=== PATIENT | male | born 1945 | race Caucasian/White ===

== ENCOUNTER 2024-06-13 13:26 | Emergency (ER) | payer MEDICARE, SELFPAY ==
--- NOTE | ~2024-06-13 | XR_ITS ---
EXAMINATION: XR CHEST CLINICAL INFORMATION: Vomiting hypoxia evaluate for pneumonia. COMPARISON: Prior chest March 2012. TECHNIQUE: Frontal view of the chest was obtained. FINDINGS: Sternotomy wires in place intact. Lungs clear. Cardiomediastinal silhouette is normal. Spondylosis of the dorsal spine. XR/XR chest 1V IMPRESSION: No acute disease. No x-ray evidence of pneumonia Electronically signed by: Wm Taylor MD 06/13/2024 04:20 PM EDT
[2024-06-13 13:42] VITALS: BP 161/101; PULSE 70; O2SAT 97; BMI 32.2
[2024-06-13 13:55] VITALS: BP 150/81; PULSE 77; RESP 20; TEMP 36.8; O2SAT 88
--- NOTE | 2024-06-13 14:02 | ED.SEIZURE ---
HPI - Seizure General Chief Complaint: Seizure Stated Complaint: ?SZ,VOMITED,ETOH USE PER EMS Time Seen by Provider: 06/13/24 14:02 Source: patient and RN notes reviewed Mode of arrival: ambulatory Limitations: no limitations History of Present Illness ED Provider: Dr. Darrel Burden HPI Narrative: 78-year-old male history of coronary disease status post CABG 4 years prior, alcohol use disorder who was brought into the emergency department for evaluation of seizure and vomiting. Information comes mainly from the patient's sister and SUPPLY CHAIN ASSISTANT. The patient is a daily alcohol drinker. the patient cannot estimate how much alcohol he drinks daily. He patient's SUPPLY CHAIN ASSISTANT states the patient was in bed and when she went to check on him he appeared to be lethargic he then started shaking and was foaming from the mouth. He had 1 episode of emesis. She called 911. When the ambulance arrived the patient was awake but confused. Patient was transported to the emergency department by the time he arrived in the emergency department he was awake he was able to tell me his name, he did not know why he was here in the emergency department. The patient has no complaints. Patient's sister states the patient has never had a seizure. She is unaware if he has ever had alcohol withdrawal or delirium tremens Related Data Allergies Allergy/AdvReac Type Severity Reaction Status Date / Time No Known Allergies Allergy Verified 06/13/24 13:44 Review of Systems Review of Systems: Yes all other systems are reviewed and are negative [facility] Past Medical History [facility] Narrative: Social history: The patient lives alone. His sister and SUPPLY CHAIN ASSISTANT here in the emergency department with him. He denies tobacco use. He does drink alcohol but cannot estimate how much he drinks a day. He believes that he had 1 beer today. He denies drug use Social History Social History Alcohol intake: current Alcohol intake frequency: 3 or more drinks per day Smoked in Last 30 Days: No Use of substances other than those prescribed or required for medical reasons: No Advance Directives: Yes Advance Directives on File: Yes Advance Directives Date on File: 06/13/24 Do you have a plan to hurt others: No Plan Physical Exam Vital Signs: Vital Signs: Last Vital Signs Temp 98.4 F 06/13/24 18:39 Pulse 101 H 06/13/24 18:39 Resp 20 06/13/24 18:39 BP 144/69 H 06/13/24 18:39 Pulse Ox 95 06/13/24 18:39 O2 Del Method Room Air 06/13/24 18:39 O2 Flow Rate 2 06/13/24 15:06 BMI result Body Mass Index 32.2 vital signs revealed an elevated heart rate of 101, elevated blood pressure 144/96 O2 saturation on room air was 92% and on 2 L per minute nasal cannula O2 saturation was 95%. Exam: General: Awake, alert in no distress , disheveled Head: Normocephalic, atraumatic EENT: PERRL, Lids normal, sclera normal, conjunctiva normal, nose normal , ears normal, throat without erythema or exudates Neck: Supple, no adenopathy Lung: breath sounds symmetric, no wheezing, rales or rhonchi Chest: symmetric movement, nontender Heart: regular rate and rhythm, normal S1, S2 no murmurs or rubs Abdomen: soft, non-tender, nondistended, normal bowel sounds Back: no vertebral tenderness, no CVAT Extremities: no deformities, moves all extremities symmetrically Neuro: Awake, alert, oriented, normal speech, cranial nerves intact, moves all extremities symmetrically Psych: cooperative Medications Administered Discontinued Medications Generic Name Dose Route Start Last Admin Trade Name Freq PRN Reason Stop Dose Admin Sodium Chloride 1,000 mls @ 999 mls/hr 06/13/24 14:03 06/13/24 15:12 Ns IV 06/13/24 15:03 999 mls/hr .Q1H1M STA Administration Ondansetron HCl 4 mg 06/13/24 14:03 06/13/24 15:17 Ondansetron Hcl 4 Mg/2 Ml Vial IVPUSH 06/13/24 14:04 4 mg ONCE ONE Administration Medical Decision Making Medical Decision Making MDM Narrative: 78-year-old male history of coronary disease status post CABG 4 years prior, alcohol use disorder who was brought into the emergency department for evaluation of seizure and vomiting. seizure was witnessed by the patient's SUPPLY CHAIN ASSISTANT, the patient had tremors, frothing at the mouth and altered level of consciousness. Patient was postictal and was back to his baseline by the time he arrived in the emergency department. Patient cannot estimate how much he drinks a day but states that he had 1 beer today. Vital signs revealed an elevated blood pressure and elevated heart rate. Physical examination was unremarkable Differential diagnosis: Includes but is not limited to new onset seizure, alcohol withdrawal seizure, alcohol withdrawal, aspiration pneumonia, cardiac arrhythmia, myocardial infarction, myocardial ischemia Course: My interpretation patient's laboratory evaluation is as follows: CBC was normal. PT/INR and PTT were normal. VBG was normal with a pH of 7.37, pCO2 44, bicarb of 26. Glucose was elevated 187. Lactic acid was elevated 2.9-this is secondary to seizure and not an infectious process. BNP was elevated 385. LFTs and lipase were normal. Urinalysis was negative. Urine tox screen was negative. Alcohol level was below detectable limits. COVID-19, influenza and RSV were negative. Patient's chest x-ray was unremarkable with no evidence for pneumonia. patient's EKG revealed atrial fibrillation with normal ventricular rate -sister states that this is chronic any does take digoxin Eliquis and other medications for his heart condition. patient's presentation is consistent with an alcohol withdrawal seizure. The patient was able to get up and walk at the end of his evaluation. Patient does have a why base slightly ataxic gait and I believe this is due to his alcohol use disorder. I did offer the patient evaluation by our recovery unit operator however he refused. Patient states he just wants to go home. Patient does live alone in the sister's concerned about this but the patient does not want to be seen by case management. Patient was discharged in the care of his sister. I told the patient that he should take multivitamins that her high in time and folate get help with his alcohol use disorder. 06/14/2024 at 08:45 hours I did make a follow-up call this morning to the patient's sister, Nae, to check on the patient. She states that they got him home safely got him cleaned up and she believes that he is fine. She states she is going to check on him this morning and checked on his bandages. I told her if she had any concerns you should bring him back to emergency department for re-evaluation. Admission/Observation Consideration of admission/observation: Escalation of care including admission/observation considered ( Yes) Lab Data MDM Lab Attestation statement: I reviewed the patient's lab results. see discussion above 06/13/24 14:45 06/13/24 14:45 Labs: Lab Results 09/09/24 09/09/24 09/09/24 Range/Units 14:45 14:56 17:04 WBC 10.8 (4.8-10.8) X10*3/uL RBC 4.47 L (4.60-5.80) X10*6/uL Hgb 15.1 (14.0-18.0) g/dl Hct 43.4 (42.0-52.0) % MCV 97.1 (80.0-98.0) fL MCH 33.8 H (27.0-33.0) pg MCHC 34.8 (31.0-36.0) g/dl RDW 12.5 (11.0-16.0) % Plt Count 324 (160-400) X10*3/uL MPV 9.6 (9.4-12.4) fL Immature Gran % (Auto) 0.6 H (0.0-0.4) % Neut % (Auto) 80.6 H (45-73) % Lymph % (Auto) 11.9 L (20-40) % Curry % (Auto) 5.6 (2-11) % Eos % (Auto) 0.8 (0-4) % Baso % (Auto) 0.5 (0-2) % Lymph # (Auto) 1.3 (1.2-4.9) X10*3/uL Curry # (Auto) 0.6 (0.1-1.2) X10*3/uL Eos # (Auto) 0.1 (0.0-0.4) X10*3/uL Baso # (Auto) 0.1 (0.0-0.2) X10*3/uL Abs Immat Gran (auto) 0.07 H (0.00-0.03) X10*3/uL Absolute Neuts (auto) 8.7 H (2.0-8.3) x10*3/uL Absolute Nucleated RBC 0.000 (0.0-0.012) X10*3/uL Nucleated RBC % (auto) 0.0 (0.0-0.2) /100WBC PT 12.8 (11.1-13.3) SEC INR 1.1 (0.9-1.1) APTT 32.8 (26.0-36.8) SEC VBG pH 7.37 (7.32-7.43) VBG pCO2 44 mmHg VBG pO2 53 mmHg VBG HCO3 26 (22-26) mmol/L VBG O2 Saturation 83.0 % VBG Base Excess 0.6 mmol/L Sodium 139 (135-145) mmol/L Potassium 3.4 (3.3-5.1) mmol/L Chloride 104 (96-108) mmol/L Carbon Dioxide 24 (22-29) mmol/L Anion Gap 14 (12-20) BUN 12 (9-16) mg/dL Creatinine 0.92 (0.5-1.4) mg/dL Estim Creat Clear Calc 62.4 Estimated GFR > 60 Random Glucose 187 H (60-115) mg/dL Lactic Acid 2.9 H* (0.5-2.0) mmol/L Lactic Acid F/U @ 2Hr (0.5-2.0) mmol/L Calcium 9.3 (8.4-10.2) mg/dL Magnesium 1.7 (1.6-2.6) mg/dL Total Bilirubin 0.5 (0.0-1.0) mg/dL AST 35 (5-37) U/L ALT 31 (0-40) U/L Alkaline Phosphatase 84 (39-117) U/L Troponin I High Sens 6.6 (<3.5-35.0) ng/L B-Natriuretic Peptide 385 H (<100) pg/mL Total Protein 6.9 (6.5-8.0) g/dL Albumin 3.8 (3.5-5.0) g/dL Lipase 34 (8-78) U/L Urine Color Yellow Urine Appearance Clear Urine pH 5.5 (5.0-9.0) Ur Specific [place] 1.010 (1.005-1.025) Urine Protein Negative (Neg-Trace) mg/dL Urine Glucose (UA) Negative (Negative) mg/dL Urine Ketones Negative (Negative) mg/dL Urine Blood Negative (Negative) Urine Nitrite Negative (Negative) Ur Leukocyte Esterase Negative (Negative) Urine Opiates Screen Not Detected (Not Detect) Ur Buprenorphine Scrn Not Detected (Not Detect) ng/mL Ur Oxycodone Screen Not Detected (Not Detect) ng/mL Urine Methadone Screen Not Detected (Not Detect) ng/mL Urine Fentanyl Screen Not Detected (Not Detect) Ur Barbiturates Screen Not Detected (Not Detect) Ur Phencyclidine Scrn Not Detected (Not Detect) Ur Amphetamines Screen Not Detected (Not Detect) U Benzodiazepines Scrn Not Detected (Not Detect) Urine Cocaine Screen Not Detected (Not Detect) U Marijuana (THC) Screen Not Detected (Not Detect) Ethyl Alcohol < 10 mg/dL Influenza Type A (PCR) NEGATIVE (Negative) Influenza Type B (PCR) NEGATIVE (Negative) RSV RNA Qual (PCR) NEGATIVE (Negative) SARS-CoV-2 RNA (RT-PCR) NEGATIVE (Negative) 06/13/24 Range/Units 17:14 WBC (4.8-10.8) X10*3/uL RBC (4.60-5.80) X10*6/uL Hgb (14.0-18.0) g/dl Hct (42.0-52.0) % MCV (80.0-98.0) fL MCH (27.0-33.0) pg MCHC (31.0-36.0) g/dl RDW (11.0-16.0) % Plt Count (160-400) X10*3/uL MPV (9.4-12.4) fL Immature Gran % (Auto) (0.0-0.4) % Neut % (Auto) (45-73) % Lymph % (Auto) (20-40) % Curry % (Auto) (2-11) % Eos % (Auto) (0-4) % Baso % (Auto) (0-2) % Lymph # (Auto) (1.2-4.9) X10*3/uL Curry # (Auto) (0.1-1.2) X10*3/uL Eos # (Auto) (0.0-0.4) X10*3/uL Baso # (Auto) (0.0-0.2) X10*3/uL Abs Immat Gran (auto) (0.00-0.03) X10*3/uL Absolute Neuts (auto) (2.0-8.3) x10*3/uL Absolute Nucleated RBC (0.0-0.012) X10*3/uL Nucleated RBC % (auto) (0.0-0.2) /100WBC PT (11.1-13.3) SEC INR (0.9-1.1) APTT (26.0-36.8) SEC VBG pH (7.32-7.43) VBG pCO2 mmHg VBG pO2 mmHg VBG HCO3 (22-26) mmol/L VBG O2 Saturation % VBG Base Excess mmol/L Sodium (135-145) mmol/L Potassium (3.3-5.1) mmol/L Chloride (96-108) mmol/L Carbon Dioxide (22-29) mmol/L Anion Gap (12-20) BUN (9-16) mg/dL Creatinine (0.5-1.4) mg/dL Estim Creat Clear Calc Estimated GFR Random Glucose (60-115) mg/dL Lactic Acid (0.5-2.0) mmol/L Lactic Acid F/U @ 2Hr 2.3 H* (0.5-2.0) mmol/L Calcium (8.4-10.2) mg/dL Magnesium (1.6-2.6) mg/dL Total Bilirubin (0.0-1.0) mg/dL AST (5-37) U/L ALT (0-40) U/L Alkaline Phosphatase (39-117) U/L Troponin I High Sens (<3.5-35.0) ng/L B-Natriuretic Peptide (<100) pg/mL Total Protein (6.5-8.0) g/dL Albumin (3.5-5.0) g/dL Lipase (8-78) U/L Urine Color Urine Appearance Urine pH (5.0-9.0) Ur Specific [place] (1.005-1.025) Urine Protein (Neg-Trace) mg/dL Urine Glucose (UA) (Negative) mg/dL Urine Ketones (Negative) mg/dL Urine Blood (Negative) Urine Nitrite (Negative) Ur Leukocyte Esterase (Negative) Urine Opiates Screen (Not Detect) Ur Buprenorphine Scrn (Not Detect) ng/mL Ur Oxycodone Screen (Not Detect) ng/mL Urine Methadone Screen (Not Detect) ng/mL Urine Fentanyl Screen (Not Detect) Ur Barbiturates Screen (Not Detect) Ur Phencyclidine Scrn (Not Detect) Ur Amphetamines Screen (Not Detect) U Benzodiazepines Scrn (Not Detect) Urine Cocaine Screen (Not Detect) U Marijuana (THC) Screen (Not Detect) Ethyl Alcohol mg/dL Influenza Type A (PCR) (Negative) Influenza Type B (PCR) (Negative) RSV RNA Qual (PCR) (Negative) SARS-CoV-2 RNA (RT-PCR) (Negative) Independent Interpretation I performed an independent interpretation of an: EKG and Plain X-Ray Interpretation: my independent interpretation of the patient's one-view chest x-ray as follows: No acute pneumonia or other significant abnormalities noted My independent interpretation the patient's 12 EKG is as follows: Atrial fibrillation with a rate of 84, normal QRS and QTC intervals, Q-waves in V1 and V2, no significant ST segment elevation or depression, no specific T-wave abnormalities, no PACs no PVCs.. There is no old EKG for comparison Radiology Impression Discussion of test interpretation with radiology: I have reviewed the radiologist's reading. Radiologist Impression: XR chest 1V IMPRESSION: No acute disease. No x-ray evidence of pneumonia Dictated By: Wm Taylor MD Independent Historian Clinical information obtained from an independent historian. History obtained from or confirmed by: Other ( Sister and SUPPLY CHAIN ASSISTANT) Chronic Conditions Patient?s care impacted by: Other ( alcohol use disorder) Discharge Plan Discharge Clinical Impression: Alcohol withdrawal seizure, Alcohol use disorder Patient Disposition: Home, Self-Care Instructions: Alcohol Use Disorder (ED) Additional Instructions: At this time I believe that you had an alcohol withdrawal seizure. You should take a multi vitamin that is high in thiamine and folate every day to try to prevent damage to your nervous system from drinking alcohol. You can follow-up with our comprehensive care clinic if you want to try to get into an alcohol treatment program. Follow-up with your doctor in 2 days. Please return to the emergency department if your symptoms get worse or if you develop any symptoms that are concerning to you. Interventions: ED Discharge Assessment Last Done: 06/13/24 18:39 Discharge Date/Time: 06/13/24 18:40 Print Language: Malagasy
--- NOTE | 2024-06-13 14:03 | ECG_ITS ---
Test Reason : seizure Blood Pressure : / mmHG Vent. Rate : 084 BPM Atrial Rate : 000 BPM P-R Int : 000 ms QRS Dur : 072 ms QT Int : 396 ms P-R-T Axes : 000 036 078 degrees QTc Int : 467 ms Atrial fibrillation Septal infarct , age undetermined Nonspecific T wave abnormality Abnormal ECG When compared with ECG of 01-APR-2012 19:26, Atrial fibrillation has replaced Sinus rhythm Septal infarct is now Present Nonspecific T wave abnormality, worse in Inferior leads Nonspecific T wave abnormality now evident in Lateral leads Referred By: Darrel Burden Electronically Signed By:JORGE JONES
--- NOTE | 2024-06-13 14:10 | PC.NURSE ---
On 2LNC and his saturation is 90-91 percent, attending is aware
[2024-06-13 14:57] LABS: MANUAL DIFF FLAG NO
[2024-06-13 14:59] LABS: Basophils Absolute Auto 0.1 X10*3/uL (0.0-0.2); Basophils Percent Auto 0.5 % (0-2); Eosinophils Absolute Auto 0.1 X10*3/uL (0.0-0.4); Eosinophils Percent Auto 0.8 % (0-4); Hematocrit 43.4 % (42.0-52.0); Hemoglobin 15.1 g/dl (14.0-18.0); Imm Gran Abs Auto 0.07 X10*3/uL (0.00-0.03); Imm Gran Pct Auto 0.6 % (0.0-0.4); Lymphocytes Absolute Auto 1.3 X10*3/uL (1.2-4.9); Lymphocytes Percent Auto 11.9 % (20-40); Mean Corpuscular HGB Conc 34.8 g/dl (31.0-36.0); Mean Corpuscular Hemoglobin 33.8 pg (27.0-33.0); Mean Corpuscular Volume 97.1 fL (80.0-98.0); Mean Platelet Volume 9.6 fL (9.4-12.4); Monocytes Absolute Auto 0.6 X10*3/uL (0.1-1.2); Monocytes Percent Auto 5.6 % (2-11); Neutrophils Absolute Auto 8.7 x10*3/uL (2.0-8.3); Neutrophils Percent Auto 80.6 % (45-73); Platelet Count 324 X10*3/uL (160-400); Red Blood Count 4.47 X10*6/uL (4.60-5.80); Red Cell Distribution Width 12.5 % (11.0-16.0); White Blood Count 10.8 X10*3/uL (4.8-10.8)
[2024-06-13 15:03] LABS: INTERNATIONAL NORM RATIO 1.1 (0.9-1.1); Prothrombin Time 12.8 SEC (11.1-13.3)
[2024-06-13 15:06] VITALS: BP 137/83; PULSE 91; RESP 20; TEMP 36.8; O2SAT 93
[2024-06-13 15:06] LABS: Partial Thromboplastin Time 32.8 SEC (26.0-36.8)
[2024-06-13] MEDS: 0.9 % Sodium Chloride 1,000 ML 999 ML IV (15:12)
[2024-06-13] MEDS: ondansetron HCL 4 MG/2 ML VIAL IVPUSH (15:17)
[2024-06-13 15:19] LABS: B Type Natriuretic Peptide 385 pg/mL (<100); Troponin-I High Sensitivity 6.6 ng/L (<3.5-35.0)
[2024-06-13 15:21] LABS: Alanine Aminotransferase 31 U/L (0-40); Albumin Level 3.8 g/dL (3.5-5.0); Alkaline Phosphatase 84 U/L (39-117); Anion Gap 14 (12-20); Aspartate Amino Transferase 35 U/L (5-37); Bilirubin Total 0.5 mg/dL (0.0-1.0); Blood Urea Nitrogen 12 mg/dL (9-16); Calcium 9.3 mg/dL (8.4-10.2); Carbon Dioxide 24 mmol/L (22-29); Chloride 104 mmol/L (96-108); Creatinine Clr Calc Pharmacy 62.4; Estimated Glomerular Filt Rate > 60; Ethanol < 10 mg/dL; Glucose Random 187 mg/dL (60-115); Lipase 34 U/L (8-78); Magnesium 1.7 mg/dL (1.6-2.6); Potassium 3.4 mmol/L (3.3-5.1); Sodium 139 mmol/L (135-145); Total Protein 6.9 g/dL (6.5-8.0)
[2024-06-13 15:33] LABS: Lactic Acid 2.9 mmol/L (0.5-2.0)
[2024-06-13 15:37] LABS: Influenza A PCR NEGATIVE (Negative); Influenza B PCR NEGATIVE (Negative); Resp Syncy Virus RNA Qual PCR NEGATIVE (Negative); SARS COV2 PCR INHOUSE NEGATIVE (Negative)
[2024-06-13 15:46] LABS: VBG Base Excess 0.6 mmol/L; VBG HCO3 26 mmol/L (22-26); VBG pCO2 44 mmHg; VBG pH 7.37 (7.32-7.43); VBG pO2 53 mmHg
[2024-06-13 15:48] LABS: Venous Blood Gas Refer to POC result
[2024-06-13 16:56] LABS: Reflex Lactate? Lactic Acid Added
[2024-06-13 17:14] LABS: Appearance Urine Clear; Color Urine Yellow; Glucose Urine UA Negative (Negative); Leukocyte Esterase Urine Negative (Negative); Nitrite Urine Negative (Negative); PH 5.5 (5.0-9.0); Urine Blood Negative (Negative); Urine Ketones Negative (Negative); Urine Protein Negative (Neg-Trace)
--- NOTE | 2024-06-13 17:17 | PC.NURSE ---
bilateral coccyx are a stage 1, no breakdown noted. Triad cream applied.
[2024-06-13 17:23] LABS: Amphetamine Screen Urine Not Detected (Not Detect); Barbiturates, Urine Not Detected (Not Detect); Benzodiazepines Screen Urine Not Detected (Not Detect); Buprenorphine Scr Not Detected (Not Detect); Cannabinoid Screen Urine Not Detected (Not Detect); Cocaine Screen Urine Not Detected (Not Detect); Fentanyl, urine Not Detected (Not Detect); Methadone Screen, Urine Not Detected (Not Detect); Opiate Screen Urine Not Detected (Not Detect); Oxycodone Screen Urine Not Detected (Not Detect); Phencyclidine Screen Urine Not Detected (Not Detect)
--- NOTE | 2024-06-13 17:49 | MHC.EDTECH ---
Patient inc therfore patient changed and repositioned
[2024-06-13 17:59] LABS: ~Lactic Acid-LAB USE ONLY 2.3 mmol/L (0.5-2.0)
[2024-06-13 18:39] VITALS: BP 144/69; PULSE 101; RESP 20; TEMP 36.9; O2SAT 95
[2024-06-13 19:18] LABS: Reflex Lactate? 2 Y
== END 2024-06-13 18:40 | disposition home or self-care (01) ==
PROVIDERS: Emergency Provider Emergency Medicine Emergency Medical Services; PCP Physician Assistant Medical
DX: F10.239 Alcohol dependence with withdrawal, unspecified (principal); Y90.0 Blood alcohol level of less than 20 mg/100 ml; R56.9 Unspecified convulsions; R06.02 Shortness of breath; I48.91 Unspecified atrial fibrillation; R94.31 Abnormal electrocardiogram [ECG] [EKG]; I25.10 Atherosclerotic heart disease of native coronary artery without angina pectoris; Z03.818 Encounter for observation for suspected exposure to other biological agents ruled out; Z51.81 Encounter for therapeutic drug level monitoring; Z79.899 Other long term (current) drug therapy
CPT/HCPCS: 0241U; 71045; 80053; 80307; 81003; 82803; 83605; 83690; 83735; 83880; 84484; 85025; 85610; 85730; 87040; 93005; 96374; 99284; J2405

== ENCOUNTER 2025-01-30 13:38 | Inpatient (IN) | payer MEDICARE, SELFPAY ==
[2025-01-30] VITALS (12 sets, daily range): BP systolic 129–148; BP diastolic 62–97; PULSE 89–110; RESP 20–25; TEMP 36.7–37.3; O2SAT 93–98; BMI 33.5
--- NOTE | 2025-01-30 | ECG_ITS ---
Test Reason : ams Blood Pressure : */* mmHG Vent. Rate : 110 BPM Atrial Rate : * BPM P-R Int : * ms QRS Dur : 68 ms QT Int : 388 ms P-R-T Axes : * 5 170 degrees QTcB Int : 525 ms Atrial fibrillation with rapid ventricular response ST & T wave abnormality, consider lateral ischemia Abnormal ECG When compared with ECG of 13-Jun-2024 14:18, T wave inversion now evident in Lateral leads Referred By: Generic ED Physician Electronically Signed By: Reinier Alejandro
--- NOTE | 2025-01-30 | ECG_ITS ---
Test Reason : AMS Blood Pressure : */* mmHG Vent. Rate : 102 BPM Atrial Rate : * BPM P-R Int : * ms QRS Dur : 66 ms QT Int : 332 ms P-R-T Axes : * 18 179 degrees QTcB Int : 432 ms Atrial fibrillation with rapid ventricular response Septal infarct , age undetermined ST & T wave abnormality, consider inferior ischemia ST & T wave abnormality, consider anterolateral ischemia Abnormal ECG When compared with ECG of 30-Jan-2025 14:32, No significant change was found Referred By: Marisol Mota Electronically Signed By: Reinier Alejandro
--- NOTE | ~2025-01-30 | US_ITS ---
EXAMINATION: US SCROTUM CLINICAL INFORMATION: Swelling/edema scrotum.. COMPARISON: Correlated to CT abdomen and pelvis dated January 30, 2025. TECHNIQUE: A sonogram of the scrotum was performed assessing schwarz-scale appearance and color Doppler flow. Spectral Doppler analysis of the arterial and venous flow were performed in the testes bilaterally. FINDINGS: RIGHT: Right testicle measures 4.7 x 1.5 x 2.8 cm, volume 11 mL. No solid or cystic lesion. Normal echotexture. Spectral Doppler analysis of the arterial and venous flow is normal in the right testis. Right epididymal head size is normal. There. Less than 6 mm simple cyst. Right epididymal Doppler flow is normal. There is a large volume of free fluid with the internal echoes likely related to artifact. There is no prominence of the pampiniform plexus. LEFT: Left testicle measures 4.2 x 2.1 x 3.3 cm, volume 15 mL. Normal echotexture. No solid or cystic lesion. Spectral Doppler analysis of the arterial and venous flow is normal in the left testis. Left epididymal head size is normal. There are few simple cysts, the largest measures 14 mm.. Left epididymal Doppler flow is normal. There is a moderate volume of free fluid in the scrotal sac without septations or internal echoes. There is no prominence of the pampiniform plexus. US/US scrotum IMPRESSION: Bilateral hydroceles, large volume on the right scrotal sac and moderate volume on the left side. No testicular torsion or testicular mass. No varicocele. Electronically signed by: Arias Hagen MD 02/01/2025 08:34 AM EDT
--- NOTE | ~2025-01-30 | XR_ITS ---
EXAMINATION: XR FOOT, LEFT CLINICAL INFORMATION: Fall and pain COMPARISON: Correlated to left ankle dated July 18, 2017. TECHNIQUE: AP, lateral, and oblique views of the left foot. FINDINGS: Subchondral cyst formation sclerosis of the articular surface, joint space narrowing with without widening of the osseous structures in the first metatarsophalangeal joint. Osteopenia versus osteoporosis. No acute cortical disruption. Metallic hardware in the lateral and medial malleolus no fully included. Vascular calcifications. Degenerative changes in the phalanges of the toes. Degenerative changes in the tarsal bones. No subcutaneous emphysema. XR/XR foot LT min 3V IMPRESSION: Severe degenerative changes seen involving the first metatarsophalangeal joint. No acute fracture or dislocation. Atherosclerosis disease, peripheral. Electronically signed by: Arias Hagen MD 01/30/2025 03:33 PM EDT
--- NOTE | ~2025-01-30 | XR_ITS ---
EXAMINATION: XR ANKLE, LEFT CLINICAL INFORMATION: Fall and pain COMPARISON: July 28, 2017. TECHNIQUE: AP, lateral, and mortise views of the left ankle. FINDINGS: Metallic plate distal fibula, lateral malleolus and screws through the medial malleolus. No acute cortical disruption or gross malalignment. Degenerative changes in the tarsal bones. Vascular calcifications. Soft tissue edema pattern, lateral malleolus. No subcutaneous emphysema. XR/XR ankle LT min 3V IMPRESSION: Degenerative changes without acute fracture or dislocation. Status post open reduction internal fixation of prior ankle fracture. Atherosclerosis disease, peripheral. Electronically signed by: Arias Hagen MD 01/30/2025 03:34 PM EDT
--- NOTE | ~2025-01-30 | CT_ITS ---
EXAMINATION: CT HEAD WITHOUT CONTRAST CLINICAL INFORMATION: Found on floor, seizure versus fall. COMPARISON: 04/01/2012. TECHNIQUE: Contiguous axial imaging was performed from the skull base to vertex without intravenous administration of contrast. This CT examination was performed using dose optimization techniques as appropriate, variously including the following: *Automated exposure control *Adjustment of mA and/or kV according to patient size (this includes techniques or standardized protocols for targeted exams where dose is matched to indication/reason for exam; i.e. extremities or head) *Use of iterative reconstruction technique FINDINGS: There is no evidence of intracranial hemorrhage or extra-axial fluid collection. There is no mass effect, or edema. No CT evidence of acute territorial infarct. Ventricles, sulci, and cisterns are somewhat diffusely prominent, in keeping with age advanced cerebral and cerebellar volume loss. No hydrocephalus. No midline shift. Negative hyperdense MCA sign. Negative insular ribbon sign. Patchy periventricular and deep white matter hypoattenuation is consistent with moderate to severe small vessel ischemic changes. 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 Heavy atheromatous calcification of the bilateral carotid siphons and V4 segments vertebral arteries bilaterally. 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 Globes and orbital contents image normally. Extracranial soft tissues demonstrate a subgaleal low-density fluid collection in the posterior parieto-occipital scalp. This measures 29 Hounsfield units. This is likely an evolving hematoma. The paranasal sinuses, mastoid air cells, and tympanic cavities are normally aerated. No suspicious bony abnormalities. There are no acute fractures evident. Cerumen impaction in both EACs. CT/CT head/brain wo IV con IMPRESSION: 1. No acute intracranial abnormality. 2. Moderate to severe small vessel ischemic changes, and numerous old lacunar type infarctions in the right cerebellum and bilateral gangliocapsular regions. 3. There is a parieto-occipital subgaleal scalp fluid collection, likely evolving hematoma. 4. Cerumen impaction in both EACs. Electronically signed by: Fausto Rogers MD 01/30/2025 03:51 PM EDT
--- NOTE | ~2025-01-30 | CT_ITS ---
EXAMINATION: CT CERVICAL SPINE WITHOUT CONTRAST CLINICAL INFORMATION: Found on floor, seizure versus fall. COMPARISON: None available. TECHNIQUE: Spiral CT imaging of the cervical spine performed in axial plane without contrast. Multiplanar reformatted images were constructed from the axial data set. This CT examination was performed using dose optimization techniques as appropriate, variously including the following: *Automated exposure control *Adjustment of mA and/or kV according to patient size (this includes techniques or standardized protocols for targeted exams where dose is matched to indication/reason for exam; i.e. extremities or head) *Use of iterative reconstruction technique FINDINGS: CORONAL ALIGNMENT: -Normal. SAGITTAL ALIGNMENT: -Normal. No subluxations. C1-C2 AND CRANIOCERVICAL JUNCTION: -Intact and normally aligned. Mild degenerative changes of the atlantoaxial joint. VERTEBRAL BODIES AND FACETS: -No fracture, compression deformity, traumatic subluxation, or suspicious bone lesion. -Normal facet alignment bilaterally. No facet subluxation. Multilevel hypertrophic degenerative facet changes right greater than left, most significant at C4-5 bilaterally. DISCS: -Multilevel severe disc degeneration, with prominent ventral projecting disc osteophytes most prominent spanning C5-C7. CENTRAL CANAL: -No evidence of high-grade central canal narrowing or large disc herniation allowing for modality limitations. PREVERTEBRAL AND PARAVERTEBRAL SOFT TISSUES: -No prevertebral or paravertebral soft tissue swelling or abnormal fluid collection. -Moderate bilateral carotid bulb calcification. -No thyroid abnormality allowing for motion artifact at this level. 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 Moderate atheromatous calcification of the aortic arch, partially imaged. -Imaged lung apices are clear bilaterally allowing for respiratory motion. CT/CT cervical spine wo IV con IMPRESSION: 1. No CT evidence of acute cervical spine fracture or injury. 2. Extensive degenerative spondylosis of the cervical spine. 3. Ancillary findings as discussed. Electronically signed by: Fausto Rogers MD 01/30/2025 04:04 PM EDT
--- NOTE | ~2025-01-30 | XR_ITS ---
EXAMINATION: XR CHEST CLINICAL INFORMATION: Fall COMPARISON: June 13, 2024. TECHNIQUE: Frontal view of the chest was obtained. FINDINGS: No consolidation, pleural effusion or pneumothorax. Poor inspiration. Sternal wires. Cardiomediastinal silhouette size is normal. Calcified plaque thoracic aorta. Vascular clips in the mediastinum likely CABG procedure. S-shaped curvature of the thoracolumbar spine. Degenerative changes in the left shoulder. Prominent gas-filled small bowel loops in the upper abdomen. XR/XR chest 1V IMPRESSION: No acute airspace disease. Acute intra-abdominal process cannot be excluded. Electronically signed by: Arias Hagen MD 01/30/2025 04:19 PM EDT
--- NOTE | ~2025-01-30 | XR_ITS ---
EXAMINATION: XR ANKLE, RIGHT CLINICAL INFORMATION: Ecchymosis COMPARISON: None available. TECHNIQUE: AP, lateral, and mortise views of the right ankle. FINDINGS: No acute cortical disruption or malalignment. Soft tissue edema pattern, lateral malleolus. Degenerative changes. Vascular calcifications. Soft tissue edema pattern, lateral malleolus. XR/XR ankle RT 2V IMPRESSION: No acute fracture or dislocation. Atherosclerosis disease, peripheral. Degenerative changes. Electronically signed by: Arias Hagen MD 01/30/2025 03:30 PM EDT
--- NOTE | ~2025-01-30 | CT_ITS ---
CLINICAL HISTORY: Abnormal chest x-ray, suspicion for SBO CT abdomen and pelvis without contrast Comparison: None Findings: No consolidation at the lung bases. No cardiomegaly. Severe calcified coronary artery disease. Mild calcification of the aortic valve. Unremarkable gallbladder. Distended bladder, measuring 18.6 cm in craniocaudal dimension. Subsequent mild bilateral hydroureteronephrosis. No urinary tract stone. The prostate measures 4.5 cm in transverse dimension with mild intravesicular extension. Hepatic steatosis. The other solid organs are unremarkable. No bowel wall thickening or dilation. A normal appendix is identified. No aneurysm. Severe calcified atherosclerotic disease. No lymphadenopathy. No ascites. Large bilateral hydroceles, [id number]-left. There is scrotal edema. No soft tissue gas. No acute osseous abnormality. Impression: Marked distention of the bladder with subsequent mild bilateral hydroureteronephrosis. No urinary tract stone. Consider chronic outlet obstruction secondary to BPH. Large bilateral hydroceles, [id number]-left. Scrotal edema. No bowel obstruction. This document has been electronically signed by: Donna Pedroza MD on 01/30/2025 17:53:50
--- NOTE | ~2025-01-30 | US_ITS ---
EXAMINATION: US SCROTUM CLINICAL INFORMATION: Swelling/edema scrotum.. COMPARISON: Correlated to CT abdomen and pelvis dated January 30, 2025. TECHNIQUE: A sonogram of the scrotum was performed assessing schwarz-scale appearance and color Doppler flow. Spectral Doppler analysis of the arterial and venous flow were performed in the testes bilaterally. FINDINGS: RIGHT: Right testicle measures 4.7 x 1.5 x 2.8 cm, volume 11 mL. No solid or cystic lesion. Normal echotexture. Spectral Doppler analysis of the arterial and venous flow is normal in the right testis. Right epididymal head size is normal. There. Less than 6 mm simple cyst. Right epididymal Doppler flow is normal. There is a large volume of free fluid with the internal echoes likely related to artifact. There is no prominence of the pampiniform plexus. LEFT: Left testicle measures 4.2 x 2.1 x 3.3 cm, volume 15 mL. Normal echotexture. No solid or cystic lesion. Spectral Doppler analysis of the arterial and venous flow is normal in the left testis. Left epididymal head size is normal. There are few simple cysts, the largest measures 14 mm.. Left epididymal Doppler flow is normal. There is a moderate volume of free fluid in the scrotal sac without septations or internal echoes. There is no prominence of the pampiniform plexus. US/US scrotum doppler IMPRESSION: Bilateral hydroceles, large volume on the right scrotal sac and moderate volume on the left side. No testicular torsion or testicular mass. No varicocele. Electronically signed by: Arias Hagen MD 02/01/2025 08:34 AM EDT
[2025-01-30 14:17] LABS: MANUAL DIFF FLAG NO
[2025-01-30 14:18] LABS: Basophils Percent Auto 0.1 % (0-2); Eosinophils Percent Auto 0.1 % (0-4); Hematocrit 43.7 % (42.0-52.0); Hemoglobin 15.6 g/dl (14.0-18.0); Imm Gran Pct Auto 0.9 % (0.0-0.4); Lymphocytes Absolute Auto 0.7 X10*3/uL (1.2-4.9); Lymphocytes Percent Auto 3.1 % (20-40); Mean Corpuscular HGB Conc 35.7 g/dl (31.0-36.0); Mean Corpuscular Hemoglobin 33.4 pg (27.0-33.0); Mean Corpuscular Volume 93.6 fL (80.0-98.0); Mean Platelet Volume 9.6 fL (9.4-12.4); Monocytes Absolute Auto 1.4 X10*3/uL (0.1-1.2); Monocytes Percent Auto 6.3 % (2-11); Neutrophils Absolute Auto 19.6 x10*3/uL (2.0-8.3); Neutrophils Percent Auto 89.5 % (45-73); Platelet Count 297 X10*3/uL (160-400); Red Blood Count 4.67 X10*6/uL (4.60-5.80); Red Cell Distribution Width 13.1 % (11.0-16.0); White Blood Count 21.9 X10*3/uL (4.8-10.8)
[2025-01-30 14:33] LABS: Glucose, Whole Blood 178 mg/dL (60-115)
--- NOTE | 2025-01-30 14:42 | ED_ITS ---
HPI - Altered Mental Status General Chief Complaint: Altered Mental Status Stated Complaint: AMS,WEAK,ON FLOOR TWO DAYS PER EMS Time Seen by Provider: 01/30/25 14:41 Source: patient, family (Sister who is HCP) and EMS Mode of arrival: EMS Limitations: altered mental status (Patient is a limited historian.) History of Present Illness ED Provider: DR. 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 Patient came in by EMS after was found by [facility] on the floor last was seen by [facility] was Thursday and he was fine, EMS predict 2 days being on the floor, patient found to be soaked in urine and stool. Patient has no complaint. Sister confirmed that patient drinks alcohol but unknown how often and how much he drinks. Sister stated that patient can not shop for himself not sure who buy the alcohol for him. Related Data Home Medications ?Medication ?Instructions ?Recorded ?Confirmed amlodipine 5 mg tablet 5 mg PO DAILY 01/30/25 apixaban 5 mg tablet (Eliquis) 5 mg PO BID 01/30/25 atorvastatin 40 mg tablet 40 mg PO DAILY 01/30/25 carvedilol 12.5 mg tablet 12.5 mg PO BID 01/30/25 citalopram 10 mg tablet 10 mg PO DAILY 01/30/25 digoxin 125 mcg (0.125 mg) tablet 125 mcg PO DAILY 01/30/25 furosemide 40 mg tablet 40 mg PO DAILY 01/30/25 lisinopril 40 mg tablet 40 mg PO DAILY 01/30/25 Allergies Allergy/AdvReac Type Severity Reaction Status Date / Time No Known Allergies Allergy Verified 01/30/25 13:49 Review of Systems 2 Review of Systems: Yes Unobtainable due to mental status PMFSH Social History Social History Alcohol intake: current Alcohol intake frequency: 3 or more drinks per day Advance Directives: Yes Advance Directives on File: Yes Advance Directives Date on File: 06/13/24 Physical Exam ED Vital Signs: Vital Signs - 24 hr 01/30/25 13:48 01/30/25 15:46 01/30/25 17:16 Temperature 98.2 F 99.0 F 98.2 F Pulse Rate 105 H 89 101 H Respiratory Rate 20 24 H 24 H Blood Pressure 144/97 H 129/81 134/77 Pulse Oximetry 96 96 96 Oxygen Delivery Method Room Air Room Air Room Air 01/30/25 18:18 Temperature 98.2 F Pulse Rate 99 Respiratory Rate 24 H Blood Pressure 139/82 Pulse Oximetry 96 Oxygen Delivery Method Room Air BMI result Body Mass Index 33.5 Vital signs have been reviewed and appear to be correct. Blood pressure elevated. Heart rate normal. Respiratory rate normal. Temperature normal. Oxygen saturation normal. Appearance: Alert. Oriented X2 place and event. No acute distress. Head: Normal external exam. Normocephalic. Atraumatic. No Benavides signs noted. No raccoon eyes noted Eyes: PERRLA. EOMI. Conjunctiva and sclera normal. Eyelids normal. ENT: TM's Normal. Pharynx normal. Uvula midline. Moist mucous membranes. No trismus noted. No drooling noted. No muffled voice noted. Neck: Normal inspection. Neck supple. FROM. No adenopathy. Thyroid Normal. No meningeal signs. No neck mass noted. CVS: Normal heart rate and rhythm. Heart sound normal. No murmurs noted. Pulses normal throughout. Respiratory: No respiratory distress. Painless inspiration. Breath sounds normal. No wheezes/rales/rhonchi noted. Chest nontender. No accessory muscle usage noted or decreased air movement noted. Abdomen: Soft and nontender. Bowel sounds normal in all 4 quadrants. No distention noted. No organomegaly noted. No visible injury noted. Back: No CVA tenderness. Full range of motion noted. Skin: Beefy red moist, satelitte lesion on the thigh and on the buttock. Extremities: Ecchymosis and swelling over the lateral right malleolus, neurovascularly intact. Neuro:. Cranial nerve exam: II-XII are grossly intact No motor deficit. No sensory deficit. Reflexes normal. Course Reevaluation(s) Reevaluation #1: Change mental status, rhabdomyolysis, patient initially received 1 empirical dose of ceftriaxone. Lactic acidosis and increased CPK is likely secondary to withdrawal seizure. No sepsis or septic shock. Distended urinary bladder, Sol catheter was placed 1400 cc a of dark urine was drained. Atrial fibrillation at 102 possibly new onset. Admit. IV fluids for rhabdomyolysis. Time: 18:22 Medications Administered Discontinued Medications Generic Name Dose Route Start Last Admin Trade Name Tracy PRN Reason Stop Dose Admin Ceftriaxone Sodium 1 gm 01/30/25 15:00 01/30/25 15:09 Ceftriaxone Sodium 1 Gm Vial IVPUSH 01/30/25 15:01 1 gm ONCE ONE Administration Lactated Ringer's 1,000 mls @ 999 mls/hr 01/30/25 15:00 01/30/25 15:09 Lr IV 01/30/25 16:00 999 mls/hr .Q1H1M RUSH Administration Lidocaine HCl 10 ml 01/30/25 17:48 01/30/25 18:00 Lidocaine Hcl 2 % Urojet 10 Ml Jel.Pf.Lyndon TOPICAL 01/30/25 17:49 10 ml ONCE ONE Administration Nystatin 1 appl 01/30/25 15:35 01/30/25 18:00 Nystatin Cream 15 Gm Tube TOPICAL 01/30/25 15:36 1 appl ONCE ONE Administration Protocol Medical Decision Making Differential Diagnosis Differential Diagnoses: The differential diagnosis associated with the presentation includes (Dehydration, alcohol withdrawal seizure, electrolyte derangement, severe anemia, intracranial bleed, cervical spine injury, SBO, urinary retention) Admission/Observation Consideration of admission/observation: Escalation of care including admission/observation considered Consult Healthcare Provider Management of the patient was discussed with: Hospitalist (Dr. Castellanos) Lab Data MDM Lab Attestation statement: I reviewed the patient's lab results. 01/30/25 14:14 01/30/25 14:14 Labs: Lab Results 01/30/25 01/30/25 01/30/25 Range/Units 14:14 14:29 14:54 WBC 21.9 H (4.8-10.8) X10*3/uL RBC 4.67 (4.60-5.80) X10*6/uL Hgb 15.6 (14.0-18.0) g/dl Hct 43.7 (42.0-52.0) % MCV 93.6 (80.0-98.0) fL MCH 33.4 H (27.0-33.0) pg MCHC 35.7 (31.0-36.0) g/dl RDW 13.1 (11.0-16.0) % Plt Count 297 (160-400) X10*3/uL MPV 9.6 (9.4-12.4) fL Immature Gran % (Auto) 0.9 H (0.0-0.4) % Neut % (Auto) 89.5 H (45-73) % Lymph % (Auto) 3.1 L (20-40) % [place] % (Auto) 6.3 (2-11) % Eos % (Auto) 0.1 (0-4) % Baso % (Auto) 0.1 (0-2) % Lymph # (Auto) 0.7 L (1.2-4.9) X10*3/uL [place] # (Auto) 1.4 H (0.1-1.2) X10*3/uL Eos # (Auto) 0.0 (0.0-0.4) X10*3/uL Baso # (Auto) 0.0 (0.0-0.2) X10*3/uL Abs Immat Gran (auto) 0.20 H (0.00-0.03) X10*3/uL Absolute Neuts (auto) 19.6 H (2.0-8.3) x10*3/uL Absolute Nucleated RBC 0.000 (0.0-0.012) X10*3/uL Nucleated RBC % (auto) 0.0 (0.0-0.2) /100WBC PT 11.7 (10.9-12.4) SEC INR 1.0 (0.9-1.1) Sodium 131 L (135-145) mmol/L Potassium 4.8 D (3.3-5.1) mmol/L Chloride 95 L (96-108) mmol/L Carbon Dioxide 19 L (22-29) mmol/L Anion Gap 22 H (12-20) BUN 33 H (9-16) mg/dL Creatinine 1.15 (0.5-1.4) mg/dL Estim Creat Clear Calc 46.5 Estimated GFR > 60 POC Glucose 178 H (60-115) mg/dL Random Glucose 165 H (60-115) mg/dL Lactic Acid 5.2 H* (0.5-2.0) mmol/L Lactic Acid F/U @ 2Hr (0.5-2.0) mmol/L Calcium 9.6 (8.4-10.2) mg/dL Total Bilirubin 2.0 H (0.0-1.0) mg/dL Direct Bilirubin 0.8 H (0.0-0.5) mg/dL AST 204 H (5-37) U/L ALT 79 H (0-40) U/L Alkaline Phosphatase 121 H (39-117) U/L Total Creatine Kinase 3245 H (38-174) U/L Troponin I High Sens 17.4 D (<3.5-35.0) ng/L B-Natriuretic Peptide 101 H (<100) pg/mL Total Protein 7.9 (6.5-8.0) g/dL Albumin 4.3 (3.5-5.0) g/dL Lipase 28 (8-78) U/L Urine Color Urine Appearance Urine pH (5.0-9.0) Ur Specific [place] (1.005-1.025) Urine Protein (Neg-Trace) mg/dL Urine Glucose (UA) (Negative) mg/dL Urine Ketones (Negative) mg/dL Urine Blood (Negative) Urine Nitrite (Negative) Ur Leukocyte Esterase (Negative) Urine RBC (0-2) /HPF Urine WBC (0-5) /HPF Ur Squamous Epith Cells (0-2) /HPF Urine Bacteria (None Seen) Hyaline Casts (0-2) /LPF Ethyl Alcohol < 10 mg/dL 01/30/25 01/30/25 01/30/25 Range/Units 15:52 17:23 18:19 WBC (4.8-10.8) X10*3/uL RBC (4.60-5.80) X10*6/uL Hgb (14.0-18.0) g/dl Hct (42.0-52.0) % MCV (80.0-98.0) fL MCH (27.0-33.0) pg MCHC (31.0-36.0) g/dl RDW (11.0-16.0) % Plt Count (160-400) X10*3/uL MPV (9.4-12.4) fL Immature Gran % (Auto) (0.0-0.4) % Neut % (Auto) (45-73) % Lymph % (Auto) (20-40) % [place] % (Auto) (2-11) % Eos % (Auto) (0-4) % Baso % (Auto) (0-2) % Lymph # (Auto) (1.2-4.9) X10*3/uL [place] # (Auto) (0.1-1.2) X10*3/uL Eos # (Auto) (0.0-0.4) X10*3/uL Baso # (Auto) (0.0-0.2) X10*3/uL Abs Immat Gran (auto) (0.00-0.03) X10*3/uL Absolute Neuts (auto) (2.0-8.3) x10*3/uL Absolute Nucleated RBC (0.0-0.012) X10*3/uL Nucleated RBC % (auto) (0.0-0.2) /100WBC PT (10.9-12.4) SEC INR (0.9-1.1) Sodium (135-145) mmol/L Potassium (3.3-5.1) mmol/L Chloride (96-108) mmol/L Carbon Dioxide (22-29) mmol/L Anion Gap (12-20) BUN (9-16) mg/dL Creatinine (0.5-1.4) mg/dL Estim Creat Clear Calc Estimated GFR POC Glucose 161 H (60-115) mg/dL Random Glucose (60-115) mg/dL Lactic Acid (0.5-2.0) mmol/L Lactic Acid F/U @ 2Hr 2.9 H* (0.5-2.0) mmol/L Calcium (8.4-10.2) mg/dL Total Bilirubin (0.0-1.0) mg/dL Direct Bilirubin (0.0-0.5) mg/dL AST (5-37) U/L ALT (0-40) U/L Alkaline Phosphatase (39-117) U/L Total Creatine Kinase (38-174) U/L Troponin I High Sens (<3.5-35.0) ng/L B-Natriuretic Peptide (<100) pg/mL Total Protein (6.5-8.0) g/dL Albumin (3.5-5.0) g/dL Lipase (8-78) U/L Urine Color Dark Yellow Urine Appearance Clear Urine pH 5.5 (5.0-9.0) Ur Specific [place] 1.015 (1.005-1.025) Urine Protein 100 (2+) H (Neg-Trace) mg/dL Urine Glucose (UA) Negative (Negative) mg/dL Urine Ketones Trace (Negative) mg/dL Urine Blood Large (3+) H (Negative) Urine Nitrite Negative (Negative) Ur Leukocyte Esterase Negative (Negative) Urine RBC 11-20 H (0-2) /HPF Urine WBC 0-5 (0-5) /HPF Ur Squamous Epith Cells 0-2 (0-2) /HPF Urine Bacteria None Seen (None Seen) Hyaline Casts 3-5 (0-2) /LPF Ethyl Alcohol mg/dL Independent Interpretation I performed an independent interpretation of an: CT Scan (Head/cervical spine CT:1. No CT evidence of acute cervical spine fracture or injury. 2. Extensive degenerative spondylosis of the cervical spine. 3. Ancillary findings as discussed.) Radiology Impression Discussion of test interpretation with radiology: I have reviewed the radiologist's reading. Discharge Plan Discharge Clinical Impression: Altered mental status, Rhabdomyolysis, Acute urinary retention Patient Disposition: Admitted As Inpatient
[2025-01-30 14:47] LABS: Anion Gap 22 (12-20); Blood Urea Nitrogen 33 mg/dL (9-16); Calcium 9.6 mg/dL (8.4-10.2); Carbon Dioxide 19 mmol/L (22-29); Chloride 95 mmol/L (96-108); Creatinine Clr Calc Pharmacy 46.5; Estimated Glomerular Filt Rate > 60; Ethanol < 10 mg/dL; Glucose Random 165 mg/dL (60-115); Potassium 4.8 mmol/L (3.3-5.1); Sodium 131 mmol/L (135-145)
[2025-01-30] MEDS: Lactated Ringers 1,000 ML 999 ML IV (15:09)
[2025-01-30] MEDS: cefTRIAXone sodium 1 GM VIAL IVPUSH (15:09)
[2025-01-30 15:17] LABS: Prothrombin Time 11.7 SEC (10.9-12.4)
[2025-01-30 15:18] LABS: Alanine Aminotransferase 79 U/L (0-40); Albumin Level 4.3 g/dL (3.5-5.0); Aspartate Amino Transferase 204 U/L (5-37); Bilirubin Direct 0.8 mg/dL (0.0-0.5); Lipase 28 U/L (8-78); Total Protein 7.9 g/dL (6.5-8.0)
[2025-01-30 15:22] LABS: Troponin-I High Sensitivity 17.4 ng/L (<3.5-35.0)
[2025-01-30 15:23] LABS: B Type Natriuretic Peptide 101 pg/mL (<100)
[2025-01-30 15:25] LABS: Lactic Acid 5.2 mmol/L (0.5-2.0)
[2025-01-30 15:40] LABS: Alkaline Phosphatase 121 U/L (39-117)
[2025-01-30 15:57] LABS: Glucose, Whole Blood 161 mg/dL (60-115)
[2025-01-30 16:57] LABS: Reflex Lactate? Lactic Acid Added
[2025-01-30 17:45] LABS: ~Lactic Acid-LAB USE ONLY 2.9 mmol/L (0.5-2.0)
[2025-01-30] MEDS: Lidocaine HCl 2 % Urojet 10 ML JEL.PF.APP TOPICAL (18:00)
[2025-01-30] MEDS: Nystatin Cream 15 GM TUBE 1 APPL TOPICAL (18:00)
--- OUTSIDE RECORDS SUMMARY | 2025-01-30 18:14 | XMS_ITS | Clinical Summary ---
Author Organization [address] Address [address] [place] [phone] Phone Care Team Providers Care Retail Project Merchandiser Name Role Phone Av Weathers Primary Care Provider [phone] Allergies No known active allergies Medications thiamine (VITAMIN B-1) 50 mg tablet Take 2 Tablet by mouth daily 4 Active aspirin (Vazalore) 81 mg capsule Take 81 mg by mouth daily. Active citalopram (CeleXA) 10 mg tablet TAKE 1 TABLET BY MOUTH EVERY DAY Active diclofenac (VOLTAREN) 1 % topical gel Apply 4 g topically 2 times daily. Active digoxin (LANOXIN) 125 mcg (0.125 mg) tablet Take 1 Tablet by mouth daily. Active furosemide (LASIX) 40 mg tablet TAKE 1 TABLET BY MOUTH EVERY DAY FOR 90 DAYS Active lisinopril (PRINIVIL,ZESTR IL) 40 mg tablet Take 1 Tablet by mouth daily. Active melatonin 3 mg capsule Take 1 Capsule by mouth every evening. Active amLODIPine (NORVASC) 5 mg tablet TAKE 1 TABLET BY MOUTH EVERY DAY 90 tablet 3 4 Active Additional Information Patient not taking.Reported on 01/16/2025 atorvastatin (LIPITOR) 40 mg tablet TAKE 1 TABLET BY MOUTH EVERY DAY 90 tablet 1 4 Active carvediloL (COREG) 25 mg tablet TAKE 1 TABLET BY MOUTH TWICE A DAY WITH MEALS 60 tablet 5 Active amLODIPine (NORVASC) 10 mg tablet TAKE 1 TABLET BY MOUTH EVERY DAY 90 tablet 1 5 Active APIXABAN ORAL Take 5 mg by mouth. 2 Active Active Problems Problem Noted Date Diagnosed Date Atrial fibrillation (CMS/[facility] V24, [facility] V28) 0 01/15/2022 Asymptomatic varicose veins of bilateral lower e xtremities 01/15/2022 STEMI (ST elevation myocardi al infarction) ([facility] [place], [facility] V28) 12/27/2021 Impaired fasting blood sugar 12/12/2020 Onychomycosis 07/14/2018 Anxiety and depression 01/06/2018 Right hydrocele 01/25/2016 Bunion 02/09/2014 Elevated PSA 02/09/2014 HTN (hypertension) 05/14/2012 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 Encounters Date Type Department Care Team Description 01/16/2025 8:30 AM EDT Office Visit Adult Medicine [address] [phone] Av Weathers PA Primary hypertension (Primary Dx); Elevated PSA; Anxiety and depression; Atrial fibrillation, unspecified type ([facility] V24, [facility] V28); ST elevation myocardial infarction (STEMI), unspecified artery ([facility] V24, [facility] V28); Abnormal level of blood mineral from Last 3 Months Immunizations Name Administration Dates Next Due Influenza Quadravalent, MDCK , 0.5ml, with preservative (Flucelvax) 6mo and older 06/23/2022,07/15/2019 Influenza trivalent, 0.5mL ( Fluad) 65yo and older 06/21/2024,07/16/2023,06/15/2020,07/14 Influenza trivalent, with pr eservative (Fluzone; Afluria) 6mo and older 08/01/2016,08/02/2015,06/15/2013 Influenza, Unspecified 07/15/2019 Pfizer (ages 12 & older) Biv alent, COVID-19 06/23/2022 Pneumococcal conjugate 13 va lent (Prevnar 13, PCV13) 2mo and older 08/02/2015 Pneumococcal polysaccharide 23 valent (Pneumovax 23) 2yo and older 12/09/2012 Td Tetanus diptheria (Tdvax) 7yo and older 10/20/2022 Tdap Tetanus diptheria acell ular pertussis (Boostrix; Adacel) 7yo and older 04/14/2012 Surgical History Surgery Date Site/Laterality Comments ANKLE SURGERY 03/05/2017 Left PROCEDURE: HISTORICAL ANKLE SURGERY CORONARY ARTERY BYPASS GRAFT 12/11/2021 PROCEDURE: HISTORICAL CABG; COMMENT: x4 dr. parham Medical History Medical History Date Comments HTN (hypertension) DX:HTN (hyper tension) Mild mental handicap 05/14/2012 DX:Mild men gerlado handicap Bunion 02/09/2014 DX:Bunion Elevated PSA 02/09/2014 DX:Elevated PSA Family History Medical History Relation Name Comments Glaucoma Father Stroke Father Blindness Neg Hx Cataracts Neg Hx Macular degeneration Neg Hx Strabismus Neg Hx Relation Name Status Comments Brother 1 (Age 30's) overdose Brother 2 Brother 3 Alive Brother 4 Alive Brother 5 Alive Father Alive cad Mother (Age 85) post op cabg, htn Sister 1 Alive Sister 2 Alive hjtn Sister 3 Alive htn Sister 4 Alive htn Sister 5 Alive htn Social History Tobacco Use Types Packs/Day Years Used Date Smoking Tobacco: Never Smokeless Tobacco: Never Tobacco Cessation:Counseling Given: Not Answered Alcohol Use Standard Drinks/Week Comments Yes 11.7 (1 standard drink = 0.6 oz pure alcohol) Housing Instability Answer Date Recorde d Are you worried that in the next 2 months you may not have stable housing? No 01/16/2025 Food Access & Nutrition Answer Date Rec orded Do you have access to a vari ety of food including fruits and vegetables? Yes 01/16/2025 Health Literacy Answer Date Recorded How often do you need to hav e someone help you when you read instructions, pamphlets, or other written material from your doctor or pharmacy? Never 01/16/2025 Caregiver: How often do you need to have someone help you when you read instructions, pamphlets, or other written material from your doctor or pharmacy? Not on file 01/16/2025 Financial Risk Answer Date Recorded How hard is it for you to pa y for the very basics like food, housing, medical care, and air conditioning / heating? Not very hard 01/16/2025 Transportation Answer Date Recorded Has the lack of transportati on kept you from meetings, work, or from getting things needed for daily living? No Has the lack of transportati on kept you from medical appointments or from getting medications? No 01/16/2025 Social Isolation Answer Date Recorded How often do you feel lonely or isolated from th ose around you? Never 01/16/2025 Food Risk Answer Date Recorded Within the past 12 months we worried whether our food would run out before we got money to buy more. Never true 01/16/2025 Within the past 12 months th e food we bought just didn't last and we didn't have money to get more. Never true 01/16/2025 Dependent Care Answer Date Recorded Do you need help finding or paying for care for your loved ones. For example, child and family therapist or elderly care for an older adult? No 01/16/2025 Education Answer Date Recorded Do you think completing more education or training, like finishing a GED, going to college, or learning a trade, would be helpful for you? No 01/16/2025 Employment and Income Answer Date Recor ded During the last four weeks, have you been actively looking for work? No 01/16/2025 Living Situation Answer Date Recorded What is your living situation? 0 01/16/2025 Sex and Gender Information Value Date Recorded Sex Assigned at Not on file Legal Sex Male 10:55 AM EST Gender Identity Not on file Sexual Orientation Not on file Obstetrics History Last Filed Vital Signs Vital Sign Reading Time Taken Comments Blood Pressure 115/60 01/16/2025 8:46 AM EDT Pulse 73 01/16/2025 8:46 AM EDT Temperature 35.8 ??C (96.5 ??F) 01/16/2025 8:46 AM ED T Respiratory Rate 15 01/16/2025 8:46 AM EDT Oxygen Saturation - - Inhaled Oxygen Concentration - - Weight 74.8 kg (165 lb) 01/16/2025 8:46 AM EDT Height 165.1 cm (5' 5 ) 01/16/2025 8:46 AM EDT Body Mass Index 27.46 01/16/2025 8:46 AM EDT Plan of Treatment Upcoming Encounters Date Type Department Care Team (Late st Contact Info) Description 07/19/2025 8:30 AM EDT Office Visit Adult Medicine [facility] [address] [place] [phone] Av Weathers PA [address] [place] [address] Health Maintenance Due Date Last Done Comments Zoster Vaccines (1 of 2) 1997 Colorectal Cancer Screening: Stool Based Tests (FOBT/FIT) 09/13/2022 Medicare Annual Wellness Visit 09/13/2022 COVID-19 Vaccine ( season) 2025 07/27/2024, 07/16/2023, 06/23/2022, Additional history exists Hypertension/CHF/CAD Annual BMP Blood Test 11/02/2025 11/02/2024, 07/13/2024, 07/13/2024 Depression Screening 01/16/2026 01/16/2025 Falls Risk Assessment 01/16/2026 01/16/2025 Social Influencers of Health Screening 01/16/2026 01/16/2025 Cholesterol Screening (Lipid Panel) 07/13/2029 07/13/2024, 07/13/2024 DTaP,Tdap,and Td Vaccines (3 - Td or Tdap) 10/20/2032 10/20/2022, 04/14/2012 Pneumococcal Vaccine: 50+ Years Completed 08/02/2015, 12/09/2012 Hepatitis C Screening Completed 11/06/2022 RSV Immunization Adult Patients Completed 08/13/2023 Influenza Vaccine Completed 06/21/2024, , 06/23/2022, Additional history exists HIB Vaccines Aged Out No longer eligi ble based on patient's age to complete this topic HPV Vaccines Aged Out No longer eligi ble based on patient's age to complete this topic Hepatitis A Vaccines Aged Out No long er eligible based on patient's age to complete this topic Hepatitis B Vaccines Aged Out No long er eligible based on patient's age to complete this topic IPV Vaccines Aged Out No longer eligi ble based on patient's age to complete this topic MMR Vaccines Aged Out No longer eligi ble based on patient's age to complete this topic Meningococcal ACWY Vaccine Aged Out N o longer eligible based on patient's age to complete this topic Meningococcal B Vaccine Aged Out No l onger eligible based on patient's age to complete this topic RSV Immunization Patients Under 20 months Aged Out No longer eligible based on patient's age to complete this topic Varicella Vaccines Aged Out No longer eligible based on patient's age to complete this topic Procedures Procedure Name Priority Date/Time Associated Diagnosis Comments CBC WITH AUTO DIFFERENTIAL Routine 11/02/2024 11:41 AM EST At low risk for coronary artery disease CBC AND DIFFERENTIAL Routine 11/02/2024 11:41 AM EST At low risk for coronary artery disease DIGOXIN LEVEL Routine 11/02/2024 11:41 AM EST At low risk for coronary artery disease COMPREHENSIVE METABOLIC PANEL Routine 11/02/2024 11:41 AM EST At low risk for coronary artery disease LIPID PANEL Routine 07/13/2024 HM HEPATITIS C SCREENING Routine 11/06/2022 from Last 3 Months or Most Recently Relevant to Health Maintenance Results * (ABNORMAL) CBC auto differential (11/02/2024 11:41 AM EST) WBC 8.1 4.8 - 10.8 K/mcL LAB HEMETOLOGY METHOD 11/02/2024 2:01 PM [facility] RBC 5.20 4.50 - 5.50 M/mcL LAB HEMETOLOGY METHOD 11/02/2024 2:01 PM [facility] Hemoglobin 17.3 13.5 - 17.5 g/dL LAB HEMETOLOGY METHOD 11/02/2024 2:01 PM [facility] Hematocrit 51.1 42.0 - 54.0 % LAB HEMETOLOGY METHOD 11/02/2024 2:01 PM [facility] MCV 98.3(H) 79.0 - 98.0 FL LAB HEMETOLOGY METHOD 11/02/2024 2:01 PM [facility] MCH 33.3(H) 27.0 - 32.0 pcg LAB HEMETOLOGY METHOD 11/02/2024 2:01 PM [facility] MCHC 33.9 32.0 - 37.0 g/dL LAB HEMETOLOGY METHOD 11/02/2024 2:01 PM [facility] RDW 12.9 11.0 - 15.0 % LAB HEMETOLOGY METHOD 11/02/2024 2:01 PM [facility] Platelets 306 130 - 400 K/mcL LAB HEMETOLOGY METHOD 11/02/2024 2:01 PM [facility] MPV 10.4 7.0 - 11.0 FL LAB HEMETOLOGY METHOD 11/02/2024 2:01 PM [facility] NRBC 0.0 <1.0 % LAB HEMETOLOGY METHOD 11/02/2024 2:01 PM [facility] NRBC Absolute 0.00 <0.10 K/mcL LAB HEMETOLOGY METHOD 11/02/2024 2:01 PM [facility] Neutrophils Relative 66.9 % LAB HEMETOLOGY METHOD 11/02/2024 2:01 PM [facility] Lymphocytes Relative 23.2 % LAB HEMETOLOGY METHOD 11/02/2024 2:01 PM [facility] Monocytes Relative 7.2 % LAB HEMETOLOGY METHOD 11/02/2024 2:01 PM [facility] Eosinophils Relative 1.6 % LAB HEMETOLOGY METHOD 11/02/2024 2:01 PM [facility] Basophils Relative 0.7 % LAB HEMETOLOGY METHOD 11/02/2024 2:01 PM [facility] Immature Granulocytes Relative 0.4 % LAB HEMETOLOGY METHOD 11/02/2024 2:01 PM [facility] Neutrophils Absolute 5.43 1.50 - 7.00 K/mcL LAB HEMETOLOGY METHOD 11/02/2024 2:01 PM [facility] Lymphocytes Absolute 1.88 1.00 - 5.00 K/mcL LAB HEMETOLOGY METHOD 11/02/2024 2:01 PM EST [facility] Monocytes Absolute 0.58 0.20 - 1.00 K/mcL LAB HEMETOLOGY METHOD 11/02/2024 2:01 PM [facility] Eosinophils Absolute 0.13 0.00 - 0.50 K/mcL LAB HEMETOLOGY METHOD 11/02/2024 2:01 PM EST [facility] Basophils Absolute 0.06 0.00 - 0.20 K/[facility] LAB HEMETOLOGY METHOD 11/02/2024 2:01 PM [facility] Immature Granulocytes Absolute 0.03 0.00 - 0.03 K/[facility] LAB HEMETOLOGY METHOD 11/02/2024 2:01 PM [facility] Blood Venous blood specimen / Unknown Venipuncture / Unknown 11/02/2024 11:41 AM EST 11/02/2024 11:41 AM EST us Alfredo Lindsay MD LAB BLOOD ORDERABLES Final Resul t [facility] [address] [place] [address], [place] [phone] * (ABNORMAL) Digoxin level (11/02/2024 11:41 AM EST) Digoxin Lvl 0.2(L) 0.5 - 2.0 ng/mL LAB CHEMISTRY METHOD 11/02/2024 2:59 PM EST [facility] Blood Venous blood specimen / Unknown Venipuncture / Unknown 11/02/2024 11:41 AM EST 11/02/2024 11:41 AM EST us Alfredo Lindsay MD LAB BLOOD ORDERABLES Final Resul t [facility] [address] [place] [address], [place] [phone] * (ABNORMAL) Comprehensive metabolic panel (11/02/2024 11:41 AM EST) Sodium 134 133 - 145 mmol/L LAB CHEMISTRY METHOD 11/02/2024 2:59 PM [facility] Potassium 4.7 3.5 - 5.5 mmol/L LAB CHEMISTRY METHOD 11/02/2024 2:59 PM [facility] Chloride 100 96 - 110 mmol/L LAB CHEMISTRY METHOD 11/02/2024 2:59 PM [facility] CO2 27 21 - 32 mmol/L LAB CHEMISTRY METHOD 11/02/2024 2:59 PM [facility] Anion Gap 7 3 - 11 LAB CHEMISTRY METHOD 11/02/2024 2:59 PM [facility] Glucose 161(H) 70 - 100 mg/dL LAB CHEMISTRY METHOD 11/02/2024 2:59 PM [facility] BUN 9 5 - 25 mg/dL LAB CHEMISTRY METHOD 11/02/2024 2:59 PM [facility] Creatinine 0.94 0.70 - 1.30 mg/dL LAB CHEMISTRY METHOD 11/02/2024 2:59 PM [facility] eGFR 83 >=60 mL/min/1. 73m2 LAB CHEMISTRY METHOD 11/02/2024 2:59 PM [facility] Comment:Calculation based on the??Chronic Kidney Disease Epidemiology Collaboration (CKD-EPI) equation refit??without adjustment for race. BUN/Creatinine Ratio 9.6 LAB CHEMISTRY METHOD 11/02/2024 2:59 PM [facility] Calcium 10.1 8.5 - 10.5 mg/dL LAB CHEMISTRY METHOD 11/02/2024 2:59 PM [facility] AST (SGOT) 38 10 - 42 unit/L LAB CHEMISTRY METHOD 11/02/2024 2:59 PM [facility] ALT (SGPT) 39 10 - 60 unit/L LAB CHEMISTRY METHOD 11/02/2024 2:59 PM EST [facility] Alkaline Phosphatase 98 42 - 121 unit/L LAB CHEMISTRY METHOD 11/02/2024 2:59 PM EST [facility] Total Protein 7.9 6.0 - 8.0 g/dL LAB CHEMISTRY METHOD 11/02/2024 2:59 PM EST [facility] Albumin 4.3 3.2 - 5.0 g/dL LAB CHEMISTRY METHOD 11/02/2024 2:59 PM [facility] Total Bilirubin 1.6(H) 0.0 - 1.4 mg/dL LAB CHEMISTRY METHOD 11/02/2024 2:59 PM [facility] Blood Venous blood specimen / Unknown Venipuncture / Unknown 11/02/2024 11:41 AM EST 11/02/2024 11:41 AM EST Alfredo Lindsay MD LAB BLOOD ORDERABLES Final Resul t [facility] [address] [place] [address], * (ABNORMAL) Lipid panel (07/13/2024) [facility] LDL/HDL Ratio 2 0 - 4 Triglycerides 98 0 - 150 mg/dL Cholesterol 202(A) 0 - 200 mg/dL HDL 87 >=40 mg/dL LDL Cholesterol 96 0 - 100 mg/dL Blood Venous blood specimen / Unknown Chas Baig MD LAB BLOOD ORDERABLES Bobbi l Result * Hepatitis C Screening (11/06/2022) [facility] Hepatitis C Screening abstracted Chas Baig MD HEALTH MAINTENANCE Final Result from Last 3 Months or Most Recently Relevant to Health Maintenance Insurance [place]ICAID - [place] [facility] [place] [employer] Care Teams Retail Project Merchandiser Relationship Specialty Start Date End Date Av Weathers PA [address] [place] [address] PCP - General Internal Medicine 12/12/20
--- NOTE | 2025-01-30 18:25 | PC.NURSE ---
16 Croatian lopez catheter inserted by this RN. Urojet given prior to procedure. Patient tolerated it well. Nystatin cream also applied to groin & intergluteal crease. Excoriated red skin breakdown noted. Provider (Dr. Petty) aware & evaluated these areas of concern. Patient was tearful during cream application, reporting pain. Pain calmed within 10 minutes of application. Small amount of urine incontinence noted just prior to lopez insertion. Linens & [facility] gown changed. Hygiene care provided.
[2025-01-30 18:26] LABS: Appearance Urine Clear; Color Urine Dark Yellow; Glucose Urine UA Negative (Negative); Leukocyte Esterase Urine Negative (Negative); Nitrite Urine Negative (Negative); PH 5.5 (5.0-9.0); Specific Gravity - Urine 1.015 (1.005-1.025); UMIC TRIGGER UACC YES; Urine Blood Large (3+) (Negative); Urine Ketones Trace mg/dL (Negative); Urine Protein 100 (2+) mg/dL (Neg-Trace)
[2025-01-30 19:09] LABS: Bacteria Urine None Seen (None Seen); Squamous Epithelial Cell Urine 0-2 /HPF (0-2); WBC Urine 0-5 /HPF (0-5)
[2025-01-30 19:27] LABS: Reflex Lactate? 2 Y
--- NOTE | 2025-01-30 19:31 | P.HPHOSP_ITS ---
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 Patient is poor historian current currently, noting withdrawal from alcohol but states that he did fall and then fell asleep on the floor and was unable to get back up. Pt does not wear lifeline device and did not have cell phone close by. There was incontinence at the scene with a strong odor of urine. Patient has no memory of events prior to falling. Patient states he normally drinks anywhere from 3-4 beers per day for over 30 years. Per report, sister had removed the alcohol approximately 2-3 days prior. Patient states he was feeling suicidal approximately 2 weeks ago and today he is not feeling suicidal. Patient denies seizures associated with alcohol withdrawal. Patient did have a seizure at age 12 but no further seizure activity. Pt is not sure why the seizure occurred. Pt does not currently drive. CT head notes parieto-occipital subgaleal scalp fluid collection, likely evolving hematoma. Not appreciated on exam, will hold eliquis. Reviewed with attending Dr Berry, superficial and will reduce. No need for neuro consult. Neuro exam reassuring overall. Patient currently in AFib rate 100 with obvious hx based on med rec. Patient likely did not take his usual meds over the last 48 hours. Pt currently denies chest pain, SOB at rest or abdomonal/ groin pain. Incidentally, CT of the abdomen and pelvis notes mild bilateral hydro ureteronephrosis and bilateral hydroceles with no soft tissue gas and an enlarged prostate 4.5 cm with mild intravesicular extension. Patient does have remarkable scrotal edema bilaterally and patient states he believes that edema has been there for some time. Lopez was placed in ED due to urinary retention issues. Urine culture pending. Blood cultures pending. LA 5, then 2.9. Pt afebrile. Patient started on ceftriaxone in the emergency department. CXR negative for opacity, consolidation, pulmionary edema or pleural [id number]. Total creatinine kinase 3245. Patient has received at least 2 L of LR and will continue on hourly infusion. No evidence of visual myoglobin seen in Lopez catheter bag. No obvious bruising or hematoma on torso or legs. Patient will start the phenobarb protocol for CIWA. Thiamine and folic acid added. Urology consulted for above findings. <[facility] - Last Filed: 01/30/25 20:27> Review of Systems 2 Review of Systems: Patient currently denies chest pain, shortness of breath at rest, headache, abdominal pain, nausea, vomiting, diarrhea and lower leg pain. Patient denies any back pain. Patient believes his scrotal edema has been there for some time. <Marisol AMAN MotaENCOM[facility] - Last Filed: 01/30/25 20:27> Yes all other systems are reviewed and are negative <[facility] - Last Filed: 01/30/25 20:27> PENDING SALE TO [facility] Medical History: Medical History (Updated 01/30/25 @ 20:03 by MARK Castillo) Hepatic steatosis Cerumen impaction Cervical spondylosis CVA (cerebral vascular accident) ETOH abuse Afib <[place] Svetlana [facility] - Last Filed: 01/30/25 20:27> Cognitive capacity: Alert and orientated to self and location but not time <[place] Svetlana [facility] - Last Filed: 01/30/25 20:27> Functional capacity: independent ambulation (normally ) <[place] Svetlana [facility] - Last Filed: 01/30/25 20:27> Pertinent family history: Patient unable to provide <[place] Svetlana [facility] - Last Filed: 01/30/25 20:27> Surgical History: Surgical History (Updated 01/30/25 @ 19:55 by Marisol Mota [facility]) History of ankle surgery Hx of CABG <[facility] - Last Filed: 01/30/25 20:27> Social History: Social History Alcohol intake: current Alcohol intake frequency: 3 or more drinks per day Advance Directives: Yes Advance Directives on File: Yes Advance Directives Date on File: 06/13/24 <Marisol Mota [facility] - Last Filed: 01/30/25 20:27> Ebola Risk: Travel/Contact With Anyone From Affected Area/s: No <[place] Svetlana [facility] - Last Filed: 01/30/25 20:27> Has Patient Experienced Ebola Symptoms: No <Marisol Mota [facility] - Last Filed: 01/30/25 20:27> Meds Allergies/Adverse reactions: Allergies Allergy/AdvReac Type Severity Reaction Status Date / Time No Known Allergies Allergy Verified 01/30/25 13:49 <Marisol Mota [facility] - Last Filed: 01/30/25 20:27> Active Medications: Current Medications Acetaminophen (Acetaminophen 325 Mg Tablet) 650 mg PO Q6H PRN PRN Reason: Pain, Mild 1-3,fever,headache Albuterol/Ipratropium (Albuterol/Iprat 2.5/0.5mg 3 Ml Ampul.Neb) 3 ml INHALE Q4H PRN PRN Reason: Shortness of Breath/Wheezing Calcium Carbonate (Calcium Carbonate 750 Mg Tab.Chew) 750 mg PO Q4H PRN PRN Reason: Heartburn Ceftriaxone Sodium (Ceftriaxone Sodium 1 Gm Vial) 1 gm IVPUSH Q24H RUSH Folic Acid (Folic Acid 1 Mg Tablet) 1 mg PO DAILY RUSH Lactated Ringer's (Lr) 1,000 mls @ 125 mls/hr IVCONT .Q8H RUSH Lactated Ringer's (Lr) 1,000 mls @ 1,000 mls/hr IVCONT .Q1H RUSH Magnesium Hydroxide (Milk Of Magnesia 30 Ml Oral.Susp) 30 ml PO DAILY PRN PRN Reason: Constipation Melatonin (Melatonin 3 Mg Tablet) 6 mg PO BEDTIME PRN PRN Reason: Insomnia Ondansetron HCl (Ondansetron Hcl 4 Mg/2 Ml Vial) 4 mg IVPUSH Q8H PRN PRN Reason: Nausea and Vomiting Pharmacy Consult (Consult Rx Etoh Phenob Po Only) 1 each MISCELLANE ONCE PRN; Protocol PRN Reason: Consult order Senna (Sennosides 8.6 Mg Tablet) 17.2 mg PO BEDTIME RUSH Sodium Chloride (0.9 % Sodium Chloride Flush 3 Ml Syringe) 3 ml IVFLUSH QSHIFT RUSH Thiamine HCl (Thiamine Hcl 100 Mg Tablet) 100 mg PO DAILY RUSH <Marisol Mota [facility] - Last Filed: 01/30/25 20:27> Home medications: Home Medications ?Medication ?Instructions ?Recorded ?Confirmed ?Last Taken ?Type amlodipine 5 mg tablet 5 mg PO DAILY 01/30/25 Unknown History apixaban 5 mg tablet (Eliquis) 5 mg PO BID 01/30/25 Unknown History atorvastatin 40 mg tablet 40 mg PO DAILY 01/30/25 Unknown History carvedilol 12.5 mg tablet 12.5 mg PO BID 01/30/25 Unknown History citalopram 10 mg tablet 10 mg PO DAILY 01/30/25 Unknown History digoxin 125 mcg (0.125 mg) tablet 125 mcg PO DAILY 01/30/25 Unknown History furosemide 40 mg tablet 40 mg PO DAILY 01/30/25 Unknown History lisinopril 40 mg tablet 40 mg PO DAILY 01/30/25 Unknown History <[place] Svetlana [facility] - Last Filed: 01/30/25 20:27> Physical Exam 2 Vital Signs and Narrative: Vital Signs: Last Vital Signs Temp 98.2 F 01/30/25 18:18 Pulse 99 01/30/25 18:18 Resp 24 H 01/30/25 18:18 BP 139/82 01/30/25 18:18 Pulse Ox 96 01/30/25 18:18 O2 Del Method Room Air 01/30/25 18:18 BMI result Body Mass Index 33.5 <[place] Svetlana [facility] - Last Filed: 01/30/25 20:27> Alert and orientated X2, not time, fair historian due to ETOH withdrawal Neuro: CN II-X11 intact, no deficits, visual acuity intact EYES: PERRLA, EOM intact HEENT: hearing intact, no issues with swallowing, uvula midline, lips dry, nares patent no epistaxis, some teeth missing, head atraumatic Cardiac: S1 S2 irregular rate 100, II/XI systolic murmur, no JVD, no edema in Lower ext Pulmonary: lungs diminished B Abdominal: BS active in all 4 quadrants, no guarding, tenderness, rebounding, noted distension but soft, no hepatomegaly MSK: strength 5/5 upper and lower extremities : no CVA tenderness lopez in place, urine dark yellow Extremities: no edema in lower extremities, PT and DP pulses palpable +2 Psych: mood sad, judgement and insight poor pt denies SI at this time, has felt suidical about 2-3 weeks ago Skin: no obvious bruising or hematoma, no open wounds found, unable to check backside <[facility] - Last Filed: 01/30/25 20:27> Results Labs CBC and Chem 7: 01/30/25 14:14 01/30/25 14:14 <[facility] - Last Filed: 01/30/25 20:27> Labs: Laboratory Results - last 24 hr 01/30/25 01/30/25 01/30/25 14:14 14:29 14:54 MCV 93.6 MCH 33.4 H MCHC 35.7 RDW 13.1 Plt Count 297 MPV 9.6 Immature Gran % (Auto) 0.9 H Neut % (Auto) 89.5 H Lymph % (Auto) 3.1 L [place] % (Auto) 6.3 Eos % (Auto) 0.1 Baso % (Auto) 0.1 Lymph # (Auto) 0.7 L [place] # (Auto) 1.4 H Eos # (Auto) 0.0 Baso # (Auto) 0.0 Abs Immat Gran (auto) 0.20 H Absolute Neuts (auto) 19.6 H Absolute Nucleated RBC 0.000 Nucleated RBC % (auto) 0.0 PT 11.7 INR 1.0 Anion Gap 22 H Estim Creat Clear Calc 46.5 Estimated GFR > 60 POC Glucose 178 H Random Glucose 165 H Lactic Acid 5.2 H* Lactic Acid F/U @ 2Hr Calcium 9.6 Total Bilirubin 2.0 H Direct Bilirubin 0.8 H AST 204 H ALT 79 H Alkaline Phosphatase 121 H Total Creatine Kinase 3245 H B-Natriuretic Peptide 101 H Total Protein 7.9 Albumin 4.3 Lipase 28 Urine Color Urine Appearance Urine pH Ur Specific [place] Urine Protein Urine Glucose (UA) Urine Ketones Urine Blood Urine Nitrite Ur Leukocyte Esterase Urine RBC Urine WBC Ur Squamous Epith Cells Urine Bacteria Hyaline Casts Ethyl Alcohol < 10 01/30/25 01/30/25 01/30/25 15:52 17:23 18:19 MCV MCH MCHC RDW Plt Count MPV Immature Gran % (Auto) Neut % (Auto) Lymph % (Auto) [place] % (Auto) Eos % (Auto) Baso % (Auto) Lymph # (Auto) [place] # (Auto) Eos # (Auto) Baso # (Auto) Abs Immat Gran (auto) Absolute Neuts (auto) Absolute Nucleated RBC Nucleated RBC % (auto) PT INR Anion Gap Estim Creat Clear Calc Estimated GFR POC Glucose 161 H Random Glucose Lactic Acid Lactic Acid F/U @ 2Hr 2.9 H* Calcium Total Bilirubin Direct Bilirubin AST ALT Alkaline Phosphatase Total Creatine Kinase B-Natriuretic Peptide Total Protein Albumin Lipase Urine Color Dark Yellow Urine Appearance Clear Urine pH 5.5 Ur Specific [place] 1.015 Urine Protein 100 (2+) H Urine Glucose (UA) Negative Urine Ketones Trace Urine Blood Large (3+) H Urine Nitrite Negative Ur Leukocyte Esterase Negative Urine RBC 11-20 H Urine WBC 0-5 Ur Squamous Epith Cells 0-2 Urine Bacteria None Seen Hyaline Casts 3-5 Ethyl Alcohol <[facility] - Last Filed: 01/30/25 20:27> ECG Attestation: I personally reviewed and interpreted this ECG as follows: (AFIB rate 100 ) <[facility] - Last Filed: 01/30/25 20:27> Prior ECG tracings: available for review <[facility] - Last Filed: 01/30/25 20:27> Imaging Radiologist's Impressions: Impressions Ankle X-Ray 01/30/25 14:53 IMPRESSION: Degenerative changes without acute fracture or dislocation. Status post open reduction internal fixation of prior ankle fracture. Atherosclerosis disease, peripheral. Electronically signed by: Arias Hagen MD 01/30/2025 03:34 PM EDT Ankle X-Ray 01/30/25 14:53 IMPRESSION: No acute fracture or dislocation. Atherosclerosis disease, peripheral. Degenerative changes. Electronically signed by: Arias Hagen MD 01/30/2025 03:30 PM EDT RP Cervical Spine CT 01/30/25 14:53 IMPRESSION: 1. No CT evidence of acute cervical spine fracture or injury. 2. Extensive degenerative spondylosis of the cervical spine. 3. Ancillary findings as discussed. Electronically signed by: Fausto Rogers MD 01/30/2025 04:04 PM EDT RP Foot X-Ray 01/30/25 14:53 IMPRESSION: Severe degenerative changes seen involving the first metatarsophalangeal joint. No acute fracture or dislocation. Atherosclerosis disease, peripheral. Electronically signed by: Arias Hagen MD 01/30/2025 03:33 PM EDT RP Head CT 01/30/25 15:37 IMPRESSION: 1. No acute intracranial abnormality. 2. Moderate to severe small vessel ischemic changes, and numerous old lacunar type infarctions in the right cerebellum and bilateral gangliocapsular regions. 3. There is a parieto-occipital subgaleal scalp fluid collection, likely evolving hematoma. 4. Cerumen impaction in both EACs. Electronically signed by: Fausto Rogers MD 01/30/2025 03:51 PM EDT RP Chest X-Ray 01/30/25 15:55 IMPRESSION: No acute airspace disease. Acute intra-abdominal process cannot be excluded. Electronically signed by: Arias Hagen MD 01/30/2025 04:19 PM EDT RP <[place] Svetlana [facility] - Last Filed: 01/30/25 20:27> Assessment and Plan (1) Rhabdomyolysis: Qualifiers: Encounter type: initial encounter Rhabdomyolysis type: t raumatic Qualified Code(s): T79.6XXA - Traumatic ischemia of muscle, initial encounter <[place] Svetlana [facility] - Last Filed: 01/30/25 20:27> Status: Acute <[facility] - Last Filed: 01/30/25 20:27> Patient is a 79-year-old male with past medical history of CAD, CVA, CABG x4, atrial fibrillation on Eliquis, childhood seizure, hypertension, depression, hyperlipidemia and alcohol abuse presents to the emergency room status post fall, down for approximately 2 day with evidence of rhabdomyolysis, UTI/leukoxytosis/ lactic acidosis, ETOH withdrawal, bilateral hydroceles with scrotal edema, parietal-occipital hematoma superficial and is being admitted. Rhabdomyolysis status post fall/ parietal-Occipital hematoma -Patient received 2 L of LR, trend CK -Continue IV fluids at 125 per hour -Fall prevention UTI suspected/ Urinary retention/ Bilateral hydroceles with scrotal edema/ enlarged prostate with intravesicular extension -UA with reflex negative for nitrites, leukocytes esterase, WBCs and bacteria. -Lactic acid started on at 5, , then 2.9 and is currently 1.9. Leukocytosis of 21.9. Heart rate 100. Patient afebrile. Blood cultures pending. Low threshold to qualify this has sepsis. -Ceftriaxone started in the ED, we will continue empirically. No evidence of pulmonary infection. -Hydration provided -Lopez placed -Urology consulted -PSA ordered ETOH withdrawal/ Transaminitis/ history of hepatic steatosis -ETOH <10 open beer container found at the scene -Patient is started on phenobarbital protocol, CIWA, thiamine and folic acid. No adult history of seizure. Patient reports having a seizure at age 12 but does not recall why seizure occurred. -NPO until further awake, bedside nursing swallow evaluation prior to ordering diet. Aspiration precautions -Avoid hepatotoxic medications -CMP in the a.m., we will check hepatitis profile Atrial fibrillation/ systolic murmur/ hypertension/ hyperlipidemia -Chronic atrial fib noted, rate 100. Patient likely did not have any medication for the last 2 days -We will check dig level -Telemetry -Await completion of med rec and continue Coreg, digoxin if level is stable. Holding Eliquis due to hematoma found on CT of the head, considered superficial, monitoring overnight -BNP was normal -Echo ordered, no recent echo found in patient's chart -Cardiology consult if indicated -Holding statin due to elevated total CK levels -Resume when stable -Blood pressure currently stable, may consider resuming amlodipine in the a.m. if med rec is completed -holding lisinopril, Lasix as we are monitoring renal function secondary to rhabdo Depression -Continue citalopram once med rec completed -Patient is not currently suicidal, was feeling suicidal 2-3 weeks ago -Psychiatric consult if needed DVT prophylaxis: eliquis held due to hematoma on scalp PPI: ordered <AMAN Castillo- - Last Filed: 01/30/25 20:27> Patient is a 79-year-old male with past medical history of CAD, CVA, CABG x4, atrial fibrillation on Eliquis, childhood seizure, hypertension, depression, hyperlipidemia and alcohol abuse presents to the emergency room status post fall, down for approximately 2 day with evidence of rhabdomyolysis, UTI/leukoxytosis/ lactic acidosis, ETOH withdrawal, bilateral hydroceles with scrotal edema, parietal-occipital hematoma superficial and is being admitted. Rhabdomyolysis status post fall/ parietal-Occipital hematoma -Patient received 2 L of LR, trend CK -Continue IV fluids at 125 per hour -Fall prevention UTI suspected/ Urinary retention/ Bilateral hydroceles with scrotal edema/ enlarged prostate with intravesicular extension -UA with reflex negative for nitrites, leukocytes esterase, WBCs and bacteria. -Lactic acid started on at 5, , then 2.9 and is currently 1.9. Leukocytosis of 21.9. Heart rate 100. Patient afebrile. Blood cultures pending. Low threshold to qualify this has sepsis. -Ceftriaxone started in the ED, we will continue empirically. No evidence of pulmonary infection. -Hydration provided -Lopez placed -Urology consulted -PSA ordered ETOH withdrawal/ Transaminitis/ history of hepatic steatosis -ETOH <10 open beer container found at the scene -Patient is started on phenobarbital protocol, CIWA, thiamine and folic acid. No adult history of seizure. Patient reports having a seizure at age 12 but does not recall why seizure occurred. -NPO until further awake, bedside nursing swallow evaluation prior to ordering diet. Aspiration precautions -Avoid hepatotoxic medications -CMP in the a.m., we will check hepatitis profile Atrial fibrillation/ systolic murmur/ hypertension/ hyperlipidemia -Chronic atrial fib noted, rate 100. Patient likely did not have any medication for the last 2 days -We will check dig level -Telemetry -Await completion of med rec and continue Coreg, digoxin if level is stable. Holding Eliquis due to hematoma found on CT of the head, considered superficial, monitoring overnight -BNP was normal -Echo ordered, no recent echo found in patient's chart -Cardiology consult if indicated -Holding statin due to elevated total CK levels -Resume when stable -Blood pressure currently stable, may consider resuming amlodipine in the a.m. if med rec is completed -holding lisinopril, Lasix as we are monitoring renal function secondary to rhabdo Depression -Continue citalopram once med rec completed -Patient is not currently suicidal, was feeling suicidal 2-3 weeks ago -Psychiatric consult if needed DVT prophylaxis: eliquis held due to hematoma on scalp PPI: ordered Admit as inpatient for alcohol withdrawal, IV abx <Stanley Berry MD - Last Filed: 01/30/25 20:50> Quality Stroke Does the patient have a stroke diagnosis?: No <[place] Svetlana, [facility] - Last Filed: 01/30/25 20:27> VTE Prior VTE?: No <Marisol Svetlana, [facility] - Last Filed: 01/30/25 20:27> VTE Risk Level:: Medical - moderate - high <[place] Svetlana, [facility] - Last Filed: 01/30/25 20:27> VTE Device Contraindication: N/A - Device Ordered <[place] Svetlana, [facility] [facility] - Last Filed: 01/30/25 20:27> VTE Drug Contraindication: N/A - Med Ordered <[place] Svetlana, [employer] - Last Filed: 01/30/25 20:27>
[2025-01-30 20:14] LABS: ~Lactic Acid-LAB USE ONLY 1.9 mmol/L (0.5-2.0)
[2025-01-30] MEDS: Lactated Ringers 1,000 ML 125 ML IVCONT (20:44)
[2025-01-30] MEDS: PHENobarbitaL sodium 130 MG/ML IM ONCE 200 MG IM (20:44)
[2025-01-30 20:46] LABS: Magnesium 2.3 mg/dL (1.6-2.6); Phosphorus 3.7 mg/dL (2.7-4.5)
[2025-01-30 21:04] LABS: Erythrocyte Sedimentation Rate 14 MM/HR (0-15)
[2025-01-30 21:08] LABS: Free T4 (Free Thyroxine) 1.46 ng/dL (0.71-1.85); Thyroid Stimulating Hormone 1.26 uIU/mL (0.32-4.0)
[2025-01-30 21:23] LABS: C Reactive Protein 6.63 mg/dL (< or = 0.50)
--- NOTE | 2025-01-30 21:29 | PHA.MEDREC ---
Pharmacy Consult ? Medication Reconciliation Pharmacy has completed the medication reconciliation. Spoke with patients sister, Nae, over the phone and she was able to confirm the patients medications. She confirmed the patient was taking the Amlodipine 10mg tab once daily still and did not know anything about the patient decreasing to Amlodipine 5mg tabs once daily.
--- NOTE | 2025-01-30 21:34 | PHA.MEDREC ---
Addendum entered by Shirley Shahid RPh 01/30/25 22:03: reviewed by [facility]. Original Note: Pharmacy Consult ? Medication Reconciliation Pharmacy has completed the medication reconciliation. Spoke with patients sister, Nae, over the phone and she was able to confirm the patients medications. She confirmed the patient was taking the Amlodipine 10mg tab once daily still and did not know anything about the patient decreasing to Amlodipine 5mg tabs once daily. Per patient sister, patient has not taken his medications since Thursday according to the med box patient has at home that the sister fills.
[2025-01-30 21:37] LABS: Digoxin 0.2 ng/mL (0.8-2.0); Lactic Acid 1.5 mmol/L (0.5-2.0)
[2025-01-31] VITALS (7 sets, daily range): BP systolic 124–158; BP diastolic 60–81; PULSE 56–94; RESP 16–20; TEMP 36.6–37.4; O2SAT 91–97; BMI 33.5
[2025-01-31] MEDS: PHENobarbitaL sodium 130 MG/ML VIAL IM Q3Hx2 150 MG IM ×2 (00:13→04:27)
--- NOTE | 2025-01-31 01:28 | HO.SKINPHOTO ---
Location: Category: Stage: Length: Width: Depth: cm Location: Category: Stage: Length: Width: Depth: cm Location: Category: Stage: Length: Width: Depth: cm Location: Category: Stage: Length: Width: Depth: cm Location: Category: Stage: Length: Width: Depth: cm Location: Category: Stage: Length: Width: Depth: cm
[2025-01-31] MEDS: 0.9 % Sodium Chloride Flush 3 ML SYRINGE IVFLUSH ×2 (04:26→14:18)
[2025-01-31] MEDS: Lactated Ringers 1,000 ML 125 ML IVCONT ×3 (04:27→23:19)
[2025-01-31] MEDS: Pantoprazole Sodium 40 MG/10 ML VIAL IVPUSH (06:42)
--- NOTE | 2025-01-31 07:00 | CA_ITS ---
Transthoracic Echocardiogram Patient (Last, First, Middle): González Lovett, Gender: Male Date of : 1945 Age: 79 Procedure Date: 01/31/2025 Procedure Type: Transthoracic Echocardiogram Location: [facility] [place] Height: 152.4 cm Weight: 77.57 kg BSA: 1.75 m2 Heart Rate: bpm BP: 133 / 69 mmHg [employer] Helper: CLAUDIA Symptoms: murmur Study Quality: Adequate w contrast ECG Rhythm: Atrial Fibrillation Conclusions: - Normal left ventricular cavity size. There is normal left ventricular wall thickness. The left ventricular systolic function is low normal. The visually estimated ejection fraction is between 50-55%. - Mildly increased right ventricular cavity size. There is mildly decreased right ventricular systolic function. - The left atrium is moderately dilated. The right atrium is moderately dilated. - There is mild dilatation of the ascending aorta measuring 4.00 cm. Findings Procedure Information Contrast agent, definity, is being given per protocol without apparent complications. Left Ventricle Normal left ventricular cavity size. There is normal left ventricular wall thickness. The left ventricular systolic function is low normal. The visually estimated ejection fraction is between 50-55%. There is no evidence of regional wall motion abnormalities. Diastolic function is indeterminate on the basis of available data. Right Ventricle Mildly increased right ventricular cavity size. There is mildly decreased right ventricular systolic function. Atria The left atrium is moderately dilated. The right atrium is moderately dilated. Aortic Valve There is a normal trileaflet aortic valve. There is mild calcification of the aortic valve. There is no aortic valve stenosis. There is no aortic valve regurgitation. Mitral Valve The mitral valve appears normal. There is trace mitral valve regurgitation. There is no mitral valve stenosis. Pulmonic Valve The pulmonic valve is normal. There is trace pulmonic valve regurgitation. Tricuspid Valve Normal tricuspid valve structure. There is no tricuspid valve regurgitation. Great Vessels There is mild dilatation of the ascending aorta measuring 4.00 cm. Venous The inferior vena cava is dilated and collapses greater than 50% with inspiration. Pericardium/Pleural There is no evidence of pericardial effusion. Prior Study Comparison No prior study available for comparison. Measurements 2D Linear Measurements IVSd: 1.00 0.6-0.9/0.6-1.0 cm LVIDd: 4.33 3.9-5.3/4.2-5.9 cm LVIDd Index: 2.47 2.4-3.2/2.2-3.1 cm/m2 LVIDs: 3.13 2.0-3.6 cm LVPWd: 1.12 0.7-1.1 cm LA Diam: 4.30 2.7-3.8/3.0-4.0 cm LAIDs Index: 2.46 1.5-2.3 cm/m2 LV Mass: 194.25 67-162/88-224 g LV Mass Index: 111.00 43-95/49-115 g/m2 LVOT Diam: 2.20 3.0+(-)1.3 cm 2D Systolic Function EF 4C: 42.30 >55% EF 2C: 49.30 >55% EF BiP: 45.80 >55% Mitral Valve MV Pk E: 1.08 MV Decel Time: 189.00 E'Lateral: 7.54 E'Medial: 6.20 E/E' Med: 17.40 E/E' Lat: 14.30 PHT: 55.00 MVA PHT: 4.00 Decel Hartley: 5.79 Aortic Valve AoV Pk Francisco: 1.66 AoV Mn Francisco: 1.17 AoV VTI: 0.32 AoV Pk Grad: 11.00 Aov Mn Grad: 6.00 JOSE Cont.VTI: 2.02 LVOT LVOT Pk [place]: 0.88 LVOT Mn [place]: 0.61 LVOT VTI: 0.17 LVOT Pk Grad: 3.00 LVOT Mn Grad: 2.00 LVOT Diam: 2.20 LVOT Area: 3.80 Diastolic Function MV Pk E: 1.08 E'Medial: 6.20 E/E' Med: 17.40 E' Laterial: 7.54 E/E' Lat: 14.30 Right Ventricle TAPSE (mm): 14.00 TVS' Francisco: 7.50 Tricuspid Valve TR Pk Francisco: 2.00 TR Pk Grad: 16.00 RA Press: 8.00 RVSP: 24.00 Great Vessels Aorta Sinus of Valsalva: 3.60 2.0-3.5 cm Ao Asc: 4.00 2.1-3.4 cm Pulmonary Valve PV Pk Francisco: 1.04 Peak PV Grad: 4.00 Updated in Other Vendor System with Status of Final Reinier Alejandro MD electronically signed on 02/03/2025 2:47:16 PM with status of Final
[2025-01-31 07:21] LABS: MANUAL DIFF FLAG NO
[2025-01-31 07:26] LABS: Basophils Percent Auto 0.1 % (0-2); Eosinophils Percent Auto 0.1 % (0-4); Hematocrit 36.9 % (42.0-52.0); Hemoglobin 13.1 g/dl (14.0-18.0); Imm Gran Abs Auto 0.08 X10*3/uL (0.00-0.03); Imm Gran Pct Auto 0.5 % (0.0-0.4); Lymphocytes Absolute Auto 1.4 X10*3/uL (1.2-4.9); Mean Corpuscular HGB Conc 35.5 g/dl (31.0-36.0); Mean Corpuscular Hemoglobin 33.2 pg (27.0-33.0); Mean Corpuscular Volume 93.7 fL (80.0-98.0); Mean Platelet Volume 9.7 fL (9.4-12.4); Monocytes Absolute Auto 1.1 X10*3/uL (0.1-1.2); Monocytes Percent Auto 7.1 % (2-11); Neutrophils Absolute Auto 12.4 x10*3/uL (2.0-8.3); Neutrophils Percent Auto 83.2 % (45-73); Platelet Count 219 X10*3/uL (160-400); Red Blood Count 3.94 X10*6/uL (4.60-5.80); Red Cell Distribution Width 13.2 % (11.0-16.0)
[2025-01-31 07:35] LABS: Glucose, Whole Blood 112 mg/dL (60-115)
--- NOTE | 2025-01-31 07:45 | PM.UROCN ---
History of Present Illness Consult details Consult date: 01/31/25 Narrative: 79-year-old male history of CAD s/p CABG 4 years prior, alcohol use disorder with history of withdrawal seizure. CTAP: B/L hydronephrosis, hydroureter, secondary to outlet obstr, enlarged prostate. BUN/creat 33/1.15, lactic acid 5.2 --1.5 Review of Systems Review of Systems: Yes Unobtainable due to mental condition PMFSH Past Medical History Medical History Hepatic steatosis Cerumen impaction Cervical spondylosis CVA (cerebral vascular accident) ETOH abuse Afib Surgical History Surgical History History of ankle surgery Hx of CABG Social History Social History Household Members: None Housing: Apartment Do you presently have visiting nurse or other home services: Yes (niece/chemical production engineer 2-3hrs a day) Alcohol intake: current Alcohol intake frequency: 0-2 drinks per day Alcohol type: beer Patient Tobacco Use Status: Never used Tobacco Advance Directives Date on File: 06/13/24 Travel History Ebola Risk: Travel/Contact With Anyone From Affected Area/s: No Has Patient Experienced Ebola Symptoms: No Meds Allergies Allergy/AdvReac Type Severity Reaction Status Date / Time No Known Allergies Allergy Verified 01/30/25 13:49 Active Medications: Current Medications Acetaminophen (Acetaminophen 325 Mg Tablet) 650 mg PO Q6H PRN PRN Reason: Pain, Mild 1-3,fever,headache Albuterol/Ipratropium (Albuterol/Iprat 2.5/0.5mg 3 Ml Ampul.Neb) 3 ml INHALE Q4H PRN PRN Reason: Shortness of Breath/Wheezing Calcium Carbonate (Calcium Carbonate 750 Mg Tab.Chew) 750 mg PO Q4H PRN PRN Reason: Heartburn Ceftriaxone Sodium (Ceftriaxone Sodium 1 Gm Vial) 1 gm IVPUSH Q24H [facility] Folic Acid (Folic Acid 1 Mg Tablet) 1 mg PO DAILY [facility] Lactated Ringer's (Lr) 1,000 mls @ 125 mls/hr IVCONT .Q8H [facility] Last Admin: 01/31/25 04:27 Dose: 125 mls/hr Magnesium Hydroxide (Milk Of Magnesia 30 Ml Oral.Susp) 30 ml PO DAILY PRN PRN Reason: Constipation Melatonin (Melatonin 3 Mg Tablet) 6 mg PO BEDTIME PRN PRN Reason: Insomnia Ondansetron HCl (Ondansetron Hcl 4 Mg/2 Ml Vial) 4 mg IVPUSH Q8H PRN PRN Reason: Nausea and Vomiting Pantoprazole Sodium (Pantoprazole Sodium 40 Mg/10 Ml Vial) 40 mg IVPUSH DAILY@0630 [facility] Last Admin: 01/31/25 06:42 Dose: 40 mg Pharmacy Consult (Consult Rx Etoh Phenob Po Only) 1 each MISCELLANE ONCE PRN; Protocol PRN Reason: Consult order Phenobarbital (Phenobarbital 15 Mg Tablet) 45 mg PO BID [facility] Stop: 02/01/25 21:01 Phenobarbital (Phenobarbital 15 Mg Tablet) 15 mg PO BID [facility] Stop: 02/03/25 21:01 Phenobarbital (Phenobarbital 15 Mg Tablet) 15 mg PO DAILY [facility] Stop: 02/05/25 09:01 Senna (Sennosides 8.6 Mg Tablet) 17.2 mg PO BEDTIME [facility] Last Admin: 01/30/25 20:46 Dose: Not Given Sodium Chloride (0.9 % Sodium Chloride Flush 3 Ml Syringe) 3 ml IVFLUSH QSHIFT [facility] Last Admin: 01/31/25 04:26 Dose: 3 ml Thiamine HCl (Thiamine Hcl 100 Mg Tablet) 100 mg PO DAILY [facility] Home Medications ?Medication ?Instructions ?Recorded ?Confirmed ?Last Taken ?Type amlodipine 10 mg tablet 10 mg PO DAILY 01/30/25 01/30/25 01/27/25 History apixaban 5 mg tablet (Eliquis) 5 mg PO BID 01/30/25 01/30/25 01/27/25 History aspirin 81 mg tablet,delayed 81 mg PO DAILY 01/30/25 01/30/25 01/27/25 History release atorvastatin 40 mg tablet 40 mg PO DAILY 01/30/25 01/30/25 01/27/25 History carvedilol 12.5 mg tablet 12.5 mg PO BID 01/30/25 01/30/25 01/27/25 History citalopram 10 mg tablet 10 mg PO DAILY 01/30/25 01/30/25 01/27/25 History digoxin 125 mcg (0.125 mg) tablet 125 mcg PO DAILY 01/30/25 01/30/25 01/27/25 History furosemide 40 mg tablet 40 mg PO DAILY 01/30/25 01/30/25 01/27/25 History lisinopril 40 mg tablet 40 mg PO DAILY 01/30/25 01/30/25 01/27/25 History melatonin 5 mg tablet 5 mg PO BEDTIME 01/30/25 01/30/25 01/27/25 History thiamine HCl (vitamin B1) 250 mg 250 mg PO BID 01/30/25 01/30/25 01/27/25 History tablet (Vitamin B-1) Physical Exam Vital Signs: Vital Signs: Last Vital Signs Temp 99.4 F 01/31/25 03:56 Pulse 80 01/31/25 03:56 Resp 20 01/31/25 03:56 BP 133/69 01/31/25 03:56 Pulse Ox 97 01/31/25 03:56 O2 Del Method Room Air 01/31/25 03:56 BMI result Body Mass Index 33.5 Const: General: no acute distress and well developed HEENT: Head: Yes normocephalic and Yes atraumatic Eyes: Conjunctivae: conjunctivae normal Neck: Neck: Yes normal visual inspection Chest: Chest palpation & inspection: normal inspection of the chest Resp: Effort & Inspection: normal respiratory effort Cardio: Rate: regular rate GI: Inspection: Yes normal to inspection Palpation (GI): Soft to palpation : Other: Lopez is in place, urine concentrated Scrotum: Hydrocele present and scrotal swelling Psych: Appearance: grossly normal Affect: normal affect Results Labs 01/31/25 06:39 01/31/25 06:39 Labs: Abnormal lab results 01/30/25 01/30/25 01/30/25 Range/Units 14:14 14:29 14:54 WBC 21.9 H (4.8-10.8) X10*3/uL RBC (4.60-5.80) X10*6/uL Hgb (14.0-18.0) g/dl Hct (42.0-52.0) % MCH 33.4 H (27.0-33.0) pg Immature Gran % (Auto) 0.9 H (0.0-0.4) % Neut % (Auto) 89.5 H (45-73) % Lymph % (Auto) 3.1 L (20-40) % Lymph # (Auto) 0.7 L (1.2-4.9) X10*3/uL [place] # (Auto) 1.4 H (0.1-1.2) X10*3/uL Abs Immat Gran (auto) 0.20 H (0.00-0.03) X10*3/uL Absolute Neuts (auto) 19.6 H (2.0-8.3) x10*3/uL Sodium 131 L (135-145) mmol/L Chloride 95 L (96-108) mmol/L Carbon Dioxide 19 L (22-29) mmol/L Anion Gap 22 H (12-20) BUN 33 H (9-16) mg/dL POC Glucose 178 H (60-115) mg/dL Random Glucose 165 H (60-115) mg/dL Lactic Acid 5.2 H* (0.5-2.0) mmol/L Lactic Acid F/U @ 2Hr (0.5-2.0) mmol/L Total Bilirubin 2.0 H (0.0-1.0) mg/dL Direct Bilirubin 0.8 H (0.0-0.5) mg/dL AST 204 H (5-37) U/L ALT 79 H (0-40) U/L Alkaline Phosphatase 121 H (39-117) U/L Total Creatine Kinase 3245 H (38-174) U/L C-Reactive Protein 6.63 H (< or = 0.50) mg/dL B-Natriuretic Peptide 101 H (<100) pg/mL Urine Protein (Neg-Trace) mg/dL Urine Blood (Negative) Urine RBC (0-2) /HPF Digoxin (0.8-2.0) ng/mL 01/30/25 01/30/25 01/30/25 Range/Units 15:52 17:23 18:19 WBC (4.8-10.8) X10*3/uL RBC (4.60-5.80) X10*6/uL Hgb (14.0-18.0) g/dl Hct (42.0-52.0) % MCH (27.0-33.0) pg Immature Gran % (Auto) (0.0-0.4) % Neut % (Auto) (45-73) % Lymph % (Auto) (20-40) % Lymph # (Auto) (1.2-4.9) X10*3/uL [place] # (Auto) (0.1-1.2) X10*3/uL Abs Immat Gran (auto) (0.00-0.03) X10*3/uL Absolute Neuts (auto) (2.0-8.3) x10*3/uL Sodium (135-145) mmol/L Chloride (96-108) mmol/L Carbon Dioxide (22-29) mmol/L Anion Gap (12-20) BUN (9-16) mg/dL POC Glucose 161 H (60-115) mg/dL Random Glucose (60-115) mg/dL Lactic Acid (0.5-2.0) mmol/L Lactic Acid F/U @ 2Hr 2.9 H* (0.5-2.0) mmol/L Total Bilirubin (0.0-1.0) mg/dL Direct Bilirubin (0.0-0.5) mg/dL AST (5-37) U/L ALT (0-40) U/L Alkaline Phosphatase (39-117) U/L Total Creatine Kinase (38-174) U/L C-Reactive Protein (< or = 0.50) mg/dL B-Natriuretic Peptide (<100) pg/mL Urine Protein 100 (2+) H (Neg-Trace) mg/dL Urine Blood Large (3+) H (Negative) Urine RBC 11-20 H (0-2) /HPF Digoxin (0.8-2.0) ng/mL 01/30/25 01/31/25 Range/Units 21:08 06:39 WBC 15.0 H (4.8-10.8) X10*3/uL RBC 3.94 L (4.60-5.80) X10*6/uL Hgb 13.1 L (14.0-18.0) g/dl Hct 36.9 L (42.0-52.0) % MCH 33.2 H (27.0-33.0) pg Immature Gran % (Auto) 0.5 H (0.0-0.4) % Neut % (Auto) 83.2 H (45-73) % Lymph % (Auto) 9.0 L (20-40) % Lymph # (Auto) (1.2-4.9) X10*3/uL [place] # (Auto) (0.1-1.2) X10*3/uL Abs Immat Gran (auto) 0.08 H (0.00-0.03) X10*3/uL Absolute Neuts (auto) 12.4 H (2.0-8.3) x10*3/uL Sodium (135-145) mmol/L Chloride (96-108) mmol/L Carbon Dioxide (22-29) mmol/L Anion Gap (12-20) BUN (9-16) mg/dL POC Glucose (60-115) mg/dL Random Glucose (60-115) mg/dL Lactic Acid (0.5-2.0) mmol/L Lactic Acid F/U @ 2Hr (0.5-2.0) mmol/L Total Bilirubin (0.0-1.0) mg/dL Direct Bilirubin (0.0-0.5) mg/dL AST (5-37) U/L ALT (0-40) U/L Alkaline Phosphatase (39-117) U/L Total Creatine Kinase (38-174) U/L C-Reactive Protein (< or = 0.50) mg/dL B-Natriuretic Peptide (<100) pg/mL Urine Protein (Neg-Trace) mg/dL Urine Blood (Negative) Urine RBC (0-2) /HPF Digoxin 0.2 L (0.8-2.0) ng/mL Short CBC 01/30/25 01/31/25 Range/Units 14:14 06:39 WBC 21.9 H 15.0 H (4.8-10.8) X10*3/uL Hgb 15.6 13.1 L (14.0-18.0) g/dl Hct 43.7 36.9 L (42.0-52.0) % Plt Count 297 219 D (160-400) X10*3/uL BMP 01/30/25 14:14 Sodium 131 L Potassium 4.8 D Chloride 95 L Carbon Dioxide 19 L BUN 33 H Creatinine 1.15 Calcium 9.6 Cardiac Enzymes 01/30/25 Range/Units 14:14 Total Creatine Kinase 3245 H (38-174) U/L Liver Function 01/30/25 Range/Units 14:54 Total Bilirubin 2.0 H (0.0-1.0) mg/dL Direct Bilirubin 0.8 H (0.0-0.5) mg/dL AST 204 H (5-37) U/L ALT 79 H (0-40) U/L Alkaline Phosphatase 121 H (39-117) U/L Albumin 4.3 (3.5-5.0) g/dL Urine 01/30/25 Range/Units 18:19 Urine Color Dark Yellow Urine Appearance Clear Urine pH 5.5 (5.0-9.0) Ur Specific [place] 1.015 (1.005-1.025) Urine Protein 100 (2+) H (Neg-Trace) mg/dL Urine Glucose (UA) Negative (Negative) mg/dL All other labs normal. Imaging Additional studies: Date of Service: 01/30/25 CLINICAL HISTORY: Abnormal chest x-ray, suspicion for SBO CT abdomen and pelvis without contrast Comparison: None Findings: No consolidation at the lung bases. No cardiomegaly. Severe calcified coronary artery disease. Mild calcification of the aortic valve. Unremarkable gallbladder. Distended bladder, measuring 18.6 cm in craniocaudal dimension. Subsequent mild bilateral hydroureteronephrosis. No urinary tract stone. The prostate measures 4.5 cm in transverse dimension with mild intravesicular extension. Hepatic steatosis. The other solid organs are unremarkable. No bowel wall thickening or dilation. A normal appendix is identified. No aneurysm. Severe calcified atherosclerotic disease. No lymphadenopathy. No ascites. Large bilateral hydroceles, [id number]-left. There is scrotal edema. No soft tissue gas. No acute osseous abnormality. Impression: Marked distention of the bladder with subsequent mild bilateral hydroureteronephrosis. No urinary tract stone. Consider chronic outlet obstruction secondary to BPH. Large bilateral hydroceles, [id number]-left. Scrotal edema. No bowel obstruction. Assessment and Plan (1) Acute urinary retention: Status: Acute (2) Scrotal swelling: Status: Acute (3) Bilateral hydronephrosis: Status: Acute (4) Obstructive uropathy: Status: Acute (5) Enlarged prostate: Status: Acute Plan On IV Abx, blood and urine c/s pending, urinalysis 3+ blood, negative leukocytes, lopez to gravity Recommend flomax 0.4 mg daily and proscar 5 mg daily Scrotal support for scrotal edema, recommend scrotal US, evaluate for orchitis Procedures Date of Service Date of Service: 01/31/25
[2025-01-31 07:50] LABS: Alanine Aminotransferase 49 U/L (0-40); Albumin Level 3.1 g/dL (3.5-5.0); Alkaline Phosphatase 67 U/L (39-117); Aspartate Amino Transferase 123 U/L (5-37); Bilirubin Total 1.3 mg/dL (0.0-1.0); Blood Urea Nitrogen 23 mg/dL (9-16); Creatinine Clr Calc Pharmacy 78.6; Estimated Glomerular Filt Rate > 60; Glucose Random 112 mg/dL (60-115); Total Protein 5.6 g/dL (6.5-8.0)
[2025-01-31 07:54] LABS: Anion Gap 14 (12-20); Calcium 8.5 mg/dL (8.4-10.2); Carbon Dioxide 25 mmol/L (22-29); Chloride 101 mmol/L (96-108); Potassium 3.7 mmol/L (3.3-5.1); Sodium 136 mmol/L (135-145)
[2025-01-31 08:01] LABS: Prostate Specific Antigen Scr 11.17 ng/mL (<0.05-4.0)
[2025-01-31 08:04] LABS: HBc Num1 0.25 S/CO (0.00-0.79); HBsAGNum1 0.44 S/CO (0.00-0.99); Hepatitis A Antibody IgM 0.21 Index (0-0.79); Hepatitis B Core Antibody Nonreactive (Nonreactive); Hepatitis B Surface Antigen Negative (Negative); ~HepC Num1 0.06 S/CO (0.00-0.79); ~Hepatitis A Antibody IgM Nonreactive (Nonreactive); ~Hepatitis B Surface Antibody NONREACTIVE (Nonreactive); ~Hepatitis C Antibody Nonreactive (Nonreactive)
[2025-01-31] MEDS: PHENobarbitaL 15 MG TABLET 45 MG PO ×2 (08:44→20:11)
[2025-01-31] MEDS: Folic Acid 1 MG TABLET PO (08:44)
[2025-01-31] MEDS: Thiamine HCL 100 MG TABLET PO (08:44)
[2025-01-31] MEDS: carvediloL 12.5 MG TABLET PO ×2 (10:52→20:12)
[2025-01-31] MEDS: Digoxin 0.125 MG TABLET PO (10:52)
[2025-01-31] MEDS: cefTRIAXone sodium 1 GM VIAL IVPUSH (14:01)
[2025-01-31] MEDS: Finasteride 5 MG TABLET PO (14:02)
--- NOTE | 2025-01-31 14:11 | MHC.CM.PN ---
IMM 01/31. Pt self-care, lives at home alone, pts niece comes for 3 days a week to help assist him. HCP on file and verified. PT recommending STR, pt is in agreement, [facility] and [facility], referrals placed. PCP: Av AVILA
--- NOTE | 2025-01-31 15:49 | HO.ADDICTCON ---
History of Present Illness Date of Service: 01/31/2025 Chief Complaint: ETOH withdrawal, rhabdomyolosis Reason for Consult: AUD Sources of Information: patient interviewed and chart reviewed HPI Narrative: Patient is a 79 year old male who presented to ED via ambulance after being found on the floor of his home --incontinent of urine, unclear how long he was there. Admitted with rhabdo, UTI and started on pheno taper for concern of alcohol withdrawal. Medical history includes AFIB, CAD and MDD. Patient seen in room 468. He is awake, alert, oriented to person and place only. Appearing comfortable, watching TV. Unclear how reliable of a reported patient is with the following information. He reports drinking a 12 pack of beer every 2 days. Has been drinking this amount for years . Denies any history of treatment or history of not drinking. When asked about withdrawal sx, he denies any, but states that he is scared and nervous to be in the hospital as he has never been in the hospital. Chart review shows that 06/2024 patient was seen in ED for what was believed to be an alcohol withdrawal seizure. When asked about goals related to alcohol, he replied I want to cut way back . CIWA scores have been low--1 today. Hypertensive at baseline. Very mild tremor noted. Denies n/v or loose stools. AUDIT-C Brief Intervention This proposal manager writer met with patient to discuss current alcohol use and concerns related to increased risk of alcohol related problems. Discussed how alcohol use has impacted health, including negative impact on mental health and overall physical wellbeing. Discussed risk reduction strategies including drinking below the recommended limit. Medical Evaluation Reviewed: Yes Review of Systems Constitutional: Reports as per HPI Diagnostics Vital Signs (24Hr): Vital Signs - 24 hr 01/30/25 16:02 01/30/25 16:17 01/30/25 16:32 Temperature Pulse Rate 100 100 101 H Respiratory Rate 25 H 24 H 23 H Blood Pressure 140/83 H 129/77 142/73 H Pulse Oximetry 93 96 93 Oxygen Delivery Method Room Air Room Air Room Air 01/30/25 17:16 01/30/25 18:18 01/30/25 20:07 Temperature 98.2 F 98.2 F Pulse Rate 101 H 99 103 H Respiratory Rate 24 H 24 H 23 H Blood Pressure 134/77 139/82 144/72 H Pulse Oximetry 96 96 96 Oxygen Delivery Method Room Air Room Air Room Air 01/30/25 20:08 01/30/25 23:03 01/31/25 03:56 Temperature 98.1 F 99.2 F 99.4 F Pulse Rate 101 H 98 80 Respiratory Rate 22 H 20 20 Blood Pressure 144/72 H 142/62 H 133/69 Pulse Oximetry 97 97 97 Oxygen Delivery Method Room Air Room Air Room Air 01/31/25 07:59 01/31/25 11:28 01/31/25 11:36 Temperature 97.9 F 98.5 F Pulse Rate 71 94 94 Respiratory Rate 18 18 Blood Pressure 124/60 149/81 H 149/81 H Pulse Oximetry 95 91 L 91 L Oxygen Delivery Method Room Air Room Air BMI result Body Mass Index 33.5 Labs 01/31/25 06:39 01/31/25 06:39 Labs: Laboratory Results - last 48 hr 01/30/25 01/30/25 01/30/25 14:14 14:29 14:54 WBC 21.9 H RBC 4.67 Hgb 15.6 Hct 43.7 MCV 93.6 MCH 33.4 H MCHC 35.7 RDW 13.1 Plt Count 297 MPV 9.6 Immature Gran % (Auto) 0.9 H Neut % (Auto) 89.5 H Lymph % (Auto) 3.1 L [place] % (Auto) 6.3 Eos % (Auto) 0.1 Baso % (Auto) 0.1 Lymph # (Auto) 0.7 L [place] # (Auto) 1.4 H Eos # (Auto) 0.0 Baso # (Auto) 0.0 Abs Immat Gran (auto) 0.20 H Absolute Neuts (auto) 19.6 H Absolute Nucleated RBC 0.000 Nucleated RBC % (auto) 0.0 ESR 14 PT 11.7 INR 1.0 Sodium 131 L Potassium 4.8 D Chloride 95 L Carbon Dioxide 19 L Anion Gap 22 H BUN 33 H Creatinine 1.15 Estim Creat Clear Calc 46.5 Estimated GFR > 60 POC Glucose 178 H Random Glucose 165 H Lactic Acid 5.2 H* Lactic Acid F/U @ 2Hr Lactic Acid F/U @ 4Hr Calcium 9.6 Phosphorus 3.7 Magnesium 2.3 Total Bilirubin 2.0 H Direct Bilirubin 0.8 H AST 204 H ALT 79 H Alkaline Phosphatase 121 H Total Creatine Kinase 3245 H Troponin I High Sens 17.4 D C-Reactive Protein 6.63 H B-Natriuretic Peptide 101 H Total Protein 7.9 Albumin 4.3 Lipase 28 PSA Screen TSH 1.26 Free T4 1.46 Urine Color Urine Appearance Urine pH Ur Specific [place] Urine Protein Urine Glucose (UA) Urine Ketones Urine Blood Urine Nitrite Ur Leukocyte Esterase Urine RBC Urine WBC Ur Squamous Epith Cells Urine Bacteria Hyaline Casts Digoxin Ethyl Alcohol < 10 Hepatitis A IgM Ab Hep Bs Antigen Hep Bs Antibody Hep B Core Total Ab Hepatitis C Ab (EIA) 01/30/25 01/30/25 01/30/25 15:52 17:23 18:19 WBC RBC Hgb Hct MCV MCH MCHC RDW Plt Count MPV Immature Gran % (Auto) Neut % (Auto) Lymph % (Auto) [place] % (Auto) Eos % (Auto) Baso % (Auto) Lymph # (Auto) [place] # (Auto) Eos # (Auto) Baso # (Auto) Abs Immat Gran (auto) Absolute Neuts (auto) Absolute Nucleated RBC Nucleated RBC % (auto) ESR PT INR Sodium Potassium Chloride Carbon Dioxide Anion Gap BUN Creatinine Estim Creat Clear Calc Estimated GFR POC Glucose 161 H Random Glucose Lactic Acid Lactic Acid F/U @ 2Hr 2.9 H* Lactic Acid F/U @ 4Hr Calcium Phosphorus Magnesium Total Bilirubin Direct Bilirubin AST ALT Alkaline Phosphatase Total Creatine Kinase Troponin I High Sens C-Reactive Protein B-Natriuretic Peptide Total Protein Albumin Lipase PSA Screen TSH Free T4 Urine Color Dark Yellow Urine Appearance Clear Urine pH 5.5 Ur Specific [place] 1.015 Urine Protein 100 (2+) H Urine Glucose (UA) Negative Urine Ketones Trace Urine Blood Large (3+) H Urine Nitrite Negative Ur Leukocyte Esterase Negative Urine RBC 11-20 H Urine WBC 0-5 Ur Squamous Epith Cells 0-2 Urine Bacteria None Seen Hyaline Casts 3-5 Digoxin Ethyl Alcohol Hepatitis A IgM Ab Hep Bs Antigen Hep Bs Antibody Hep B Core Total Ab Hepatitis C Ab (EIA) 01/30/25 01/30/25 01/31/25 19:55 21:08 06:39 WBC 15.0 H RBC 3.94 L Hgb 13.1 L Hct 36.9 L MCV 93.7 MCH 33.2 H MCHC 35.5 RDW 13.2 Plt Count 219 D MPV 9.7 Immature Gran % (Auto) 0.5 H Neut % (Auto) 83.2 H Lymph % (Auto) 9.0 L [place] % (Auto) 7.1 Eos % (Auto) 0.1 Baso % (Auto) 0.1 Lymph # (Auto) 1.4 [place] # (Auto) 1.1 Eos # (Auto) 0.0 Baso # (Auto) 0.0 Abs Immat Gran (auto) 0.08 H Absolute Neuts (auto) 12.4 H Absolute Nucleated RBC 0.000 Nucleated RBC % (auto) 0.0 ESR PT INR Sodium 136 Potassium 3.7 D Chloride 101 Carbon Dioxide 25 Anion Gap 14 BUN 23 H Creatinine 0.68 Estim Creat Clear Calc 78.6 Estimated GFR > 60 POC Glucose Random Glucose 112 Lactic Acid 1.5 Lactic Acid F/U @ 2Hr Lactic Acid F/U @ 4Hr 1.9 Calcium 8.5 D Phosphorus Magnesium Total Bilirubin 1.3 H Direct Bilirubin AST 123 H ALT 49 H Alkaline Phosphatase 67 Total Creatine Kinase 1420 H Troponin I High Sens C-Reactive Protein B-Natriuretic Peptide Total Protein 5.6 L Albumin 3.1 L Lipase PSA Screen 11.17 H TSH Free T4 Urine Color Urine Appearance Urine pH Ur Specific [place] Urine Protein Urine Glucose (UA) Urine Ketones Urine Blood Urine Nitrite Ur Leukocyte Esterase Urine RBC Urine WBC Ur Squamous Epith Cells Urine Bacteria Hyaline Casts Digoxin 0.2 L Ethyl Alcohol Hepatitis A IgM Ab Nonreactive Hep Bs Antigen Negative Hep Bs Antibody NONREACTIVE Hep B Core Total Ab Nonreactive Hepatitis C Ab (EIA) Nonreactive 01/31/25 07:26 WBC RBC Hgb Hct MCV MCH MCHC RDW Plt Count MPV Immature Gran % (Auto) Neut % (Auto) Lymph % (Auto) [place] % (Auto) Eos % (Auto) Baso % (Auto) Lymph # (Auto) [place] # (Auto) Eos # (Auto) Baso # (Auto) Abs Immat Gran (auto) Absolute Neuts (auto) Absolute Nucleated RBC Nucleated RBC % (auto) ESR PT INR Sodium Potassium Chloride Carbon Dioxide Anion Gap BUN Creatinine Estim Creat Clear Calc Estimated GFR POC Glucose 112 Random Glucose Lactic Acid Lactic Acid F/U @ 2Hr Lactic Acid F/U @ 4Hr Calcium Phosphorus Magnesium Total Bilirubin Direct Bilirubin AST ALT Alkaline Phosphatase Total Creatine Kinase Troponin I High Sens C-Reactive Protein B-Natriuretic Peptide Total Protein Albumin Lipase PSA Screen TSH Free T4 Urine Color Urine Appearance Urine pH Ur Specific [place] Urine Protein Urine Glucose (UA) Urine Ketones Urine Blood Urine Nitrite Ur Leukocyte Esterase Urine RBC Urine WBC Ur Squamous Epith Cells Urine Bacteria Hyaline Casts Digoxin Ethyl Alcohol Hepatitis A IgM Ab Hep Bs Antigen Hep Bs Antibody Hep B Core Total Ab Hepatitis C Ab (EIA) Imaging Radiology Impressions: ITS Impressions Ankle X-Ray 01/30/25 14:53 IMPRESSION: Degenerative changes without acute fracture or dislocation. Status post open reduction internal fixation of prior ankle fracture. Atherosclerosis disease, peripheral. Electronically signed by: Arias Hagen MD 01/30/2025 03:34 PM EDT RP Ankle X-Ray 01/30/25 14:53 IMPRESSION: No acute fracture or dislocation. Atherosclerosis disease, peripheral. Degenerative changes. Electronically signed by: Arias Hagen MD 01/30/2025 03:30 PM EDT RP Cervical Spine CT 01/30/25 14:53 IMPRESSION: 1. No CT evidence of acute cervical spine fracture or injury. 2. Extensive degenerative spondylosis of the cervical spine. 3. Ancillary findings as discussed. Electronically signed by: Fausto Rogers MD 01/30/2025 04:04 PM EDT RP Foot X-Ray 01/30/25 14:53 IMPRESSION: Severe degenerative changes seen involving the first metatarsophalangeal joint. No acute fracture or dislocation. Atherosclerosis disease, peripheral. Electronically signed by: Arias Hagen MD 01/30/2025 03:33 PM EDT RP Head CT 01/30/25 15:37 IMPRESSION: 1. No acute intracranial abnormality. 2. Moderate to severe small vessel ischemic changes, and numerous old lacunar type infarctions in the right cerebellum and bilateral gangliocapsular regions. 3. There is a parieto-occipital subgaleal scalp fluid collection, likely evolving hematoma. 4. Cerumen impaction in both EACs. Electronically signed by: Fausto Rogers MD 01/30/2025 03:51 PM EDT RP Chest X-Ray 01/30/25 15:55 IMPRESSION: No acute airspace disease. Acute intra-abdominal process cannot be excluded. Electronically signed by: Arias Hagen MD 01/30/2025 04:19 PM EDT RP Mental Status Exam Mental Status Exam Patient Orientation: Person and Place Level of Consciousness: Awake and Alert Patient Behavior: Appropriate and Cooperative Affect Description: Calm Speech Pattern: Clear Medications Medications Current Medications Acetaminophen (Acetaminophen 325 Mg Tablet) 650 mg PO Q6H PRN PRN Reason: Pain, Mild 1-3,fever,headache Albuterol/Ipratropium (Albuterol/Iprat 2.5/0.5mg 3 Ml Ampul.Neb) 3 ml INHALE Q4H PRN PRN Reason: Shortness of Breath/Wheezing Calcium Carbonate (Calcium Carbonate 750 Mg Tab.Chew) 750 mg PO Q4H PRN PRN Reason: Heartburn Carvedilol (Carvedilol 12.5 Mg Tablet) 12.5 mg PO BID [facility]; Protocol Last Admin: 01/31/25 10:52 Dose: 12.5 mg Ceftriaxone Sodium (Ceftriaxone Sodium 1 Gm Vial) 1 gm IVPUSH Q24H [facility] Last Admin: 01/31/25 14:01 Dose: 1 gm Digoxin (Digoxin 0.125 Mg Tablet) 0.125 mg PO DAILY [facility]; Protocol Last Admin: 01/31/25 10:52 Dose: 0.125 mg Escitalopram Oxalate (Escitalopram Oxalate 5 Mg Tablet) 5 mg PO DAILY [facility] Finasteride (Finasteride 5 Mg Tablet) 5 mg PO DAILY [facility] Last Admin: 01/31/25 14:02 Dose: 5 mg Folic Acid (Folic Acid 1 Mg Tablet) 1 mg PO DAILY [facility] Last Admin: 01/31/25 08:44 Dose: 1 mg Lactated Ringer's (Lr) 1,000 mls @ 125 mls/hr IVCONT .Q8H [facility] Last Admin: 01/31/25 10:53 Dose: 125 mls/hr Magnesium Hydroxide (Milk Of Magnesia 30 Ml Oral.Susp) 30 ml PO DAILY PRN PRN Reason: Constipation Melatonin (Melatonin 3 Mg Tablet) 6 mg PO BEDTIME [facility] Ondansetron HCl (Ondansetron Hcl 4 Mg/2 Ml Vial) 4 mg IVPUSH Q8H PRN PRN Reason: Nausea and Vomiting Pantoprazole Sodium (Pantoprazole Sodium 40 Mg/10 Ml Vial) 40 mg IVPUSH DAILY@0630 [facility] Last Admin: 01/31/25 06:42 Dose: 40 mg Pharmacy Consult (Consult Rx Etoh Phenob Po Only) 1 each MISCELLANE ONCE PRN; Protocol PRN Reason: Consult order Phenobarbital (Phenobarbital 15 Mg Tablet) 45 mg PO BID [facility] Stop: 02/01/25 21:01 Last Admin: 01/31/25 08:44 Dose: 45 mg Phenobarbital (Phenobarbital 15 Mg Tablet) 15 mg PO BID [facility] Stop: 02/03/25 21:01 Phenobarbital (Phenobarbital 15 Mg Tablet) 15 mg PO DAILY [facility] Stop: 02/05/25 09:01 Senna (Sennosides 8.6 Mg Tablet) 17.2 mg PO BEDTIME [facility] Last Admin: 01/30/25 20:46 Dose: Not Given Sodium Chloride (0.9 % Sodium Chloride Flush 3 Ml Syringe) 3 ml IVFLUSH QSHIFT [facility] Last Admin: 01/31/25 14:18 Dose: 3 ml Tamsulosin HCl (Tamsulosin Hcl 0.4 Mg Capsule) 0.4 mg PO BEDTIME [facility] Thiamine HCl (Thiamine Hcl 100 Mg Tablet) 250 mg PO BID [facility] Allergies Allergies Allergy/AdvReac Type Severity Reaction Status Date / Time No Known Allergies Allergy Verified 01/30/25 13:49 Assessment & Plan Assessment & Plan (1) Alcohol use disorder, moderate, dependence: Status: Acute Code(s): F10.20 - Alcohol dependence, uncomplicated Assessment and Plan: pheno taper in place and withdrawal managed well no follow up indicated at this time--pt d/c to [facility] Total time managing care of this patient today __35__ minutes. PMFSH Past Medical History Medical History Hepatic steatosis Cerumen impaction Cervical spondylosis CVA (cerebral vascular accident) ETOH abuse Afib Surgical History Surgical History History of ankle surgery Hx of CABG Social History Social History Household Members: None Housing: Apartment Do you presently have visiting nurse or other home services: Yes (niece/monument mason 2-3hrs a day) Alcohol intake: current Alcohol intake frequency: 0-2 drinks per day Alcohol type: beer Patient Tobacco Use Status: Never used Tobacco Advance Directives Date on File: 06/13/24 service: No
--- NOTE | 2025-01-31 15:51 | P.PNIM_ITS ---
Subjective Subjective Date of Service: 01/31/25 Interval History: rhabdomylysis uti Review of Systems no new c/o no bruises on head denies abd pain tramulous Review of Systems: Yes all other systems are reviewed and are negative Physical Exam 2 Vital Signs: Vital Signs: Last Vital Signs Temp 98.5 F 01/31/25 11:28 Pulse 94 01/31/25 11:36 Resp 18 01/31/25 11:28 BP 149/81 H 01/31/25 11:36 Pulse Ox 91 L 01/31/25 11:36 O2 Del Method Room Air 01/31/25 11:28 BMI result Body Mass Index 33.5 Appearance: Alert.? Oriented X3.? cvs: rrr, [id number]. res: air entry fair ,taisha or wheezing abd: no rebound or guarding ,nt, bs present. has lopez ext pulses present , no cyanosis. neuro: axo3 , nonfocal. Objective Data Active Medications Acetaminophen (Acetaminophen 325 Mg Tablet) 650 mg PO Q6H PRN PRN Reason: Pain, Mild 1-3,fever,headache Albuterol/Ipratropium (Albuterol/Iprat 2.5/0.5mg 3 Ml Ampul.Neb) 3 ml INHALE Q4H PRN PRN Reason: Shortness of Breath/Wheezing Calcium Carbonate (Calcium Carbonate 750 Mg Tab.Chew) 750 mg PO Q4H PRN PRN Reason: Heartburn Carvedilol (Carvedilol 12.5 Mg Tablet) 12.5 mg PO BID [facility]; Protocol Last Admin: 01/31/25 10:52 Dose: 12.5 mg Documented By: MOR Ceftriaxone Sodium (Ceftriaxone Sodium 1 Gm Vial) 1 gm IVPUSH Q24H [facility] Last Admin: 01/31/25 14:01 Dose: 1 gm Documented By: VENICE Digoxin (Digoxin 0.125 Mg Tablet) 0.125 mg PO DAILY [facility]; Protocol Last Admin: 01/31/25 10:52 Dose: 0.125 mg Documented By: MOR Escitalopram Oxalate (Escitalopram Oxalate 5 Mg Tablet) 5 mg PO DAILY [facility] Finasteride (Finasteride 5 Mg Tablet) 5 mg PO DAILY [facility] Last Admin: 01/31/25 14:02 Dose: 5 mg Documented By: VENICE Folic Acid (Folic Acid 1 Mg Tablet) 1 mg PO DAILY [facility] Last Admin: 01/31/25 08:44 Dose: 1 mg Documented By: JOANN Lactated Ringer's (Lr) 1,000 mls @ 125 mls/hr IVCONT .Q8H [facility] Last Admin: 01/31/25 10:53 Dose: 125 mls/hr Documented By: MOR Magnesium Hydroxide (Milk Of Magnesia 30 Ml Oral.Susp) 30 ml PO DAILY PRN PRN Reason: Constipation Melatonin (Melatonin 3 Mg Tablet) 6 mg PO BEDTIME [facility] Ondansetron HCl (Ondansetron Hcl 4 Mg/2 Ml Vial) 4 mg IVPUSH Q8H PRN PRN Reason: Nausea and Vomiting Pantoprazole Sodium (Pantoprazole Sodium 40 Mg/10 Ml Vial) 40 mg IVPUSH DAILY@0630 [facility] Last Admin: 01/31/25 06:42 Dose: 40 mg Documented By: ISAMAR Pharmacy Consult (Consult Rx Etoh Phenob Po Only) 1 each MISCELLANE ONCE PRN; Protocol PRN Reason: Consult order Phenobarbital (Phenobarbital 15 Mg Tablet) 45 mg PO BID [facility] Stop: 02/01/25 21:01 Last Admin: 01/31/25 08:44 Dose: 45 mg Documented By: JOANN Phenobarbital (Phenobarbital 15 Mg Tablet) 15 mg PO BID [facility] Stop: 02/03/25 21:01 Phenobarbital (Phenobarbital 15 Mg Tablet) 15 mg PO DAILY [facility] Stop: 02/05/25 09:01 Senna (Sennosides 8.6 Mg Tablet) 17.2 mg PO BEDTIME [facility] Last Admin: 01/30/25 20:46 Dose: Not Given Documented By: LOREN Non-Admin Reason: Administered by Alternate Route Sodium Chloride (0.9 % Sodium Chloride Flush 3 Ml Syringe) 3 ml IVFLUSH QSHIFT [facility] Last Admin: 01/31/25 14:18 Dose: 3 ml Documented By: VENICE Tamsulosin HCl (Tamsulosin Hcl 0.4 Mg Capsule) 0.4 mg PO BEDTIME [facility] Thiamine HCl (Thiamine Hcl 100 Mg Tablet) 250 mg PO BID [facility] Labs 01/31/25 06:39 01/31/25 06:39 Labs: Laboratory Results - last 24 hr 01/30/25 01/30/25 01/30/25 14:54 15:52 17:23 MCV MCH MCHC RDW Plt Count MPV Immature Gran % (Auto) Neut % (Auto) Lymph % (Auto) [place] % (Auto) Eos % (Auto) Baso % (Auto) Lymph # (Auto) [place] # (Auto) Eos # (Auto) Baso # (Auto) Abs Immat Gran (auto) Absolute Neuts (auto) Absolute Nucleated RBC Nucleated RBC % (auto) ESR 14 Anion Gap Estim Creat Clear Calc Estimated GFR POC Glucose 161 H Random Glucose Lactic Acid Lactic Acid F/U @ 2Hr 2.9 H* Lactic Acid F/U @ 4Hr Calcium Phosphorus 3.7 Magnesium 2.3 Total Bilirubin AST ALT Alkaline Phosphatase Total Creatine Kinase C-Reactive Protein 6.63 H Total Protein Albumin PSA Screen TSH 1.26 Free T4 1.46 Urine Color Urine Appearance Urine pH Ur Specific [place] Urine Protein Urine Glucose (UA) Urine Ketones Urine Blood Urine Nitrite Ur Leukocyte Esterase Urine RBC Urine WBC Ur Squamous Epith Cells Urine Bacteria Hyaline Casts Digoxin Hepatitis A IgM Ab Hep Bs Antigen Hep Bs Antibody Hep B Core Total Ab Hepatitis C Ab (EIA) 01/30/25 01/30/25 01/30/25 18:19 19:55 21:08 MCV MCH MCHC RDW Plt Count MPV Immature Gran % (Auto) Neut % (Auto) Lymph % (Auto) [place] % (Auto) Eos % (Auto) Baso % (Auto) Lymph # (Auto) [place] # (Auto) Eos # (Auto) Baso # (Auto) Abs Immat Gran (auto) Absolute Neuts (auto) Absolute Nucleated RBC Nucleated RBC % (auto) ESR Anion Gap Estim Creat Clear Calc Estimated GFR POC Glucose Random Glucose Lactic Acid 1.5 Lactic Acid F/U @ 2Hr Lactic Acid F/U @ 4Hr 1.9 Calcium Phosphorus Magnesium Total Bilirubin AST ALT Alkaline Phosphatase Total Creatine Kinase C-Reactive Protein Total Protein Albumin PSA Screen TSH Free T4 Urine Color Dark Yellow Urine Appearance Clear Urine pH 5.5 Ur Specific [place] 1.015 Urine Protein 100 (2+) H Urine Glucose (UA) Negative Urine Ketones Trace Urine Blood Large (3+) H Urine Nitrite Negative Ur Leukocyte Esterase Negative Urine RBC 11-20 H Urine WBC 0-5 Ur Squamous Epith Cells 0-2 Urine Bacteria None Seen Hyaline Casts 3-5 Digoxin 0.2 L Hepatitis A IgM Ab Hep Bs Antigen Hep Bs Antibody Hep B Core Total Ab Hepatitis C Ab (EIA) 01/31/25 01/31/25 06:39 07:26 MCV 93.7 MCH 33.2 H MCHC 35.5 RDW 13.2 Plt Count 219 D MPV 9.7 Immature Gran % (Auto) 0.5 H Neut % (Auto) 83.2 H Lymph % (Auto) 9.0 L [place] % (Auto) 7.1 Eos % (Auto) 0.1 Baso % (Auto) 0.1 Lymph # (Auto) 1.4 [place] # (Auto) 1.1 Eos # (Auto) 0.0 Baso # (Auto) 0.0 Abs Immat Gran (auto) 0.08 H Absolute Neuts (auto) 12.4 H Absolute Nucleated RBC 0.000 Nucleated RBC % (auto) 0.0 ESR Anion Gap 14 Estim Creat Clear Calc 78.6 Estimated GFR > 60 POC Glucose 112 Random Glucose 112 Lactic Acid Lactic Acid F/U @ 2Hr Lactic Acid F/U @ 4Hr Calcium 8.5 D Phosphorus Magnesium Total Bilirubin 1.3 H AST 123 H ALT 49 H Alkaline Phosphatase 67 Total Creatine Kinase 1420 H C-Reactive Protein Total Protein 5.6 L Albumin 3.1 L PSA Screen 11.17 H TSH Free T4 Urine Color Urine Appearance Urine pH Ur Specific [place] Urine Protein Urine Glucose (UA) Urine Ketones Urine Blood Urine Nitrite Ur Leukocyte Esterase Urine RBC Urine WBC Ur Squamous Epith Cells Urine Bacteria Hyaline Casts Digoxin Hepatitis A IgM Ab Nonreactive Hep Bs Antigen Negative Hep Bs Antibody NONREACTIVE Hep B Core Total Ab Nonreactive Hepatitis C Ab (EIA) Nonreactive Microbiology Microbiology Results: Microbiology 01/30/25 Unknown Urine Culture - Preliminary Urine Catheterized - Lopez Catheter No growth to date. Assessment and Plan (1) UTI (urinary tract infection): Status: Acute Assessment and Plan: 79-year-old male with past medical history of CAD, CVA, CABG x4, atrial fibrillation on Eliquis, childhood seizure, hypertension, depression, hyperlipidemia and alcohol abuse presents to the emergency room status post fall, down for approximately 2 day with evidence of rhabdomyolysis, UTI/leukoxytosis/ lactic acidosis, ETOH withdrawal, bilateral hydroceles with scrotal edema, parietal-occipital hematoma superficial and is being admitted. Rhabdomyolysis status post fall/ parietal-Occipital hematoma imrpoving with hydration hold statin UTI suspected/ Urinary retention/ Bilateral hydroceles with scrotal edema/ enlarged prostate with intravesicular extension -UA with reflex negative for nitrites, leukocytes esterase, WBCs and bacteria. -Lactic acid started on at 5, , then 2.9 and is currently 1.9. Leukocytosis of 21.9. Heart rate 100. Patient afebrile. Blood cultures pending. Low threshold to qualify this has sepsis. psa elevated plan:continue iv ceftriaxone,Urology consulted added flomax,finesteride. ETOH withdrawal/ Transaminitis/ history of hepatic steatosis mild tremers ciwa 1 on phenobarbital Atrial fibrillation/ systolic murmur/ hypertension/ hyperlipidemia holding lisinopril, Lasix as we are monitoring renal function secondary to rhabdo continue digoxin/coreg Depression Continue citalopram DVT prophylaxis: eliquis held due to hematoma on scalp . PPI: ordered Admit as inpatient for alcohol withdrawal, IV abx for uti, urology eval-Urinary retention/ Bilateral hydroceles with scrotal edema/ enlarged prostate . Quality Stroke Does the patient have a stroke diagnosis?: No VTE Prior VTE?: No VTE Risk Level:: Medical - moderate - high VTE Device Contraindication: N/A - Device Ordered VTE Drug Contraindication: N/A - Med Ordered
[2025-01-31] MEDS: Tamsulosin HCL 0.4 MG CAPSULE PO (20:11)
[2025-01-31] MEDS: Melatonin 3 MG TABLET 6 MG PO (20:11)
[2025-01-31] MEDS: Thiamine HCL 100 MG TABLET 250 MG PO (20:11)
[2025-01-31] MEDS: Sennosides 8.6 MG TABLET 17.2 MG PO (20:11)
[2025-02-01] VITALS (8 sets, daily range): BP systolic 124–164; BP diastolic 67–88; PULSE 60–71; RESP 16–18; TEMP 36.3–37.6; O2SAT 95–98; BMI 33.5
[2025-02-01] MEDS: Pantoprazole Sodium 40 MG/10 ML VIAL IVPUSH (05:39)
--- NOTE | 2025-02-01 07:51 | P.CDIM_ITS ---
PROVIDER RESPONSE TEXT: To clarify, the appropriate diagnosis supported by the clinical indicators: Acute QUERY TEXT: PHYSICIAN'S DOCUMENTATION REQUEST Date of Query: 02/01/2025 07:27 AM EDT Patient Name: González Lovett Admit Date: 01/30/2025 Dear Devi Rojas MD, A review of the medical record indicates additional documentation may be needed. Please review below and update the documentation accordingly. Clinical Indicators: H&P 01/31/25 - Presents to Ed s/p fall down approximately 2 days with evidence of rhabdo, UTI/leukocyt osis/lactic acidosis. Lactic acid started at 5 then 2.9 and currently 1.9. Clarify which of the following accurately represents the acuity of the Lactic acidosis: Possible options might include: Acute Chronic Other (explain) Clinically unable to determine (explain) Thank you, Daja Diop, CCS, CDIS Use of terms such as suspected, likely, concern for, or probable (associated with a specific diagnosi s that is being evaluated, monitored, or treated as if it exists) are acceptable and can be coded in the inpatient se tting, when documented at the time of discharge. Please use your independent medical judgment in providing your response. THIS QUERY IS PART OF THE PERMANENT MEDICAL RECORD
[2025-02-01] MEDS: Thiamine HCL 100 MG TABLET 250 MG PO ×2 (08:16→20:38)
[2025-02-01] MEDS: PHENobarbitaL 15 MG TABLET 45 MG PO ×2 (08:18→20:38)
[2025-02-01] MEDS: Escitalopram Oxalate 5 MG TABLET PO (08:19)
[2025-02-01] MEDS: Digoxin 0.125 MG TABLET PO (08:19)
[2025-02-01] MEDS: Folic Acid 1 MG TABLET PO (08:20)
[2025-02-01] MEDS: Finasteride 5 MG TABLET PO (08:20)
[2025-02-01] MEDS: carvediloL 12.5 MG TABLET PO (08:20)
[2025-02-01] MEDS: 0.9 % Sodium Chloride Flush 3 ML SYRINGE IVFLUSH ×3 (08:20→20:41)
[2025-02-01] MEDS: Lactated Ringers 1,000 ML 125 ML IVCONT (08:24)
--- NOTE | 2025-02-01 09:01 | HO.WOUND ---
Wound Consult: Initial 79yr old?male admitted to [facility] [place] on 01/30/25 - See progress notes and H&P for detailed history.? Wound consult placed for Coccyx.? Patient agreeable to assessment and photo documentation.? Coccyx and Intergluteal Etiology: ?Deep Tissue Injury with MASD ?Present on Admission Measurements: 2cm x 1cm Wound Bed: dark maroon purple nonblanchable tissue Drainage / Odor: None Edges: ? Mirrored Flor wound: MASD - IAD (Moisture Associated Skin Damage - Incontinecne Associated Dermatitis) ? No Induration, Fluctuance or Warmth noted Goals of Treatment: ? Off Load Pressure - Barrier cream to protect from moisture and friction Recommendations: 1. Turn and Reposition every 2 hours and as needed for patient comfort.? Use pillows or wedges to support off loading positions. 2. Off Load all bony prominences with use of pillows and heel boots if needed.? Apply Preventative foams where needed. ? 3. Monitor for incontinence and moisture control, use barrier creams when needed for prevention and treatment. 4. Provide adequate and supplemental nutrition.? 5. Order low air loss mattress. 6. When applicable maintain blood glucose levels per Providers order. Coccyx and Buttock - Off Load Pressure with Q2 hr turns and use of pillows - Cleanse with PH balance spray or wipes, pat dry. ?Apply thin layer of barrier cream to affected area.? Apply twice daily and Reapply thin layer PRN after each episode of incontinence. Re-consult wound care Nurse for wound deterioration or wound changes.
[2025-02-01 12:20] LABS: Anion Gap 9 (12-20); Blood Urea Nitrogen 20 mg/dL (9-16); Calcium 8.7 mg/dL (8.4-10.2); Carbon Dioxide 29 mmol/L (22-29); Chloride 103 mmol/L (96-108); Creatinine Clr Calc Pharmacy 72.3; Estimated Glomerular Filt Rate > 60; Glucose Random 120 mg/dL (60-115); Potassium 3.6 mmol/L (3.3-5.1); Sodium 137 mmol/L (135-145)
--- NOTE | 2025-02-01 15:26 | MHC.CLN ---
CONSULT PT WITH INCREASED NUTRITION RISK R/T PRESSURE INJURY PO INTAKE 50 & 100% X2 MEALS CARDIAC DIET IN PLACE RECOMMEND ADDING ENSURE MAX BID TO PROMOTE WOUND HEALING SUPP TO PROVIDE 300KCALS, 60G PROTEIN MONITOR PO INTAKE AND ENCOURAGE SUPPLEMENTS SEE FULL CLINICAL NUTRITION ASSESSMENT
--- NOTE | 2025-02-01 15:51 | P.PNIM_ITS ---
Subjective Subjective Date of Service: 02/01/25 Interval History: rhabdomylysis uti Review of Systems seems improving hr between 35-50 otherwise asymptomatic Review of Systems: Yes all other systems are reviewed and are negative Physical Exam 2 Vital Signs: Vital Signs: Last Vital Signs Temp 97.9 F 02/01/25 11:09 Pulse 60 02/01/25 13:49 Resp 18 02/01/25 11:09 BP 158/76 H 02/01/25 13:49 Pulse Ox 98 02/01/25 13:49 O2 Del Method Room Air 02/01/25 11:09 BMI result Body Mass Index 33.5 Appearance: Alert.? Oriented X3.? cvs: rrr, [id number]. res: air entry fair ,taisha or wheezing abd: no rebound or guarding ,nt, bs present. has lopez ext pulses present , no cyanosis. neuro: axo3 , nonfocal. Objective Data Active Medications Acetaminophen (Acetaminophen 325 Mg Tablet) 650 mg PO Q6H PRN PRN Reason: Pain, Mild 1-3,fever,headache Albuterol/Ipratropium (Albuterol/Iprat 2.5/0.5mg 3 Ml Ampul.Neb) 3 ml INHALE Q4H PRN PRN Reason: Shortness of Breath/Wheezing Calcium Carbonate (Calcium Carbonate 750 Mg Tab.Chew) 750 mg PO Q4H PRN PRN Reason: Heartburn Carvedilol (Carvedilol 12.5 Mg Tablet) 12.5 mg PO BID [facility]; Protocol Last Admin: 02/01/25 08:20 Dose: 12.5 mg Documented By: MOR Ceftriaxone Sodium (Ceftriaxone Sodium 1 Gm Vial) 1 gm IVPUSH Q24H [facility] Last Admin: 01/31/25 14:01 Dose: 1 gm Documented By: VENICE Digoxin (Digoxin 0.125 Mg Tablet) 0.125 mg PO DAILY [facility]; Protocol Last Admin: 02/01/25 08:19 Dose: 0.125 mg Documented By: MOR Escitalopram Oxalate (Escitalopram Oxalate 5 Mg Tablet) 5 mg PO DAILY [facility] Last Admin: 02/01/25 08:19 Dose: 5 mg Documented By: MOR Finasteride (Finasteride 5 Mg Tablet) 5 mg PO DAILY [facility] Last Admin: 02/01/25 08:20 Dose: 5 mg Documented By: MOR Folic Acid (Folic Acid 1 Mg Tablet) 1 mg PO DAILY [facility] Last Admin: 02/01/25 08:20 Dose: 1 mg Documented By: MOR Lactated Ringer's (Lr) 1,000 mls @ 125 mls/hr IVCONT .Q8H [facility] Last Admin: 02/01/25 08:24 Dose: 125 mls/hr Documented By: MOR Magnesium Hydroxide (Milk Of Magnesia 30 Ml Oral.Susp) 30 ml PO DAILY PRN PRN Reason: Constipation Melatonin (Melatonin 3 Mg Tablet) 6 mg PO BEDTIME [facility] Last Admin: 01/31/25 20:11 Dose: 6 mg Documented By: ANITA Ondansetron HCl (Ondansetron Hcl 4 Mg/2 Ml Vial) 4 mg IVPUSH Q8H PRN PRN Reason: Nausea and Vomiting Pantoprazole Sodium (Pantoprazole Sodium 40 Mg/10 Ml Vial) 40 mg IVPUSH DAILY@0630 [facility] Last Admin: 02/01/25 05:39 Dose: 40 mg Documented By: ANITA Pharmacy Consult (Consult Rx Etoh Phenob Po Only) 1 each MISCELLANE ONCE PRN; Protocol PRN Reason: Consult order Phenobarbital (Phenobarbital 15 Mg Tablet) 45 mg PO BID [facility] Stop: 02/01/25 21:01 Last Admin: 02/01/25 08:18 Dose: 45 mg Documented By: MOR Phenobarbital (Phenobarbital 15 Mg Tablet) 15 mg PO BID [facility] Stop: 02/03/25 21:01 Phenobarbital (Phenobarbital 15 Mg Tablet) 15 mg PO DAILY [facility] Stop: 02/05/25 09:01 Senna (Sennosides 8.6 Mg Tablet) 17.2 mg PO BEDTIME [facility] Last Admin: 01/31/25 20:11 Dose: 17.2 mg Documented By: ANITA Sodium Chloride (0.9 % Sodium Chloride Flush 3 Ml Syringe) 3 ml IVFLUSH QSHIFT [facility] Last Admin: 02/01/25 08:20 Dose: 3 ml Documented By: MOR Tamsulosin HCl (Tamsulosin Hcl 0.4 Mg Capsule) 0.4 mg PO BEDTIME [facility] Last Admin: 01/31/25 20:11 Dose: 0.4 mg Documented By: ANITA Thiamine HCl (Thiamine Hcl 100 Mg Tablet) 250 mg PO BID [facility] Last Admin: 02/01/25 08:16 Dose: 250 mg Documented By: MOR Labs 01/31/25 06:39 02/01/25 11:27 Labs: Laboratory Results - last 24 hr 02/01/25 11:27 Anion Gap 9 L Estim Creat Clear Calc 72.3 Estimated GFR > 60 Random Glucose 120 H Calcium 8.7 Total Creatine Kinase 529 H Microbiology Microbiology Results: Microbiology 01/30/25 Unknown Urine Culture - Final Urine Catheterized - Lopez Catheter No growth. 01/30/25 14:54 Blood Culture - Preliminary Blood - Venous No growth after 24 hours. 01/30/25 14:54 Blood Culture - Preliminary Blood - Venous No growth after 24 hours. Assessment and Plan (1) Alcohol use disorder, moderate, dependence: Status: Acute (2) UTI (urinary tract infection): Status: Acute Plan 79-year-old male with past medical history of CAD, CVA, CABG x4, atrial fibrillation on Eliquis, childhood seizure, hypertension, depression, hyperlipidemia and alcohol abuse presents to the emergency room status post fall, down for approximately 2 day with evidence of rhabdomyolysis, UTI/leukoxytosis/ lactic acidosis, ETOH withdrawal, bilateral hydroceles with scrotal edema, parietal-occipital hematoma superficial and is being admitted. Rhabdomyolysis status post fall/ parietal-Occipital hematoma imrpoving with hydration hold statin UTI suspected/ Urinary retention/ Bilateral hydroceles with scrotal edema/ enlarged prostate with intravesicular extension -UA with reflex negative for nitrites, leukocytes esterase, WBCs and bacteria. -Lactic acid started on at 5, , then 2.9 and is currently 1.9. Leukocytosis of 21.9. Heart rate 100. Patient afebrile. Blood cultures pending. Low threshold to qualify this has sepsis. psa elevated plan:continue iv ceftriaxone,Urology consulted added flomax,finesteride. ETOH withdrawal/ Transaminitis/ history of hepatic steatosis mild tremers ciwa 1 on phenobarbital Atrial fibrillation/ systolic murmur/ hypertension/ hyperlipidemia holding lisinopril, Lasix as we are monitoring renal function secondary to rhabdo hold digoxin/coreg tsh normal asymptomatic added cardiology eval Depression Continue citalopram DVT prophylaxis: eliquis held due to hematoma on scalp . PPI: ordered Admit as inpatient for alcohol withdrawal, IV abx for uti, urology eval-Urinary retention/ Bilateral hydroceles with scrotal edema/ enlarged prostate . Quality Stroke Does the patient have a stroke diagnosis?: No VTE Prior VTE?: No VTE Risk Level:: Medical - moderate - high VTE Device Contraindication: N/A - Device Ordered VTE Drug Contraindication: N/A - Med Ordered
--- NOTE | 2025-02-01 16:04 | MHC.CM.PN ---
EMR reviewed and per MD rounds, pt is not medically cleared for discharge due to management of ETOH withdrawal and UTI.
[2025-02-01] MEDS: cefTRIAXone sodium 1 GM VIAL IVPUSH (17:16)
[2025-02-01] MEDS: Sennosides 8.6 MG TABLET 17.2 MG PO (20:37)
[2025-02-01] MEDS: Melatonin 3 MG TABLET 6 MG PO (20:38)
[2025-02-01] MEDS: Tamsulosin HCL 0.4 MG CAPSULE PO (20:38)
[2025-02-02] VITALS (7 sets, daily range): BP systolic 131–166; BP diastolic 66–86; PULSE 53–80; RESP 16–20; TEMP 36.2–37.2; O2SAT 96–97
[2025-02-02] MEDS: Pantoprazole Sodium 40 MG/10 ML VIAL IVPUSH (05:51)
[2025-02-02] MEDS: Finasteride 5 MG TABLET PO (09:25)
[2025-02-02] MEDS: Thiamine HCL 100 MG TABLET 250 MG PO ×2 (09:25→20:04)
[2025-02-02] MEDS: 0.9 % Sodium Chloride Flush 3 ML SYRINGE IVFLUSH ×3 (09:25→20:08)
[2025-02-02] MEDS: Escitalopram Oxalate 5 MG TABLET PO (09:25)
[2025-02-02] MEDS: Folic Acid 1 MG TABLET PO (09:25)
[2025-02-02] MEDS: PHENobarbitaL 15 MG TABLET PO ×2 (09:25→20:05)
--- NOTE | 2025-02-02 14:07 | P.CONCA_ITS ---
History of Present Illness History of Present Illness Date of Service: 02/02/25 Requesting physician: Devi Rojas Chief complaint: ETOH withdrawal, rhabdomyolosis Narrative: [age] year gentleman with alcoholism presenting with fall. He has fallen before. He has scalp hematoma. He has been on Eliquis for anticoagulation for atrial fibrillation. He also was on digoxin and carvedilol. We have been asked to see him because he was noticed to be bradycardic on admission. Patient does not recall any falls. He is saying that he drinks 2 beers per day. His medications have been held in his heart rate has recovered completely. He is denying any active symptoms currently. Telemetry and EKGs reviewed. [facility] Past Medical History Medical History Hepatic steatosis Cerumen impaction Cervical spondylosis CVA (cerebral vascular accident) ETOH abuse Afib Surgical History Surgical History History of ankle surgery Hx of CABG Social History Social History Household Members: None Housing: Apartment Do you presently have visiting nurse or other home services: Yes (niece/patient care assistant 2- 3hrs a day) Alcohol intake: current Alcohol intake frequency: 0-2 drinks per day Alcohol type: beer Patient Tobacco Use Status: Never used Tobacco Advance Directives Date on File: 06/13/24 service: No Travel History Ebola Risk: Travel/Contact With Anyone From Affected Area/s: No Has Patient Experienced Ebola Symptoms: No Meds Allergies Allergy/AdvReac Type Severity Reaction Status Date / Time No Known Allergies Allergy Verified 01/30/25 13:49 Active Medications: Current Medications Acetaminophen (Acetaminophen 325 Mg Tablet) 650 mg PO Q6H PRN PRN Reason: Pain, Mild 1-3,fever,headache Albuterol/Ipratropium (Albuterol/Iprat 2.5/0.5mg 3 Ml Ampul.Neb) 3 ml INHALE Q4H PRN PRN Reason: Shortness of Breath/Wheezing Calcium Carbonate (Calcium Carbonate 750 Mg Tab.Chew) 750 mg PO Q4H PRN PRN Reason: Heartburn Carvedilol (Carvedilol 6.25 Mg Tablet) 6.25 mg PO BID [facility]; Protocol Ceftriaxone Sodium (Ceftriaxone Sodium 1 Gm Vial) 1 gm IVPUSH Q24H [facility] Last Admin: 02/01/25 17:16 Dose: 1 gm Escitalopram Oxalate (Escitalopram Oxalate 5 Mg Tablet) 5 mg PO DAILY [facility] Last Admin: 02/02/25 09:25 Dose: 5 mg Finasteride (Finasteride 5 Mg Tablet) 5 mg PO DAILY [facility] Last Admin: 02/02/25 09:25 Dose: 5 mg Folic Acid (Folic Acid 1 Mg Tablet) 1 mg PO DAILY [facility] Last Admin: 02/02/25 09:25 Dose: 1 mg Magnesium Hydroxide (Milk Of Magnesia 30 Ml Oral.Susp) 30 ml PO DAILY PRN PRN Reason: Constipation Melatonin (Melatonin 3 Mg Tablet) 6 mg PO BEDTIME [facility] Last Admin: 02/01/25 20:38 Dose: 6 mg Ondansetron HCl (Ondansetron Hcl 4 Mg/2 Ml Vial) 4 mg IVPUSH Q8H PRN PRN Reason: Nausea and Vomiting Pantoprazole Sodium (Pantoprazole Sodium 40 Mg/10 Ml Vial) 40 mg IVPUSH DAILY@0630 [facility] Last Admin: 02/02/25 05:51 Dose: 40 mg Pharmacy Consult (Consult Rx Etoh Phenob Po Only) 1 each MISCELLANE ONCE PRN; Protocol PRN Reason: Consult order Phenobarbital (Phenobarbital 15 Mg Tablet) 15 mg PO BID [facility] Stop: 02/03/25 21:01 Last Admin: 02/02/25 09:25 Dose: 15 mg Phenobarbital (Phenobarbital 15 Mg Tablet) 15 mg PO DAILY [facility] Stop: 02/05/25 09:01 Senna (Sennosides 8.6 Mg Tablet) 17.2 mg PO BEDTIME [facility] Last Admin: 02/01/25 20:37 Dose: 17.2 mg Sodium Chloride (0.9 % Sodium Chloride Flush 3 Ml Syringe) [address] [facility] Last Admin: 02/02/25 09:25 Dose: 3 ml Tamsulosin HCl (Tamsulosin Hcl 0.4 Mg Capsule) 0.4 mg PO BEDTIME [facility] Last Admin: 02/01/25 20:38 Dose: 0.4 mg Thiamine HCl (Thiamine Hcl 100 Mg Tablet) 250 mg PO BID [facility] Last Admin: 02/02/25 09:25 Dose: 250 mg Home Medications ?Medication ?Instructions ?Recorded ?Confirmed ?Last Taken ?Type amlodipine 10 mg tablet 10 mg PO DAILY 01/30/25 01/30/25 01/27/25 History apixaban 5 mg tablet (Eliquis) 5 mg PO BID 01/30/25 01/30/25 01/27/25 History aspirin 81 mg tablet,delayed 81 mg PO DAILY 01/30/25 01/30/25 01/27/25 History release atorvastatin 40 mg tablet 40 mg PO DAILY 01/30/25 01/30/25 01/27/25 History carvedilol 12.5 mg tablet 12.5 mg PO BID 01/30/25 01/30/25 01/27/25 History citalopram 10 mg tablet 10 mg PO DAILY 01/30/25 01/30/25 01/27/25 History digoxin 125 mcg (0.125 mg) tablet 125 mcg PO DAILY 01/30/25 01/30/25 01/27/25 History furosemide 40 mg tablet 40 mg PO DAILY 01/30/25 01/30/25 01/27/25 History lisinopril 40 mg tablet 40 mg PO DAILY 01/30/25 01/30/25 01/27/25 History melatonin 5 mg tablet 5 mg PO BEDTIME 01/30/25 01/30/25 01/27/25 History thiamine HCl (vitamin B1) 250 mg 250 mg PO BID 01/30/25 01/30/25 01/27/25 History tablet (Vitamin B-1) Physical Exam 2 Vital Signs: Vital Signs: Last Vital Signs Temp 97.1 F 02/02/25 07:58 Pulse 80 02/02/25 11:37 Resp 20 02/02/25 11:37 BP 157/76 H 02/02/25 11:37 Pulse Ox 96 02/02/25 11:37 O2 Del Method Room Air 02/02/25 11:37 BMI result Body Mass Index 33.5 GENERAL APPEARANCE: in no acute distress, pleasant. NECK: no carotid bruit, no jugular venous distention. SKIN: no suspicious lesions, warm and dry. HEART: no murmurs, irregular rate and rhythm. LUNGS: clear to auscultation bilaterally. ABDOMEN: soft, nontender. EXTREMITIES: no edema. PERIPHERAL PULSES: equal. NEUROLOGIC: No gross deficits, AAO X 3 Objective Labs and Meds 01/31/25 06:39 02/01/25 11:27 Assessment and Plan (1) Alcohol use disorder, moderate, dependence: Status: Acute (2) Bradycardia: Status: Acute Plan 79-year-old gentleman with alcoholism and atrial fibrillation who was being treated for rate control strategy presenting with fall. He has fallen before and there is concern that this is related to intoxication with alcohol. On this admission he was noticed to be bradycardic also. His medications were held and he has recovered completely. Difficult to say whether bradycardia played a role but overall he is admissions previously has been related to intoxication. I think digoxin should be discontinued. Carvedilol can be resumed at the same dose 12.5 mg twice a day. In terms of Eliquis use, he continues to drink and has fallen few times already. He has a scalp hematoma. I think anticoagulation use safely is not possible in this patient currently and we should stop the Eliquis on discharge. Thank you for allowing me to participate in the care of your patient. Please feel free to contact me if you have any questions. Procedures Date of Service Date of Service: 02/02/25
[2025-02-02] MEDS: carvediloL 6.25 MG TABLET PO ×2 (14:30→20:05)
[2025-02-02] MEDS: cefTRIAXone sodium 1 GM VIAL IVPUSH (14:31)
--- NOTE | 2025-02-02 18:43 | P.PNIM_ITS ---
Subjective Subjective Date of Service: 02/02/25 Interval History: alcohol withdrawals bradycardia Review of Systems Mild tremor present No nausea or vomiting Review of Systems: Yes all other systems are reviewed and are negative Physical Exam 2 Vital Signs: Vital Signs: Last Vital Signs Temp 98.9 F 02/02/25 16:00 Pulse 75 02/02/25 16:00 Resp 16 02/02/25 16:00 BP 166/86 H 02/02/25 16:00 Pulse Ox 97 02/02/25 16:00 O2 Del Method Room Air 02/02/25 16:00 BMI result Body Mass Index 33.5 Appearance: Alert.? Oriented X3.? cvs: rrr, [id number]. res: air entry fair ,taisha or wheezing abd: no rebound or guarding ,nt, bs present. has lopez ext pulses present , no cyanosis. neuro: axo3 , nonfocal. Objective Data Active Medications Acetaminophen (Acetaminophen 325 Mg Tablet) 650 mg PO Q6H PRN PRN Reason: Pain, Mild 1-3,fever,headache Albuterol/Ipratropium (Albuterol/Iprat 2.5/0.5mg 3 Ml Ampul.Neb) 3 ml INHALE Q4H PRN PRN Reason: Shortness of Breath/Wheezing Calcium Carbonate (Calcium Carbonate 750 Mg Tab.Chew) 750 mg PO Q4H PRN PRN Reason: Heartburn Carvedilol (Carvedilol 6.25 Mg Tablet) 6.25 mg PO BID [facility]; Protocol Last Admin: 02/02/25 14:30 Dose: 6.25 mg Documented By: AMINATA Ceftriaxone Sodium (Ceftriaxone Sodium 1 Gm Vial) 1 gm IVPUSH Q24H [facility] Last Admin: 02/02/25 14:31 Dose: 1 gm Documented By: AMINATA Escitalopram Oxalate (Escitalopram Oxalate 5 Mg Tablet) 5 mg PO DAILY [facility] Last Admin: 02/02/25 09:25 Dose: 5 mg Documented By: AMINATA Finasteride (Finasteride 5 Mg Tablet) 5 mg PO DAILY [facility] Last Admin: 02/02/25 09:25 Dose: 5 mg Documented By: AMINATA Folic Acid (Folic Acid 1 Mg Tablet) 1 mg PO DAILY [facility] Last Admin: 02/02/25 09:25 Dose: 1 mg Documented By: AMINATA Magnesium Hydroxide (Milk Of Magnesia 30 Ml Oral.Susp) 30 ml PO DAILY PRN PRN Reason: Constipation Melatonin (Melatonin 3 Mg Tablet) 6 mg PO BEDTIME [facility] Last Admin: 02/01/25 20:38 Dose: 6 mg Documented By: MARILEE Ondansetron HCl (Ondansetron Hcl 4 Mg/2 Ml Vial) 4 mg IVPUSH Q8H PRN PRN Reason: Nausea and Vomiting Pantoprazole Sodium (Pantoprazole Sodium 40 Mg/10 Ml Vial) 40 mg IVPUSH DAILY@0630 [facility] Last Admin: 02/02/25 05:51 Dose: 40 mg Documented By: NEELIMA Pharmacy Consult (Consult Rx Etoh Phenob Po Only) 1 each MISCELLANE ONCE PRN; Protocol PRN Reason: Consult order Phenobarbital (Phenobarbital 15 Mg Tablet) 15 mg PO BID [facility] Stop: 02/03/25 21:01 Last Admin: 02/02/25 09:25 Dose: 15 mg Documented By: AMINATA Phenobarbital (Phenobarbital 15 Mg Tablet) 15 mg PO DAILY [facility] Stop: 02/05/25 09:01 Senna (Sennosides 8.6 Mg Tablet) 17.2 mg PO BEDTIME [facility] Last Admin: 02/01/25 20:37 Dose: 17.2 mg Documented By: MARILEE Sodium Chloride (0.9 % Sodium Chloride Flush 3 Ml Syringe) 3 ml IVFLUSH QSHIFT [facility] Last Admin: 02/02/25 14:31 Dose: 3 ml Documented By: AMINATA Tamsulosin HCl (Tamsulosin Hcl 0.4 Mg Capsule) 0.4 mg PO BEDTIME [facility] Last Admin: 02/01/25 20:38 Dose: 0.4 mg Documented By: MARILEE Thiamine HCl (Thiamine Hcl 100 Mg Tablet) 250 mg PO BID [facility] Last Admin: 02/02/25 09:25 Dose: 250 mg Documented By: AMINATA Labs 01/31/25 06:39 02/01/25 11:27 Microbiology Microbiology Results: Microbiology 01/30/25 14:54 Blood Culture - Preliminary Blood - Venous No growth after 48 hours. 01/30/25 14:54 Blood Culture - Preliminary Blood - Venous No growth after 48 hours. Assessment and Plan (1) Alcohol use disorder, moderate, dependence: Status: Acute (2) UTI (urinary tract infection): Status: Acute Plan 79-year-old male with past medical history of CAD, CVA, CABG x4, atrial fibrillation on Eliquis, childhood seizure, hypertension, depression, hyperlipidemia and alcohol abuse presents to the emergency room status post fall, down for approximately 2 day with evidence of rhabdomyolysis, UTI/leukoxytosis/ lactic acidosis, ETOH withdrawal, bilateral hydroceles with scrotal edema, parietal-occipital hematoma superficial and is being admitted. Rhabdomyolysis status post fall/ parietal-Occipital hematoma imrpoving with hydration hold statin UTI suspected/ Urinary retention/ Bilateral hydroceles with scrotal edema/ enlarged prostate with intravesicular extension -UA with reflex negative for nitrites, leukocytes esterase, WBCs and bacteria. -Lactic acid started on at 5, , then 2.9 and is currently 1.9. Leukocytosis of 21.9. Heart rate 100. Patient afebrile. Blood cultures pending. Low threshold to qualify this has sepsis. psa elevated plan:continue iv ceftriaxone,Urology consulted added flomax,finesteride. ETOH withdrawal/ Transaminitis/ history of hepatic steatosis mild tremers ciwa 1 on phenobarbital Atrial fibrillation/ systolic murmur/ hypertension/ hyperlipidemia holding lisinopril, Lasix as we are monitoring renal function secondary to rhabdo hold digoxin started coreg at lower dose tsh normal asymptomatic added cardiology eval Depression Continue citalopram DVT prophylaxis: eliquis held due to hematoma on scalp . PPI: ordered Admit as inpatient for alcohol withdrawal, IV abx for uti, urology eval-Urinary retention/ Bilateral hydroceles with scrotal edema/ enlarged prostate . Quality Stroke Does the patient have a stroke diagnosis?: No VTE Prior VTE?: No VTE Risk Level:: Medical - moderate - high VTE Device Contraindication: N/A - Device Ordered VTE Drug Contraindication: N/A - Med Ordered
[2025-02-02] MEDS: Sennosides 8.6 MG TABLET 17.2 MG PO (20:04)
[2025-02-02] MEDS: Tamsulosin HCL 0.4 MG CAPSULE PO (20:04)
[2025-02-02] MEDS: Melatonin 3 MG TABLET 6 MG PO (20:05)
[2025-02-03 03:34] VITALS: BP 134/72; PULSE 56; RESP 16; TEMP 36.2; O2SAT 98
[2025-02-03] MEDS: Pantoprazole Sodium 40 MG/10 ML VIAL IVPUSH (05:54)
[2025-02-03 07:46] VITALS: BP 162/91; PULSE 65; RESP 20; TEMP 36.4; O2SAT 98
[2025-02-03] MEDS: carvediloL 6.25 MG TABLET PO (09:31)
[2025-02-03] MEDS: Escitalopram Oxalate 5 MG TABLET PO (09:31)
[2025-02-03] MEDS: Folic Acid 1 MG TABLET PO (09:31)
[2025-02-03] MEDS: Finasteride 5 MG TABLET PO (09:31)
[2025-02-03] MEDS: Thiamine HCL 100 MG TABLET 250 MG PO (09:33)
[2025-02-03] MEDS: PHENobarbitaL 15 MG TABLET PO (09:33)
[2025-02-03] MEDS: 0.9 % Sodium Chloride Flush 3 ML SYRINGE IVFLUSH (09:34)
[2025-02-03 10:30] VITALS: BP 162/91; PULSE 65; O2SAT 98
[2025-02-03 11:23] VITALS: BP 141/67; PULSE 64; RESP 20; TEMP 36.1; O2SAT 97
--- NOTE | 2025-02-03 11:38 | MHC.CM.PN ---
Addendum entered by Olive Garner RN 02/03/25 11:55: CLARIFICATION PT WILL HAVE [facility] AT 4PM D/T [facility] PLAN. Addendum entered by Olive Garner RN 02/03/25 11:39: CM CONTACTED PT'S SISTER/HCP TERRY TO UPDATE HER ON DC PLAN Original Note: IMM 02/03/25 DELIVERED TO BEDSIDE, PT MEDICALLY CLEARED TO [facility]
--- NOTE | 2025-02-03 13:24 | MHC.CLN ---
F/U PT WITH INCREASED NUTRITION RISK R/T PRESSURE INJURY PO INTAKE 50 -100% CARDIAC DIET IN PLACE PT RECEIVING ENSURE MAX BID TO PROMOTE WOUND HEALING SUPP PROVIDES 300KCALS, 60G PROTEIN MONITOR PO INTAKE AND ENCOURAGE SUPPLEMENTS
[2025-02-03 15:15] VITALS: BP 155/74; PULSE 80; RESP 18; TEMP 37.1; O2SAT 94
--- NOTE | 2025-02-03 15:42 | PM.DS ---
DS: Providers Provider Date of Service: 02/03/25 Date of admission: 01/30/25 18:56 Date of discharge: 02/03/25 Primary care physician: AUSTIN Koch Consults: 01/30/25 19:22 Consult to Urology Routine Consulting Provider: [facility] Reason for consultation: B hydrocele scrotal edema, enlarged prostate 01/30/25 20:46 Addiction Medicine Provider Routine Consulting Provider: Addiction Covering Reason for consultation: alcohol use disorder Has provider been notified: Yes 02/01/25 00:37 Consult to Wound Care Routine Reason for consultation: Coccyx 02/01/25 12:08 Consult to Cardiology Routine Consulting Provider: [facility] Reason for consultation: bradycardia and fall Has provider been notified: No Attending physician on discharge: Devi Rojas Discharging clinician: Devi Rojas DS: Diagnosis Discharge Diagnosis (1) Alcohol use disorder, moderate, dependence: Status: Acute (2) UTI (urinary tract infection): Status: Acute DS: Summary Hospital Course Hospital Course: HPI:79-year-old male with past medical history of CAD, CABG x4, atrial fibrillation on Eliquis, hypertension, depression, hyperlipidemia and alcohol abuse was brought into the emergency room via 911 after being 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 Patient is poor historian current currently, noting withdrawal from alcohol but states that he did fall and then fell asleep on the floor and was unable to get back up. Pt does not wear lifeline device and did not have cell phone close by. There was incontinence at the scene with a strong odor of urine. Patient has no memory of events prior to falling. Patient states he normally drinks anywhere from 3-4 beers per day for over 30 years. Per report, sister had removed the alcohol approximately 2-3 days prior. Patient states he was feeling suicidal approximately 2 weeks ago and today he is not feeling suicidal. Patient denies seizures associated with alcohol withdrawal. Patient did have a seizure at age 12 but no further seizure activity. Pt is not sure why the seizure occurred. Pt does not currently drive. CT head notes parieto-occipital subgaleal scalp fluid collection, likely evolving hematoma. Not appreciated on exam, will hold eliquis. Reviewed with attending Dr Berry, superficial and will reduce. No need for neuro consult. Neuro exam reassuring overall. Patient currently in AFib rate 100 with obvious hx based on med rec. Patient likely did not take his usual meds over the last 48 hours. Pt currently denies chest pain, SOB at rest or abdomonal/ groin pain. Incidentally, CT of the abdomen and pelvis notes mild bilateral hydro ureteronephrosis and bilateral hydroceles with no soft tissue gas and an enlarged prostate 4.5 cm with mild intravesicular extension. Patient does have remarkable scrotal edema bilaterally and patient states he believes that edema has been there for some time. Lopez was placed in ED due to urinary retention issues. Urine culture pending. Blood cultures pending. LA 5, then 2.9. Pt afebrile. Patient started on ceftriaxone in the emergency department. CXR negative for opacity, consolidation, pulmionary edema or pleural [id number]. Total creatinine kinase 3245. Patient has received at least 2 L of LR and will continue on hourly infusion. No evidence of visual myoglobin seen in Lopez catheter bag. No obvious bruising or hematoma on torso or legs. Hospital course: 79y/o F with past medical history of CAD, CVA, CABG x4, atrial fibrillation on Eliquis, childhood seizure, hypertension, depression, hyperlipidemia and alcohol abuse presents to the emergency room status post fall, down for approximately 2 day with evidence of rhabdomyolysis, UTI/leukoxytosis/ lactic acidosis, ETOH withdrawal, bilateral hydroceles with scrotal edema, parietal-occipital hematoma superficial and is being admitted: Patient was admitted for rhabdomyolysis status post fall: Patient was given hydration and rhabdomyolysis seems to be improved significantly. Encouraged for hydration. Alcohol withdrawal: Treated with phenobarb protocol, seems to improved. UTI suspected/ Urinary retention/ Bilateral hydroceles with scrotal edema/ enlarged prostate with intravesicular extension: Had leukocytosis, blood culture negative at 48 hour, urine culture also negative.blood culture also negative . leucocytosis seems reactive. Acute lactic acidosis and JAQUI possibly due to urinary retention-seems to be improved with hydration, Lopez . UA shows no bacteriuria or pyuria, initially patient was started on antibiotics, Flomax and Proscar added, scrotal ultrasound was done(has Bilateral hydroceles, large volume on the right scrotal sac and moderate volume on the left side)-reviewed with Urology: Recommended scrotal elevation, continue Proscar and Flomax. Patient has Lopez consider voiding trial in next 24-48 hours, if fails then patient need Lopez and outpatient urology evaluation. Supported swelling seems to be improved significantly. Bradycardia : seen by cardiology-digoxin stopped ,continue coreg. tsh levels normal. afib: hr seems better , discussed with the family because patient falling every other week and still no plan to stop alcohol, also has parietal-Occipital hematoma: His healthcare proxy Ms. 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 Patient will benefit from less than 30 day stay plan: Stopped digoxin Hold Eliquis until his sister plan with Cardiology for further use. Continue Flomax and Proscar, voiding trial in next 24-48 hours if still have urinary retention then may need Lopez Patient needs to follow-up with Dr. Smyth office urology. Less likely UTI-since urine culture is negative, and UA was also not significant pyuria/bacteriuria. Patient was strongly advised to abstain from alcohol, but he still does not have much plan as per the patient. Above management discussed with the patient and his sister in detail length-they both understand and in agreement with the above plan, total time spent 40 minute. All questions answered. Staff was present during conversation. Time Attestation Total time managing care of this patient today: 40 mintues. Discharge Coordination Time (in mins): 40min Quality: Safe Use of Opioids Does Pt have an Active Cancer Diagnosis on the Problem List?: No Quality: Stroke Does the patient have a stroke diagnosis?: No Physical Exam Vital Signs: Vital Signs: Last Vital Signs Temp 98.7 F 02/03/25 15:15 Pulse 80 02/03/25 15:15 Resp 18 02/03/25 15:15 BP 155/74 H 02/03/25 15:15 Pulse Ox 94 02/03/25 15:15 O2 Del Method Room Air 02/03/25 15:15 BMI result Body Mass Index 33.5 Appearance: Alert.? Oriented X3.? cvs: rrr, [id number]. res: air entry fair ,taisha or wheezing abd: no rebound or guarding ,nt, bs present. Gu-has lopez,scrotal edema somewhat improving ext pulses present , no cyanosis. neuro: axo3 , nonfocal. DS: Data Data Completed and Pending Labs on day of discharge: Preliminary micro results at discharge 01/30/25 14:54 Blood Culture - Preliminary Blood - Venous No growth after 48 hours. 01/30/25 14:54 Blood Culture - Preliminary Blood - Venous No growth after 48 hours. Imaging Chest x-ray: Radiologist's impression: ITS Impressions Ankle X-Ray 01/30/25 14:53 IMPRESSION: Degenerative changes without acute fracture or dislocation. Status post open reduction internal fixation of prior ankle fracture. Atherosclerosis disease, peripheral. Electronically signed by: Arias Hagen MD 01/30/2025 03:34 PM EDT RP Ankle X-Ray 01/30/25 14:53 IMPRESSION: No acute fracture or dislocation. Atherosclerosis disease, peripheral. Degenerative changes. Electronically signed by: Arias Hagen MD 01/30/2025 03:30 PM EDT RP Cervical Spine CT 01/30/25 14:53 IMPRESSION: 1. No CT evidence of acute cervical spine fracture or injury. 2. Extensive degenerative spondylosis of the cervical spine. 3. Ancillary findings as discussed. Electronically signed by: Fausto Rogers MD 01/30/2025 04:04 PM EDT RP Foot X-Ray 01/30/25 14:53 IMPRESSION: Severe degenerative changes seen involving the first metatarsophalangeal joint. No acute fracture or dislocation. Atherosclerosis disease, peripheral. Electronically signed by: Arias Hagen MD 01/30/2025 03:33 PM EDT RP Head CT 01/30/25 15:37 IMPRESSION: 1. No acute intracranial abnormality. 2. Moderate to severe small vessel ischemic changes, and numerous old lacunar type infarctions in the right cerebellum and bilateral gangliocapsular regions. 3. There is a parieto-occipital subgaleal scalp fluid collection, likely evolving hematoma. 4. Cerumen impaction in both EACs. Electronically signed by: Fausto Rogers MD 01/30/2025 03:51 PM EDT RP Chest X-Ray 01/30/25 15:55 IMPRESSION: No acute airspace disease. Acute intra-abdominal process cannot be excluded. Electronically signed by: Arias Hagen MD 01/30/2025 04:19 PM EDT RP Scrotum Ultrasound 01/31/25 17:04 IMPRESSION: Bilateral hydroceles, large volume on the right scrotal sac and moderate volume on the left side. No testicular torsion or testicular mass. No varicocele. Electronically signed by: Arias Hagen MD 02/01/2025 08:34 AM EDT RP Scrotum Ultrasound 01/31/25 17:04 IMPRESSION: Bilateral hydroceles, large volume on the right scrotal sac and moderate volume on the left side. No testicular torsion or testicular mass. No varicocele. Electronically signed by: Arias Hagen MD 02/01/2025 08:34 AM EDT RP Discharge Plan Discharge Anticipated Discharge Date/Time: 02/03/25 15:07 Patient Disposition: [facility] Discharge Diagnosis: Alcohol withdrawal, bradycardia, UTI, rhabdomyolysis and fall. Referrals: [facility] [Outside] - 1 Day (SHORT TERM REHAB) Lien Patterson MD [Physician] - 2 Weeks Av Weathers PA [Primary Care Provider] - 1 Week Discharge Medications: New finasteride 5 mg Tablet 5 mg PO DAILY Qty: 1 0RF folic acid 1 mg Tablet 1 mg PO DAILY Qty: 1 0RF tamsulosin 0.4 mg Capsule 0.4 mg PO BEDTIME Qty: 1 0RF Continued furosemide 40 mg tablet 40 mg PO DAILY atorvastatin 40 mg tablet 40 mg PO DAILY carvedilol 12.5 mg tablet 12.5 mg PO BID citalopram 10 mg tablet 10 mg PO DAILY digoxin 125 mcg (0.125 mg) tablet 125 mcg PO DAILY lisinopril 40 mg tablet 40 mg PO DAILY thiamine HCl (vitamin B1) [Vitamin B-1] 250 mg Tablet 250 mg PO BID aspirin 81 mg Tablet,Delayed Release (Dr/Ec) 81 mg PO DAILY amlodipine 10 mg tablet 10 mg PO DAILY melatonin 5 mg Tablet 5 mg PO BEDTIME Held Eliquis 5 mg tablet 5 mg PO BID Hold Instructions: Resume on 03/06/25. Discharge Orders: Discharge Order (Routine); Ordered 02/03/25 Ordered By: Devi Rojas Diet: Advance to usual diet Activity on Discharge: As tolerated Stand Alone Forms: Patient Portal Discharge page Print Language: [place] Citizen Care Plan Goals: 79y/o F with past medical history of CAD, CVA, CABG x4, atrial fibrillation on Eliquis, childhood seizure, hypertension, depression, hyperlipidemia and alcohol abuse presents to the emergency room status post fall, down for approximately 2 day with evidence of rhabdomyolysis, UTI/leukoxytosis/ lactic acidosis, ETOH withdrawal, bilateral hydroceles with scrotal edema, parietal-occipital hematoma superficial and is being admitted: Patient was admitted for rhabdomyolysis status post fall: Patient was given hydration and rhabdomyolysis seems to be improved significantly. Encouraged for hydration. Alcohol withdrawal: Treated with phenobarb protocol, seems to improved. UTI suspected/ Urinary retention/ Bilateral hydroceles with scrotal edema/ enlarged prostate with intravesicular extension: Had leukocytosis, blood culture negative at 48 hour, urine culture also negative. Acute lactic acidosis and JAQUI possibly due to urinary retention-seems to be improved with hydration, Lopez . UA shows no bacteriuria or pyuria, initially patient was started on antibiotics, Flomax and Proscar added, scrotal ultrasound was done-reviewed with Urology: Recommended scrotal elevation, continue Proscar and Flomax. Patient has Lopez consider voiding trial in next 24-48 hours, if fails then patient need Lopez and outpatient urology evaluation. Supported swelling seems to be improved significantly. Bradycardia : seen by cardiology-digoxin stopped ,continue coreg. tsh levels normal. afib: hr seems better , discussed with the family because patient falling every other week and still no plan to stop alcohol, also has parietal-Occipital hematoma: His healthcare proxy Ms. 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 Health Concerns: As above. Plan of Treatment: As above. Assessment: As above.
[2025-02-03] MEDS: cefTRIAXone sodium 1 GM VIAL IVPUSH (15:55)
--- NOTE | 2025-02-03 17:11 | P.CDIM_ITS ---
PROVIDER RESPONSE TEXT: To clarify, the appropriate diagnosis supported by the clinical indicators: Deep tissue injury coccyx and intergluteal: dti QUERY TEXT: PHYSICIAN'S DOCUMENTATION REQUEST Date of Query: 02/03/2025 09:41 AM EDT Patient Name: González Lovett Admit Date: 01/30/2025 Dear Devi Rojas MD, A review of the medical record indicates additional documentation may be needed. Please review below and update the documentation accordingly. Clinical Indicators: Wound care notes 02/01/25 -Deep tissue injury coccyx and intergluteal - Present on admission. Dark maroon purple non-blanchable tissue. Off load pressure - Barrier cream to protect from moisture and friction. Based on the above, could you please provide further information regarding the ulcer/wound/injury: Deep tissue injury coccyx and intergluteal possible, probable, suspected, cannot rule out etc. Other specified Please specify the location and laterality of the ulcer/wound Other (explain) Clinically unable to determine (explain) Thank you, Daja Diop, CCS, CDIS Use of terms such as suspected, likely, concern for, or probable (associated with a specific diagnosi s that is being evaluated, monitored, or treated as if it exists) are acceptable and can be coded in the inpatient se tting, when documented at the time of discharge. Please use your independent medical judgment in providing your response. THIS QUERY IS PART OF THE PERMANENT MEDICAL RECORD
--- NOTE | 2025-02-03 17:17 | P.CDIM_ITS ---
PROVIDER RESPONSE TEXT: To clarify, the appropriate diagnosis supported by the clinical indicators: Persistent atrial fibrillation QUERY TEXT: PHYSICIAN'S DOCUMENTATION REQUEST Date of Query: 02/03/2025 12:18 PM EDT Patient Name: González Lovett Admit Date: 01/30/2025 Dear Devi Rojas MD, A review of the medical record indicates additional documentation may be needed. Please review below and update the documentation accordingly. Clinical Indicators: Progress notes and H&P: Atrial fibrillation/systolic murmur/hypertension/hyperlipidemia. Patiently currently in Afib rate 100 with obvious hs based on med rec. Hold Digoxin Started Coreg at lower dose. Asymptomatic Cardiology evaluation - On admission he was noticed to be bradycardic. Stop Eliquis, he continues to drink and has fallen a few times already. If possible, please provide further specificity regarding atrial fibrillation, such as: Paroxysmal atrial fibrillation Persistent atrial fibrillation Long lasting persistent atrial fibrillation Permanent atrial fibrillation Other (explain) Clinically unable to determine (explain) Thank you, Daja Diop, CCS, CDIS Use of terms such as suspected, likely, concern for, or probable (associated with a specific diagnosi s that is being evaluated, monitored, or treated as if it exists) are acceptable and can be coded in the inpatient se tting, when documented at the time of discharge. Please use your independent medical judgment in providing your response. THIS QUERY IS PART OF THE PERMANENT MEDICAL RECORD
== END 2025-02-03 19:24 | disposition skilled nursing facility (03) | DRG 690 ==
LOC: HO.ED 16:57 → HO.EDOVER 19:05 → HO.IMC 19:19
PROVIDERS: Admitting Provider Nurse Practitioner Family; Emergency Provider Emergency Medicine; PCP Physician Assistant Medical; Visit Provider Internal Medicine
DX: N13.6 Pyonephrosis (principal); M62.82 Rhabdomyolysis; F10.239 Alcohol dependence with withdrawal, unspecified; E87.21 Acute metabolic acidosis; I48.19 Other persistent atrial fibrillation; F32.A Depression, unspecified; N40.1 Benign prostatic hyperplasia with lower urinary tract symptoms; R33.8 Other retention of urine; N43.3 Hydrocele, unspecified; I10 Essential (primary) hypertension; S00.03XA Contusion of scalp, initial encounter; W19.XXXA Unspecified fall, initial encounter; E78.5 Hyperlipidemia, unspecified; L24.A9 Irritant contact dermatitis due friction or contact with other specified body fluids; L89.156 Pressure-induced deep tissue damage of sacral region; K76.0 Fatty (change of) liver, not elsewhere classified; E86.0 Dehydration; I25.10 Atherosclerotic heart disease of native coronary artery without angina pectoris; Z95.1 Presence of aortocoronary bypass graft; Z79.01 Long term (current) use of anticoagulants; Z79.82 Long term (current) use of aspirin; Z79.899 Other long term (current) drug therapy
CPT/HCPCS: 36415; 70450; 71045; 72125; 73600; 73610; 73630; 74176; 76870; 80048; 80053; 80076; 80162; 80307; 81001; 82550; 82947; 83605; 83690; 83735; 83880; 84100; 84153; 84439; 84443; 84484; 85025; 85610; 85652; 86140; 86704; 86706; 86709; 86803; 87040; 87086; 87340; 93005; 93306; 93975; 97110; 97116; 97162; 97530; 99285; J0696; J2470; J2560; J7120; Q9957

== ENCOUNTER → 2025-01-30 14:32 | Outpatient (BNV) | payer MEDICARE, SELFPAY | PROVIDERS: Admitting Provider Nurse Practitioner Family; Emergency Provider Emergency Medicine; PCP Physician Assistant Medical; Visit Provider Internal Medicine Cardiovascular Disease | DX: I48.91 Unspecified atrial fibrillation (principal) | CPT/HCPCS: 93010 ==

== ENCOUNTER → 2025-01-30 14:53 | Outpatient (BNV) | payer MEDICARE, SELFPAY | PROVIDERS: Emergency Provider Emergency Medicine; PCP Physician Assistant Medical; Visit Provider Radiology Diagnostic Radiology | DX: N43.3 Hydrocele, unspecified (principal); M47.812 Spondylosis without myelopathy or radiculopathy, cervical region; I67.82 Cerebral ischemia; R07.9 Chest pain, unspecified; W19.XXXA Unspecified fall, initial encounter; M19.072 Primary osteoarthritis, left ankle and foot; I70.90 Unspecified atherosclerosis; M19.071 Primary osteoarthritis, right ankle and foot | CPT/HCPCS: 70450; 71045; 72125; 73600; 73610; 73630; 74176 ==

== ENCOUNTER 2025-01-30 18:56 | Outpatient (BNV) | payer MEDICARE, SELFPAY | END 2025-01-31 07:00 | PROVIDERS: Admitting Provider Nurse Practitioner Family; Emergency Provider Emergency Medicine; PCP Physician Assistant Medical; Visit Provider Internal Medicine Cardiovascular Disease | DX: I35.0 Nonrheumatic aortic (valve) stenosis (principal); I34.0 Nonrheumatic mitral (valve) insufficiency | CPT/HCPCS: 93306 ==

== ENCOUNTER 2025-01-30 18:56 | Outpatient (BNV) | payer MEDICARE, SELFPAY | END 2025-01-31 17:04 | PROVIDERS: Admitting Provider Nurse Practitioner Family; Emergency Provider Emergency Medicine; PCP Physician Assistant Medical; Visit Provider Radiology Diagnostic Radiology | DX: N43.3 Hydrocele, unspecified (principal) | CPT/HCPCS: 76870; 93975 ==

== ENCOUNTER → 2025-01-30 18:56 | Outpatient (BNV) | payer MEDICARE, SELFPAY | PROVIDERS: Admitting Provider Nurse Practitioner Family; Emergency Provider Emergency Medicine; PCP Physician Assistant Medical; Visit Provider Internal Medicine Cardiovascular Disease | DX: F10.20 Alcohol dependence, uncomplicated (principal); R00.1 Bradycardia, unspecified | CPT/HCPCS: 99223 ==

== ENCOUNTER → 2025-01-30 18:56 | Outpatient (BNV) | payer MEDICARE, SELFPAY | PROVIDERS: Admitting Provider Nurse Practitioner Family; Emergency Provider Emergency Medicine; PCP Physician Assistant Medical; Visit Provider Nurse Practitioner Psychiatric/Mental Health | DX: F10.20 Alcohol dependence, uncomplicated (principal) | CPT/HCPCS: 99221 ==

== ENCOUNTER → 2025-01-30 18:56 | Outpatient (BNV) | payer MEDICARE, SELFPAY | PROVIDERS: Admitting Provider Nurse Practitioner Family; Emergency Provider Emergency Medicine; PCP Physician Assistant Medical; Visit Provider Urology | DX: R33.8 Other retention of urine (principal); N50.89 Other specified disorders of the male genital organs; N13.30 Unspecified hydronephrosis; N13.9 Obstructive and reflux uropathy, unspecified; N40.0 Benign prostatic hyperplasia without lower urinary tract symptoms | CPT/HCPCS: 99222 ==

== ENCOUNTER → 2025-01-30 18:56 | Outpatient (BNV) | payer MEDICARE, SELFPAY | PROVIDERS: Admitting Provider Nurse Practitioner Family; Emergency Provider Emergency Medicine; PCP Physician Assistant Medical; Visit Provider Nurse Practitioner Family | DX: N39.0 Urinary tract infection, site not specified (principal) | CPT/HCPCS: 99231 ==

== ENCOUNTER 2025-03-06 08:18 | Outpatient (AMB) | payer MEDICARE, SELFPAY ==
--- OUTSIDE RECORDS SUMMARY | 2025-03-06 08:25 | XMS_ITS | Encounter Summary ---
Author Organization [facility] Address [address] [place] [address] Care Team Providers Care Straight Knife Cutter Machine Name Role Phone Av Weathers Primary Care Provider [phone] Encounter Details Date Type Department Care Team (Late st Contact Info) Description 03/02/2025 Lab Requisition [facility] - Main Lab [address] [facility] [place] [address] Smitha Mcbride MD [address] [id number] Rhabdomyolysis Social History Tobacco Use Types Packs/Day Years Used Date Smoking Tobacco: Never Smokeless Tobacco: Never Alcohol Use Standard Drinks/Week Comments Yes 11.7 [...] care for your loved ones. For example, maternal child nurse or elderly care for an older adult? [...] on file Sexual Orientation Not on file documented as of this encounter Plan of Treatment Upcoming Encounters Date Type Department Care Team (Late st Contact Info) Description 03/14/2025 9:30 AM EDT Office Visit Adult Medicine [address] [phone] Av Weathers PA [address] [place] [address] 07/19/2025 8:30 AM EDT Office Visit Adult Medicine [address] [phone] Av Weathers PA [address] [place] [address] documented as of this encounter Procedures Procedure Name Priority Date/Time Associated Diagnosis Comments COMPLETE BLOOD COUNT Routine 03/03/2025 5:19 AM EDT Rhabdomyolysis BASIC METABOLIC PANEL Routine 03/03/2025 5:19 AM EDT Rhabdomyolysis documented in this encounter Results * (ABNORMAL) Complete blood count (03/03/2025 5:19 AM EDT) [facility] Signature WBC 11.0(H) 4.8 - 10.8 K/mcL LAB HEMETOLOGY METHOD 03/03/2025 9:42 AM [facility] RBC 3.90(L) 4.50 - 5.50 M/mcL LAB HEMETOLOGY METHOD 03/03/2025 9:42 AM [facility] Hemoglobin 12.6(L) 13.5 - 17.5 g/dL LAB HEMETOLOGY METHOD 03/03/2025 9:42 AM [facility] Hematocrit 38.5(L) 42.0 - 54.0 % LAB HEMETOLOGY METHOD 03/03/2025 9:42 AM [facility] MCV 99.5(H) 79.0 - 98.0 FL LAB HEMETOLOGY METHOD 03/03/2025 9:42 AM [facility] MCH 32.6(H) 27.0 - 32.0 pcg LAB HEMETOLOGY METHOD 03/03/2025 9:42 AM [facility] MCHC 32.7 32.0 - 37.0 g/dL LAB HEMETOLOGY METHOD 03/03/2025 9:42 AM [facility] RDW 11.9 11.0 - 15.0 % LAB HEMETOLOGY METHOD [facility]03[facility] Plate[facility] 312 130 - 400 K/mcL LAB HEMETOLOGY METHOD 03/03/2025 9:42 AM EDT [facility] MPV 10.2 7.0 - 11.0 FL LAB HEMETOLOGY METHOD 03/03/2025 9:[facility] NRBC 0.0 <1.0 % LAB HEMETOLOGY METHOD 03/03/2025 9:42 AM EDT [facility] NRBC Absolute 0.00 <0.10 K/mcL LAB HEMETOLOGY METHOD 03/03/2025 9:42 AM [facility] Blood Venous blood specimen / Unknown Venipuncture / Unknown 03/03/2025 5:19 AM EDT 03/03/2025 9:31 AM EDT Smitha Mcbride MD LAB BLOOD ORDERABLES Fin al Result [facility] [address] [place] [address], * (ABNORMAL) Basic metabolic panel (03/03/2025 5:19 AM EDT) Sodium 137 133 - 145 mmol/L LAB CHEMISTRY METHOD 03/03/2025 10:41 AM [facility] Potassium 4.2 3.5 - 5.5 mmol/L LAB CHEMISTRY METHOD 03/03/2025 10:41 AM [facility] Chloride 104 96 - 110 mmol/L LAB CHEMISTRY METHOD 03/03/2025 10:41 AM [facility] CO2 26 21 - 32 mmol/L LAB CHEMISTRY METHOD 03/03/2025 10:41 AM [facility] Anion Gap 7 3 - 11 LAB CHEMISTRY METHOD 03/03/2025 10:41 AM [facility] Glucose 123(H) 70 - 100 mg/dL LAB CHEMISTRY METHOD 03/03/2025 10:41 AM EDT [facility] BUN 24 5 - 25 mg/dL LAB CHEMISTRY METHOD 03/03/2025 10:41 AM EDT [facility] Creatinine 0.73 0.70 - 1.30 mg/dL LAB CHEMISTRY METHOD 03/03/2025 10:41 AM EDT [facility] eGFR 94 >=60 mL/min/1. 73m2 LAB CHEMISTRY METHOD 03/03/2025 10:41 AM EDT [facility] Comment:Calculation based on the Chronic Kidney Disease Epidemiology Collaboration (CKD-EPI) equation refit without adjustment for race. BUN/Creatinine Ratio 32.9 LAB CHEMISTRY METHOD 03/03/2025 10:41 AM T [facility] Calcium 9.5 8.5 - 10.5 mg/dL LAB CHEMISTRY METHOD 03/03/2025 10:41 AM T [facility] Blood Venous blood specimen / Unknown Venipuncture / Unknown 03/03/2025 5:19 AM EDT 03/03/2025 9:31 AM EDT us Smitha Mcbride MD LAB BLOOD ORDERABLES Fin al Result [facility] [address] [place] [address], documented in this encounter Visit Diagnoses Diagnosis Rhabdomyolysis documented in this encounter Additional Health Concerns Assessment Noted Time PHQ-9 Depression Total Score: 0 01/17/20 25 8:47 AM EDT A fall risk assessment has been complete d for the patient 01/16/2025 8:47 AM EDT documented as of this encounter Care Teams Straight Knife Cutter Machine Relationship Specialty Start Date End Date Av Weathers PA [address] [place] [address] PCP - General Internal Medicine 12/12/20 documented as of this encounter
--- NOTE | 2025-03-06 08:42 | MHC.OFFVIS ---
Intake Visit Reasons: Voiding Trial Intake Note: Patient presents today for voiding trial Urology Medication:Finasteride, Tamsulosin Blood Thinner:Aspirin Antibiotic Allergies:None Allergies No Known Allergies Allergy (Verified 03/06/25 08:57) Medication List - Last Reconciled 03/06/25 by Lien Patterson MD amlodipine 10 mg PO DAILY aspirin 81 mg PO DAILY atorvastatin 40 mg PO DAILY carvedilol 12.5 mg PO BID digoxin 125 mcg PO DAILY finasteride 5 mg PO DAILY folic acid 1 mg PO DAILY furosemide 40 mg PO DAILY lisinopril 40 mg PO DAILY melatonin 5 mg PO BEDTIME tamsulosin 0.4 mg PO BEDTIME thiamine HCl (vitamin B1) (Vitamin B-1) 250 mg PO BID HPI Comments Details: 03/06/25--Jameel is a 79-year-old male who was initially evaluated as an inpatient urology consult for scrotal edema, urinary retention and UTI. He currently has a Lopez and is here for voiding trial. The patient failed voiding trial and a 16 Guinean catheter was placed. History of Present Illness The patient is a 79-year-old male presenting with urinary retention and scrotal swelling. He was initially assessed in the hospital for urinary retention and was diagnosed with a urinary tract infection. Tamsulosin and Finasteride treatment for benign prostatic hyperplasia was started in the hospital. The patient experienced urinary retention, resulting in catheterization. The patient remains in a rehabilitation facility due to limited ambulation. I discussed with the patient the current management of urinary retention, which requires further intervention, including the continued use of a Lopez catheter. We explored the necessity for a follow-up visit to perform cystoscopy and assess the condition of the urethra and prostate in more detail and I will repeat a scrotal ultrasound. 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) Alcohol intake: current Alcohol intake frequency: 0-2 drinks per day Alcohol type: beer Patient Tobacco Use Status: Never used Tobacco Advance Directives Date on File: 06/13/24 service: No Review of Systems Const All systems reviewed & are unremarkable except as noted in HPI and below Reports no additional complaints Eyes Reports no additional complaints ENT Reports no additional complaints Card Reports no additional complaints Resp Reports no additional complaints GI Reports no additional complaints Reports as per HPI Musc Reports no additional complaints Skin/Breast Reports system reviewed and no additional complaints, except as documented Neuro Reports no additional complaints Psych Reports no additional complaints Endo Reports no additional complaints Toby/Lymph Reports no additional complaints Aller/Immun Reports no additional complaints Physical Exam Const General: no acute distress and well developed Orientation/consciousness: patient oriented x3 HEENT Head: Yes normocephalic and Yes atraumatic Eyes Conjunctivae: conjunctivae normal Neck Neck: Yes normal visual inspection Chest Chest palpation & inspection: normal inspection of the chest Resp Effort & Inspection: normal respiratory effort GI Inspection: Yes normal to inspection Scrotum: scrotal swelling Skin General skin exam: no rashes or lesions noted Neuro General: patient oriented x3 Psych Appearance: grossly normal Affect: normal affect Office Procedures Bladder/Catheter Procedure Details: Patient presents to office for voiding trial s/p urinary retention in ER. 120mls sterile water instilled through catheter, patient tolerated well. Removed 16fr lopez catheter, patient tolerated removal well. Patient not able to void. Reviewed with Dr. Alarocn. New 16fR Coude catheter with 10ml and night bag replaced. 09400-[id number] of Bladder 30268-Zqvqbf Temporary Bladder Catheter Procedure code (CPT) selection complete Assessment & Plan Assessment & Plan (1) Scrotal swelling: Code(s): N50.89 - Other specified disorders of the male genital organs Category: Medical (2) Urinary retention: Code(s): R33.9 - Retention of urine, unspecified Category: Medical (3) Enlarged prostate: Code(s): N40.0 - Benign prostatic hyperplasia without lower urinary tract symptoms Category: Medical (4) History of UTI: Code(s): Z87.440 - Personal history of urinary (tract) infections Category: Medical Plan Continue tamsulosin and Proscar daily, schedule office cystoscopy, 16 Guinean Lopez replaced due to failed voiding trial Ultrasound scrotum. Orders: Orders AMB Bladder/Catheter Procedure Today N40.0 - Benign prostatic hyperplasia without lower urinary tract symptoms US scrotum Today N50.89 - Other specified disorders of the male genital organs Medications: Refilled tamsulosin 0.4 mg PO BEDTIME 90 caps 2RF finasteride 5 mg PO DAILY 90 tabs 2RF Patient Instructions: The patient had an opportunity to ask questions regarding treatment plan. The patient expressed understanding and agreement with the above treatment plan. The patient is aware they should contact our office by phone for worsening of their current condition or the appearance of new symptoms. Compliance is encouraged with any medications and followup testing that is ordered. It is a privilege to be allowed the opportunity to participate in the urologic care of your patient. If you have any questions or concerns regarding treatment for the above conditions please do not hesitate to contact me. The office telephone contact is [phone]. This note is constructed in part using voice recognition software. While every effort has been made to ensure accuracy blast furnace keeper helper errors may have been included. Yours sincerely, Lien Patterson MD Scribe Plan - Not visible on output: Patient was informed and verbally consented to the use of an ambient scribe for clinic note documentation during this visit. Coding Level of Care Code Est Pt Level 4 (62361) Complex EM visit Add On G2211 Diagnoses Scrotal swelling N50.89 Urinary retention R33.9 Enlarged prostate N40.0 History of UTI Z87.440 CPT Codes Bladder/Catheter Procedure - CPT: 57925-Ceqqpahdio of Bladder ([id number]) Bladder/Catheter Procedure - CPT: 93504-Pjtwcm Temporary Bladder Catheter ([id number])
== END 2025-03-06 09:32 | disposition home or self-care (01) ==
LOC: HO.HUSH 08:18
PROVIDERS: PCP Physician Assistant Medical; Visit Provider Urology
DX: N50.89 Other specified disorders of the male genital organs (principal); R33.9 Retention of urine, unspecified; N40.0 Benign prostatic hyperplasia without lower urinary tract symptoms; Z87.440 Personal history of urinary (tract) infections
CPT/HCPCS: 51700; 99214; G2211

== ENCOUNTER → 2025-03-06 08:18 | Outpatient (BNVA) | payer MEDICARE, SELFPAY | PROVIDERS: PCP Physician Assistant Medical; Visit Provider Urology | DX: N40.1 Benign prostatic hyperplasia with lower urinary tract symptoms (principal); R33.8 Other retention of urine; N50.89 Other specified disorders of the male genital organs; Z87.440 Personal history of urinary (tract) infections; Z46.6 Encounter for fitting and adjustment of urinary device; Z96.0 Presence of urogenital implants | CPT/HCPCS: 51700; 99212 ==

== ENCOUNTER 2025-03-17 13:58 | Emergency (ER) | payer MEDICARE, SELFPAY ==
[2025-03-17 14:15] VITALS: BP 112/64; BP 118/65; PULSE 60; PULSE 68; RESP 16; TEMP 36.8; O2SAT 100; O2SAT 97; BMI 26.0
--- NOTE | 2025-03-17 14:55 | ED.MALEGU ---
HPI - Male Genitourinary General Chief complaint: Urogenital-Male Stated complaint: PENIS BLEEDING S/P CATH REMOVAL PER EMS Time Seen by Provider: 03/17/25 14:55 Source: patient and EMS Mode of arrival: EMS Limitations: no limitations History of Present Illness ED Provider: HPI Narrative: 79-year-old male presenting with bleeding from his penis, he has had a Sol catheter for the past 2 3 months for enlarged prostate follows urology Dr. Alarcon, he is not on blood thinners. Related Data Home Medications ?Medication ?Instructions ?Recorded ?Confirmed amlodipine 10 mg tablet 10 mg PO DAILY 01/30/25 03/06/25 aspirin 81 mg tablet,delayed 81 mg PO DAILY 01/30/25 03/06/25 release atorvastatin 40 mg tablet 40 mg PO DAILY 01/30/25 03/06/25 carvedilol 12.5 mg tablet 12.5 mg PO BID 01/30/25 03/06/25 digoxin 125 mcg (0.125 mg) tablet 125 mcg PO DAILY 01/30/25 03/06/25 furosemide 40 mg tablet 40 mg PO DAILY 01/30/25 03/06/25 lisinopril 40 mg tablet 40 mg PO DAILY 01/30/25 03/06/25 melatonin 5 mg tablet 5 mg PO BEDTIME 01/30/25 03/06/25 thiamine HCl (vitamin B1) 250 mg 250 mg PO BID 01/30/25 03/06/25 tablet (Vitamin B-1) Previous Rx's ?Medication ?Instructions ?Recorded folic acid 1 mg tablet 1 mg PO DAILY #1 tab 02/03/25 finasteride 5 mg tablet 5 mg PO DAILY #90 tabs 03/06/25 tamsulosin 0.4 mg capsule 0.4 mg PO BEDTIME #90 caps 03/06/25 cephalexin 500 mg capsule 500 mg PO BID 7 days #14 caps 03/17/25 Allergies Allergy/AdvReac Type Severity Reaction Status Date / Time No Known Allergies Allergy Verified 03/17/25 14:53 Review of Systems Constitutional: Constitutional: Reports as per [facility] Past Medical History Medical History Hepatic steatosis Cerumen impaction Cervical spondylosis CVA (cerebral vascular accident) ETOH abuse Afib Surgical History History of ankle surgery Hx of CABG Social History Social History Household Members: None Housing: Apartment Do you presently have visiting nurse or other home services: Yes (niece/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 therapy 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-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) Alcohol intake: current Alcohol intake frequency: 0-2 drinks per day Alcohol type: beer Patient Tobacco Use Status: Never used Tobacco Advance Directives: Yes Advance Directives on File: Yes Advance Directives Date on File: 06/13/24 service: No Physical Exam Vital Signs: Vital Signs: Last Vital Signs Temp 98.3 F 03/17/25 14:15 Pulse 68 03/17/25 14:15 Resp 16 03/17/25 14:15 BP 118/65 03/17/25 14:15 Pulse Ox 97 03/17/25 14:15 O2 Del Method Room Air 03/17/25 14:15 BMI result Body Mass Index 26.0 Const: Other: Alert and oriented follows commands On physical examination of his area, he has what appears to be traction injury to his urethra, bleeding from the dorsum of his penis, enlarged testicles, no paraphimosis Abdominal exam is benign Medical Decision Making Medical Decision Making MDM Narrative: Patient is presenting with a appears to be a traction injury to his urethra, Dr. Alarcon from Urology is on-call this is his urologist, I will discuss this with her, there was no significant bleeding though would necessitate cautery etc. my question to Urology whether Sol catheter needs to be reinserted this would likely be reinsertion by urology specialist or he needs a suprapubic catheter. [address] Alarcon, she will come to ED to evaluate patient 450pm: Dr. Alarcon replaced Sol catheter, we will discharge home with oral antibiotics Admission/Observation Consideration of admission/observation: Escalation of care including admission/observation considered Possibly for procedure or monitoring Discharge Plan Discharge Clinical Impression: Urinary retention Injury of male urethra Qualifiers: Encounter type: initial encounter Qualified Code(s): S37.30XA - Unspecified injury of urethra, initial encounter Patient Disposition: Home, Self-Care Additional Instructions: Sol catheter reinserted by urologist, we will have Urology follow up, Dr. Hinojosa was involved in his ED care today, we will start on antibiotics, can continue to have some bleeding and oozing, can use Xeroform so penis does not stick to under were, or any type of bacitracin other Vaseline cream to keep the area from sticking as though be some bloody oozing for some time I believe it is going to resolve in the next 4-5 days, make sure he follows up with Urology. Prescriptions: New cephalexin 500 mg capsule 500 mg PO BID 7 Days Qty: 14 0RF No Action furosemide 40 mg tablet 40 mg PO DAILY atorvastatin 40 mg tablet 40 mg PO DAILY carvedilol 12.5 mg tablet 12.5 mg PO BID digoxin 125 mcg (0.125 mg) tablet 125 mcg PO DAILY lisinopril 40 mg tablet 40 mg PO DAILY thiamine HCl (vitamin B1) [Vitamin B-1] 250 mg Tablet 250 mg PO BID aspirin 81 mg Tablet,Delayed Release (Dr/Ec) 81 mg PO DAILY amlodipine 10 mg tablet 10 mg PO DAILY melatonin 5 mg Tablet 5 mg PO BEDTIME folic acid 1 mg Tablet 1 mg PO DAILY Qty: 1 0RF tamsulosin 0.4 mg capsule 0.4 mg PO BEDTIME Qty: 90 2RF finasteride 5 mg tablet 5 mg PO DAILY Qty: 90 2RF Print Language: Kazakh
--- OUTSIDE RECORDS SUMMARY | 2025-03-17 15:18 | XMS_ITS | Encounter Summary ---
Author Organization [facility] Address [address] [place] [address] Care Team Providers Care Twill Cutter Name Role Phone Av Weathers Primary Care Provider [phone] Encounter Details Date Type Department Care Team (Late st Contact Info) Description 03/04/2025 Lab Requisition [facility] - Main Lab [address] [facility] [place] [address] Smitha Mcbride MD [address] [id number] Rhabdomyolysis Social History Tobacco Use Types Packs/Day [...] care for your loved ones. For example, attendant child activity or elderly care for an older adult? [...] 8:30 AM EDT Office Visit Adult Medicine [facility] [address] [place] [address] Av Weathers PA [address] [place] [address] documented as of this encounter Procedures Procedure Name Priority Date/Time Associated Diagnosis Comments COMPLETE BLOOD COUNT Routine 03/04/2025 10:36 AM EDT Rhabdomyolysis BASIC METABOLIC PANEL Routine 03/04/2025 10:36 AM EDT Rhabdomyolysis documented in this encounter Results * (ABNORMAL) Complete blood count (03/04/2025 10:36 AM EDT) WBC 9.2 4.8 - 10.8 K/mcL LAB [facility] RBC 4.00(L) 4.50 - 5.50 M/mcL LAB HEMETOLOGY METHOD 03/04/2025 1:08 PM [facility] Hemoglobin 12.6(L) 13.5 - 17.5 g/dL LAB HEMETOLOGY METHOD 03/04/2025 1:08 PM [facility] Hematocrit 39.6(L) 42.0 - 54.0 % LAB HEMETOLOGY METHOD 03/04/2025 1:08 PM [facility] MCV 99.0(H) 79.0 - 98.0 FL LAB HEMETOLOGY METHOD 03/04/2025 1:08 PM [facility] MCH 31.5 27.0 - 32.0 pcg LAB HEMETOLOGY METHOD 03/04/2025 1:08 PM [facility] MCHC 31.8(L) 32.0 - 37.0 g/dL LAB HEMETOLOGY METHOD 03/04/2025 1:08 PM [facility] RDW 11.9 11.0 - 15.0 % LAB HEMETOLOGY METHOD 03/04/2025 1:08 PM [facility] Platelets 340 130 - 400 K/mcL LAB HEMETOLOGY METHOD 03/04/2025 1:08 PM [facility] MPV 10.2 7.0 - 11.0 FL LAB HEMETOLOGY METHOD 03/04/2025 1:08 PM [facility] NRBC 0.0 <1.0 % LAB HEMETOLOGY METHOD 03/04/2025 1:08 PM [facility] NRBC Absolute 0.00 <0.10 K/mcL LAB HEMETOLOGY METHOD 03/04/2025 1:08 PM [facility] Blood Venous blood specimen / Unknown Venipuncture / Unknown 03/04/2025 10:36 AM EDT 03/04/2025 11:34 AM EDT us Smitha Mcbride MD LAB BLOOD ORDERABLES Fin al Result [facility] [address] [place] [address], * (ABNORMAL) Basic metabolic panel (03/04/2025 10:36 AM EDT) Sodium 136 133 - 145 mmol/L LAB CHEMISTRY METHOD 03/04/2025 1:27 PM [facility] Potassium 4.3 3.5 - 5.5 mmol/L LAB CHEMISTRY METHOD 03/04/2025 1:27 PM [facility] Chloride 104 96 - 110 mmol/L LAB CHEMISTRY METHOD 03/04/2025 1:27 PM [facility] CO2 24 21 - 32 mmol/L LAB CHEMISTRY METHOD 03/04/2025 1:27 PM [facility] Anion Gap 8 3 - 11 LAB CHEMISTRY METHOD 03/04/2025 1:27 PM [facility] Glucose 114(H) 70 - 100 mg/dL LAB CHEMISTRY METHOD 03/04/2025 1:27 PM [facility] BUN 17 5 - 25 mg/dL LAB CHEMISTRY METHOD 03/04/2025 1:27 PM [facility] Creatinine 0.74 0.70 - 1.30 mg/dL LAB CHEMISTRY METHOD 03/04/2025 1:27 PM EDT [facility] eGFR 93 >=60 mL/min/1. 73m2 LAB CHEMISTRY METHOD 03/04/2025 1:27 PM EDT [facility] Comment:Calculation based on the Chronic Kidney Disease Epidemiology Collaboration (CKD-EPI) equation refit without adjustment for race. BUN/Creatinine Ratio 23.0 LAB CHEMISTRY METHOD 03/04/2025 1:27 PM EDT [facility] Calcium 9.4 8.5 - 10.5 mg/dL LAB CHEMISTRY METHOD 03/04/2025 1:27 PM EDT [facility] Blood Venous blood specimen / Unknown Venipuncture / Unknown 03/04/2025 10:36 AM EDT 03/04/2025 11:34 AM EDT us Smitha Mcbride MD LAB BLOOD ORDERABLES Fin al Result [facility] [address] [place] [address], documented in this encounter Visit Diagnoses Diagnosis Rhabdomyolysis documented in this encounter Additional Health Concerns Assessment Noted Time PHQ-9 Depression Total Score: 0 01/17/20 25 8:47 AM EDT A fall risk assessment has been complete d for the patient 01/16/2025 8:47 AM EDT documented as of this encounter Care Teams Twill Cutter Relationship Specialty Start Date End Date Av Weathers PA [address] [place] [id number] PCP - General Internal Medicine 12/12/20 documented as of this encounter
[2025-03-17 17:01] VITALS: BP 132/72; PULSE 95; RESP 20; TEMP 36.6; O2SAT 97
[2025-03-17 17:12] LABS: Appearance Urine Clear; Color Urine Yellow; Glucose Urine UA Negative (Negative); Leukocyte Esterase Urine Trace (Negative); Nitrite Urine Negative (Negative); UMIC TRIGGER UACC YES; Urine Blood Large (3+) (Negative); Urine Ketones Negative (Negative); Urine Protein 30 (1+) mg/dL (Neg-Trace)
--- NOTE | 2025-03-17 17:13 | PM.UROCN ---
History of Present Illness Consult details Consult date: 03/17/25 Narrative: 79-year-old male reported to present from facility with bleeding from his penis. chronic lopez. 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 Review of Systems Review of Systems: Yes Other (patient is poor historian) [facility] Past Medical History Medical History Hepatic steatosis Cerumen impaction Cervical spondylosis CVA (cerebral vascular accident) ETOH abuse Afib Surgical History Surgical History History of ankle surgery Hx of CABG Social History Social History Household Members: None Housing: Apartment Do you presently have visiting nurse or other home services: Yes (niece/cardroom hand 2-3hrs a day) Alcohol intake: current Alcohol intake frequency: 0-2 drinks per day Alcohol type: beer Patient Tobacco Use Status: Never used Tobacco Advance Directives: Yes Advance Directives on File: Yes Advance Directives Date on File: 06/13/24 service: No Meds Allergies Allergy/AdvReac Type Severity Reaction Status Date / Time No Known Allergies Allergy Verified 03/17/25 14:53 Home Medications ?Medication ?Instructions ?Recorded ?Confirmed ?Last Taken ?Type amlodipine 10 mg tablet 10 mg PO DAILY 01/30/25 03/06/25 01/27/25 History aspirin 81 mg tablet,delayed 81 mg PO DAILY 01/30/25 03/06/25 01/27/25 History release atorvastatin 40 mg tablet 40 mg PO DAILY 01/30/25 03/06/25 01/27/25 History carvedilol 12.5 mg tablet 12.5 mg PO BID 01/30/25 03/06/25 01/27/25 History digoxin 125 mcg (0.125 mg) tablet 125 mcg PO DAILY 01/30/25 03/06/25 01/27/25 History furosemide 40 mg tablet 40 mg PO DAILY 01/30/25 03/06/25 01/27/25 History lisinopril 40 mg tablet 40 mg PO DAILY 01/30/25 03/06/25 01/27/25 History melatonin 5 mg tablet 5 mg PO BEDTIME 01/30/25 03/06/25 01/27/25 History thiamine HCl (vitamin B1) 250 mg 250 mg PO BID 01/30/25 03/06/25 01/27/25 History tablet (Vitamin B-1) Physical Exam Vital Signs: Vital Signs: Last Vital Signs Temp 97.9 F 03/17/25 17:01 Pulse 95 03/17/25 17:01 Resp 20 03/17/25 17:01 BP 132/72 03/17/25 17:01 Pulse Ox 97 03/17/25 17:01 O2 Del Method Room Air 03/17/25 17:01 BMI result Body Mass Index 26.0 : Other: Minimal blooe at meatus, iatrogenic coronal hypospadias, from chronic lopez Results Labs Labs: All other labs normal. Assessment and Plan (1) History of UTI: Status: Acute (2) Urinary retention: Status: Acute (3) Hypospadias, penile: Status: Acute Plan 16 fr lopez placed, keep taped so it does not pull and cause traction send urine for c/s and cover with abx pending c/s results Keep scheduled fu with reading urology Procedures Date of Service Date of Service: 03/17/25 Catheter Insertion (Urinary) Date of insertion: 03/17/25 Replacement of catheter present on admission: Yes Reason for placing: Acute urinary retention Bladder scan/ultrasound used before catheterization: Yes Estimated amount of urine (mLs): 607 Antiseptic solution prep: Povidone-Iodine Topical anesthesia used: Yes (2% lidocaine jelly 10 mL) Catheter type/location: 2-way Urethral Size (Slovak): 16 Catheter balloon size (mL): 10 Catheter balloon amount: 10 Results: successfully catheterized-immediate flow Procedure performed: without complications
[2025-03-17 17:14] LABS: Bacteria Urine None Seen (None Seen); Hyaline Casts Urine 0-2 /LPF (0-2); RBC Urine >20 /HPF (0-2); Squamous Epithelial Cell Urine 0-2 /HPF (0-2); WBC Urine 0-5 /HPF (0-5)
[2025-03-17 17:48] VITALS: BP 132/72; PULSE 95; RESP 20; TEMP 36.6; O2SAT 97
--- NOTE | 2025-03-17 18:08 | PC.NURSE ---
verbaL NURSE [phone]. Ems transport in request.
[2025-03-17 22:19] VITALS: BP 147/68; PULSE 78; RESP 20; TEMP 37.1; O2SAT 95
== END 2025-03-17 22:20 | disposition home or self-care (01) ==
PROVIDERS: Emergency Provider Emergency Medicine
DX: R33.9 Retention of urine, unspecified (principal); S37.30XA Unspecified injury of urethra, initial encounter; X58.XXXA Exposure to other specified factors, initial encounter; Y93.9 Activity, unspecified; Y92.9 Unspecified place or not applicable; Y99.9 Unspecified external cause status; Q54.1 Hypospadias, penile; Z87.440 Personal history of urinary (tract) infections
CPT/HCPCS: 81001; 99283; 99284

== ENCOUNTER → 2025-03-17 15:12 | Outpatient (BNV) | payer MEDICARE, SELFPAY | PROVIDERS: Emergency Provider Emergency Medicine; Visit Provider Urology | DX: R33.9 Retention of urine, unspecified (principal); Q54.1 Hypospadias, penile; Z87.440 Personal history of urinary (tract) infections | CPT/HCPCS: 51702; 99282 ==

== ENCOUNTER 2025-03-21 09:03 | Emergency (ER) | payer MEDICARE, SELFPAY ==
[2025-03-21] VITALS (7 sets, daily range): BP systolic 124–152; BP diastolic 58–89; PULSE 74–93; RESP 16–18; TEMP 36.5–36.8; O2SAT 95–97; BMI 32.4
--- NOTE | ~2025-03-21 | CT_ITS ---
EXAMINATION: CT SOFT TISSUE NECK WITH CONTRAST CLINICAL INFORMATION: Tongue swelling, possible mass in throat. COMPARISON: None available. TECHNIQUE: Following the intravenous administration of 60 mL of Omnipaque 350 intravenous contrast, helical imaging was performed in the axial plane with generation of coronal and sagittal reformatted images. This CT examination was performed using dose optimization techniques as appropriate, variously including the following: *Automated exposure control *Adjustment of mA and/or kV according to patient size (this includes techniques or standardized protocols for targeted exams where dose is matched to indication/reason for exam; i.e. extremities or head) *Use of iterative reconstruction technique FINDINGS: Lymph Nodes: -Normal. No abnormal lymphadenopathy. Carotid Sheath Structures: -Mild to moderate bilateral carotid bulb calcifications. -Carotid sheath structures otherwise normal. Salivary Glands: -Normal. Tongue Base/Floor of Mouth: -The left side of the tongue appears somewhat swollen/prominent. No definite discrete enhancing mass lesion is appreciated. Mucosal Space: -Mild hypertrophy of the palatine tonsils with right-sided tonsillolith. -No discrete enhancing mucosal space mass is identified. -The epiglottis and aryepiglottic folds are normal in appearance. Visceral Space: -Thyroid gland: Normal. -The larynx appears normal. -The subglottic trachea appears normal. -The superior esophagus appears mildly patulous. No radiopaque foreign body. Retropharangeal Space: - Normal. Parapharyngeal Fat Planes: -Normal. Solar Resource Assessor Spaces: -Normal. Anterior Cervical Space: -Normal. Imaged Intracranial Contents: -No mass effect, edema, or abnormal enhancement. Cortical and dural venous sinuses are patent. The skull base is normal. Globes and Orbits: -Normal. Paranasal Sinuses/Mastoids/Tympanic Spaces: -Normally aerated bilaterally. Lung Apices and Superior Mediastinal Structures: -Imaged lung apices are motion degraded however grossly clear. Mild emphysema is present. -There is a left-sided aortic arch with an a right subclavian artery. -There has been prior median sternotomy and probable CABG. Bony Structures: -No suspicious bone lesions. No fractures. -There are degenerative changes throughout the cervical spine. -Normal TM joints. CT/CT soft tissue neck w IV con IMPRESSION: 1. The left side of the tongue appears somewhat swollen/prominent although there is no discrete enhancing tongue mass, or discrete enhancing mucosal space mass identified. This should not preclude direct visualization of the oropharynx and hypopharyngeal structures. 2. No abnormal fluid collection or abscess is evident. 3. No radiopaque foreign body is evident. 4. Additional ancillary findings as discussed in the body of the report. Electronically signed by: Fausto Rogers MD 03/21/2025 12:08 PM EDT
--- NOTE | 2025-03-21 09:05 | ED.GENADULT ---
HPI - General Adult General Chief complaint: Allergic Reaction Stated complaint: TONGUE SWELLING,FROM SNF PER EMS Time Seen by Provider: 03/21/25 09:04 Source: patient, family (patient's sister) and EMS Mode of arrival: EMS Limitations: no limitations History of Present Illness ED Provider: Mónica Rojas PA-C HPI narrative: Patient is a 79 year old assigned male at with a history of alcohol use, urinary retention requiring lopez catheter with recent UTI on 03/17/2025 and started on keflex, and HTN on lisinopril, presenting to the emergency department today with tongue swelling. Patient states that his tongue has been swollen since beginning the keflex 4 days ago. SNF staff states that they have been giving benadryl there and continued giving the keflex. Patient denies any dizziness, lightheadedness, abdominal pain, nausea, vomiting, fever, chills, blurry vision, double vision, loss of vision, chest pain, difficulty breathing, shortness of breath, back pain, night sweats, blood in his urine or stool, syncope or a near syncopal episode, recent trauma or falls, bowel incontinence, bladder incontinence, or any other complaints at this time. Onset (ago): day(s) (4) Relieving factors: none Exacerbating factors: none Associated symptoms: denies other symptoms Treatments prior to arrival: other (Benadryl from SNF staff) Related Data Home Medications ?Medication ?Instructions ?Recorded ?Confirmed amlodipine 10 mg tablet 10 mg PO DAILY 01/30/25 03/06/25 aspirin 81 mg tablet,delayed 81 mg PO DAILY 01/30/25 03/06/25 release atorvastatin 40 mg tablet 40 mg PO DAILY 01/30/25 03/06/25 carvedilol 12.5 mg tablet 12.5 mg PO BID 01/30/25 03/06/25 digoxin 125 mcg (0.125 mg) tablet 125 mcg PO DAILY 01/30/25 03/06/25 furosemide 40 mg tablet 40 mg PO DAILY 01/30/25 03/06/25 melatonin 5 mg tablet 5 mg PO BEDTIME 01/30/25 03/06/25 thiamine HCl (vitamin B1) 250 mg 250 mg PO BID 01/30/25 03/06/25 tablet (Vitamin B-1) Previous Rx's ?Medication ?Instructions ?Recorded folic acid 1 mg tablet 1 mg PO DAILY #1 tab 02/03/25 finasteride 5 mg tablet 5 mg PO DAILY #90 tabs 03/06/25 tamsulosin 0.4 mg capsule 0.4 mg PO BEDTIME #90 caps 03/06/25 diphenhydramine HCl 25 mg capsule 25 mg PO DAILY #5 caps 03/21/25 (Banophen) famotidine 20 mg tablet 20 mg PO DAILY #5 tabs 03/21/25 losartan 25 mg tablet 25 mg PO DAILY #14 tabs 03/21/25 prednisone 20 mg tablet 20 mg PO DAILY 5 days #5 tabs 03/21/25 Allergies Allergy/AdvReac Type Severity Reaction Status Date / Time No Known Allergies Allergy Verified 03/21/25 09:15 Review of Systems Constitutional: Constitutional: Reports no additional constitutional complaints, Denies chills, Denies fever(s) and Denies night sweats Eyes: Eyes: Reports no additional eye complaints, Denies blurry vision, Denies change in vision, Denies diplopia, Denies eye discharge, Denies loss of vision and Denies eye pain ENT: Denies dizziness Comments: tongue swelling Cardiovascular: Cardiovascular: Reports no additional cardiovascular complaints, Denies chest pain, Denies lightheadedness, Denies Loss of Consciousness and Denies dyspnea Respiratory: Respiratory: Reports no additional respiratory complaints and Denies dyspnea Gastrointestinal: Gastrointestinal: Reports no additional gastrointestinal complaints, Denies abdominal pain, Denies melena, Denies hematochezia, Denies change in bowel habits and Denies change in stool character Genitourinary: Genitourinary: Reports no additional male genitourinary complaints, Denies hematuria, Denies oliguria, Denies difficulty urinating, Denies dysuria, Denies urinary frequency, Denies urinary hesitancy, Denies urinary incontinence and Denies urinary urgency Musculoskeletal: Musculoskeletal: Reports no additional musculoskeletal complaints, Denies numbness and Denies tingling Neurologic: Denies dizziness, Denies loss of vision, Denies numbness and Denies tingling Psychiatric: Psychiatric: Reports no additional psychiatric complaints Endocrine: Endocrine: Reports no additional endocrine complaints Hematologic/Lymphatic: Hematologic/Lymphatic: Reports no additional hematologic/lymphatic complaints Allergic/Immunologic: Allergic/Immunologic: Reports no additional allergic/immunologic complaints PMFSH Past Medical History Attestation statement: The following information was validated with the patient. (all information validated with the patient's sister) Source: old records reviewed, obtained from family (patient's sister provided additional history and confirmed the history provided by the patient.), nursing notes reviewed and other (SNF notes / staff) Medical History Hepatic steatosis Cerumen impaction Cervical spondylosis CVA (cerebral vascular accident) ETOH abuse Afib Surgical History History of ankle surgery Hx of CABG Social History Social History Household Members: None Housing: Apartment Do you presently have visiting nurse or other home services: Yes (niece/archives director 2-3hrs a day) Alcohol intake: current Alcohol intake frequency: 0-2 drinks per day Alcohol type: beer Patient Tobacco Use Status: Never used Tobacco Smoked in Last 30 Days: No Use of substances other than those prescribed or required for medical reasons: No Advance Directives: Yes Advance Directives on File: Yes Advance Directives Date on File: 06/13/24 service: No Physical Exam ED Vital Signs: Vital Signs - 24 hr 03/21/25 09:09 03/21/25 09:30 03/21/25 10:00 Temperature 98.2 F 97.7 F Pulse Rate 83 82 84 Respiratory Rate 16 18 Blood Pressure 147/79 H 147/79 H 140/66 H Pulse Oximetry 95 97 Oxygen Delivery Method Room Air Room Air 03/21/25 10:06 03/21/25 11:52 03/21/25 11:58 Temperature 98.2 F 98.3 F Pulse Rate 74 84 78 Respiratory Rate 16 16 Blood Pressure 140/66 H 134/58 L 129/61 Pulse Oximetry 96 96 Oxygen Delivery Method Room Air Room Air BMI result Body Mass Index 32.4 Const General: cooperative, no acute distress, alert and awake Nutritional Appearance: well nourished Orientation/consciousness: patient oriented x3 HENMT Head: Yes normal to inspection and Yes atraumatic Ears: hearing grossly normal bilaterally and external ears normal General nose exam: Normal external nose present, no nasal discharge noted and no epistaxis Face and sinus: Yes normal facial exam, No abrasion and No laceration Mouth: no drooling, no muffled voice and tongue abnormal (tongue swelling) Eyes General: appearance normal, both eyes and all related structures Periorbital: periorbital findings normal Eyelids: Yes eyelids normal Conjunctivae: conjunctivae normal Pupils: Equal, round and reactive pupils present EOM: EOMs intact bilaterally Neck Neck: Yes normal visual inspection, Yes full ROM and Yes no lymphadenopathy Resp Effort & Inspection: normal respiratory effort and able to speak in complete sentences Neuro General: patient oriented x3, moves all extremities and CN's II-XI intact bilaterally Cranial nerves: Yes Equal, round and reactive pupils present Cognition (Neuro): normal cognition Extrem General: Yes normal to inspection, Yes full ROM and Yes capillary refill normal Psych Appearance: grossly normal Mental Status: mental status grossly normal Affect: normal affect Attitude: cooperative Thought process: Normal thought process present Thought content: Normal thought content present Insight: Good insight present (Psych) Medications Administered Discontinued Medications Generic Name Dose Route Start Last Admin Trade Name Freq PRN Reason Stop Dose Admin Epinephrine 0.3 mg 03/21/25 09:12 03/21/25 09:30 Epinephrine 1 Mg/Ml Vial SUBCUT 03/21/25 09:13 0.3 mg STAT STA Administration Famotidine 20 mg 03/21/25 09:12 03/21/25 09:29 Famotidine/Pf 20 Mg/2 Ml Vial IVPUSH 03/21/25 09:13 20 mg ONCE ONE Administration Methylprednisolone Sodium Succinate 60 mg 03/21/25 09:12 03/21/25 09:29 Methylprednisolone Sod Succ 125 Mg Vial IVPUSH 03/21/25 09:13 60 mg ONCE ONE Administration Medical Decision Making Medical Decision Making [facility] Narrative: Patient is a 79 year old assigned male at with a history of alcohol use, urinary retention requiring lopez catheter with recent UTI on 03/17/2025 and started on keflex, and HTN on lisinopril, presenting to the emergency department today with tongue swelling. Patient's physical exam showed some tongue swelling with a maintained airway and normal sounding voice. Patient's blood work showed a WBC count of 12.3 but otherwise unremarkable. Patient's urine from 03/17/2025 was unimpressive and did not reflex to culture. Patient's CT soft tissue neck showed left sided tongue swelling but no discrete mass or abscess. Patient received subcutaneous epi x1 dose, famotidine IV, and solu-medrol IV which caused improvement of his tongue. Patient's clinical presentation could be an allergic reaction to keflex vs. lisinopril angioedema. I consulted with my attending physician, Dr. Tobin who stated it would be reasonable to attempt admission for continued observation. I spoke with the hospitalist, Dr. Gamble, who reviewed the case and stated there was no clear reason for admission / observation. He recommended discharge back to [facility] with prednisone, benadryl, and famoitidne in addition to having the patient stop the keflex + lisinopril and be switched to losartan. I agreed with this plan and considered it reasonable given the patient has had symptoms for 4 days and continues maintaining his airway. I explained my physical exam findings as well as all test results to the patient and the patient's sister. I answered all questions asked by the patient and the patient's sister. I stressed the importance of the patient taking his medication as directed (either prescribed or as the over the counter packaging recommends). I stressed the importance of the patient following up with his primary care provider. I stressed the importance of the patient returning to the emergency department immediately if his symptoms were to worsen or if he were to develop any dizziness, shortness of breath, difficulty breathing, chest pain, blurry vision, loss of vision, nausea, vomiting, abdominal pain, fever, chills, back pain, or any other complaints. Patient and the patient's sister verbalized agreement and understanding with this treatment plan and discharge back to [facility] rehab. Differential Diagnosis Differential Diagnoses: The differential diagnosis associated with the presentation includes Angioedema Lisinopril adverse reaction Allergic reaction to keflex Admission/Observation Consideration of admission/observation: Escalation of care including admission/observation considered Attempted to admit the patient as noted in the MDM Rationale portion of this note. Consult Healthcare Provider Management of the patient was discussed with: Hospitalist (spoke with the hospitalist team as noted in the MDM Rationale portion of this note. ) Lab Data [facility] Lab Attestation statement: I reviewed the patient's lab results. My interpretation of these results are in the MDM Rationale portion of this note. 03/21/25 09:26 03/21/25 09:26 Labs: Lab Results 03/21/25 Range/Units 09:26 WBC 12.3 H (4.8-10.8) X10*3/uL RBC 4.20 L (4.60-5.80) X10*6/uL Hgb 13.5 L (14.0-18.0) g/dl Hct 38.9 L (42.0-52.0) % MCV 92.6 (80.0-98.0) fL MCH 32.1 (27.0-33.0) pg MCHC 34.7 (31.0-36.0) g/dl RDW 11.7 (11.0-16.0) % Plt Count 350 D (160-400) X10*3/uL MPV 9.2 L (9.4-12.4) fL Immature Gran % (Auto) 0.5 H (0.0-0.4) % Neut % (Auto) 79.4 H (45-73) % Lymph % (Auto) 12.9 L (20-40) % [place] % (Auto) 4.5 (2-11) % Eos % (Auto) 2.4 (0-4) % Baso % (Auto) 0.3 (0-2) % Lymph # (Auto) 1.6 (1.2-4.9) X10*3/uL [place] # (Auto) 0.6 (0.1-1.2) X10*3/uL Eos # (Auto) 0.3 (0.0-0.4) X10*3/uL Baso # (Auto) 0.0 (0.0-0.2) X10*3/uL Abs Immat Gran (auto) 0.06 H (0.00-0.03) X10*3/uL Absolute Neuts (auto) 9.7 H (2.0-8.3) x10*3/uL Absolute Nucleated RBC 0.000 (0.0-0.012) X10*3/uL Nucleated RBC % (auto) 0.0 (0.0-0.2) /100WBC Sodium 140 (135-145) mmol/L Potassium 4.0 (3.3-5.1) mmol/L Chloride 102 (96-108) mmol/L Carbon Dioxide 27 (22-29) mmol/L Anion Gap 15 (12-20) BUN 14 (9-16) mg/dL Creatinine 0.64 (0.5-1.4) mg/dL Estim Creat Clear Calc 102.1 Estimated GFR > 60 Random Glucose 163 H (60-115) mg/dL Calcium 9.8 D (8.4-10.2) mg/dL Magnesium 1.7 (1.6-2.6) mg/dL Total Bilirubin 0.6 (0.0-1.0) mg/dL AST 21 (5-37) U/L ALT 15 (0-40) U/L Alkaline Phosphatase 84 (39-117) U/L Total Protein 7.6 (6.5-8.0) g/dL Albumin 4.2 (3.5-5.0) g/dL Independent Interpretation I performed an independent interpretation of an: CT Scan (soft tissue neck) Interpretation: My interpretation is in agreement with the radiologist's impression of this imaging study. Report Number: [id number]: Total DLP = 1078.00 mGy-cm EXAMINATION: CT SOFT TISSUE NECK WITH CONTRAST CLINICAL INFORMATION: Tongue swelling, possible mass in throat. COMPARISON: None available. TECHNIQUE: Following the intravenous administration of 60 mL of Omnipaque 350 intravenous contrast, helical imaging was performed in the axial plane with generation of coronal and sagittal reformatted images. This CT examination was performed using dose optimization techniques as appropriate, variously including the following: *Automated exposure control *Adjustment of mA and/or kV according to patient size (this includes techniques or standardized protocols for targeted exams where dose is matched to indication/reason for exam; i.e. extremities or head) *Use of iterative reconstruction technique FINDINGS: Lymph Nodes: -Normal. No abnormal lymphadenopathy. Carotid Sheath Structures: -Mild to moderate bilateral carotid bulb calcifications. -Carotid sheath structures otherwise normal. Salivary Glands: -Normal. Tongue Base/Floor of Mouth: -The left side of the tongue appears somewhat swollen/prominent. No definite discrete enhancing mass lesion is appreciated. Mucosal Space: -Mild hypertrophy of the palatine tonsils with right-sided tonsillolith. -No discrete enhancing mucosal space mass is identified. -The epiglottis and aryepiglottic folds are normal in appearance. Visceral Space: -Thyroid gland: Normal. -The larynx appears normal. -The subglottic trachea appears normal. -The superior esophagus appears mildly patulous. No radiopaque foreign body. Retropharangeal Space: - Normal. Parapharyngeal Fat Planes: -Normal. Ppa Teacher Spaces: -Normal. Anterior Cervical Space: -Normal. Imaged Intracranial Contents: -No mass effect, edema, or abnormal enhancement. Cortical and dural venous sinuses are patent. The skull base is normal. Globes and Orbits: -Normal. Paranasal Sinuses/Mastoids/Tympanic Spaces: -Normally aerated bilaterally. Lung Apices and Superior Mediastinal Structures: -Imaged lung apices are motion degraded however grossly clear. Mild emphysema is present. -There is a left-sided aortic arch with an a right subclavian artery. -There has been prior median sternotomy and probable CABG. Bony Structures: -No suspicious bone lesions. No fractures. -There are degenerative changes throughout the cervical spine. -Normal TM joints. CT/CT soft tissue neck w IV con IMPRESSION: 1. The left side of the tongue appears somewhat swollen/prominent although there is no discrete enhancing tongue mass, or discrete enhancing mucosal space mass identified. This should not preclude direct visualization of the oropharynx and hypopharyngeal structures. 2. No abnormal fluid collection or abscess is evident. 3. No radiopaque foreign body is evident. 4. Additional ancillary findings as discussed in the body of the report. Electronically signed by: Fuasto Rogers MD 03/21/2025 12:08 PM EDT RP Dictated By: Fausto Rogers MD Signed By: Electronically signed by Fausto Rogers MD 03/21/25 1208 Radiology Impression Discussion of test interpretation with radiology: I have reviewed the radiologist's reading. Independent Historian Clinical information obtained from an independent historian. History obtained from or confirmed by: EMS (EMS provided additional history and confirmed the history provided by the patient.) and Other (Patient's sister provided additional history and confirmed the history provided by the patient. ) External Record Review External record reviewed: Inpatient record Critical Care Time Critical Care Time Critical Care Time: Yes Total Critical Care Time: 48 Attestation: I spent 48 minutes of Critical Care Time with this patient. This does not include time spent on separately reported billable procedures. Discharge Plan Discharge Clinical Impression: Angioedema, Allergic reaction Patient Disposition: [facility] Transfer Details: [facility] Re[facility] Instructions: Antibiotic Medication Allergy (DC), Angioedema (ED) Additional Instructions: STOP taking the keflex and lisinopril. It is unclear if this swelling is secondary to an allergic reaction vs. your lisinopril use. Follow up with your primary care provider. Return to the emergency department immediately if your symptoms worsen or if you develop any numbness, tingling, dizziness, shortness of breath, difficulty breathing, chest pain, blurry vision, loss of vision, nausea, vomiting, abdominal pain, fever, chills, back pain, or any other complaints. Prescriptions: New losartan 25 mg tablet 25 mg PO DAILY Qty: 14 0RF prednisone 20 mg tablet 20 mg PO DAILY 5 Days Qty: 5 0RF famotidine 20 mg tablet 20 mg PO DAILY Qty: 5 0RF diphenhydramine HCl [Banophen] 25 mg capsule 25 mg PO DAILY Qty: 5 0RF Discontinued lisinopril 40 mg tablet 40 mg PO DAILY cephalexin 500 mg capsule 500 mg PO BID 7 Days Qty: 14 0RF No Action furosemide 40 mg tablet 40 mg PO DAILY atorvastatin 40 mg tablet 40 mg PO DAILY carvedilol 12.5 mg tablet 12.5 mg PO BID digoxin 125 mcg (0.125 mg) tablet 125 mcg PO DAILY thiamine HCl (vitamin B1) [Vitamin B-1] 250 mg Tablet 250 mg PO BID aspirin 81 mg Tablet,Delayed Release (Dr/Ec) 81 mg PO DAILY amlodipine 10 mg tablet 10 mg PO DAILY melatonin 5 mg Tablet 5 mg PO BEDTIME folic acid 1 mg Tablet 1 mg PO DAILY Qty: 1 0RF tamsulosin 0.4 mg capsule 0.4 mg PO BEDTIME Qty: 90 2RF finasteride 5 mg tablet 5 mg PO DAILY Qty: 90 2RF Referrals: Donna Mcbride MD [Primary Care Provider] - Print Language: Frisian
--- NOTE | 2025-03-21 09:24 | PC.NURSE ---
Pt to ED 3 via EMS from [facility], recent d/c with abx for UTI. Pt reports tounge swelling since taking abx x 4 days. Pt awake an alert, tounge with moderate swelling. Respirations even and unlabored, pt denies any difficulty breathing.
[2025-03-21 09:29] LABS: MANUAL DIFF FLAG NO
[2025-03-21] MEDS: Famotidine/PF 20 MG/2 ML VIAL IVPUSH (09:29)
[2025-03-21] MEDS: EPINEPHrine 1 MG/ML VIAL 0.3 MG SUBCUT (09:30)
[2025-03-21 09:32] LABS: Basophils Percent Auto 0.3 % (0-2); Eosinophils Absolute Auto 0.3 X10*3/uL (0.0-0.4); Eosinophils Percent Auto 2.4 % (0-4); Hematocrit 38.9 % (42.0-52.0); Hemoglobin 13.5 g/dl (14.0-18.0); Imm Gran Abs Auto 0.06 X10*3/uL (0.00-0.03); Imm Gran Pct Auto 0.5 % (0.0-0.4); Lymphocytes Absolute Auto 1.6 X10*3/uL (1.2-4.9); Lymphocytes Percent Auto 12.9 % (20-40); Mean Corpuscular HGB Conc 34.7 g/dl (31.0-36.0); Mean Corpuscular Hemoglobin 32.1 pg (27.0-33.0); Mean Corpuscular Volume 92.6 fL (80.0-98.0); Mean Platelet Volume 9.2 fL (9.4-12.4); Monocytes Absolute Auto 0.6 X10*3/uL (0.1-1.2); Monocytes Percent Auto 4.5 % (2-11); Neutrophils Absolute Auto 9.7 x10*3/uL (2.0-8.3); Neutrophils Percent Auto 79.4 % (45-73); Platelet Count 350 X10*3/uL (160-400); Red Cell Distribution Width 11.7 % (11.0-16.0); White Blood Count 12.3 X10*3/uL (4.8-10.8)
[2025-03-21 09:48] LABS: Alanine Aminotransferase 15 U/L (0-40); Albumin Level 4.2 g/dL (3.5-5.0); Alkaline Phosphatase 84 U/L (39-117); Anion Gap 15 (12-20); Aspartate Amino Transferase 21 U/L (5-37); Bilirubin Total 0.6 mg/dL (0.0-1.0); Blood Urea Nitrogen 14 mg/dL (9-16); Calcium 9.8 mg/dL (8.4-10.2); Carbon Dioxide 27 mmol/L (22-29); Chloride 102 mmol/L (96-108); Creatinine Clr Calc Pharmacy 102.1; Estimated Glomerular Filt Rate > 60; Glucose Random 163 mg/dL (60-115); Magnesium 1.7 mg/dL (1.6-2.6); Sodium 140 mmol/L (135-145); Total Protein 7.6 g/dL (6.5-8.0)
--- OUTSIDE RECORDS SUMMARY | 2025-03-21 10:18 | XMS_ITS | Encounter Summary ---
Author Organization [facility] Address [address] [place] [address] Care Team Providers Care Manager Speech Name Role Phone Av Weathers Primary Care Provider [phone] Encounter Details Date Type Department Care Team (Late st Contact Info) Description 03/04/2025 Lab Requisition [facility] - Main Lab [address] [place] [address] Smitha Mcbride MD [address] [id number] Rhabdomyolysis Social History Tobacco Use Types Packs/Day [...] for your loved ones. For example, child guidance counselor or elderly care for an older adult? [...] 8:30 AM EDT Office Visit Adult Medicine [facility] [address] [place] [address] Av Weathers PA [address] [place] [address] documented as of this encounter Procedures Procedure Name Priority Date/Time Associated Diagnosis Comments COMPLETE BLOOD COUNT Routine 03/04/2025 10:36 AM EDT Rhabdomyolysis BASIC METABOLIC PANEL Routine 03/04/2025 10:36 AM EDT Rhabdomyolysis documented in this encounter Results * (ABNORMAL) Complete blood count (03/04/2025 10:36 AM EDT) WBC 9.2 4.8 - 10.8 K/mcL LAB HEMETOLOG[facility] RBC 4.00(L) 4.50 - 5.50 M/mcL LAB HEMETOLOGY METHOD 03/04/2025 1:[address] [facility] Hemoglobin 12.6(L) 13.5 - 17.5 g/dL LAB HEMETOLOGY METHOD 03/04/2025 1:[address] [facility] Hematocrit 39.6(L) 42.0 - 54.0 % LAB HEMETOLOGY METHOD 03/04/2025 1:[address] [facility] MCV 99.0(H) 79.0 - 98.0 FL LAB HEMETOLOGY METHOD 03/04/2025 1:[address] [facility] MCH 31.5 27.0 - 32.0 pcg LAB HEMETOLOGY METHOD 03/04/2025 1:[address] [facility] MCHC 31.8(L) 32.0 - 37.0 g/dL LAB HEMETOLOGY METHOD 03/04/2025 1:[address] [facility] RDW 11.9 11.0 - 15.0 % LAB HEMETOLOGY METHOD 03/04/2025 1:[address] [facility] Platelets 340 130 - 400 K/mcL LAB HEMETOLOGY METHOD 03/04/2025 1:[address] [facility] MPV 10.2 7.0 - 11.0 FL LAB HEMETOLOGY METHOD 03/04/2025 1:[address] [facility] NRBC 0.0 <1.0 % LAB HEMETOLOGY METHOD 03/04/2025 1:[address] [facility] NRBC Absolute 0.00 <0.10 K/mcL LAB HEMETOLOGY METHOD 03/04/2025 1:[address] [facility] Blood Venous blood specimen / Unknown Venipuncture / Unknown 03/04/2025 10:36 AM EDT 03/04/2025 11:34 AM EDT us Smitha Mcbride MD LAB BLOOD ORDERABLES Fin al Result [facility] [address] [place] [address], * (ABNORMAL) Basic metabolic panel (03/04/2025 10:36 AM EDT) Sodium 136 133 - 145 mmol/L LAB CHEMISTRY METHOD 03/04/2025 1:[address] [facility] Potassium 4.3 3.5 - 5.5 mmol/L LAB CHEMISTRY METHOD 03/04/2025 1:[address] [facility] Chloride 104 96 - 110 mmol/L LAB CHEMISTRY METHOD 03/04/2025 1:[address] [facility] CO2 24 21 - 32 mmol/L LAB CHEMISTRY METHOD 03/04/2025 1:[address] [facility] Anion Gap 8 3 - 11 LAB CHEMISTRY METHOD 03/04/2025 1:[address] [facility] Glucose 114(H) 70 - 100 mg/dL LAB CHEMISTRY METHOD 03/04/2025 1:[address] [facility] BUN 17 5 - 25 mg/dL LAB CHEMISTRY METHOD 03/04/2025 1:[address] [facility] Creatinine 0.74 0.70 - 1.30 mg/dL LAB CHEMISTRY METHOD 03/04/2025 1:27 PM EDT [facility] eGFR 93 >=60 mL/min/1. 73m2 LAB CHEMISTRY METHOD 03/04/2025 1:27 PM EDT [facility] Comment:Calculation based on the Chronic Kidney Disease Epidemiology Collaboration (CKD-EPI) equation refit without adjustment for race. BUN/Creatinine Ratio 23.0 LAB CHEMISTRY METHOD 03/04/2025 1:27 PM EDT [facility] Calcium 9.4 8.5 - 10.5 mg/dL LAB CHEMISTRY METHOD 03/04/2025 1:27 PM EDT [facility] Blood Venous blood specimen / Unknown Venipuncture / Unknown 03/04/2025 10:36 AM EDT 03/04/2025 11:34 AM EDT us Smitha Mcbride MD LAB BLOOD ORDERABLES Fin al Result [facility] [address] [place] [address], documented in this encounter Visit Diagnoses Diagnosis Rhabdomyolysis documented in this encounter Additional Health Concerns Assessment Noted Time PHQ-9 Depression Total Score: 0 01/17/20 25 8:47 AM EDT A fall risk assessment has been complete d for the patient 01/16/2025 8:47 AM EDT documented as of this encounter Care Teams Manager Speech Relationship Specialty Start Date End Date Av Weathers PA [address] [place] [id number] PCP - General Internal Medicine 12/12/20 documented as of this encounter
--- NOTE | 2025-03-21 12:28 | MHC.EDTECH ---
lopez emptied 1600 ml. RN aware
== END 2025-03-21 15:24 | disposition skilled nursing facility (03) ==
PROVIDERS: Physician Assistant Medical; Emergency Provider Emergency Medicine Emergency Medical Services; PCP Internal Medicine
DX: T78.3XXA Angioneurotic edema, initial encounter (principal); T36.1X5A Adverse effect of cephalosporins and other beta-lactam antibiotics, initial encounter; Y92.129 Unspecified place in nursing home as the place of occurrence of the external cause; Z87.440 Personal history of urinary (tract) infections; Z79.82 Long term (current) use of aspirin; Z79.899 Other long term (current) drug therapy
CPT/HCPCS: 36415; 70491; 80053; 83735; 85025; 96372; 96374; 96375; 99284; J0171; J1308; J2919

== ENCOUNTER → 2025-03-21 09:12 | Outpatient (BNV) | payer MEDICARE, SELFPAY | PROVIDERS: Emergency Provider Emergency Medicine Emergency Medical Services; PCP Internal Medicine; Visit Provider Radiology Diagnostic Radiology | DX: K14.8 Other diseases of tongue (principal) | CPT/HCPCS: 70491 ==

== ENCOUNTER 2025-04-13 09:52 | Outpatient (REF) | payer MEDICARE, SELFPAY ==
--- NOTE | ~2025-04-13 | US_ITS ---
CLINICAL HISTORY: N50.89 - Other specified disorders of the male genital organs US Scrotum with Doppler Comparison: US - US SCROTUM - 01/31/25 16:[address]/SR - CT ABDOMEN PELVIS WO IV CON - 01/30/25 17:08 EDT Findings: Right testicle normal echotexture, 4.9 x 1.7 x 2.9 cm. Left testicle normal echotexture, 4.2 x 1.9 x 3.1 cm. Normal color flow and arterial/venous spectral tracing of the left testicle. The aviation safety equipment technician has only included in arterial tracing of the right testicle. Left epididymal cysts. Large complex right hydrocele similar in appearance to the patient's prior CT IMPRESSION: Large complex right scrotal fluid collection similar to the prior CT and ultrasound. Additional large simple appearing left hydrocele, also unchanged from the patient's prior ultrasound. This document has been electronically signed by: Meseret Muñiz MD on 04/14/2025 09:22:17
--- OUTSIDE RECORDS SUMMARY | 2025-04-13 10:24 | XMS_ITS | Encounter Summary ---
Author Organization [facility] Address [address] [place] [address] Care Team Providers Care Rent And Miscellaneous Remittance Clerk Name Role Phone Av Weathers Primary Care Provider [phone] Encounter Details Date Type Department Care Team (Late st Contact Info) Description 03/04/2025 Lab Requisition [facility] - Main Lab [address] [facility] [place] [address] Smitha Mcbride MD [address] [phone] Rhabdomyolysis Social History Tobacco Use Types Packs/Day [...] for your loved ones. For example, child development consultant or elderly care for an older adult? [...] 8:30 AM EDT Office Visit Adult Medicine [facility] [address] [place] [address] Av Weathers PA [address] [place] [address] documented as of this encounter Procedures Procedure Name Priority Date/Time Associated Diagnosis Comments COMPLETE BLOOD COUNT Routine 03/04/2025 10:36 AM EDT Rhabdomyolysis BASIC METABOLIC PANEL Routine 03/04/2025 10:36 AM EDT Rhabdomyolysis documented in this encounter Results * (ABNORMAL) Complete blood count (03/04/2025 10:36 AM EDT) WBC 9.2 4.8 - 10.8 K/mcL LAB [facility] RBC 4.00(L) 4.50 - 5.50 M/mcL LAB HEMETOLOGY METHOD 03/04/2025 1:08 PM [facility] Hemoglobin 12.6(L) 13.5 - 17.5 g/dL LAB HEMETOLOGY METHOD 03/04/2025 1:08 PM [facility] Hematocrit 39.6(L) 42.0 - 54.0 % LAB HEMETOLOGY METHOD 03/04/2025 1:08 PM [facility] MCV 99.0(H) 79.0 - 98.0 FL LAB HEMETOLOGY METHOD 03/04/2025 1:08 PM [facility] MCH 31.5 27.0 - 32.0 pcg LAB HEMETOLOGY METHOD 03/04/2025 1:08 PM [facility] MCHC 31.8(L) 32.0 - 37.0 g/dL LAB HEMETOLOGY METHOD 03/04/2025 1:08 PM [facility] RDW 11.9 11.0 - 15.0 % LAB HEMETOLOGY METHOD 03/04/2025 1:08 PM [facility] Platelets 340 130 - 400 K/mcL LAB HEMETOLOGY METHOD 03/04/2025 1:08 PM [facility] MPV 10.2 7.0 - 11.0 FL LAB HEMETOLOGY METHOD 03/04/2025 1:08 PM [facility] NRBC 0.0 <1.0 % LAB HEMETOLOGY METHOD 03/04/2025 1:08 PM [facility] NRBC Absolute 0.00 <0.10 K/mcL LAB HEMETOLOGY METHOD 03/04/2025 1:08 PM [facility] Blood Venous blood specimen / Unknown Venipuncture / Unknown 03/04/2025 10:36 AM EDT 03/04/2025 11:34 AM EDT us Smitha Mcbride MD LAB BLOOD ORDERABLES Fin al Result [facility] [address] [place] [address], * (ABNORMAL) Basic metabolic panel (03/04/2025 10:36 AM EDT) Sodium 136 133 - 145 mmol/L LAB CHEMISTRY METHOD 03/04/2025 1:27 PM [facility] Potassium 4.3 3.5 - 5.5 mmol/L LAB CHEMISTRY METHOD 03/04/2025 1:27 PM [facility] Chloride 104 96 - 110 mmol/L LAB CHEMISTRY METHOD 03/04/2025 1:27 PM [facility] CO2 24 21 - 32 mmol/L LAB CHEMISTRY METHOD 03/04/2025 1:27 PM [facility] Anion Gap 8 3 - 11 LAB CHEMISTRY METHOD 03/04/2025 1:27 PM [facility] Glucose 114(H) 70 - 100 mg/dL LAB CHEMISTRY METHOD 03/04/2025 1:27 PM [facility] BUN 17 5 - 25 mg/dL LAB CHEMISTRY METHOD 03/04/2025 1:27 PM [facility] Creatinine 0.74 0.70 - 1.30 mg/dL LAB CHEMISTRY METHOD 03/04/2025 1:27 PM EDT [facility] eGFR 93 >=60 mL/min/1. 73m2 LAB CHEMISTRY METHOD 03/04/2025 1:27 PM EDT [facility] Comment:Calculation based on the Chronic Kidney Disease Epidemiology Collaboration (CKD-EPI) equation refit without adjustment for race. BUN/Creatinine Ratio 23.0 LAB CHEMISTRY METHOD 03/04/2025 1:27 PM EDT [facility] Calcium 9.4 8.5 - 10.5 mg/dL LAB CHEMISTRY METHOD 03/04/2025 1:27 PM EDT [facility] Blood Venous blood specimen / Unknown Venipuncture / Unknown 03/04/2025 10:36 AM EDT 03/04/2025 11:34 AM EDT us Smitha Mcbride MD LAB BLOOD ORDERABLES Fin al Result [facility] [address] [place] [address], documented in this encounter Visit Diagnoses Diagnosis Rhabdomyolysis documented in this encounter Additional Health Concerns Assessment Noted Time PHQ-9 Depression Total Score: 0 01/17/20 25 8:47 AM EDT A fall risk assessment has been complete d for the patient 01/16/2025 8:47 AM EDT documented as of this encounter Care Teams Rent And Miscellaneous Remittance Clerk Relationship Specialty Start Date End Date Av Weathers PA [address] [place] [id number] PCP - General Internal Medicine 12/12/20 documented as of this encounter
== END 2025-04-13 09:53 | disposition home or self-care (01) ==
LOC: HO.HMGCX 09:52
PROVIDERS: PCP Physician Assistant Medical; Visit Provider Urology
DX: N50.89 Other specified disorders of the male genital organs (principal)
CPT/HCPCS: 76870

== ENCOUNTER → 2025-04-13 10:01 | Outpatient (BNV) | payer MEDICARE, SELFPAY | PROVIDERS: PCP Physician Assistant Medical; Visit Provider Radiology Diagnostic Radiology | DX: N50.3 Cyst of epididymis (principal) | CPT/HCPCS: 76870 ==

== ENCOUNTER 2025-04-20 09:36 | Outpatient (AMB) | payer MEDICARE, SELFPAY ==
--- NOTE | 2025-04-19 21:58 | MHC.OFFVIS ---
Intake Visit Reasons: cysto/US Intake Note: Patient presents today for cystoscopy/US Urology Medication:Finasteride, Tamsulosin Blood Thinner:Aspirin Antibiotic Allergies:None Allergies cephalexin (From Keflex) Allergy (Severe, Verified 04/20/25 10:20) Angioedema Medication List - Last Reconciled 04/20/25 by Lien Patterson MD aspirin 81 mg PO DAILY atorvastatin 40 mg PO DAILY carvedilol 12.5 mg PO BID digoxin 125 mcg PO DAILY diphenhydramine HCl (Banophen) 25 mg PO DAILY famotidine 20 mg PO DAILY finasteride 5 mg PO DAILY folic acid 1 mg PO DAILY furosemide 40 mg PO DAILY levofloxacin 500 mg PO Q24H 10 days losartan 25 mg PO DAILY prednisone 20 mg PO DAILY 5 days tamsulosin 0.4 mg PO BEDTIME HPI Comments Details: 04/20/25--FU cystoscopy not done due to nitrite positive urine. 04/13/25--Scrotal US--Large complex right scrotal fluid collection similar to the prior CT and ultrasound. Additional large simple appearing left hydrocele, also unchanged from the patient's prior ultrasound. History of Present Illness - The patient is a 79-year-old male presenting with urinary retention and scrotal swelling due to bilateral hydroceles. Iatrogenic hypospadias due to chronic lopez catheter - the patient's sister states he was treated with an antibiotic that cause an allergic reaction, and review of the chart Keflex was prescribed I have added it to his allergy list. - A urinary tract infection is suspected, urine is nitrite positive and further testing is planned to confirm the diagnosis. - The patient has a history of urinary retention, possibly related to an enlarged prostate, necessitating catheterization. - An ultrasound revealed bilateral hydroceles right greater than left,, an epididymal cyst, and a complex right hydrocele Plan--- Lopez catheter changed today 16 [place]. Antibiotics sent to the pharmacy. Urine culture, follow-up in 2-3 weeks for a voiding trial with nursing, follow-up in 5 to 8 weeks for right hydrocele aspiration with nurse practitioner, prescription for finasteride and tamsulosin sent with his paperwork to the care facility. 03/06/25--Jameel is a 79-year-old male who was initially evaluated as an inpatient urology consult for scrotal edema, urinary retention and UTI. He currently has a Lopez and is here for voiding trial. The patient failed voiding trial and a 16 [place] catheter was placed. History of Present Illness The patient is a 79-year-old male presenting with urinary retention and scrotal swelling. He was initially assessed in the hospital for urinary retention and was diagnosed with a urinary tract infection. Tamsulosin and Finasteride treatment for benign prostatic hyperplasia was started in the hospital. The patient experienced urinary retention, resulting in catheterization. The patient remains in a rehabilitation facility due to limited ambulation. I discussed with the patient the current management of urinary retention, which requires further intervention, including the continued use of a Lopez catheter. We explored the necessity for a follow-up visit to perform cystoscopy and assess the condition of the urethra and prostate in more detail and I will repeat a scrotal ultrasound. ON LICENSE OF [facility] Medical History Hepatic steatosis Cerumen impaction Cervical spondylosis CVA (cerebral vascular accident) ETOH abuse Afib Surgical History History of ankle surgery Hx of CABG Social History Household Members: None Housing: Apartment Do you presently have visiting nurse or other home services: Yes (niece/motel maid 2-3hrs a day) Alcohol intake: current Alcohol intake frequency: 0-2 drinks per day Alcohol type: beer Patient Tobacco Use Status: Never used Tobacco Advance Directives Date on File: 06/13/24 service: No Review of Systems Const All systems reviewed & are unremarkable except as noted in HPI and below Reports no additional complaints Eyes Reports no additional complaints ENT Reports no additional complaints Card Reports no additional complaints Resp Reports no additional complaints GI Reports no additional complaints Reports as per HPI Musc Reports no additional complaints Skin/Breast Reports system reviewed and no additional complaints, except as documented Neuro Reports no additional complaints Psych Reports no additional complaints Endo Reports no additional complaints Toby/Lymph Reports no additional complaints Aller/Immun Reports no additional complaints Office Procedures Bladder/Catheter Procedure Details: 16 Fr lopez catheter removed and new 16 Fr lopez catheter with 10ml and night bag replaced. Patient tolerated exchange with no issues. 1x dose of ciprofloxacin given po in office per Dr. Alarcon. Patient to f/u in 2 weeks for voiding trial with nursing. [id number] Cystotomy Tube, complicated Procedure code (CPT) selection complete Results Reviewed Results Reviewed: Date of Service: 04/13/25 Procedure(s): US scrotum Accession Number(s): [id number] cc: Lien Patterson MD; Av Weathers~ CLINICAL HISTORY: N50.89 - Other specified disorders of the male genital organs US Scrotum with Doppler Comparison: US - US SCROTUM - 01/31/25 16:[address]/SR - CT ABDOMEN PELVIS WO IV CON - 01/30/25 17:08 EDT Findings: Right testicle normal echotexture, 4.9 x 1.7 x 2.9 cm. Left testicle normal echotexture, 4.2 x 1.9 x 3.1 cm. Normal color flow and arterial/venous spectral tracing of the left testicle. The personal development educator has only included in arterial tracing of the right testicle. Left epididymal cysts. Large complex right hydrocele similar in appearance to the patient's prior CT IMPRESSION: Large complex right scrotal fluid collection similar to the prior CT and ultrasound. Additional large simple appearing left hydrocele, also unchanged from the patient's prior ultrasound. Assessment & Plan Assessment & Plan (1) Scrotal swelling: Code(s): N50.89 - Other specified disorders of the male genital organs Category: Medical (2) Urinary retention: Code(s): R33.9 - Retention of urine, unspecified Category: Medical (3) Enlarged prostate: Code(s): N40.0 - Benign prostatic hyperplasia without lower urinary tract symptoms Category: Medical (4) Bilateral hydrocele: Code(s): N43.3 - Hydrocele, unspecified Category: Medical (5) Recurrent UTI: Code(s): N39.0 - Urinary tract infection, site not specified Category: Medical (6) Hypospadias, penile: Code(s): Q54.1 - Hypospadias, penile Category: Medical Plan Plan--- Lopez catheter changed today 16 [place]. Antibiotics sent to the pharmacy. Urine culture, follow-up in 2-3 weeks for a voiding trial with nursing, follow-up in 5 to 8 weeks for right hydrocele aspiration with nurse practitioner, prescription for finasteride and tamsulosin sent with his paperwork to the care facility. Orders: Orders AMB Bladder/Catheter Procedure Today N39.0 - Urinary tract infection, site not specified, R33.9 - Retention of urine, unspecified Medications: New levofloxacin 500 mg PO Q24H 10 tabs 0RF 10 days Refilled finasteride 5 mg PO DAILY 90 tabs 2RF tamsulosin 0.4 mg PO BEDTIME 90 caps 2RF Scribe Plan - Not visible on output: Patient was informed and verbally consented to the use of an ambient scribe for clinic note documentation during this visit. Coding Level of Care Code Est Pt Level 4 (05976) Diagnoses Scrotal swelling N50.89 Urinary retention R33.9 Enlarged prostate N40.0 Bilateral hydrocele N43.3 Recurrent UTI N39.0 Hypospadias, penile Q54.1 CPT Codes Bladder/Catheter Procedure - CPT: 68349-[id number] Cystotomy Tube, complicated ([id number])
--- OUTSIDE RECORDS SUMMARY | 2025-04-20 09:53 | XMS_ITS | Encounter Summary ---
Author Organization [facility] Address [address] [place] [address] Care Team Providers Care Workday Manager Name Role Phone Av Weathers Primary Care Provider +1 [phone] Encounter Details Date Type Department Care Team (Late st Contact Info) Description 03/04/2025 Lab Requisition [facility] - Main Lab [address] [facility] [place] [address] Smitha Mcbride MD [address] [id number] Rhabdomyolysis Social History Tobacco Use Types Packs/Day [...] care for your loved ones. For example, special needs child caregiver or elderly care for an older adult? [...] 8:30 AM EDT Office Visit Adult Medicine [facility] [address] [place] [address] Av Weathers PA [address] [place] [address] documented as of this encounter Procedures Procedure Name Priority Date/Time Associated Diagnosis Comments COMPLETE BLOOD COUNT Routine 03/04/2025 10:36 AM EDT Rhabdomyolysis BASIC METABOLIC PANEL Routine 03/04/2025 10:36 AM EDT Rhabdomyolysis documented in this encounter Results * (ABNORMAL) Complete blood count (03/04/2025 10:36 AM EDT) WBC 9.2 4.8 - 10.8 K/mcL LAB HEMETOLOGY METHOD [facility] RBC 4.00(L) 4.50 - 5.50 M/mcL LAB HEMETOLOGY METHOD 03/04/2025 1:08 PM [facility] Hemoglobin 12.6(L) 13.5 - 17.5 g/dL LAB HEMETOLOGY METHOD 03/04/2025 1:08 PM [facility] Hematocrit 39.6(L) 42.0 - 54.0 % LAB HEMETOLOGY METHOD 03/04/2025 1:08 PM [facility] MCV 99.0(H) 79.0 - 98.0 FL LAB HEMETOLOGY METHOD 03/04/2025 1:08 PM [facility] MCH 31.5 27.0 - 32.0 pcg LAB HEMETOLOGY METHOD 03/04/2025 1:08 PM [facility] MCHC 31.8(L) 32.0 - 37.0 g/dL LAB HEMETOLOGY METHOD 03/04/2025 1:08 PM [facility] RDW 11.9 11.0 - 15.0 % LAB HEMETOLOGY METHOD 03/04/2025 1:08 PM [facility] Platelets 340 130 - 400 K/mcL LAB HEMETOLOGY METHOD 03/04/2025 1:08 PM [facility] MPV 10.2 7.0 - 11.0 FL LAB HEMETOLOGY METHOD 03/04/2025 1:08 PM [facility] NRBC 0.0 <1.0 % LAB HEMETOLOGY METHOD 03/04/2025 1:08 PM [facility] NRBC Absolute 0.00 <0.10 K/mcL LAB HEMETOLOGY METHOD 03/04/2025 1:08 PM [facility] Blood Venous blood specimen / Unknown Venipuncture / Unknown 03/04/2025 10:36 AM EDT 03/04/2025 11:34 AM EDT us Smitha Mcbride MD LAB BLOOD ORDERABLES Fin al Result [facility] [address] [place] [address], * (ABNORMAL) Basic metabolic panel (03/04/2025 10:36 AM EDT) Sodium 136 133 - 145 mmol/L LAB CHEMISTRY METHOD 03/04/2025 1:27 PM [facility] Potassium 4.3 3.5 - 5.5 mmol/L LAB CHEMISTRY METHOD 03/04/2025 1:27 PM [facility] Chloride 104 96 - 110 mmol/L LAB CHEMISTRY METHOD 03/04/2025 1:27 PM [facility] CO2 24 21 - 32 mmol/L LAB CHEMISTRY METHOD 03/04/2025 1:27 PM [facility] Anion Gap 8 3 - 11 LAB CHEMISTRY METHOD 03/04/2025 1:27 PM [facility] Glucose 114(H) 70 - 100 mg/dL LAB CHEMISTRY METHOD 03/04/2025 1:27 PM [facility] BUN 17 5 - 25 mg/dL LAB CHEMISTRY METHOD 03/04/2025 1:27 PM [facility] Creatinine 0.74 0.70 - 1.30 [...] al Result [facility] [address] [place] [address], documented in this encounter Visit Diagnoses Diagnosis Rhabdomyolysis documented in this encounter Additional Health Concerns Assessment Noted Time PHQ-9 Depression Total Score: 0 01/17/20 25 8:47 AM EDT A fall risk assessment has been complete d for the patient 01/16/2025 8:47 AM EDT documented as of this encounter Care Teams Workday Manager Relationship Specialty Start Date End Date Av Weathers PA [address] [place] [id number] PCP - General Internal Medicine 12/12/20 documented as of this encounter
== END 2025-04-20 10:50 | disposition home or self-care (01) ==
LOC: HO.HUSH 09:36
PROVIDERS: PCP Physician Assistant Medical; Visit Provider Urology
DX: N50.89 Other specified disorders of the male genital organs (principal); R33.9 Retention of urine, unspecified; N40.0 Benign prostatic hyperplasia without lower urinary tract symptoms; N43.3 Hydrocele, unspecified; N39.0 Urinary tract infection, site not specified; Q54.1 Hypospadias, penile; Z13.9 Encounter for screening, unspecified
CPT/HCPCS: 51710; 99214

== ENCOUNTER → 2025-04-20 09:36 | Outpatient (BNVA) | payer MEDICARE, SELFPAY | PROVIDERS: PCP Physician Assistant Medical; Visit Provider Urology | DX: N50.89 Other specified disorders of the male genital organs (principal); N40.0 Benign prostatic hyperplasia without lower urinary tract symptoms; N43.3 Hydrocele, unspecified; R33.9 Retention of urine, unspecified; N39.0 Urinary tract infection, site not specified; Q54.1 Hypospadias, penile | CPT/HCPCS: 51710; 81003; 99212 ==

== ENCOUNTER → 2025-05-10 09:04 | Outpatient (BNVA) | payer MEDICARE, SELFPAY | PROVIDERS: PCP Physician Assistant Medical; Visit Provider Urology | DX: R33.9 Retention of urine, unspecified (principal); N39.0 Urinary tract infection, site not specified | CPT/HCPCS: 51700; 51798 ==

== ENCOUNTER 2025-08-03 08:45 | Outpatient (AMB) | payer MEDICARE, SELFPAY ==
--- NOTE | 2025-08-03 08:46 | MHC.OFFVIS ---
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 Required: No Allergies cephalexin (From Keflex) Allergy (Severe, Verified 08/03/25 09:36) Angioedema Medication List - Last Reconciled 08/03/25 by AMAN Luis- aspirin 81 mg PO DAILY atorvastatin 40 mg PO DAILY carvedilol 12.5 mg PO BID digoxin 125 mcg PO DAILY diphenhydramine HCl (Banophen) 25 mg PO DAILY famotidine 20 mg PO DAILY finasteride 5 mg PO DAILY folic acid 1 mg PO DAILY furosemide 40 mg PO DAILY levofloxacin 500 mg PO Q24H 10 days losartan 25 mg PO DAILY prednisone 20 mg PO DAILY 5 days tamsulosin 0.4 mg PO BEDTIME HPI Comments Details: González is a pleasant 79-year-old male patient of Dr. Davis who was accompanied by his sister at today's office visit. He has a past medical history of hepatitis steatosis, cervical spondylosis, CVA, ETOH abuse, and atrial fibrillation. He presents to the office today for right-sided hydrocele drainage. In office right hydrocele was drained for 300 cc. Patient tolerated procedure well. Of note, patient had previously followed up with Dr. Ashish lindo for his history of urinary tract infections, scrotal swelling, and urinary retention. He does have a history of urinary retention with an indwelling Sol catheter. We did review other treatment options to include suprapubic tube as patient was noted to have urethral erosion on exam today. Patient is a poor historian and much of today's history is provided by his sister. In review of patient's MAR as patient currently resides in [facility] it does appear he is compliant with finasteride and Flomax as prescribed. In review of previous office notes it does appear patient has had a history of previous failed voiding trials. We did discuss potential causes of urinary retention as well as further treatment options and risks and benefits of these treatment options. In review of patient's chart it appears PSA 01/27 11.2. All questions were answered. Procedure : Hydrocele drainage performed in office Consent verified Indications for procedure: right hydrocele Anesthesia: local anesthetic Procedure: The patient was placed in the supine position the hydrocele was examined and verified The cord was grasped between 2 fingers using a pinching technique The skin was cleaned with alcohol wipe Local anesthetic was infiltrated in a fan-like fashion to ensure adequate distribution Attention was directed to the hydrocele itself The hydrocele was elevated using the left hand Betadine was used to sterilize the overlying skin A small anesthetic bleb was raised An 18 gauge Angiocath was inserted to the hydrocele Total drainage 300 cc of straw-colored fluid A lidocaine/doxycycline mixture was then slowly injected into the hydrocele space A total of 8 cc lidocaine and 200 mg of doxycycline was utilized Patient tolerated the procedure well with minimal discomfort CPT 93100 [facility] Medical History Hepatic steatosis Cerumen impaction Cervical spondylosis CVA (cerebral vascular accident) ETOH abuse Afib Surgical History History of ankle surgery Hx of CABG Social History Household Members: None Housing: Apartment Do you presently have visiting nurse or other home services: Yes (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) Alcohol intake: current Alcohol intake frequency: 0-2 drinks per day Alcohol type: beer Patient Tobacco Use Status: Never used Tobacco Advance Directives Date on File: 06/13/24 service: No Review of Systems Const All systems reviewed & are unremarkable except as noted in HPI and below Physical Exam Const General: cooperative, comfortable, no acute distress and well developed Nutritional Appearance: overweight Orientation/consciousness: oriented to person Limitations: wheelchair HEENT Head: Yes normal to inspection Eyes General: appearance normal, both eyes and all related structures Neck Neck: Yes normal visual inspection Chest Chest palpation & inspection: normal inspection of the chest Resp Effort & Inspection: normal respiratory effort and able to speak in complete sentences Cardio Rate: regular rate GI Inspection: Yes normal to inspection and Yes Abdominal panniculus present Other: as per HPI Skin General skin exam: no rashes or lesions noted Neuro General: oriented to person Extrem General: Yes normal to inspection Psych Appearance: well kempt Speech and movement: Clear speech present Affect: normal affect Attitude: cooperative Thought content: Normal thought content present Insight: Limited insight present (Psych) and Poor insight present (Psych) Judgement: Limited judgement present (Psych) and Poor judgement present (Psych) Office Procedures Post Void Residual Post Residual Void Post Void Residual (PVR): 0 [id number]-[id number] Void Residual by ultrasound Assessment & Plan Assessment & Plan (1) Recurrent UTI: Code(s): N39.0 - Urinary tract infection, site not specified Category: Medical (2) Urinary retention: Code(s): R33.9 - Retention of urine, unspecified Category: Medical (3) Bilateral hydrocele: Code(s): N43.3 - Hydrocele, unspecified Category: Medical (4) Elevated PSA: Code(s): R97.20 - Elevated prostate specific antigen [PSA] Category: Medical Plan In office hydrocele drainage was performed patient tolerated procedure well; as noted above. Continue finasteride and Flomax as prescribed. We did discussed further treatment options of urinary retention and risks and benefits of these treatment options. We discussed potential SPT tube given urethral erosion; information was provided. Will redraw PSA. All questions were answered. Follow-up in 1 month with PSA; or sooner with any issues, concerns, and or questions. Orders: Orders PSA,Total (Free>4and<10) Today R97.20 - Elevated prostate specific antigen [PSA] Patient Instructions: The patient had an opportunity to ask questions regarding the treatment plan. All questions were answered. Physical exam, labs, and imaging were discussed and reviewed in detail. As well as risks, benefits, and discussion of treatment choices. No major barriers to understanding were identified. The patient expressed understanding and agreement with the above treatment plan. The patient was made aware they should contact our office by phone for worsening of their current condition, the appearance of new symptoms, or with any questions or concerns. Compliance is encouraged with any medications and follow up testing that is ordered. It is a privilege to be allowed the opportunity to participate in? your urological care.? Again, if you have any questions or concerns If you have any questions or concerns please do not hesitate to contact me. The office is [phone]. This note is constructed using voice recognition software. While every effort has been made to ensure accuracy process control engineer errors may have been included. Yours sincerely, MARK Luis Coding Level of Care Code Est Pt Level 4 (05633) Complex EM visit Add On G2211 Diagnoses Recurrent UTI N39.0 Urinary retention R33.9 Bilateral hydrocele N43.3 Elevated PSA R97.20 CPT Codes Post Residual Void - PVR CPT Code: 55010-Yyvw Void Residual by ultrasound ([id number]) Time Spent (min) 45
--- OUTSIDE RECORDS SUMMARY | 2025-08-03 09:36 | XMS_ITS | Encounter Summary ---
Author Organization [facility] Address [address] [place] [address] Care Team Providers Care Vineyardist Name Role Phone Av Weathers Primary Care Provider [phone] [phone] Encounter Details Date Type Department Care Team (Late st Contact Info) Description 03/04/2025 Lab Requisition [facility] - Main Lab 299 [facility] [place] [address] Smitha Mcbride MD [address] [phone] Rhabdomyolysis Social History Tobacco Use Types Packs/Day [...] for your loved ones. For example, child advocate or elderly care for an older adult? [...] Date Recorded What is your living situation? Unrecognized valu e 01/16/2025 Sex and Gender Information Value Date Recorded Sex Assigned at Not on file Legal Sex Male 10:55 AM EST Gender Identity Not on file Sexual Orientation Not on file documented as of this encounter Plan of Treatment Not on file documented as of this encounter Procedures Procedure Name Priority Date/Time Associated Diagnosis Comments COMPLETE BLOOD COUNT Routine 03/04/2025 10:36 AM EDT Rhabdomyolysis BASIC METABOLIC PANEL Routine 03/04/2025 10:36 AM EDT Rhabdomyolysis documented in this encounter Results * (ABNORMAL) Complete blood count (03/04/2025 10:36 AM EDT) WBC 9.2 4.8 - 10.8 K/[facility] LAB HEMETOLOGY METHOD 03/04/2025 1:08 PM [facility] LAB RBC 4.00(L) 4.50 - 5.50 M/mcL LAB HEMETOLOGY METHOD 03/04/2025 1:08 PM [facility] Hemoglobin 12.6(L) 13.5 - 17.5 g/dL LAB HEMETOLOGY METHOD 03/04/2025 1:08 PM [facility] LAB Hematocrit 39.6(L) 42.0 - 54.0 % LAB HEMETOLOGY METHOD 03/04/2025 1:08 PM [facility] LAB MCV 99.0(H) 79.0 - 98.0 FL LAB HEMETOLOGY METHOD 03/04/2025 1:08 PM [facility] LAB MCH 31.5 27.0 - 32.0 pcg LAB HEMETOLOGY METHOD 03/04/2025 1:08 PM [facility] LAB MCHC 31.8(L) 32.0 - 37.0 g/dL LAB HEMETOLOGY METHOD 03/04/2025 1:08 PM [facility] RDW 11.9 11.0 - 15.0 % LAB HEMETOLOGY METHOD 03/04/2025 1:08 PM [facility] Platelets 340 130 - 400 K/mcL LAB HEMETOLOGY METHOD 03/04/2025 1:08 PM [facility] LAB MPV 10.2 7.0 - 11.0 FL LAB HEMETOLOGY METHOD 03/04/2025 1:08 PM [facility] LAB NRBC 0.0 <1.0 % LAB HEMETOLOGY METHOD 03/04/2025 1:08 PM [facility] NRBC Absolute 0.00 <0.10 K/mcL LAB HEMETOLOGY METHOD 03/04/2025 1:08 PM [facility] Blood Venous blood specimen / Unknown Venipuncture / Unknown 03/04/2025 10:36 AM EDT 03/04/2025 11:34 AM EDT us Smitha Mcbride MD LAB BLOOD ORDERABLES Fin al Result [facility] [address] [place] [address], * (ABNORMAL) Basic metabolic panel (03/04/2025 10:36 AM EDT) [facility] Sodium 136 133 - 145 mmol/L LAB CHEMISTRY METHOD 03/04/2025 1:27 PM [facility] Potassium 4.3 3.5 - 5.5 mmol/L LAB CHEMISTRY METHOD 03/04/2025 1:27 PM [facility] Chloride 104 96 - 110 mmol/L LAB CHEMISTRY METHOD 03/04/2025 1:27 PM [facility] CO2 24 21 - 32 mmol/L LAB CHEMISTRY METHOD 03/04/2025 1:27 PM [facility] Anion Gap 8 3 - 11 LAB CHEMISTRY METHOD 03/04/2025 1:27 PM [facility] Glucose 114(H) 70 - 100 mg/dL LAB CHEMISTRY METHOD 03/04/2025 1:27 PM [facility] BUN 17 5 - 25 mg/dL LAB CHEMISTRY METHOD 03/04/2025 1:27 PM [facility] Creatinine 0.74 0.70 - 1.30 mg/dL LAB CHEMISTRY METHOD 03/04/2025 1:27 PM [facility] LAB eGFR 93 >=60 mL/min/1. 73m2 LAB CHEMISTRY METHOD 03/04/2025 1:27 PM [facility] LAB Comment:Calculation based on the Chronic Kidney Disease Epidemiology Collaboration (CKD-EPI) equation refit without adjustment for race. BUN/Creatinine Ratio 23.0 LAB CHEMISTRY METHOD 03/04/2025 1:27 PM EDT [facility] Calcium 9.4 8.5 - 10.5 mg/dL LAB CHEMISTRY METHOD 03/04/2025 1:27 PM EDT [facility] Blood Venous blood specimen / Unknown Venipuncture / Unknown 03/04/2025 10:36 AM EDT 03/04/2025 11:34 AM EDT us Smitha Mcbride MD LAB BLOOD ORDERABLES Fin al Result [facility] [address] [place] [address], documented in this encounter Visit Diagnoses Diagnosis Rhabdomyolysis documented in this encounter Additional Health Concerns Assessment Noted Time PHQ-9 Depression Total Score: 0 01/17/20 25 8:47 AM EDT A fall risk assessment has been complete d for the patient 01/16/2025 8:47 AM EDT documented as of this encounter Care Teams Vineyardist Relationship Specialty Start Date End Date Av Weathers PA [address] [place] [id number] PCP - General Internal Medicine 12/12/20 documented as of this encounter
--- OUTSIDE RECORDS SUMMARY | 2025-08-03 09:36 | XMS_ITS | Encounter Summary ---
Author Organization [facility] Address [address] [place] [address] Care Team Providers Care Gypsum Block Setter Name Role Phone Av Weathers Primary Care Provider [phone] [phone] Encounter Details Date Type Department Care Team (Late st Contact Info) Description 05/12/2025 Lab Requisition [facility] - Main Lab 299 [facility] [place] [address] Smitha Mcbride MD [address] [phone] Rhabdomyolysis Social History Tobacco Use Types Packs/Day [...] for your loved ones. For example, child welfare assistant or elderly care for an older adult? [...] Associated Diagnosis Comments COMPLETE BLOOD COUNT Routine 05/15/2025 8:53 AM EDT Rhabdomyolysis BASIC METABOLIC PANEL Routine 05/15/2025 8:53 AM EDT Rhabdomyolysis documented in this encounter Results * Complete blood count (05/15/2025 8:53 AM EDT) WBC 8.9 4.8 - 10.8 K/[facility] LAB HEMETOLOGY METHOD 05/15/2025 11:56 AM [facility] RBC 4.50 4.50 - 5.50 M/mcL LAB HEMETOLOGY METHOD 05/15/2025 11:56 AM [facility] Hemoglobin 14.1 13.5 - 17.5 g/dL LAB HEMETOLOGY METHOD 05/15/2025 11:56 AM [facility] LAB Hematocrit 42.2 42.0 - 54.0 % LAB HEMETOLOGY METHOD 05/15/2025 11:56 AM [facility] LAB MCV 93.4 79.0 - 98.0 FL LAB HEMETOLOGY METHOD 05/15/2025 11:56 AM [facility] LAB MCH 31.2 27.0 - 32.0 pcg LAB HEMETOLOGY METHOD 05/15/2025 11:56 AM [facility] LAB MCHC 33.4 32.0 - 37.0 g/dL LAB HEMETOLOGY METHOD 05/15/2025 11:56 AM [facility] RDW 12.0 11.0 - 15.0 % LAB HEMETOLOGY METHOD 05/15/2025 11:56 AM [facility] Platelets 310 130 - 400 K/mcL LAB HEMETOLOGY METHOD 05/15/2025 11:56 AM [facility] MPV 10.0 7.0 - 11.0 FL LAB HEMETOLOGY METHOD 05/15/2025 11:56 AM [facility] NRBC 0.0 <1.0 % LAB HEMETOLOGY METHOD 05/15/2025 11:56 AM [facility] LAB NRBC Absolute 0.00 <0.10 K/mcL LAB HEMETOLOGY METHOD 05/15/2025 11:56 AM [facility] Blood Venous blood specimen / Unknown Venipuncture / Unknown 05/15/2025 8:53 AM EDT 05/15/2025 11:12 AM EDT us Smitha Mcbride MD LAB BLOOD ORDERABLES Fin al Result [facility] [address] [place] [address], [place] [phone] * (ABNORMAL) Basic metabolic panel (05/15/2025 8:53 AM EDT) Pathologist [facility] Sodium 138 133 - 145 mmol/L LAB CHEMISTRY METHOD 05/15/2025 12:10 PM [facility] Potassium 3.7 3.5 - 5.5 mmol/L LAB CHEMISTRY METHOD 05/15/2025 12:10 PM [facility] Chloride 102 96 - 110 mmol/L LAB CHEMISTRY METHOD 05/15/2025 12:10 PM [facility] CO2 29 21 - 32 mmol/L LAB CHEMISTRY METHOD 05/15/2025 12:10 PM [facility] Anion Gap 7 3 - 11 LAB CHEMISTRY METHOD 05/15/2025 12:10 PM [facility] Glucose 115(H) 70 - 100 mg/dL LAB CHEMISTRY METHOD 05/15/2025 12:10 PM [facility] BUN 13 5 - 25 mg/dL LAB CHEMISTRY METHOD 05/15/2025 12:10 PM [facility] Creatinine 0.79 0.70 - 1.30 mg/dL LAB CHEMISTRY METHOD 05/15/2025 12:10 PM [facility] eGFR 91 >=60 mL/min/1. 73m2 LAB CHEMISTRY METHOD 05/15/2025 12:10 PM [facility] Comment:Calculation based on the Chronic Kidney Disease Epidemiology Collaboration (CKD-EPI) equation refit without adjustment for race. BUN/Creatinine Ratio 16.5 LAB CHEMISTRY METHOD 05/15/2025 12:10 PM [facility] Calcium 9.4 8.5 - 10.5 mg/dL LAB CHEMISTRY METHOD 05/15/2025 12:10 PM EDT [facility] Blood Venous blood specimen / Unknown Venipuncture / Unknown 05/15/2025 8:53 AM EDT 05/15/2025 11:12 AM EDT us Smitha Mcbride MD LAB BLOOD ORDERABLES Fin al Result [facility] [address] [place] [address], documented in this encounter Visit Diagnoses Diagnosis Rhabdomyolysis documented in this encounter Additional Health Concerns Assessment Noted Time PHQ-9 Depression Total Score: 0 01/17/20 25 8:47 AM EDT A fall risk assessment has been complete d for the patient 01/16/2025 8:47 AM EDT documented as of this encounter Care Teams Gypsum Block Setter Relationship Specialty Start Date End Date Av Weathers PA [address] [place] [address] PCP - General Internal Medicine 12/12/20 documented as of this encounter
--- OUTSIDE RECORDS SUMMARY | 2025-08-03 09:36 | XMS_ITS | Encounter Summary ---
Author Organization [facility] Address [address] [place] [address] Care Team Providers Care Revival Clerk Name Role Phone Av Weathers Primary Care Provider [phone] [phone] Encounter Details Date Type Department Care Team (Late st Contact Info) Description 06/19/2025 Lab Requisition [facility] - Main Lab [address] [facility] [place] [address] Smitha Mcbride MD [address] [phone] Other ferry terminal agent (current) drug therapy Social History Tobacco Use Types Packs/Day Years [...] your loved ones. For example, child and adolescent psychologist or elderly care for an older adult? [...] Procedure Name Priority Date/Time Associated Diagnosis Comments DIGOXIN LEVEL Routine 06/19/2025 8:56 AM EDT Other ferry terminal agent (current) drug therapy documented in this encounter Results * Digoxin level (06/19/2025 8:56 AM EDT) Digoxin Lvl 0.7 0.5 - 2.0 ng/mL LAB CHEMISTRY METHOD 06/19/2025 2:07 PM EDT [facility] Blood Venous blood specimen / Unknown Venipuncture / Unknown 06/19/2025 8:56 AM EDT 06/19/2025 11:28 AM EDT us Smitha Mcbride MD LAB BLOOD ORDERABLES Fin al Result [facility] [address] [place] [address], documented in this encounter Visit Diagnoses Diagnosis Other ferry terminal agent (current) drug therapy documented in this encounter Additional Health Concerns Assessment Noted Time PHQ-9 Depression Total Score: 0 01/17/20 25 8:47 AM EDT A fall risk assessment has been complete d for the patient 01/16/2025 8:47 AM EDT documented as of this encounter Care Teams Revival Clerk Relationship Specialty Start Date End Date Av Weathers PA [address] [place] [address] PCP - General Internal Medicine 12/12/20 documented as of this encounter
--- OUTSIDE RECORDS SUMMARY | 2025-08-03 09:36 | XMS_ITS | Encounter Summary ---
Author Organization [facility] Address [address] [place] [address] Care Team Providers Care Traffic Manager Name Role Phone Av Weathers Primary Care Provider [phone] [phone] Encounter Details Date Type Department Care Team (Late st Contact Info) Description 05/21/2025 Lab Requisition [facility] - Main Lab 299 [facility] [place] [address] Smitha Mcbride MD [address] [phone] Rhabdomyolysis Social History Tobacco Use Types Packs/Day [...] Associated Diagnosis Comments COMPLETE BLOOD COUNT Routine 05/22/2025 5:42 AM EDT Rhabdomyolysis BASIC METABOLIC PANEL Routine 05/22/2025 5:42 AM EDT Rhabdomyolysis documented in this encounter Results * (ABNORMAL) Complete blood count (05/22/2025 5:42 AM EDT) WBC 9.5 4.8 - 10.8 K/[facility] LAB HEMETOLOGY METHOD 05/22/2025 1:07 PM [facility] LAB RBC 4.10(L) 4.50 - 5.50 M/mcL LAB HEMETOLOGY METHOD 05/22/2025 1:07 PM [facility] Hemoglobin 12.6(L) 13.5 - 17.5 g/dL LAB HEMETOLOGY METHOD 05/22/2025 1:07 PM [facility] LAB Hematocrit 38.9(L) 42.0 - 54.0 % LAB HEMETOLOGY METHOD 05/22/2025 1:07 PM [facility] LAB MCV 94.2 79.0 - 98.0 FL LAB HEMETOLOGY METHOD 05/22/2025 1:07 PM [facility] LAB MCH 30.5 27.0 - 32.0 pcg LAB HEMETOLOGY METHOD 05/22/2025 1:07 PM [facility] LAB MCHC 32.4 32.0 - 37.0 g/dL LAB HEMETOLOGY METHOD 05/22/2025 1:07 [facility] LAB RDW 12.3 11.0 - 15.0 % LAB HEMETOLOGY METHOD 05/22/2025 1:07 PM [facility] LAB Platelets 265 130 - 400 K/mcL LAB HEMETOLOGY METHOD 05/22/2025 1:07 PM [facility] LAB MPV 10.2 7.0 - 11.0 FL LAB HEMETOLOGY METHOD 05/22/2025 1:07 PM [facility] LAB NRBC 0.0 <1.0 % LAB HEMETOLOGY METHOD 05/22/2025 1:07 PM [facility] LAB NRBC Absolute 0.00 <0.10 K/mcL LAB HEMETOLOGY METHOD 05/22/2025 1:07 PM [facility] Blood Venous blood specimen / Unknown Venipuncture / Unknown 05/22/2025 5:42 AM EDT 05/22/2025 11:11 AM EDT us Smitha Mcbride MD LAB BLOOD ORDERABLES Fin al Result [facility] [address] [place] [address], [place] [phone] * (ABNORMAL) Basic metabolic panel (05/22/2025 5:42 AM EDT) Sodium 139 133 - 145 mmol/L LAB CHEMISTRY METHOD 05/22[facility]2025 12:45 [facility] Potassium 3.5 3.5 - 5.5 mmol/L LAB CHEMISTRY METHOD 05/22/2025 12:45 PM [facility] Chloride 102 96 - 110 mmol/L LAB CHEMISTRY METHOD 05/22/2025 12:45 PM [facility] CO2 28 21 - 32 mmol/L LAB CHEMISTRY METHOD 05/22/2025 12:45 PM [facility] Anion Gap 9 3 - 11 LAB CHEMISTRY METHOD 05/22/2025 12:45 PM [facility] Glucose 142(H) 70 - 100 mg/dL LAB CHEMISTRY METHOD 05/22/2025 12:45 PM [facility] BUN 17 5 - 25 mg/dL LAB CHEMISTRY METHOD 05/22/2025 12:45 PM [facility] Creatinine 0.84 0.70 - 1.30 mg/dL LAB CHEMISTRY METHOD 05/22/2025 12:45 PM [facility] LAB eGFR 90 >=60 mL/min/1. 73m2 LAB CHEMISTRY METHOD 05/22/2025 12:45 PM [facility] Comment:Calculation based on the Chronic Kidney Disease Epidemiology Collaboration (CKD-EPI) equation refit without adjustment for race. BUN/Creatinine Ratio 20.2 LAB CHEMISTRY METHOD 05/22/2025 12:45 PM EDT [facility] Calcium 9.4 8.5 - 10.5 mg/dL LAB CHEMISTRY METHOD 05/22/2025 12:45 PM EDT [facility] Blood Venous blood specimen / Unknown Venipuncture / Unknown 05/22/2025 5:42 AM EDT 05/22/2025 11:11 AM EDT us Smitha Mcbride MD LAB BLOOD ORDERABLES Fin al Result [facility] [address] [place] [address], documented in this encounter Visit Diagnoses Diagnosis Rhabdomyolysis documented in this encounter Additional Health Concerns Assessment Noted Time PHQ-9 Depression Total Score: 0 01/17/20 25 8:47 AM EDT A fall risk assessment has been complete d for the patient 01/16/2025 8:47 AM EDT documented as of this encounter Care Teams Traffic Manager Relationship Specialty Start Date End Date Av Weathers PA [address] [place] [address] PCP - General Internal Medicine 12/12/20 documented as of this encounter
--- OUTSIDE RECORDS SUMMARY | 2025-08-03 09:36 | XMS_ITS | Encounter Summary ---
Author Organization [facility] Address [address] [place] [address] Care Team Providers Care Audio/Visual Operator Name Role Phone Av Weathers Primary Care Provider +1 [phone] Encounter Details Date Type Department Care Team (Late st Contact Info) Description 06/02/[address] [facility] - Main Lab 299 [facility] [place] [address] Smitha Mcbride MD [address] [phone] Rhabdomyolysis Social History Tobacco Use Types Packs/Day [...] for your loved ones. For example, child care associate teacher or elderly care for an older adult? [...] Associated Diagnosis Comments COMPLETE BLOOD COUNT Routine 06/06/2025 9:39 AM EDT Rhabdomyolysis BASIC METABOLIC PANEL Routine 06/06/2025 9:39 AM EDT Rhabdomyolysis documented in this encounter Results * (ABNORMAL) Complete blood count (06/06/2025 9:39 AM EDT) WBC 8.0 4.8 - 10.8 K/[facility] LAB HEMETOLOGY METHOD 06/06/2025 1:27 PM [facility] RBC 4.40(L) 4.50 - 5.50 M/mcL LAB HEMETOLOGY METHOD 06/06/2025 1:27 PM [facility] Hemoglobin 13.5 13.5 - 17.5 g/dL LAB HEMETOLOGY METHOD 06/06/2025 1:27 PM [facility] Hematocrit 40.8(L) 42.0 - 54.0 % LAB HEMETOLOGY METHOD 06/06/2025 1:27 PM [facility] MCV 92.9 79.0 - 98.0 FL LAB HEMETOLOGY METHOD 06/06/2025 1:27 PM [facility] MCH 30.8 27.0 - 32.0 pcg LAB HEMETOLOGY METHOD 06/06/2025 1:27 PM [facility] MCHC 33.1 32.0 - 37.0 g/dL LAB HEMETOLOGY METHOD 06/06/2025 1:27 PM [facility] RDW 12.0 11.0 - 15.0 % LAB HEMETOLOGY METHOD 06/06/2025 1:27 PM [facility] Platelets 312 130 - 400 K/mcL LAB HEMETOLOGY METHOD 06/06/2025 1:27 PM [facility] MPV 9.9 7.0 - 11.0 FL LAB HEMETOLOGY METHOD 06/06/2025 1:27 PM [facility] NRBC 0.0 <1.0 % LAB HEMETOLOGY METHOD 06/06/2025 1:27 PM [facility] NRBC Absolute 0.00 <0.10 K/mcL LAB HEMETOLOGY METHOD 06/06/2025 1:27 PM [facility] Blood Venous blood specimen / Unknown Venipuncture / Unknown 06/06/2025 9:39 AM EDT 06/06/2025 12:36 PM EDT us Smitha Mcbride MD LAB BLOOD ORDERABLES Fin al Result [facility] [address] [place] [address], [place] [phone] * (ABNORMAL) Basic metabolic panel (06/06/2025 9:39 AM EDT) Pathologist [facility] Sodium 136 133 - 145 mmol/L LAB CHEMISTRY METHOD 06/06/2025 7:01 PM [facility] Potassium 3.6 3.5 - 5.5 mmol/L LAB CHEMISTRY METHOD 06/06/2025 7:01 PM [facility] Chloride 99 96 - 110 mmol/L LAB CHEMISTRY METHOD 06/06/2025 7:01 PM [facility] CO2 28 21 - 32 mmol/L LAB CHEMISTRY METHOD 06/06/2025 7:01 PM [facility] Anion Gap 9 3 - 11 LAB CHEMISTRY METHOD 06/06/2025 7:01 PM [facility] Glucose 208(H) 70 - 100 mg/dL LAB CHEMISTRY METHOD 06/06/2025 7:01 PM [facility] BUN 16 5 - 25 mg/dL LAB CHEMISTRY METHOD 06/06/2025 7:01 PM [facility] Creatinine 0.89 0.70 - 1.30 mg/dL LAB CHEMISTRY METHOD 06/06/2025 7:01 PM [facility] eGFR 88 >=60 mL/min/1. 73m2 LAB CHEMISTRY METHOD 06/06/2025 7:01 PM [facility] Comment:Calculation based on the Chronic Kidney Disease Epidemiology Collaboration (CKD-EPI) equation refit without adjustment for race. BUN/Creatinine Ratio 18.0 LAB CHEMISTRY METHOD 06/06/2025 7:01 PM EDT [facility] Calcium 9.4 8.5 - 10.5 mg/dL LAB CHEMISTRY METHOD 06/06/2025 7:01 PM EDT [facility] Blood Venous blood specimen / Unknown Venipuncture / Unknown 06/06/2025 9:39 AM EDT 06/06/2025 12:36 PM EDT us Smitha Mcbride MD LAB BLOOD ORDERABLES Fin al Result [facility] [address] [place] [address], documented in this encounter Visit Diagnoses Diagnosis Rhabdomyolysis documented in this encounter Additional Health Concerns Assessment Noted Time PHQ-9 Depression Total Score: 0 01/17/20 25 8:47 AM EDT A fall risk assessment has been complete d for the patient 01/16/2025 8:47 AM EDT documented as of this encounter Care Teams Audio/Visual Operator Relationship Specialty Start Date End Date Av Weathers PA [address] [place] [address] PCP - General Internal Medicine 12/12/20 documented as of this encounter
--- OUTSIDE RECORDS SUMMARY | 2025-08-03 09:36 | XMS_ITS | Encounter Summary ---
Author Organization [facility] Address [address] [place] [address] Care Team Providers Care Spiral Gear Generator Name Role Phone Av Weathers Primary Care Provider +1 [phone] Encounter Details Date Type Department Care Team (Late st Contact Info) Description 04/23/2025 Lab Requisition [facility] - Main Lab 299 [facility] [place] [address] Smitha Mcbride MD [address] [phone] Rhabdomyolysis Social History Tobacco Use Types Packs/Day [...] care for your loved ones. For example, children's zoo caretaker or elderly care for an older adult? [...] Associated Diagnosis Comments COMPLETE BLOOD COUNT Routine 04/24/2025 6:09 AM EDT Rhabdomyolysis BASIC METABOLIC PANEL Routine 04/24/2025 6:09 AM EDT Rhabdomyolysis documented in this encounter Results * (ABNORMAL) Complete blood count (04/24/2025 6:09 AM EDT) WBC 11.1(H) 4.8 - 10.8 K/mcL LAB HEMETOLOGY METHOD 04/24/2025 12:25 PM [facility] RBC 4.00(L) 4.50 - 5.50 M/mcL LAB HEMETOLOGY METHOD 04/24/2025 12:25 PM [facility] Hemoglobin 12.3(L) 13.5 - 17.5 g/dL LAB HEMETOLOGY METHOD 04/24/2025 12:25 PM [facility] Hematocrit 38.2(L) 42.0 - 54.0 % LAB HEMETOLOGY METHOD 04/24/2025 12:25 PM [facility] LAB MCV 96.7 79.0 - 98.0 FL LAB HEMETOLOGY METHOD 04/24/2025 12:25 PM [facility] MCH 31.1 27.0 - 32.0 pcg LAB HEMETOLOGY METHOD 04/24/2025 12:25 PM [facility] LAB MCHC 32.2 32.0 - 37.0 g/dL LAB HEMETOLOGY METHOD 04/24/2025 12:25 PM [facility] RDW 12.3 11.0 - 15.0 % LAB HEMETOLOGY METHOD 04/24/2025 12:25 PM [facility] Platelets 348 130 - 400 K/mcL LAB HEMETOLOGY METHOD 04/24/2025 12:25 PM [facility] LAB MPV 9.8 7.0 - 11.0 FL LAB HEMETOLOGY METHOD 04/24/2025 12:25 PM [facility] NRBC 0.0 <1.0 % LAB HEMETOLOGY METHOD 04/24/2025 12:25 PM [facility] NRBC Absolute 0.00 <0.10 K/mcL LAB HEMETOLOGY METHOD 04/24/2025 12:25 PM [facility] Blood Venous blood specimen / Unknown Venipuncture / Unknown 04/24/2025 6:09 AM EDT 04/24/2025 11:35 AM EDT us Smitha Mcbride MD LAB BLOOD ORDERABLES Fin al Result [facility] [address] [place] [address], [place] [phone] * (ABNORMAL) Basic metabolic panel (04/24/2025 6:09 AM EDT) Pathologist [facility] Sodium 142 133 - 145 mmol/L LAB CHEMISTRY METHOD 04/24/2025 2:01 PM [facility] Potassium 3.6 3.5 - 5.5 mmol/L LAB CHEMISTRY METHOD 04/24/2025 2:01 PM [facility] Chloride 103 96 - 110 mmol/L LAB CHEMISTRY METHOD 04/24/2025 2:01 PM [facility] CO2 28 21 - 32 mmol/L LAB CHEMISTRY METHOD 04/24/2025 2:01 PM [facility] Anion Gap 11 3 - 11 LAB CHEMISTRY METHOD 04/24/2025 2:01 PM [facility] Glucose 108(H) 70 - 100 mg/dL LAB CHEMISTRY METHOD 04/24/2025 2:01 PM [facility] BUN 18 5 - 25 mg/dL LAB CHEMISTRY METHOD 04/24/2025 2:01 PM [facility] Creatinine 0.93 0.70 - 1.30 mg/dL LAB CHEMISTRY METHOD 04/24/2025 2:01 PM [facility] eGFR 85 >=60 mL/min/1. 73m2 LAB CHEMISTRY METHOD 04/24/2025 2:01 PM [facility] Comment:Calculation based on the Chronic Kidney Disease Epidemiology Collaboration (CKD-EPI) equation refit without adjustment for race. BUN/Creatinine Ratio 19.4 LAB CHEMISTRY METHOD 04/24/2025 2:01 PM EDT [facility] Calcium 9.3 8.5 - 10.5 mg/dL LAB CHEMISTRY METHOD 04/24/2025 2:01 PM EDT [facility] Blood Venous blood specimen / Unknown Venipuncture / Unknown 04/24/2025 6:09 AM EDT 04/24/2025 11:35 AM EDT us Smitha Mcbride MD LAB BLOOD ORDERABLES Fin al Result [facility] [address] [place] [address], documented in this encounter Visit Diagnoses Diagnosis Rhabdomyolysis documented in this encounter Additional Health Concerns Assessment Noted Time PHQ-9 Depression Total Score: 0 01/17/20 25 8:47 AM EDT A fall risk assessment has been complete d for the patient 01/16/2025 8:47 AM EDT documented as of this encounter Care Teams Spiral Gear Generator Relationship Specialty Start Date End Date Av Weathers PA [address] [place] [id number] PCP - General Internal Medicine 12/12/20 documented as of this encounter
--- OUTSIDE RECORDS SUMMARY | 2025-08-03 09:36 | XMS_ITS | Encounter Summary ---
Author Organization [facility] Address [address] [place] [address] Care Team Providers Care Appliance Tester Name Role Phone Av Weathers Primary Care Provider [phone] [phone] Encounter Details Date Type Department Care Team (Late st Contact Info) Description 08/01/2025 Lab Requisition [facility] - Main Lab 299 [facility] [place] [address] Smitha Mcbride MD [address] [phone] Hematuria, unspecified Social History Tobacco Use Types Packs/Day Years [...] for your loved ones. For example, children's lunchroom supervisor or elderly care for an older adult? [...] as of this encounter Plan of Treatment Pending Results Name Type Priority Associated Diagnoses Date /Time Culture urine Microbiology Routine Hematuria, unspecified 07/31/2025 12:00 AM EDT documented as of this encounter Procedures Procedure Name Priority Date/Time Associated Diagnosis Comments URINALYSIS WITH REFLEX MICROSCOPIC Routine 07/31/2025 12:00 AM EDT Hematuria, unspecified URINALYSIS WITH REFLEX MICROSCOPIC Routine 07/31/2025 12:00 AM EDT Hematuria, unspecified CULTURE URINE Routine 07/31/2025 12:00 AM EDT Hematuria, unspecified documented in this encounter Results * (ABNORMAL) Urinalysis with reflex microscopic (07/31/2025 12:00 AM EDT) Specific [place] Urine 1.016 1.003 - 1.030 LAB URINALYSIS - AUTOMATED METHOD 08/01/2025 12:27 PM [facility] pH, Urine 6.5 5.0 - 8.0 pH LAB URINALYSIS - AUTOMATED METHOD 08/01/2025 12:27 PM [facility] Leukocytes, Urine Large(A) Negative LAB URINALYSIS - AUTOMATED METHOD 08/01/2025 12:27 PM [facility] Nitrite, Urine Negative Negative LAB URINALYSIS - AUTOMATED METHOD 08/01/2025 12:27 PM [facility] Protein, Urine 100(A) <=Trace mg/dL LAB URINALYSIS - AUTOMATED METHOD 08/01/2025 12:27 PM [facility] Glucose, Urine Negative Negative mg/dL LAB URINALYSIS - AUTOMATED METHOD 08/01/2025 12:27 PM [facility] Ketones, Urine Negative Negative mg/dL LAB URINALYSIS - AUTOMATED METHOD 08/01/2025 12:27 PM [facility] Urobilinogen , Urine 1.0 0.2 - 1.0 mg/dL LAB URINALYSIS - AUTOMATED METHOD 08/01/2025 12:27 PM [facility] Bilirubin, Urine Negative Negative LAB URINALYSIS - AUTOMATED METHOD 08/01/2025 12:27 PM [facility] Blood, Urine Large(A) Negative LAB URINALYSIS - AUTOMATED METHOD 08/01/2025 12:27 PM [facility] RBC, Urine 300.0(H) 0 - 4 /HPF LAB URINALYSIS - AUTOMATED METHOD 08/01/2025 12:27 PM [facility] WBC, Urine 565.7(H) 0 - 4 /HPF LAB URINALYSIS - AUTOMATED METHOD 08/01/2025 12:27 PM EDT [facility] Squamous Epithelial, Urine 18 0 - 60 /LPF LAB URINALYSIS - AUTOMATED METHOD 08/01/2025 12:27 PM EDT [facility] Crystals, Urine LT CALCIUM OXALATE /LPF LAB UR[facility]ALYSIS - [facility]OMATED [facility] Bacteria, Urine Few(A) Negative /HPF LAB URINALYSIS - AUTOMATED METHOD 08/01/2025 12:27 PM EDT [facility] Hyaline Casts, Urine 3.0 0 - 3 /LPF LAB URINALYSIS - AUTOMATED METHOD 08/01/2025 12:27 PM [facility] Urine Urine specimen obtained by clean catch procedure / Unknown Non-blood Collection / Unknown 07/31/2025 08/01/2025 11:04 AM EDT us Smitha Mcbride MD LAB URINE ORDERABLES Fin al Result [facility] [address] [place] [address], documented in this encounter Visit Diagnoses Diagnosis Hematuria, unspecified documented in this encounter Additional Health Concerns Assessment Noted Time PHQ-9 Depression Total Score: 0 01/17/20 25 8:47 AM EDT A fall risk assessment has been complete d for the patient 01/16/2025 8:47 AM EDT documented as of this encounter Care Teams Appliance Tester Relationship Specialty Start Date End Date Av Weathers PA [address] [place] [address] PCP - General Internal Medicine 12/12/20 documented as of this encounter
--- OUTSIDE RECORDS SUMMARY | 2025-08-03 09:36 | XMS_ITS | Encounter Summary ---
Author Organization [facility] Address [address] [place] [address] Care Team Providers Care Repairer Helper Name Role Phone Av Weathers Primary Care Provider [phone] [phone] Encounter Details Date Type Department Care Team (Late st Contact Info) Description 04/14/2025 Lab Requisition [facility] - Main Lab 299 [facility] [place] [address] Smitha Mcbride MD [address] [phone] Rhabdomyolysis Social History Tobacco Use Types Packs/Day [...] care for your loved ones. For example, summer child caregiver or elderly care for an [...] Associated Diagnosis Comments COMPLETE BLOOD COUNT Routine 04/17/2025 6:51 AM EDT Rhabdomyolysis BASIC METABOLIC PANEL Routine 04/17/2025 6:51 AM EDT Rhabdomyolysis documented in this encounter Results * (ABNORMAL) Complete blood count (04/17/2025 6:51 AM EDT) WBC 8.7 4.8 - 10.8 K/[facility] LAB HEMETOLOGY METHOD 04/17/2025 1:31 PM [facility] RBC 3.70(L) 4.50 - 5.50 M/mcL LAB HEMETOLOGY METHOD 04/17/2025 1:31 PM [facility] Hemoglobin 11.7(L) 13.5 - 17.5 g/dL LAB HEMETOLOGY METHOD 04/17/2025 1:31 PM [facility] Hematocrit 36.8(L) 42.0 - 54.0 % LAB HEMETOLOGY METHOD 04/17/2025 1:31 PM [facility] LAB MCV 99.7(H) 79.0 - 98.0 FL LAB HEMETOLOGY METHOD 04/17/2025 1:31 PM [facility] LAB MCH 31.7 27.0 - 32.0 pcg LAB HEMETOLOGY METHOD 04/17/2025 1:31 PM [facility] MCHC 31.8(L) 32.0 - 37.0 g/dL LAB HEMETOLOGY METHOD 04/17/2025 1:31 PM [facility] RDW 12.3 11.0 - 15.0 % LAB HEMETOLOGY METHOD 04/17/2025 1:31 PM [facility] Platelets 370 130 - 400 K/mcL LAB HEMETOLOGY METHOD 04/17/2025 1:31 PM [facility] MPV 10.0 7.0 - 11.0 FL LAB HEMETOLOGY METHOD 04/17/2025 1:31 PM [facility] NRBC 0.0 <1.0 % LAB HEMETOLOGY METHOD 04/17/2025 1:31 PM [facility] NRBC Absolute 0.00 <0.10 K/mcL LAB HEMETOLOGY METHOD 04/17/2025 1:31 PM [facility] Blood Venous blood specimen / Unknown Venipuncture / Unknown 04/17/2025 6:51 AM EDT 04/17/2025 10:30 AM EDT us Smitha Mcbride MD LAB BLOOD ORDERABLES Fin al Result [facility] [address] [place] [address], [place] [phone] * (ABNORMAL) Basic metabolic panel (04/17/2025 6:51 AM EDT) [facility] Sodium 142 133 - 145 mmol/L LAB CHEMISTRY METHOD 04/17/2025 3:07 PM [facility] Potassium 3.7 3.5 - 5.5 mmol/L LAB CHEMISTRY METHOD 04/17/2025 3:07 PM [facility] Chloride 105 96 - 110 mmol/L LAB CHEMISTRY METHOD 04/17/2025 3:07 PM [facility] CO2 32 21 - 32 mmol/L LAB CHEMISTRY METHOD 04/17/2025 3:07 PM [facility] Anion Gap 5 3 - 11 LAB CHEMISTRY METHOD 04/17/2025 3:07 PM [facility] Glucose 117(H) 70 - 100 mg/dL LAB CHEMISTRY METHOD 04/17/2025 3:07 PM [facility] BUN 18 5 - 25 mg/dL LAB CHEMISTRY METHOD 04/17/2025 3:07 PM [facility] Creatinine 0.79 0.70 - 1.30 mg/dL LAB CHEMISTRY METHOD 04/17/2025 3:07 PM [facility] eGFR 91 >=60 mL/min/1. 73m2 LAB CHEMISTRY METHOD 04/17/2025 3:07 PM [facility] Comment:Calculation based on the Chronic Kidney Disease Epidemiology Collaboration (CKD-EPI) equation refit without adjustment for race. BUN/Creatinine Ratio 22.8 LAB CHEMISTRY METHOD 04/17/2025 3:07 PM EDT [facility] Calcium 9.3 8.5 - 10.5 mg/dL LAB CHEMISTRY METHOD 04/17/2025 3:07 PM EDT [facility] Blood Venous blood specimen / Unknown Venipuncture / Unknown 04/17/2025 6:51 AM EDT 04/17/2025 10:30 AM EDT us Smitha Mcbride MD LAB BLOOD ORDERABLES Fin al Result [facility] [address] [place] [address], documented in this encounter Visit Diagnoses Diagnosis Rhabdomyolysis documented in this encounter Additional Health Concerns Assessment Noted Time PHQ-9 Depression Total Score: 0 01/17/20 25 8:47 AM EDT A fall risk assessment has been complete d for the patient 01/16/2025 8:47 AM EDT documented as of this encounter Care Teams Repairer Helper Relationship Specialty Start Date End Date Av Weathers PA [address] [place] [address] PCP - General Internal Medicine 12/12/20 documented as of this encounter
--- OUTSIDE RECORDS SUMMARY | 2025-08-03 09:36 | XMS_ITS | Encounter Summary ---
Author Organization [facility] Address [address] [place] [address] Care Team Providers Care Cement Truck Driver Name Role Phone Av Weathers Primary Care Provider +1 [phone] Encounter Details Date Type Department Care Team (Late st Contact Info) Description 05/27/2025 Lab Requisition [facility] - Main Lab 299 [facility] [place] [address] Smitha Mcbride MD [address] [phone] Rhabdomyolysis Social History Tobacco Use Types Packs/Day [...] for your loved ones. For example, children's service supervisor or elderly care for an older [...] Associated Diagnosis Comments COMPLETE BLOOD COUNT Routine 05/29/2025 7:07 AM EDT Rhabdomyolysis BASIC METABOLIC PANEL Routine 05/29/2025 7:07 AM EDT Rhabdomyolysis documented in this encounter Results * Complete blood count (05/29/2025 7:07 AM EDT) WBC 10.1 4.8 - 10.8 K/[facility] LAB HEMETOLOGY METHOD 05/29/2025 11:01 AM [facility] RBC 4.70 4.50 - 5.50 M/mcL LAB HEMETOLOGY METHOD 05/29/2025 11:01 AM [facility] Hemoglobin 14.1 13.5 - 17.5 g/dL LAB HEMETOLOGY METHOD 05/29/2025 11:01 AM [facility] Hematocrit 43.0 42.0 - 54.0 % LAB HEMETOLOGY METHOD 05/29/2025 11:01 AM [facility] MCV 92.3 79.0 - 98.0 FL LAB HEMETOLOGY METHOD 05/29/2025 11:01 AM [facility] MCH 30.3 27.0 - 32.0 pcg LAB HEMETOLOGY METHOD 05/29/2025 11:01 AM [facility] MCHC 32.8 32.0 - 37.0 g/dL LAB HEMETOLOGY METHOD 05/29/2025 11:01 AM [facility] RDW 12.2 11.0 - 15.0 % LAB HEMETOLOGY METHOD 05/29/2025 11:01 AM [facility] Platelets 331 130 - 400 K/mcL LAB HEMETOLOGY METHOD 05/29/2025 11:01 AM [facility] MPV 9.9 7.0 - 11.0 FL LAB HEMETOLOGY METHOD 05/29/2025 11:01 AM [facility] NRBC 0.0 <1.0 % LAB HEMETOLOGY METHOD 05/29/2025 11:01 AM [facility] NRBC Absolute 0.00 <0.10 K/mcL LAB HEMETOLOGY METHOD 05/29/2025 11:01 AM [facility] Blood Venous blood specimen / Unknown Venipuncture / Unknown 05/29/2025 7:07 AM EDT 05/29/2025 10:25 AM EDT us Smitha Mcbride MD LAB BLOOD ORDERABLES Fin al Result [facility] [address] [place] [address], [place] [phone] * (ABNORMAL) Basic metabolic panel (05/29/2025 7:07 AM EDT) Pathologist [facility] Sodium 138 133 - 145 mmol/L LAB CHEMISTRY METHOD 05/29/2025 1:52 PM T [facility] Potassium 3.8 3.5 - 5.5 mmol/L LAB CHEMISTRY METHOD 05/29/2025 1:52 PM [facility] Chloride 100 96 - 110 mmol/L LAB CHEMISTRY METHOD 05/29/2025 1:52 PM [facility] CO2 29 21 - 32 mmol/L LAB CHEMISTRY METHOD 05/29/2025 1:52 PM [facility] Anion Gap 9 3 - 11 LAB CHEMISTRY METHOD 05/29/2025 1:52 PM [facility] Glucose 111(H) 70 - 100 mg/dL LAB CHEMISTRY METHOD 05/29/2025 1:52 PM [facility] BUN 11 5 - 25 mg/dL LAB CHEMISTRY METHOD 05/29/2025 1:52 PM [facility] Creatinine 0.92 0.70 - 1.30 mg/dL LAB CHEMISTRY METHOD 05/29/2025 1:52 PM [facility] eGFR 86 >=60 mL/min/1. 73m2 LAB CHEMISTRY METHOD 05/29/2025 1:52 PM [facility] Comment:Calculation based on the Chronic Kidney Disease Epidemiology Collaboration (CKD-EPI) equation refit without adjustment for race. BUN/Creatinine Ratio 12.0 LAB CHEMISTRY METHOD 05/29/2025 1:52 PM [facility] Calcium 9.5 8.5 - 10.5 mg/dL LAB CHEMISTRY METHOD 05/29/2025 1:52 PM EDT [facility] Blood Venous blood specimen / Unknown Venipuncture / Unknown 05/29/2025 7:07 AM EDT 05/29/2025 10:24 AM EDT us Smitha Mcbride MD LAB BLOOD ORDERABLES Fin al Result [facility] [address] [place] [address], documented in this encounter Visit Diagnoses Diagnosis Rhabdomyolysis documented in this encounter Additional Health Concerns Assessment Noted Time PHQ-9 Depression Total Score: 0 01/17/20 8:47 AM EDT A fall risk assessment has been complete d for the patient 01/16/2025 8:47 AM EDT documented as of this encounter Care Teams Cement Truck Driver Relationship Specialty Start Date End Date Av Weathers PA [address] [place] [address] PCP - General Internal Medicine 12/12/20 documented as of this encounter
--- OUTSIDE RECORDS SUMMARY | 2025-08-03 09:36 | XMS_ITS | Encounter Summary ---
Author Organization [facility] Address [address] [place] [address] Care Team Providers Care Payroll And Benefits Specialist Name Role Phone Av Weathers Primary Care Provider +1 [phone] Encounter Details Date Type Department Care Team (Late st Contact Info) Description 03/05/2025 Lab Requisition [facility] - Main Lab 299 [facility] [place] [address] Smitha Mcbride MD [address] [id number] Rhabdomyolysis Social History Tobacco Use Types Packs/Day [...] your loved ones. For example, child care centre manager or elderly care for an older adult? [...] Associated Diagnosis Comments COMPLETE BLOOD COUNT Routine 03/06/2025 5:30 AM EDT Rhabdomyolysis BASIC METABOLIC PANEL Routine 03/06/2025 5:30 AM EDT Rhabdomyolysis documented in this encounter Results * (ABNORMAL) Complete blood count (03/06/2025 5:30 AM EDT) WBC 10.7 4.8 - 10.8 K/[facility] LAB HEMETOLOGY METHOD 03/06/2025 10:44 AM [facility] LAB RBC 3.80(L) 4.50 - 5.50 M/mcL LAB HEMETOLOGY METHOD 03/06/2025 10:44 AM [facility] Hemoglobin 12.4(L) 13.5 - 17.5 g/dL LAB HEMETOLOGY METHOD 03/06/2025 10:44 AM [facility] LAB Hematocrit 37.5(L) 42.0 - 54.0 % LAB HEMETOLOGY METHOD 03/06/2025 10:44 AM [facility] LAB MCV 100.0(H) 79.0 - 98.0 FL LAB HEMETOLOGY METHOD 03/06/2025 10:44 AM [facility] LAB MCH 33.1(H) 27.0 - 32.0 pcg LAB HEMETOLOGY METHOD 03/06/2025 10:44 AM [facility] LAB MCHC 33.1 32.0 - 37.0 g/dL LAB HEMETOLOGY METHOD 03/06/2025 10:44 AM [facility] LAB RDW 12.1 11.0 - 15.0 % LAB HEMETOLOGY METHOD 03/06/2025 10:44 AM [facility] LAB Platelets 298 130 - 400 K/mcL LAB HEMETOLOGY METHOD 03/06/2025 10:44 AM [facility] LAB MPV 10.0 7.0 - 11.0 FL LAB HEMETOLOGY METHOD 03/06/2025 10:44 AM [facility] NRBC 0.0 <1.0 % LAB HEMETOLOGY METHOD 03/06/2025 10:44 AM [facility] LAB NRBC Absolute 0.00 <0.10 K/mcL LAB HEMETOLOGY METHOD 03/06/2025 10:44 AM [facility] Blood Venous blood specimen / Unknown Venipuncture / Unknown 03/06/2025 5:30 AM EDT 03/06/2025 10:11 AM EDT us Smitha Mcbride MD LAB BLOOD ORDERABLES Fin al Result [facility] [address] [place] [address], * (ABNORMAL) Basic metabolic panel (03/06/2025 5:30 AM EDT) [facility] Sodium 139 133 - 145 mmol/L LAB CHEMISTRY METHOD 03/06/2025 11:27 AM [facility] Potassium 4.2 3.5 - 5.5 mmol/L LAB CHEMISTRY METHOD 03/06/2025 11:27 AM [facility] Chloride 105 96 - 110 mmol/L LAB CHEMISTRY METHOD 03/06/2025 11:27 AM [facility] CO2 26 21 - 32 mmol/L LAB CHEMISTRY METHOD 03/06/2025 11:27 AM [facility] Anion Gap 8 3 - 11 LAB CHEMISTRY METHOD 03/06/2025 11:27 AM [facility] Glucose 112(H) 70 - 100 mg/dL LAB CHEMISTRY METHOD 03/06/2025 11:27 AM [facility] BUN 24 5 - 25 mg/dL LAB CHEMISTRY METHOD 03/06/2025 11:27 AM [facility] Creatinine 0.89 0.70 - 1.30 mg/dL LAB CHEMISTRY METHOD 03/06/2025 11:27 AM [facility] LAB eGFR 88 >=60 mL/min/1. 73m2 LAB CHEMISTRY METHOD 03/06/2025 11:27 AM [facility] LAB Comment:Calculation based on the Chronic Kidney Disease Epidemiology Collaboration (CKD-EPI) equation refit without adjustment for race. BUN/Creatinine Ratio 27.0 LAB CHEMISTRY METHOD 03/06/2025 11:27 AM EDT [facility] Calcium 9.0 8.5 - 10.5 mg/dL LAB CHEMISTRY METHOD 03/06/2025 11:27 AM EDT [facility] Blood Venous blood specimen / Unknown Venipuncture / Unknown 03/06/2025 5:30 AM EDT 03/06/2025 10:28 AM EDT us Smitha Mcbride MD LAB BLOOD ORDERABLES Fin al Result [facility] [address] [place] [address], documented in this encounter Visit Diagnoses Diagnosis Rhabdomyolysis documented in this encounter Additional Health Concerns Assessment Noted Time PHQ-9 Depression Total Score: 0 01/17/20 25 8:47 AM EDT A fall risk assessment has been complete d for the patient 01/16/2025 8:47 AM EDT documented as of this encounter Care Teams Payroll And Benefits Specialist Relationship Specialty Start Date End Date Av Weathers PA [address] [place] [phone] PCP - General Internal Medicine 12/12/20 documented as of this encounter
--- OUTSIDE RECORDS SUMMARY | 2025-08-03 09:37 | XMS_ITS | Encounter Summary ---
Author Organization [facility] Address [address] [place] [address] Care Team Providers Care Coke Drawer Name Role Phone Av Weathers Primary Care Provider +1 [phone] Encounter Details Date Type Department Care Team (Late st Contact Info) Description 03/09/2025 Lab Requisition [facility] - Main Lab [address] [facility] [place] [address] Smitha Mcbride MD [address] [phone] Rhabdomyolysis Social History Tobacco Use Types Packs/Day [...] for your loved ones. For example, child abuse worker or elderly care for an older adult? [...] Diagnosis Comments CBC WITH AUTO DIFFERENTIAL Routine 03/09/2025 5:13 AM EDT Rhabdomyolysis CBC AND DIFFERENTIAL Routine 03/09/2025 5:13 AM EDT Rhabdomyolysis BASIC METABOLIC PANEL Routine 03/09/2025 5:13 AM EDT Rhabdomyolysis documented in this encounter Results * (ABNORMAL) CBC auto differential (03/09/2025 5:13 AM EDT) Pathologist [facility] WBC 12.3(H) 4.8 - 10.8 K/mcL LAB HEMETOLOGY METHOD 03/09/2025 8:02 AM [facility] LAB RBC 3.90(L) 4.50 - 5.50 M/mcL LAB HEMETOLOGY METHOD 03/09/2025 8:02 AM [facility] LAB Hemoglobin 12.6(L) 13.5 - 17.5 g/dL LAB HEMETOLOGY METHOD 03/09/2025 8:02 AM [facility] LAB Hematocrit 37.8(L) 42.0 - 54.0 % LAB HEMETOLOGY METHOD 03/09/2025 8:02 AM [facility] LAB MCV 97.7 79.0 - 98.0 FL LAB HEMETOLOGY METHOD 03/09/2025 8:02 AM [facility] LAB MCH 32.6(H) 27.0 - 32.0 pcg LAB HEMETOLOGY METHOD 03/09/2025 8:02 AM [facility] LAB MCHC 33.3 32.0 - 37.0 g/dL LAB HEMETOLOGY METHOD 03/09/2025 8:02 AM [facility] LAB RDW 11.9 11.0 - 15.0 % LAB HEMETOLOGY METHOD 03/09/2025 8:02 AM [facility] LAB Platelets 301 130 - 400 K/mcL LAB HEMETOLOGY METHOD 03/09/2025 8:02 AM [facility] LAB MPV 10.2 7.0 - 11.0 FL LAB HEMETOLOGY METHOD 03/09/2025 8:02 AM [facility] LAB NRBC 0.0 <1.0 % LAB HEMETOLOGY METHOD 03/09/2025 8:02 AM [facility] LAB NRBC Absolute 0.00 <0.10 K/mcL LAB HEMETOLOGY METHOD 03/09/2025 8:02 AM [facility] Neutrophils Relative 73.5 % LAB HEMETOLOGY METHOD 03/09/2025 8:02 AM [facility] Lymphocytes Relative 17.0 % LAB HEMETOLOGY METHOD 03/09/2025 8:02 AM [facility] Monocytes Relative 6.8 % LAB HEMETOLOGY METHOD 03/09/2025 8:02 AM [facility] Eosinophils Relative 2.1 % LAB HEMETOLOGY METHOD 03/09/2025 8:02 AM [facility] Basophils Relative 0.3 % LAB HEMETOLOGY METHOD 03/09/2025 8:02 AM [facility] Immature Granulocytes Relative 0.3 % LAB HEMETOLOGY METHOD 03/09/2025 8:02 AM [facility] Neutrophils Absolute 9.01(H) 1.50 - 7.00 K/mcL LAB HEMETOLOGY METHOD 03/09/2025 8:02 AM [facility] Lymphocytes Absolute 2.09 1.00 - 5.00 K/mcL LAB HEMETOLOGY METHOD 03/09/2025 8:02 AM [facility] Monocytes Absolute 0.83 0.20 - 1.00 K/mcL LAB HEMETOLOGY METHOD 03/09/2025 8:02 AM [facility] Eosinophils Absolute 0.26 0.00 - 0.50 K/mcL LAB HEMETOLOGY METHOD 03/09/2025 8:02 AM [facility] Basophils Absolute 0.04 0.00 - 0.20 K/mcL LAB HEMETOLOGY METHOD 03/09/2025 8:02 AM [facility] Immature Granulocytes Absolute 0.04(H) 0.00 - 0.03 K/mcL LAB HEMETOLOGY METHOD 03/09/2025 8:02 AM [facility] Blood Venous blood specimen / Unknown Venipuncture / Unknown 03/09/2025 5:13 AM EDT 03/09/2025 7:25 AM EDT Smitha Mcbride MD LAB BLOOD ORDERABLES Fin al Result [facility] [address] [place] [address], * (ABNORMAL) Basic metabolic panel (03/09/2025 5:13 AM EDT) Sodium 138 133 - 145 mmol/L LAB CHEMISTRY METHOD 03/09/2025 8:52 AM [facility] Potassium 3.6 3.5 - 5.5 mmol/L LAB CHEMISTRY METHOD 03/09/2025 8:52 AM [facility] Chloride 103 96 - 110 mmol/L LAB CHEMISTRY METHOD 03/09/2025 8:52 AM [facility] CO2 30 21 - 32 mmol/L LAB CHEMISTRY METHOD 03/09/2025 8:52 AM [facility] Anion Gap 5 3 - 11 LAB CHEMISTRY METHOD 03/09/2025 8:52 AM [facility] Glucose 129(H) 70 - 100 mg/dL LAB CHEMISTRY METHOD 03/09/2025 8:52 AM [facility] BUN 14 5 - 25 mg/dL LAB CHEMISTRY METHOD 03/09/2025 8:52 AM [facility] Creatinine 0.66(L) 0.70 - 1.30 mg/dL LAB CHEMISTRY METHOD 03/09/2025 8:52 AM [facility] LAB eGFR 97 >=60 mL/min/1. 73m2 LAB CHEMISTRY METHOD 03/09/2025 8:52 AM [facility] Comment:Calculation based on the Chronic Kidney Disease Epidemiology Collaboration (CKD-EPI) equation refit without adjustment for race. BUN/Creatinine Ratio 21.2 LAB CHEMISTRY METHOD 03/09/2025 8:52 AM EDT [facility] Calcium 9.3 8.5 - 10.5 mg/dL LAB CHEMISTRY METHOD 03/09/2025 8:52 AM EDT [facility] Blood Venous blood specimen / Unknown Venipuncture / Unknown 03/09/2025 5:13 AM EDT 03/09/2025 7:25 AM EDT us Smitha Mcbride MD LAB BLOOD ORDERABLES Fin al Result [facility] [address] [place] [address], documented in this encounter Visit Diagnoses Diagnosis Rhabdomyolysis documented in this encounter Additional Health Concerns Assessment Noted Time PHQ-9 Depression Total Score: 0 01/17/20 25 8:47 AM EDT A fall risk assessment has been complete d for the patient 01/16/2025 8:47 AM EDT documented as of this encounter Care Teams Coke Drawer Relationship Specialty Start Date End Date Av Weathers PA [address] [place] [id number] PCP - General Internal Medicine 12/12/20 documented as of this encounter
--- OUTSIDE RECORDS SUMMARY | 2025-08-03 09:37 | XMS_ITS | Encounter Summary ---
Author Organization [facility] Address [address] [place] [address] Care Team Providers Care Java Websphere Developer Name Role Phone Av Weathers Primary Care Provider +1 [phone] Encounter Details Date Type Department Care Team (Late st Contact Info) Description 02/24/2025 Lab Requisition [facility] - Main Lab 299 [facility] [place] [address] Physician, Pcp Unknown Dysuria Social History Tobacco Use Types Packs/Day Years [...] Diagnosis Comments URINALYSIS WITH REFLEX MICROSCOPIC Routine 02/24/2025 12:00 AM EDT Dysuria URINALYSIS WITH REFLEX MICROSCOPIC Routine 02/24/2025 12:00 AM EDT Dysuria CULTURE URINE Routine 02/24/2025 12:00 AM EDT Dysuria documented in this encounter Results * (ABNORMAL) Urinalysis with reflex microscopic (02/24/2025 12:00 AM EDT) Specific [place] Urine 1.013 1.003 - 1.030 LAB URINALYSIS - AUTOMATED METHOD 02/24/2025 8:25 PM [facility] pH, Urine 5.5 5.0 - 8.0 pH LAB URINALYSIS - AUTOMATED METHOD 02/24/2025 8:25 PM [facility] Leukocytes, Urine Trace(A) Negative LAB URINALYSIS - AUTOMATED METHOD 02/24/2025 8:25 PM [facility] Nitrite, Urine Negative Negative LAB URINALYSIS - AUTOMATED METHOD 02/24/2025 8:25 PM [facility] Protein, Urine Negative <=Trace mg/dL LAB URINALYSIS - AUTOMATED METHOD 02/24/2025 8:25 PM [facility] Glucose, Urine Negative Negative mg/dL LAB URINALYSIS - AUTOMATED METHOD 02/24/2025 8:25 PM [facility] Ketones, Urine Negative Negative mg/dL LAB URINALYSIS - AUTOMATED METHOD 02/24/2025 8:25 PM [facility] Urobilinogen , Urine 0.2 0.2 - 1.0 mg/dL LAB URINALYSIS - AUTOMATED METHOD 02/24/2025 8:25 PM [facility] Bilirubin, Urine Negative Negative LAB URINALYSIS - AUTOMATED METHOD 02/24/2025 8:25 PM [facility] Blood, Urine Moderate(A) Negative LAB URINALYSIS - AUTOMATED METHOD 02/24/2025 8:25 PM [facility] RBC, Urine 8.3(H) 0 - 4 /HPF LAB URINALYSIS - AUTOMATED METHOD 02/24/2025 8:25 PM [facility] WBC, Urine 5.1(H) 0 - 4 /HPF LAB URINALYSIS - AUTOMATED METHOD 02/24/2025 8:25 PM [facility] Squamous Epithelial, Urine 19 0 - 60 /LPF LAB URINALYSIS - AUTOMATED METHOD 02/24/2025 8:25 PM [facility] Bacteria, Urine Negative Negative /HPF LAB URINALYSIS - AUTOMATED METHOD 02/24/2025 8:25 PM EDT [facility] Hyaline Casts, Urine 0.4 0 - 3 /LPF LAB URINALYSIS - AUTOMATED METHOD 02/24/2025 8:25 PM EDT [facility] Urine Urine specimen obtained by clean catch procedure / Unknown 02/24/2025 02/24/2025 7:41 PM EDT us Pcp Unknown Physician LAB URINE ORDERABLES Final Result [facility] [address] [place] [address], [place] [phone] * (ABNORMAL) Culture urine (02/24/2025 12:00 AM EDT) Culture, Urine >100,000 CFU/mL Enterococcus faecalis(A) AZEB 02/26/2025 10:48 AM EDT [facility] Comment: Edited result: Previously reported as Enterococcus species on 02/25/2025 at 1323 EDT. Urine Urine specimen obtained by clean catch procedure / Unknown 02/24/2025 02/24/2025 7:41 PM EDT Narrative Organism Antibiotic Method Susceptibility Enterococcus faecalis Benzylpenicillin AZEB 4 ug/ml: Susceptible Enterococcus faecalis Ampicillin AZEB <=2 ug/ml: Susceptible Enterococcus faecalis Ciprofloxacin AZEB <=0.5 ug/ml: Susceptible Enterococcus faecalis Levofloxacin AZEB 1 ug/ml: Susceptible Enterococcus faecalis Linezolid AZEB 2 ug/ml: Susceptible Enterococcus faecalis Vancomycin AZEB 1 ug/ml: Susceptible Enterococcus faecalis Tetracycline AZEB >=16 ug/ml: Resistant Enterococcus faecalis Nitrofurantoin AZEB <=16 ug/ml: Susceptible us Pcp Unknown Physician LAB MICROBIOLOGY - GENERAL ORDERABLES Final Result [facility] [address] [place] [address], [place] [phone] documented in this encounter Visit Diagnoses Diagnosis Dysuria documented in this encounter Additional Health Concerns Assessment Noted Time PHQ-9 Depression Total Score: 0 01/17/20 25 8:47 AM EDT A fall risk assessment has been complete d for the patient 01/16/2025 8:47 AM EDT documented as of this encounter Care Teams Java Websphere Developer Relationship Specialty Start Date End Date Av Weathers PA [address] [place] [address] PCP - General Internal Medicine 12/12/20 documented as of this encounter
--- OUTSIDE RECORDS SUMMARY | 2025-08-03 09:37 | XMS_ITS | Encounter Summary ---
Author Organization [facility] Address [address] [place] [address] Care Team Providers Care Brand Specialist Name Role Phone Av Weathers Primary Care Provider [phone] [phone] Encounter Details Date Type Department Care Team (Late st Contact Info) Description 05/07/2025 Lab Requisition [facility] - Main Lab 299 [facility] [place] [address] Smitha Mcbride MD [address] [phone] Rhabdomyolysis Social History Tobacco Use Types Packs/Day [...] Associated Diagnosis Comments COMPLETE BLOOD COUNT Routine 05/08/2025 5:13 AM EDT Rhabdomyolysis BASIC METABOLIC PANEL Routine 05/08/2025 5:13 AM EDT Rhabdomyolysis documented in this encounter Results * (ABNORMAL) Complete blood count (05/08/2025 5:13 AM EDT) WBC 8.9 4.8 - 10.8 K/[facility] LAB HEMETOLOGY METHOD 05/08/2025 1:37 PM [facility] RBC 3.90(L) 4.50 - 5.50 M/mcL LAB HEMETOLOGY METHOD 05/08/2025 1:37 PM [facility] Hemoglobin 12.2(L) 13.5 - 17.5 g/dL LAB HEMETOLOGY METHOD 05/08/2025 1:37 PM [facility] Hematocrit 37.5(L) 42.0 - 54.0 % LAB HEMETOLOGY METHOD 05/08/2025 1:37 PM [facility] MCV 95.9 79.0 - 98.0 FL LAB HEMETOLOGY METHOD 05/08/2025 1:37 PM [facility] MCH 31.2 27.0 - 32.0 pcg LAB HEMETOLOGY METHOD 05/08/2025 1:37 PM [facility] MCHC 32.5 32.0 - 37.0 g/dL LAB HEMETOLOGY METHOD 05/08/2025 1:37 PM [facility] RDW 12.5 11.0 - 15.0 % LAB HEMETOLOGY METHOD 05/08/2025 1:37 PM [facility] Platelets 303 130 - 400 K/mcL LAB HEMETOLOGY METHOD 05/08/2025 1:37 PM [facility] MPV 9.9 7.0 - 11.0 FL LAB HEMETOLOGY METHOD 05/08/2025 1:37 PM [facility] NRBC 0.0 <1.0 % LAB HEMETOLOGY METHOD 05/08/2025 1:37 PM [facility] NRBC Absolute 0.00 <0.10 K/mcL LAB HEMETOLOGY METHOD 05/08/2025 1:37 PM [facility] Blood Venous blood specimen / Unknown Venipuncture / Unknown 05/08/2025 5:13 AM EDT 05/08/2025 10:54 AM EDT us Smitha Mcbride MD LAB BLOOD ORDERABLES Fin al Result [facility] [address] [place] [address], [place] [phone] * Basic metabolic panel (05/08/2025 5:13 AM EDT) Sodium 140 133 - 145 mmol/L LAB CHEMISTRY METHOD 05/08/2025 12:20 PM [facility] Potassium 3.7 3.5 - 5.5 mmol/L LAB CHEMISTRY METHOD 05/08/2025 12:20 PM [facility] Chloride 103 96 - 110 mmol/L LAB CHEMISTRY METHOD 05/08/2025 12:20 PM [facility] CO2 31 21 - 32 mmol/L LAB CHEMISTRY METHOD 05/08/2025 12:20 PM [facility] Anion Gap 6 3 - 11 LAB CHEMISTRY METHOD 05/08/2025 12:20 PM [facility] Glucose 93 70 - 100 mg/dL LAB CHEMISTRY METHOD 05/08/2025 12:20 PM [facility] BUN 14 5 - 25 mg/dL LAB CHEMISTRY METHOD 05/08/2025 12:20 PM [facility] Creatinine 0.89 0.70 - 1.30 mg/dL LAB CHEMISTRY METHOD 05/08/2025 12:20 PM [facility] eGFR 88 >=60 mL/min/1. 73m2 LAB CHEMISTRY METHOD 05/08/2025 12:20 PM [facility] Comment:Calculation based on the Chronic Kidney Disease Epidemiology Collaboration (CKD-EPI) equation refit without adjustment for race. BUN/Creatinine Ratio 15.7 LAB CHEMISTRY METHOD 05/08/2025 12:20 PM [facility] Calcium 8.7 8.5 - 10.5 mg/dL LAB CHEMISTRY METHOD 05/08/2025 12:20 PM EDT [facility] Blood Venous blood specimen / Unknown Venipuncture / Unknown 05/08/2025 5:13 AM EDT 05/08/2025 10:54 AM EDT us Smitha Mcbride MD LAB BLOOD ORDERABLES Fin al Result [facility] [address] [place] [address], documented in this encounter Visit Diagnoses Diagnosis Rhabdomyolysis documented in this encounter Additional Health Concerns Assessment Noted Time PHQ-9 Depression Total Score: 0 01/17/20 25 8:47 AM EDT A fall risk assessment has been complete d for the patient 01/16/2025 8:47 AM EDT documented as of this encounter Care Teams Brand Specialist Relationship Specialty Start Date End Date Av Weathers PA [address] [place] [address] PCP - General Internal Medicine 12/12/20 documented as of this encounter
--- OUTSIDE RECORDS SUMMARY | 2025-08-03 09:37 | XMS_ITS | Encounter Summary ---
Author Organization [facility] Address [address] [place] [address] Care Team Providers Care Kaiako Kohanga Reo Name Role Phone Av Weathers Primary Care Provider [phone] [phone] Encounter Details Date Type Department Care Team (Late st Contact Info) Description 03/02/2025 Lab Requisition [facility] - Main Lab 299 [facility] [place] [address] Smitha Mcbride MD [address] [phone] Rhabdomyolysis Social History Tobacco Use Types Packs/Day [...] care for your loved ones. For example, childcare worker or elderly care for an older [...] Associated Diagnosis Comments COMPLETE BLOOD COUNT Routine 03/02/2025 5:17 AM EDT Rhabdomyolysis BASIC METABOLIC PANEL Routine 03/02/2025 5:17 AM EDT Rhabdomyolysis documented in this encounter Results * (ABNORMAL) Basic metabolic panel (03/02/2025 5:17 AM EDT) Sodium 139 133 - 145 mmol/L LAB CHEMISTRY METHOD 03/02/2025 11:14 AM [facility] Potassium 4.0 3.5 - 5.5 mmol/L LAB CHEMISTRY METHOD 03/02/2025 11:14 AM [facility] Chloride 105 96 - 110 mmol/L LAB CHEMISTRY METHOD 03/02/2025 11:14 AM [facility] CO2 28 21 - 32 mmol/L LAB CHEMISTRY METHOD 03/02/2025 11:14 AM [facility] Anion Gap 6 3 - 11 LAB CHEMISTRY METHOD 03/02/2025 11:14 AM [facility] Glucose 121(H) 70 - 100 mg/dL LAB CHEMISTRY METHOD 03/02/2025 11:14 AM [facility] BUN 20 5 - 25 mg/dL LAB CHEMISTRY METHOD 03/02/2025 11:14 AM [facility] Creatinine 0.71 0.70 - 1.30 mg/dL LAB CHEMISTRY METHOD 03/02/2025 11:14 AM [facility] eGFR 94 >=60 mL/min/1. 73m2 LAB CHEMISTRY METHOD 03/02/2025 11:14 AM [facility] Comment:Calculation based on the Chronic Kidney Disease Epidemiology Collaboration (CKD-EPI) equation refit without adjustment for race. BUN/Creatinine Ratio 28.2 LAB CHEMISTRY METHOD 03/02/2025 11:14 AM [facility] Calcium 9.3 8.5 - 10.5 mg/dL LAB CHEMISTRY METHOD 03/02/2025 11:14 AM [facility] Blood Venous blood specimen / Unknown Venipuncture / Unknown 03/02/2025 5:17 AM EDT 03/02/2025 9:58 AM EDT us Smitha Mcbride MD LAB BLOOD ORDERABLES Fin al Result [facility] [address] [place], [place] [address] [phone] * (ABNORMAL) Complete blood count (03/02/2025 5:17 AM EDT) [facility] WBC 9.6 4.8 - 10.8 K/mcL LAB HEMETOLOGY METHOD 03/02/2025 10:27 AM [facility] RBC 4.10(L) 4.50 - 5.50 M/mcL LAB HEMETOLOGY METHOD 03/02/2025 10:27 AM [facility] Hemoglobin 13.2(L) 13.5 - 17.5 g/dL LAB HEMETOLOGY METHOD 03/02/2025 10:27 AM [facility] Hematocrit 40.2(L) 42.0 - 54.0 % LAB HEMETOLOGY METHOD 03/02/2025 10:27 AM [facility] MCV 99.0(H) 79.0 - 98.0 FL LAB HEMETOLOGY METHOD 03/02/2025 10:27 AM [facility] MCH 32.5(H) 27.0 - 32.0 pcg LAB HEMETOLOGY METHOD 03/02/2025 10:27 AM [facility] MCHC 32.8 32.0 - 37.0 g/dL LAB HEMETOLOGY METHOD 03/02/2025 10:27 AM [facility] RDW 11.9 11.0 - 15.0 % LAB HEMETOLOGY METHOD 03/02/2025 10:27 AM [facility] Platelets 306 130 - 400 K/mcL LAB HEMETOLOGY METHOD 03/02/2025 10:27 AM [facility] MPV 10.0 7.0 - 11.0 FL LAB HEMETOLOGY METHOD 03/02/2025 10:27 AM [facility] NRBC 0.0 <1.0 % LAB HEMETOLOGY METHOD 03/02/2025 10:27 AM EDT [facility] NRBC Absolute 0.00 <0.10 K/mcL LAB HEMETOLOGY METHOD 03/02/2025 10:27 AM EDT [facility] Blood Venous blood specimen / Unknown Venipuncture / Unknown 03/02/2025 5:17 AM EDT 03/02/2025 9:58 AM EDT us Smitha Mcbride MD LAB BLOOD ORDERABLES Fin al Result [facility] [address] [place] [address], documented in this encounter Visit Diagnoses Diagnosis Rhabdomyolysis documented in this encounter Additional Health Concerns Assessment Noted Time PHQ-9 Depression Total Score: 0 01/17/20 25 8:47 AM EDT A fall risk assessment has been complete d for the patient 01/16/2025 8:47 AM EDT documented as of this encounter Care Teams Kaiako Kohanga Reo Relationship Specialty Start Date End Date Av Weathers PA [address] [place] [id number] PCP - General Internal Medicine 12/12/20 documented as of this encounter
--- OUTSIDE RECORDS SUMMARY | 2025-08-03 09:37 | XMS_ITS | Encounter Summary ---
Author Organization [facility] Address [address] [place] [address] Care Team Providers Care Diesel Engineer Name Role Phone Av Weathers Primary Care Provider +1 [phone] Encounter Details Date Type Department Care Team (Late st Contact Info) Description 03/24/2025 Lab Requisition [facility] - Main Lab [address] [facility] [place] [phone] Smitha Mcbride MD [address] [phone] Rhabdomyolysis; Anemia, unspecified; Other disorders of electrolyte and fluid balance, not elsewhere classified; Allergy, unspecified, initial encounter Social History Tobacco Use Types Packs/Day Years [...] care for your loved ones. For example, childbirth and infant care teacher or elderly care for an older [...] Procedure Name Priority Date/Time Associated Diagnosis Comments ALLERGEN RESPIRATORY PROFILE AREA 1 CT,MA,[place],V T IGE Routine 03/27/2025 6:15 AM EDT Rhabdomyolysis Anemia, unspecified Other disorders of electrolyte and fluid balance, not elsewhere classified Allergy, unspecified, initial encounter ALLERGEN, NATIONAL FOOD PROFILE IGE Routine 03/27/2025 6:15 AM EDT Rhabdomyolysis Anemia, unspecified Other disorders of electrolyte and fluid balance, not elsewhere classified Allergy, unspecified, initial encounter CBC WITH AUTO DIFFERENTIAL Routine 03/27/2025 6:15 AM EDT Rhabdomyolysis Anemia, unspecified Other disorders of electrolyte and fluid balance, not elsewhere classified Allergy, unspecified, initial encounter ALLERGEN LATEX, IGE Routine 03/27/2025 6 :15 AM EDT Rhabdomyolysis Anemia, unspecified Other disorders of electrolyte and fluid balance, not elsewhere classified Allergy, unspecified, initial encounter SEDIMENTATION RATE Routine 03/27/2025 6: 15 AM EDT Rhabdomyolysis Anemia, unspecified Other disorders of electrolyte and fluid balance, not elsewhere classified Allergy, unspecified, initial encounter CBC AND DIFFERENTIAL Routine 03/27/2025 6:15 AM EDT Rhabdomyolysis Anemia, unspecified Other disorders of electrolyte and fluid balance, not elsewhere classified Allergy, unspecified, initial encounter C3 COMPLEMENT Routine 03/27/2025 6:15 AM EDT Rhabdomyolysis Anemia, unspecified Other disorders of electrolyte and fluid balance, not elsewhere classified Allergy, unspecified, initial encounter C4 COMPLEMENT Routine 03/27/2025 6:15 AM EDT Rhabdomyolysis Anemia, unspecified Other disorders of electrolyte and fluid balance, not elsewhere classified Allergy, unspecified, initial encounter BASIC METABOLIC PANEL Routine 03/27/2025 6:15 AM EDT Rhabdomyolysis Anemia, unspecified Other disorders of electrolyte and fluid balance, not elsewhere classified Allergy, unspecified, initial encounter documented in this encounter Results * (ABNORMAL) Allergen respiratory profile area 1 CT,MA,ME,[place],RI,VT IgE (03/27/2025 6:15 AM EDT) Pathologist [facility] Alternaria alternata, IgE <0.10 <0.10 kU/L 03/29/2025 2:16 PM EDT [facility] Alternaria alternata Class CLASS 0 03/29/2025 2:16 PM EDT [facility] Aspergillus fumigatus, IgE <0.10 <0.10 kU/L 03/29/2025 2:16 PM EDT [facility] Aspergillus fumigatus Class CLASS 0 03/29/2025 2:16 PM EDT [facility] B[place] Grass, IgE <0.10 <0.10 kU/L 03/29/2025 2:16 PM EDT [facility] [place] Grass Class CLASS 0 03/29 2:16 PM EDT [facility] Common Silver Birch, IgE <0.10 <0.10 kU/L 03/29/2025 2:16 PM EDT [facility] Common Silver Birch Class CLASS 0 03/29/2025 2:16 PM EDT [facility] Cat Dander, IgE <0.10 <0.10 kU/L 03/29/2025 2:16 PM EDT [facility] Cat Dander Class CLASS 0 03/29/20 2:16 PM EDT [facility] Cladosporium herbarum, IgE <0.10 <0.10 kU/L 03/29/2025 2:16 PM EDT [facility] Cladosporium herbarum Class CLASS 0 03/29/2025 2:16 PM EDT [facility] Cockroach, Nigerien, IgE 0.10 <0.10 kU/L 03/29/2025 2:16 PM EDT [facility] Cockroach, Nigerien Class CLASS 0/1 03/29/2025 2:16 PM EDT [facility] Comal, IgE 0.16(H) <0.10 kU/L 03/29/2025 2:16 PM EDT [facility] Comal Class CLASS 0/1 03/29/20 2:16 PM EDT [facility] Dermatophagoides farinae, IgE <0.10 <0.10 kU/L 03/29/2025 2:16 PM EDT [facility] Dermatophagoides farinae Class CLASS 0 03/29/2025 2:16 PM EDT [facility] Dermatophagoides pteronyssinus, IgE <0.10 <0.10 kU/L 03/29/2025 2:16 PM EDT [facility] Dermatophagoides pteronyssinus Class CLASS 0 03/29/2025 2:16 PM EDT [facility] Dog Dander, IgE <0.10 <0.10 kU/L 03/29/2025 2:16 PM EDT [facility] Dog Dander Class CLASS 0 03/29/20 2:16 PM EDT [facility] Elm, IgE <0.10 <0.10 kU/L 03/29/2025 2:16 PM EDT [facility] Elm Class CLASS 0 03/29/2025 2:16 PM EDT [facility] Maple (Campbell), IgE <0.10 <0.10 kU/L 03/29/2025 2:16 PM EDT [facility] Maple (Campbell) Class CLASS 0 03/29/2025 2:16 PM EDT [facility] Maple Point Isabel Syc., Gupta Plane, IgE <0.10 <0.10 kU/L 03/29/2025 2:16 PM EDT [facility] Maple Point Isabel Syc, Gupta Plane Class CLASS 0 03/29/2025 2:16 PM EDT [facility] Mountain Juniper, IgE <0.10 <0.10 kU/L 03/29/2025 2:16 PM EDT [facility] Mountain Juniper Class CLASS 0 03/29/2025 2:16 PM EDT [facility] Mouse Urine Proteins, IgE <0.10 0.10 kU/L 03/29/2025 2:16 PM EDT [facility] Mouse Urine Proteins Class CLASS 0 03/29/2025 2:16 PM EDT [facility] Mugwort (sagebrush), IgE <0.10 <0.10 kU/L 03/29/2025 2:16 PM EDT [facility] Mugwort (sagebrush) Class CLASS 0 03/29/2025 2:16 PM EDT [facility] Simpson, IgE <0.10 <0.10 kU/L 03/29/2025 2:16 PM EDT [facility] Simpson Class CLASS 0 03/29/2025 2:16 PM EDT [facility] [place], IgE <0.10 <0.10 kU/L 03/29/2025 2:16 PM EDT [facility] [place] Class CLASS 0 03/29/2025 2:16 PM EDT [facility] Penicillium chrysogenum, IgE <0.10 <0.10 kU/L 03/29/2025 2:16 PM EDT [facility] Penicillium chrysogenum Class CLASS 0 03/29/2025 2:16 PM EDT [facility] Common Pigweed, IgE <0.10 <0.10 kU/L 03/29/2025 2:16 PM EDT [facility] Common Pigweed Class CLASS 0 /02/2025 2:16 PM EDT [facility] Common Ragweed (short), IgE 0.12(H) <0.10 kU/L 03/29/2025 2:16 PM EDT [facility] Common Ragweed (short) Class CLASS 0/1 03/29/2025 2:16 PM EDT [facility] Sheep [place], IgE <0.10 <0.10 kU/L 03/29/2025 2:16 PM EDT [facility] Sheep [place] Class CLASS 0 2024 2:16 PM EDT [facility] Boston Grass, IgE <0.10 <0.10 kU/L 03/29/2025 2:16 PM EDT [facility] Boston Grass Class CLASS 0 03/29 2:16 PM EDT [facility] [place] Tree, IgE <0.10 <0.10 kU/L 03/29/2025 2:16 PM EDT [facility] [place] Tree Class CLASS 0 025 2:16 PM EDT [facility] White Bakari, IgE <0.10 <0.10 kU/L 03/29/2025 2:16 PM EDT [facility] White Bakari Class CLASS 0 2:16 PM EDT [facility] IgE 437.0(H) <114.0 IU/mL 03/29/2025 2:16 PM EDT [facility] Allergy Interpretation See Below 03/29/2025 2:16 PM EDT [facility] Comment: Level of Allergen CLASS kU/L Specific IgE Antibody ----- 0 <0.10 Undetectable 0/1 0.10 - 0.34 Very Low Level 1 0.35 - 0.69 Low Level 2 0.70 - 3.49 Moderate Level 3 3.50 - 17.4 High Level 4 17.5 - 49.9 Very High Level 5 50.0 - 100.0 Very High Level 6 >100.0 Very High Level Test performed at [facility], [address], [place] [address] Juanita Moseley MD, PhD - Outsewer Blood Venous blood specimen / Unknown Venipuncture / Unknown 03/27/2025 6:15 AM EDT 03/27/2025 10:58 AM EDT us Smitha Mcbride MD LAB BLOOD ORDERABLES Fin al Result [facility] [address] [place] [address] * (ABNORMAL) Allergen, national food profile IGE (03/27/2025 6:15 AM EDT) [place], IgE <0.10 <0.10 kU/L 03/29/2025 2:16 PM EDT [facility] [place] Class CLASS 0 03/29/2025 2:16 PM EDT [facility] Cashew Nut, IgE <0.10 <0.10 kU/L 03/29/2025 2:16 PM EDT [facility] Cashew Nut Class CLASS 0 03/29/20 2:16 PM EDT [facility] Cod, IgE <0.10 <0.10 kU/L 03/29/2025 2:16 PM EDT [facility] Cod Class CLASS 0 03/29/2025 2:16 PM EDT [facility] Cow's Milk, IgE <0.10 <0.10 kU/L 03/29/2025 2:16 PM EDT [facility] Cow's Milk Class CLASS 0 03/29/20 2:16 PM EDT [facility] Egg White, IgE <0.10 <0.10 kU/L 03/29/2025 2:16 PM EDT [facility] Egg White Class CLASS 0 2:16 PM EDT [facility] Jennifer Nut, IgE <0.10 <0.10 kU/L 03/29/2025 2:16 PM EDT [facility] Jennifer Nut Class CLASS 0 2:16 PM EDT [facility] Peanut, IgE <0.10 <0.10 kU/L 03/29/2025 2:16 PM EDT [facility] Peanut Class CLASS 0 03/29/2025 2:16 PM EDT [facility] [place], IgE <0.10 <0.10 kU/L 03/29/2025 2:16 PM EDT [facility] [place] Class CLASS 0 03/29/2025 2:16 PM EDT [facility] Scallop, IgE <0.10 <0.10 kU/L 03/29/2025 2:16 PM EDT [facility] Scallop Class CLASS 0 03/29/2025 2:16 PM EDT [facility] Sesame Seed, IgE <0.10 <0.10 kU/L 03/29/2025 2:16 PM EDT [facility] Sesame Seed Class CLASS 0 2:16 PM EDT [facility] Shrimp, IgE <0.10 <0.10 kU/L 03/29/2025 2:16 PM EDT [facility] Shrimp Class CLASS 0 03/29/2025 2:16 PM EDT [facility] Soybean, IgE <0.10 <0.10 kU/L 03/29/2025 2:16 PM EDT [facility] Soybean Class CLASS 0 03/29/2025 2:16 PM EDT [facility] Tuna, IgE <0.10 <0.10 kU/L 03/29/2025 2:16 PM EDT [facility] Tuna Class CLASS 0 03/29/2025 2:16 PM EDT [facility] [place], IgE <0.10 <0.10 kU/L 03/29/2025 2:16 PM EDT [facility] [place] Class CLASS 0 03/29/2025 2:16 PM EDT [facility] Wheat, IgE 0.11(H) <0.10 kU/L 03/29/2025 2:16 PM EDT [facility] Wheat Class CLASS 0/1 03/29/2025 2:16 PM EDT [facility] IgE 517.0(H) <114.0 IU/mL 03/29/2025 2:16 PM EDT [facility] Allergy Interpretation See Below 03/29/2025 2:16 PM EDT [facility] Comment: Level of Allergen CLASS kU/L Specific IgE Antibody ----- 0 <0.10 Undetectable 0/1 0.10 - 0.34 Very Low Level 1 0.35 - 0.69 Low Level 2 0.70 - 3.49 Moderate Level 3 3.50 - 17.4 High Level 4 17.5 - 49.9 Very High Level 5 50.0 - 100.0 Very High Level 6 >100.0 Very High Level Test performed at [facility], [address] [place] [address] Juanita Moseley MD, PhD - Outsewer Blood Venous blood specimen / Unknown Venipuncture / Unknown 03/27/2025 6:15 AM EDT 03/27/2025 10:58 AM EDT Smitha Mcbride MD LAB BLOOD ORDERABLES Fin al Result Performing Organization Address City/[facility] Co de Phone Number [facility] [address] [place] [address] * Allergen latex, IgE (03/27/2025 6:15 AM EDT) Latex, IgE <0.10 <0.10 kU/L 03/29/2025 2:16 PM EDT [facility] Latex Class CLASS 0 03/29/2025 2:16 PM EDT [facility] Comment: Test performed at [facility], [address] [place] [address] Juanita Moseley MD, PhD - Outsewer Blood Venous blood specimen / Unknown Venipuncture / Unknown 03/27/2025 6:15 AM EDT 03/27/2025 10:58 AM EDT Smitha Mcbride MD LAB BLOOD ORDERABLES Fin al Result [facility] [address] [place] [address] * C4 complement (03/27/2025 6:15 AM EDT) [facility] C4 Complement 30 16 - 47 mg/dL LAB CHEMISTRY METHOD 03/27/2025 1:39 PM EDT [facility] Blood Venous blood specimen / Unknown Venipuncture / Unknown 03/27/2025 6:15 AM EDT 03/27/2025 10:58 AM EDT Smitha Mcbride MD LAB BLOOD ORDERABLES Fin al Result Performing Organization Address [facility] Co de Phone Number [facility] [address] [place] [address], [place] [phone] * C3 complement (03/27/2025 6:15 AM EDT) [facility] C3 Complement 133 88 - 201 mg/dL LAB CHEMISTRY METHOD 03/27/2025 1:39 PM EDT [facility] Blood Venous blood specimen / Unknown Venipuncture / Unknown 03/27/2025 6:15 AM EDT 03/27/2025 10:58 AM EDT Smitha Mcbride MD LAB BLOOD ORDERABLES Fin al Result Performing Organization Address City/[facility]/ZIP Co de Phone Number [facility] [address] [place] [address], [place] [phone] * (ABNORMAL) CBC auto differential (03/27/2025 6:15 AM EDT) Pathologist [facility] WBC 9.5 4.8 - 10.8 K/[facility] LAB HEMETOLOGY METHOD 03/27/2025 12:08 PM EDT [facility] RBC 3.80(L) 4.50 - 5.50 M/[facility] LAB HEMETOLOGY METHOD 03/27/2025 12:08 PM [facility] Hemoglobin 11.7(L) 13.5 - 17.5 g/dL LAB HEMETOLOGY METHOD 03/27/2025 12:08 PM [facility] Hematocrit 36.3(L) 42.0 - 54.0 % LAB HEMETOLOGY METHOD 03/27/2025 12:08 PM [facility] MCV 96.5 79.0 - 98.0 FL LAB HEMETOLOGY METHOD 03/27/2025 12:08 PM [facility] MCH 31.1 27.0 - 32.0 pcg LAB HEMETOLOGY METHOD 03/27/2025 12:08 PM [facility] MCHC 32.2 32.0 - 37.0 g/dL LAB HEMETOLOGY METHOD 03/27/2025 12:08 PM [facility] RDW 12.1 11.0 - 15.0 % LAB HEMETOLOGY METHOD 03/27/2025 12:08 PM [facility] Platelets 371 130 - 400 K/mcL LAB HEMETOLOGY METHOD 03/27/2025 12:08 PM [facility] MPV 9.7 7.0 - 11.0 FL LAB HEMETOLOGY METHOD 03/27/2025 12:08 PM [facility] NRBC 0.0 <1.0 % LAB HEMETOLOGY METHOD 03/27/2025 12:08 PM [facility] NRBC Absolute 0.00 <0.10 K/mcL LAB HEMETOLOGY METHOD 03/27/2025 12:08 PM [facility] Neutrophils Relative 56.7 % LAB HEMETOLOGY METHOD 03/27/2025 12:08 PM [facility] Lymphocytes Relative 30.4 % LAB HEMETOLOGY METHOD 03/27/2025 12:08 PM [facility] Monocytes Relative 6.9 % LAB HEMETOLOGY METHOD 03/27/2025 12:08 PM EDT [facility] Eosinophils Relative 4.3 % LAB HEMETOLOGY METHOD 03/27/2025 12:08 PM EDT [facility] Basophils Relative 0.8 % LAB HEMETOLOGY METHOD 03/27/2025 12:08 PM EDT [facility] Immature Granulocytes Relative 0.9 % LAB HEMETOLOGY METHOD 03/27/2025 12:08 PM EDT [facility] Neutrophils Absolute 5.37 1.50 - 7.00 K/mcL LAB HEMETOLOGY METHOD 03/27/2025 12:08 PM EDT [facility] Lymphocytes Absolute 2.88 1.00 - 5.00 K/mcL LAB HEMETOLOGY METHOD 03/27/2025 12:08 PM EDT [facility] Monocytes Absolute 0.65 0.20 - 1.00 K/mcL LAB HEMETOLOGY METHOD 03/27/2025 12:08 PM EDT [facility] Eosinophils Absolute 0.41 0.00 - 0.50 K/mcL LAB HEMETOLOGY METHOD 03/27/2025 12:08 PM EDT [facility] Basophils Absolute 0.08 0.00 - 0.20 K/mcL LAB HEMETOLOGY METHOD 03/27/2025 12:08 PM EDT [facility] Immature Granulocytes Absolute 0.09(H) 0.00 - 0.03 K/mcL LAB HEMETOLOGY METHOD 03/27/2025 12:08 PM [facility] Blood Venous blood specimen / Unknown Venipuncture / Unknown 03/27/2025 6:15 AM EDT 03/27/2025 10:58 AM EDT us Smitha Mcbride MD LAB BLOOD ORDERABLES Fin al Result [facility] [address] [place] [address], [place] [phone] * (ABNORMAL) Sedimentation rate (03/27/2025 6:15 AM EDT) [facility] Sed Rate 32(H) 0 - 20 mm/hr LAB HEMETOLOGY METHOD 03/27/2025 12:24 PM EDT [facility] Blood Venous blood specimen / Unknown Venipuncture / Unknown 03/27/2025 6:15 AM EDT 03/27/2025 10:58 AM EDT Smitha Mcbride MD LAB BLOOD ORDERABLES Fin al Result Performing Organization Address City/State/[facility] Co de Phone Number [facility] [address] [place] [address], [place] [phone] * Basic metabolic panel (03/27/2025 6:15 AM EDT) [facility] Sodium 141 133 - 145 mmol/L LAB CHEMISTRY METHOD 03/27/2025 1:39 PM [facility] Potassium 4.1 3.5 - 5.5 mmol/L LAB CHEMISTRY METHOD 03/27/2025 1:39 PM [facility] Chloride 105 96 - 110 mmol/L LAB CHEMISTRY METHOD 03/27/2025 1:39 PM [facility] CO2 30 21 - 32 mmol/L LAB CHEMISTRY METHOD 03/27/2025 1:39 PM [facility] Anion Gap 6 3 - 11 LAB CHEMISTRY METHOD 03/27/2025 1:39 PM [facility] Glucose 98 70 - 100 mg/dL LAB CHEMISTRY METHOD 03/27/2025 1:39 PM [facility] BUN 12 5 - 25 mg/dL LAB CHEMISTRY METHOD 03/27/2025 1:39 PM [facility] Creatinine 0.75 0.70 - 1.30 mg/dL LAB CHEMISTRY METHOD 03/27/2025 1:39 PM EDT [facility] eGFR 93 >=60 mL/min/1. 73m2 LAB CHEMISTRY METHOD 03/27/2025 1:39 PM EDT [facility] Comment:Calculation based on the Chronic Kidney Disease Epidemiology Collaboration (CKD-EPI) equation refit without adjustment for race. BUN/Creatinine Ratio 16.0 LAB CHEMISTRY METHOD 03/27/2025 1:39 PM EDT [facility] Calcium 8.6 8.5 - 10.5 mg/dL LAB CHEMISTRY METHOD 03/27/2025 1:39 PM EDT [facility] Blood Venous blood specimen / Unknown Venipuncture / Unknown 03/27/2025 6:15 AM EDT 03/27/2025 10:58 AM EDT us Smitha Mcbride MD LAB BLOOD ORDERABLES Fin al Result [facility] [address] [place] [address], documented in this encounter Visit Diagnoses Diagnosis Rhabdomyolysis Anemia, unspecified Other disorders of electrolyte and fluid balance, not elsewhere classified Allergy, unspecified, initial encounter documented in this encounter Additional Health Concerns Assessment Noted Time PHQ-9 Depression Total Score: 0 01/17/20 25 8:47 AM EDT A fall risk assessment has been complete d for the patient 01/16/2025 8:47 AM EDT documented as of this encounter Care Teams Diesel Engineer Relationship Specialty Start Date End Date Av Weathers PA [address] [place] [id number] PCP - General Internal Medicine 12/12/20 documented as of this encounter
--- OUTSIDE RECORDS SUMMARY | 2025-08-03 09:37 | XMS_ITS | Encounter Summary ---
Author Organization [facility] Address [address] [place] [address] Care Team Providers Care Internal Audit Manager Name Role Phone Av Weathers Primary Care Provider +1 [phone] Encounter Details Date Type Department Care Team (Late st Contact Info) Description 04/29/2025 Lab Requisition [facility] - Main Lab [address] [facility] [address] Smitha Mcbride MD [address] [id number] Vitamin D deficiency, unspecified; Rhabdomyolysis Social History Tobacco Use Types Packs/Day [...] for your loved ones. For example, children's choir director or elderly care for an older adult? [...] Procedure Name Priority Date/Time Associated Diagnosis Comments VITAMIN D 25 HYDROXY Routine 05/01/2025 6:37 AM EDT Vitamin D deficiency, unspecified Rhabdomyolysis COMPLETE BLOOD COUNT Routine 05/01/2025 6:37 AM EDT Vitamin D deficiency, unspecified Rhabdomyolysis BASIC METABOLIC PANEL Routine 05/01/2025 6:37 AM EDT Vitamin D deficiency, unspecified Rhabdomyolysis documented in this encounter Results * (ABNORMAL) Complete blood count (05/01/2025 6:37 AM EDT) [facility] WBC 10.1 4.8 - 10.8 K/mcL LAB HEMETOLOGY METHOD 05/01/2025 12:09 PM [facility] RBC 4.00(L) 4.50 - 5.50 M/mcL LAB HEMETOLOGY METHOD 05/01/2025 12:09 PM [facility] Hemoglobin 12.3(L) 13.5 - 17.5 g/dL LAB HEMETOLOGY METHOD 05/01/2025 12:09 PM [facility] Hematocrit 38.7(L) 42.0 - 54.0 % LAB HEMETOLOGY METHOD 05/01/2025 12:09 PM [facility] MCV 96.8 79.0 - 98.0 FL LAB HEMETOLOGY METHOD 05/01/2025 12:09 PM [facility] MCH 30.8 27.0 - 32.0 pcg LAB HEMETOLOGY METHOD 05/01/2025 12:09 PM [facility] MCHC 31.8(L) 32.0 - 37.0 g/dL LAB HEMETOLOGY METHOD 05/01/2025 12:09 PM [facility] RDW 12.5 11.0 - 15.0 % LAB HEMETOLOGY METHOD 05/01/2025 12:09 PM [facility] Platelets 309 130 - 400 K/mcL LAB HEMETOLOGY METHOD 05/01/2025 12:09 PM [facility] MPV 9.8 7.0 - 11.0 FL LAB HEMETOLOGY METHOD 05/01/2025 12:09 PM [facility] NRBC 0.0 <1.0 % LAB HEMETOLOGY METHOD 05/01/2025 12:09 PM [facility] NRBC Absolute 0.00 <0.10 K/mcL LAB HEMETOLOGY METHOD 05/01/2025 12:09 PM [facility] Blood Venous blood specimen / Unknown Venipuncture / Unknown 05/01/2025 6:37 AM EDT 05/01/2025 10:49 AM EDT us Smitha Mcbride MD LAB BLOOD ORDERABLES Fin al Result [facility] [address] [place] [address], [place] [phone] * Basic metabolic panel (05/01/2025 6:37 AM EDT) Sodium 139 133 - 145 mmol/L LAB CHEMISTRY METHOD 05/01/2025 11:59 AM [facility] Potassium 4.0 3.5 - 5.5 mmol/L LAB CHEMISTRY METHOD 05/01/2025 11:59 AM [facility] Chloride 102 96 - 110 mmol/L LAB CHEMISTRY METHOD 05/01/2025 11:59 AM [facility] CO2 31 21 - 32 mmol/L LAB CHEMISTRY METHOD 05/01/2025 11:59 AM [facility] Anion Gap 6 3 - 11 LAB CHEMISTRY METHOD 05/01/2025 11:59 AM [facility] Glucose 87 70 - 100 mg/dL LAB CHEMISTRY METHOD 05/01/2025 11:59 AM [facility] BUN 15 5 - 25 mg/dL LAB CHEMISTRY METHOD 05/01/2025 11:59 AM [facility] Creatinine 0.96 0.70 - 1.30 mg/dL LAB CHEMISTRY METHOD 05/01/2025 11:59 AM [facility] eGFR 81 >=60 mL/min/1. 73m2 LAB CHEMISTRY METHOD 05/01/2025 11:59 AM EDT [facility] Comment:Calculation based on the Chronic Kidney Disease Epidemiology Collaboration (CKD-EPI) equation refit without adjustment for race. BUN/Creatinine Ratio 15.6 LAB CHEMISTRY METHOD 05/01/2025 11:59 AM EDT [facility] Calcium 9.3 8.5 - 10.5 mg/dL LAB CHEMISTRY METHOD 05/01/2025 11:59 AM EDT [facility] Blood Venous blood specimen / Unknown Venipuncture / Unknown 05/01/2025 6:37 AM EDT 05/01/2025 10:49 AM EDT Smitha Mcbride MD LAB BLOOD ORDERABLES Fin al Result Performing Organization Address [facility] Co de Phone Number [facility] [address] [place] [address], [place] [phone] * Vitamin D 25 hydroxy (05/01/2025 6:37 AM EDT) [facility] Vit D, 25-Hydroxy 44.1 30.0 - 80.0 ng/mL LAB CHEMISTRY METHOD 05/01/2025 1:24 PM EDT [facility] Blood Venous blood specimen / Unknown Venipuncture / Unknown 05/01/2025 6:37 AM EDT 05/01/2025 10:49 AM EDT Smitha Mcbride MD LAB BLOOD ORDERABLES Fin al Result [facility] [address] [place] [address], [place] [phone] documented in this encounter Visit Diagnoses Diagnosis Vitamin D deficiency, unspecified Rhabdomyolysis documented in this encounter Additional Health Concerns Assessment Noted Time PHQ-9 Depression Total Score: 0 01/17/20 25 8:47 AM EDT A fall risk assessment has been complete d for the patient 01/16/2025 8:47 AM EDT documented as of this encounter Care Teams Internal Audit Manager Relationship Specialty Start Date End Date Av Weathers PA [address] [place] [address] PCP - General Internal Medicine 12/12/20 documented as of this encounter
--- OUTSIDE RECORDS SUMMARY | 2025-08-03 09:37 | XMS_ITS | Encounter Summary ---
Author Organization [facility] Address [address] [place] [address] Care Team Providers Care College Archivist Name Role Phone Av Weathers Primary Care Provider [phone] [phone] Encounter Details Date Type Department Care Team (Late st Contact Info) Description 03/17/2025 Lab Requisition [facility] - Main Lab 299 [facility] [place] [address] Smitha Mcbride MD [address] [phone] Rhabdomyolysis Social History Tobacco Use Types Packs/Day [...] your loved ones. For example, child development director or elderly care for an older [...] on file documented as of this encounter Visit Diagnoses Diagnosis Rhabdomyolysis documented in this encounter Additional Health Concerns Assessment Noted Time PHQ-9 Depression Total Score: 0 01/17/20 25 8:47 AM EDT A fall risk assessment has been complete d for the patient 01/16/2025 8:47 AM EDT documented as of this encounter Care Teams College Archivist Relationship Specialty Start Date End Date Av Weathers PA [address] [place] [address] PCP - General Internal Medicine 12/12/20 documented as of this encounter
--- OUTSIDE RECORDS SUMMARY | 2025-08-03 09:37 | XMS_ITS | Clinical Summary ---
Author Organization [address] Address [address] [place] [address] [place] [address] Phone Care Team Providers Care Integrity Specialist Name Role Phone Av Weathers Primary Care Provider [phone] Allergies No known active allergies Medications thiamine [...] Problem Noted Date Diagnosed Date Atrial fibrillation ([facility] V24, [facility] V28) 0 01/15/2022 Asymptomatic varicose veins of bilateral lower e xtremities 01/15/2022 STEMI (ST elevation myocardi al infarction) ([facility] V24, [facility] V28) 12/27/2021 Impaired fasting blood sugar 12/12/2020 Onychomycosis 07/14/2018 Anxiety and depression 01/06/2018 Right hydrocele 01/25/2016 Bunion 02/09/2014 Elevated PSA 02/09/2014 HTN (hypertension) 05/14/2012 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 Encounters Date Type Department Care Team Description 08/01/2025 Lab Requisition [facility] [address] [place] [phone] Smitha Mcbride MD Hematuria, unspecified 07/04/2025 [place] [facility] [address] [address] Av Weathers PA 06/19/2025 Lab Requisition [facility] [address] [place] [phone] Smitha Mcbride MD Other invas tech (current) drug therapy 06/15/2025 Lab Requisition [facility] [address] [place] [phone] Smitha Mcbride MD Essential (primary) hypertension; Other specified disorders of brain; Rhabdomyolysis 06/14/2025 Lab Requisition [facility] [address] [place] [phone] Smitha Mcbride MD Unspecified atrial fibrillation ([facility] V24, [facility] V28); Essential (primary) hypertension; Personal history of transient ischemic attack (TIA), and 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 residual deficits 06/10/2025 Lab Requisition [facility] [address] [place] [phone] Smitha Mcbride MD Rhabdomyolysis; Impaired fasting glucose 06/02/2025 Lab Requisition [facility] [address] [place] [phone] Smitha Mcbride MD Rhabdomyolysis 05/27/2025 Lab Requisition [facility] [address] [place] [address] Smitha Mcbride MD Rhabdomyolysis 05/21/2025 Lab Requisition [facility] [address] [place] [address] Smitha Mcbride MD Rhabdomyolysis 05/12/2025 Lab Requisition [facility] [address] [place] [phone] Smitha cMbride MD Rhabdomyolysis 05/07/2025 Lab Requisition [facility] [address] [place] [phone] Smitha Mcbride MD Rhabdomyolysis from Last 3 Months Immunizations Immunization Administration Dates Next Due Influenza Quadravalent, MDCK [...] tension) Mild mental handicap 05/14/2012 DX:Mild men geraldo handicap Bunion 02/09/2014 DX:Bunion Elevated PSA 02/09/2014 [...] your loved ones. For example, child welfare social worker or elderly care for an older [...] 73 01/16/2025 8:46 AM EDT Temperature 35.8 C (96.5 F) 01/16/2025 8:46 AM EDT Respiratory Rate 15 01/16/2025 8:46 AM EDT Oxygen Saturation - - Inhaled Oxygen Concentration - - Weight 74.8 kg (165 lb) 01/16/2025 8:46 AM EDT Height 165.1 cm (5' 5 ) 01/16/2025 8:46 AM EDT Body Mass Index 27.46 01/16/2025 8:46 AM EDT Plan of Treatment Health Maintenance Due Date Last Done Comments Zoster Vaccines (1 of 2) 1997 Colorectal Cancer Screening: Stool Based Tests (FOBT/FIT) 09/13/2022 Medicare Annual Wellness Visit 09/13/2022 COVID-19 Vaccine ( season) 2025 07/27/2024, 07/16/2023, 06/23/2022, Additional history exists Influenza Vaccine (#1) 2025 , 07/16/2023, 06/23/2022, Additional history exists Falls Risk Assessment 01/16/2026 01/16/2025 Social Influencers of Health Screening 01/16/2026 01/16/2025 Hypertension/CHF/CAD Annual BMP Blood Test 06/15/2026 06/15/2025, 06/14/2025, 06/12/2025, Additional history exists Cholesterol Screening (Lipid Panel) 07/13/2029 07/13/2024, 07/13/2024 DTaP,Tdap,and Td Vaccines (3 - Td or Tdap) 10/20/2032 10/20/2022, 04/14/2012 Pneumococcal Vaccine: 50+ Years Completed 08/02/2015, 12/09/2012 Hepatitis C Screening Completed 11/06/2022 RSV Immunization Adult Patients Completed 08/13/2023 Depression Screening Completed 01/16/2025 HIB Vaccines Aged Out No longer eligi [...] Routine 07/31/2025 12:00 AM EDT Hematuria, unspecified DIGOXIN LEVEL Routine 06/19/2025 8:56 AM EDT Other invas tech (current) drug therapy B-TYPE NATRIURETIC PEPTIDE Routine 06/15/2025 6:37 AM EDT Essential (primary) hypertension Other specified disorders of brain Rhabdomyolysis BASIC METABOLIC PANEL Routine 06/15/2025 6:37 AM EDT Essential (primary) hypertension Other specified disorders of brain Rhabdomyolysis COMPLETE BLOOD COUNT Routine 06/15/2025 6:37 AM EDT Essential (primary) hypertension Other specified disorders of brain Rhabdomyolysis DIGOXIN LEVEL Routine 06/14/2025 6:47 AM EDT Unspecified atrial fibrillation (CMS/HCC V24, CMS/HCC V28) Essential (primary) hypertension Personal history of transient ischemic attack (TIA), and 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 residual deficits COMPREHENSIVE METABOLIC PANEL Routine 06/14/2025 6:47 AM EDT Unspecified atrial fibrillation (CMS/HCC V24, CMS/HCC V28) Essential (primary) hypertension Personal history of transient ischemic attack (TIA), and 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 residual deficits COMPLETE BLOOD COUNT Routine 06/14/2025 6:47 AM EDT Unspecified atrial fibrillation (CMS/HCC V24, CMS/HCC V28) Essential (primary) hypertension Personal history of transient ischemic attack (TIA), and 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 residual deficits HEMOGLOBIN A1C Routine 06/12/2025 9:45 AM EDT Rhabdomyolysis Impaired fasting glucose COMPLETE BLOOD COUNT Routine 06/12/2025 9:45 AM EDT Rhabdomyolysis Impaired fasting glucose BASIC METABOLIC PANEL Routine 06/12/2025 9:45 AM EDT Rhabdomyolysis Impaired fasting glucose COMPLETE BLOOD COUNT Routine 06/06/2025 9:39 AM EDT Rhabdomyolysis BASIC METABOLIC PANEL Routine 06/06/2025 9:39 AM EDT Rhabdomyolysis COMPLETE BLOOD COUNT Routine 05/29/2025 7:07 AM EDT Rhabdomyolysis BASIC METABOLIC PANEL Routine 05/29/2025 7:07 AM EDT Rhabdomyolysis COMPLETE BLOOD COUNT Routine 05/22/2025 5:42 AM EDT Rhabdomyolysis BASIC METABOLIC PANEL Routine 05/22/2025 5:42 AM EDT Rhabdomyolysis COMPLETE BLOOD COUNT Routine 05/15/2025 8:53 AM EDT Rhabdomyolysis BASIC METABOLIC PANEL Routine 05/15/2025 8:53 AM EDT Rhabdomyolysis COMPLETE BLOOD COUNT Routine 05/08/2025 5:13 AM EDT Rhabdomyolysis BASIC METABOLIC PANEL Routine 05/08/2025 5:13 AM EDT Rhabdomyolysis LIPID PANEL Routine 07/13/2024 HEPATITIS C SCREENING Routine 11/06/2022 from Last 3 Months or Most Recently Relevant to Health Maintenance Results * (ABNORMAL) Urinalysis with reflex microscopic (07/31/2025 12:00 AM EDT) Pathologist [facility] Specific [place] Urine 1.016 1.003 - 1.030 LAB URINALYSIS - AUTOMATED METHOD 08/01/2025 12:27 PM [facility] pH, Urine 6.5 5.0 - 8.0 pH LAB URINALYSIS - AUTOMATED METHOD 08/01/2025 12:27 PM [facility] Leukocytes, Urine Large(A) Negative LAB URINALYSIS - AUTOMATED METHOD 08/01/2025 12:27 PM [facility] Nitrite, Urine Negative Negative LAB URINALYSIS - AUTOMATED METHOD 08/01/2025 12:27 PM [facility] Protein, Urine 100(A) <=Trace mg/dL LAB URINALYSIS - AUTOMATED METHOD 08/01/2025 12:27 PM [facility] Glucose, Urine Negative Negative mg/dL LAB URINALYSIS - AUTOMATED METHOD 08/01/2025 12:27 PM [facility] Ketones, Urine Negative Negative mg/dL LAB URINALYSIS - AUTOMATED METHOD 08/01/2025 12:27 PM [facility] Urobilinogen , Urine 1.0 0.2 - 1.0 mg/dL LAB URINALYSIS - AUTOMATED METHOD 08/01/2025 12:27 PM [facility] Bilirubin, Urine Negative Negative LAB URINALYSIS - AUTOMATED METHOD 08/01/2025 12:27 PM [facility] Blood, Urine Large(A) Negative LAB URINALYSIS - AUTOMATED METHOD 08/01/2025 12:27 PM [facility] RBC, Urine 300.0(H) 0 - 4 /HPF LAB URINALYSIS - AUTOMATED METHOD 08/01/2025 12:27 PM [facility] WBC, Urine 565.7(H) 0 - 4 /HPF LAB URINALYSIS - AUTOMATED METHOD 08/01/2025 12:27 PM [facility] LAB Squamous Epithelial, Urine 18 0 - 60 /LPF LAB URINALYSIS - AUTOMATED METHOD 08/01/2025 12:27 PM [facility] LAB Crystals, Urine LT CALCIUM OXALATE /LPF LAB URINALYSIS - AUTOMATED METHOD 08/01/2025 12:27 PM [facility] Bacteria, Urine Few(A) Negative /HPF LAB URINALYSIS - AUTOMATED METHOD 08/01/2025 12:27 PM [facility] Hyaline Casts, Urine 3.0 0 - 3 /LPF LAB URINALYSIS - AUTOMATED METHOD 08/01/2025 12:27 PM EDT [facility] Urine Urine specimen obtained by clean catch procedure / Unknown Non-blood Collection / Unknown 07/31/2025 08/01/2025 11:04 AM EDT Smitha Mcbride MD LAB URINE ORDERABLES Fin al Result Performing Organization Address [facility] de Phone Number [facility] [address] [place] [address], [place] [phone] * Digoxin level (06/19/2025 8:56 AM EDT) Only the most recent of2 resultswithin the time period is included. Digoxin Lvl 0.7 0.5 - 2.0 ng/mL LAB CHEMISTRY METHOD 06/19/2025 2:07 PM EDT [facility] Blood Venous blood specimen / Unknown Venipuncture / Unknown 06/19/2025 8:56 AM EDT 06/19/2025 11:28 AM EDT Smitha Mcbride MD LAB BLOOD ORDERABLES Fin al Result Performing Organization Address [facility] de Phone Number [facility] [address] [place] [address], [place] [phone] * (ABNORMAL) Complete blood count (06/15/2025 6:37 AM EDT) Only the most recent of8 resultswithin the time period is included. WBC 9.0 4.8 - 10.8 K/[facility] LAB HEMETOLOGY METHOD 06/15/2025 9:05 AM EDT [facility] LAB RBC 4.10(L) 4.50 - 5.50 M/[facility] LAB HEMETOLOGY METHOD 06/15/2025 9:05 AM EDT [facility] LAB Hemoglobin 12.5(L) 13.5 - 17.5 g/dL LAB HEMETOLOGY METHOD 06/15/2025 9:05 AM T [facility] LAB Hematocrit 38.3(L) 42.0 - 54.0 % LAB HEMETOLOGY METHOD 06/15/2025 9:05 AM [facility] LAB MCV 92.7 79.0 - 98.0 FL LAB HEMETOLOGY METHOD 06/15/2025 9:05 AM EDT [facility] LAB MCH 30.3 27.0 - 32.0 pcg LAB HEMETOLOGY METHOD 06/15/2025 9:05 AM [facility] LAB MCHC 32.6 32.0 - 37.0 g/dL LAB HEMETOLOGY METHOD 06/15/2025 9:05 AM [facility] LAB RDW 12.0 11.0 - 15.0 % LAB HEMETOLOGY METHOD 06/15/2025 9:05 AM EDT [facility] LAB Platelets 288 130 - 400 K/mcL LAB HEMETOLOGY METHOD 06/15/2025 9:05 AM [facility] MPV 9.8 7.0 - 11.0 FL LAB HEMETOLOGY METHOD 06/15/2025 9:05 AM [facility] LAB NRBC 0.0 <1.0 % LAB HEMETOLOGY METHOD 06/15/2025 9:[facility] NRBC Absolute 0.00 <0.10 K/mcL LAB HEMETOLOGY METHOD 06/15/2025 9:05 AM [facility] LAB Blood Venous blood specimen / Unknown Venipuncture / Unknown 06/15/2025 6:37 AM EDT 06/15/2025 8:25 AM EDT us Smitha Mcbride MD LAB BLOOD ORDERABLES Fin al Result [facility] [address] [place] [address], [place] [phone] * (ABNORMAL) B-type natriuretic peptide (06/15/2025 6:37 AM EDT) BNP 192(H) <=100 pcg/mL LAB CHEMISTRY METHOD 06/15/2025 9:41 AM EDT [facility] Blood Venous blood specimen / Unknown Venipuncture / Unknown 06/15/2025 6:37 AM EDT 06/15/2025 8:25 AM EDT Smitha Mcbride MD LAB BLOOD ORDERABLES Fin al Result [facility] [address] [place] [address], [place] [phone] * (ABNORMAL) Basic metabolic panel (06/15/2025 6:37 AM EDT) Only the most recent of7 resultswithin the time period is included. Pathologist [facility] Sodium 139 133 - 145 mmol/L LAB CHEMISTRY METHOD 06/15/2025 9:43 AM [facility] Potassium 3.7 3.5 - 5.5 mmol/L LAB CHEMISTRY METHOD 06/15/2025 9:43 AM [facility] Chloride 103 96 - 110 mmol/L LAB CHEMISTRY METHOD 06/15/2025 9:43 AM [facility] CO2 31 21 - 32 mmol/L LAB CHEMISTRY METHOD 06/15/2025 9:43 AM [facility] Anion Gap 5 3 - 11 LAB CHEMISTRY METHOD 06/15/2025 9:43 AM [facility] Glucose 118(H) 70 - 100 mg/dL LAB CHEMISTRY METHOD 06/15/2025 9:43 AM [facility] BUN 18 5 - 25 mg/dL LAB CHEMISTRY METHOD 06/15/2025 9:43 AM [facility] LAB Creatinine 0.77 0.70 - 1.30 mg/dL LAB CHEMISTRY METHOD 06/15/2025 9:43 AM [facility] LAB eGFR 92 >=60 mL/min/1. 73m2 LAB CHEMISTRY METHOD 06/15/2025 9:43 AM [facility] LAB Comment:Calculation based on the Chronic Kidney Disease Epidemiology Collaboration (CKD-EPI) equation refit without adjustment for race. BUN/Creatinine Ratio 23.4 LAB CHEMISTRY METHOD 06/15/2025 9:43 AM [facility] LAB Calcium 9.2 8.5 - 10.5 mg/dL LAB CHEMISTRY METHOD 06/15/2025 9:43 AM [facility] Blood Venous blood specimen / Unknown Venipuncture / Unknown 06/15/2025 6:37 AM EDT 06/15/2025 8:25 AM EDT us Smitha Mcbride MD LAB BLOOD ORDERABLES Fin al Result [facility] [address] [place] [address], * (ABNORMAL) Comprehensive metabolic panel (06/14/2025 6:47 AM EDT) Sodium 138 133 - 145 mmol/L LAB CHEMISTRY METHOD 06/14/2025 10:17 AM [facility] Potassium 3.9 3.5 - 5.5 mmol/L LAB CHEMISTRY METHOD 06/14/2025 10:17 AM [facility] Chloride 103 96 - 110 mmol/L LAB CHEMISTRY METHOD 06/14/2025 10:17 AM [facility] CO2 32 21 - 32 mmol/L LAB CHEMISTRY METHOD 06/14/2025 10:17 AM [facility] Anion Gap 3 3 - 11 LAB CHEMISTRY METHOD 06/14/2025 10:17 AM [facility] Glucose 115(H) 70 - 100 mg/dL LAB CHEMISTRY METHOD 06/14/2025 10:17 AM [facility] BUN 18 5 - 25 mg/dL LAB CHEMISTRY METHOD 06/14/2025 10:17 AM [facility] Creatinine 0.87 0.70 - 1.30 mg/dL LAB CHEMISTRY METHOD 06/14/2025 10:17 AM [facility] LAB eGFR 89 >=60 mL/min/1. 73m2 LAB CHEMISTRY METHOD 06/14/2025 10:17 AM [facility] LAB Comment:Calculation based on the Chronic Kidney Disease Epidemiology Collaboration (CKD-EPI) equation refit without adjustment for race. BUN/Creatinine Ratio 20.7 LAB CHEMISTRY METHOD 06/14/2025 10:17 AM [facility] Calcium 9.2 8.5 - 10.5 mg/dL LAB CHEMISTRY METHOD 06/14/2025 10:17 AM [facility] AST (SGOT) 17 10 - 42 unit/L LAB CHEMISTRY METHOD 06/14/2025 10:17 AM [facility] ALT (SGPT) 19 10 - 60 unit/L LAB CHEMISTRY METHOD 06/14/2025 10:17 AM [facility] Alkaline Phosphatase 82 42 - 121 unit/L LAB CHEMISTRY METHOD 06/14/2025 10:17 AM [facility] Total Protein 6.4 6.0 - 8.0 g/dL LAB CHEMISTRY METHOD 06/14/2025 10:17 AM [facility] Albumin 3.4 3.2 - 5.0 g/dL LAB CHEMISTRY METHOD 06/14/2025 10:17 AM [facility] Total Bilirubin 0.6 0.0 - 1.4 mg/dL LAB CHEMISTRY METHOD 06/14/2025 10:17 AM [facility] Blood Venous blood specimen / Unknown Venipuncture / Unknown 06/14/2025 6:47 AM EDT 06/14/2025 9:12 AM EDT Smitha Mcbride MD LAB BLOOD ORDERABLES Fin al Result Performing Organization Address [facility] Co de Phone Number [facility] [address] [place] [address], [place] [phone] * Hemoglobin A1c (06/12/2025 9:45 AM EDT) [facility] Hemoglobin A1C 6.2 <6.5 % LAB CHEMISTRY METHOD 06/13/2025 8:35 AM EDT [facility] Mean Bld Glu Estim. 131 mg/dL LAB CHEMISTRY METHOD 06/13/2025 8:35 AM EDT [facility] Blood Venous blood specimen / Unknown Venipuncture / Unknown 06/12/2025 9:45 AM EDT 06/12/2025 12:06 PM EDT Smitha Mcbride MD LAB BLOOD ORDERABLES Fin al Result Performing Organization Address [facility] de Phone Number [facility] [address] [place] [address], [place] [phone] * (ABNORMAL) Lipid panel (07/13/2024) [facility] LDL/HDL Ratio 2 0 - 4 Triglycerides 98 0 - 150 mg/dL Cholesterol 202(A) 0 - 200 mg/dL HDL 87 >=40 mg/dL LDL Cholesterol 96 0 - 100 mg/dL Blood Venous blood specimen / Unknown Historical Safia GALE LAB BLOOD ORDERABLES Bobbi l Result * Hepatitis C Screening (11/06/2022) Pathologist [facility] Hepatitis C Screening abstracted Historical Safia GALE HEALTH MAINTENANCE Final Result from Last 3 Months or Most Recently Relevant to Health Maintenance Insurance MEDICAID - [place] [employer] [place] MEDIC[place] [employer]ANTAGE Care Teams Integrity Specialist Relationship Specialty Start Date End Date Av Weathers PA [address] [place] [address] PCP - General Internal Medicine 12/12/20
--- OUTSIDE RECORDS SUMMARY | 2025-08-03 09:37 | XMS_ITS | Encounter Summary ---
Author Organization [facility] Address [address] [place] [address] Care Team Providers Care Shadowgraph Scale Operator Name Role Phone Av Weathers Primary Care Provider [phone] Encounter Details Date Type Department Care Team (Late st Contact Info) Description 04/07/2025 Lab Requisition [facility] [address] [facility] [place] [address] Smitha Mcbride MD [address] [id number] Rhabdomyolysis Social History Tobacco Use Types Packs/Day [...] Associated Diagnosis Comments COMPLETE BLOOD COUNT Routine 04/10/2025 7:05 AM EDT Rhabdomyolysis BASIC METABOLIC PANEL Routine 04/10/2025 7:05 AM EDT Rhabdomyolysis documented in this encounter Results * (ABNORMAL) Basic metabolic panel (04/10/2025 7:05 AM EDT) Sodium 140 133 - 145 mmol/L LAB CHEMISTRY METHOD 04/10/2025 12:08 PM [facility] Potassium 3.7 3.5 - 5.5 mmol/L LAB CHEMISTRY METHOD 04/10/2025 12:08 PM [facility] Chloride 104 96 - 110 mmol/L LAB CHEMISTRY METHOD 04/10/2025 12:08 PM [facility] CO2 29 21 - 32 mmol/L LAB CHEMISTRY METHOD 04/10/2025 12:08 PM [facility] Anion Gap 7 3 - 11 LAB CHEMISTRY METHOD 04/10/2025 12:08 PM [facility] Glucose 109(H) 70 - 100 mg/dL LAB CHEMISTRY METHOD 04/10/2025 12:08 PM [facility] BUN 14 5 - 25 mg/dL LAB CHEMISTRY METHOD 04/10/2025 12:08 PM [facility] Creatinine 0.70 0.70 - 1.30 mg/dL LAB CHEMISTRY METHOD 04/10/2025 12:08 PM [facility] eGFR 95 >=60 mL/min/1. 73m2 LAB CHEMISTRY METHOD 04/10/2025 12:08 PM [facility] Comment:Calculation based on the Chronic Kidney Disease Epidemiology Collaboration (CKD-EPI) equation refit without adjustment for race. BUN/Creatinine Ratio 20.0 LAB CHEMISTRY METHOD 04/10/2025 12:08 PM [facility] Calcium 9.0 8.5 - 10.5 mg/dL LAB CHEMISTRY METHOD 04/10/2025 12:08 PM [facility] Blood Venous blood specimen / Unknown Venipuncture / Unknown 04/10/2025 7:05 AM EDT 04/10/2025 10:47 AM EDT us Smitha Mcbride MD LAB BLOOD ORDERABLES Fin al Result [facility] [address] [place], [place] [address] [phone] * (ABNORMAL) Complete blood count (04/10/2025 7:05 AM EDT) [facility] WBC 9.4 4.8 - 10.8 K/mcL LAB HEMETOLOGY METHOD 04/10/2025 11:21 AM [facility] RBC 3.70(L) 4.50 - 5.50 M/mcL LAB HEMETOLOGY METHOD 04/10/2025 11:21 AM [facility] Hemoglobin 11.7(L) 13.5 - 17.5 g/dL LAB HEMETOLOGY METHOD 04/10/2025 11:21 AM [facility] Hematocrit 35.5(L) 42.0 - 54.0 % LAB HEMETOLOGY METHOD 04/10/2025 11:21 AM [facility] MCV 96.5 79.0 - 98.0 FL LAB HEMETOLOGY METHOD 04/10/2025 11:21 AM [facility] MCH 31.8 27.0 - 32.0 pcg LAB HEMETOLOGY METHOD 04/10/2025 11:21 AM [facility] MCHC 33.0 32.0 - 37.0 g/dL LAB HEMETOLOGY METHOD 04/10/2025 11:21 AM [facility] RDW 12.4 11.0 - 15.0 % LAB HEMETOLOGY METHOD 04/10/2025 11:21 AM [facility] Platelets 302 130 - 400 K/mcL LAB HEMETOLOGY METHOD 04/10/2025 11:21 AM [facility] MPV 9.9 7.0 - 11.0 FL LAB HEMETOLOGY METHOD 04/10/2025 11:21 AM [facility] NRBC 0.0 <1.0 % LAB HEMETOLOGY METHOD 04/10/2025 11:21 AM EDT [facility] NRBC Absolute 0.00 <0.10 K/[facility] LAB HEMETOLOGY METHOD 04/10/2025 11:21 AM EDT [facility] Blood Venous blood specimen / Unknown Venipuncture / Unknown 04/10/2025 7:05 AM EDT 04/10/2025 10:50 AM EDT us Smitha Mcbride MD LAB BLOOD ORDERABLES Fin al Result [facility] [address] [place] [address], documented in this encounter Visit Diagnoses Diagnosis Rhabdomyolysis documented in this encounter Additional Health Concerns Assessment Noted Time PHQ-9 Depression Total Score: 0 01/17/20 25 8:47 AM EDT A fall risk assessment has been complete d for the patient 01/16/2025 8:47 AM EDT documented as of this encounter Care Teams Shadowgraph Scale Operator Relationship Specialty Start Date End Date Av Weathers PA [address] [place] [address] PCP - General Internal Medicine 12/12/20 documented as of this encounter
--- OUTSIDE RECORDS SUMMARY | 2025-08-03 09:37 | XMS_ITS | Encounter Summary ---
Author Organization [facility] Address [address] [place] [address] Care Team Providers Care Print Room Worker Name Role Phone Av Weathers Primary Care Provider [phone] [phone] Encounter Details Date Type Department Care Team (Late st Contact Info) Description 02/19/2025 Lab Requisition [facility] - Main Lab 299 [facility] [place] [address] Smitha Mcbride MD [address] [phone] Rhabdomyolysis; Weakness Social History Tobacco Use Types Packs/Day Years [...] your loved ones. For example, child care giver or elderly care for an older adult? [...] Associated Diagnosis Comments COMPLETE BLOOD COUNT Routine 02/20/2025 6:50 AM EDT Rhabdomyolysis Weakness COMPREHENSIVE METABOLIC PANEL Routine 02/20/2025 6:50 AM EDT Rhabdomyolysis Weakness documented in this encounter Results * (ABNORMAL) Complete blood count (02/20/2025 6:50 AM EDT) WBC 11.1(H) 4.8 - 10.8 K/[facility] LAB HEMETOLOGY METHOD 02/20/2025 2:14 PM [facility] LAB RBC 4.00(L) 4.50 - 5.50 M/mcL LAB HEMETOLOGY METHOD 02/20/2025 2:14 PM [facility] LAB Hemoglobin 13.2(L) 13.5 - 17.5 g/dL LAB HEMETOLOGY METHOD 02/20/2025 2:14 PM [facility] LAB Hematocrit 39.7(L) 42.0 - 54.0 % LAB HEMETOLOGY METHOD 02/20/2025 2:14 PM [facility] LAB MCV 99.5(H) 79.0 - 98.0 FL LAB HEMETOLOGY METHOD 02/20/2025 2:14 PM [facility] LAB MCH 33.1(H) 27.0 - 32.0 pcg LAB HEMETOLOGY METHOD 02/20/2025 2:14 PM [facility] LAB MCHC 33.2 32.0 - 37.0 g/dL LAB HEMETOLOGY METHOD 02/20/2025 2:14 PM [facility] LAB RDW 12.0 11.0 - 15.0 % LAB HEMETOLOGY METHOD 02/20/2025 2:14 PM [facility] LAB Platelets 453(H) 130 - 400 K/mcL LAB HEMETOLOGY METHOD 02/20/2025 2:14 PM [facility] LAB MPV 9.8 7.0 - 11.0 FL LAB HEMETOLOGY METHOD 02/20/2025 2:14 PM [facility] LAB NRBC 0.0 <1.0 % LAB HEMETOLOGY METHOD 02/20/2025 2:14 PM [facility] LAB NRBC Absolute 0.00 <0.10 K/mcL LAB HEMETOLOGY METHOD 02/20/2025 2:14 PM EDT [facility] Blood Venous blood specimen / Unknown Venipuncture / Unknown 02/20/2025 6:50 AM EDT 02/20/2025 12:32 PM EDT Smitha Mcbride MD LAB BLOOD ORDERABLES Fin al Result [facility] [address] [place] [address], * (ABNORMAL) Comprehensive metabolic panel (02/20/2025 6:50 AM EDT) Sodium 137 133 - 145 mmol/L LAB CHEMISTRY METHOD 02/20/2025 1:57 PM [facility] LAB Potassium 4.1 3.5 - 5.5 mmol/L LAB CHEMISTRY METHOD 02/20/2025 1:57 PM [facility] LAB Chloride 104 96 - 110 mmol/L LAB CHEMISTRY METHOD 02/20/2025 1:57 PM [facility] LAB CO2 26 21 - 32 mmol/L LAB CHEMISTRY METHOD 02/20/2025 1:57 PM [facility] LAB Anion Gap 7 3 - 11 LAB CHEMISTRY METHOD 02/20/2025 1:57 PM [facility] LAB Glucose 100 70 - 100 mg/dL LAB CHEMISTRY METHOD 02/20/2025 1:57 PM [facility] LAB BUN 13 5 - 25 mg/dL LAB CHEMISTRY METHOD 02/20/2025 1:57 PM [facility] LAB Creatinine 0.64(L) 0.70 - 1.30 mg/dL LAB CHEMISTRY METHOD 02/20/2025 1:57 PM [facility] LAB eGFR 98 >=60 mL/min/1. 73m2 LAB CHEMISTRY METHOD 02/20/2025 1:57 PM [facility] LAB Comment:Calculation based on the Chronic Kidney Disease Epidemiology Collaboration (CKD-EPI) equation refit without adjustment for race. BUN/Creatinine Ratio 20.3 LAB CHEMISTRY METHOD 02/20/2025 1:57 PM EDT [facility] Calcium 9.1 8.5 - 10.5 mg/dL LAB CHEMISTRY METHOD 02/20/2025 1:57 PM EDT [facility] AST (SGOT) 19 10 - 42 unit/L LAB CHEMISTRY METHOD 02/20/2025 1:57 PM EDT [facility] ALT (SGPT) 38 10 - 60 unit/L LAB CHEMISTRY METHOD 02/20/2025 1:57 PM EDT [facility] Alkaline Phosphatase 96 42 - 121 unit/L LAB CHEMISTRY METHOD 02/20/2025 1:57 PM EDT [facility] Total Protein 6.7 6.0 - 8.0 g/dL LAB CHEMISTRY METHOD 02/20/2025 1:57 PM EDT [facility] Albumin 3.3 3.2 - 5.0 g/dL LAB CHEMISTRY METHOD 02/20/2025 1:57 PM EDT [facility] Total Bilirubin 0.4 0.0 - 1.4 mg/dL LAB CHEMISTRY METHOD 02/20/2025 1:57 PM EDT [facility] Blood Venous blood specimen / Unknown Venipuncture / Unknown 02/20/2025 6:50 AM EDT 02/20/2025 12:34 PM EDT us Smitha Mcbride MD LAB BLOOD ORDERABLES Fin al Result [facility] [address] [place] [address], documented in this encounter Visit Diagnoses Diagnosis Rhabdomyolysis Weakness Other malaise and fatigue documented in this encounter Additional Health Concerns Assessment Noted Time PHQ-9 Depression Total Score: 0 01/17/20 8:47 AM EDT A fall risk assessment has been complete d for the patient 01/16/2025 8:47 AM EDT documented as of this encounter Care Teams Print Room Worker Relationship Specialty Start Date End Date Av Weathers PA [address] [place] [address] PCP - General Internal Medicine 12/12/20 documented as of this encounter
--- OUTSIDE RECORDS SUMMARY | 2025-08-03 09:37 | XMS_ITS | Encounter Summary ---
Author Organization [facility] [address] Address [address] [place] [address] Care Team Providers Care Retort Load Expediter Name Role Phone Av Weathers Primary Care Provider +1 [phone] Encounter Details Date Type Department Care Team (Late st Contact Info) Description 06/15/2025 Lab Requisition [facility] - Main Lab 299 [facility] [place] [address] Smitha Mcbride MD [address] [phone] Essential (primary) hypertension; Other specified disorders of brain; Rhabdomyolysis Social History Tobacco Use Types Packs/Day [...] care for your loved ones. For example, early childhood assistant or elderly care for an older [...] Associated Diagnosis Comments COMPLETE BLOOD COUNT Routine 06/15/2025 6:37 AM EDT Essential (primary) hypertension Other specified disorders of brain Rhabdomyolysis B-TYPE NATRIURETIC PEPTIDE Routine 06/15/2025 6:37 AM EDT Essential (primary) hypertension Other specified disorders of brain Rhabdomyolysis BASIC METABOLIC PANEL Routine 06/15/2025 6:37 AM EDT Essential (primary) hypertension Other specified disorders of brain Rhabdomyolysis documented in this encounter Results * (ABNORMAL) B-type natriuretic peptide (06/15/2025 6:37 AM EDT) Pathologist [facility] BNP 192(H) <=100 pcg/mL LAB CHEMISTRY METHOD 06/15/2025 9:41 AM EDT [facility] Blood Venous blood specimen / Unknown Venipuncture / Unknown 06/15/2025 6:37 AM EDT 06/15/2025 8:25 AM EDT us Smitha Mcbride MD LAB BLOOD ORDERABLES Fin al Result [facility] [address] [place] [address], [place] [phone] * (ABNORMAL) Basic metabolic panel (06/15/2025 6:37 AM EDT) [facility] Sodium 139 133 - 145 mmol/L LAB CHEMISTRY METHOD 06/15/2025 9:43 AM [facility] Potassium 3.7 3.5 - 5.5 mmol/L LAB CHEMISTRY METHOD 06/15/2025 9:43 AM [facility] Chloride 103 96 - 110 mmol/L LAB CHEMISTRY METHOD 06/15/2025 9:43 AM [facility] CO2 31 21 - 32 mmol/L LAB CHEMISTRY METHOD 06/15/2025 9:43 AM [facility] Anion Gap 5 3 - 11 LAB CHEMISTRY METHOD 06/15/2025 9:43 AM [facility] Glucose 118(H) 70 - 100 mg/dL LAB CHEMISTRY METHOD 06/15/2025 9:43 AM [facility] BUN 18 5 - 25 mg/dL LAB CHEMISTRY METHOD 06/15/2025 9:43 AM [facility] Creatinine 0.77 0.70 - 1.30 mg/dL LAB CHEMISTRY METHOD 06/15/2025 9:43 AM EDT [facility] eGFR 92 >=60 mL/min/1. 73m2 LAB CHEMISTRY METHOD 06/15/2025 9:43 AM EDT [facility] Comment:Calculation based on the Chronic Kidney Disease Epidemiology Collaboration (CKD-EPI) equation refit without adjustment for race. BUN/Creatinine Ratio 23.4 LAB CHEMISTRY METHOD 06/15/2025 9:43 AM EDT [facility] Calcium 9.2 8.5 - 10.5 mg/dL LAB CHEMISTRY [facility] Venous blood specimen / Unknown Venipuncture / Unknown 06/15/2025 6:37 AM EDT 06/15/2025 8:25 AM EDT Smitha Mcbride MD LAB BLOOD ORDERABLES Fin al Result [facility] [address] [place] [address], * (ABNORMAL) Complete blood count (06/15/2025 6:37 AM EDT) WBC 9.0 4.8 - 10.8 K/mcL LAB HEMETOLOGY METHOD 06/15/2025 9:05 AM [facility] RBC 4.10(L) 4.50 - 5.50 M/[facility] LAB HEMETOLOGY METHOD 06/15/2025 9:05 AM [facility] Hemoglobin 12.5(L) 13.5 - 17.5 g/dL LAB HEMETOLOGY METHOD 06/15/2025 9:05 AM [facility] Hematocrit 38.3(L) 42.0 - 54.0 % LAB HEMETOLOGY METHOD [facility]/15[facility]2025 [facility] MCV 92.7 79.0 - 98.0 FL LAB HEMETOLOGY METHOD 06/15/2025 9:05 AM EDT [facility] MCH 30.3 27.0 - 32.0 pcg LAB HEMETOLOGY METHOD 06/15/2025 9:05 AM EDT [facility] MCHC 32.6 32.0 - 37.0 g/dL LAB HEMETOLOGY METHOD 06/15/2025 9:05 AM EDT [facility] RDW 12.0 11.0 - 15.0 % LAB HEMETOLOGY METHOD 06/15/2025 9:05 AM EDT [facility] Platelets 288 130 - 400 K/mcL LAB HEMETOLOGY METHOD 06/15/2025 9:05 AM T [facility] MPV 9.8 7.0 - 11.0 FL LAB HEMETOLOGY METHOD 06/15/2025 9:05 AM EDT [facility] NRBC 0.0 <1.0 % LAB HEMETOLOGY METHOD 06/15/2025 9:05 AM [facility] NRBC Absolute 0.00 <0.10 K/mcL LAB HEMETOLOGY METHOD 06/15/2025 9:05 AM [facility] Blood Venous blood specimen / Unknown Venipuncture / Unknown 06/15/2025 6:37 AM EDT 06/15/2025 8:25 AM EDT us Smitha Mcbride MD LAB BLOOD ORDERABLES Fin al Result [facility] [address] [place] [address], documented in this encounter Visit Diagnoses Diagnosis Essential (primary) hypertension Unspecified essential hypertension Other specified disorders of brain Rhabdomyolysis documented in this encounter Additional Health Concerns Assessment Noted Time PHQ-9 Depression Total Score: 0 01/17/20 8:47 AM EDT A fall risk assessment has been complete d for the patient 01/16/2025 8:47 AM EDT documented as of this encounter Care Teams Retort Load Expediter Relationship Specialty Start Date End Date Av Weathers PA [address] [place] [address] PCP - General Internal Medicine 12/12/20 documented as of this encounter
--- OUTSIDE RECORDS SUMMARY | 2025-08-03 09:37 | XMS_ITS | Encounter Summary ---
Author Organization [facility] Address [address] [place] [address] Care Team Providers Care Police Officer Name Role Phone Av Weathers Primary Care Provider +1 [phone] Encounter Details Date Type Department Care Team (Late st Contact Info) Description 03/31/2025 Lab Requisition [facility] - Main Lab 299 [facility] [place] [address] Smitha Mcbride MD [address] [phone] Rhabdomyolysis Social History Tobacco Use Types Packs/Day [...] your loved ones. For example, child development specialist or elderly care for an older adult? [...] Associated Diagnosis Comments COMPLETE BLOOD COUNT Routine 04/03/2025 6:11 AM EDT Rhabdomyolysis BASIC METABOLIC PANEL Routine 04/03/2025 6:11 AM EDT Rhabdomyolysis documented in this encounter Results * (ABNORMAL) Complete blood count (04/03/2025 6:11 AM EDT) WBC 9.7 4.8 - 10.8 K/[facility] LAB HEMETOLOGY METHOD 04/03/2025 10:54 AM [facility] LAB RBC 3.90(L) 4.50 - 5.50 M/mcL LAB HEMETOLOGY METHOD 04/03/2025 10:54 AM [facility] LAB Hemoglobin 12.3(L) 13.5 - 17.5 g/dL LAB HEMETOLOGY METHOD 04/03/2025 10:54 AM [facility] LAB Hematocrit 37.8(L) 42.0 - 54.0 % LAB HEMETOLOGY METHOD 04/03/2025 10:54 AM [facility] LAB MCV 97.4 79.0 - 98.0 FL LAB HEMETOLOGY METHOD 04/03/2025 10:54 AM [facility] LAB MCH 31.7 27.0 - 32.0 pcg LAB HEMETOLOGY METHOD 04/03/2025 10:54 AM [facility] LAB MCHC 32.5 32.0 - 37.0 g/dL LAB HEMETOLOGY METHOD 04/03/2025 10:54 AM [facility] LAB RDW 12.2 11.0 - 15.0 % LAB HEMETOLOGY METHOD 04/03/2025 10:54 AM [facility] LAB Platelets 304 130 - 400 K/mcL LAB HEMETOLOGY METHOD 04/03/2025 10:54 AM [facility] LAB MPV 10.1 7.0 - 11.0 FL LAB HEMETOLOGY METHOD 04/03/2025 10:54 AM [facility] LAB NRBC 0.0 <1.0 % LAB HEMETOLOGY METHOD 04/03/2025 10:54 AM [facility] LAB NRBC Absolute 0.00 <0.10 K/mcL LAB HEMETOLOGY METHOD 04/03/2025 10:54 AM [facility] Blood Venous blood specimen / Unknown Venipuncture / Unknown 04/03/2025 6:11 AM EDT 04/03/2025 10:15 AM EDT us Smitha Mcbride MD LAB BLOOD ORDERABLES Fin al Result [facility] [address] [place] [address], [place] [phone] * Basic metabolic panel (04/03/2025 6:11 AM EDT) Pathologist [facility] Sodium 142 133 - 145 mmol/L LAB CHEMISTRY METHOD 04/03/2025 11:40 AM [facility] Potassium 3.9 3.5 - 5.5 mmol/L LAB CHEMISTRY METHOD 04/03/2025 11:40 AM [facility] Chloride 103 96 - 110 mmol/L LAB CHEMISTRY METHOD 04/03/2025 11:40 AM [facility] CO2 30 21 - 32 mmol/L LAB CHEMISTRY METHOD 04/03/2025 11:40 AM [facility] Anion Gap 9 3 - 11 LAB CHEMISTRY METHOD 04/03/2025 11:40 AM [facility] Glucose 93 70 - 100 mg/dL LAB CHEMISTRY METHOD 04/03/2025 11:40 AM [facility] BUN 8 5 - 25 mg/dL LAB CHEMISTRY METHOD 04/03/2025 11:40 AM [facility] Creatinine 0.75 0.70 - 1.30 mg/dL LAB CHEMISTRY METHOD 04/03/2025 11:40 AM [facility] LAB eGFR 93 >=60 mL/min/1. 73m2 LAB CHEMISTRY METHOD 04/03/2025 11:40 AM [facility] Comment:Calculation based on the Chronic Kidney Disease Epidemiology Collaboration (CKD-EPI) equation refit without adjustment for race. BUN/Creatinine Ratio 10.7 LAB CHEMISTRY METHOD 04/03/2025 11:40 AM [facility] Calcium 8.6 8.5 - 10.5 mg/dL LAB CHEMISTRY METHOD 04/03/2025 11:40 AM EDT [facility] Blood Venous blood specimen / Unknown Venipuncture / Unknown 04/03/2025 6:11 AM EDT 04/03/2025 10:15 AM EDT us Smitha Mcbride MD LAB BLOOD ORDERABLES Fin al Result [facility] [address] [place] [address], documented in this encounter Visit Diagnoses Diagnosis Rhabdomyolysis documented in this encounter Additional Health Concerns Assessment Noted Time PHQ-9 Depression Total Score: 0 01/17/20 25 8:47 AM EDT A fall risk assessment has been complete d for the patient 01/16/2025 8:47 AM EDT documented as of this encounter Care Teams Police Officer Relationship Specialty Start Date End Date Av Weathers PA [address] [place] [address] PCP - General Internal Medicine 12/12/20 documented as of this encounter
--- OUTSIDE RECORDS SUMMARY | 2025-08-03 09:37 | XMS_ITS | Encounter Summary ---
Author Organization [facility] Address [address] [place] [address] Care Team Providers Care Job Training Specialist Name Role Phone Av Weathers Primary Care Provider [phone] [phone] Encounter Details Date Type Department Care Team (Late st Contact Info) Description 03/17/[address] [facility] - Main Lab 299 [facility] [place] [address] Smitha Mcbride MD [address] [phone] Rhabdomyolysis Social History Tobacco Use Types Packs/Day [...] Associated Diagnosis Comments COMPLETE BLOOD COUNT Routine 03/20/2025 5:51 AM EDT Rhabdomyolysis BASIC METABOLIC PANEL Routine 03/20/2025 5:51 AM EDT Rhabdomyolysis documented in this encounter Results * (ABNORMAL) Complete blood count (03/20/2025 5:51 AM EDT) WBC 10.0 4.8 - 10.8 K/[facility] LAB HEMETOLOGY METHOD 03/20/2025 11:03 AM [facility] RBC 3.50(L) 4.50 - 5.50 M/mcL LAB HEMETOLOGY METHOD 03/20/2025 11:03 AM [facility] Hemoglobin 11.2(L) 13.5 - 17.5 g/dL LAB HEMETOLOGY METHOD 03/20/2025 11:03 AM [facility] LAB Hematocrit 34.8(L) 42.0 - 54.0 % LAB HEMETOLOGY METHOD 03/20/2025 11:03 AM [facility] MCV 99.4(H) 79.0 - 98.0 FL LAB HEMETOLOGY METHOD 03/20/2025 11:03 AM [facility] MCH 32.0 27.0 - 32.0 pcg LAB HEMETOLOGY METHOD 03/20/2025 11:03 AM [facility] MCHC 32.2 32.0 - 37.0 g/dL LAB HEMETOLOGY METHOD 03/20/2025 11:03 AM [facility] RDW 11.9 11.0 - 15.0 % LAB HEMETOLOGY METHOD 03/20/2025 11:03 AM [facility] Platelets 330 130 - 400 K/mcL LAB HEMETOLOGY METHOD 03/20/2025 11:03 AM [facility] MPV 10.2 7.0 - 11.0 FL LAB HEMETOLOGY METHOD 03/20/2025 11:03 AM [facility] NRBC 0.0 <1.0 % LAB HEMETOLOGY METHOD 03/20/2025 11:03 AM [facility] NRBC Absolute 0.00 <0.10 K/mcL LAB HEMETOLOGY METHOD 03/20/2025 11:03 AM [facility] Blood Venous blood specimen / Unknown Venipuncture / Unknown 03/20/2025 5:51 AM EDT 03/20/2025 10:45 AM EDT us Smitha Mcbride MD LAB BLOOD ORDERABLES Fin al Result [facility] [address] [place] [address], [place] [phone] * (ABNORMAL) Basic metabolic panel (03/20/2025 5:51 AM EDT) Pathologist [facility] Sodium 141 133 - 145 mmol/L LAB CHEMISTRY METHOD 03/20/2025 1:01 PM [facility] Potassium 4.0 3.5 - 5.5 mmol/L LAB CHEMISTRY METHOD 03/20/2025 1:01 PM [facility] Chloride 104 96 - 110 mmol/L LAB CHEMISTRY METHOD 03/20/2025 1:01 PM [facility] CO2 30 21 - 32 mmol/L LAB CHEMISTRY METHOD 03/20/2025 1:01 PM [facility] Anion Gap 7 3 - 11 LAB CHEMISTRY METHOD 03/20/2025 1:01 PM [facility] Glucose 115(H) 70 - 100 mg/dL LAB CHEMISTRY METHOD 03/20/2025 1:01 PM [facility] BUN 14 5 - 25 mg/dL LAB CHEMISTRY METHOD 03/20/2025 1:01 PM [facility] Creatinine 0.74 0.70 - 1.30 mg/dL LAB CHEMISTRY METHOD 03/20/2025 1:01 PM [facility] eGFR 93 >=60 mL/min/1. 73m2 LAB CHEMISTRY METHOD 03/20/2025 1:01 PM [facility] Comment:Calculation based on the Chronic Kidney Disease Epidemiology Collaboration (CKD-EPI) equation refit without adjustment for race. BUN/Creatinine Ratio 18.9 LAB CHEMISTRY METHOD 03/20/2025 1:01 PM EDT [facility] Calcium 8.6 8.5 - 10.5 mg/dL LAB CHEMISTRY METHOD 03/20/2025 1:01 PM EDT [facility] Blood Venous blood specimen / Unknown Venipuncture / Unknown 03/20/2025 5:51 AM EDT 03/20/2025 10:45 AM EDT us Smitha Mcbride MD LAB BLOOD ORDERABLES Fin al Result [facility] [address] [place] [address], documented in this encounter Visit Diagnoses Diagnosis Rhabdomyolysis documented in this encounter Additional Health Concerns Assessment Noted Time PHQ-9 Depression Total Score: 0 01/17/20 25 8:47 AM EDT A fall risk assessment has been complete d for the patient 01/16/2025 8:47 AM EDT documented as of this encounter Care Teams Job Training Specialist Relationship Specialty Start Date End Date Av Weathers PA [address] [place] [id number] PCP - General Internal Medicine 12/12/20 documented as of this encounter
--- OUTSIDE RECORDS SUMMARY | 2025-08-03 09:37 | XMS_ITS | Encounter Summary ---
Author Organization [facility] Address [address] [place] [address] Care Team Providers Care Loading Supervisor Name Role Phone Av Weathers Primary Care Provider [phone] [phone] Encounter Details Date Type Department Care Team (Late st Contact Info) Description 02/13/2025 Lab Requisition [facility] - Main Lab 299 [facility] [place] [address] Smitha Mcbride MD [address] [phone] Vitamin D deficiency, unspecified Social History Tobacco Use Types Packs/Day [...] your loved ones. For example, child development teacher or elderly care for an older [...] Diagnosis Comments VITAMIN D 25 HYDROXY Routine 02/13/2025 9:38 AM EDT Vitamin D deficiency, unspecified FOLATE Routine 02/13/2025 9:38 AM EDT Vitamin D deficiency, unspecified VITAMIN B12 Routine 02/13/2025 9:38 AM EDT Vitamin D deficiency, unspecified documented in this encounter Results * (ABNORMAL) Vitamin D 25 hydroxy (02/13/2025 9:38 AM EDT) Vit D, 25-Hydroxy 10.2(L) 30.0 - 80.0 ng/mL LAB CHEMISTRY METHOD 02/13/2025 2:53 PM EDT [facility] Blood Venous blood specimen / Unknown Venipuncture / Unknown 02/13/2025 9:38 AM EDT 02/13/2025 12:10 PM EDT Smitha Mcbride MD LAB BLOOD ORDERABLES Fin al Result Performing Organization Address City/[facility]/ZIP Co de Phone Number [facility] [address] [place] [address], [place] [phone] * (ABNORMAL) Folate (02/13/2025 9:38 AM EDT) [facility] Folate 19.0(H) 2.8 - 17.0 ng/ml LAB CHEMISTRY METHOD 02/13/2025 2:17 PM EDT [facility] Blood Venous blood specimen / Unknown Venipuncture / Unknown 02/13/2025 9:38 AM EDT 02/13/2025 12:10 PM EDT Smitha Mcbride MD LAB BLOOD ORDERABLES Fin al Result Performing Organization Address City/[facility]/ZIP Co de Phone Number [facility] [address] [place] [address], [place] [phone] * Vitamin B12 (02/13/2025 9:38 AM EDT) Pathologist [facility] Vitamin B-12 636 250 - 900 pcg/mL LAB CHEMISTRY METHOD 02/13/2025 2:17 PM EDT [facility] Blood Venous blood specimen / Unknown Venipuncture / Unknown 02/13/2025 9:38 AM EDT 02/13/2025 12:10 PM EDT Smitha Mcbride MD LAB BLOOD ORDERABLES Fin al Result [facility] [address] [place] [address], documented in this encounter Visit Diagnoses Diagnosis Vitamin D deficiency, unspecified documented in this encounter Additional Health Concerns Assessment Noted Time PHQ-9 Depression Total Score: 0 01/17/20 8:47 AM EDT A fall risk assessment has been complete d for the patient 01/16/2025 8:47 AM EDT documented as of this encounter Care Teams Loading Supervisor Relationship Specialty Start Date End Date Av Weathers PA [address] [place] [id number] PCP - General Internal Medicine 12/12/20 documented as of this encounter
--- OUTSIDE RECORDS SUMMARY | 2025-08-03 09:37 | XMS_ITS | Encounter Summary ---
Author Organization [facility] Address [address] [place] [address] Care Team Providers Care Emissions Testing And Repair Technician Name Role Phone Av Weathers Primary Care Provider [phone] [phone] Encounter Details Date Type Department Care Team (Late st Contact Info) Description 02/25/2025 Lab Requisition [facility] - Main Lab 299 [facility] [place] [address] Smitha Mcbride MD [address] [phone] Elevated white blood cell count, unspecified Social History Tobacco Use Types Packs/Day [...] for your loved ones. For example, children's attendant or elderly care for an older adult? [...] Associated Diagnosis Comments COMPLETE BLOOD COUNT Routine 02/25/2025 5:47 AM EDT Elevated white blood cell count, unspecified documented in this encounter Results * (ABNORMAL) Complete blood count (02/25/2025 5:47 AM EDT) [facility] Signature WBC 12.5(H) 4.8 - 10.8 K/[facility] LAB HEMETOLOGY METHOD 02/25/2025 11:50 AM EDT [facility] LAB RBC 3.90(L) 4.50 - 5.50 M/mcL LAB HEMETOLOGY METHOD 02/25/2025 11:50 AM [facility] LAB Hemoglobin 12.6(L) 13.5 - 17.5 g/dL LAB HEMETOLOGY METHOD 02/25/2025 11:50 AM [facility] LAB Hematocrit 38.4(L) 42.0 - 54.0 % LAB HEMETOLOGY METHOD 02/25/2025 11:50 AM [facility] LAB MCV 98.2(H) 79.0 - 98.0 FL LAB HEMETOLOGY METHOD 02/25/2025 11:50 AM [facility] LAB MCH 32.2(H) 27.0 - 32.0 pcg LAB HEMETOLOGY METHOD 02/25/2025 11:50 AM [facility] LAB MCHC 32.8 32.0 - 37.0 g/dL LAB HEMETOLOGY METHOD 02/25/2025 11:50 AM [facility] LAB RDW 12.0 11.0 - 15.0 % LAB HEMETOLOGY METHOD 02/25/2025 11:50 AM [facility] LAB Platelets 368 130 - 400 K/mcL LAB HEMETOLOGY METHOD 02/25/2025 11:50 AM [facility] LAB MPV 10.1 7.0 - 11.0 FL LAB HEMETOLOGY METHOD 02/25/2025 11:50 AM [facility] LAB NRBC 0.0 <1.0 % LAB HEMETOLOGY METHOD 02/25/2025 11:50 AM [facility] LAB NRBC Absolute 0.00 <0.10 K/mcL LAB HEMETOLOGY METHOD 02/25/2025 11:50 AM [facility] LAB Blood Venous blood specimen / Unknown Venipuncture / Unknown 02/25/2025 5:47 AM EDT 02/25/2025 11:30 AM EDT us Smitha Mcbride MD LAB BLOOD ORDERABLES Fin al Result [facility] ([facility] LAB [address] [place] [address], documented in this encounter Visit Diagnoses Diagnosis Elevated white blood cell count, unspecified documented in this encounter Additional Health Concerns Assessment Noted Time PHQ-9 Depression Total Score: 0 01/17/20 8:47 AM EDT A fall risk assessment has been complete d for the patient 01/16/2025 8:47 AM EDT documented as of this encounter Care Teams Emissions Testing And Repair Technician Relationship Specialty Start Date End Date Av Weathers PA [address] [place] [address] PCP - General Internal Medicine 12/12/20 documented as of this encounter
--- OUTSIDE RECORDS SUMMARY | 2025-08-03 09:37 | XMS_ITS | Encounter Summary ---
Author Organization [facility] Address [address] [place] [address] Care Team Providers Care Arts And Crafts Instructor Name Role Phone Av Weathers Primary Care Provider [phone] [phone] Encounter Details Date Type Department Care Team (Late st Contact Info) Description 03/02/2025 Lab Requisition [facility] - Main Lab 299 [facility] [place] [address] Smitha Mcbride MD [address] [phone] Rhabdomyolysis Social History Tobacco Use Types Packs/Day [...] your loved ones. For example, child care lead teacher or elderly care for an older [...] Complete blood count (03/03/2025 5:19 AM EDT) WBC 11.0(H) 4.8 - 10.8 K/mcL LAB HEMETOLOGY METHOD 03/03/2025 9:42 AM [facility] LAB RBC 3.90(L) 4.50 - 5.50 M/mcL LAB HEMETOLOGY METHOD 03/03/2025 9:42 AM [facility] LAB Hemoglobin 12.6(L) 13.5 - 17.5 g/dL LAB HEMETOLOGY METHOD 03/03/2025 9:42 AM [facility] LAB Hematocrit 38.5(L) 42.0 - 54.0 % LAB HEMETOLOGY METHOD 03/03/2025 9:42 AM [facility] LAB MCV 99.5(H) 79.0 - 98.0 FL LAB HEMETOLOGY METHOD 03/03/2025 9:42 AM [facility] LAB MCH 32.6(H) 27.0 - 32.0 pcg LAB HEMETOLOGY METHOD 03/03/2025 9:42 AM [facility] LAB MCHC 32.7 32.0 - 37.0 g/dL LAB HEMETOLOGY METHOD 03/03/2025 9:42 AM [facility] LAB RDW 11.9 11.0 - 15.0 % LAB HEMETOLOGY METHOD 03/03/2025 9:42 AM [facility] LAB Platelets 312 130 - 400 K/mcL LAB HEMETOLOGY METHOD 03/03/2025 9:42 AM [facility] LAB MPV 10.2 7.0 - 11.0 FL LAB HEMETOLOGY METHOD 03/03/2025 9:42 AM [facility] LAB NRBC 0.0 <1.0 % LAB HEMETOLOGY METHOD 03/03/2025 9:42 AM [facility] LAB NRBC Absolute 0.00 <0.10 K/mcL LAB HEMETOLOGY METHOD 03/03/2025 9:42 AM [facility] LAB Blood Venous blood specimen / Unknown Venipuncture / Unknown 03/03/2025 5:19 AM EDT 03/03/2025 9:31 AM EDT us Smitha Mcbride MD LAB BLOOD ORDERABLES Fin al Result [facility] LAB [address] [place] [address], * (ABNORMAL) Basic metabolic panel (03/03/2025 5:19 AM EDT) Pathologist [facility] Sodium 137 133 - 145 mmol/L LAB CHEMISTRY METHOD 03/03/2025 10:41 AM [facility] LAB Potassium 4.2 3.5 - 5.5 mmol/L LAB CHEMISTRY METHOD 03/03/2025 10:41 AM [facility] LAB Chloride 104 96 - 110 mmol/L LAB CHEMISTRY METHOD 03/03/2025 10:41 AM [facility] LAB CO2 26 21 - 32 mmol/L LAB CHEMISTRY METHOD 03/03/2025 10:41 AM [facility] LAB Anion Gap 7 3 - 11 LAB CHEMISTRY METHOD 03/03/2025 10:41 AM [facility] LAB Glucose 123(H) 70 - 100 mg/dL LAB CHEMISTRY METHOD 03/03/2025 10:41 AM [facility] LAB BUN 24 5 - 25 mg/dL LAB CHEMISTRY METHOD 03/03/2025 10:41 AM [facility] LAB Creatinine 0.73 0.70 - 1.30 mg/dL LAB CHEMISTRY METHOD 03/03/2025 10:41 AM [facility] LAB eGFR 94 >=60 mL/min/1. 73m2 LAB CHEMISTRY METHOD 03/03/2025 10:41 AM [facility] LAB Comment:Calculation based on the Chronic Kidney Disease Epidemiology Collaboration (CKD-EPI) equation refit without adjustment for race. BUN/Creatinine Ratio 32.9 LAB CHEMISTRY METHOD 03/03/2025 10:41 AM EDT [facility] LAB Calcium 9.5 8.5 - 10.5 mg/dL LAB CHEMISTRY METHOD 03/03/2025 10:41 AM EDT [facility] LAB Blood Venous blood specimen / Unknown Venipuncture / Unknown 03/03/2025 5:19 AM EDT 03/03/2025 9:31 AM EDT us Smitha Mcbride MD LAB BLOOD ORDERABLES Fin al Result [facility] LAB [address] [place] [address], documented in this encounter Visit Diagnoses Diagnosis Rhabdomyolysis documented in this encounter Additional Health Concerns Assessment Noted Time PHQ-9 Depression Total Score: 0 01/17/20 25 8:47 AM EDT A fall risk assessment has been complete d for the patient 01/16/2025 8:47 AM EDT documented as of this encounter Care Teams Arts And Crafts Instructor Relationship Specialty Start Date End Date Av Weathers PA [address] [place] [id number] PCP - General Internal Medicine 12/12/20 documented as of this encounter
--- OUTSIDE RECORDS SUMMARY | 2025-08-03 09:37 | XMS_ITS | Encounter Summary ---
Author Organization [facility] Address [address] [place] [address] Care Team Providers Care Him Specialist Name Role Phone Av Weathers Primary Care Provider [phone] [phone] Encounter Details Date Type Department Care Team (Late st Contact Info) Description 06/10/2025 Lab Requisition [facility] - Main Lab 299 [facility] [place] [address] Smitha Mcbride MD [address] [phone] Rhabdomyolysis; Impaired fasting glucose Social History Tobacco Use Types Packs/Day Years [...] your loved ones. For example, child care education coordinator or elderly care for an older adult? [...] Associated Diagnosis Comments COMPLETE BLOOD COUNT Routine 06/12/2025 9:45 AM EDT Rhabdomyolysis Impaired fasting glucose HEMOGLOBIN A1C Routine 06/12/2025 9:45 AM EDT Rhabdomyolysis Impaired fasting glucose BASIC METABOLIC PANEL Routine 06/12/2025 9:45 AM EDT Rhabdomyolysis Impaired fasting glucose documented in this encounter Results * Hemoglobin A1c (06/12/2025 9:45 AM EDT) [facility] Hemoglobin A1C 6.2 <6.5 % LAB CHEMISTRY METHOD 06/13/2025 8:35 AM EDT [facility] LAB Mean Bld Glu Estim. 131 mg/dL LAB CHEMISTRY METHOD 06/13/2025 8:35 AM EDT [facility] LAB Blood Venous blood specimen / Unknown Venipuncture / Unknown 06/12/2025 9:45 AM EDT 06/12/2025 12:06 PM EDT us Smitha Mcbride MD LAB BLOOD ORDERABLES Fin al Result [facility] LAB [address] [place] [address], [place] [phone] * (ABNORMAL) Complete blood count (06/12/2025 9:45 AM EDT) [facility] WBC 7.8 4.8 - 10.8 K/mcL LAB HEMETOLOGY METHOD 06/12/2025 1:10 PM EDT [facility] LAB RBC 4.20(L) 4.50 - 5.50 M/mcL LAB HEMETOLOGY METHOD 06/12/2025 1:10 PM EDT [facility] LAB Hemoglobin 13.1(L) 13.5 - 17.5 g/dL LAB HEMETOLOGY METHOD 06/12/2025 1:10 PM EDT [facility] LAB Hematocrit 39.3(L) 42.0 - 54.0 % LAB HEMETOLOGY METHOD 06/12/2025 1:10 PM EDT [facility] LAB MCV 93.1 79.0 - 98.0 FL LAB HEMETOLOGY METHOD 06/12/2025 1:10 PM EDT [facility] LAB MCH 31.0 27.0 - 32.0 pcg LAB HEMETOLOGY METHOD 06/12/2025 1:10 PM EDT [facility] LAB MCHC 33.3 32.0 - 37.0 g/dL LAB HEMETOLOGY METHOD 06/12/2025 1:10 PM EDT [facility] LAB RDW 12.2 11.0 - 15.0 % LAB HEMETOLOGY METHOD 06/12/2025 1:10 PM EDT [facility] LAB Platelets 290 130 - 400 K/mcL LAB HEMETOLOGY METHOD 06/12/2025 1:10 PM EDT [facility] LAB MPV 9.9 7.0 - 11.0 FL LAB HEMETOLOGY METHOD 06/12/2025 1:10 PM EDT [facility] LAB NRBC 0.0 <1.0 % LAB HEMETOLOGY METHOD 06/12/2025 1:10 PM EDT [facility] LAB NRBC Absolute 0.00 <0.10 K/mcL LAB HEMETOLOGY METHOD 06/12/2025 1:10 PM EDT [facility] LAB Blood Venous blood specimen / Unknown Venipuncture / Unknown 06/12/2025 9:45 AM EDT 06/12/2025 12:06 PM EDT Smitha Mcbride MD LAB BLOOD ORDERABLES Fin al Result [facility] LAB [address] [place] [address], * (ABNORMAL) Basic metabolic panel (06/12/2025 9:45 AM EDT) Sodium 139 133 - 145 mmol/L LAB CHEMISTRY METHOD 06/12/2025 2:57 PM EDT [facility] LAB Potassium 4.0 3.5 - 5.5 mmol/L LAB CHEMISTRY METHOD 06/12/2025 2:57 PM EDT [facility] LAB Chloride 105 96 - 110 mmol/L LAB CHEMISTRY METHOD 06/12/2025 2:57 PM EDT [facility] LAB CO2 28 21 - 32 mmol/L LAB CHEMISTRY METHOD 06/12/2025 2:57 PM EDT [facility] LAB Anion Gap 6 3 - 11 LAB CHEMISTRY METHOD 06/12/2025 2:57 PM EDT [facility] LAB Glucose 121(H) 70 - 100 mg/dL LAB CHEMISTRY METHOD 06/12/2025 2:57 PM EDT [facility] LAB BUN 16 5 - 25 mg/dL LAB CHEMISTRY METHOD 06/12/2025 2:57 PM EDT [facility] LAB Creatinine 0.80 0.70 - 1.30 mg/dL LAB CHEMISTRY METHOD 06/12/2025 2:57 PM EDT [facility] LAB eGFR 91 >=60 mL/min/1. 73m2 LAB CHEMISTRY METHOD 06/12/2025 2:57 PM EDT [facility] LAB Comment:Calculation based on the Chronic Kidney Disease Epidemiology Collaboration (CKD-EPI) equation refit without adjustment for race. BUN/Creatinine Ratio 20.0 LAB CHEMISTRY METHOD 06/12/2025 2:57 PM EDT [facility] LAB Calcium 9.0 8.5 - 10.5 mg/dL LAB CHEMISTRY METHOD 06/12/2025 2:57 PM T [facility] LAB Blood Venous blood specimen / Unknown Venipuncture / Unknown 06/12/2025 9:45 AM EDT 06/12/2025 12:06 PM EDT us Smitha Mcbride MD LAB BLOOD ORDERABLES Fin al Result [facility] LAB [address] [place] [address], documented in this encounter Visit Diagnoses Diagnosis Rhabdomyolysis Impaired fasting glucose documented in this encounter Additional Health Concerns Assessment Noted Time PHQ-9 Depression Total Score: 0 01/17/20 8:47 AM EDT A fall risk assessment has been complete d for the patient 01/16/2025 8:47 AM EDT documented as of this encounter Care Teams Him Specialist Relationship Specialty Start Date End Date Av Weathers PA [address] [place] [address] PCP - General Internal Medicine 12/12/20 documented as of this encounter
--- OUTSIDE RECORDS SUMMARY | 2025-08-03 09:37 | XMS_ITS | Encounter Summary ---
Author Organization [facility] Address [address] [place] [address] Care Team Providers Care Starch And Prosize Mixer Name Role Phone Av Weathers Primary Care Provider +1 [phone] Encounter Details Date Type Department Care Team (Late st Contact Info) Description 02/06/2025 Lab Requisition [facility] - Main Lab 299 [facility] [place] [address] Smitha Mcbride MD [address] [phone] Unspecified atrial fibrillation (CMS/HCC V24, CMS/HCC V28) Social History Tobacco Use Types Packs/Day Years [...] Associated Diagnosis Comments COMPLETE BLOOD COUNT Routine 02/06/2025 8:06 AM EDT Unspecified atrial fibrillation (CMS/HCC V24, CMS/HCC V28) COMPREHENSIVE METABOLIC PANEL Routine 02/06/2025 8:06 AM EDT Unspecified atrial fibrillation (CMS/HCC V24, CMS/HCC V28) documented in this encounter Results * (ABNORMAL) Comprehensive metabolic panel (02/06/2025 8:06 AM EDT) Sodium 139 133 - 145 mmol/L LAB CHEMISTRY METHOD 02/06/2025 2:39 PM [facility] LAB Potassium 3.9 3.5 - 5.5 mmol/L LAB CHEMISTRY METHOD 02/06/2025 2:39 PM [facility] LAB Chloride 102 96 - 110 mmol/L LAB CHEMISTRY METHOD 02/06/2025 2:39 PM [facility] LAB CO2 29 21 - 32 mmol/L LAB CHEMISTRY METHOD 02/06/2025 2:39 PM [facility] LAB Anion Gap 8 3 - 11 LAB CHEMISTRY METHOD 02/06/2025 2:39 PM [facility] LAB Glucose 105(H) 70 - 100 mg/dL LAB CHEMISTRY METHOD 02/06/2025 2:39 PM [facility] LAB BUN 12 5 - 25 mg/dL LAB CHEMISTRY METHOD 02/06/2025 2:39 PM [facility] LAB Creatinine 0.60(L) 0.70 - 1.30 mg/dL LAB CHEMISTRY METHOD 02/06/2025 2:39 PM [facility] LAB eGFR 99 >=60 mL/min/1. 73m2 LAB CHEMISTRY METHOD 02/06/2025 2:39 PM [facility] LAB Comment:Calculation based on the Chronic Kidney Disease Epidemiology Collaboration (CKD-EPI) equation refit without adjustment for race. BUN/Creatinine Ratio 20.0 LAB CHEMISTRY METHOD 02/06/2025 2:39 PM [facility] LAB Calcium 8.6 8.5 - 10.5 mg/dL LAB CHEMISTRY METHOD 02/06/2025 2:39 PM [facility] LAB AST (SGOT) 55(H) 10 - 42 unit/L LAB CHEMISTRY METHOD 02/06/2025 2:39 PM [facility] LAB ALT (SGPT) 62(H) 10 - 60 unit/L LAB CHEMISTRY METHOD 02/06/2025 2:39 PM EDT [facility] LAB Alkaline Phosphatase 88 42 - 121 unit/L LAB CHEMISTRY METHOD 02/06/2025 2:39 PM EDT [facility] LAB Total Protein 6.1 6.0 - 8.0 g/dL LAB CHEMISTRY METHOD 02/06/2025 2:39 PM EDT [facility] LAB Albumin 2.8(L) 3.2 - 5.0 g/dL LAB CHEMISTRY METHOD 02/06/2025 2:39 PM EDT [facility] LAB Total Bilirubin 0.5 0.0 - 1.4 mg/dL LAB CHEMISTRY METHOD 02/06/2025 2:39 PM EDT [facility] LAB Blood Venous blood specimen / Unknown Venipuncture / Unknown 02/06/2025 8:06 AM EDT 02/06/2025 12:46 PM EDT Smitha Mcbride MD LAB BLOOD ORDERABLES Fin al Result [facility] LAB [address] [place] [address], * (ABNORMAL) Complete blood count (02/06/2025 8:06 AM EDT) WBC 9.5 4.8 - 10.8 K/[facility] LAB HEMETOLOGY METHOD 02/06/2025 2:15 PM EDT [facility] LAB RBC 4.00(L) 4.50 - 5.50 M/[facility] LAB HEMETOLOGY METHOD 02/06/2025 2:15 PM EDT [facility] LAB Hemoglobin 13.3(L) 13.5 - 17.5 g/dL LAB HEMETOLOGY METHOD 02/06/2025 2:15 PM EDT [facility] LAB Hematocrit 39.9(L) 42.0 - 54.0 % LAB HEMETOLOGY METHOD 02/06/2025 2:15 PM EDT [facility] LAB MCV 99.0(H) 79.0 - 98.0 FL LAB HEMETOLOGY METHOD 02/06/2025 2:15 PM EDT [facility] LAB MCH 33.0(H) 27.0 - 32.0 pcg LAB HEMETOLOGY METHOD 02/06/2025 2:15 PM EDT [facility] LAB MCHC 33.3 32.0 - 37.0 g/dL LAB HEMETOLOGY METHOD 02/06/2025 2:15 PM EDT [facility] LAB RDW 12.7 11.0 - 15.0 % LAB HEMETOLOGY METHOD 02/06/2025 2:15 PM EDT [facility] LAB Platelets 262 130 - 400 K/mcL LAB HEMETOLOGY METHOD 02/06/2025 2:15 PM EDT [facility] LAB MPV 10.4 7.0 - 11.0 FL LAB HEMETOLOGY METHOD 02/06/2025 2:15 PM EDT [facility] LAB NRBC 0.0 <1.0 % LAB HEMETOLOGY METHOD 02/06/2025 2:15 PM EDT [facility] LAB NRBC Absolute 0.00 <0.10 K/mcL LAB HEMETOLOGY METHOD 02/06/2025 2:15 PM EDT [facility] LAB Blood Venous blood specimen / Unknown Venipuncture / Unknown 02/06/2025 8:06 AM EDT 02/06/2025 12:46 PM EDT us Smitha Mcbride MD LAB BLOOD ORDERABLES Fin al Result [facility] LAB [address] [place] [address], documented in this encounter Visit Diagnoses Diagnosis Unspecified atrial fibrillation (CMS/HCC V24, CMS/HCC V28) documented in this encounter Additional Health Concerns Assessment Noted Time PHQ-9 Depression Total Score: 0 01/17/20 8:47 AM EDT A fall risk assessment has been complete d for the patient 01/16/2025 8:47 AM EDT documented as of this encounter Care Teams Starch And Prosize Mixer Relationship Specialty Start Date End Date Av Weathers PA [address] [place] [address] PCP - General Internal Medicine 12/12/20 documented as of this encounter
--- OUTSIDE RECORDS SUMMARY | 2025-08-03 09:37 | XMS_ITS | Encounter Summary ---
Author Organization [facility] Address [address] [place] [address] Care Team Providers Care Electrical Accessories Ii Assembler Name Role Phone Av Weathers Primary Care Provider [phone] [phone] Encounter Details Date Type Department Care Team (Late st Contact Info) Description 03/10/2025 Lab Requisition [facility] - Main Lab 299 [facility] [place] [address] Smitha Mcbride MD [address] [phone] Rhabdomyolysis Social History Tobacco Use Types Packs/Day [...] for your loved ones. For example, child support case officer or elderly care for an older adult? [...] Associated Diagnosis Comments COMPLETE BLOOD COUNT Routine 03/13/2025 6:21 AM EDT Rhabdomyolysis BASIC METABOLIC PANEL Routine 03/13/2025 6:21 AM EDT Rhabdomyolysis documented in this encounter Results * (ABNORMAL) Complete blood count (03/13/2025 6:21 AM EDT) WBC 9.0 4.8 - 10.8 K/[facility] LAB HEMETOLOGY METHOD 03/13/2025 1:11 PM [facility] LAB RBC 3.80(L) 4.50 - 5.50 M/mcL LAB HEMETOLOGY METHOD 03/13/2025 1:11 PM [facility] LAB Hemoglobin 12.2(L) 13.5 - 17.5 g/dL LAB HEMETOLOGY METHOD 03/13/2025 1:11 PM [facility] LAB Hematocrit 37.3(L) 42.0 - 54.0 % LAB HEMETOLOGY METHOD 03/13/2025 1:11 PM [facility] LAB MCV 97.4 79.0 - 98.0 FL LAB HEMETOLOGY METHOD 03/13/2025 1:11 PM [facility] LAB MCH 31.9 27.0 - 32.0 pcg LAB HEMETOLOGY METHOD 03/13/2025 1:11 PM [facility] LAB MCHC 32.7 32.0 - 37.0 g/dL LAB HEMETOLOGY METHOD 03/13/2025 1:11 PM [facility] LAB RDW 11.9 11.0 - 15.0 % LAB HEMETOLOGY METHOD 03/13/2025 1:11 PM [facility] LAB Platelets 334 130 - 400 K/mcL LAB HEMETOLOGY METHOD 03/13/2025 1:11 PM [facility] LAB MPV 10.2 7.0 - 11.0 FL LAB HEMETOLOGY METHOD 03/13/2025 1:11 PM [facility] LAB NRBC 0.0 <1.0 % LAB HEMETOLOGY METHOD 03/13/2025 1:11 PM [facility] LAB NRBC Absolute 0.00 <0.10 K/mcL LAB HEMETOLOGY METHOD 03/13/2025 1:11 PM [facility] LAB Blood Venous blood specimen / Unknown Venipuncture / Unknown 03/13/2025 6:21 AM EDT 03/13/2025 10:29 AM EDT Smitha Mcbride MD LAB BLOOD ORDERABLES Fin al Result [facility] [address] [place] [address], [place] [phone] * (ABNORMAL) Basic metabolic panel (03/13/2025 6:21 AM EDT) Sodium 137 133 - 145 mmol/L LAB CHEMISTRY METHOD 03/13/2025 11:52 AM [facility] LAB Potassium 4.2 3.5 - 5.5 mmol/L LAB CHEMISTRY METHOD 03/13/2025 11:52 AM [facility] LAB Chloride 103 96 - 110 mmol/L LAB CHEMISTRY METHOD 03/13/2025 11:52 AM [facility] LAB CO2 29 21 - 32 mmol/L LAB CHEMISTRY METHOD 03/13/2025 11:52 AM [facility] LAB Anion Gap 5 3 - 11 LAB CHEMISTRY METHOD 03/13/2025 11:52 AM [facility] LAB Glucose 109(H) 70 - 100 mg/dL LAB CHEMISTRY METHOD 03/13/2025 11:52 AM [facility] LAB BUN 13 5 - 25 mg/dL LAB CHEMISTRY METHOD 03/13/2025 11:52 AM [facility] LAB Creatinine 0.66(L) 0.70 - 1.30 mg/dL LAB CHEMISTRY METHOD 03/13/2025 11:52 AM [facility] LAB eGFR 97 >=60 mL/min/1. 73m2 LAB CHEMISTRY METHOD 03/13/2025 11:52 AM [facility] LAB Comment:Calculation based on the Chronic Kidney Disease Epidemiology Collaboration (CKD-EPI) equation refit without adjustment for race. BUN/Creatinine Ratio 19.7 LAB CHEMISTRY METHOD 03/13/2025 11:52 AM EDT [facility] LAB Calcium 9.3 8.5 - 10.5 mg/dL LAB CHEMISTRY METHOD 03/13/2025 11:52 AM EDT [facility] LAB Blood Venous blood specimen / Unknown Venipuncture / Unknown 03/13/2025 6:21 AM EDT 03/13/2025 10:30 AM EDT us Smitha Mcbride MD LAB BLOOD ORDERABLES Fin al Result [facility] [address] [place] [address], documented in this encounter Visit Diagnoses Diagnosis Rhabdomyolysis documented in this encounter Additional Health Concerns Assessment Noted Time PHQ-9 Depression Total Score: 0 01/17/20 25 8:47 AM EDT A fall risk assessment has been complete d for the patient 01/16/2025 8:47 AM EDT documented as of this encounter Care Teams Electrical Accessories Ii Assembler Relationship Specialty Start Date End Date Av Weathers PA [address] [place] [id number] PCP - General Internal Medicine 12/12/20 documented as of this encounter
--- OUTSIDE RECORDS SUMMARY | 2025-08-03 09:37 | XMS_ITS | Encounter Summary ---
Author Organization [facility] Address [address] [place] [address] Care Team Providers Care Circulation Assistant Name Role Phone Av Weathers Primary Care Provider [phone] [phone] Encounter Details Date Type Department Care Team (Late st Contact Info) Description 06/14/2025 Lab Requisition [facility] - Main Lab 299 [facility] [place] [phone] Smitha Mcbride MD [address] [id number] Unspecified atrial fibrillation (CMS/HCC V24, CMS/HCC V28); Essential (primary) hypertension; Personal history of transient ischemic attack (TIA), and 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 residual deficits Social History Tobacco Use Types Packs/Day Years [...] care for your loved ones. For example, home child care provider or elderly care for an older adult? [...] Associated Diagnosis Comments COMPLETE BLOOD COUNT Routine 06/14/2025 6:47 AM EDT Unspecified atrial fibrillation (CMS/HCC V24, CMS/HCC V28) Essential (primary) hypertension Personal history of transient ischemic attack (TIA), and 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 residual deficits DIGOXIN LEVEL Routine 06/14/2025 6:47 AM EDT Unspecified atrial fibrillation (CMS/HCC V24, CMS/HCC V28) Essential (primary) hypertension Personal history of transient ischemic attack (TIA), and 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 residual deficits COMPREHENSIVE METABOLIC PANEL Routine 06/14/2025 6:47 AM EDT Unspecified atrial fibrillation (CMS/HCC V24, CMS/HCC V28) Essential (primary) hypertension Personal history of transient ischemic attack (TIA), and 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 residual deficits documented in this encounter Results * Digoxin level (06/14/2025 6:47 AM EDT) Pathologist [facility] Digoxin Lvl 0.8 0.5 - 2.0 ng/mL LAB CHEMISTRY METHOD 06/14/2025 11:00 AM EDT [facility] Comment:Results verified by repeat testing Blood Venous blood specimen / Unknown Venipuncture / Unknown 06/14/2025 6:47 AM EDT 06/14/2025 9:12 AM EDT us Smitha Mcbride MD LAB BLOOD ORDERABLES Fin al Result [facility] [address] [place] [address], * (ABNORMAL) Comprehensive metabolic panel (06/14/2025 6:47 AM EDT) Pathologist [facility] Sodium 138 133 - 145 mmol/L LAB CHEMISTRY METHOD 06/14/2025 10:17 AM EDT [facility] Potassium 3.9 3.5 - 5.5 mmol/L LAB CHEMISTRY METHOD 06/14/2025 10:17 AM EDT [facility] Chloride 103 96 - 110 mmol/L LAB CHEMISTRY METHOD 06/14/2025 10:17 AM EDT [facility] CO2 32 21 - 32 mmol/L LAB CHEMISTRY METHOD 06/14/2025 10:17 AM EDT [facility] Anion Gap 3 3 - 11 LAB CHEMISTRY METHOD 06/14/2025 10:17 AM [facility] Glucose 115(H) 70 - 100 mg/dL LAB CHEMISTRY METHOD 06/14/2025 10:17 AM [facility] BUN 18 5 - 25 mg/dL LAB CHEMISTRY METHOD 06/14/2025 10:17 AM [facility] Creatinine 0.87 0.70 - 1.30 mg/dL LAB CHEMISTRY METHOD 06/14/2025 10:17 AM [facility] eGFR 89 >=60 mL/min/1. 73m2 LAB CHEMISTRY METHOD 06/14/2025 10:17 AM [facility] Comment:Calculation based on the Chronic Kidney Disease Epidemiology Collaboration (CKD-EPI) equation refit without adjustment for race. BUN/Creatinine Ratio 20.7 LAB CHEMISTRY METHOD 06/14/2025 10:17 AM [facility] Calcium 9.2 8.5 - 10.5 mg/dL LAB CHEMISTRY METHOD 06/14/2025 10:17 AM [facility] AST (SGOT) 17 10 - 42 unit/L LAB CHEMISTRY METHOD 06/14/2025 10:17 AM [facility] ALT (SGPT) 19 10 - 60 unit/L LAB CHEMISTRY METHOD 06/14/2025 10:17 AM [facility] Alkaline Phosphatase 82 42 - 121 unit/L LAB CHEMISTRY METHOD 06/14/2025 10:17 AM [facility] Total Protein 6.4 6.0 - 8.0 g/dL LAB CHEMISTRY METHOD 06/14/2025 10:17 AM [facility] Albumin 3.4 3.2 - 5.0 g/dL LAB CHEMISTRY METHOD 06/14/2025 10:17 AM [facility] Total Bilirubin 0.6 0.0 - 1.4 mg/dL LAB CHEMISTRY METHOD 06/14/2025 10:17 AM [facility] Blood Venous blood specimen / Unknown Venipuncture / Unknown 06/14/2025 6:47 AM EDT 06/14/2025 9:12 AM EDT Smitha Mcbride MD LAB BLOOD ORDERABLES Fin al Result [facility] [address] [place] [address], * (ABNORMAL) Complete blood count (06/14/2025 6:47 AM EDT) WBC 10.0 4.8 - 10.8 K/mcL LAB HEMETOLOGY METHOD 06/14/2025 9:39 AM [facility] RBC 4.20(L) 4.50 - 5.50 M/mcL LAB HEMETOLOGY METHOD 06/14/2025 9:39 AM [facility] Hemoglobin 12.7(L) 13.5 - 17.5 g/dL LAB HEMETOLOGY METHOD 06/14/2025 9:39 AM [facility] Hematocrit 39.3(L) 42.0 - 54.0 % LAB HEMETOLOGY METHOD 06/14/2025 9:39 AM [facility] MCV 93.8 79.0 - 98.0 FL LAB HEMETOLOGY METHOD 06/14/2025 9:39 AM [facility] MCH 30.3 27.0 - 32.0 pcg LAB HEMETOLOGY METHOD 06/14/2025 9:39 AM [facility] MCHC 32.3 32.0 - 37.0 g/dL LAB HEMETOLOGY METHOD 06/14/2025 9:39 AM [facility] RDW 12.1 11.0 - 15.0 % LAB HEMETOLOGY METHOD 06/14/2025 9:39 AM [facility] Platelets 286 130 - 400 K/mcL LAB HEMETOLOGY METHOD 06/14/2025 9:39 AM EDT [facility] MPV 9.7 7.0 - 11.0 FL LAB HEMETOLOGY METHOD 06/14/2025 9:39 AM EDT [facility] NRBC 0.0 <1.0 % LAB HEMETOLOGY METHOD 06/14/2025 9:39 AM EDT [facility] NRBC Absolute 0.00 <0.10 K/mcL LAB HEMETOLOGY METHOD 06/14/2025 9:39 AM EDT [facility] Blood Venous blood specimen / Unknown Venipuncture / Unknown 06/14/2025 6:47 AM EDT 06/14/2025 9:12 AM EDT us Smitha Mcbride MD LAB BLOOD ORDERABLES Fin al Result [facility] [address] [place] [address], documented in this encounter Visit Diagnoses Diagnosis Unspecified atrial fibrillation (CMS/HCC V24, CMS/HCC V28) Essential (primary) hypertension Unspecified essential hypertension Personal history of transient ischemic attack (TIA), and 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 residual deficits documented in this encounter Additional Health Concerns Assessment Noted Time PHQ-9 Depression Total Score: 0 01/17/20 25 8:47 AM EDT A fall risk assessment has been complete d for the patient 01/16/2025 8:47 AM EDT documented as of this encounter Care Teams Circulation Assistant Relationship Specialty Start Date End Date Av Weathers PA [address] [place] [id number] PCP - General Internal Medicine 12/12/20 documented as of this encounter
== END 2025-08-03 10:20 | disposition home or self-care (01) ==
LOC: HO.HUSH 08:45
PROVIDERS: PCP Physician Assistant Medical; Visit Provider Nurse Practitioner Family
DX: N39.0 Urinary tract infection, site not specified (principal); R33.9 Retention of urine, unspecified; N43.3 Hydrocele, unspecified; R97.20 Elevated prostate specific antigen [PSA]
CPT/HCPCS: 99214; G2211

== ENCOUNTER → 2025-08-03 08:45 | Outpatient (BNVA) | payer MEDICARE, SELFPAY | PROVIDERS: PCP Physician Assistant Medical; Visit Provider Nurse Practitioner Family | DX: N43.3 Hydrocele, unspecified (principal); R97.20 Elevated prostate specific antigen [PSA]; R33.9 Retention of urine, unspecified; N39.0 Urinary tract infection, site not specified | CPT/HCPCS: 51798; 55000; 99212 ==

== ENCOUNTER 2025-09-20 11:20 | Outpatient (AMB) | payer MEDICARE, SELFPAY ==
--- NOTE | 2025-09-20 11:22 | A.OFFVIS_ITS ---
Intake Visit Reasons: 1m/UA Intake Note: Patient is present for 1M F/U Urology Medication:TAMSULOSIN,FINASTERIDE Antibiotic Allergy:CEPHALEXIN Blood Thinner:ASPIRIN Artificial Glass Eye Maker Required: No Allergies cephalexin (From Keflex) Allergy (Severe, Verified 09/20/25 13:05) Angioedema Medication List - Last Reconciled 09/20/25 by AMAN Luis- aspirin 81 mg PO DAILY atorvastatin 40 mg PO DAILY carvedilol 12.5 mg PO BID digoxin 125 mcg PO DAILY diphenhydramine HCl (Banophen) 25 mg PO DAILY famotidine 20 mg PO DAILY finasteride 5 mg PO DAILY folic acid 1 mg PO DAILY furosemide 40 mg PO DAILY levofloxacin 500 mg PO Q24H 10 days losartan 25 mg PO DAILY prednisone 20 mg PO DAILY 5 days tamsulosin 0.4 mg PO BEDTIME HPI Comments Details: González is a pleasant 79-year-old male patient who is accompanied by vasyl is sister at today's office visit. [facility] He has a past medical history of hepatitis steatosis, cervical spondylosis, CVA, ETOH abuse, and atrial fibrillation. He presents to the office today for a follow-up of his hydrocele. Of note, patient underwent in office right-sided hydrocele drainage approximately 6 weeks ago at which time 300 cc of straw-colored fluid was removed. In discussion with the patient today he reports to be doing and feeling well. He denies having had any bothersome urological concerns. In assessment of the patient today it does appear hydrocele continues to be present however significantly decrease in size. We did discuss further treatment options and risks and benefits of these treatment options. He would like to proceed with surveillance monitoring. Patient also with a history of urinary retention with an indwelling Sol catheter in place. We did discuss urethral erosion. We did discussed further treatment options and risks and benefits of these treatment options. Patient and sister would like to proceed with suprapubic tube placement. All questions were answered. In review of patient's more it does appear he is compliant with finasteride and Flomax as prescribed. PSAs are as follows: 01/27 11.2, 08/29 1.8 In review of previous office notes it does appear patient has had a history of previous failed voiding trials. We did discuss potential causes of urinary retention as well as further treatment options and risks and benefits of these treatment options. All questions were answered. He otherwise offers no other issues or concerns at this time. 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) Alcohol intake: current Alcohol intake frequency: 0-2 drinks per day Alcohol type: beer Patient Tobacco Use Status: Never used Tobacco Advance Directives Date on File: 06/13/24 service: No Review of Systems Const Unobtainable due to mental condition Physical Exam Const General: cooperative, comfortable, no acute distress and well developed Nutritional Appearance: overweight Orientation/consciousness: oriented to person Limitations: wheelchair HEENT Head: Yes normal to inspection Eyes General: appearance normal, both eyes and all related structures Neck Neck: Yes normal visual inspection Chest Chest palpation & inspection: normal inspection of the chest Resp Effort & Inspection: normal respiratory effort and able to speak in complete sentences Cardio Rate: regular rate GI Inspection: Yes normal to inspection and Yes Abdominal panniculus present Other: as per HPI Skin General skin exam: no rashes or lesions noted Neuro General: oriented to person Extrem General: Yes normal to inspection Psych Appearance: well kempt Speech and movement: Clear speech present Affect: normal affect Attitude: cooperative Thought content: Normal thought content present Insight: Limited insight present (Psych) and Poor insight present (Psych) Judgement: Limited judgement present (Psych) and Poor judgement present (Psych) Assessment & Plan Assessment & Plan (1) Hypospadias, penile: Code(s): Q54.1 - Hypospadias, penile Category: Medical (2) Enlarged prostate: Code(s): N40.0 - Benign prostatic hyperplasia without lower urinary tract symptoms Category: Medical (3) Scrotal swelling: Code(s): N50.89 - Other specified disorders of the male genital organs Category: Medical (4) Recurrent UTI: Code(s): N39.0 - Urinary tract infection, site not specified Category: Medical (5) Bilateral hydrocele: Code(s): N43.3 - Hydrocele, unspecified Category: Medical (6) Urinary retention: Code(s): R33.9 - Retention of urine, unspecified Category: Medical Plan: Risks, benefits and alternatives to therapy were discussed. These include but are not limited to infection, bleeding, damage to local organs and tissues, need for further interventions. ? Anesthetic risks regarding cardiac arrhythmia, blood clots, and potential mortality were discussed. The patient understands the typical recovery time and the outpatient nature of the procedure. After consideration of these risks the patient gives full informed consent and they wish to move ahead with the procedure. Plan Most recent PSA results reviewed with the patient and his sister today. Hydrocele has significant decreased in size however does remain somewhat enlarged. We did discussed further treatment options of hydroceles as well as risks and benefits of these treatment options. We will continue with surveillance monitoring of hydrocele at this time We also discussed further treatment options of hypospadias in the setting of indwelling Sol catheter; risks and benefits of these interventions were discussed. All questions were answered. Will proceed with cystoscopy and suprapubic tube placement. Patient's sister's name is Letitia Renteria and can be reached at [phone] Follow-up per doctor's orders; or sooner with any issues, concerns, and or ques tions. Patient Instructions: The patient had an opportunity to ask questions regarding the treatment plan. All questions were answered. Physical exam, labs, and imaging were discussed and reviewed in detail. As well as risks, benefits, and discussion of treatment choices. No major barriers to understanding were identified. The patient expressed understanding and agreement with the above treatment plan. The patient was made aware they should contact our office by phone for worsening of their current condition, the appearance of new symptoms, or with any questions or concerns. Compliance is encouraged with any medications and follow up testing that is ordered. It is a privilege to be allowed the opportunity to participate in? your urological care.? Again, if you have any questions or concerns If you have any questions or concerns please do not hesitate to contact me. The office is [phone]. This note is constructed using voice recognition software. While every effort has been made to ensure accuracy dual rate supervisor errors may have been included. Yours sincerely, Aure Lara, SALES AGENT PROTECTIVE [employer]-BC Coding Level of Care Code Est Pt Level 4 (23657) Diagnoses Hypospadias, penile Q54.1 Enlarged prostate N40.0 Scrotal swelling N50.89 Recurrent UTI N39.0 Bilateral hydrocele N43.3 Urinary retention R33.9
--- OUTSIDE RECORDS SUMMARY | 2025-09-20 15:01 | XMS_ITS | Encounter Summary ---
Author Organization [facility] Address [address] [place] [address] Care Team Providers Care Bone Char Operator Name Role Phone Av Weathers Primary Care Provider [phone] [phone] Encounter Details Date Type Department Care Team (Late st Contact Info) Description 05/12/2025 Lab Requisition [facility] - Main Lab 299 [facility] [place] [address] Smitha Mcbride MD [address] [phone] Rhabdomyolysis Social History Tobacco Use Types Packs/Day [...] care for your loved ones. For example, manager child or elderly care for an older adult? [...] AM EDT) WBC 8.9 4.8 - 10.8 K/[facility] LAB HEMETOLOGY METHOD 05/15/2025 11:56 AM [facility] RBC 4.50 4.50 - 5.50 M/mcL LAB HEMETOLOGY METHOD 05/15/2025 11:56 AM [facility] Hemoglobin 14.1 13.5 - 17.5 g/dL LAB HEMETOLOGY METHOD 05/15/2025 11:56 AM [facility] Hematocrit 42.2 42.0 - 54.0 % LAB HEMETOLOGY METHOD 05/15/2025 11:56 AM [facility] MCV 93.4 79.0 - 98.0 FL LAB HEMETOLOGY METHOD 05/15/2025 11:56 AM [facility] MCH 31.2 27.0 - 32.0 pcg LAB HEMETOLOGY METHOD 05/15/2025 11:56 AM [facility] MCHC 33.4 32.0 - 37.0 g/dL LAB HEMETOLOGY METHOD 05/15/2025 11:56 AM [facility] RDW 12.0 11.0 - 15.0 % LAB HEMETOLOGY METHOD 05/15/2025 11:56 AM [facility] Platelets 310 130 - 400 K/mcL LAB HEMETOLOGY METHOD 05/15/2025 11:56 AM [facility] MPV 10.0 7.0 - 11.0 FL LAB HEMETOLOGY METHOD 05/15/2025 11:56 AM [facility] NRBC 0.0 <1.0 % LAB HEMETOLOGY METHOD 05/15/2025 11:56 AM [facility] NRBC Absolute 0.00 <0.10 K/mcL LAB HEMETOLOGY METHOD 05/15/2025 11:56 AM [facility] Blood Venous blood specimen / Unknown Venipuncture / Unknown 05/15/2025 8:53 AM EDT 05/15/2025 11:12 AM EDT us Smitha Mcbride MD LAB BLOOD ORDERABLES Fin al Result [facility] [address] [place] [address], [place] [phone] * (ABNORMAL) Basic metabolic panel (05/15/2025 8:53 AM EDT) Pathologist [facility] Sodium 138 133 - 145 mmol/L LAB CHEMISTRY METHOD 05/15/2025 12:10 PM [facility] Potassium 3.7 3.5 - 5.5 mmol/L LAB CHEMISTRY METHOD 05/15/2025 12:10 PM [facility] Chloride 102 96 - 110 mmol/L LAB CHEMISTRY METHOD 05/15/2025 12:10 PM [facility] CO2 29 21 - 32 mmol/L LAB CHEMISTRY METHOD 05/15/2025 12:10 PM [facility] Anion Gap 7 3 - 11 LAB CHEMISTRY METHOD 05/15/2025 12:10 PM [facility] Glucose 115(H) 70 - 100 mg/dL LAB CHEMISTRY METHOD 05/15/2025 12:10 PM [facility] BUN 13 5 - 25 mg/dL LAB CHEMISTRY METHOD 05/15/2025 12:10 PM [facility] Creatinine 0.79 0.70 - 1.30 mg/dL LAB CHEMISTRY METHOD 05/15/2025 12:10 PM [facility] eGFR 91 >=60 mL/min/1. 73m2 LAB CHEMISTRY METHOD 05/15/2025 12:10 PM [facility] Comment:Calculation based on the Chronic Kidney Disease Epidemiology Collaboration (CKD-EPI) equation refit without adjustment for race. BUN/Creatinine Ratio 16.5 LAB CHEMISTRY METHOD 05/15/2025 12:10 PM [facility] Calcium 9.4 8.5 - 10.5 mg/dL LAB CHEMISTRY METHOD 05/15/2025 12:[address] [facility] Blood Venous blood specimen / Unknown Venipuncture / Unknown 05/15/2025 8:53 AM EDT 05/15/2025 11:12 AM EDT us Smitha Mcbride MD LAB BLOOD ORDERABLES Fin al Result 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
--- OUTSIDE RECORDS SUMMARY | 2025-09-20 15:01 | XMS_ITS | Encounter Summary ---
Author Organization [facility] Address [address] [place] [address] Care Team Providers Care Office Manager Receptionist Name Role Phone Av Weathers Primary Care Provider [phone] [phone] Encounter Details Date Type Department Care Team (Late st Contact Info) Description 03/04/2025 Lab Requisition [facility] - Main Lab 299 [facility] [place] [address] Smitha Mcbride MD [address] [phone] Rhabdomyolysis Social History Tobacco Use Types Packs/Day [...] for your loved ones. For example, children's aide or elderly care for an older adult? [...] AM EDT) WBC 9.2 4.8 - 10.8 K/[facility] LAB HEMETOLOGY METHOD 03/04/2025 1:08 PM [facility] RBC 4.00(L) 4.50 - 5.50 M/mcL LAB HEMETOLOGY METHOD 03/04/2025 1:08 PM [facility] Hemoglobin 12.6(L) 13.5 - 17.5 g/dL LAB HEMETOLOGY METHOD 03/04/2025 1:08 PM [facility] Hematocrit 39.6(L) 42.0 - 54.0 % LAB HEMETOLOGY METHOD 03/04/2025 1:08 PM [facility] MCV 99.0(H) 79.0 - 98.0 FL LAB HEMETOLOGY METHOD 03/04/2025 1:08 PM [facility] MCH 31.5 27.0 - 32.0 pcg LAB HEMETOLOGY METHOD 03/04/2025 1:08 PM [facility] MCHC 31.8(L) 32.0 - 37.0 g/dL LAB HEMETOLOGY METHOD 03/04/2025 1:08 PM [facility] RDW 11.9 11.0 - 15.0 % LAB HEMETOLOGY METHOD 03/04/2025 1:08 PM [facility] Platelets 340 130 - 400 K/mcL LAB HEMETOLOGY METHOD 03/04/2025 1:08 PM [facility] MPV 10.2 7.0 - 11.0 FL LAB HEMETOLOGY METHOD 03/04/2025 1:08 PM [facility] NRBC 0.0 <1.0 % LAB HEMETOLOGY METHOD 03/04/2025 1:08 PM [facility] NRBC Absolute 0.00 <0.10 K/mcL LAB HEMETOLOGY METHOD 03/04/2025 1:08 PM [facility] Blood Venous blood specimen / Unknown Venipuncture / Unknown 03/04/2025 10:36 AM EDT 03/04/2025 11:34 AM EDT us Smitha Mcbride MD LAB BLOOD ORDERABLES Fin al Result [facility] [address] [place] [address], * (ABNORMAL) Basic metabolic panel (03/04/2025 10:36 AM EDT) [facility] Sodium 136 133 - 145 mmol/L LAB CHEMISTRY METHOD 03/04/2025 1:27 PM [facility] Potassium 4.3 3.5 - 5.5 mmol/L LAB CHEMISTRY METHOD 03/04/2025 1:27 PM [facility] Chloride 104 96 - 110 mmol/L LAB CHEMISTRY METHOD 03/04/2025 1:27 PM [facility] CO2 24 21 - 32 mmol/L LAB CHEMISTRY METHOD 03/04/2025 1:27 PM [facility] Anion Gap 8 3 - 11 LAB CHEMISTRY METHOD 03/04/2025 1:27 PM [facility] Glucose 114(H) 70 - 100 mg/dL LAB CHEMISTRY METHOD 03/04/2025 1:27 PM [facility] BUN 17 5 - 25 mg/dL LAB CHEMISTRY METHOD 03/04/2025 1:27 PM [facility] Creatinine 0.74 0.70 - 1.30 mg/dL LAB CHEMISTRY METHOD 03/04/2025 1:27 PM [facility] eGFR 93 >=60 mL/min/1. 73m2 LAB CHEMISTRY METHOD 03/04/2025 1:27 PM [facility] Comment:Calculation based on the Chronic Kidney Disease Epidemiology Collaboration (CKD-EPI) equation refit without adjustment for race. BUN/Creatinine Ratio 23.0 LAB CHEMISTRY METHOD 03/04/2025 1:27 PM EDT [facility] Calcium 9.4 8.5 - 10.5 mg/dL LAB CHEMISTRY METHOD 03/04/2025 1:27 PM EDT [facility] Blood Venous blood specimen / Unknown Venipuncture / Unknown 03/04/2025 10:36 AM EDT 03/04/2025 11:34 AM EDT us Smitha Mcbride MD LAB BLOOD ORDERABLES Fin al Result [facility] [address] [place] [address], documented in this encounter Visit Diagnoses Diagnosis Rhabdomyolysis documented in this encounter Additional Health Concerns Infection Onset Date Last Indicated Resolved Time 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
--- OUTSIDE RECORDS SUMMARY | 2025-09-20 15:01 | XMS_ITS | Encounter Summary ---
Author Organization [facility] Address [address] [place] [address] Care Team Providers Care Fire Technology Instructor Name Role Phone Av Weathers Primary Care Provider +1 [phone] Encounter Details Date Type Department Care Team (Late st Contact Info) Description 06/19/2025 Lab Requisition [facility] - Main Lab 299 [facility] [place] [address] Smitha Mcbride MD [address] [phone] Other exterminator termite (current) drug therapy Social History Tobacco Use [...] your loved ones. For example, early childhood or elderly care for an older adult? [...] LEVEL Routine 06/19/2025 8:56 AM EDT Other exterminator termite (current) drug therapy documented in this encounter Results * Digoxin level (06/19/2025 8:56 AM EDT) Digoxin Lvl 0.7 0.5 - 2.0 ng/mL LAB CHEMISTRY METHOD 06/19/2025 2:07 PM EDT [facility] Blood Venous blood specimen / Unknown Venipuncture / Unknown 06/19/2025 8:56 AM EDT 06/19/2025 11:28 AM EDT us Smitha Mcbride MD LAB BLOOD ORDERABLES Fin al Result [facility] ([facility]) [facility] [address] [place] [address], documented in this encounter Visit Diagnoses Diagnosis Other exterminator termite (current) drug therapy documented in this encounter Additional Health Concerns Infection Onset Date Last Indicated Resolved Time 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
--- OUTSIDE RECORDS SUMMARY | 2025-09-20 15:01 | XMS_ITS | Encounter Summary ---
Author Organization [facility] Address [address] [place] [address] Care Team Providers Care Senior It Auditor Name Role Phone Av Weathers Primary Care Provider [phone] [phone] Encounter Details Date Type Department Care Team (Late st Contact Info) Description 06/02/2025 Lab Requisition [facility] - Main Lab 299 [facility] [place] [address] Smitha Mcbride MD [address] [phone] Rhabdomyolysis Social History Tobacco Use Types Packs/Day [...] AM EDT) WBC 8.0 4.8 - 10.8 K/[facility] LAB HEMETOLOGY METHOD 06/06/2025 1:27 PM [facility] RBC 4.40(L) 4.50 - 5.50 M/mcL LAB HEMETOLOGY METHOD 06/06/2025 1:27 PM [facility] Hemoglobin 13.5 13.5 - 17.5 g/dL LAB HEMETOLOGY METHOD 06/06/2025 1:27 PM [facility] Hematocrit 40.8(L) 42.0 - 54.0 % LAB HEMETOLOGY METHOD 06/06/2025 1:27 PM [facility] MCV 92.9 79.0 - 98.0 FL LAB HEMETOLOGY METHOD 06/06/2025 1:27 PM [facility] MCH 30.8 27.0 - 32.0 pcg LAB HEMETOLOGY METHOD 06/06/2025 1:27 PM [facility] MCHC 33.1 32.0 - 37.0 g/dL LAB HEMETOLOGY METHOD 06/06/2025 1:27 PM [facility] RDW 12.0 11.0 - 15.0 % LAB HEMETOLOGY METHOD 06/06/2025 1:27 PM [facility] Platelets 312 130 - 400 K/mcL LAB HEMETOLOGY METHOD 06/06/2025 1:27 PM [facility] MPV 9.9 7.0 - 11.0 FL LAB HEMETOLOGY METHOD 06/06/2025 1:27 PM [facility] NRBC 0.0 <1.0 % LAB HEMETOLOGY METHOD 06/06/2025 1:27 PM [facility] NRBC Absolute 0.00 <0.10 K/mcL LAB HEMETOLOGY METHOD 06/06/2025 1:27 PM [facility] Blood Venous blood specimen / Unknown Venipuncture / Unknown 06/06/2025 9:39 AM EDT 06/06/2025 12:36 PM EDT us Smitha Mcbride MD LAB BLOOD ORDERABLES Fin al Result [facility] [address] [place] [address], [place] [phone] * (ABNORMAL) Basic metabolic panel (06/06/2025 9:39 AM EDT) Pathologist [facility] Sodium 136 133 - 145 mmol/L LAB CHEMISTRY METHOD 06/06/2025 7:01 PM [facility] Potassium 3.6 3.5 - 5.5 mmol/L LAB CHEMISTRY METHOD 06/06/2025 7:01 PM [facility] Chloride 99 96 - 110 mmol/L LAB CHEMISTRY METHOD 06/06/2025 7:01 PM [facility] CO2 28 21 - 32 mmol/L LAB CHEMISTRY METHOD 06/06/2025 7:01 PM [facility] Anion Gap 9 3 - 11 LAB CHEMISTRY METHOD 06/06/2025 7:01 PM [facility] Glucose 208(H) 70 - 100 mg/dL LAB CHEMISTRY METHOD 06/06/2025 7:01 PM [facility] BUN 16 5 - 25 mg/dL LAB CHEMISTRY METHOD 06/06/2025 7:01 PM [facility] Creatinine 0.89 0.70 - 1.30 mg/dL LAB CHEMISTRY METHOD 06/06/2025 7:01 PM [facility] eGFR 88 >=60 mL/min/1. 73m2 LAB CHEMISTRY METHOD 06/06/2025 7:01 PM [facility] Comment:Calculation based on the Chronic Kidney Disease Epidemiology Collaboration (CKD-EPI) equation refit without adjustment for race. 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
--- OUTSIDE RECORDS SUMMARY | 2025-09-20 15:01 | XMS_ITS | Encounter Summary ---
Author Organization [facility] Address [address] [place] [address] Care Team Providers Care Strip Machine Operator Name Role Phone Av Weathers Primary Care Provider +1 [phone] Encounter Details Date Type Department Care Team (Late st Contact Info) Description 03/05/2025 Lab Requisition [facility] - Main Lab 299 [facility] [place] [address] Smitha Mcbride MD [address] [phone] Rhabdomyolysis Social History Tobacco Use Types Packs/Day [...] your loved ones. For example, child welfare worker or elderly care for an older [...] AM EDT) WBC 10.7 4.8 - 10.8 K/[facility] LAB HEMETOLOGY METHOD 03/06/2025 10:44 AM [facility] RBC 3.80(L) 4.50 - 5.50 M/mcL LAB HEMETOLOGY METHOD 03/06/2025 10:44 AM [facility] Hemoglobin 12.4(L) 13.5 - 17.5 g/dL LAB HEMETOLOGY METHOD 03/06/2025 10:44 AM [facility] Hematocrit 37.5(L) 42.0 - 54.0 % LAB HEMETOLOGY METHOD 03/06/2025 10:44 AM [facility] MCV 100.0(H) 79.0 - 98.0 FL LAB HEMETOLOGY METHOD 03/06/2025 10:44 AM [facility] LAB MCH 33.1(H) 27.0 - 32.0 pcg LAB HEMETOLOGY METHOD 03/06/2025 10:44 AM [facility] LAB MCHC 33.1 32.0 - 37.0 g/dL LAB HEMETOLOGY METHOD 03/06/2025 10:44 AM [facility] LAB RDW 12.1 11.0 - 15.0 % LAB HEMETOLOGY METHOD 03/06/2025 10:44 AM [facility] LAB Platelets 298 130 - 400 K/mcL LAB HEMETOLOGY METHOD 03/06/2025 10:44 AM [facility] LAB MPV 10.0 7.0 - 11.0 FL LAB HEMETOLOGY METHOD 03/06/2025 10:44 AM [facility] NRBC 0.0 <1.0 % LAB HEMETOLOGY METHOD 03/06/2025 10:44 AM [facility] NRBC Absolute 0.00 <0.10 K/mcL LAB HEMETOLOGY METHOD 03/06/2025 10:44 AM [facility] Blood Venous blood specimen / Unknown Venipuncture / Unknown 03/06/2025 5:30 AM EDT 03/06/2025 10:11 AM EDT us Smitha Mcbride MD LAB BLOOD ORDERABLES Fin al Result [facility] [address] [place] [address], * (ABNORMAL) Basic metabolic panel (03/06/2025 5:30 AM EDT) [facility] Sodium 139 133 - 145 mmol/L LAB CHEMISTRY METHOD 03/06/2025 11:27 AM [facility] Potassium 4.2 3.5 - 5.5 mmol/L LAB CHEMISTRY METHOD 03/06/2025 11:27 AM [facility] Chloride 105 96 - 110 mmol/L LAB CHEMISTRY METHOD 03/06/2025 11:27 AM [facility] CO2 26 21 - 32 mmol/L LAB CHEMISTRY METHOD 03/06/2025 11:27 AM [facility] Anion Gap 8 3 - 11 LAB CHEMISTRY METHOD 03/06/2025 11:27 AM [facility] Glucose 112(H) 70 - 100 mg/dL LAB CHEMISTRY METHOD 03/06/2025 11:27 AM [facility] BUN 24 5 - 25 mg/dL LAB CHEMISTRY METHOD 03/06/2025 11:27 AM [facility] Creatinine 0.89 0.70 - 1.30 mg/dL LAB CHEMISTRY METHOD 03/06/2025 11:27 AM [facility] eGFR 88 >=60 mL/min/1. 73m2 LAB CHEMISTRY METHOD 03/06/2025 11:27 AM [facility] Comment:Calculation based on the Chronic Kidney Disease Epidemiology Collaboration (CKD-EPI) equation refit without adjustment for race. BUN/Creatinine Ratio 27.0 LAB CHEMISTRY METHOD 03/06/2025 11:27 AM EDT [facility] Calcium 9.0 8.5 - 10.5 mg/dL LAB CHEMISTRY METHOD 03/06/2025 11:27 AM EDT [facility] Blood Venous blood specimen / Unknown Venipuncture / Unknown 03/06/2025 5:30 AM EDT 03/06/2025 10:28 AM EDT us Smitha Mcbride MD LAB BLOOD ORDERABLES Fin al Result [facility] [address] [place] [address], documented in this encounter Visit Diagnoses Diagnosis Rhabdomyolysis documented in this encounter Additional Health Concerns Infection Onset Date Last Indicated Resolved Time 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
--- OUTSIDE RECORDS SUMMARY | 2025-09-20 15:01 | XMS_ITS | Encounter Summary ---
Author Organization [facility] Address [address] [place] [address] Care Team Providers Care Configurator Name Role Phone Av Weathers Primary Care Provider +1 [phone] Encounter Details Date Type Department Care Team (Late st Contact Info) Description 04/14/2025 Lab Requisition [facility] - Main Lab 299 [facility] [place] [address] Smitha Mcbride MD [address] [phone] Rhabdomyolysis Social History Tobacco Use Types Packs/Day [...] your loved ones. For example, child welfare director or elderly care for an older [...] AM EDT) WBC 8.7 4.8 - 10.8 K/[facility] LAB HEMETOLOGY METHOD 04/17/2025 1:31 PM [facility] RBC 3.70(L) 4.50 - 5.50 M/mcL LAB HEMETOLOGY METHOD 04/17/2025 1:31 PM [facility] Hemoglobin 11.7(L) 13.5 - 17.5 g/dL LAB HEMETOLOGY METHOD 04/17/2025 1:31 PM [facility] Hematocrit 36.8(L) 42.0 - 54.0 % LAB HEMETOLOGY METHOD 04/17/2025 1:31 PM [facility] MCV 99.7(H) 79.0 - 98.0 FL LAB HEMETOLOGY METHOD 04/17/2025 1:31 PM [facility] MCH 31.7 27.0 - 32.0 pcg LAB HEMETOLOGY METHOD 04/17/2025 1:31 PM [facility] MCHC 31.8(L) 32.0 - 37.0 g/dL LAB HEMETOLOGY METHOD 04/17/2025 1:31 PM [facility] RDW 12.3 11.0 - 15.0 % LAB HEMETOLOGY METHOD 04/17/2025 1:31 PM [facility] Platelets 370 130 - 400 K/mcL LAB HEMETOLOGY METHOD 04/17/2025 1:31 PM [facility] MPV 10.0 7.0 - 11.0 FL LAB HEMETOLOGY METHOD 04/17/2025 1:31 PM [facility] NRBC 0.0 <1.0 % LAB HEMETOLOGY METHOD 04/17/2025 1:31 PM [facility] NRBC Absolute 0.00 <0.10 K/mcL LAB HEMETOLOGY METHOD 04/17/2025 1:31 PM [facility] Blood Venous blood specimen / Unknown Venipuncture / Unknown 04/17/2025 6:51 AM EDT 04/17/2025 10:30 AM EDT us Smitha Mcbride MD LAB BLOOD ORDERABLES Fin al Result [facility] [address] [place] [address], [place] [phone] * (ABNORMAL) Basic metabolic panel (04/17/2025 6:51 AM EDT) [facility] Sodium 142 133 - 145 mmol/L LAB CHEMISTRY METHOD 04/17/2025 3:07 PM [facility] Potassium 3.7 3.5 - 5.5 mmol/L LAB CHEMISTRY METHOD 04/17/2025 3:07 PM [facility] Chloride 105 96 - 110 mmol/L LAB CHEMISTRY METHOD 04/17/2025 3:07 PM [facility] CO2 32 21 - 32 mmol/L LAB CHEMISTRY METHOD 04/17/2025 3:07 PM [facility] Anion Gap 5 3 - 11 LAB CHEMISTRY METHOD 04/17/2025 3:07 PM [facility] Glucose 117(H) 70 - 100 mg/dL LAB CHEMISTRY METHOD 04/17/2025 3:07 PM [facility] BUN 18 5 - 25 mg/dL LAB CHEMISTRY METHOD 04/17/2025 3:07 PM [facility] Creatinine 0.79 0.70 - 1.30 mg/dL LAB CHEMISTRY METHOD 04/17/2025 3:07 PM [facility] eGFR 91 >=60 mL/min/1. 73m2 LAB CHEMISTRY METHOD 04/17/2025 3:07 PM [facility] Comment:Calculation based on the Chronic Kidney Disease Epidemiology Collaboration (CKD-EPI) equation refit without adjustment for race. BUN/Creatinine Ratio 22.8 LAB CHEMISTRY METHOD 04/17/2025 3:07 PM EDT [facility] ([facility] Calcium 9.3 8.5 - 10.5 mg/dL LAB CHEMISTRY METHOD 04/17/2025 3:[address] [facility] Blood Venous blood specimen / Unknown Venipuncture / Unknown 04/17/2025 6:51 AM EDT 04/17/2025 10:30 AM EDT us Smitha Mcbride MD LAB BLOOD ORDERABLES Fin al Result 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
--- OUTSIDE RECORDS SUMMARY | 2025-09-20 15:01 | XMS_ITS | Encounter Summary ---
Author Organization [facility] Address [address] [place] [address] Care Team Providers Care Streaming Media Specialist Name Role Phone Av Weathers Primary Care Provider [phone] [phone] Encounter Details Date Type Department Care Team (Late st Contact Info) Description 08/01/[address] [facility] - Main Lab 299 [facility] [place] [address] Smitha Mcbride MD [address] [phone] Hematuria, unspecified Social History Tobacco Use Types [...] for your loved ones. For example, child protection specialist or elderly care for an older [...] Urinalysis with reflex microscopic (07/31/2025 12:00 AM ED) Specific [place] Urine 1.016 1.003 - 1.030 LAB URINALYSIS - AUTOMATED METHOD 08/01/2025 12:27 PM [facility] pH, Urine 6.5 5.0 - 8.0 pH LAB URINALYSIS - AUTOMATED METHOD 08/01/2025 12:27 PM [facility] Leukocytes, Urine Large(A) Negative LAB URINALYSIS - AUTOMATED METHOD 08/01/2025 12:27 PM [facility] Nitrite, Urine Negative Negative LAB URINALYSIS - AUTOMATED METHOD 08/01/2025 12:27 PM [facility] Protein, Urine 100(A) <=Trace mg/dL LAB URINALYSIS - AUTOMATED METHOD 08/01/2025 12:27 PM [facility] Glucose, Urine Negative Negative mg/dL LAB URINALYSIS - AUTOMATED METHOD 08/01/2025 12:27 PM [facility] Ketones, Urine Negative Negative mg/dL LAB URINALYSIS - AUTOMATED METHOD 08/01/2025 12:27 PM [facility] Urobilinogen , Urine 1.0 0.2 - 1.0 mg/dL LAB URINALYSIS - AUTOMATED METHOD 08/01/2025 12:27 PM [facility] Bilirubin, Urine Negative Negative LAB URINALYSIS - AUTOMATED METHOD 08/01/2025 12:27 PM [facility] Blood, Urine Large(A) Negative LAB URINALYSIS - AUTOMATED METHOD 08/01/2025 12:27 PM [facility] RBC, Urine 300.0(H) 0 - 4 /HPF LAB URINALYSIS - AUTOMATED METHOD 08/01/2025 12:27 PM [facility] WBC, Urine 565.7(H) 0 - 4 /HPF LAB URINALYSIS - AUTOMATED METHOD 08/01/2025 12:27 PM EDT [facility] Squamous Epithelial, Urine 18 0 - 60 /LPF LAB URINALYSIS - AUTOMATED METHOD 08/01/2025 12:27 PM EDT [facility] Crystals, Urine LT CALCIUM OXALATE /LPF LAB URINALYSIS - AUTOMATED METHOD 08/01/2025 12:27 PM EDT [facility] Bacteria, Urine Few(A) Negative /HPF LAB URINALYSIS - AUTOMATED METHOD 08/01/2025 12:27 PM T [facility] Hyaline Casts, Urine 3.0 0 - 3 /LPF LAB URINALYSIS - AUTOMATED METHOD 08/01/2025 12:27 PM [facility] Urine Urine specimen obtained by clean catch procedure / Unknown Non-blood Collection / Unknown 07/31/2025 08/01/2025 11:04 AM EDT Smitha Mcbride MD LAB URINE ORDERABLES [facility] al Result [facility] [address] [place] [address], * (ABNORMAL) Culture urine (07/31/2025 12:00 AM EDT) Culture, Urine 50,000-100,000 CFU/mL Providencia rettgeri(A) AZEB 08/04/2025 8:35 AM EDT [facility] Comment: The organism value for this result has been updated. These results have been appended to the previously preliminary verified report. This is an edited result. Previous organism was Gram negative bacilli on 08/03/2025 at 1302 EDT. Culture, Urine 10,000-49,000 CFU/mL Vancomycin resistant Enterococcus faecalis(A) AZEB 08/04/2025 8:35 AM EDT [facility] Comment: The organism value for this result has been updated. These results have been appended to the previously preliminary verified report. This is an edited result. Previous organism was Enterococcus species on 08/03/2025 at 1302 EDT. Urine Urine specimen obtained by clean catch procedure / Unknown Non-blood Collection / Unknown 07/31/2025 08/01/2025 11:04 AM EDT Narrative Organism Antibiotic Method Susceptibility Providencia rettgeri Ampicillin/Sulbactam AZEB <=2 ug/ml: Susceptible Providencia rettgeri Piperacillin/Tazobactam AZEB <=4 ug/ml: Susceptible Providencia rettgeri Cefoxitin AZEB <=4 ug/ml: Susceptible Providencia rettgeri Ceftazidime AZEB <=0.5 ug/ml: Susceptible Providencia rettgeri Ceftriaxone AZEB <=0.25 ug/ml: Susceptible Providencia rettgeri Cefepime AZEB <=0.12 ug/ml: Susceptible Providencia rettgeri Ciprofloxacin AZEB <=0.06 ug/ml: Susceptible Providencia rettgeri Levofloxacin AZEB <=0.12 ug/ml: Susceptible Providencia rettgeri Nitrofurantoin AZEB >=512 ug/ml: Resistant Providencia rettgeri Trimethoprim/Sulfam ethoxazol e AZEB <=20 ug/ml: Susceptible Vancomycin resistant Enterococcus faecalis Benzylpenicillin AZEB 2 ug/ml: Susceptible Vancomycin resistant Enterococcus faecalis Ampicillin AZEB <=2 ug/ml: Susceptible Vancomycin resistant Enterococcus faecalis Ciprofloxacin AZEB >=8 ug/ml: Resistant Vancomycin resistant Enterococcus faecalis Levofloxacin AZEB >=8 ug/ml: Resistant Vancomycin resistant Enterococcus faecalis Linezolid AZEB 2 ug/ml: Susceptible Vancomycin resistant Enterococcus faecalis Vancomycin AZEB >=32 ug/ml: Resistant Vancomycin resistant Enterococcus faecalis Tetracycline AZEB >=16 ug/ml: Resistant Vancomycin resistant Enterococcus faecalis Nitrofurantoin AZEB 32 ug/ml: Susceptible us Smitha Mcbride MD LAB MICROBIOLOGY - GENER AL ORDERABLES Final Result [facility] ([facility] [address] [place] [address], documented in this encounter Visit Diagnoses Diagnosis Hematuria, unspecified documented in this encounter Additional Health Concerns Infection Onset Date Last Indicated Resolved Time 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
--- OUTSIDE RECORDS SUMMARY | 2025-09-20 15:02 | XMS_ITS | Encounter Summary ---
Author Organization [facility] Address [address] [place] [address] Care Team Providers Care Broadcast Operations Engineer Name Role Phone Av Weathers Primary Care Provider [phone] [phone] Encounter Details Date Type Department Care Team (Late st Contact Info) Description 08/28/2025 Lab Requisition [facility] - Main Lab 299 [facility] [place] [address] Smitha Mcbride MD [address] [phone] Benign prostatic hyperplasia without lower urinary tract symptoms Social History Tobacco Use Types Packs/Day Years [...] for your loved ones. For example, child life therapist or elderly care for an older [...] Procedure Name Priority Date/Time Associated Diagnosis Comments PSA TOTAL, FREE AND COMPLEXED, DIAGNOSTIC Routine 08/28/2025 8:09 AM EST Benign prostatic hyperplasia without lower urinary tract symptoms documented in this encounter Results * (ABNORMAL) PSA total, free and complexed (08/28/2025 8:09 AM EST) PSA 1.83 0.00 - 4.00 ng/mL 08/28/2025 11:26 AM EST [facility] PSA, Complexed 1.81 0.00 - 3.00 ng/mL 08/28/2025 11:26 AM EST [facility] PSA, Free 0.0 ng/mL 08/28/2025 11:[address] [facility] PSA, Free Pct 0.0(L) >25.0 % 08/28/2025 11:26 AM EST [facility] Comment:Free PSA is a calcul ated value. The diagnostic usefulness of % free PSA has not been established in patients with Total PSA below 2.6 or above 10 ng/mL. 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
--- OUTSIDE RECORDS SUMMARY | 2025-09-20 15:02 | XMS_ITS | Encounter Summary ---
Author Organization [facility] Address [address] [place] [address] Care Team Providers Care Vp Platforms Name Role Phone Av Weathers Primary Care Provider +1 -[phone] Encounter Details Date Type Department Care Team (Late st Contact Info) Description 03/17/2025 Lab Requisition [facility] - Main Lab 299 [facility] [place] [address] Smitha Mcbride MD [address] [phone] Rhabdomyolysis Social History Tobacco Use Types Packs/Day [...] documented as of this encounter Care Teams Vp Platforms Relationship Specialty Start Date End Date Av Weathers PA [address] [place] [id number] PCP - General Internal Medicine 12/12/20 documented as of this encounter
--- OUTSIDE RECORDS SUMMARY | 2025-09-20 15:02 | XMS_ITS | Encounter Summary ---
Author Organization [facility] Address [address] [place] [address] Care Team Providers Care Verification Lead Name Role Phone Av Weathers Primary Care Provider +1 [phone] Encounter Details Date Type Department Care Team (Late st Contact Info) Description 05/21/2025 Lab Requisition [facility] - Main Lab 299 [facility] [place] [address] Smitha Mcbride MD [address] [phone] Rhabdomyolysis Social History Tobacco Use Types Packs/Day [...] for your loved ones. For example, child nutrition assistant or elderly care for an older [...] AM EDT) WBC 9.5 4.8 - 10.8 K/[facility] LAB HEMETOLOGY METHOD 05/22/2025 1:07 PM [facility] LAB RBC 4.10(L) 4.50 - 5.50 M/mcL LAB HEMETOLOGY METHOD 05/22/2025 1:07 PM [facility] LAB Hemoglobin 12.6(L) 13.5 - 17.5 g/dL LAB HEMETOLOGY METHOD 05/22/2025 1:07 PM [facility] LAB Hematocrit 38.9(L) 42.0 - 54.0 % LAB HEMETOLOGY METHOD 05/22/2025 1:07 PM [facility] LAB MCV 94.2 79.0 - 98.0 FL LAB HEMETOLOGY METHOD 05/22/2025 1:07 PM [facility] LAB MCH 30.5 27.0 - 32.0 pcg LAB HEMETOLOGY METHOD 05/22/2025 1:07 PM [facility] LAB MCHC 32.4 32.0 - 37.0 g/dL LAB HEMETOLOGY METHOD 05/22/2025 1:07 [facility] LAB RDW 12.3 11.0 - 15.0 % LAB HEMETOLOGY METHOD 05/22/2025 1:07 PM [facility] LAB Platelets 265 130 - 400 K/mcL LAB HEMETOLOGY METHOD 05/22/2025 1:07 PM [facility] LAB MPV 10.2 7.0 - 11.0 FL LAB HEMETOLOGY METHOD 05/22/2025 1:07 PM [facility] LAB NRBC 0.0 <1.0 % LAB HEMETOLOGY METHOD 05/22/2025 1:07 PM [facility] LAB NRBC Absolute 0.00 <0.10 K/mcL LAB HEMETOLOGY METHOD 05/22/2025 1:07 PM [facility] LAB Blood Venous blood specimen / Unknown Venipuncture / Unknown 05/22/2025 5:42 AM EDT 05/22/2025 11:11 AM EDT us Smitha Mcbride MD LAB BLOOD ORDERABLES Fin al Result [facility] LAB [address] [place] [address], [place] [phone] * (ABNORMAL) Basic metabolic panel (05/22/2025 5:42 AM EDT) Sodium 139 133 - 145 mmol/L LAB CHEMISTRY METHOD [facility] Potassium 3.5 3.5 - 5.5 mmol/L LAB CHEMISTRY METHOD 05/22/2025 12:45 PM [facility] LAB Chloride 102 96 - 110 mmol/L LAB CHEMISTRY METHOD 05/22/2025 12:45 PM [facility] LAB CO2 28 21 - 32 mmol/L LAB CHEMISTRY METHOD 05/22/2025 12:45 PM [facility] LAB Anion Gap 9 3 - 11 LAB CHEMISTRY METHOD 05/22/2025 12:45 PM [facility] LAB Glucose 142(H) 70 - 100 mg/dL LAB CHEMISTRY METHOD 05/22/2025 12:45 PM [facility] LAB BUN 17 5 - 25 mg/dL LAB CHEMISTRY METHOD 05/22/2025 12:45 PM [facility] LAB Creatinine 0.84 0.70 - 1.30 mg/dL LAB CHEMISTRY METHOD 05/22/2025 12:45 PM [facility] LAB eGFR 90 >=60 mL/min/1. 73m2 LAB CHEMISTRY METHOD 05/22/2025 12:45 PM [facility] LAB Comment:Calculation based on the Chronic Kidney Disease Epidemiology Collaboration (CKD-EPI) equation refit without adjustment for race. BUN/Creatinine Ratio 20.2 LAB CHEMISTRY METHOD 05/22/2025 12:45 PM EDT [facility] LAB Calcium 9.4 8.5 - 10.5 mg/dL LAB CHEMISTRY METHOD 05/22/2025 12:45 PM EDT [facility] LAB Blood Venous blood specimen / Unknown Venipuncture / Unknown 05/22/2025 5:42 AM EDT 05/22/2025 11:11 AM EDT us Smitha Mcbride MD LAB BLOOD ORDERABLES Fin al Result [facility] LAB [address] [place] [address], documented in this encounter Visit Diagnoses Diagnosis Rhabdomyolysis documented in this encounter Additional Health Concerns Infection Onset Date Last Indicated Resolved Time VRE 07/31/2025 07/31/2025 Assessment Noted Time PHQ-9 Depression Total Score: 0 01/17/20 25 8:47 AM EDT A fall risk assessment has been complete d for the patient 01/16/2025 8:47 AM EDT documented as of this encounter Care Teams Verification Lead Relationship Specialty Start Date End Date Av Weathers PA [address] [place] [id number] PCP - General Internal Medicine 12/12/20 documented as of this encounter
--- OUTSIDE RECORDS SUMMARY | 2025-09-20 15:02 | XMS_ITS | Encounter Summary ---
Author Organization [facility] Address [address] [place] [address] Care Team Providers Care Java Systems Analyst Name Role Phone Av Weathers Primary Care Provider +1 [phone] Encounter Details Date Type Department Care Team (Late st Contact Info) Description 06/10/2025 Lab Requisition [facility] - Main Lab 299 [facility] [place] [address] Smitha Mcbride MD [address] [phone] Rhabdomyolysis; Impaired fasting glucose Social History Tobacco [...] your loved ones. For example, early childhood worker or elderly care for an older [...] * Hemoglobin A1c (06/12/2025 9:45 AM EDT) [facility] Hemoglobin A1C 6.2 <6.5 % LAB CHEMISTRY [...] [facility] LAB [address] [place] [address], [place] [phone] * (ABNORMAL) Complete blood count (06/12/2025 9:45 AM EDT) [facility] WBC 7.8 4.8 - 10.8 K/mcL LAB [...] [facility] [address] [place] [address], * (ABNORMAL) Basic metabolic panel (06/12/2025 9:45 [...] [facility] [address] [place] [address], documented in this encounter Visit Diagnoses Diagnosis Rhabdomyolysis Impaired fasting glucose documented in this encounter Additional Health Concerns Infection Onset Date Last Indicated Resolved Time VRE 07/31/2025 07/31/2025 Assessment Noted Time PHQ-9 Depression Total Score: 0 01/17/20 8:47 AM EDT A fall risk assessment has been complete d for the patient 01/16/2025 8:47 AM EDT documented as of this encounter Care Teams Java Systems Analyst Relationship Specialty Start Date End Date Av Weathers PA [address] [place] [address] PCP - General Internal Medicine 12/12/20 documented as of this encounter
--- OUTSIDE RECORDS SUMMARY | 2025-09-20 15:02 | XMS_ITS | Encounter Summary ---
Author Organization [facility] Address [address] [place] [address] Care Team Providers Care Custom Motorcycle Painter Name Role Phone Av Weathers Primary Care Provider +1 [phone] Encounter Details Date Type Department Care Team (Late st Contact Info) Description 03/02/2025 Lab Requisition [facility] - Main Lab 299 [facility] [place] [address] Smitha Mcbride MD [address] [phone] Rhabdomyolysis Social History Tobacco Use Types Packs/Day [...] care for your loved ones. For example, school childcare attendant or elderly care for an older [...] mmol/L LAB CHEMISTRY METHOD 03/02/2025 11:14 AM [facility] LAB Potassium 4.0 3.5 - 5.5 mmol/L LAB CHEMISTRY METHOD 03/02/2025 11:14 AM [facility] LAB Chloride 105 96 - 110 mmol/L LAB CHEMISTRY METHOD 03/02/2025 11:14 AM [facility] LAB CO2 28 21 - 32 mmol/L LAB CHEMISTRY METHOD 03/02/2025 11:14 AM [facility] LAB Anion Gap 6 3 - 11 LAB CHEMISTRY METHOD 03/02/2025 11:14 AM [facility] LAB Glucose 121(H) 70 - 100 mg/dL LAB CHEMISTRY METHOD 03/02/2025 11:14 AM [facility] LAB BUN 20 5 - 25 mg/dL LAB CHEMISTRY METHOD 03/02/2025 11:14 AM [facility] LAB Creatinine 0.71 0.70 - 1.30 mg/dL LAB CHEMISTRY METHOD 03/02/2025 11:14 AM [facility] LAB eGFR 94 >=60 mL/min/1. 73m2 LAB CHEMISTRY METHOD 03/02/2025 11:14 AM [facility] LAB Comment:Calculation based on the Chronic Kidney Disease Epidemiology Collaboration (CKD-EPI) equation refit without adjustment for race. BUN/Creatinine Ratio 28.2 LAB CHEMISTRY METHOD 03/02/2025 11:14 AM [facility] LAB Calcium 9.3 8.5 - 10.5 mg/dL LAB CHEMISTRY METHOD 03/02/2025 11:14 AM [facility] LAB Blood Venous blood specimen / Unknown Venipuncture / Unknown 03/02/2025 5:17 AM EDT 03/02/2025 9:58 AM EDT us Smitha Mcbride MD LAB BLOOD ORDERABLES Fin al Result [facility] LAB [address] [place], [place] [address] [phone] * (ABNORMAL) Complete blood count (03/02/2025 5:17 AM EDT) [facility] WBC 9.6 4.8 - 10.8 K/mcL LAB HEMETOLOGY METHOD 03/02/2025 10:27 AM [facility] LAB RBC 4.10(L) 4.50 - 5.50 M/mcL LAB HEMETOLOGY METHOD 03/02/2025 10:27 AM [facility] LAB Hemoglobin 13.2(L) 13.5 - 17.5 g/dL LAB HEMETOLOGY METHOD 03/02/2025 10:27 AM [facility] LAB Hematocrit 40.2(L) 42.0 - 54.0 % LAB HEMETOLOGY METHOD 03/02/2025 10:27 AM [facility] LAB MCV 99.0(H) 79.0 - 98.0 FL LAB HEMETOLOGY METHOD 03/02/2025 10:27 AM [facility] LAB MCH 32.5(H) 27.0 - 32.0 pcg LAB HEMETOLOGY METHOD 03/02/2025 10:27 AM [facility] LAB MCHC 32.8 32.0 - 37.0 g/dL LAB HEMETOLOGY METHOD 03/02/2025 10:27 AM [facility] LAB RDW 11.9 11.0 - 15.0 % LAB HEMETOLOGY METHOD 03/02/2025 10:27 AM [facility] LAB Platelets 306 130 - 400 K/mcL LAB HEMETOLOGY METHOD 03/02/2025 10:27 AM [facility] LAB MPV 10.0 7.0 - 11.0 FL LAB HEMETOLOGY METHOD 03/02/2025 10:27 AM [facility] LAB NRBC 0.0 <1.0 % LAB HEMETOLOGY METHOD 03/02/2025 10:27 AM EDT [facility] LAB NRBC Absolute 0.00 <0.10 K/mcL LAB HEMETOLOGY METHOD 03/02/2025 10:27 AM EDT [facility] LAB Blood Venous blood specimen / Unknown Venipuncture / Unknown 03/02/2025 5:17 AM EDT 03/02/2025 9:58 AM EDT us Smitha Mcbride MD LAB BLOOD ORDERABLES Fin al Result [facility] LAB [address] [place] [address], documented in this encounter Visit Diagnoses Diagnosis Rhabdomyolysis documented in this encounter Additional Health Concerns Infection Onset Date Last Indicated Resolved Time VRE 07/31/2025 07/31/2025 Assessment Noted Time PHQ-9 Depression Total Score: 0 01/17/20 25 8:47 AM EDT A fall risk assessment has been complete d for the patient 01/16/2025 8:47 AM EDT documented as of this encounter Care Teams Custom Motorcycle Painter Relationship Specialty Start Date End Date Av Weathers PA [address] [place] [id number] PCP - General Internal Medicine 12/12/20 documented as of this encounter
--- OUTSIDE RECORDS SUMMARY | 2025-09-20 15:02 | XMS_ITS | Encounter Summary ---
Author Organization [facility] Address [address] [place] [address] Care Team Providers Care Mac Developer Name Role Phone Av Weathers Primary Care Provider +1 -[phone] Encounter Details Date Type Department Care Team (Late st Contact Info) Description 04/29/2025 Lab Requisition [facility] - Main Lab 299 [facility] [place] [address] Smitha Mcbride MD [address] [phone] Vitamin D deficiency, unspecified; Rhabdomyolysis Social History [...] for your loved ones. For example, childcare provider or elderly care for an older [...] Complete blood count (05/01/2025 6:37 AM EDT) [facility] WBC 10.1 4.8 - 10.8 K/mcL LAB HEMETOLOGY METHOD 05/01/2025 12:09 PM [facility] LAB RBC 4.00(L) 4.50 - 5.50 M/mcL LAB HEMETOLOGY METHOD 05/01/2025 12:09 PM [facility] LAB Hemoglobin 12.3(L) 13.5 - 17.5 g/dL LAB HEMETOLOGY METHOD 05/01/2025 12:09 PM [facility] LAB Hematocrit 38.7(L) 42.0 - 54.0 % LAB HEMETOLOGY METHOD 05/01/2025 12:09 PM [facility] LAB MCV 96.8 79.0 - 98.0 FL LAB HEMETOLOGY METHOD 05/01/2025 12:09 PM [facility] LAB MCH 30.8 27.0 - 32.0 pcg LAB HEMETOLOGY METHOD 05/01/2025 12:09 PM [facility] LAB MCHC 31.8(L) 32.0 - 37.0 g/dL LAB HEMETOLOGY METHOD 05/01/2025 12:09 PM [facility] LAB RDW 12.5 11.0 - 15.0 % LAB HEMETOLOGY METHOD 05/01/2025 12:09 PM [facility] LAB Platelets 309 130 - 400 K/mcL LAB HEMETOLOGY METHOD 05/01/2025 12:09 PM [facility] LAB MPV 9.8 7.0 - 11.0 FL LAB HEMETOLOGY METHOD 05/01/2025 12:09 PM [facility] LAB NRBC 0.0 <1.0 % LAB HEMETOLOGY METHOD 05/01/2025 12:09 PM [facility] LAB NRBC Absolute 0.00 <0.10 K/mcL LAB HEMETOLOGY METHOD 05/01/2025 12:09 PM [facility] LAB Blood Venous blood specimen / Unknown Venipuncture / Unknown 05/01/2025 6:37 AM EDT 05/01/2025 10:49 AM EDT us Smitha Mcbride MD LAB BLOOD ORDERABLES Fin al Result [facility] LAB [address] [place] [address], [place] [phone] * Basic metabolic panel (05/01/2025 6:37 AM EDT) Sodium 139 133 - 145 mmol/L LAB CHEMISTRY METHOD 05/01/2025 11:59 AM [facility] LAB Potassium 4.0 3.5 - 5.5 mmol/L LAB CHEMISTRY METHOD 05/01/2025 11:59 AM [facility] LAB Chloride 102 96 - 110 mmol/L LAB CHEMISTRY METHOD 05/01/2025 11:59 AM [facility] LAB CO2 31 21 - 32 mmol/L LAB CHEMISTRY METHOD 05/01/2025 11:59 AM [facility] LAB Anion Gap 6 3 - 11 LAB CHEMISTRY METHOD 05/01/2025 11:59 AM [facility] LAB Glucose 87 70 - 100 mg/dL LAB CHEMISTRY METHOD 05/01/2025 11:59 AM [facility] LAB BUN 15 5 - 25 mg/dL LAB CHEMISTRY METHOD 05/01/2025 11:59 AM [facility] LAB Creatinine 0.96 0.70 - 1.30 mg/dL LAB CHEMISTRY METHOD 05/01/2025 11:59 AM [facility] LAB eGFR 81 >=60 mL/min/1. 73m2 LAB CHEMISTRY METHOD 05/01/2025 11:59 AM EDT [facility] LAB Comment:Calculation based on the Chronic Kidney Disease Epidemiology Collaboration (CKD-EPI) equation refit without adjustment for race. BUN/Creatinine Ratio 15.6 LAB CHEMISTRY METHOD 05/01/2025 11:59 AM EDT [facility] LAB Calcium 9.3 8.5 - 10.5 mg/dL LAB CHEMISTRY METHOD 05/01/2025 11:59 AM EDT [facility] LAB Blood Venous blood specimen / Unknown Venipuncture / Unknown 05/01/2025 6:37 AM EDT 05/01/2025 10:49 AM EDT Smitha Mcbride MD LAB BLOOD ORDERABLES Fin al Result Performing Organization Address [facility] Co de Phone Number [facility] LAB [address] [place] [address], [place] [phone] * Vitamin D 25 hydroxy (05/01/2025 6:37 AM EDT) [facility] Vit D, 25-Hydroxy 44.1 30.0 - 80.0 ng/mL LAB CHEMISTRY METHOD 05/01/2025 1:24 PM EDT [facility] LAB Blood Venous blood specimen / Unknown Venipuncture / Unknown 05/01/2025 6:37 AM EDT 05/01/2025 10:49 AM EDT Smitha Mcbride MD LAB BLOOD ORDERABLES Fin al Result [facility] LAB [address] [place] [address], [place] [phone] documented in this encounter Visit Diagnoses Diagnosis Vitamin D deficiency, unspecified Rhabdomyolysis documented in this encounter Additional Health Concerns Infection Onset Date Last Indicated Resolved Time 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
--- OUTSIDE RECORDS SUMMARY | 2025-09-20 15:02 | XMS_ITS | Encounter Summary ---
Author Organization [facility] Address [address] [place] [address] Care Team Providers Care Trust And Estates Attorney Name Role Phone Av Weathers Primary Care Provider +1 [phone] Encounter Details Date Type Department Care Team (Late st Contact Info) Description 03/02/2025 Lab Requisition [facility] - Main Lab 299 [facility] [place] [address] Smitha Mcbride MD [address] [phone] Rhabdomyolysis Social History Tobacco Use Types Packs/Day [...] care for your loved ones. For example, housekeeper child care or elderly care for an older adult? [...] K/mcL LAB HEMETOLOGY METHOD 03/03/2025 9:42 AM [facility] LAB RBC 3.90(L) 4.50 - 5.50 M/mcL LAB HEMETOLOGY METHOD 03/03/2025 9:42 AM [facility] LAB Hemoglobin 12.6(L) 13.5 - 17.5 g/dL LAB HEMETOLOGY METHOD 03/03/2025 9:42 AM [facility] LAB Hematocrit 38.5(L) 42.0 - 54.0 % LAB HEMETOLOGY METHOD 03/03/2025 9:42 AM [facility] LAB MCV 99.5(H) 79.0 - 98.0 FL LAB HEMETOLOGY METHOD 03/03/2025 9:42 AM [facility] LAB MCH 32.6(H) 27.0 - 32.0 pcg LAB HEMETOLOGY METHOD 03/03/2025 9:42 AM [facility] LAB MCHC 32.7 32.0 - 37.0 g/dL LAB HEMETOLOGY METHOD 03/03/2025 9:42 AM [facility] LAB RDW 11.9 11.0 - 15.0 % LAB HEMETOLOGY METHOD 03/03/2025 9:42 AM [facility] LAB Platelets 312 130 - 400 K/mcL LAB HEMETOLOGY METHOD 03/03/2025 9:42 AM [facility] LAB MPV 10.2 7.0 - 11.0 FL LAB HEMETOLOGY METHOD 03/03/2025 9:42 AM [facility] LAB NRBC 0.0 <1.0 % LAB HEMETOLOGY METHOD 03/03/2025 9:42 AM [facility] LAB NRBC Absolute 0.00 <0.10 K/mcL LAB HEMETOLOGY METHOD 03/03/2025 9:42 AM [facility] LAB Blood Venous blood specimen / Unknown Venipuncture / Unknown 03/03/2025 5:19 AM EDT 03/03/2025 9:31 AM EDT us Smitha Mcbride MD LAB BLOOD ORDERABLES Fin al Result [facility] LAB [address] [place] [address], * (ABNORMAL) Basic metabolic panel (03/03/2025 5:19 AM EDT) Pathologist [facility] Sodium 137 133 - 145 mmol/L LAB CHEMISTRY METHOD 03/03/2025 10:41 AM [facility] LAB Potassium 4.2 3.5 - 5.5 mmol/L LAB CHEMISTRY METHOD 03/03/2025 10:41 AM [facility] LAB Chloride 104 96 - 110 mmol/L LAB CHEMISTRY METHOD 03/03/2025 10:41 AM [facility] LAB CO2 26 21 - 32 mmol/L LAB CHEMISTRY METHOD 03/03/2025 10:41 AM [facility] LAB Anion Gap 7 3 - 11 LAB CHEMISTRY METHOD 03/03/2025 10:41 AM [facility] LAB Glucose 123(H) 70 - 100 mg/dL LAB CHEMISTRY METHOD 03/03/2025 10:41 AM [facility] LAB BUN 24 5 - 25 mg/dL LAB CHEMISTRY METHOD 03/03/2025 10:41 AM [facility] LAB Creatinine 0.73 0.70 - 1.30 mg/dL LAB CHEMISTRY METHOD 03/03/2025 10:41 AM [facility] LAB eGFR 94 >=60 mL/min/1. 73m2 LAB CHEMISTRY METHOD 03/03/2025 10:41 AM [facility] LAB Comment:Calculation based on the Chronic Kidney Disease Epidemiology Collaboration (CKD-EPI) equation refit without adjustment for race. BUN/Creatinine Ratio 32.9 LAB CHEMISTRY METHOD 03/03/2025 10:41 AM EDT [facility] LAB Calcium 9.5 8.5 - 10.5 mg/dL LAB CHEMISTRY METHOD 03/03/2025 10:41 AM EDT [facility] LAB Blood Venous blood specimen / Unknown Venipuncture / Unknown 03/03/2025 5:19 AM EDT 03/03/2025 9:31 AM EDT us Smitha Mcbride MD LAB BLOOD ORDERABLES Fin al Result [facility] [address] [place] [address], documented in this encounter Visit Diagnoses Diagnosis Rhabdomyolysis documented in this encounter Additional Health Concerns Infection Onset Date Last Indicated Resolved Time 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
--- OUTSIDE RECORDS SUMMARY | 2025-09-20 15:02 | XMS_ITS | Encounter Summary ---
Author Organization [facility] Address [address] [place] [address] Care Team Providers Care Sash Assembler Name Role Phone Av Weathers Primary Care Provider [phone] [phone] Encounter Details Date Type Department Care Team (Late st Contact Info) Description 04/23/2025 Lab Requisition [facility] - Main Lab 299 [facility] [place] [address] Smitha Mcbride MD [address] [phone] Rhabdomyolysis Social History Tobacco Use Types Packs/Day [...] K/mcL LAB HEMETOLOGY METHOD 04/24/2025 12:25 PM [facility] RBC 4.00(L) 4.50 - 5.50 M/mcL LAB HEMETOLOGY METHOD 04/24/2025 12:25 PM [facility] Hemoglobin 12.3(L) 13.5 - 17.5 g/dL LAB HEMETOLOGY METHOD 04/24/2025 12:25 PM [facility] Hematocrit 38.2(L) 42.0 - 54.0 % LAB HEMETOLOGY METHOD 04/24/2025 12:25 PM [facility] MCV 96.7 79.0 - 98.0 FL LAB HEMETOLOGY METHOD 04/24/2025 12:25 PM [facility] MCH 31.1 27.0 - 32.0 pcg LAB HEMETOLOGY METHOD 04/24/2025 12:25 PM [facility] LAB MCHC 32.2 32.0 - 37.0 g/dL LAB HEMETOLOGY METHOD 04/24/2025 12:25 PM [facility] RDW 12.3 11.0 - 15.0 % LAB HEMETOLOGY METHOD 04/24/2025 12:25 PM [facility] Platelets 348 130 - 400 K/mcL LAB HEMETOLOGY METHOD 04/24/2025 12:25 PM [facility] MPV 9.8 7.0 - 11.0 FL LAB HEMETOLOGY METHOD 04/24/2025 12:25 PM [facility] NRBC 0.0 <1.0 % LAB HEMETOLOGY METHOD 04/24/2025 12:25 PM [facility] NRBC Absolute 0.00 <0.10 K/mcL LAB HEMETOLOGY METHOD 04/24/2025 12:25 PM [facility] Blood Venous blood specimen / Unknown Venipuncture / Unknown 04/24/2025 6:09 AM EDT 04/24/2025 11:35 AM EDT us Smitha Mcbride MD LAB BLOOD ORDERABLES Fin al Result [facility] LAB [address] [place] [address], [place] [phone] * (ABNORMAL) Basic metabolic panel (04/24/2025 6:09 AM EDT) Pathologist [facility] Sodium 142 133 - 145 mmol/L LAB CHEMISTRY METHOD 04/24/2025 2:01 PM [facility] Potassium 3.6 3.5 - 5.5 mmol/L LAB CHEMISTRY METHOD 04/24/2025 2:01 PM [facility] Chloride 103 96 - 110 mmol/L LAB CHEMISTRY METHOD 04/24/2025 2:01 PM [facility] CO2 28 21 - 32 mmol/L LAB CHEMISTRY METHOD 04/24/2025 2:01 PM [facility] Anion Gap 11 3 - 11 LAB CHEMISTRY METHOD 04/24/2025 2:01 PM [facility] Glucose 108(H) 70 - 100 mg/dL LAB CHEMISTRY METHOD 04/24/2025 2:01 PM [facility] BUN 18 5 - 25 mg/dL LAB CHEMISTRY METHOD 04/24/2025 2:01 PM [facility] Creatinine 0.93 0.70 - 1.30 mg/dL LAB CHEMISTRY METHOD 04/24/2025 2:01 PM [facility] eGFR 85 >=60 mL/min/1. 73m2 LAB CHEMISTRY METHOD 04/24/2025 2:01 PM [facility] Comment:Calculation based on the Chronic Kidney Disease Epidemiology Collaboration (CKD-EPI) equation refit without adjustment for race. BUN/Creatinine Ratio 19.4 LAB CHEMISTRY METHOD 04/24/2025 2:01 PM EDT [facility] LAB Calcium 9.3 8.5 - 10.5 mg/dL LAB CHEMISTRY METHOD 04/24/2025 2:01 PM EDT [facility] LAB Blood Venous blood specimen / Unknown Venipuncture / Unknown 04/24/2025 6:09 AM EDT 04/24/2025 11:35 AM EDT us Smitha Mcbride MD LAB BLOOD ORDERABLES Fin al Result [facility] LAB [address] [place] [address], documented in this encounter Visit Diagnoses Diagnosis Rhabdomyolysis documented in this encounter Additional Health Concerns Infection Onset Date Last Indicated Resolved Time VRE 07/31/2025 07/31/2025 Assessment Noted Time PHQ-9 Depression Total Score: 0 01/17/20 25 8:47 AM EDT A fall risk assessment has been complete d for the patient 01/16/2025 8:47 AM EDT documented as of this encounter Care Teams Sash Assembler Relationship Specialty Start Date End Date Av Weathers PA [address] [place] [id number] PCP - General Internal Medicine 12/12/20 documented as of this encounter
--- OUTSIDE RECORDS SUMMARY | 2025-09-20 15:02 | XMS_ITS | Encounter Summary ---
Author Organization [facility] Address [address] [place] [address] Care Team Providers Care Horse Trekking Guide Name Role Phone Av Weathers Primary Care Provider [phone] [phone] Encounter Details Date Type Department Care Team (Late st Contact Info) Description 05/27/2025 Lab Requisition [facility] - Main Lab 299 [facility] [place] [address] Smitha Mcbride MD [address] [phone] Rhabdomyolysis Social History Tobacco Use Types Packs/Day [...] your loved ones. For example, child care worker or elderly care for an older [...] AM EDT) WBC 10.1 4.8 - 10.8 K/[facility] LAB HEMETOLOGY METHOD 05/29/2025 11:01 AM [facility] LAB RBC 4.70 4.50 - 5.50 M/mcL LAB HEMETOLOGY METHOD 05/29/2025 11:01 AM [facility] LAB Hemoglobin 14.1 13.5 - 17.5 g/dL LAB HEMETOLOGY METHOD 05/29/2025 11:01 AM [facility] LAB Hematocrit 43.0 42.0 - 54.0 % LAB HEMETOLOGY METHOD 05/29/2025 11:01 AM [facility] LAB MCV 92.3 79.0 - 98.0 FL LAB HEMETOLOGY METHOD 05/29/2025 11:01 AM [facility] LAB MCH 30.3 27.0 - 32.0 pcg LAB HEMETOLOGY METHOD 05/29/2025 11:01 AM [facility] LAB MCHC 32.8 32.0 - 37.0 g/dL LAB HEMETOLOGY METHOD 05/29/2025 11:01 AM [facility] LAB RDW 12.2 11.0 - 15.0 % LAB HEMETOLOGY METHOD 05/29/2025 11:01 AM [facility] LAB Platelets 331 130 - 400 K/mcL LAB HEMETOLOGY METHOD 05/29/2025 11:01 AM [facility] LAB MPV 9.9 7.0 - 11.0 FL LAB HEMETOLOGY METHOD 05/29/2025 11:01 AM [facility] LAB NRBC 0.0 <1.0 % LAB HEMETOLOGY METHOD 05/29/2025 11:01 AM [facility] LAB NRBC Absolute 0.00 <0.10 K/mcL LAB HEMETOLOGY METHOD 05/29/2025 11:01 AM [facility] LAB Blood Venous blood specimen / Unknown Venipuncture / Unknown 05/29/2025 7:07 AM EDT 05/29/2025 10:25 AM EDT us Smitha Mcbride MD LAB BLOOD ORDERABLES Fin al Result [facility] LAB [address] [place] [address], [place] [phone] * (ABNORMAL) Basic metabolic panel (05/29/2025 7:07 AM EDT) Pathologist [facility] Sodium 138 133 - 145 mmol/L LAB CHEMISTRY METHOD 05/29/2025 1:52 PM T [facility] LAB Potassium 3.8 3.5 - 5.5 mmol/L LAB CHEMISTRY METHOD 05/29/2025 1:52 PM [facility] Chloride 100 96 - 110 mmol/L LAB CHEMISTRY METHOD 05/29/2025 1:52 PM [facility] LAB CO2 29 21 - 32 mmol/L LAB CHEMISTRY METHOD 05/29/2025 1:52 PM [facility] LAB Anion Gap 9 3 - 11 LAB CHEMISTRY METHOD 05/29/2025 1:52 PM [facility] LAB Glucose 111(H) 70 - 100 mg/dL LAB CHEMISTRY METHOD 05/29/2025 1:52 PM [facility] LAB BUN 11 5 - 25 mg/dL LAB CHEMISTRY METHOD 05/29/2025 1:52 PM [facility] LAB Creatinine 0.92 0.70 - 1.30 mg/dL LAB CHEMISTRY METHOD 05/29/2025 1:52 PM [facility] LAB eGFR 86 >=60 mL/min/1. 73m2 LAB CHEMISTRY METHOD 05/29/2025 1:52 PM [facility] LAB Comment:Calculation based on the Chronic Kidney Disease Epidemiology Collaboration (CKD-EPI) equation refit without adjustment for race. BUN/Creatinine Ratio 12.0 LAB CHEMISTRY METHOD 05/29/2025 1:52 PM [facility] LAB Calcium 9.5 8.5 - 10.5 mg/dL LAB CHEMISTRY METHOD 05/29/2025 1:52 PM EDT [facility] Blood Venous blood specimen / Unknown Venipuncture / Unknown 05/29/2025 7:07 AM EDT 05/29/2025 10:24 AM EDT us Smitha Mcbride MD LAB BLOOD ORDERABLES Fin al Result [facility] LAB [address] [place] [address], documented in this encounter Visit Diagnoses Diagnosis Rhabdomyolysis documented in this encounter Additional Health Concerns Infection Onset Date Last Indicated Resolved Time VRE 07/31/2025 07/31/2025 Assessment Noted Time PHQ-9 Depression Total Score: 0 01/17/20 25 8:47 AM EDT A fall risk assessment has been complete d for the patient 01/16/2025 8:47 AM EDT documented as of this encounter Care Teams Horse Trekking Guide Relationship Specialty Start Date End Date Av Weathers PA [address] [place] [address] PCP - General Internal Medicine 12/12/20 documented as of this encounter
--- OUTSIDE RECORDS SUMMARY | 2025-09-20 15:02 | XMS_ITS | Encounter Summary ---
Author Organization [facility] Address [address] [place] [address] Care Team Providers Care Boat Oar Maker Name Role Phone Av Weathers Primary Care Provider [phone] [phone] Encounter Details Date Type Department Care Team (Late st Contact Info) Description 03/10/[address] [facility] - Main Lab 299 [facility] [place] [address] Smitha Mcbride MD [address] [phone] Rhabdomyolysis Social History Tobacco Use Types Packs/Day [...] AM EDT) WBC 9.0 4.8 - 10.8 K/[facility] LAB HEMETOLOGY METHOD 03/13/2025 1:11 PM [facility] LAB RBC 3.80(L) 4.50 - 5.50 M/mcL LAB HEMETOLOGY METHOD 03/13/2025 1:11 PM [facility] LAB Hemoglobin 12.2(L) 13.5 - 17.5 g/dL LAB HEMETOLOGY METHOD 03/13/2025 1:11 PM [facility] LAB Hematocrit 37.3(L) 42.0 - 54.0 % LAB HEMETOLOGY METHOD 03/13/2025 1:11 PM [facility] LAB MCV 97.4 79.0 - 98.0 FL LAB HEMETOLOGY METHOD 03/13/2025 1:11 PM [facility] LAB MCH 31.9 27.0 - 32.0 pcg LAB HEMETOLOGY METHOD 03/13/2025 1:11 PM [facility] LAB MCHC 32.7 32.0 - 37.0 g/dL LAB HEMETOLOGY METHOD 03/13/2025 1:11 PM [facility] LAB RDW 11.9 11.0 - 15.0 % LAB HEMETOLOGY METHOD 03/13/2025 1:11 PM [facility] LAB Platelets 334 130 - 400 K/mcL LAB HEMETOLOGY METHOD 03/13/2025 1:11 PM [facility] LAB MPV 10.2 7.0 - 11.0 FL LAB HEMETOLOGY METHOD 03/13/2025 1:11 PM [facility] LAB NRBC 0.0 <1.0 % LAB HEMETOLOGY METHOD 03/13/2025 1:11 PM [facility] LAB NRBC Absolute 0.00 <0.10 K/mcL LAB HEMETOLOGY METHOD 03/13/2025 1:11 PM [facility] LAB Blood Venous blood specimen / Unknown Venipuncture / Unknown 03/13/2025 6:21 AM EDT 03/13/2025 10:29 AM EDT Smitha Mcbride MD LAB BLOOD ORDERABLES Fin al Result [facility] LAB [address] [place] [address], [place] [phone] * (ABNORMAL) Basic metabolic panel (03/13/2025 6:21 AM EDT) Sodium 137 133 - 145 mmol/L LAB CHEMISTRY METHOD 03/13/2025 11:52 AM [facility] LAB Potassium 4.2 3.5 - 5.5 mmol/L LAB CHEMISTRY METHOD 03/13/2025 11:52 AM [facility] Chloride 103 96 - 110 mmol/L LAB CHEMISTRY METHOD 03/13/2025 11:52 AM [facility] LAB CO2 29 21 - 32 mmol/L LAB CHEMISTRY METHOD 03/13/2025 11:52 AM [facility] LAB Anion Gap 5 3 - 11 LAB CHEMISTRY METHOD 03/13/2025 11:52 AM [facility] LAB Glucose 109(H) 70 - 100 mg/dL LAB CHEMISTRY METHOD 03/13/2025 11:52 AM [facility] BUN 13 5 - 25 mg/dL LAB CHEMISTRY METHOD 03/13/2025 11:52 AM [facility] LAB Creatinine 0.66(L) 0.70 - 1.30 mg/dL LAB CHEMISTRY METHOD 03/13/2025 11:52 AM [facility] LAB eGFR 97 >=60 mL/min/1. 73m2 LAB CHEMISTRY METHOD 03/13/2025 11:52 AM [facility] LAB Comment:Calculation based on the Chronic Kidney Disease Epidemiology Collaboration (CKD-EPI) equation refit without adjustment for race. BUN/Creatinine Ratio 19.7 LAB CHEMISTRY METHOD 03/13/2025 11:52 AM EDT [facility] LAB Calcium 9.3 8.5 - 10.5 mg/dL LAB CHEMISTRY METHOD 03/13/2025 11:52 AM EDT [facility] Blood Venous blood specimen / Unknown Venipuncture / Unknown 03/13/2025 6:21 AM EDT 03/13/2025 10:30 AM EDT us Smitha Mcbride MD LAB BLOOD ORDERABLES Fin al Result [facility] [address] [place] [address], documented in this encounter Visit Diagnoses Diagnosis Rhabdomyolysis documented in this encounter Additional Health Concerns Infection Onset Date Last Indicated Resolved Time VRE 07/31/2025 07/31/2025 Assessment Noted Time PHQ-9 Depression Total Score: 0 01/17/20 25 8:47 AM EDT A fall risk assessment has been complete d for the patient 01/16/2025 8:47 AM EDT documented as of this encounter Care Teams Boat Oar Maker Relationship Specialty Start Date End Date Av Weathers PA [address] [place] [id number] PCP - General Internal Medicine 12/12/20 documented as of this encounter
--- OUTSIDE RECORDS SUMMARY | 2025-09-20 15:02 | XMS_ITS | Clinical Summary ---
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 01/15/2022 STEMI (ST elevation myocardial infarction) 12/27 Impaired fasting blood sugar 12/12/2020 Onychomycosis 07/14/2018 Anxiety and depression 01/06/2018 Right hydrocele 01/25/2016 Bunion 02/09/2014 Elevated PSA 02/09/2014 HTN (hypertension) 05/14/2012 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 Encounters Date Type Department Care Team Description 09/12/2025 Lab Requisition [facility] [address] [place] [id number] Smitha Mcbride MD Essential (primary) hypertension; Unspecified atrial fibrillation (CMS/HCC V24, CMS/HCC V28); Personal history of transient ischemic attack (TIA), and 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 residual deficits 08/28/2025 Lab Requisition [facility] - Main Lab [address] [place] [phone] Smitha Mcbride MD Benign prostatic hyperplasia without lower urinary tract symptoms 08/01/2025 Lab Requisition [facility] [address] [place] [phone] Smitha Mcbride MD Hematuria, unspecified 07/04/2025 Telephone Adult Medicine [address] [phone] Av Weathers PA from Last 3 Months Immunizations Immunization Administration [...] your loved ones. For example, child care aide or elderly care for an older [...] on file Sexual Orientation Not on file Last Filed Vital Signs Vital Sign Reading [...] 01/16/2026 01/16/2025 Hypertension/CHF/CAD Annual BMP Blood Test 09/13/2026 09/13/2025, 06/15/2025, 06/14/2025, Additional history exists Cholesterol Screening (Lipid Panel) [...] Procedure Name Priority Date/Time Associated Diagnosis Comments COMPREHENSIVE METABOLIC PANEL Routine 09/13/2025 5:40 AM EST Essential (primary) hypertension Unspecified atrial fibrillation (CMS/HCC V24, CMS/HCC V28) Personal history of transient ischemic attack (TIA), and 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 residual deficits COMPLETE BLOOD COUNT Routine 09/13/2025 5:40 AM EST Essential (primary) hypertension Unspecified atrial fibrillation (CMS/HCC V24, CMS/HCC V28) Personal history of transient ischemic attack (TIA), and 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 residual deficits PSA TOTAL, FREE AND COMPLEXED, DIAGNOSTIC Routine 08/28/2025 8:09 AM EST Benign prostatic hyperplasia without lower urinary tract symptoms URINALYSIS WITH REFLEX MICROSCOPIC Routine 07/31/2025 12:00 AM EDT Hematuria, unspecified URINALYSIS WITH REFLEX MICROSCOPIC Routine 07/31/2025 12:00 AM EDT Hematuria, unspecified CULTURE URINE Routine 07/31/2025 12:00 AM EDT Hematuria, unspecified LIPID PANEL Routine 07/13/2024 HEPATITIS C SCREENING Routine 11/06/2022 from Last 3 Months or Most Recently Relevant to Health Maintenance Results * (ABNORMAL) Complete blood count (09/13/2025 5:40 AM EST) WBC 10.3 4.8 - 10.8 K/[facility] LAB HEMETOLOGY METHOD 09/13/2025 11:13 AM EST [facility] RBC 4.40(L) 4.50 - 5.50 M/[facility] LAB HEMETOLOGY METHOD 09/13/2025 11:13 AM [facility] LAB Hemoglobin 13.4(L) 13.5 - 17.5 g/dL LAB HEMETOLOGY METHOD 09/13/2025 11:13 AM [facility] LAB Hematocrit 40.9(L) 42.0 - 54.0 % LAB HEMETOLOGY METHOD 09/13/2025 11:13 AM [facility] LAB MCV 93.4 79.0 - 98.0 FL LAB HEMETOLOGY METHOD 09/13/2025 11:13 AM [facility] LAB MCH 30.6 27.0 - 32.0 pcg LAB HEMETOLOGY METHOD 09/13/2025 11:13 AM [facility] LAB MCHC 32.8 32.0 - 37.0 g/dL LAB HEMETOLOGY METHOD 09/13/2025 11:13 AM [facility] LAB RDW 13.1 11.0 - 15.0 % LAB HEMETOLOGY METHOD 09/13/2025 11:13 AM [facility] LAB Platelets 285 130 - 400 K/mcL LAB HEMETOLOGY METHOD 09/13/2025 11:13 AM [facility] LAB MPV 10.1 7.0 - 11.0 FL LAB HEMETOLOGY METHOD 09/13/2025 11:13 AM [facility] LAB NRBC 0.0 <1.0 % LAB HEMETOLOGY METHOD 09/13/2025 11:13 AM [facility] LAB NRBC Absolute 0.00 <0.10 K/mcL LAB HEMETOLOGY METHOD 09/13/2025 11:13 AM [facility] Blood Venous blood specimen / Unknown Venipuncture / Unknown 09/13/2025 5:40 AM EST 09/13/2025 10:45 AM EST us Smitha Mcbride MD LAB BLOOD ORDERABLES Fin al Result [facility] [address] [place] [address], * (ABNORMAL) Comprehensive metabolic panel (09/13/2025 5:40 AM EST) Sodium 140 133 - 145 mmol/L 09/13/2025 12:03 PM [facility] Potassium 4.2 3.5 - 5.5 mmol/L 09/13/2025 12:03 PM [facility] Chloride 99 96 - 110 mmol/L 09/13/2025 12:03 PM [facility] CO2 31 21 - 32 mmol/L 09/13/2025 12:03 PM [facility] Anion Gap 10 3 - 11 09/13/2025 12:03 PM [facility] Glucose 110(H) 70 - 100 mg/dL 09/13/2025 12:03 PM [facility] BUN 16 5 - 25 mg/dL 09/13/2025 12:03 PM [facility] Creatinine 0.88 0.70 - 1.30 mg/dL 09/13/2025 12:03 PM [facility] eGFR 89 >=60 mL/min/1. 73m2 09/13/2025 12:03 PM [facility] Comment:Calculation based on the Chronic Kidney Disease Epidemiology Collaboration (CKD-EPI) equation refit without adjustment for race. BUN/Creatinine Ratio 18.2 09/13/2025 12:03 PM [facility] Calcium 9.0 8.5 - 10.5 mg/dL 09/13/2025 12:03 PM [facility] AST (SGOT) 19 10 - 42 unit/L 09/13/2025 12:03 PM [facility] ALT (SGPT) 15 10 - 60 unit/L 09/13/2025 12:03 PM [facility] Alkaline Phosphatase 101 42 - 121 unit/L 09/13/2025 12:03 PM [facility] Total Protein 6.9 6.0 - 8.0 g/dL 09/13/2025 12:03 PM [facility] Albumin 3.9 3.2 - 5.0 g/dL 09/13/2025 12:03 PM [facility] Total Bilirubin 0.6 0.0 - 1.4 mg/dL 09/13/2025 12:03 PM [facility] Blood Venous blood specimen / Unknown Venipuncture / Unknown 09/13/2025 5:40 AM EST 09/13/2025 10:45 AM EST us Smitha Mcbride MD LAB BLOOD ORDERABLES Fin al Result [facility] [address] [place] [address], * (ABNORMAL) PSA total, free and complexed (08/28/2025 8:09 AM EST) PSA 1.83 0.00 - 4.00 ng/mL 08/28/2025 11:26 AM [facility] PSA, Complexed 1.81 0.00 - 3.00 ng/mL 08/28/2025 11:26 AM [facility] PSA, Free 0.0 ng/mL 08/28/2025 11:26 AM [facility] PSA, Free Pct 0.0(L) >25.0 % 08/28/2025 11:26 AM [facility] Comment:Free PSA is a calcul ated value. The diagnostic usefulness of % free PSA has not been established in patients with Total PSA below 2.6 or above 10 ng/mL. Blood Venous blood specimen / Unknown Venipuncture / Unknown 08/28/2025 8:09 AM EST 08/28/2025 10:17 AM EST us Smitha Mcbride MD LAB BLOOD ORDERABLES Fin al Result [facility] [address] [place] [address], [place] [phone] * (ABNORMAL) Urinalysis with reflex microscopic (07/31/2025 12:00 AM EDT) Pathologist [facility] Specific [place] Urine 1.016 1.003 - 1.030 LAB URINALYSIS - AUTOMATED METHOD 08/01/2025 12:27 PM [facility] pH, Urine 6.5 5.0 - 8.0 pH LAB URINALYSIS - AUTOMATED METHOD 08/01/2025 12:27 PM [facility] Leukocytes, Urine Large(A) Negative LAB URINALYSIS - AUTOMATED METHOD 08/01/2025 12:27 PM [facility] Nitrite, Urine Negative Negative LAB URINALYSIS - AUTOMATED METHOD 08/01/2025 12:27 PM [facility] Protein, Urine 100(A) <=Trace mg/dL LAB URINALYSIS - AUTOMATED METHOD 08/01/2025 12:27 PM [facility] Glucose, Urine Negative Negative mg/dL LAB URINALYSIS - AUTOMATED METHOD 08/01/2025 12:27 PM [facility] Ketones, Urine Negative Negative mg/dL LAB URINALYSIS - AUTOMATED METHOD 08/01/2025 12:27 PM [facility] Urobilinogen , Urine 1.0 0.2 - 1.0 mg/dL LAB URINALYSIS - AUTOMATED METHOD 08/01/2025 12:27 PM [facility] Bilirubin, Urine Negative Negative LAB URINALYSIS - AUTOMATED METHOD 08/01/2025 12:27 PM [facility] Blood, Urine Large(A) Negative LAB URINALYSIS - AUTOMATED METHOD 08/01/2025 12:27 PM EDT [facility] RBC, Urine 300.0(H) 0 - 4 /HPF LAB URINALYSIS - AUTOMATED METHOD 08/01/2025 12:27 PM [facility] WBC, Urine 565.7(H) 0 - 4 /HPF LAB URINALYSIS - AUTOMATED METHOD 08/01/2025 12:27 PM [facility] Squamous Epithelial, Urine 18 0 - 60 /LPF LAB URINALYSIS - AUTOMATED METHOD 08/01/2025 12:27 PM [facility] Crystals, Urine LT CALCIUM OXALATE /LPF LAB URINALYSIS - AUTOMATED METHOD 08/01/2025 12:27 PM [facility] Bacteria, Urine Few(A) Negative /HPF LAB URINALYSIS - AUTOMATED METHOD 08/01/2025 12:27 PM [facility] Hyaline Casts, Urine 3.0 0 - 3 /LPF LAB URINALYSIS - AUTOMATED METHOD 08/01/2025 12:27 PM [facility] Urine Urine specimen obtained by clean catch procedure / Unknown Non-blood Collection / Unknown 07/31/2025 08/01/2025 11:04 AM EDT Smitha Mcbride MD LAB URINE ORDERABLES Fin al Result [facility] [address] [place] [address], * (ABNORMAL) Culture urine (07/31/2025 12:00 AM EDT) Culture, Urine 50,000-100,000 CFU/mL Providencia rettgeri(A) AZEB 08/04/2025 8:35 AM EDT [facility] Comment: The organism value for this result has been updated. These results have been appended to the previously preliminary verified report. This is an edited result. Previous organism was Gram negative bacilli on 08/03/2025 at 1302 EDT. Culture, Urine 10,000-49,000 CFU/mL Vancomycin resistant Enterococcus faecalis(A) AZEB 08/04/2025 8:35 AM EDT [facility] Comment: The organism value for this [...] Enterococcus faecalis Nitrofurantoin AZEB 32 ug/ml: Susceptible Smitha Mcbride MD LAB MICROBIOLOGY - GENER AL ORDERABLES Final Result [facility] [address] [place] [address], * (ABNORMAL) Lipid panel (07/13/2024) LDL/HDL Ratio 2 0 - 4 Triglycerides 98 0 - 150 mg/dL Cholesterol 202(A) 0 - 200 mg/dL HDL 87 >=40 mg/dL LDL Cholesterol 96 0 - 100 mg/dL Blood Venous blood specimen / Unknown Historical Provider LAB BLOOD ORDERABLES Bobbi l Result * Hepatitis C Screening (11/06/2022) Pathologist [facility] Hepatitis C Screening abstracted Historical Provider HEALTH MAINTENANCE Final Result from Last 3 Months or Most Recently Relevant to Health Maintenance Additional Health Concerns Infection Onset Date Last 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
--- OUTSIDE RECORDS SUMMARY | 2025-09-20 15:02 | XMS_ITS | Encounter Summary ---
Author Organization [facility] Address [address] [place] [address] Care Team Providers Care Soda Fountain Clerk Name Role Phone Av Weathers Primary Care Provider [phone] [phone] Encounter Details Date Type Department Care Team (Late st Contact Info) Description 09/12/2025 Lab Requisition [facility] - Main Lab [address] [facility] [place] [address] Smitha Mcbride MD [address] [id number] Essential (primary) hypertension; Unspecified atrial fibrillation (CMS/HCC [...] your loved ones. For example, early childhood specialist or elderly care for an older [...] Associated Diagnosis Comments COMPLETE BLOOD COUNT Routine 09/13/2025 5:40 AM EST Essential (primary) hypertension Unspecified atrial fibrillation (CMS/HCC V24, CMS/HCC V28) Personal history of transient ischemic attack (TIA), and 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 residual deficits COMPREHENSIVE METABOLIC PANEL Routine 09/13/2025 5:40 AM EST Essential (primary) hypertension Unspecified atrial fibrillation (CMS/HCC V24, CMS/HCC V28) Personal history of transient ischemic attack (TIA), and 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 residual deficits documented in this encounter Results * (ABNORMAL) Comprehensive metabolic panel (09/13/2025 5:40 AM EST) Sodium 140 133 - 145 mmol/L 09/13/2025 12:03 PM [facility] Potassium 4.2 3.5 - 5.5 mmol/L 09/13/2025 12:03 PM [facility] Chloride 99 96 - 110 mmol/L 09/13/2025 12:03 PM [facility] CO2 31 21 - 32 mmol/L 09/13/2025 12:03 PM [facility] Anion Gap 10 3 - 11 09/13/2025 12:03 PM [facility] Glucose 110(H) 70 - 100 mg/dL 09/13/2025 12:03 PM [facility] BUN 16 5 - 25 mg/dL 09/13/2025 12:03 PM [facility] Creatinine 0.88 0.70 - 1.30 mg/dL 09/13/2025 12:03 PM [facility] eGFR 89 >=60 mL/min/1. 73m2 09/13/2025 12:03 PM [facility] Comment:Calculation based on the Chronic Kidney Disease Epidemiology Collaboration (CKD-EPI) equation refit without adjustment for race. BUN/Creatinine Ratio 18.2 09/13/2025 12:03 PM [facility] Calcium 9.0 8.5 - 10.5 mg/dL 09/13/2025 12:03 PM [facility] AST (SGOT) 19 10 - 42 unit/L 09/13/2025 12:03 PM [facility] ALT (SGPT) 15 10 - 60 unit/L 09/13/2025 12:03 PM [facility] Alkaline Phosphatase 101 42 - 121 unit/L 09/13/2025 12:03 PM [facility] Total Protein 6.9 6.0 - 8.0 g/dL 09/13/2025 12:03 PM [facility] Albumin 3.9 3.2 - 5.0 g/dL 09/13/2025 12:03 PM [facility] Total Bilirubin 0.6 0.0 - 1.4 mg/dL 09/13/2025 12:03 PM [facility] Blood Venous blood specimen / Unknown Venipuncture / Unknown 09/13/2025 5:40 AM EST 09/13/2025 10:45 AM EST Smitha Mcbride MD LAB BLOOD ORDERABLES Fin al Result [facility] [address] [place] [address], * (ABNORMAL) Complete blood count (09/13/2025 5:40 AM EST) WBC 10.3 4.8 - 10.8 K/mcL LAB HEMETOLOGY METHOD 09/13/2025 11:13 AM [facility] RBC 4.40(L) 4.50 - 5.50 M/mcL LAB HEMETOLOGY METHOD 09/13/2025 11:13 AM [facility] Hemoglobin 13.4(L) 13.5 - 17.5 g/dL LAB HEMETOLOGY METHOD 09/13/2025 11:13 AM [facility] Hematocrit 40.9(L) 42.0 - 54.0 % LAB HEMETOLOGY METHOD 09/13/2025 11:13 AM [facility] MCV 93.4 79.0 - 98.0 FL LAB HEMETOLOGY METHOD 09/13/2025 11:13 AM EST [facility] MCH 30.6 27.0 - 32.0 pcg LAB HEMETOLOGY METHOD 09/13/2025 11:13 AM [facility] MCHC 32.8 32.0 - 37.0 g/dL LAB HEMETOLOGY METHOD 09/13/2025 11:13 AM EST [facility] RDW 13.1 11.0 - 15.0 % LAB HEMETOLOGY METHOD 09/13/2025 11:13 AM [facility] Platelets 285 130 - 400 K/mcL LAB HEMETOLOGY METHOD 09/13/2025 11:13 AM [facility] MPV 10.1 7.0 - 11.0 FL LAB HEMETOLOGY METHOD 09/13/2025 11:13 AM [facility] NRBC 0.0 <1.0 % LAB HEMETOLOGY METHOD 09/13/2025 11:13 AM [facility] NRBC Absolute 0.00 <0.10 K/mcL LAB HEMETOLOGY METHOD 09/13/2025 11:13 AM [facility] Blood Venous blood specimen / Unknown Venipuncture / Unknown 09/13/2025 5:40 AM EST 09/13/2025 10:45 AM EST us Smitha Mcbride MD LAB BLOOD ORDERABLES Fin al Result [facility] [address] [place] [address], documented in this encounter Visit Diagnoses Diagnosis Essential (primary) hypertension Unspecified essential hypertension Unspecified atrial fibrillation (CMS/HCC V24, CMS/HCC [...] documented as of this encounter Care Teams Soda Fountain Clerk Relationship Specialty Start Date End Date Av Weathers PA [address] [place] [address] PCP - General Internal Medicine 12/12/20 documented as of this encounter
--- OUTSIDE RECORDS SUMMARY | 2025-09-20 15:02 | XMS_ITS | Encounter Summary ---
Author Organization [facility] Address [address] [place] [address] Care Team Providers Care Class A Regional Drivers Name Role Phone Av Weathers Primary Care Provider [phone] [phone] Encounter Details Date Type Department Care Team (Late st Contact Info) Description 03/17/2025 Lab Requisition [facility] - Main Lab [address] [facility] [place] [address] Smitha Mcbride MD [address] [id number] Rhabdomyolysis Social History Tobacco Use Types Packs/Day [...] your loved ones. For example, early childhood education coordinator or elderly care for an [...] AM EDT) WBC 10.0 4.8 - 10.8 K/[facility] LAB HEMETOLOGY METHOD 03/20/2025 11:03 AM [...] Fin al Result [facility] [address] [place] [address], [place] [phone] * (ABNORMAL) Basic metabolic panel (03/20/2025 5:51 AM EDT) Pathologist [facility] Sodium 141 133 - 145 mmol/L LAB [...] LAB CHEMISTRY METHOD 03/20/2025 1:01 PM EDT [facility] Calcium 8.6 8.5 - 10.5 mg/dL LAB CHEMISTRY METHOD 03/20/2025 1:01 PM EDT [facility] Blood Venous blood specimen / Unknown Venipuncture / Unknown 03/20/2025 5:51 AM EDT 03/20/2025 10:45 AM EDT us Smitha Mcbride MD LAB BLOOD ORDERABLES Fin al Result [facility] [address] [place] [address], documented in this encounter Visit Diagnoses Diagnosis Rhabdomyolysis documented in this encounter Additional Health Concerns Infection Onset Date Last Indicated Resolved Time 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
--- OUTSIDE RECORDS SUMMARY | 2025-09-20 15:02 | XMS_ITS | Encounter Summary ---
Author Organization [facility] Address [address] [place] [address] Care Team Providers Care Physical Medicine Specialist Name Role Phone Av Weathers Primary Care Provider +1 [phone] Encounter Details Date Type Department Care Team (Late st Contact Info) Description 03/09/2025 Lab Requisition [facility] - Main Lab 299 [facility] [place] [address] Smitha Mcbride MD [address] [phone] Rhabdomyolysis Social History Tobacco Use Types Packs/Day [...] care for your loved ones. For example, childrens club attendant or elderly care for an older [...] auto differential (03/09/2025 5:13 AM EDT) Pathologist [facility] WBC 12.3(H) 4.8 - 10.8 K/mcL LAB HEMETOLOGY METHOD 03/09/2025 8:02 AM [facility] LAB RBC 3.90(L) 4.50 - 5.50 M/mcL LAB HEMETOLOGY METHOD 03/09/2025 8:02 AM [facility] LAB Hemoglobin 12.6(L) 13.5 - 17.5 g/dL LAB HEMETOLOGY METHOD 03/09/2025 8:02 AM [facility] LAB Hematocrit 37.8(L) 42.0 - 54.0 % LAB HEMETOLOGY METHOD 03/09/2025 8:02 AM [facility] LAB MCV 97.7 79.0 - 98.0 FL LAB HEMETOLOGY METHOD 03/09/2025 8:02 AM [facility] LAB MCH 32.6(H) 27.0 - 32.0 pcg LAB HEMETOLOGY METHOD 03/09/2025 8:02 AM [facility] LAB MCHC 33.3 32.0 - 37.0 g/dL LAB HEMETOLOGY METHOD 03/09/2025 8:02 AM [facility] LAB RDW 11.9 11.0 - 15.0 % LAB HEMETOLOGY METHOD 03/09/2025 8:02 AM [facility] LAB Platelets 301 130 - 400 K/mcL LAB HEMETOLOGY METHOD 03/09/2025 8:02 AM [facility] LAB MPV 10.2 7.0 - 11.0 FL LAB HEMETOLOGY METHOD 03/09/2025 8:02 AM [facility] LAB NRBC 0.0 <1.0 % LAB HEMETOLOGY METHOD 03/09/2025 8:02 AM [facility] LAB NRBC Absolute 0.00 <0.10 K/mcL LAB HEMETOLOGY METHOD 03/09/2025 8:02 AM [facility] Neutrophils Relative 73.5 % LAB HEMETOLOGY METHOD 03/09/2025 8:02 AM [facility] Lymphocytes Relative 17.0 % LAB HEMETOLOGY METHOD 03/09/2025 8:02 AM [facility] Monocytes Relative 6.8 % LAB HEMETOLOGY METHOD 03/09/2025 8:02 AM [facility] Eosinophils Relative 2.1 % LAB HEMETOLOGY METHOD 03/09/2025 8:02 AM [facility] Basophils Relative 0.3 % LAB HEMETOLOGY METHOD 03/09/2025 8:02 AM [facility] Immature Granulocytes Relative 0.3 % LAB HEMETOLOGY METHOD 03/09/2025 8:02 AM [facility] Neutrophils Absolute 9.01(H) 1.50 - 7.00 K/mcL LAB HEMETOLOGY METHOD 03/09/2025 8:02 AM [facility] Lymphocytes Absolute 2.09 1.00 - 5.00 K/mcL LAB HEMETOLOGY METHOD 03/09/2025 8:02 AM [facility] Monocytes Absolute 0.83 0.20 - 1.00 K/mcL LAB HEMETOLOGY METHOD 03/09/2025 8:02 AM [facility] Eosinophils Absolute 0.26 0.00 - 0.50 K/mcL LAB HEMETOLOGY METHOD 03/09/2025 8:02 AM [facility] Basophils Absolute 0.04 0.00 - 0.20 K/mcL LAB HEMETOLOGY METHOD 03/09/2025 8:02 AM [facility] Immature Granulocytes Absolute 0.04(H) 0.00 - 0.03 K/mcL LAB HEMETOLOGY METHOD 03/09/2025 8:02 AM [facility] Blood Venous blood specimen / Unknown Venipuncture / Unknown 03/09/2025 5:13 AM EDT 03/09/2025 7:25 AM EDT Smitha Mcbride MD LAB BLOOD ORDERABLES Fin al Result [facility] [address] [place] [address], * (ABNORMAL) Basic metabolic panel (03/09/2025 5:13 AM EDT) Sodium 138 133 - 145 mmol/L LAB CHEMISTRY METHOD 03/09/2025 8:52 AM [facility] Potassium 3.6 3.5 - 5.5 mmol/L LAB CHEMISTRY METHOD 03/09/2025 8:52 AM [facility] Chloride 103 96 - 110 mmol/L LAB CHEMISTRY METHOD 03/09/2025 8:52 AM [facility] CO2 30 21 - 32 mmol/L LAB CHEMISTRY METHOD 03/09/2025 8:52 AM [facility] Anion Gap 5 3 - 11 LAB CHEMISTRY METHOD 03/09/2025 8:52 AM [facility] Glucose 129(H) 70 - 100 mg/dL LAB CHEMISTRY METHOD 03/09/2025 8:52 AM [facility] BUN 14 5 - 25 mg/dL LAB CHEMISTRY METHOD 03/09/2025 8:52 AM [facility] Creatinine 0.66(L) 0.70 - 1.30 mg/dL LAB CHEMISTRY METHOD 03/09/2025 8:52 AM [facility] LAB eGFR 97 >=60 mL/min/1. 73m2 LAB CHEMISTRY METHOD 03/09/2025 8:52 AM [facility] LAB Comment:Calculation based on the Chronic Kidney Disease Epidemiology Collaboration (CKD-EPI) equation refit without adjustment for race. BUN/Creatinine Ratio 21.2 LAB CHEMISTRY METHOD 03/09/2025 8:52 AM EDT [facility] Calcium 9.3 8.5 - 10.5 mg/dL LAB CHEMISTRY METHOD 03/09/2025 8:52 AM EDT [facility] Blood Venous blood specimen / Unknown Venipuncture / Unknown 03/09/2025 5:13 AM EDT 03/09/2025 7:25 AM EDT us Smitha Mcbride MD LAB BLOOD ORDERABLES Fin al Result [facility] [address] [place] [address], documented in this encounter Visit Diagnoses Diagnosis Rhabdomyolysis documented in this encounter Additional Health Concerns Infection Onset Date Last Indicated Resolved Time 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
--- OUTSIDE RECORDS SUMMARY | 2025-09-20 15:03 | XMS_ITS | Encounter Summary ---
Author Organization [facility] Address [address] [place] [address] Care Team Providers Care Sequins Stringer Name Role Phone Av Weathers Primary Care Provider +1 [phone] Encounter Details Date Type Department Care Team (Late st Contact Info) Description 05/07/2025 Lab Requisition [facility] - Main Lab 299 [facility] [place] [address] Smitha Mcbride MD [address] [phone] Rhabdomyolysis Social History Tobacco Use Types Packs/Day [...] care for your loved ones. For example, director child abuse therapy or elderly care for an older adult? [...] AM EDT) WBC 8.9 4.8 - 10.8 K/[facility] LAB HEMETOLOGY METHOD 05/08/2025 1:37 PM [facility] RBC 3.90(L) 4.50 - 5.50 M/mcL LAB HEMETOLOGY METHOD 05/08/2025 1:37 PM [facility] Hemoglobin 12.2(L) 13.5 - 17.5 g/dL LAB HEMETOLOGY METHOD 05/08/2025 1:37 PM [facility] Hematocrit 37.5(L) 42.0 - 54.0 % LAB HEMETOLOGY METHOD 05/08/2025 1:37 PM [facility] MCV 95.9 79.0 - 98.0 FL LAB HEMETOLOGY METHOD 05/08/2025 1:37 PM [facility] MCH 31.2 27.0 - 32.0 pcg LAB HEMETOLOGY METHOD 05/08/2025 1:37 PM [facility] MCHC 32.5 32.0 - 37.0 g/dL LAB HEMETOLOGY METHOD 05/08/2025 1:37 PM [facility] RDW 12.5 11.0 - 15.0 % LAB HEMETOLOGY METHOD 05/08/2025 1:37 PM [facility] Platelets 303 130 - 400 K/mcL LAB HEMETOLOGY METHOD 05/08/2025 1:37 PM [facility] MPV 9.9 7.0 - 11.0 FL LAB HEMETOLOGY METHOD 05/08/2025 1:37 PM [facility] NRBC 0.0 <1.0 % LAB HEMETOLOGY METHOD 05/08/2025 1:37 PM [facility] NRBC Absolute 0.00 <0.10 K/mcL LAB HEMETOLOGY METHOD 05/08/2025 1:37 PM [facility] Blood Venous blood specimen / Unknown Venipuncture / Unknown 05/08/2025 5:13 AM EDT 05/08/2025 10:54 AM EDT us Smitha Mcbride MD LAB BLOOD ORDERABLES Fin al Result [facility] [address] [place] [address], [place] [phone] * Basic metabolic panel (05/08/2025 5:13 AM EDT) Sodium 140 133 - 145 mmol/L LAB CHEMISTRY METHOD 05/08/2025 12:20 PM [facility] Potassium 3.7 3.5 - 5.5 mmol/L LAB CHEMISTRY METHOD 05/08/2025 12:20 PM [facility] Chloride 103 96 - 110 mmol/L LAB CHEMISTRY METHOD 05/08/2025 12:20 PM [facility] CO2 31 21 - 32 mmol/L LAB CHEMISTRY METHOD 05/08/2025 12:20 PM [facility] Anion Gap 6 3 - 11 LAB CHEMISTRY METHOD 05/08/2025 12:20 PM [facility] Glucose 93 70 - 100 mg/dL LAB CHEMISTRY METHOD 05/08/2025 12:20 PM [facility] BUN 14 5 - 25 mg/dL LAB CHEMISTRY METHOD 05/08/2025 12:20 PM [facility] Creatinine 0.89 0.70 - 1.30 mg/dL LAB CHEMISTRY METHOD 05/08/2025 12:20 PM [facility] eGFR 88 >=60 mL/min/1. 73m2 LAB CHEMISTRY METHOD 05/08/2025 12:20 PM [facility] Comment:Calculation based on the Chronic Kidney Disease Epidemiology Collaboration (CKD-EPI) equation refit without adjustment for race. 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
--- OUTSIDE RECORDS SUMMARY | 2025-09-20 15:03 | XMS_ITS | Encounter Summary ---
Author Organization [facility] Address [address] [place] [address] Care Team Providers Care Elementary Ell Teacher Name Role Phone Av Weathers Primary Care Provider +1 [phone] Encounter Details Date Type Department Care Team (Late st Contact Info) Description 02/25/2025 Lab Requisition [facility] - Main Lab 299 [facility] [place] [address] Smitha Mcbride MD [address] [phone] Elevated white blood cell count, unspecified Social [...] for your loved ones. For example, children's tutor nursery or elderly care for an older adult? [...] Complete blood count (02/25/2025 5:47 AM EDT) [facility] Signature WBC 12.5(H) 4.8 - 10.8 K/[facility] LAB HEMETOLOGY METHOD 02/25/2025 11:50 AM EDT [facility] LAB RBC 3.90(L) 4.50 - 5.50 M/mcL LAB HEMETOLOGY METHOD 02/25/2025 11:50 AM [facility] LAB Hemoglobin 12.6(L) 13.5 - 17.5 g/dL LAB HEMETOLOGY METHOD 02/25/2025 11:50 AM [facility] LAB Hematocrit 38.4(L) 42.0 - 54.0 % LAB HEMETOLOGY METHOD 02/25/2025 11:50 AM [facility] LAB MCV 98.2(H) 79.0 - 98.0 FL LAB HEMETOLOGY METHOD 02/25/2025 11:50 AM [facility] LAB MCH 32.2(H) 27.0 - 32.0 pcg LAB HEMETOLOGY METHOD 02/25/2025 11:50 AM [facility] LAB MCHC 32.8 32.0 - 37.0 g/dL LAB HEMETOLOGY METHOD 02/25/2025 11:50 AM [facility] LAB RDW 12.0 11.0 - 15.0 % LAB HEMETOLOGY METHOD 02/25/2025 11:50 AM [facility] LAB Platelets 368 130 - 400 K/mcL LAB HEMETOLOGY METHOD 02/25/2025 11:50 AM [facility] LAB MPV 10.1 7.0 - 11.0 FL LAB HEMETOLOGY METHOD 02/25/2025 11:50 AM [facility] LAB NRBC 0.0 <1.0 % LAB HEMETOLOGY METHOD 02/25/2025 11:50 AM [facility] LAB NRBC Absolute 0.00 <0.10 K/mcL LAB HEMETOLOGY METHOD 02/25/2025 11:50 AM [facility] LAB Blood Venous blood specimen / Unknown Venipuncture / Unknown 02/25/2025 5:47 AM EDT 02/25/2025 11:30 AM EDT us Smitha Mcbride MD LAB BLOOD ORDERABLES Fin al Result [facility] [address] [place] [address], documented in this encounter Visit Diagnoses Diagnosis [...] documented as of this encounter Care Teams Elementary Ell Teacher Relationship Specialty Start Date End Date Av Weathers PA [address] [place] [address] PCP - General Internal Medicine 12/12/20 documented as of this encounter
--- OUTSIDE RECORDS SUMMARY | 2025-09-20 15:03 | XMS_ITS | Encounter Summary ---
Author Organization [facility] Address [address] [place] [address] Care Team Providers Care Interstate Planner Name Role Phone Av Weathers Primary Care Provider +1 [phone] Encounter Details Date Type Department Care Team (Late st Contact Info) Description 02/06/2025 Lab Requisition [facility] - Main Lab 299 [facility] [place] [address] Smitha Mcbride MD [address] [phone] Unspecified atrial fibrillation (CMS/HCC V24, CMS/HCC V28) [...] for your loved ones. For example, children's counselor or elderly care for an older [...] LAB CHEMISTRY METHOD 02/06/2025 2:39 PM EDT [facility] Alkaline Phosphatase 88 42 - 121 unit/L LAB CHEMISTRY METHOD 02/06/2025 2:39 PM EDT [facility] Total Protein 6.1 6.0 - 8.0 g/dL LAB CHEMISTRY METHOD 02/06/2025 2:39 PM EDT [facility] Albumin 2.8(L) 3.2 - 5.0 g/dL LAB CHEMISTRY METHOD 02/06/2025 2:39 PM EDT [facility] LAB Total Bilirubin 0.5 0.0 - 1.4 mg/dL LAB CHEMISTRY METHOD 02/06/2025 2:39 PM EDT [facility] LAB Blood Venous blood specimen / Unknown Venipuncture / Unknown 02/06/2025 8:06 AM EDT 02/06/2025 12:46 PM EDT Smitha Mcbride MD LAB BLOOD ORDERABLES Fin al Result [facility] LAB [address] [place] [address], * (ABNORMAL) Complete blood count (02/06/2025 8:06 AM EDT) WBC 9.5 4.8 - 10.8 K/[facility] LAB HEMETOLOGY METHOD 02/06/2025 2:15 PM EDT [facility] LAB RBC 4.00(L) 4.50 - 5.50 M/[facility] LAB HEMETOLOGY METHOD 02/06/2025 2:15 PM EDT [facility] LAB Hemoglobin 13.3(L) 13.5 - 17.5 g/dL LAB HEMETOLOGY METHOD 02/06/2025 2:15 PM EDT [facility] LAB Hematocrit 39.9(L) 42.0 - 54.0 % LAB HEMETOLOGY METHOD 02/06/2025 2:15 PM EDT [facility] LAB MCV 99.0(H) 79.0 - 98.0 FL LAB HEMETOLOGY METHOD 02/06/2025 2:15 PM EDT [facility] LAB MCH 33.0(H) 27.0 - 32.0 pcg LAB HEMETOLOGY METHOD 02/06/2025 2:15 PM EDT [facility] LAB MCHC 33.3 32.0 - 37.0 g/dL LAB HEMETOLOGY METHOD 02/06/2025 2:15 PM EDT [facility] LAB RDW 12.7 11.0 - 15.0 % LAB HEMETOLOGY METHOD 02/06/2025 2:15 PM EDT [facility] LAB Platelets 262 130 - 400 K/mcL LAB HEMETOLOGY METHOD 02/06/2025 2:15 PM EDT [facility] LAB MPV 10.4 7.0 - 11.0 FL LAB HEMETOLOGY METHOD 02/06/2025 2:15 PM EDT [facility] LAB NRBC 0.0 <1.0 % LAB HEMETOLOGY METHOD 02/06/2025 2:15 PM EDT [facility] LAB NRBC Absolute 0.00 <0.10 K/mcL LAB HEMETOLOGY METHOD 02/06/2025 2:15 PM EDT [facility] LAB Blood Venous blood specimen / Unknown Venipuncture / Unknown 02/06/2025 8:06 AM EDT 02/06/2025 12:46 PM EDT us Smitha Mcbride MD LAB BLOOD ORDERABLES Fin al Result [facility] LAB [address] [place] [address], documented in this encounter Visit Diagnoses Diagnosis [...] documented as of this encounter Care Teams Interstate Planner Relationship Specialty Start Date End Date Av Weathers PA [address] [place] [address] PCP - General Internal Medicine 12/12/20 documented as of this encounter
--- OUTSIDE RECORDS SUMMARY | 2025-09-20 15:03 | XMS_ITS | Encounter Summary ---
Author Organization [facility] Address [address] [place] [address] Care Team Providers Care Melter Supervisor Open Hearth Furnace Name Role Phone Av Weathers Primary Care Provider +1 [phone] Encounter Details Date Type Department Care Team (Late st Contact Info) Description 03/31/2025 Lab Requisition [facility] - Main Lab 299 [facility] [place] [address] Smitha Mcbride MD [address] [phone] Rhabdomyolysis Social History Tobacco Use Types Packs/Day [...] AM EDT) WBC 9.7 4.8 - 10.8 K/[facility] LAB HEMETOLOGY METHOD 04/03/2025 10:54 AM [facility] LAB RBC 3.90(L) 4.50 - 5.50 M/mcL LAB HEMETOLOGY METHOD 04/03/2025 10:54 AM [facility] LAB Hemoglobin 12.3(L) 13.5 - 17.5 g/dL LAB HEMETOLOGY METHOD 04/03/2025 10:54 AM [facility] LAB Hematocrit 37.8(L) 42.0 - 54.0 % LAB HEMETOLOGY METHOD 04/03/2025 10:54 AM [facility] LAB MCV 97.4 79.0 - 98.0 FL LAB HEMETOLOGY METHOD 04/03/2025 10:54 AM [facility] LAB MCH 31.7 27.0 - 32.0 pcg LAB HEMETOLOGY METHOD 04/03/2025 10:54 AM [facility] LAB MCHC 32.5 32.0 - 37.0 g/dL LAB HEMETOLOGY METHOD 04/03/2025 10:54 AM [facility] LAB RDW 12.2 11.0 - 15.0 % LAB HEMETOLOGY METHOD 04/03/2025 10:54 AM [facility] LAB Platelets 304 130 - 400 K/mcL LAB HEMETOLOGY METHOD 04/03/2025 10:54 AM [facility] LAB MPV 10.1 7.0 - 11.0 FL LAB HEMETOLOGY METHOD 04/03/2025 10:54 AM [facility] LAB NRBC 0.0 <1.0 % LAB HEMETOLOGY METHOD 04/03/2025 10:54 AM [facility] LAB NRBC Absolute 0.00 <0.10 K/mcL LAB HEMETOLOGY METHOD 04/03/2025 10:54 AM [facility] LAB Blood Venous blood specimen / Unknown Venipuncture / Unknown 04/03/2025 6:11 AM EDT 04/03/2025 10:15 AM EDT us Smitha Mcbride MD LAB BLOOD ORDERABLES Fin al Result [facility] [address] [place] [address], [place] [phone] * Basic metabolic panel (04/03/2025 6:11 AM EDT) Pathologist [facility] Sodium 142 133 - 145 mmol/L LAB CHEMISTRY METHOD 04/03/2025 11:40 AM [facility] LAB Potassium 3.9 3.5 - 5.5 mmol/L LAB CHEMISTRY METHOD 04/03/2025 11:40 AM [facility] LAB Chloride 103 96 - 110 mmol/L LAB CHEMISTRY METHOD 04/03/2025 11:40 AM [facility] LAB CO2 30 21 - 32 mmol/L LAB CHEMISTRY METHOD 04/03/2025 11:40 AM [facility] LAB Anion Gap 9 3 - 11 LAB CHEMISTRY METHOD 04/03/2025 11:40 AM [facility] LAB Glucose 93 70 - 100 mg/dL LAB CHEMISTRY METHOD 04/03/2025 11:40 AM [facility] LAB BUN 8 5 - 25 mg/dL LAB CHEMISTRY METHOD 04/03/2025 11:40 AM [facility] LAB Creatinine 0.75 0.70 - 1.30 mg/dL LAB CHEMISTRY METHOD 04/03/2025 11:40 AM [facility] LAB eGFR 93 >=60 mL/min/1. 73m2 LAB CHEMISTRY METHOD 04/03/2025 11:40 AM [facility] LAB Comment:Calculation based on the Chronic Kidney Disease Epidemiology Collaboration (CKD-EPI) equation refit without adjustment for race. 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
--- OUTSIDE RECORDS SUMMARY | 2025-09-20 15:03 | XMS_ITS | Encounter Summary ---
Author Organization [facility] Address [address] [place] [address] Care Team Providers Care Hotel Reservation Agent Name Role Phone Av Weathers Primary Care Provider [phone] [phone] Encounter Details Date Type Department Care Team (Late st Contact Info) Description 03/24/2025 Lab Requisition [facility] - Main Lab 299 [facility] [place] [phone] Smitha Mcbride MD [address] [id number] Rhabdomyolysis; Anemia, unspecified; Other disorders of electrolyte [...] CT,[place] IgE (03/27/2025 6:15 AM EDT) Pathologist [facility] Alternaria alternata, IgE <0.10 <0.10 kU/L 03/29/2025 [...] 03/29/2025 2:16 PM EDT [facility] Cockroach, [place], IgE 0.10 <0.10 kU/L 03/29/2025 2:16 PM EDT [facility] Cockroach, [place] Class CLASS 0/1 03/29/2025 2:16 PM EDT [facility] [place], IgE 0.16(H) <0.10 kU/L 03/29/2025 2:16 PM EDT [facility] [place] Class CLASS 0/1 03/29/20 2:16 PM EDT [...] 03/29/2025 2:16 PM EDT [facility] [place]), IgE <0.10 <0.10 kU/L 03/29/2025 2:16 PM EDT [facility] [place]) Class CLASS 0 03/29/2025 2:16 PM EDT [facility] [place], IgE <0.10 <0.10 kU/L 03/29/2025 2:16 PM EDT [facility] [place], [place] Class CLASS 0 03/29/2025 [...] 0 03/29/2025 2:16 PM EDT [facility] [place], IgE <0.10 <0.10 kU/L 03/29/2025 2:16 PM EDT [facility] [place] Class CLASS 0 03/29/2025 2:16 PM EDT [facility] [place], IgE <0.10 <0.10 kU/L 03/29/2025 2:16 PM EDT [facility] [place] Class CLASS 0 03/29/2025 2:16 PM EDT [...] 03/29/2025 2:16 PM EDT [facility] [place], IgE <0.10 <0.10 kU/L 03/29/2025 2:16 PM EDT [facility] [place] Class CLASS 0 2024 2:16 PM EDT [facility] [place], IgE <0.10 <0.10 kU/L 03/29/2025 2:16 PM EDT [facility] [place] Class CLASS 0 03/29 2:16 PM EDT [facility] [place], IgE <0.10 <0.10 kU/L 03/29/2025 2:16 PM EDT [facility] [place] Class CLASS 0 025 2:16 PM [...] >100.0 Very High Level Test performed at [facility], [address], [place] [address] Juanita Moseley MD, PhD - Home Service Advisor Blood Venous blood specimen / Unknown Venipuncture / Unknown 03/27/2025 6:15 AM EDT 03/27/2025 10:58 AM EDT us Smitha Mcbride MD LAB BLOOD ORDERABLES Fin al Result [facility] [address] [place] [address] * (ABNORMAL) Allergen, national food profile IGE (03/27/2025 6:15 AM EDT) [place], IgE <0.10 <0.10 kU/L 03/29/2025 2:16 PM EDT [facility] [place] Class CLASS 0 03/29/2025 2:16 PM EDT [...] 0 03/29/2025 2:16 PM EDT [facility] [place], IgE <0.10 <0.10 kU/L 03/29/2025 2:16 PM EDT [facility] [place] Class CLASS 0 03/29/2025 2:16 PM EDT [...] 0 03/29/2025 2:16 PM EDT [facility] [place], IgE <0.10 <0.10 kU/L 03/29/2025 2:16 PM EDT [facility] [place] Class CLASS 0 03/29/2025 2:16 PM EDT [facility] [place], IgE 0.11(H) <0.10 kU/L 03/29/2025 2:16 PM EDT [facility] [place] Class CLASS 0/1 03/29/2025 2:16 PM EDT [facility] IgE 517.0(H) <114.0 IU/mL 03/29/2025 2:16 PM EDT [facility] Allergy Interpretation See Below 03/29/2025 2:16 PM EDT [facility] Comment: Level of Allergen CLASS kU/L Specific IgE Antibody ----- 0 <0.10 Undetectable 0/1 0.10 - 0.34 Very Low Level 1 0.35 - 0.69 Low Level 2 0.70 - 3.49 Moderate Level 3 3.50 - 17.4 High Level 4 17.5 - 49.9 Very High Level 5 50.0 - 100.0 Very High Level 6 >100.0 Very High Level Test performed at [facility], [address] , [place] [address] Juanita Moseley MD, PhD - Home Service Advisor Blood Venous blood specimen / Unknown Venipuncture / Unknown 03/27/2025 6:15 AM EDT 03/27/2025 10:58 AM EDT Smitha Mcbride MD LAB BLOOD ORDERABLES Fin al Result Performing Organization Address City/[facility] Co de Phone Number [facility] [address] [place] [address] * Allergen latex, IgE (03/27/2025 6:15 AM EDT) Late[place], IgE <0.10 <0.10 kU/L 03/29/2025 2:16 PM EDT [facility] Latex Class CLASS 0 03/29/2025 2:16 PM EDT [facility] Comment: Test performed at [facility], [address] , [place] [address] Juanita Moseley MD, PhD - Home Service Advisor Blood Venous blood specimen / Unknown Venipuncture / Unknown 03/27/2025 6:15 AM EDT 03/27/2025 10:58 AM EDT Smitha Mcbride MD LAB BLOOD ORDERABLES Fin al Result [facility] [address] [place] [address] * C4 complement (03/27/2025 6:15 AM EDT) [facility] C4 Complement 30 16 - 47 mg/dL LAB CHEMISTRY METHOD 03/27/2025 1:39 PM EDT [facility] Blood Venous blood specimen / Unknown Venipuncture / Unknown 03/27/2025 6:15 AM EDT 03/27/2025 10:58 AM EDT Smitha Mcbride MD LAB BLOOD ORDERABLES Fin al Result Performing Organization Address [facility] Co de Phone Number [facility] [address] [place] [address], [place] [phone] * C3 complement (03/27/2025 6:15 AM EDT) [facility] C3 Complement 133 88 - 201 mg/dL LAB CHEMISTRY METHOD 03/27/2025 1:39 PM EDT [facility] Blood Venous blood specimen / Unknown Venipuncture / Unknown 03/27/2025 6:15 AM EDT 03/27/2025 10:58 AM EDT Smitha Mcbride MD LAB BLOOD ORDERABLES Fin al Result Performing Organization Address City/[facility]/ZIP Co de Phone Number [facility] [address] [place] [address], [place] [phone] * (ABNORMAL) CBC auto differential (03/27/2025 6:15 AM EDT) Pathologist [facility] WBC 9.5 4.8 - 10.8 K/[facility] LAB HEMETOLOGY METHOD 03/27/2025 12:08 PM EDT [facility] RBC 3.80(L) 4.50 - 5.50 M/[facility] LAB HEMETOLOGY METHOD 03/27/2025 12:08 PM [facility] Hemoglobin 11.7(L) 13.5 - 17.5 g/dL LAB HEMETOLOGY METHOD 03/27/2025 12:08 PM [facility] Hematocrit 36.3(L) 42.0 - 54.0 % LAB HEMETOLOGY METHOD 03/27/2025 12:08 PM [facility] MCV 96.5 79.0 - 98.0 FL LAB HEMETOLOGY METHOD 03/27/2025 12:08 PM [facility] MCH 31.1 27.0 - 32.0 pcg LAB HEMETOLOGY METHOD 03/27/2025 12:08 PM [facility] MCHC 32.2 32.0 - 37.0 g/dL LAB HEMETOLOGY METHOD 03/27/2025 12:08 PM [facility] RDW 12.1 11.0 - 15.0 % LAB HEMETOLOGY METHOD 03/27/2025 12:08 PM [facility] Platelets 371 130 - 400 K/mcL LAB HEMETOLOGY METHOD 03/27/2025 12:08 PM [facility] MPV 9.7 7.0 - 11.0 FL LAB HEMETOLOGY METHOD 03/27/2025 12:08 PM [facility] NRBC 0.0 <1.0 % LAB HEMETOLOGY METHOD 03/27/2025 12:08 PM [facility] NRBC Absolute 0.00 <0.10 K/mcL LAB HEMETOLOGY METHOD 03/27/2025 12:08 PM [facility] Neutrophils Relative 56.7 % LAB HEMETOLOGY METHOD 03/27/2025 12:08 PM [facility] Lymphocytes Relative 30.4 % LAB HEMETOLOGY METHOD 03/27/2025 12:08 PM [facility] Monocytes Relative 6.9 % LAB HEMETOLOGY METHOD 03/27/2025 12:08 PM EDT [facility] Eosinophils Relative 4.3 % LAB HEMETOLOGY METHOD 03/27/2025 12:08 PM EDT [facility] Basophils Relative 0.8 % LAB HEMETOLOGY METHOD 03/27/2025 12:08 PM EDT [facility] Immature Granulocytes Relative 0.9 % LAB HEMETOLOGY METHOD 03/27/2025 12:08 PM EDT [facility] Neutrophils Absolute 5.37 1.50 - 7.00 K/mcL LAB HEMETOLOGY METHOD 03/27/2025 12:08 PM EDT [facility] Lymphocytes Absolute 2.88 1.00 - 5.00 K/mcL LAB HEMETOLOGY METHOD 03/27/2025 12:08 PM EDT [facility] Monocytes Absolute 0.65 0.20 - 1.00 K/mcL LAB HEMETOLOGY METHOD 03/27/2025 12:08 PM EDT [facility] Eosinophils Absolute 0.41 0.00 - 0.50 K/mcL LAB HEMETOLOGY METHOD 03/27/2025 12:08 PM EDT [facility] Basophils Absolute 0.08 0.00 - 0.20 K/mcL LAB HEMETOLOGY METHOD 03/27/2025 12:08 PM EDT [facility] Immature Granulocytes Absolute 0.09(H) 0.00 - 0.03 K/mcL LAB HEMETOLOGY METHOD 03/27/2025 12:08 PM [facility] Blood Venous blood specimen / Unknown Venipuncture / Unknown 03/27/2025 6:15 AM EDT 03/27/2025 10:58 AM EDT us Smitha Mcbride MD LAB BLOOD ORDERABLES Fin al Result [facility] [address] [place] [address], [place] [phone] * (ABNORMAL) Sedimentation rate (03/27/2025 6:15 AM EDT) [facility] Sed Rate 32(H) 0 - 20 mm/hr LAB HEMETOLOGY METHOD 03/27/2025 12:24 PM EDT [facility] Blood Venous blood specimen / Unknown Venipuncture / Unknown 03/27/2025 6:15 AM EDT 03/27/2025 10:58 AM EDT Smitha Mcbride MD LAB BLOOD ORDERABLES Fin al Result Performing Organization Address City/State/[facility] Co de Phone Number [facility] [address] [place] [address], [place] [phone] * Basic metabolic panel (03/27/2025 6:15 AM EDT) [facility] Sodium 141 133 - 145 mmol/L LAB CHEMISTRY METHOD 03/27/2025 1:39 PM [facility] Potassium 4.1 3.5 - 5.5 mmol/L LAB CHEMISTRY METHOD 03/27/2025 1:39 PM [facility] Chloride 105 96 - 110 mmol/L LAB CHEMISTRY METHOD 03/27/2025 1:39 PM [facility] CO2 30 21 - 32 mmol/L LAB CHEMISTRY METHOD 03/27/2025 1:39 PM [facility] Anion Gap 6 3 - 11 LAB CHEMISTRY METHOD 03/27/2025 1:39 PM [facility] Glucose 98 70 - 100 mg/dL LAB CHEMISTRY METHOD 03/27/2025 1:39 PM [facility] BUN 12 5 - 25 mg/dL LAB CHEMISTRY METHOD 03/27/2025 1:39 PM [facility] Creatinine 0.75 0.70 - 1.30 mg/dL LAB CHEMISTRY METHOD 03/27/2025 1:39 PM EDT [facility] eGFR 93 >=60 mL/min/1. 73m2 LAB CHEMISTRY METHOD 03/27/2025 1:39 PM EDT [facility] Comment:Calculation based on the Chronic Kidney Disease Epidemiology Collaboration (CKD-EPI) equation refit without adjustment for race. BUN/Creatinine Ratio 16.0 LAB CHEMISTRY METHOD 03/27/2025 1:39 PM EDT [facility] Calcium 8.6 8.5 - 10.5 mg/dL LAB CHEMISTRY METHOD 03/27/2025 1:39 PM EDT [facility] Blood Venous blood specimen / Unknown Venipuncture / Unknown 03/27/2025 6:15 AM EDT 03/27/2025 10:58 AM EDT us Smitha Mcbride MD LAB BLOOD ORDERABLES Fin al Result [facility] [address] [place] [address], documented in this encounter Visit Diagnoses Diagnosis [...] documented as of this encounter Care Teams Hotel Reservation Agent Relationship Specialty Start Date End Date Av Weathers PA [address] [place] [phone] PCP - General Internal Medicine 12/12/20 documented as of this encounter
--- OUTSIDE RECORDS SUMMARY | 2025-09-20 15:03 | XMS_ITS | Encounter Summary ---
Author Organization [facility] Address [address] [place] [address] Care Team Providers Care Business Administration Instructor Name Role Phone Av Weathers Primary Care Provider [phone] [phone] Encounter Details Date Type Department Care Team (Late st Contact Info) Description 06/14/2025 Lab Requisition [facility] - Main Lab [address] [facility] [place] [phone] Smitha Mcbride MD [address] [id number] Unspecified atrial fibrillation (CMS/HCC V24, CMS/HCC V28); [...] your loved ones. For example, child welfare manager or elderly care for an older [...] Digoxin level (06/14/2025 6:47 AM EDT) Pathologist [facility] Digoxin Lvl 0.8 0.5 - 2.0 ng/mL LAB CHEMISTRY METHOD 06/14/2025 11:00 AM EDT [facility] Comment:Results verified by repeat testing Blood Venous blood specimen / Unknown Venipuncture / Unknown 06/14/2025 6:47 AM EDT 06/14/2025 9:12 AM EDT us Smitha Mcbride MD LAB BLOOD ORDERABLES Fin al Result [facility] [address] [place] [address], * (ABNORMAL) Comprehensive metabolic panel (06/14/2025 6:47 AM EDT) Pathologist [facility] Sodium 138 133 - 145 mmol/L LAB CHEMISTRY METHOD 06/14/2025 10:17 AM EDT [facility] Potassium 3.9 3.5 - 5.5 mmol/L LAB CHEMISTRY METHOD 06/14/2025 10:17 AM EDT [facility] Chloride 103 96 - 110 mmol/L LAB CHEMISTRY METHOD 06/14/2025 10:17 AM EDT [facility] CO2 32 21 - 32 mmol/L LAB CHEMISTRY METHOD 06/14/2025 10:17 AM EDT [facility] Anion Gap 3 3 - 11 LAB CHEMISTRY METHOD 06/14/2025 10:17 AM [facility] Glucose 115(H) 70 - 100 mg/dL LAB CHEMISTRY METHOD 06/14/2025 10:17 AM [facility] BUN 18 5 - 25 mg/dL LAB CHEMISTRY METHOD 06/14/2025 10:17 AM [facility] Creatinine 0.87 0.70 - 1.30 mg/dL LAB CHEMISTRY METHOD 06/14/2025 10:17 AM [facility] eGFR 89 >=60 mL/min/1. 73m2 LAB CHEMISTRY METHOD 06/14/2025 10:17 AM [facility] Comment:Calculation based on the Chronic Kidney Disease Epidemiology Collaboration (CKD-EPI) equation refit without adjustment for race. BUN/Creatinine Ratio 20.7 LAB CHEMISTRY METHOD 06/14/2025 10:17 AM [facility] Calcium 9.2 8.5 - 10.5 mg/dL LAB CHEMISTRY METHOD 06/14/2025 10:17 AM [facility] AST (SGOT) 17 10 - 42 unit/L LAB CHEMISTRY METHOD 06/14/2025 10:17 AM [facility] ALT (SGPT) 19 10 - 60 unit/L LAB CHEMISTRY METHOD 06/14/2025 10:17 AM [facility] Alkaline Phosphatase 82 42 - 121 unit/L LAB CHEMISTRY METHOD 06/14/2025 10:17 AM [facility] Total Protein 6.4 6.0 - 8.0 g/dL LAB CHEMISTRY METHOD 06/14/2025 10:17 AM [facility] Albumin 3.4 3.2 - 5.0 g/dL LAB CHEMISTRY METHOD 06/14/2025 10:17 AM [facility] Total Bilirubin 0.6 0.0 - 1.4 mg/dL LAB CHEMISTRY METHOD 06/14/2025 10:17 AM [facility] Blood Venous blood specimen / Unknown Venipuncture / Unknown 06/14/2025 6:47 AM EDT 06/14/2025 9:12 AM EDT Smitha Mcbride MD LAB BLOOD ORDERABLES Fin al Result [facility] [address] [place] [address], * (ABNORMAL) Complete blood count (06/14/2025 6:47 AM EDT) WBC 10.0 4.8 - 10.8 K/mcL LAB HEMETOLOGY METHOD 06/14/2025 9:39 AM [facility] RBC 4.20(L) 4.50 - 5.50 M/mcL LAB HEMETOLOGY METHOD 06/14/2025 9:39 AM [facility] Hemoglobin 12.7(L) 13.5 - 17.5 g/dL LAB HEMETOLOGY METHOD 06/14/2025 9:39 AM [facility] Hematocrit 39.3(L) 42.0 - 54.0 % LAB HEMETOLOGY METHOD 06/14/2025 9:39 AM [facility] MCV 93.8 79.0 - 98.0 FL LAB HEMETOLOGY METHOD 06/14/2025 9:39 AM [facility] MCH 30.3 27.0 - 32.0 pcg LAB HEMETOLOGY METHOD 06/14/2025 9:39 AM [facility] MCHC 32.3 32.0 - 37.0 g/dL LAB HEMETOLOGY METHOD 06/14/2025 9:39 AM [facility] RDW 12.1 11.0 - 15.0 % LAB HEMETOLOGY METHOD 06/14/2025 9:39 AM [facility] Platelets 286 130 - 400 K/mcL LAB HEMETOLOGY METHOD 06/14/2025 9:39 AM EDT [facility] MPV 9.7 7.0 - 11.0 FL LAB HEMETOLOGY METHOD 06/14/2025 9:39 AM EDT [facility] NRBC 0.0 <1.0 % LAB HEMETOLOGY METHOD 06/14/2025 9:39 AM EDT [facility] NRBC Absolute 0.00 <0.10 K/mcL LAB HEMETOLOGY METHOD 06/14/2025 9:39 AM EDT [facility] Blood Venous blood specimen / Unknown Venipuncture / Unknown 06/14/2025 6:47 AM EDT 06/14/2025 9:12 AM EDT us Smitha Mcbride MD LAB BLOOD ORDERABLES Fin al Result [facility] [address] [place] [address], documented in this encounter Visit Diagnoses Diagnosis [...] documented as of this encounter Care Teams Business Administration Instructor Relationship Specialty Start Date End Date Av Weathers PA [address] [place] [address] PCP - General Internal Medicine 12/12/20 documented as of this encounter
--- OUTSIDE RECORDS SUMMARY | 2025-09-20 15:03 | XMS_ITS | Encounter Summary ---
Author Organization [facility] Address [address] [place] [address] Care Team Providers Care Automatic Profile Sander Operator Name Role Phone Av Weathers Primary Care Provider [phone] [phone] Encounter Details Date Type Department Care Team (Late st Contact Info) Description 02/24/2025 Lab Requisition [facility] - Main Lab [address] [facility] [place] [address] Physician, Pcp Unknown Dysuria Social [...] for your loved ones. For example, director of early childhood or elderly care for an [...] reflex microscopic (02/24/2025 12:00 AM EDT) Specific [place] Urine 1.013 1.003 - 1.030 LAB URINALYSIS - AUTOMATED METHOD 02/24/2025 8:25 PM [facility] pH, Urine 5.5 5.0 - 8.0 pH LAB URINALYSIS - AUTOMATED METHOD 02/24/2025 8:25 PM [facility] Leukocytes, Urine Trace(A) Negative LAB URINALYSIS - AUTOMATED METHOD 02/24/2025 8:25 PM [facility] Nitrite, Urine Negative Negative LAB URINALYSIS - AUTOMATED METHOD 02/24/2025 8:25 PM [facility] Protein, Urine Negative <=Trace mg/dL LAB URINALYSIS - AUTOMATED METHOD 02/24/2025 8:25 PM [facility] Glucose, Urine Negative Negative mg/dL LAB URINALYSIS - AUTOMATED METHOD 02/24/2025 8:25 PM [facility] Ketones, Urine Negative Negative mg/dL LAB URINALYSIS - AUTOMATED METHOD 02/24/2025 8:25 PM [facility] Urobilinogen , Urine 0.2 0.2 - 1.0 mg/dL LAB URINALYSIS - AUTOMATED METHOD 02/24/2025 8:25 PM [facility] Bilirubin, Urine Negative Negative LAB URINALYSIS - AUTOMATED METHOD 02/24/2025 8:25 PM [facility] Blood, Urine Moderate(A) Negative LAB URINALYSIS - AUTOMATED METHOD 02/24/2025 8:25 PM [facility] RBC, Urine 8.3(H) 0 - 4 /HPF LAB URINALYSIS - AUTOMATED METHOD 02/24/2025 8:25 PM [facility] WBC, Urine 5.1(H) 0 - 4 /HPF LAB URINALYSIS - AUTOMATED METHOD 02/24/2025 8:25 PM [facility] Squamous Epithelial, Urine 19 0 - 60 /LPF LAB URINALYSIS - AUTOMATED METHOD 02/24/2025 8:25 PM [facility] Bacteria, Urine Negative Negative /HPF LAB URINALYSIS - AUTOMATED METHOD 02/24/2025 8:25 PM EDT [facility] Hyaline Casts, Urine 0.4 0 - 3 /LPF LAB URINALYSIS - AUTOMATED METHOD 02/24/2025 8:25 PM EDT [facility] Urine Urine specimen obtained by clean catch procedure / Unknown 02/24/2025 02/24/2025 7:41 PM EDT us Pcp Unknown Physician LAB URINE ORDERABLES Final Result [facility] [address] [place] [address], [place] [phone] * (ABNORMAL) Culture urine (02/24/2025 12:00 AM EDT) Culture, Urine >100,000 CFU/mL Enterococcus faecalis(A) AZEB 02/26/2025 10:48 AM EDT [facility] Comment: Edited result: Previously reported as [...] LAB MICROBIOLOGY - GENERAL ORDERABLES Final Result [facility] [address] [place] [address], [place] [phone] documented in this encounter Visit Diagnoses Diagnosis Dysuria documented in this encounter Additional Health Concerns Infection Onset Date Last Indicated Resolved Time 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
--- OUTSIDE RECORDS SUMMARY | 2025-09-20 15:03 | XMS_ITS | Encounter Summary ---
Author Organization [facility] Address [address] [place] [address] Care Team Providers Care Scrap Iron Cutter Name Role Phone Av Weathers Primary Care Provider +1 [phone] Encounter Details Date Type Department Care Team (Late st Contact Info) Description 04/07/2025 Lab Requisition [facility] - Main Lab 299 [facility] [place] [address] Smitha Mcbride MD [address] [id number] Rhabdomyolysis Social History Tobacco Use Types Packs/Day [...] for your loved ones. For example, child psychologist or elderly care for an older [...] mmol/L LAB CHEMISTRY METHOD 04/10/2025 12:08 PM [facility] Potassium 3.7 3.5 - 5.5 mmol/L LAB CHEMISTRY METHOD 04/10/2025 12:08 PM [facility] Chloride 104 96 - 110 mmol/L LAB CHEMISTRY METHOD 04/10/2025 12:08 PM [facility] CO2 29 21 - 32 mmol/L LAB CHEMISTRY METHOD 04/10/2025 12:08 PM [facility] Anion Gap 7 3 - 11 LAB CHEMISTRY METHOD 04/10/2025 12:08 PM [facility] Glucose 109(H) 70 - 100 mg/dL LAB CHEMISTRY METHOD 04/10/2025 12:08 PM [facility] BUN 14 5 - 25 mg/dL LAB CHEMISTRY METHOD 04/10/2025 12:08 PM [facility] Creatinine 0.70 0.70 - 1.30 mg/dL LAB CHEMISTRY METHOD 04/10/2025 12:08 PM [facility] eGFR 95 >=60 mL/min/1. 73m2 LAB CHEMISTRY METHOD 04/10/2025 12:08 PM [facility] Comment:Calculation based on the Chronic Kidney Disease Epidemiology Collaboration (CKD-EPI) equation refit without adjustment for race. BUN/Creatinine Ratio 20.0 LAB CHEMISTRY METHOD 04/10/2025 12:08 PM [facility] Calcium 9.0 8.5 - 10.5 mg/dL LAB CHEMISTRY METHOD 04/10/2025 12:08 PM [facility] Blood Venous blood specimen / Unknown Venipuncture / Unknown 04/10/2025 7:05 AM EDT 04/10/2025 10:47 AM EDT us Smitha Mcbride MD LAB BLOOD ORDERABLES Fin al Result [facility] [address] [place], [place] [address] [phone] * (ABNORMAL) Complete blood count (04/10/2025 7:05 AM EDT) [facility] WBC 9.4 4.8 - 10.8 K/mcL LAB HEMETOLOGY METHOD 04/10/2025 11:21 AM [facility] RBC 3.70(L) 4.50 - 5.50 M/mcL LAB HEMETOLOGY METHOD 04/10/2025 11:21 AM [facility] Hemoglobin 11.7(L) 13.5 - 17.5 g/dL LAB HEMETOLOGY METHOD 04/10/2025 11:21 AM [facility] Hematocrit 35.5(L) 42.0 - 54.0 % LAB HEMETOLOGY METHOD 04/10/2025 11:21 AM [facility] MCV 96.5 79.0 - 98.0 FL LAB HEMETOLOGY METHOD 04/10/2025 11:21 AM [facility] MCH 31.8 27.0 - 32.0 pcg LAB HEMETOLOGY METHOD 04/10/2025 11:21 AM [facility] MCHC 33.0 32.0 - 37.0 g/dL LAB HEMETOLOGY METHOD 04/10/2025 11:21 AM [facility] RDW 12.4 11.0 - 15.0 % LAB HEMETOLOGY METHOD 04/10/2025 11:21 AM [facility] Platelets 302 130 - 400 K/mcL LAB HEMETOLOGY METHOD 04/10/2025 11:21 AM [facility] MPV 9.9 7.0 - 11.0 FL LAB HEMETOLOGY METHOD 04/10/2025 11:21 AM [facility] NRBC 0.0 <1.0 % LAB HEMETOLOGY METHOD 04/10/2025 11:21 AM EDT [facility] NRBC Absolute 0.00 <0.10 K/[facility] LAB HEMETOLOGY METHOD 04/10/2025 11:21 AM EDT [facility] Blood Venous blood specimen / Unknown Venipuncture / Unknown 04/10/2025 7:05 AM EDT 04/10/2025 10:50 AM EDT us Smitha Mcbride MD LAB BLOOD ORDERABLES Fin al Result [facility] [address] [place] [address], documented in this encounter Visit Diagnoses Diagnosis Rhabdomyolysis documented in this encounter Additional Health Concerns Infection Onset Date Last Indicated Resolved Time 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
--- OUTSIDE RECORDS SUMMARY | 2025-09-20 15:03 | XMS_ITS | Encounter Summary ---
Author Organization [facility] Address [address] [place] [address] Care Team Providers Care Live Hanger Name Role Phone Av Weathers Primary Care Provider [phone] [phone] Encounter Details Date Type Department Care Team (Late st Contact Info) Description 06/15/2025 Lab Requisition [facility] - Main Lab 299 [facility] [place] [address] Smitha Mcbride MD [address] [phone] Essential (primary) hypertension; Other specified disorders of [...] loved ones. For example, child care centre director or elderly care for an older [...] natriuretic peptide (06/15/2025 6:37 AM EDT) Pathologist [facility] BNP 192(H) <=100 pcg/mL LAB CHEMISTRY METHOD 06/15/2025 9:[address] [facility] Blood Venous blood specimen / Unknown Venipuncture / Unknown 06/15/2025 6:37 AM EDT 06/15/2025 8:25 AM EDT us Smitha Mcbride MD LAB BLOOD ORDERABLES Fin al Result [facility] [address] [place] [address], [place] [phone] * (ABNORMAL) Basic metabolic panel (06/15/2025 6:37 AM EDT) [facility] Sodium 139 133 - 145 mmol/L LAB CHEMISTRY METHOD 06/15/2025 9:43 AM [facility] Potassium 3.7 3.5 - 5.5 mmol/L LAB CHEMISTRY METHOD 06/15/2025 9:43 AM [facility] Chloride 103 96 - 110 mmol/L LAB CHEMISTRY METHOD 06/15/2025 9:43 AM [facility] CO2 31 21 - 32 mmol/L LAB CHEMISTRY METHOD 06/15/2025 9:43 AM [facility] Anion Gap 5 3 - 11 LAB CHEMISTRY METHOD 06/15/2025 9:43 AM [facility] Glucose 118(H) 70 - 100 mg/dL LAB CHEMISTRY METHOD 06/15/2025 9:43 AM [facility] BUN 18 5 - 25 mg/dL LAB CHEMISTRY METHOD 06/15/2025 9:43 AM [facility] Creatinine 0.77 0.70 - 1.30 mg/dL LAB CHEMISTRY METHOD 06/15/2025 9:[address] [facility] eGFR 92 >=60 mL/min/1. 73m2 LAB CHEMISTRY METHOD 06/15/2025 9:[address] [facility] Comment:Calculation based on the Chronic Kidney Disease Epidemiology Collaboration (CKD-EPI) equation refit without adjustment for race. BUN/Creatinine Ratio 23.4 LAB CHEMISTRY METHOD 06/15/2025 9:[address] [facility] Calcium 9.2 8.5 - 10.5 mg/dL LAB CHEMISTRY METHOD 06/15[facility]2025 [facility] Blood Venous blood specimen / Unknown Venipuncture / Unknown 06/15/2025 6:37 AM EDT 06/15/2025 8:25 AM EDT Smitha Mcbride MD LAB BLOOD ORDERABLES Fin al Result [facility] [address] [place] [address], * (ABNORMAL) Complete blood count (06/15/2025 6:37 AM EDT) WBC 9.0 4.8 - 10.8 K/mcL LAB HEMETOLOGY METHOD 06/15/2025 9:05 AM [facility] RBC 4.10(L) 4.50 - 5.50 M/[facility] LAB HEMETOLOGY METHOD 06/15/2025 9:05 AM [facility] Hemoglobin 12.5(L) 13.5 - 17.5 g/dL LAB HEMETOLOGY METHOD 06/15/2025 9:05 AM [facility] Hematocrit 38.3(L) 42.0 - 54.0 % LAB HEMETOLOGY METHOD 06/15/2025 9:[facility] MCV 92.7 79.0 - 98.0 FL LAB HEMETOLOGY METHOD 06/15/2025 9:[address] [facility] MCH 30.3 27.0 - 32.0 pcg LAB HEMETOLOGY METHOD 06/15/2025 9:[address] [facility] MCHC 32.6 32.0 - 37.0 g/dL LAB HEMETOLOGY METHOD 06/15/2025 9:[address] [facility] RDW 12.0 11.0 - 15.0 % LAB HEMETOLOGY METHOD 06/15/2025 9:[address] [facility] Platelets 288 130 - 400 K/mcL LAB HEMETOLOGY METHOD 06/15/2025 9:05 AM [facility] MPV 9.8 7.0 - 11.0 FL LAB HEMETOLOGY METHOD 06/15/2025 9:[address] [facility] NRBC 0.0 <1.0 % LAB HEMETOLOGY METHOD 06/15/2025 9:05 AM [facility] NRBC Absolute 0.00 <0.10 K/mcL LAB HEMETOLOGY METHOD 06/15/2025 9:05 AM [facility] Blood Venous blood specimen / Unknown Venipuncture / Unknown 06/15/2025 6:37 AM EDT 06/15/2025 8:25 AM EDT us Smitha Mcbride MD LAB BLOOD ORDERABLES Fin al Result 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
--- OUTSIDE RECORDS SUMMARY | 2025-09-20 15:03 | XMS_ITS | Encounter Summary ---
Author Organization [facility] Address [address] [place] [address] Care Team Providers Care Throw Out Clerk Name Role Phone Av Weathers Primary Care Provider [phone] [phone] Encounter Details Date Type Department Care Team (Late st Contact Info) Description 02/13/2025 Lab Requisition [facility] - Main Lab 299 [facility] [place] [address] Smitha Mcbride MD [address] [phone] Vitamin D deficiency, unspecified Social History Tobacco [...] for your loved ones. For example, childcare attendant or elderly care for an [...] ORDERABLES Fin al Result Performing Organization Address City/[facility]/ZIP Co de Phone Number [facility] [address] [place] [address], [place] [phone] * (ABNORMAL) Folate (02/13/2025 9:38 AM EDT) [facility] Folate 19.0(H) 2.8 - 17.0 ng/ml LAB CHEMISTRY METHOD 02/13/2025 2:17 PM EDT [facility] Blood Venous blood specimen / Unknown Venipuncture / Unknown 02/13/2025 9:38 AM EDT 02/13/2025 12:10 PM EDT Smitha Mcbride MD LAB BLOOD ORDERABLES Fin al Result Performing Organization Address City/[facility]/ZIP Co de Phone Number [facility] [address] [place] [address], [place] [phone] * Vitamin B12 (02/13/2025 9:38 AM EDT) Pathologist [facility] Vitamin B-12 636 250 - 900 pcg/mL LAB CHEMISTRY METHOD 02/13/2025 2:17 PM EDT [facility] Blood Venous blood specimen / Unknown Venipuncture / Unknown 02/13/2025 9:38 AM EDT 02/13/2025 12:10 PM EDT Smitha Mcbride MD LAB BLOOD ORDERABLES Fin al Result [facility] [address] [place] [address], documented in this encounter Visit Diagnoses Diagnosis Vitamin D deficiency, unspecified documented in this encounter Additional Health Concerns Infection Onset Date Last Indicated Resolved Time 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
--- OUTSIDE RECORDS SUMMARY | 2025-09-20 15:03 | XMS_ITS | Encounter Summary ---
Author Organization [facility] Address [address] [place] [address] Care Team Providers Care Loan Collector Name Role Phone Av Weathers Primary Care Provider [phone] [phone] Encounter Details Date Type Department Care Team (Late st Contact Info) Description 02/19/[address] [facility] - Main Lab 299 [facility] [place] [address] Smitha Mcbride MD [address] [phone] Rhabdomyolysis; Weakness Social History Tobacco Use Types [...] your loved ones. For example, child support specialist or elderly care for an older [...] AM EDT) WBC 11.1(H) 4.8 - 10.8 K/[facility] LAB HEMETOLOGY METHOD 02/20/2025 2:14 PM [facility] RBC 4.00(L) 4.50 - 5.50 M/mcL LAB HEMETOLOGY METHOD 02/20/2025 2:14 PM [facility] Hemoglobin 13.2(L) 13.5 - 17.5 g/dL LAB HEMETOLOGY METHOD 02/20/2025 2:14 PM [facility] Hematocrit 39.7(L) 42.0 - 54.0 % LAB HEMETOLOGY METHOD 02/20/2025 2:14 PM [facility] MCV 99.5(H) 79.0 - 98.0 FL LAB HEMETOLOGY METHOD 02/20/2025 2:14 PM [facility] MCH 33.1(H) 27.0 - 32.0 pcg LAB HEMETOLOGY METHOD 02/20/2025 2:14 PM [facility] MCHC 33.2 32.0 - 37.0 g/dL LAB HEMETOLOGY METHOD 02/20/2025 2:14 PM [facility] RDW 12.0 11.0 - 15.0 % LAB HEMETOLOGY METHOD 02/20/2025 2:14 PM [facility] Platelets 453(H) 130 - 400 K/mcL LAB HEMETOLOGY METHOD 02/20/2025 2:14 PM [facility] MPV 9.8 7.0 - 11.0 FL LAB HEMETOLOGY METHOD 02/20/2025 2:14 PM [facility] NRBC 0.0 <1.0 % LAB HEMETOLOGY METHOD 02/20/2025 2:14 PM [facility] NRBC Absolute 0.00 <0.10 K/mcL LAB HEMETOLOGY METHOD 02/20/2025 2:14 PM EDT [facility] Blood Venous blood specimen / Unknown Venipuncture / Unknown 02/20/2025 6:50 AM EDT 02/20/2025 12:32 PM EDT Smitha Mcbride MD LAB BLOOD ORDERABLES Fin al Result [facility] [address] [place] [address], * (ABNORMAL) Comprehensive metabolic panel (02/20/2025 6:50 AM EDT) Sodium 137 133 - 145 mmol/L LAB CHEMISTRY METHOD 02/20/2025 1:57 PM [facility] Potassium 4.1 3.5 - 5.5 mmol/L LAB CHEMISTRY METHOD 02/20/2025 1:57 PM [facility] Chloride 104 96 - 110 mmol/L LAB CHEMISTRY METHOD 02/20/2025 1:57 PM [facility] CO2 26 21 - 32 mmol/L LAB CHEMISTRY METHOD 02/20/2025 1:57 PM [facility] Anion Gap 7 3 - 11 LAB CHEMISTRY METHOD 02/20/2025 1:57 PM [facility] Glucose 100 70 - 100 mg/dL LAB CHEMISTRY METHOD 02/20/2025 1:57 PM [facility] BUN 13 5 - 25 mg/dL LAB CHEMISTRY METHOD 02/20/2025 1:57 PM [facility] Creatinine 0.64(L) 0.70 - 1.30 mg/dL LAB CHEMISTRY METHOD 02/20/2025 1:57 PM [facility] eGFR 98 >=60 mL/min/1. 73m2 LAB CHEMISTRY METHOD 02/20/2025 1:57 PM [facility] Comment:Calculation based on the Chronic Kidney Disease Epidemiology Collaboration (CKD-EPI) equation refit without adjustment for race. BUN/Creatinine Ratio 20.3 LAB CHEMISTRY METHOD 02/20/2025 1:57 PM EDT [facility] Calcium 9.1 8.5 - 10.5 mg/dL LAB CHEMISTRY METHOD 02/20/2025 1:57 PM EDT [facility] AST (SGOT) 19 10 - 42 unit/L LAB CHEMISTRY METHOD 02/20/2025 1:57 PM EDT [facility] ALT (SGPT) 38 10 - 60 unit/L LAB CHEMISTRY METHOD 02/20/2025 1:57 PM EDT [facility] Alkaline Phosphatase 96 42 - 121 unit/L LAB CHEMISTRY METHOD 02/20/2025 1:57 PM EDT [facility] Total Protein 6.7 6.0 - 8.0 g/dL LAB CHEMISTRY METHOD 02/20/2025 1:57 PM EDT [facility] Albumin 3.3 3.2 - 5.0 g/dL LAB CHEMISTRY METHOD 02/20/2025 1:57 PM EDT [facility] Total Bilirubin 0.4 0.0 - 1.4 mg/dL LAB CHEMISTRY METHOD 02/20/2025 1:57 PM T [facility] Blood Venous blood specimen / Unknown Venipuncture / Unknown 02/20/2025 6:50 AM EDT 02/20/2025 12:34 PM EDT us Smitha Mcbride MD LAB BLOOD ORDERABLES Fin al Result [facility] [address] [place] [address], documented in this encounter Visit Diagnoses Diagnosis [...] documented as of this encounter Care Teams Loan Collector Relationship Specialty Start Date End Date Av Weathers PA [address] [place] [address] PCP - General Internal Medicine 12/12/20 documented as of this encounter
== END 2025-09-20 12:05 | disposition home or self-care (01) ==
PROVIDERS: PCP Physician Assistant Medical; Visit Provider Nurse Practitioner Family
DX: Q54.1 Hypospadias, penile (principal); N40.0 Benign prostatic hyperplasia without lower urinary tract symptoms; N50.89 Other specified disorders of the male genital organs; N39.0 Urinary tract infection, site not specified; N43.3 Hydrocele, unspecified; R33.9 Retention of urine, unspecified
CPT/HCPCS: 99214

== ENCOUNTER → 2025-09-20 11:20 | Outpatient (BNVA) | payer MEDICARE, SELFPAY | PROVIDERS: PCP Physician Assistant Medical; Visit Provider Nurse Practitioner Family | DX: N40.0 Benign prostatic hyperplasia without lower urinary tract symptoms (principal); N43.3 Hydrocele, unspecified; Q54.1 Hypospadias, penile; N50.89 Other specified disorders of the male genital organs; N39.0 Urinary tract infection, site not specified; R33.9 Retention of urine, unspecified | CPT/HCPCS: 99212 ==

== ENCOUNTER 2025-09-28 14:04 | Emergency (ER) | payer MEDICARE, SELFPAY ==
[2025-09-28] VITALS (10 sets, daily range): BP systolic 111–167; BP diastolic 56–83; PULSE 61–72; RESP 14–22; TEMP 36.6–36.8; O2SAT 93–97; BMI 26.2
--- NOTE | ~2025-09-28 | CT_ITS ---
CLINICAL HISTORY: Stroke Protocol r sided weakness CT Head without contrast Comparison: CT/[place]/SR - CT HEAD/BRAIN WO IV CON - 01/30/25 15:21 EDT Findings: White matter hypodensities likely secondary to advanced chronic ischemic small vessel disease. Loss of schwarz-white matter differentiation in the left BROKERAGE MANAGER territory is concerning for an acute/subacute stroke. No acute intracranial hemorrhage. No mass effect, midline shift, or herniation. Calcified atherosclerotic disease of the intracranial arteries, most prominent in the left vertebral artery. The cerebellar tonsils are appropriately positioned. Orbits: Unremarkable. Paranasal sinuses: Well aerated. The mastoid air cells are well aerated. Cerumen in bilateral external auditory canals. The soft tissues are unremarkable. No acute displaced calvarial fracture. Impression: Motion artifact limits evaluation of the brain. Within this limitation, there is a acute/subacute infarct involving the left BROKERAGE MANAGER territory. No hemorrhagic transformation. No mass effect or herniation. This document has been electronically signed by: Yanira Gross MD on 09/28/2025 14:51:47
--- NOTE | ~2025-09-28 | MR_ITS ---
CLINICAL HISTORY: STROKE ams MR of the brain without contrast Comparison: CT/REG/SR - CT ANGIO HEAD NECK STROKE - 09/28/25 14:[address]/REG/SR - CT HEAD FOR STROKE - 09/28/25 14:[address]/REG/UT/SR - CT HEAD/BRAIN WO IV CON - 01/30/25 15:21 EDT Findings: There is restricted diffusion in the left posterior cerebral artery territory involving the occipital and temporal lobes with associated increased signal on the FLAIR/T2 weighted images. There is linear susceptibility in the region of the left posterior cerebral artery territory which is favored to be thrombus within the vessel. Petechial hemorrhage is considered less likely. No parenchymal hematoma. There is sulcal effacement due to mass effect/edema. There is a region of susceptibility on the SWI images measuring up to 2.0 cm which is present of the right frontal/parietal junction without signal abnormality seen on the other series which could be the sequela of prior hemorrhage. There are few other scattered foci of susceptibility which are likely the sequela of hypertensive microangiopathy. No midline shift or herniation. No hydrocephalus. Confluent increased signal is seen in the deep and periventricular white matter on the T2/FLAIR sequences, which most likely represents the sequela of severe chronic small vessel ischemic disease. Chronic lacunar infarction in the right cerebellum. No extra-axial fluid collection or mass. Unremarkable sella. Intact flow voids. Normal orbits. Mild mucosal thickening in the maxillary sinuses and scattered bilateral ethmoid air cells. Trace mucosal thickening in the sphenoid sinuses. Clear frontal sinuses. Fluid signal within mastoid air cells, [id number]. Unremarkable osseous structures. Impression: Acute infarction in the left posterior cerebral artery territory. Linear susceptibility in the left EMERGENCY DEPARTMENT NURSE territories favored to be thrombus within the vessel. Petechial hemorrhage is considered less likely. No parenchymal hematoma. Mild mass effect.. This document has been electronically signed by: Donna Pedroza MD on 09/28/2025 17:51:27
--- NOTE | ~2025-09-28 | CT_ITS ---
CLINICAL HISTORY: Stroke Protocol r sided weakness Exam: CTA head and neck with IV contrast, 3D post-processing Comparison: CT/REG/SR - CT HEAD FOR STROKE - 09/28/25 14:16 EST Findings: Motion blurring mildly degraded exam. CTA neck: Aberrant right subclavian artery, variant anatomy, otherwise unremarkable arch vessel branching pattern. Moderate atherosclerotic calcification of the aortic arch, arch vessels, bilateral carotid bulbs, ICA/ECA origins, origins of the vertebral arteries. The aortic arch, arch vessel takeoffs, bilateral common carotid, internal and external carotid arteries, vertebral arteries are patent, no aneurysm, dissection or flow-limiting stenosis. Left vertebral artery is mildly dominant. Moderate ostial stenosis of the vertebral artery origins bilaterally. Mild ostial stenosis of the left ICA 40%. No apparent stenosis of the right ICA. CTA head: Moderate to severe atherosclerotic calcification of the intracranial ICAs, most notably involving the cavernous to terminal segments, causing focal moderate stenosis close to of the ophthalmic artery takeoff bilaterally. Anterior circulation is patent, no aneurysm, dissection or flow-limiting stenosis, patent anterior communicating artery. Left posterior cerebral artery is occluded from posterior P2 segment. Right [employer], vertebrobasilar system are patent, no aneurysm, dissection or flow-limiting stenosis. Left intradural vertebral artery is dominant. Others: No abnormal intracranial enhancement. Acute/subacute ischemic infarct of the left occipital lobe [employer]PER[employer]OR distribution is better seen on earlier noncontrast CT. Imaged neck soft tissue demonstrates nothing unusual. Lung apices clear. No acute osseous abnormality. Degenerative changes of the cervical spine noted. Impression: 1. Left [employer] SUPER[employer]OR is occluded from posterior P2 segment, resulting in acute/subacute ischemic infarct of the left occipital lobe. 2. Other major vessels in the neck and head are patent, no aneurysm, dissection or flow-limiting stenosis. 3. Additional incidental/chronic findings as described above. Carotid stenosis and measurements are in accordance with NASCET criteria. This document has been electronically signed by: Beatriz Espinal MD on 09/28/2025 16:17:09
--- NOTE | 2025-09-28 14:07 | ECG_ITS ---
Test Reason : ?STROKE Blood Pressure : */* mmHG Vent. Rate : 70 BPM Atrial Rate : * BPM P-R Int : * ms QRS Dur : 80 ms QT Int : 428 ms P-R-T Axes : * 12 73 degrees QTcB Int : 462 ms Atrial fibrillation with premature ventricular or aberrantly conducted complexes Nonspecific ST abnormality Abnormal ECG When compared with ECG of 30-Jan-2025 19:26, T wave inversion no longer evident in Inferior leads T wave inversion no longer evident in Anterolateral leads Referred By: Dipak Crowder Electronically Signed By: ODALYS LARSEN MD
--- NOTE | 2025-09-28 14:10 | ED_ITS ---
HPI - General Adult General Chief complaint: Stroke Stated complaint: WEAKNESS FACIAL DROOP Time Seen by Provider: 09/28/25 14:07 Source: patient and EMS Mode of arrival: EMS Limitations: altered mental status (poor historian ) History of Present Illness ED Provider: Vel AVILA HPI narrative: Subjective Chief Complaint: ?Right?sided facial droop and weakness.? History of Present Illness: 79-year-old male transferred from nursing facility for evaluation of new right- sided facial droop and weakness. Facility staff noted a progressive decline in strength over the past few da ys. Today, patient appeared ?somewhat confused? and was observed with right facial droop. EMS reports facility last known well (LKW) time of 11:00 AM, though this is uncertain due to preceding days of weakness and altered behavior. Patient completed his final day of antibiotics for a recent urinary tract infection earlier today. In transport, patient stated he ?feels fine? and reported a history of prior stroke (not confirmed in available records). Past medical history includes recent UTI, alcohol use disorder, and rhabdomyolysis. Related Data Home Medications ?Medication ?Instructions ?Recorded ?Confirmed aspirin 81 mg tablet,delayed 81 mg PO DAILY 01/30/2511/21/24 release atorvastatin 40 mg tablet 40 mg PO DAILY 01/30/2509/04 carvedilol 12.5 mg tablet 12.5 mg PO BID 01/30/2509/04 digoxin 125 mcg (0.125 mg) tablet 125 mcg PO DAILY 09/20/25 furosemide 40 mg tablet 40 mg PO DAILY 01/30/2509/04 Previous Rx's ?Medication ?Instructions ?Recorded folic acid 1 mg tablet 1 mg PO DAILY #1 tab 02/03/ 5 diphenhydramine HCl 25 mg capsule 25 mg PO DAILY #5 ca ps 03/21/25 (Banophen) famotidine 20 mg tablet 20 mg PO DAILY #5 tabs 03/21 losartan 25 mg tablet 25 mg PO DAILY #14 tabs 03/05 04/28 prednisone 20 mg tablet 20 mg PO DAILY 5 days #5 tab s 03/21/25 finasteride 5 mg tablet 5 mg PO DAILY #90 tabs 04/20 levofloxacin 500 mg tablet 500 mg PO Q24H 10 days #10 tabs 04/20/25 tamsulosin 0.4 mg capsule 0.4 mg PO BEDTIME #90 caps 0 04/20/25 Allergies Allergy/AdvReac Type Severity Reaction Status Date / Time cephalexin (From Keflex) Allergy Severe Angioedema Verified 09/28/25 14:49 Review of Systems 2 Review of Systems: Yes all other systems are reviewed and are negative [facility] Past Medical History Attestation statement: The following information was validated with the patient. Source: old records reviewed and nursing notes reviewed Medical History Hepatic steatosis Cerumen impaction Cervical spondylosis CVA (cerebral vascular accident) ETOH abuse Afib Surgical History History of ankle surgery Hx of CABG Social History Social History Household Members: None Housing: Apartment Do you presently have visiting nurse or other home services: Yes (niece/financial reserve clerk 2- 3hrs a day) Alcohol intake: current Alcohol intake frequency: 0-2 drinks per day Alcohol type: beer Patient Tobacco Use Status: Never used Tobacco Advance Directives Date on File: 06/13/24 Do you have a plan to hurt others: No Plan service: No Physical Exam ED Exam Exam: Appearance: Alert.? Oriented X3.? No acute distress.? Head: Normocephalic, atraumatic, no step-offs or deformities Eyes: Pupils equal, round and reactive to light.? Neck: Normal inspection.? Neck supple.? CVS: Normal heart rate and rhythm.? Pulses normal.? Respiratory: No respiratory distress.? Breath sounds normal.? Abdomen: Soft and nontender.? Skin: Skin warm and dry.? Normal skin color.? Normal skin turgor.? Extremities: No lower extremity edema.? No calf ttp. Neurologic: Right facial droop present. Motor strength: RUE 3/5 with drift, RLE 4/5; LUE & LLE 5/5. Drift to right upper extremity observed. Neuro: Oriented X 3.? No motor deficit.? No sensory deficit. CN 2-12 intact Vital Signs: Vital Signs - 24 hr 09/28/25 14:45 09/28/25 15:20 Pulse Rate 71 72 Respiratory Rate 22 H 14 Blood Pressure 111/67 118/63 Pulse Oximetry 93 95 Oxygen Delivery Method Room Air Room Air BMI result Body Mass Index 26.2 vss Course Reevaluation(s) Reevaluation #1: Watson tried calling [facility] and has not been successful Time: 14:18 Reevaluation #2: CT head w/ motion artifact and L DURALUMIN METALWORKER acute/subacute stroke. Call out to neurology Time: 14:56 Reevaluation #3: Discussed this case w/ neurology. Who recommends no TNK as unclear LKWT and admit w/ asa. Time: 15:01 Additional Reevaluation(s): Leukocytosis noted w/ shift. Plts elevated. Receiving IV hydration . Mild bump in BUN/ creatinine again receiving IV hydration. I did decide to give levofloxacin due to ams and leukocytosis incase this is a UTI that did not clear. Plan- hospital admission Medications Administered Generic Name Dose Route Start Last Admin Trade Name Freq PRN Reason Stop Dose Admin Sodium Chloride 2,208 mls @ 2,208 mls/hr 09/28/25 15:05 09/28/25 15:06 Ns 30 ml/kg infuse over 1 hr (2208 ml) 09/28/25 16:04 2,208 mls/hr IV Administration .Q1H STA Discontinued Medications Generic Name Dose Route Start Last Admin Trade Name Freq PRN Reason Stop Dose Admin Aspirin 81 mg 09/28/25 15:01 09/28/25 15:15 Aspirin 81 Mg Tab.Chew PO 09/28/25 15:02 Not Given ONCE ONE Levofloxacin 500 mg in 100 mls @ 100 mls/hr 09/28/25 14:28 09/28/25 14:54 Levaquin IV 09/28/25 15:27 100 mls/hr ONCE ONE Administration Iohexol 100 ml 09/28/25 14:29 09/28/25 14:30 Iohexol 350 Mg/Ml 100 Ml Infus..Btl IV 09/28/25 14:30 70 ml ONCE ONE Administration Midazolam HCl 2.5 mg 09/28/25 14:25 09/28/25 14:25 Midazolam Hcl 5 Mg/Ml Vial IVPUSH 09/28/25 14:26 2.5 mg ONCE ONE Administration Medical Decision Making Medical Decision Making MDM Narrative: 1400 79-year-old male with ? acute onset right facial droop and right-sided weakness, unclear LKW, concerning for acute cerebrovascular accident. Problem #1: Suspected Acute Ischemic Stroke Assessment: Presents with focal neurologic deficits (right facial droop, RUE/RLE weakness). LKW uncertain >4.5 hrs; therefore not a candidate for TNK per current stroke protocol. Requires emergent imaging and neurology input. Plan: * Initiate stroke protocol (already in progress). * CT head non-contrast ordered; patient taken directly to scanner on arrival. * Consult Neurology stat once imaging available. * Continuous neurological monitoring in ED. * Reassess for eligibility for further interventions per neurology recommendations. Problem #2: Recent Urinary Tract Infection ? Completed Antibiotics Today Assessment: Completed antibiotic course today. Plan: * Document completion of therapy; no acute intervention at this time. * Monitor for signs of recurrent infection while in ED/hospital. Problem #3: Alcohol Use Disorder (history) Assessment: Chronic condition. Plan: * Continue facility regimen; monitor for withdrawal while hospitalized. Problem #4: History of Rhabdomyolysis Assessment: Not currently symptomatic. Plan: * Review prior records for etiology and baseline labs when available. Disposition to be determined pending imaging and neurology recommendations. Modified NIH Stroke Scale/Score (mNIHSS) from [email or web address] on 09/28/2025 All calculations should be rechecked by clinician prior to use RESULT SUMMARY: 5 points Modified NIH Stroke Scale INPUTS: 1B: Level of consciousness/orientation questions ?> 0 = Both questions correct 1C: Level of consciousness commands ?> 0 = Both tasks correct 2: Test horizontal extra-ocular movements ?> 1 = Partial gaze palsy 3: Test visual trimble ?> 1 = Partial hemianopia 5A: Test left arm motor drift ?> 0 = No drift 5B: Test right arm motor drift ?> 2 = Falls before 10 seconds 6A: Test left leg motor drift ?> 0 = No drift 6B: Test right leg motor drift ?> 1 = Drift before 5 seconds 8: Test sensation ?> 0 = Normal; no sensory loss 9: Test language/aphasia ?> 0 = Normal; no aphasia 11: Test extinction/inattention/neglect ?> 0 = Normal Differential Diagnosis Differential Diagnoses: The differential diagnosis associated with the presentation includes Differential Diagnosis * Acute ischemic stroke (most likely, given focal deficits and risk factors) * Intracerebral hemorrhage * Transient ischemic attack (TIA) * Seizure with post-ictal paresis (Joni's paralysis) * Infection-related encephalopathy (recent UTI, possible sepsis) * Metabolic derangement (electrolyte imbalance, hypoglycemia) * Medication effect or intoxication (consider alcohol use disorder) * Medel's palsy (less likely given limb involvement) * Other structural STATION SUPERVISOR lesions (tumor, abscess) Consult Healthcare Provider Management of the patient was discussed with: Sheep Sticker (Neurology Danny ) Lab Data MDM Lab Attestation statement: I reviewed the patient's lab results. 09/28/25 14:14 09/28/25 14:14 Labs: Lab Results 09/28/25 09/28/25 09/28/25 Range/Units 14:14 14:15 14:51 WBC 17.1 H (4.8-10.8) X10*3/uL RBC 4.85 (4.60-5.80) X10*6/uL Hgb 14.6 (14.0-18.0) g/dl Hct 43.1 (42.0-52.0) % MCV 88.9 (80.0-98.0) fL MCH 30.1 (27.0-33.0) pg MCHC 33.9 (31.0-36.0) g/dl RDW 12.5 (11.0-16.0) % Plt Count 527 H D (160-400) X10*3/uL MPV 9.0 L (9.4-12.4) fL Immature Gran % (Auto) 0.7 H (0.0-0.4) % Neut % (Auto) 80.2 H (45-73) % Lymph % (Auto) 13.1 L (20-40) % Teller % (Auto) 4.6 (2-11) % Eos % (Auto) 0.9 (0-4) % Baso % (Auto) 0.5 (0-2) % Lymph # (Auto) 2.2 (1.2-4.9) X10*3/uL Teller # (Auto) 0.8 (0.1-1.2) X10*3/uL Eos # (Auto) 0.2 (0.0-0.4) X10*3/uL Baso # (Auto) 0.1 (0.0-0.2) X10*3/uL Abs Immat Gran (auto) 0.12 H (0.00-0.03) X10*3/uL Absolute Neuts (auto) 13.8 H (2.0-8.3) x10*3/uL Absolute Nucleated RBC 0.000 (0.0-0.012) X10*3/uL Nucleated RBC % (auto) 0.0 (0.0-0.2) /100WBC PT 14.6 H (11.2-13.5) SEC Whole Blood PT 13.8 H (11.1-13.5) sec INR 1.2 H (0.9-1.1) Whole Blood INR 1.2 H (0.9-1.1) APTT 30.1 (26.7-34.1) SEC Sodium 138 (135-145) mmol/L Potassium 4.4 (3.3-5.1) mmol/L Chloride 103 (96-108) mmol/L Carbon Dioxide 24 (22-29) mmol/L Anion Gap 15 (12-20) BUN 20 H (9-16) mg/dL Creatinine 1.09 (0.5-1.4) mg/dL Estim Creat Clear Calc TNP Estimated GFR > 60 POC Glucose 136 H (60-115) mg/dL Random Glucose 146 H (60-115) mg/dL Lactic Acid 2.0 (0.5-2.0) mmol/L Calcium 10.0 (8.4-10.2) mg/dL Troponin I High Sens 10.5 (<3.5-35.0) ng/L Triglycerides 92 (<150) mg/dL Cholesterol 89 (<200) mg/dL LDL Cholesterol, Calc 48 (<100) mg/dL HDL Cholesterol 23 L (>40) mg/dL Urine Color Urine Appearance Urine pH (5.0-9.0) Ur Specific [place] (1.005-1.025) Urine Protein (Neg-Trace) mg/dL Urine Glucose (UA) (Negative) mg/dL Urine Ketones (Negative) mg/dL Urine Blood (Negative) Urine Nitrite (Negative) Ur Leukocyte Esterase (Negative) Urine RBC (0-2) /HPF Urine WBC (0-5) /HPF Ur Squamous Epith Cells (0-2) /HPF Calcium Oxalate Crystal Urine Bacteria (None Seen) Hyaline Casts (0-2) /LPF Granular Casts 12/25/25 Range/Units 14:55 WBC (4.8-10.8) X10*3/uL RBC (4.60-5.80) X10*6/uL Hgb (14.0-18.0) g/dl Hct (42.0-52.0) % MCV (80.0-98.0) fL MCH (27.0-33.0) pg MCHC (31.0-36.0) g/dl RDW (11.0-16.0) % Plt Count (160-400) X10*3/uL MPV (9.4-12.4) fL Immature Gran % (Auto) (0.0-0.4) % Neut % (Auto) (45-73) % Lymph % (Auto) (20-40) % Teller % (Auto) (2-11) % Eos % (Auto) (0-4) % Baso % (Auto) (0-2) % Lymph # (Auto) (1.2-4.9) X10*3/uL Teller # (Auto) (0.1-1.2) X10*3/uL Eos # (Auto) (0.0-0.4) X10*3/uL Baso # (Auto) (0.0-0.2) X10*3/uL Abs Immat Gran (auto) (0.00-0.03) X10*3/uL Absolute Neuts (auto) (2.0-8.3) x10*3/uL Absolute Nucleated RBC (0.0-0.012) X10*3/uL Nucleated RBC % (auto) (0.0-0.2) /100WBC PT (11.2-13.5) SEC Whole Blood PT (11.1-13.5) sec INR (0.9-1.1) Whole Blood INR (0.9-1.1) APTT (26.7-34.1) SEC Sodium (135-145) mmol/L Potassium (3.3-5.1) mmol/L Chloride (96-108) mmol/L Carbon Dioxide (22-29) mmol/L Anion Gap (12-20) BUN (9-16) mg/dL Creatinine (0.5-1.4) mg/dL Estim Creat Clear Calc Estimated GFR POC Glucose (60-115) mg/dL Random Glucose (60-115) mg/dL Lactic Acid (0.5-2.0) mmol/L Calcium (8.4-10.2) mg/dL Troponin I High Sens (<3.5-35.0) ng/L Triglycerides (<150) mg/dL Cholesterol (<200) mg/dL LDL Cholesterol, Calc (<100) mg/dL HDL Cholesterol (>40) mg/dL Urine Color Dark Yellow Urine Appearance Clear Urine pH 5.5 (5.0-9.0) Ur Specific [place] 1.020 (1.005-1.025) Urine Protein 30 (1+) H (Neg-Trace) mg/dL Urine Glucose (UA) Negative (Negative) mg/dL Urine Ketones Negative (Negative) mg/dL Urine Blood Small (1+) H (Negative) Urine Nitrite Negative (Negative) Ur Leukocyte Esterase Moderate (2+) H (Negative) Urine RBC 6-10 H (0-2) /HPF Urine WBC 6-10 (0-5) /HPF Ur Squamous Epith Cells 3-5 (0-2) /HPF Calcium Oxalate Crystal Present Urine Bacteria None Seen (None Seen) Hyaline Casts 3-5 (0-2) /LPF Granular Casts Present Independent Interpretation I performed an independent interpretation of an: CT Scan (Impression: Motion artifact limits evaluation of the brain. Within this limitation, there is a acute/subacute infarct involving the left DURALUMIN METALWORKER territory. No hemorrhagic transformation. No mass effect or herniation.) Radiology Impression Discussion of test interpretation with radiology: I have reviewed the radiologist's reading. External Record Review External record reviewed: Inpatient record, Office record, Outpatient record, Prior outpatient labs, Prior outpatient radiology, Primary care record and Outside ED record Chronic Conditions Patient?s care impacted by: Other (see hpi ) Critical Care Time Critical Care Time Critical Care Time: Yes Total Critical Care Time: 45 Attestation: I attest to this time spent taking care of the patient, obtaining history, physical, reviewing labs, imaging, speaking to my attending and or speaking to specialist. Or preforming a procedure Discharge Plan Discharge Clinical Impression: Stroke, Leukocytosis Patient Disposition: Admitted As Inpatient Print Language: Irish
[2025-09-28 14:19] LABS: Hematocrit 43.1 % (42.0-52.0); Hemoglobin 14.6 g/dl (14.0-18.0); Imm Gran Abs Auto 0.12 X10*3/uL (0.00-0.03); Imm Gran Pct Auto 0.7 % (0.0-0.4); Lymphocytes Absolute Auto 2.2 X10*3/uL (1.2-4.9); MANUAL DIFF FLAG NO; Mean Corpuscular HGB Conc 33.9 g/dl (31.0-36.0); Mean Corpuscular Hemoglobin 30.1 pg (27.0-33.0); Mean Corpuscular Volume 88.9 fL (80.0-98.0); NRBC Abs Auto 0.000 X10*3/uL (0.0-0.012); NRBC Pct Auto 0.0 /100WBC (0.0-0.2); Platelet Count 527 X10*3/uL (160-400); Red Blood Count 4.85 X10*6/uL (4.60-5.80); White Blood Count 17.1 X10*3/uL (4.8-10.8)
[2025-09-28 14:22] LABS: Prothrombin Time Whole Bld POC 13.8 sec (11.1-13.5); ~PT, ~INR - Anti Coag Clinic 1.2 (0.9-1.1)
[2025-09-28 14:23] LABS: Glucose, Whole Blood 136 mg/dL (60-115)
[2025-09-28] MEDS: iohexoL 350 MG/ML 100 ML INFUS..BTL IV (14:30)
[2025-09-28 14:31] LABS: INTERNATIONAL NORM RATIO 1.2 (0.9-1.1); Prothrombin Time 14.6 SEC (11.2-13.5)
[2025-09-28 14:34] LABS: Partial Thromboplastin Time 30.1 SEC (26.7-34.1)
[2025-09-28 14:35] LABS: Stroke Lab Use COMPLETE
[2025-09-28 14:41] LABS: Anion Gap 15 (12-20); Blood Urea Nitrogen 20 mg/dL (9-16); Calcium 10.0 mg/dL (8.4-10.2); Carbon Dioxide 24 mmol/L (22-29); Chloride 103 mmol/L (96-108); Cholesterol 89 mg/dL (<200); Estimated Glomerular Filt Rate > 60; HDL Cholesterol 23 mg/dL (>40); Potassium 4.4 mmol/L (3.3-5.1); Sodium 138 mmol/L (135-145); Triglycerides 92 mg/dL (<150)
[2025-09-28 14:48] LABS: Troponin-I High Sensitivity 10.5 ng/L (<3.5-35.0)
--- NOTE | 2025-09-28 14:59 | PC.NURSE ---
pt came in via ems- pt had notable rt side weakness, delay in following commands, rt neglect, mild rt facial droop. went from ems stretcher into CT scan- labs were drawn while awaiting ct setup, radiology asst attempted ct however patient was unable to lay still and was attempting to undo straps and move himself, attempts to redirect the patient were unsuccessful- per ems pt is developmetally delayed. this nurse spoke with provider- IVP versed was given to relax the patient to help obtain the ct scan, pt was able to complete ct scan after medication was given. while pt was in ct scan sepsis was called, pt was returned to the room, 2 sets of blood cultures, nasal swab, ekg were obtained, urine obtained, monitoring engineer applied- pt is afib on monitor with frequent pvcs, vitals are otherwise stable. IV abx have been hung per order, pt arrived in indewlling lopez cath, call martínez within reach, plan of care ongoing.
--- NOTE | 2025-09-28 15:00 | MHC.EDTECH ---
Previous administrative secretary Greer attempted to call [facility] starting at 1412. She was unable to get anyone on the line after trying 2 more times after.. Ed charge attempting to call again now @1501.
--- NOTE | 2025-09-28 15:01 | PC.NURSE ---
home insurance agent [facility] as previous callers unable to get through with no answer from facility. After being on hold for approx 5-10 min, TW spoke to a nurse Dee Dee who states pt was restless all morning with HTN. Also reports pt was confused all night and unk status from yesterday. Joelle AVILA made aware.
[2025-09-28 15:04] LABS: Appearance Urine Clear; Glucose Urine UA Negative (Negative); PH 5.5 (5.0-9.0); Specific Gravity - Urine 1.020 (1.005-1.025); UMIC TRIGGER UACC YES
[2025-09-28] MEDS: SODIUM CHLORIDE 2208 ML IV (15:06)
[2025-09-28 15:19] LABS: UACC Culture Trigger YES
--- NOTE | 2025-09-28 15:19 | PC.NURSE ---
provider notified pt failed swallow, provider held po ASA
[2025-09-28 15:38] LABS: Resp Syncy Virus RNA Qual PCR NEGATIVE (Negative); SARS COV2 PCR INHOUSE NEGATIVE (Negative)
--- OUTSIDE RECORDS SUMMARY | 2025-09-28 15:43 | XMS_ITS | Encounter Summary ---
Author Organization [facility] Address [address] [place] [address] Care Team Providers Care Rotary Machine Operator Name Role Phone Av Weathers Primary Care Provider [phone] Encounter Details Date Type Department Care Team (Late st Contact Info) Description 06/02/2025 Lab Requisition [facility] Main Lab [address] [facility] [place] [address] Smitha Mcbride MD [address] [id number] Rhabdomyolysis Social History Tobacco Use Types Packs/Day [...] AM EDT) WBC 8.0 4.8 - 10.8 [facility] LAB HEMETOLOGY METHOD 06/06/2025 1:27 PM [facility] RBC 4.40(L) 4.50 - 5.50 M/mcL LAB HEMETOLOGY METHOD 06/06/2025 1:27 PM [facility] Hemoglobin 13.5 13.5 - 17.5 g/dL LAB HEMETOLOGY METHOD 06/06/2025 1:27 PM [facility] Hematocrit 40.8(L) 42.0 - 54.0 % LAB HEMETOLOGY METHOD 06/06/2025 1:27 PM [facility] MCV 92.9 79.0 - 98.0 FL LAB HEMETOLOGY METHOD 06/06/2025 1:27 PM [facility] MCH 30.8 27.0 - 32.0 pcg LAB HEMETOLOGY METHOD 06/06/2025 1:27 PM [facility] MCHC 33.1 32.0 - 37.0 g/dL LAB HEMETOLOGY METHOD 06/06/2025 1:27 PM [facility] RDW 12.0 11.0 - 15.0 % LAB HEMETOLOGY METHOD 06/06/2025 1:27 PM [facility] Platelets 312 130 - 400 K/mcL LAB HEMETOLOGY METHOD 06/06/2025 1:27 PM [facility] MPV 9.9 7.0 - 11.0 FL LAB HEMETOLOGY METHOD 06/06/2025 1:27 PM [facility] NRBC 0.0 <1.0 % LAB HEMETOLOGY METHOD 06/06/2025 1:27 PM [facility] NRBC Absolute 0.00 <0.10 K/mcL LAB HEMETOLOGY METHOD 06/06/2025 1:27 PM [facility] Blood Venous blood specimen / Unknown Venipuncture / Unknown 06/06/2025 9:39 AM EDT 06/06/2025 12:36 PM EDT us Smitha Mcbride MD LAB BLOOD ORDERABLES Fin al Result [facility] [address] [place] [address], [place] [phone] * (ABNORMAL) Basic metabolic panel (06/06/2025 9:39 AM EDT) Pathologist [facility] Sodium 136 133 - 145 mmol/L LAB CHEMISTRY METHOD 06/06/2025 7:01 PM [facility] Potassium 3.6 3.5 - 5.5 mmol/L LAB CHEMISTRY METHOD 06/06/2025 7:01 PM [facility] Chloride 99 96 - 110 mmol/L LAB CHEMISTRY METHOD 06/06/2025 7:01 PM [facility] CO2 28 21 - 32 mmol/L LAB CHEMISTRY METHOD 06/06/2025 7:01 PM [facility] Anion Gap 9 3 - 11 LAB CHEMISTRY METHOD 06/06/2025 7:01 PM [facility] Glucose 208(H) 70 - 100 mg/dL LAB CHEMISTRY METHOD 06/06/2025 7:01 PM [facility] BUN 16 5 - 25 mg/dL LAB CHEMISTRY METHOD 06/06/2025 7:01 PM [facility] Creatinine 0.89 0.70 - 1.30 mg/dL LAB CHEMISTRY METHOD 06/06/2025 7:01 PM [facility] eGFR 88 >=60 mL/min/1. 73m2 LAB CHEMISTRY METHOD 06/06/2025 7:01 PM [facility] Comment:Calculation based on the Chronic Kidney Disease Epidemiology Collaboration (CKD-EPI) equation refit without adjustment for race. 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
--- OUTSIDE RECORDS SUMMARY | 2025-09-28 15:43 | XMS_ITS | Encounter Summary ---
Author Organization [facility] Address [address] [place] [address] Care Team Providers Care P D Driver Name Role Phone Av Weathers Primary Care Provider +1 [phone] Encounter Details Date Type Department Care Team (Late st Contact Info) Description 05/27/2025 Lab Requisition [facility] - Main Lab 299 [facility] [place] [address] Smitha Mcbride MD [address] [phone] Rhabdomyolysis Social History Tobacco Use Types Packs/Day [...] your loved ones. For example, child welfare consultant or elderly care for an older [...] AM EDT) WBC 10.1 4.8 - 10.8 K/[facility] LAB HEMETOLOGY METHOD 05/29/2025 11:01 AM [facility] LAB RBC 4.70 4.50 - 5.50 M/mcL LAB HEMETOLOGY METHOD 05/29/2025 11:01 AM [facility] LAB Hemoglobin 14.1 13.5 - 17.5 g/dL LAB HEMETOLOGY METHOD 05/29/2025 11:01 AM [facility] LAB Hematocrit 43.0 42.0 - 54.0 % LAB HEMETOLOGY METHOD 05/29/2025 11:01 AM [facility] LAB MCV 92.3 79.0 - 98.0 FL LAB HEMETOLOGY METHOD 05/29/2025 11:01 AM [facility] LAB MCH 30.3 27.0 - 32.0 pcg LAB HEMETOLOGY METHOD 05/29/2025 11:01 AM [facility] LAB MCHC 32.8 32.0 - 37.0 g/dL LAB HEMETOLOGY METHOD 05/29/2025 11:01 AM [facility] LAB RDW 12.2 11.0 - 15.0 % LAB HEMETOLOGY METHOD 05/29/2025 11:01 AM [facility] LAB Platelets 331 130 - 400 K/mcL LAB HEMETOLOGY METHOD 05/29/2025 11:01 AM [facility] LAB MPV 9.9 7.0 - 11.0 FL LAB HEMETOLOGY METHOD 05/29/2025 11:01 AM [facility] LAB NRBC 0.0 <1.0 % LAB HEMETOLOGY METHOD 05/29/2025 11:01 AM [facility] LAB NRBC Absolute 0.00 <0.10 K/mcL LAB HEMETOLOGY METHOD 05/29/2025 11:01 AM [facility] LAB Blood Venous blood specimen / Unknown Venipuncture / Unknown 05/29/2025 7:07 AM EDT 05/29/2025 10:25 AM EDT us Smitha Mcbride MD LAB BLOOD ORDERABLES Fin al Result [facility] LAB [address] [place] [address], [place] [phone] * (ABNORMAL) Basic metabolic panel (05/29/2025 7:07 AM EDT) Pathologist [facility] Sodium 138 133 - 145 mmol/L LAB CHEMISTRY METHOD 05/29/2025 1:52 PM T [facility] LAB Potassium 3.8 3.5 - 5.5 mmol/L LAB CHEMISTRY METHOD 05/29/2025 1:52 PM [facility] LAB Chloride 100 96 - 110 mmol/L LAB CHEMISTRY METHOD 05/29/2025 1:52 PM [facility] LAB CO2 29 21 - 32 mmol/L LAB CHEMISTRY METHOD 05/29/2025 1:52 PM [facility] LAB Anion Gap 9 3 - 11 LAB CHEMISTRY METHOD 05/29/2025 1:52 PM [facility] LAB Glucose 111(H) 70 - 100 mg/dL LAB CHEMISTRY METHOD 05/29/2025 1:52 PM [facility] LAB BUN 11 5 - 25 mg/dL LAB CHEMISTRY METHOD 05/29/2025 1:52 PM [facility] LAB Creatinine 0.92 0.70 - 1.30 mg/dL LAB CHEMISTRY METHOD 05/29/2025 1:52 PM [facility] LAB eGFR 86 >=60 mL/min/1. 73m2 LAB CHEMISTRY METHOD 05/29/2025 1:52 PM [facility] LAB Comment:Calculation based on the Chronic Kidney Disease Epidemiology Collaboration (CKD-EPI) equation refit without adjustment for race. BUN/Creatinine Ratio 12.0 LAB CHEMISTRY METHOD 05/29/2025 1:52 PM [facility] LAB Calcium 9.5 8.5 - 10.5 mg/dL LAB CHEMISTRY METHOD 05/29/2025 1:52 PM EDT [facility] LAB Blood Venous blood specimen / Unknown Venipuncture / Unknown 05/29/2025 7:07 AM EDT 05/29/2025 10:24 AM EDT us Smitha Mcbride MD LAB BLOOD ORDERABLES Fin al Result [facility] LAB [address] [place] [address], documented in this encounter Visit Diagnoses Diagnosis Rhabdomyolysis documented in this encounter Additional Health Concerns Infection Onset Date Last Indicated Resolved Time 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
--- OUTSIDE RECORDS SUMMARY | 2025-09-28 15:43 | XMS_ITS | Encounter Summary ---
Author Organization [facility] Address [address] [place] [address] Care Team Providers Care Manager Product Support Name Role Phone Av Weathers Primary Care Provider +1 [phone] Encounter Details Date Type Department Care Team (Late st Contact Info) Description 05/12/2025 Lab Requisition [facility] - Main Lab 299 [facility] [place] [address] Smitha Mcbride MD [address] [phone] Rhabdomyolysis Social History Tobacco Use Types Packs/Day [...] your loved ones. For example, early childhood associate teacher or elderly care for an [...] AM EDT) WBC 8.9 4.8 - 10.8 K/[facility] LAB HEMETOLOGY METHOD 05/15/2025 11:56 AM [facility] LAB RBC 4.50 4.50 - 5.50 M/mcL LAB HEMETOLOGY METHOD 05/15/2025 11:56 AM [facility] LAB Hemoglobin 14.1 13.5 - 17.5 g/dL LAB HEMETOLOGY METHOD 05/15/2025 11:56 AM [facility] LAB Hematocrit 42.2 42.0 - 54.0 % LAB HEMETOLOGY METHOD 05/15/2025 11:56 AM [facility] LAB MCV 93.4 79.0 - 98.0 FL LAB HEMETOLOGY METHOD 05/15/2025 11:56 AM [facility] LAB MCH 31.2 27.0 - 32.0 pcg LAB HEMETOLOGY METHOD 05/15/2025 11:56 AM [facility] LAB MCHC 33.4 32.0 - 37.0 g/dL LAB HEMETOLOGY METHOD 05/15/2025 11:56 AM [facility] LAB RDW 12.0 11.0 - 15.0 % LAB HEMETOLOGY METHOD 05/15/2025 11:56 AM [facility] LAB Platelets 310 130 - 400 K/mcL LAB HEMETOLOGY METHOD 05/15/2025 11:56 AM [facility] LAB MPV 10.0 7.0 - 11.0 FL LAB HEMETOLOGY METHOD 05/15/2025 11:56 AM [facility] LAB NRBC 0.0 <1.0 % LAB HEMETOLOGY METHOD 05/15/2025 11:56 AM [facility] LAB NRBC Absolute 0.00 <0.10 K/mcL LAB HEMETOLOGY METHOD 05/15/2025 11:56 AM [facility] LAB Blood Venous blood specimen / Unknown Venipuncture / Unknown 05/15/2025 8:53 AM EDT 05/15/2025 11:12 AM EDT us Smitha Mcbride MD LAB BLOOD ORDERABLES Fin al Result [facility] LAB [address] [place] [address], [place] [phone] * (ABNORMAL) Basic metabolic panel (05/15/2025 8:53 AM EDT) Pathologist [facility] Sodium 138 133 - 145 mmol/L LAB CHEMISTRY METHOD 05/15/2025 12:10 PM [facility] LAB Potassium 3.7 3.5 - 5.5 mmol/L LAB CHEMISTRY METHOD 05/15/2025 12:10 PM [facility] LAB Chloride 102 96 - 110 mmol/L LAB CHEMISTRY METHOD 05/15/2025 12:10 PM [facility] LAB CO2 29 21 - 32 mmol/L LAB CHEMISTRY METHOD 05/15/2025 12:10 PM [facility] LAB Anion Gap 7 3 - 11 LAB CHEMISTRY METHOD 05/15/2025 12:10 PM [facility] LAB Glucose 115(H) 70 - 100 mg/dL LAB CHEMISTRY METHOD 05/15/2025 12:10 PM [facility] LAB BUN 13 5 - 25 mg/dL LAB CHEMISTRY METHOD 05/15/2025 12:10 PM [facility] LAB Creatinine 0.79 0.70 - 1.30 mg/dL LAB CHEMISTRY METHOD 05/15/2025 12:10 PM [facility] LAB eGFR 91 >=60 mL/min/1. 73m2 LAB CHEMISTRY METHOD 05/15/2025 12:10 PM [facility] LAB Comment:Calculation based on the Chronic Kidney Disease Epidemiology Collaboration (CKD-EPI) equation refit without adjustment for race. BUN/Creatinine Ratio 16.5 LAB CHEMISTRY METHOD 05/15/2025 12:10 PM [facility] LAB Calcium 9.4 8.5 - 10.5 mg/dL LAB CHEMISTRY METHOD 05/15/2025 12:10 PM EDT [facility] LAB Blood Venous blood specimen / Unknown Venipuncture / Unknown 05/15/2025 8:53 AM EDT 05/15/2025 11:12 AM EDT us Smitha Mcbride MD LAB BLOOD ORDERABLES Fin al Result [facility] LAB [address] [place] [address], documented in this encounter Visit Diagnoses Diagnosis Rhabdomyolysis documented in this encounter Additional Health Concerns Infection Onset Date Last Indicated Resolved Time 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
--- OUTSIDE RECORDS SUMMARY | 2025-09-28 15:43 | XMS_ITS | Encounter Summary ---
Author Organization [facility] Address [address] [place] [address] Care Team Providers Care Melt Room Operator Name Role Phone Av Weathers Primary Care Provider [phone] [phone] Encounter Details Date Type Department Care Team (Late st Contact Info) Description 04/14/2025 Lab Requisition [facility] - Main Lab 299 [facility] [place] [address] Smitha Mcbride MD [address] [phone] Rhabdomyolysis Social History Tobacco Use Types Packs/Day [...] AM EDT) WBC 8.7 4.8 - 10.8 K/[facility] LAB HEMETOLOGY METHOD 04/17/2025 1:31 PM [facility] LAB RBC 3.70(L) 4.50 - 5.50 M/mcL LAB HEMETOLOGY METHOD 04/17/2025 1:31 PM [facility] LAB Hemoglobin 11.7(L) 13.5 - 17.5 g/dL LAB HEMETOLOGY METHOD 04/17/2025 1:31 PM [facility] LAB Hematocrit 36.8(L) 42.0 - 54.0 % LAB HEMETOLOGY METHOD 04/17/2025 1:31 PM [facility] LAB MCV 99.7(H) 79.0 - 98.0 FL LAB HEMETOLOGY METHOD 04/17/2025 1:31 PM [facility] LAB MCH 31.7 27.0 - 32.0 pcg LAB HEMETOLOGY METHOD 04/17/2025 1:31 PM [facility] LAB MCHC 31.8(L) 32.0 - 37.0 g/dL LAB HEMETOLOGY METHOD 04/17/2025 1:31 PM [facility] LAB RDW 12.3 11.0 - 15.0 % LAB HEMETOLOGY METHOD 04/17/2025 1:31 PM [facility] LAB Platelets 370 130 - 400 K/mcL LAB HEMETOLOGY METHOD 04/17/2025 1:31 PM [facility] LAB MPV 10.0 7.0 - 11.0 FL LAB HEMETOLOGY METHOD 04/17/2025 1:31 PM [facility] LAB NRBC 0.0 <1.0 % LAB HEMETOLOGY METHOD 04/17/2025 1:31 PM [facility] LAB NRBC Absolute 0.00 <0.10 K/mcL LAB HEMETOLOGY METHOD 04/17/2025 1:31 PM [facility] LAB Blood Venous blood specimen / Unknown Venipuncture / Unknown 04/17/2025 6:51 AM EDT 04/17/2025 10:30 AM EDT us Smitha Mcbride MD LAB BLOOD ORDERABLES Fin al Result [facility] LAB [address] [place] [address], [place] [phone] * (ABNORMAL) Basic metabolic panel (04/17/2025 6:51 AM EDT) [facility] Sodium 142 133 - 145 mmol/L LAB CHEMISTRY METHOD 04/17/2025 3:07 PM [facility] LAB Potassium 3.7 3.5 - 5.5 mmol/L LAB CHEMISTRY METHOD 04/17/2025 3:07 PM [facility] LAB Chloride 105 96 - 110 mmol/L LAB CHEMISTRY METHOD 04/17/2025 3:07 PM [facility] LAB CO2 32 21 - 32 mmol/L LAB CHEMISTRY METHOD 04/17/2025 3:07 PM [facility] LAB Anion Gap 5 3 - 11 LAB CHEMISTRY METHOD 04/17/2025 3:07 PM [facility] LAB Glucose 117(H) 70 - 100 mg/dL LAB CHEMISTRY METHOD 04/17/2025 3:07 PM [facility] LAB BUN 18 5 - 25 mg/dL LAB CHEMISTRY METHOD 04/17/2025 3:07 PM [facility] LAB Creatinine 0.79 0.70 - 1.30 mg/dL LAB CHEMISTRY METHOD 04/17/2025 3:07 PM [facility] LAB eGFR 91 >=60 mL/min/1. 73m2 LAB CHEMISTRY METHOD 04/17/2025 3:07 PM [facility] LAB Comment:Calculation based on the Chronic Kidney Disease Epidemiology Collaboration (CKD-EPI) equation refit without adjustment for race. BUN/Creatinine Ratio 22.8 LAB CHEMISTRY METHOD 04/17/2025 3:07 PM EDT 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
--- OUTSIDE RECORDS SUMMARY | 2025-09-28 15:43 | XMS_ITS | Encounter Summary ---
Author Organization [facility] Address [address] [place] [address] Care Team Providers Care Closing Coordinator Name Role Phone Av Weathers Primary Care Provider [phone] [phone] Encounter Details Date Type Department Care Team (Late st Contact Info) Description 08/01/2025 Lab Requisition [facility] - Main Lab 299 [facility] [place] [address] Smitha Mcbride MD [address] [phone] Hematuria, unspecified Social History Tobacco Use Types [...] for your loved ones. For example, director maternal child or elderly care for an older [...] reflex microscopic (07/31/2025 12:00 AM ED) Specific [place] Urine 1.016 1.003 - 1.030 LAB URINALYSIS - AUTOMATED METHOD 08/01/2025 12:27 PM [facility] LAB pH, Urine 6.5 5.0 - 8.0 pH LAB URINALYSIS - AUTOMATED METHOD 08/01/2025 12:27 PM [facility] LAB Leukocytes, Urine Large(A) Negative LAB URINALYSIS - AUTOMATED METHOD 08/01/2025 12:27 PM [facility] LAB Nitrite, Urine Negative Negative LAB URINALYSIS - AUTOMATED METHOD 08/01/2025 12:27 PM [facility] LAB Protein, Urine 100(A) <=Trace mg/dL LAB URINALYSIS - AUTOMATED METHOD 08/01/2025 12:27 PM [facility] LAB Glucose, Urine Negative Negative mg/dL LAB URINALYSIS - AUTOMATED METHOD 08/01/2025 12:27 PM [facility] LAB Ketones, Urine Negative Negative mg/dL LAB URINALYSIS - AUTOMATED METHOD 08/01/2025 12:27 PM [facility] LAB Urobilinogen , Urine 1.0 0.2 - 1.0 mg/dL LAB URINALYSIS - AUTOMATED METHOD 08/01/2025 12:27 PM [facility] LAB Bilirubin, Urine Negative Negative LAB URINALYSIS - AUTOMATED METHOD 08/01/2025 12:27 PM [facility] LAB Blood, Urine Large(A) Negative LAB URINALYSIS - AUTOMATED METHOD 08/01/2025 12:27 PM [facility] LAB RBC, Urine 300.0(H) 0 - 4 /HPF LAB URINALYSIS - AUTOMATED METHOD 08/01/2025 12:27 PM [facility] LAB WBC, Urine 565.7(H) 0 - 4 /HPF LAB URINALYSIS - AUTOMATED METHOD 08/01/2025 12:27 PM EDT [facility] Squamous Epithelial, Urine 18 0 - 60 /LPF LAB URINALYSIS - AUTOMATED METHOD 08/01/2025 12:27 PM EDT [facility] LAB Crystals, Urine LT CALCIUM OXALATE /LPF LAB URINALYSIS - AUTOMATED METHOD 08/01/2025 12:27 PM EDT [facility] LAB Bacteria, Urine Few(A) Negative /HPF LAB URINALYSIS - AUTOMATED METHOD 08/01/2025 12:27 PM T [facility] LAB Hyaline Casts, Urine 3.0 0 - 3 /LPF LAB URINALYSIS - AUTOMATED METHOD 08/01/2025 12:27 PM [facility] LAB Urine Urine specimen obtained by clean catch procedure / Unknown Non-blood Collection / Unknown 07/31/2025 08/01/2025 11:04 AM EDT Smitha Mcbride MD LAB URINE ORDERABLES [facility] al Result [facility] LAB [address] [place] [address], * (ABNORMAL) Culture urine (07/31/2025 12:00 AM EDT) Culture, Urine 50,000-100,000 CFU/mL Providencia rettgeri(A) AZEB 08/04/2025 8:35 AM EDT [facility] LAB Comment: The organism value for this result has been updated. These results have been appended to the previously preliminary verified report. This is an edited result. Previous organism was Gram negative bacilli on 08/03/2025 at 1302 EDT. Culture, Urine 10,000-49,000 CFU/mL Vancomycin resistant Enterococcus faecalis(A) AZEB 08/04/2025 8:35 AM EDT [facility] LAB Comment: The organism value [...] - GENER AL ORDERABLES Final Result [facility] LAB [address] [place] [address], documented in this encounter Visit Diagnoses Diagnosis Hematuria, unspecified documented in this encounter Additional Health Concerns Infection Onset Date Last Indicated Resolved Time VRE 07/31/2025 07/31/2025 Assessment Noted Time PHQ-9 Depression Total Score: 0 01/17/20 8:47 AM EDT A fall risk assessment has been complete d for the patient 01/16/2025 8:47 AM EDT documented as of this encounter Care Teams Closing Coordinator Relationship Specialty Start Date End Date Av Weathers PA [address] [place] [address] PCP - General Internal Medicine 12/12/20 documented as of this encounter
--- OUTSIDE RECORDS SUMMARY | 2025-09-28 15:43 | XMS_ITS | Encounter Summary ---
Author Organization [facility] Address [address] [place] [address] Care Team Providers Care Manager Digital Ad Operations Name Role Phone Av Weathers Primary Care Provider [phone] [phone] Encounter Details Date Type Department Care Team (Late st Contact Info) Description 03/05/[address] [facility] - Main Lab 299 [facility] [place] [address] Smitha Mcbride MD [address] [phone] Rhabdomyolysis Social History Tobacco Use Types Packs/Day [...] your loved ones. For example, early childhood lead teacher or elderly care for an [...] AM EDT) WBC 10.7 4.8 - 10.8 K/[facility] LAB HEMETOLOGY METHOD 03/06/2025 10:44 AM [facility] LAB RBC 3.80(L) 4.50 - 5.50 M/mcL LAB HEMETOLOGY METHOD 03/06/2025 10:44 AM [facility] LAB Hemoglobin 12.4(L) 13.5 - 17.5 g/dL LAB HEMETOLOGY METHOD 03/06/2025 10:44 AM [facility] LAB Hematocrit 37.5(L) 42.0 - 54.0 % LAB HEMETOLOGY METHOD 03/06/2025 10:44 AM [facility] LAB MCV 100.0(H) 79.0 - 98.0 FL LAB HEMETOLOGY METHOD 03/06/2025 10:44 AM [facility] LAB MCH 33.1(H) 27.0 - 32.0 pcg LAB HEMETOLOGY METHOD 03/06/2025 10:44 AM [facility] LAB MCHC 33.1 32.0 - 37.0 g/dL LAB HEMETOLOGY METHOD 03/06/2025 10:44 AM [facility] LAB RDW 12.1 11.0 - 15.0 % LAB HEMETOLOGY METHOD 03/06/2025 10:44 AM [facility] LAB Platelets 298 130 - 400 K/mcL LAB HEMETOLOGY METHOD 03/06/2025 10:44 AM [facility] LAB MPV 10.0 7.0 - 11.0 FL LAB HEMETOLOGY METHOD 03/06/2025 10:44 AM [facility] LAB NRBC 0.0 <1.0 % LAB HEMETOLOGY METHOD 03/06/2025 10:44 AM [facility] LAB NRBC Absolute 0.00 <0.10 K/mcL LAB HEMETOLOGY METHOD 03/06/2025 10:44 AM [facility] LAB Blood Venous blood specimen / Unknown Venipuncture / Unknown 03/06/2025 5:30 AM EDT 03/06/2025 10:11 AM EDT us Smitha Mcbride MD LAB BLOOD ORDERABLES Fin al Result [facility] LAB [address] [place] [address], * (ABNORMAL) Basic metabolic panel (03/06/2025 5:30 AM EDT) [facility] Sodium 139 133 - 145 mmol/L LAB CHEMISTRY METHOD 03/06/2025 11:27 AM [facility] LAB Potassium 4.2 3.5 - 5.5 mmol/L LAB CHEMISTRY METHOD 03/06/2025 11:27 AM [facility] Chloride 105 96 - 110 mmol/L LAB CHEMISTRY METHOD 03/06/2025 11:27 AM [facility] CO2 26 21 - 32 mmol/L LAB CHEMISTRY METHOD 03/06/2025 11:27 AM [facility] LAB Anion Gap 8 3 - 11 LAB CHEMISTRY METHOD 03/06/2025 11:27 AM [facility] LAB Glucose 112(H) 70 - 100 mg/dL LAB CHEMISTRY METHOD 03/06/2025 11:27 AM [facility] BUN 24 5 - 25 mg/dL LAB CHEMISTRY METHOD 03/06/2025 11:27 AM [facility] LAB Creatinine 0.89 0.70 - 1.30 mg/dL LAB CHEMISTRY METHOD 03/06/2025 11:27 AM [facility] LAB eGFR 88 >=60 mL/min/1. 73m2 LAB CHEMISTRY METHOD 03/06/2025 11:27 AM [facility] LAB Comment:Calculation based on the Chronic Kidney Disease Epidemiology Collaboration (CKD-EPI) equation refit without adjustment for race. BUN/Creatinine Ratio 27.0 LAB CHEMISTRY METHOD 03/06/2025 11:27 AM EDT [facility] Calcium 9.0 8.5 - 10.5 mg/dL LAB CHEMISTRY METHOD 03/06/2025 11:27 AM EDT [facility] LAB Blood Venous blood specimen / Unknown Venipuncture / Unknown 03/06/2025 5:30 AM EDT 03/06/2025 10:28 AM EDT us Smitha Mcbride MD LAB BLOOD ORDERABLES Fin al Result [facility] [address] [place] [address], documented in this encounter Visit Diagnoses Diagnosis Rhabdomyolysis documented in this encounter Additional Health Concerns Infection Onset Date Last Indicated Resolved Time VRE 07/31/2025 07/31/2025 Assessment Noted Time PHQ-9 Depression Total Score: 0 01/17/20 25 8:47 AM EDT A fall risk assessment has been complete d for the patient 01/16/2025 8:47 AM EDT documented as of this encounter Care Teams Manager Digital Ad Operations Relationship Specialty Start Date End Date Av Weathers PA [address] [place] [id number] PCP - General Internal Medicine 12/12/20 documented as of this encounter
--- OUTSIDE RECORDS SUMMARY | 2025-09-28 15:43 | XMS_ITS | Encounter Summary ---
Author Organization [facility] Address [address] [place] [address] Care Team Providers Care Public Information Officer Name Role Phone Av Weathers Primary Care Provider +1 [phone] Encounter Details Date Type Department Care Team (Late st Contact Info) Description 03/04/2025 Lab Requisition [facility] - Main Lab 299 [facility] [place] [address] Smitha Mcbride MD [address] [phone] Rhabdomyolysis Social History Tobacco Use Types Packs/Day [...] for your loved ones. For example, child day care center worker or elderly care for an older [...] AM EDT) WBC 9.2 4.8 - 10.8 K/[facility] LAB HEMETOLOGY METHOD 03/04/2025 1:08 PM [facility] RBC [...] al Result [facility] [address] [place] [address], * (ABNORMAL) Basic metabolic panel (03/04/2025 10:36 AM EDT) [facility] Sodium 136 133 - 145 mmol/L [...] 1:27 PM [facility] eGFR 93 >=60 mL/min/1. 73m2 LAB CHEMISTRY METHOD 03/04/2025 1:27 PM [facility] Comment:Calculation [...] al Result [facility] [address] [place] [address], documented in this encounter Visit Diagnoses Diagnosis Rhabdomyolysis documented in this encounter Additional Health Concerns Infection Onset Date Last Indicated Resolved Time VRE 07/31/2025 07/31/2025 Assessment Noted Time PHQ-9 Depression Total Score: 0 01/17/20 25 8:47 AM EDT A fall risk assessment has been complete d for the patient 01/16/2025 8:47 AM EDT documented as of this encounter Care Teams Public Information Officer Relationship Specialty Start Date End Date Av Weathers PA [address] [place] [address] PCP - General Internal Medicine 12/12/20 documented as of this encounter
--- OUTSIDE RECORDS SUMMARY | 2025-09-28 15:43 | XMS_ITS | Encounter Summary ---
Author Organization [facility] Address [address] [place] [address] Care Team Providers Care Yarn Handler Name Role Phone Av Weathers Primary Care Provider +1 [phone] Encounter Details Date Type Department Care Team (Late st Contact Info) Description 06/19/2025 Lab Requisition [facility] - Main Lab 299 [facility] [place] [address] Smitha Mcbride MD [address] [phone] Other intermediate card tender (current) drug therapy Social History Tobacco Use [...] for your loved ones. For example, child psychometrist or elderly care for an older adult? [...] LEVEL Routine 06/19/2025 8:56 AM EDT Other intermediate card tender (current) drug therapy documented in this encounter Results * Digoxin level (06/19/2025 8:56 AM EDT) Digoxin Lvl 0.7 0.5 - 2.0 ng/mL LAB CHEMISTRY METHOD 06/19/2025 2:07 PM EDT [facility] Blood Venous blood specimen / Unknown Venipuncture / Unknown 06/19/2025 8:56 AM EDT 06/19/2025 11:28 AM EDT us Smitha Mcbride MD LAB BLOOD ORDERABLES Fin al Result [facility] [address] [place] [address], documented in this encounter Visit Diagnoses Diagnosis Other intermediate card tender (current) drug therapy documented in this encounter Additional Health Concerns Infection Onset Date Last Indicated Resolved Time VRE 07/31/2025 07/31/2025 Assessment Noted Time PHQ-9 Depression Total Score: 0 01/17/20 25 8:47 AM EDT A fall risk assessment has been complete d for the patient 01/16/2025 8:47 AM EDT documented as of this encounter Care Teams Yarn Handler Relationship Specialty Start Date End Date Av Weathers PA [address] [place] [address] PCP - General Internal Medicine 12/12/20 documented as of this encounter
--- OUTSIDE RECORDS SUMMARY | 2025-09-28 15:44 | XMS_ITS | Encounter Summary ---
Author Organization [facility] Address [address] [place] [address] Care Team Providers Care Procurement Clerk Name Role Phone Av Weathers Primary Care Provider +1 [phone] Encounter Details Date Type Department Care Team (Late st Contact Info) Description 06/14/2025 Lab Requisition [facility] - Main Lab 299 [facility] [place] [id number] Smitha Mcbride MD [address] [phone] Unspecified atrial fibrillation (CMS/HCC V24, CMS/HCC V28); [...] your loved ones. For example, child life specialist or elderly care for an older [...] Digoxin level (06/14/2025 6:47 AM EDT) Pathologist [facility] Digoxin Lvl 0.8 0.5 - 2.0 ng/mL LAB CHEMISTRY METHOD 06/14/2025 11:00 AM EDT [facility] Comment:Results verified by repeat testing Blood Venous blood specimen / Unknown Venipuncture / Unknown 06/14/2025 6:47 AM EDT 06/14/2025 9:12 AM EDT us Smitha Mcbride MD LAB BLOOD ORDERABLES Fin al Result [facility] [address] [place] [address], * (ABNORMAL) Comprehensive metabolic panel (06/14/2025 6:47 AM EDT) Pathologist [facility] Sodium 138 133 - 145 mmol/L LAB CHEMISTRY METHOD 06/14/2025 10:17 AM EDT [facility] Potassium 3.9 3.5 - 5.5 mmol/L LAB CHEMISTRY METHOD 06/14/2025 10:17 AM EDT [facility] Chloride 103 96 - 110 mmol/L LAB CHEMISTRY METHOD 06/14/2025 10:17 AM EDT [facility] CO2 32 21 - 32 mmol/L LAB CHEMISTRY METHOD 06/14/2025 10:17 AM EDT [facility] Anion Gap 3 3 - 11 LAB CHEMISTRY METHOD 06/14/2025 10:17 AM [facility] Glucose 115(H) 70 - 100 mg/dL LAB CHEMISTRY METHOD 06/14/2025 10:17 AM [facility] BUN 18 5 - 25 mg/dL LAB CHEMISTRY METHOD 06/14/2025 10:17 AM [facility] Creatinine 0.87 0.70 - 1.30 mg/dL LAB CHEMISTRY METHOD 06/14/2025 10:17 AM [facility] eGFR 89 >=60 mL/min/1. 73m2 LAB CHEMISTRY METHOD 06/14/2025 10:17 AM [facility] Comment:Calculation based on the Chronic Kidney Disease Epidemiology Collaboration (CKD-EPI) equation refit without adjustment for race. BUN/Creatinine Ratio 20.7 LAB CHEMISTRY METHOD 06/14/2025 10:17 AM [facility] Calcium 9.2 8.5 - 10.5 mg/dL LAB CHEMISTRY METHOD 06/14/2025 10:17 AM [facility] AST (SGOT) 17 10 - 42 unit/L LAB CHEMISTRY METHOD 06/14/2025 10:17 AM [facility] ALT (SGPT) 19 10 - 60 unit/L LAB CHEMISTRY METHOD 06/14/2025 10:17 AM [facility] Alkaline Phosphatase 82 42 - 121 unit/L LAB CHEMISTRY METHOD 06/14/2025 10:17 AM [facility] Total Protein 6.4 6.0 - 8.0 g/dL LAB CHEMISTRY METHOD 06/14/2025 10:17 AM [facility] Albumin 3.4 3.2 - 5.0 g/dL LAB CHEMISTRY METHOD 06/14/2025 10:17 AM [facility] Total Bilirubin 0.6 0.0 - 1.4 mg/dL LAB CHEMISTRY METHOD 06/14/2025 10:17 AM [facility] Blood Venous blood specimen / Unknown Venipuncture / Unknown 06/14/2025 6:47 AM EDT 06/14/2025 9:12 AM EDT Smitha Mcbride MD LAB BLOOD ORDERABLES Fin al Result [facility] [address] [place] [address], * (ABNORMAL) Complete blood count (06/14/2025 6:47 AM EDT) WBC 10.0 4.8 - 10.8 K/mcL LAB HEMETOLOGY METHOD 06/14/2025 9:39 AM [facility] RBC 4.20(L) 4.50 - 5.50 M/mcL LAB HEMETOLOGY METHOD 06/14/2025 9:39 AM [facility] Hemoglobin 12.7(L) 13.5 - 17.5 g/dL LAB HEMETOLOGY METHOD 06/14/2025 9:39 AM [facility] Hematocrit 39.3(L) 42.0 - 54.0 % LAB HEMETOLOGY METHOD 06/14/2025 9:39 AM [facility] MCV 93.8 79.0 - 98.0 FL LAB HEMETOLOGY METHOD 06/14/2025 9:39 AM [facility] MCH 30.3 27.0 - 32.0 pcg LAB HEMETOLOGY METHOD 06/14/2025 9:39 AM [facility] MCHC 32.3 32.0 - 37.0 g/dL LAB HEMETOLOGY METHOD 06/14/2025 9:39 AM [facility] RDW 12.1 11.0 - 15.0 % LAB HEMETOLOGY METHOD 06/14/2025 9:39 AM [facility] Platelets 286 130 - 400 K/mcL LAB HEMETOLOGY METHOD 06/14/2025 9:39 AM EDT [facility] MPV 9.7 7.0 - 11.0 FL LAB HEMETOLOGY METHOD 06/14/2025 9:39 AM EDT [facility] NRBC 0.0 <1.0 % LAB HEMETOLOGY METHOD 06/14/2025 9:39 AM EDT [facility] NRBC Absolute 0.00 <0.10 K/mcL LAB HEMETOLOGY METHOD 06/14/2025 9:39 AM EDT [facility] Blood Venous blood specimen / Unknown Venipuncture / Unknown 06/14/2025 6:47 AM EDT 06/14/2025 9:12 AM EDT us Smitha Mcbride MD LAB BLOOD ORDERABLES Fin al Result [facility] [address] [place] [address], documented in this encounter Visit Diagnoses Diagnosis [...] documented as of this encounter Care Teams Procurement Clerk Relationship Specialty Start Date End Date Av Weathers PA [address] [place] [address] PCP - General Internal Medicine 12/12/20 documented as of this encounter
--- OUTSIDE RECORDS SUMMARY | 2025-09-28 15:44 | XMS_ITS | Encounter Summary ---
Author Organization [facility] Address [address] [place] [address] Care Team Providers Care Shoveler Name Role Phone Av Weathers Primary Care Provider +1 [phone] Encounter Details Date Type Department Care Team (Late st Contact Info) Description 02/13/2025 Lab Requisition [facility] - Main Lab 299 [facility] [place] [address] Smitha Mcbride MD [address] [phone] Vitamin D deficiency, unspecified Social History Tobacco [...] LAB CHEMISTRY METHOD 02/13/2025 2:53 PM EDT [facility] Blood Venous blood specimen / Unknown Venipuncture / Unknown 02/13/2025 9:38 AM EDT 02/13/2025 12:10 PM EDT Smitha Mcbride MD LAB BLOOD ORDERABLES Fin al Result Performing Organization Address City/[facility]/ZIP Co de Phone Number [facility] [address] [place] [address], [place] [phone] * (ABNORMAL) Folate (02/13/2025 9:38 AM EDT) [facility] Folate 19.0(H) 2.8 - 17.0 ng/ml LAB CHEMISTRY METHOD 02/13/2025 2:17 PM EDT [facility] Blood Venous blood specimen / Unknown Venipuncture / Unknown 02/13/2025 9:38 AM EDT 02/13/2025 12:10 PM EDT Smitha Mcbride MD LAB BLOOD ORDERABLES Fin al Result Performing Organization Address City/[facility]/ZIP Co de Phone Number [facility] [address] [place] [address], [place] [phone] * Vitamin B12 (02/13/2025 9:38 AM EDT) Pathologist [facility] Vitamin B-12 636 250 - 900 pcg/mL LAB CHEMISTRY METHOD 02/13/2025 2:17 PM EDT [facility] Blood Venous blood specimen / Unknown Venipuncture / Unknown 02/13/2025 9:38 AM EDT 02/13/2025 12:10 PM EDT Smitha Mcbride MD LAB BLOOD ORDERABLES Fin al Result [facility]) [facility] [address] [place] [address], documented in this encounter Visit Diagnoses Diagnosis Vitamin D deficiency, unspecified documented in this encounter Additional Health Concerns Infection Onset Date Last Indicated Resolved Time VRE 07/31/2025 07/31/2025 Assessment Noted Time PHQ-9 Depression Total Score: 0 01/17/20 25 8:47 AM EDT A fall risk assessment has been complete d for the patient 01/16/2025 8:47 AM EDT documented as of this encounter Care Teams Shoveler Relationship Specialty Start Date End Date Av Weathers PA [address] [place] [address] PCP - General Internal Medicine 12/12/20 documented as of this encounter
--- OUTSIDE RECORDS SUMMARY | 2025-09-28 15:44 | XMS_ITS | Encounter Summary ---
Author Organization [facility] Address [address] [place] [address] Care Team Providers Care Forklift Material Handler Name Role Phone Av Weathers Primary Care Provider +1 -[phone] Encounter Details Date Type Department Care Team (Late st Contact Info) Description 06/10/2025 Lab Requisition [facility] - Main Lab 299 [facility] [place] [address] Smitha Mcbride MD [address] [phone] Rhabdomyolysis; Impaired fasting glucose Social History Tobacco [...] * Hemoglobin A1c (06/12/2025 9:45 AM EDT) [facility] Hemoglobin A1C 6.2 <6.5 % LAB CHEMISTRY METHOD 06/13/2025 8:35 AM EDT [facility] Mean Bld Glu Estim. 131 mg/dL LAB CHEMISTRY METHOD 06/13/2025 8:35 AM EDT [facility] Blood Venous blood specimen / Unknown Venipuncture / Unknown 06/12/2025 9:45 AM EDT 06/12/2025 12:06 PM EDT us Smitha Mcbride MD LAB BLOOD ORDERABLES Fin al Result [facility] [address] [place] [address], [place] [phone] * (ABNORMAL) Complete blood count (06/12/2025 9:45 AM EDT) [facility] WBC 7.8 4.8 - 10.8 K/mcL LAB HEMETOLOGY METHOD 06/12/2025 1:10 PM EDT [facility] RBC 4.20(L) 4.50 - 5.50 M/mcL LAB HEMETOLOGY METHOD 06/12/2025 1:10 PM EDT [facility] Hemoglobin 13.1(L) 13.5 - 17.5 g/dL LAB HEMETOLOGY METHOD 06/12/2025 1:10 PM EDT [facility] Hematocrit 39.3(L) 42.0 - 54.0 % LAB HEMETOLOGY METHOD 06/12/2025 1:10 PM EDT [facility] MCV 93.1 79.0 - 98.0 FL LAB HEMETOLOGY METHOD 06/12/2025 1:10 PM EDT [facility] MCH 31.0 27.0 - 32.0 pcg LAB HEMETOLOGY METHOD 06/12/2025 1:10 PM EDT [facility] MCHC 33.3 32.0 - 37.0 g/dL LAB HEMETOLOGY METHOD 06/12/2025 1:10 PM EDT [facility] RDW 12.2 11.0 - 15.0 % LAB HEMETOLOGY METHOD 06/12/2025 1:10 PM EDT [facility] Platelets 290 130 - 400 K/mcL LAB HEMETOLOGY METHOD 06/12/2025 1:10 PM EDT [facility] MPV 9.9 7.0 - 11.0 FL LAB HEMETOLOGY METHOD 06/12/2025 1:10 PM EDT [facility] NRBC 0.0 <1.0 % LAB HEMETOLOGY METHOD 06/12/2025 1:10 PM EDT [facility] NRBC Absolute 0.00 <0.10 K/mcL LAB HEMETOLOGY METHOD 06/12/2025 1:10 PM EDT [facility] Blood Venous blood specimen / Unknown Venipuncture / Unknown 06/12/2025 9:45 AM EDT 06/12/2025 12:06 PM EDT Smitha Mcbride MD LAB BLOOD ORDERABLES Fin al Result [facility] [address] [place] [address], * (ABNORMAL) Basic metabolic panel (06/12/2025 9:45 AM EDT) Sodium 139 133 - 145 mmol/L LAB CHEMISTRY METHOD 06/12/2025 2:57 PM EDT [facility] Potassium 4.0 3.5 - 5.5 mmol/L LAB CHEMISTRY METHOD 06/12/2025 2:57 PM EDT [facility] Chloride 105 96 - 110 mmol/L LAB CHEMISTRY METHOD 06/12/2025 2:57 PM EDT [facility] CO2 28 21 - 32 mmol/L LAB CHEMISTRY METHOD 06/12/2025 2:57 PM EDT [facility] Anion Gap 6 3 - 11 LAB CHEMISTRY METHOD 06/12/2025 2:57 PM EDT [facility] Glucose 121(H) 70 - 100 mg/dL LAB CHEMISTRY METHOD 06/12/2025 2:57 PM EDT [facility] BUN 16 5 - 25 mg/dL LAB CHEMISTRY METHOD 06/12/2025 2:57 PM EDT [facility] Creatinine 0.80 0.70 - 1.30 mg/dL LAB CHEMISTRY METHOD 06/12/2025 2:57 PM EDT [facility] eGFR 91 >=60 mL/min/1. 73m2 LAB CHEMISTRY METHOD 06/12/2025 2:57 PM EDT [facility] Comment:Calculation based on the Chronic Kidney Disease Epidemiology Collaboration (CKD-EPI) equation refit without adjustment for race. BUN/Creatinine Ratio 20.0 LAB CHEMISTRY METHOD 06/12/2025 2:57 PM EDT [facility] Calcium 9.0 8.5 - 10.5 mg/dL LAB CHEMISTRY METHOD 06/12/2025 2:57 PM EDT [facility] Blood Venous blood specimen / Unknown Venipuncture / Unknown 06/12/2025 9:45 AM EDT 06/12/2025 12:06 PM EDT us Smitha Mcbride MD LAB BLOOD ORDERABLES Fin al Result [facility] [address] [place] [address], documented in this encounter Visit Diagnoses Diagnosis Rhabdomyolysis Impaired fasting glucose documented in this encounter Additional Health Concerns Infection Onset Date Last Indicated Resolved Time VRE 07/31/2025 07/31/2025 Assessment Noted Time PHQ-9 Depression Total Score: 0 01/17/20 8:47 AM EDT A fall risk assessment has been complete d for the patient 01/16/2025 8:47 AM EDT documented as of this encounter Care Teams Forklift Material Handler Relationship Specialty Start Date End Date Av Weathers PA [address] [place] [address] PCP - General Internal Medicine 12/12/20 documented as of this encounter
--- OUTSIDE RECORDS SUMMARY | 2025-09-28 15:44 | XMS_ITS | Encounter Summary ---
Author Organization [facility] Address [address] [place] [address] Care Team Providers Care Door Attendant Name Role Phone Av Weathers Primary Care Provider +1 -[phone] Encounter Details Date Type Department Care Team (Late st Contact Info) Description 06/15/2025 Lab Requisition [facility] - Main Lab 299 [facility] [place] [address] Smitha Mcbride MD [address] [phone] Essential (primary) hypertension; Other specified disorders of [...] your loved ones. For example, child nutrition manager or elderly care for an older [...] natriuretic peptide (06/15/2025 6:37 AM EDT) Pathologist [facility] BNP 192(H) <=100 pcg/mL LAB CHEMISTRY METHOD 06/15/2025 9:41 AM EDT [facility] Blood Venous blood specimen / Unknown Venipuncture / Unknown 06/15/2025 6:37 AM EDT 06/15/2025 8:25 AM EDT us Smitha Mcbride MD LAB BLOOD ORDERABLES Fin al Result [facility] [address] [place] [address], [place] [phone] * (ABNORMAL) Basic metabolic panel (06/15/2025 6:37 AM EDT) [facility] Sodium 139 133 - 145 mmol/L LAB CHEMISTRY METHOD 06/15/2025 9:43 AM [facility] Potassium 3.7 3.5 - 5.5 mmol/L LAB CHEMISTRY METHOD 06/15/2025 9:43 AM [facility] Chloride 103 96 - 110 mmol/L LAB CHEMISTRY METHOD 06/15/2025 9:43 AM [facility] CO2 31 21 - 32 mmol/L LAB CHEMISTRY METHOD 06/15/2025 9:43 AM [facility] Anion Gap 5 3 - 11 LAB CHEMISTRY METHOD 06/15/2025 9:43 AM [facility] Glucose 118(H) 70 - 100 mg/dL LAB CHEMISTRY METHOD 06/15/2025 9:43 AM [facility] BUN 18 5 - 25 mg/dL LAB CHEMISTRY METHOD 06/15/2025 9:43 AM [facility] Creatinine 0.77 0.70 - 1.30 mg/dL LAB CHEMISTRY METHOD 06/15/2025 9:43 AM EDT [facility] eGFR 92 >=60 mL/min/1. 73m2 LAB CHEMISTRY METHOD 06/15/2025 9:43 AM EDT [facility] Comment:Calculation based on the Chronic Kidney Disease Epidemiology Collaboration (CKD-EPI) equation refit without adjustment for race. BUN/Creatinine Ratio 23.4 LAB CHEMISTRY METHOD 06/15/2025 9:43 AM EDT [facility] Calcium 9.2 8.5 - 10.5 mg/dL LAB CHEMISTRY METHOD 06/15[facility]2025 9[facility]43 [facility] Blood Venous blood specimen / Unknown Venipuncture / Unknown 06/15/2025 6:37 AM EDT 06/15/2025 8:25 AM EDT Smitha Mcbride MD LAB BLOOD ORDERABLES Fin al Result [facility] [address] [place] [address], * (ABNORMAL) Complete blood count (06/15/2025 6:37 AM EDT) WBC 9.0 4.8 - 10.8 K/mcL LAB HEMETOLOGY METHOD 06/15/2025 9:05 AM [facility] RBC 4.10(L) 4.50 - 5.50 M/[facility] LAB HEMETOLOGY METHOD 06/15/2025 9:05 AM [facility] Hemoglobin 12.5(L) 13.5 - 17.5 g/dL LAB HEMETOLOGY METHOD 06/15/2025 9:05 AM [facility] Hematocrit 38.3(L) 42.0 - 54.0 % LAB HEMETOLOGY METHOD 06/15/2025 9:05 [facility] MCV 92.7 79.0 - 98.0 FL LAB HEMETOLOGY METHOD 06/15/2025 9:05 AM EDT [facility] MCH 30.3 27.0 - 32.0 pcg LAB HEMETOLOGY METHOD 06/15/2025 9:05 AM EDT [facility] MCHC 32.6 32.0 - 37.0 g/dL LAB HEMETOLOGY METHOD 06/15/2025 9:05 AM EDT [facility] RDW 12.0 11.0 - 15.0 % LAB HEMETOLOGY METHOD 06/15/2025 9:05 AM EDT [facility] Platelets 288 130 - 400 K/mcL LAB HEMETOLOGY METHOD 06/15/2025 9:05 AM [facility] MPV 9.8 7.0 - 11.0 FL LAB HEMETOLOGY METHOD 06/15/2025 9:05 AM EDT [facility] NRBC 0.0 <1.0 % LAB HEMETOLOGY METHOD 06/15/2025 9:05 AM [facility] NRBC Absolute 0.00 <0.10 K/mcL LAB HEMETOLOGY METHOD 06/15/2025 9:05 AM [facility] Blood Venous blood specimen / Unknown Venipuncture / Unknown 06/15/2025 6:37 AM EDT 06/15/2025 8:25 AM EDT us Smitha Mcbride MD LAB BLOOD ORDERABLES Fin al Result [facility] [address] [place] [address], documented in this encounter Visit Diagnoses Diagnosis [...] documented as of this encounter Care Teams Door Attendant Relationship Specialty Start Date End Date Av Weathers PA [address] [place] [address] PCP - General Internal Medicine 12/12/20 documented as of this encounter
--- OUTSIDE RECORDS SUMMARY | 2025-09-28 15:44 | XMS_ITS | Encounter Summary ---
Author Organization [facility] Address [address] [place] [address] Care Team Providers Care Butcher Name Role Phone Av Weathers Primary Care Provider +1 [phone] Encounter Details Date Type Department Care Team (Late st Contact Info) Description 09/22/2025 Lab Requisition [facility] - Main Lab 299 [facility] [place] [id number] Smitha Mcbride MD [address] [phone] Infection and inflammatory reaction due to internal right hip prosthesis, subsequent encounter Social History Tobacco Use Types Packs/Day [...] for your loved ones. For example, children's ministries director or elderly care for an older [...] Diagnosis Comments URINALYSIS WITH REFLEX MICROSCOPIC Routine 09/21/2025 7:00 AM EST Infection and inflammatory reaction due to internal right hip prosthesis, subsequent encounter URINALYSIS WITH REFLEX MICROSCOPIC Routine 09/21/2025 7:00 AM EST Infection and inflammatory reaction due to internal right hip prosthesis, subsequent encounter CULTURE URINE Routine 09/21/2025 7:00 AM EST Infection and inflammatory reaction due to internal right hip prosthesis, subsequent encounter documented in this encounter Results * (ABNORMAL) Urinalysis with reflex microscopic (09/21/2025 7:00 AM EST) Specific [place] Urine 1.016 1.003 - 1.030 LAB URINALYSIS - AUTOMATED METHOD 09/22/2025 11:30 AM [facility] pH, Urine 6.0 5.0 - 8.0 pH LAB URINALYSIS - AUTOMATED METHOD 09/22/2025 11:30 AM [facility] Leukocytes, Urine Large(A) Negative LAB URINALYSIS - AUTOMATED METHOD 09/22/2025 11:30 AM [facility] Nitrite, Urine Negative Negative LAB URINALYSIS - AUTOMATED METHOD 09/22/2025 11:30 AM [facility] Protein, Urine 100(A) <=Trace mg/dL LAB URINALYSIS - AUTOMATED METHOD 09/22/2025 11:30 AM [facility] Glucose, Urine Negative Negative mg/dL LAB URINALYSIS - AUTOMATED METHOD 09/22/2025 11:30 AM [facility] Ketones, Urine Negative Negative mg/dL LAB URINALYSIS - AUTOMATED METHOD 09/22/2025 11:30 AM [facility] Urobilinogen , Urine 1.0 0.2 - 1.0 mg/dL LAB URINALYSIS - AUTOMATED METHOD 09/22/2025 11:30 AM [facility] Bilirubin, Urine Negative Negative LAB URINALYSIS - AUTOMATED METHOD 09/22/2025 11:30 AM [facility] Blood, Urine Large(A) Negative LAB URINALYSIS - AUTOMATED METHOD 09/22/2025 11:30 AM [facility] RBC, Urine >100(H) 0 - 4 /HPF 09/22/2025 11:30 AM [facility] WBC, Urine >100(H) 0 - 4 /HPF 09/22/2025 11:30 AM EST [facility] Squamous Epithelial, Urine 30 0 - 60 /LPF 09/22/2025 11:30 AM EST [facility] Bacteria, Urine Moderate(A) Negative /HPF 09/22/2025 11:30 AM EST [facility] Urine Urine specimen obtained by clean catch procedure / Unknown Non-blood Collection / Unknown 09/21/2025 7:00 AM EST 09/22/2025 9:26 AM EST Smitha Mcbride MD LAB URINE ORDERABLES Fin al Result Performing Organization Address City/[facility] Co de Phone Number [facility] [address] [place] [address], [place] [phone] * (ABNORMAL) Culture urine (09/21/2025 7:00 AM EST) Culture, Urine >=100,000 CFU/mL Pseudomonas aeruginosa(A) AZEB 09/24/2025 10:46 AM EST [facility] Comment: This is an edited result. Previous organism was Gram negative bacilli on 09/23/2025 at 0822 EST. Urine Urine specimen obtained by clean catch procedure / Unknown Non-blood Collection / Unknown 09/21/2025 7:00 AM EST 09/22/2025 9:26 AM EST Narrative [facility] - 09/24/2025 10:46 AM EST Additional colony types present in insignificant amounts. Organism Antibiotic Method Susceptibility Pseudomonas aeruginosa Piperacillin/Tazobactam AZEB 8 ug/ml: Susceptible Pseudomonas aeruginosa Ceftazidime AZEB 2 ug/ml: Susceptible Pseudomonas aeruginosa Cefepime AZEB 2 ug/ml: Susceptible Pseudomonas aeruginosa Meropenem AZEB 1 ug/ml: Susceptible Pseudomonas aeruginosa Amikacin AZEB 2 ug/ml: Susceptible Pseudomonas aeruginosa Ciprofloxacin AZEB 0.12 ug/ml: Susceptible Pseudomonas aeruginosa Levofloxacin AZEB 0.5 ug/ml: Susceptible Smitha Mcbride MD LAB MICROBIOLOGY - GENER AL ORDERABLES Final Result [facility] [address] [place] [address], documented in this encounter Visit Diagnoses Diagnosis Infection and inflammatory reaction due to internal right hip prosthesis, subsequent encounter documented in this encounter Additional Health Concerns Infection Onset Date Last Indicated Resolved Time VRE 07/31/2025 07/31/2025 Assessment Noted Time PHQ-9 Depression Total Score: 0 01/17/20 25 8:47 AM EDT A fall risk assessment has been complete d for the patient 01/16/2025 8:47 AM EDT documented as of this encounter Care Teams Butcher Relationship Specialty Start Date End Date Av Weathers PA [address] [place] [id number] PCP - General Internal Medicine 12/12/20 documented as of this encounter
--- OUTSIDE RECORDS SUMMARY | 2025-09-28 15:44 | XMS_ITS | Encounter Summary ---
Author Organization [facility] Address [address] [place] [address] Care Team Providers Care Regional Sales Trainer Name Role Phone Av Weathers Primary Care Provider [phone] [phone] Encounter Details Date Type Department Care Team (Late st Contact Info) Description 05/21/2025 Lab Requisition [facility] - Main Lab 299 [facility] [place] [address] Smitha Mcbride MD [address] [phone] Rhabdomyolysis Social History Tobacco Use Types Packs/Day [...] for your loved ones. For example, children's court magistrate or elderly care for an older adult? [...] AM EDT) WBC 9.5 4.8 - 10.8 K/[facility] LAB HEMETOLOGY METHOD 05/22/2025 1:07 PM [facility] RBC 4.10(L) 4.50 - 5.50 M/mcL LAB HEMETOLOGY METHOD 05/22/2025 1:07 PM [facility] Hemoglobin 12.6(L) 13.5 - 17.5 g/dL LAB HEMETOLOGY METHOD 05/22/2025 1:07 PM [facility] Hematocrit 38.9(L) 42.0 - 54.0 % LAB HEMETOLOGY METHOD 05/22/2025 1:07 PM [facility] MCV 94.2 79.0 - 98.0 FL LAB HEMETOLOGY METHOD 05/22/2025 1:07 PM [facility] MCH 30.5 27.0 - 32.0 pcg LAB HEMETOLOGY METHOD 05/22/2025 1:07 PM [facility] MCHC 32.4 32.0 - 37.0 g/dL LAB HEMETOLOGY METHOD 05/22/2025 1:07 [facility] RDW 12.3 11.0 - 15.0 % LAB HEMETOLOGY METHOD 05/22/2025 1:07 PM [facility] Platelets 265 130 - 400 K/mcL LAB HEMETOLOGY METHOD 05/22/2025 1:07 PM [facility] MPV 10.2 7.0 - 11.0 FL LAB HEMETOLOGY METHOD 05/22/2025 1:07 PM [facility] NRBC 0.0 <1.0 % LAB HEMETOLOGY METHOD 05/22/2025 1:07 PM [facility] NRBC Absolute 0.00 <0.10 K/mcL LAB HEMETOLOGY METHOD 05/22/2025 1:07 PM [facility] Blood Venous blood specimen / Unknown Venipuncture / Unknown 05/22/2025 5:42 AM EDT 05/22/2025 11:11 AM EDT us Smitha Mcbride MD LAB BLOOD ORDERABLES Fin al Result [facility] [address] [place] [address], [place] [phone] * (ABNORMAL) Basic metabolic panel (05/22/2025 5:42 AM EDT) Sodium 139 133 - 145 mmol/L LAB CHEMISTRY METHOD [facility] 12:[facility] Potassium 3.5 3.5 - 5.5 mmol/L LAB CHEMISTRY METHOD 05/22/2025 12:45 PM [facility] Chloride 102 96 - 110 mmol/L LAB CHEMISTRY METHOD 05/22/2025 12:45 PM [facility] CO2 28 21 - 32 mmol/L LAB CHEMISTRY METHOD 05/22/2025 12:45 PM [facility] Anion Gap 9 3 - 11 LAB CHEMISTRY METHOD 05/22/2025 12:45 PM [facility] Glucose 142(H) 70 - 100 mg/dL LAB CHEMISTRY METHOD 05/22/2025 12:45 PM [facility] BUN 17 5 - 25 mg/dL LAB CHEMISTRY METHOD 05/22/2025 12:45 PM [facility] Creatinine 0.84 0.70 - 1.30 mg/dL LAB CHEMISTRY METHOD 05/22/2025 12:45 PM [facility] eGFR 90 >=60 mL/min/1. 73m2 LAB CHEMISTRY METHOD 05/22/2025 12:45 PM [facility] Comment:Calculation based on the Chronic Kidney Disease Epidemiology Collaboration (CKD-EPI) equation refit without adjustment for race. BUN/Creatinine Ratio 20.2 LAB CHEMISTRY METHOD 05/22/2025 12:[address] [facility] Calcium 9.4 8.5 - 10.5 mg/dL LAB CHEMISTRY METHOD 05/22/2025 12:[address] [facility] Blood Venous blood specimen / Unknown Venipuncture / Unknown 05/22/2025 5:42 AM EDT 05/22/2025 11:11 AM EDT us Smitha Mcbride MD LAB BLOOD ORDERABLES Fin al Result [facility] [address] [place] [address], documented in this encounter Visit Diagnoses Diagnosis Rhabdomyolysis documented in this encounter Additional Health Concerns Infection Onset Date Last Indicated Resolved Time VRE 07/31/2025 07/31/2025 Assessment Noted Time PHQ-9 Depression Total Score: 0 01/17/20 25 8:47 AM EDT A fall risk assessment has been complete d for the patient 01/16/2025 8:47 AM EDT documented as of this encounter Care Teams Regional Sales Trainer Relationship Specialty Start Date End Date Av Weathers PA [address] [place] [id number] PCP - General Internal Medicine 12/12/20 documented as of this encounter
--- OUTSIDE RECORDS SUMMARY | 2025-09-28 15:44 | XMS_ITS | Encounter Summary ---
Author Organization [facility] Address [address] [place] [address] Care Team Providers Care Volunteer Services Manager Name Role Phone Av Weathers Primary Care Provider [phone] [phone] Encounter Details Date Type Department Care Team (Late st Contact Info) Description 04/29/2025 Lab Requisition [facility] - Main Lab 299 [facility] [place] [address] Smitha Mcbride MD [address] [phone] Vitamin D deficiency, unspecified; Rhabdomyolysis Social History [...] for your loved ones. For example, children's ministry director or elderly care for an older [...] Complete blood count (05/01/2025 6:37 AM EDT) [facility] WBC 10.1 4.8 - 10.8 K/mcL LAB HEMETOLOGY METHOD 05/01/2025 12:09 PM [facility] RBC 4.00(L) 4.50 - 5.50 M/mcL LAB HEMETOLOGY METHOD 05/01/2025 12:09 PM [facility] Hemoglobin 12.3(L) 13.5 - 17.5 g/dL LAB HEMETOLOGY METHOD 05/01/2025 12:09 PM [facility] Hematocrit 38.7(L) 42.0 - 54.0 % LAB HEMETOLOGY METHOD 05/01/2025 12:09 PM [facility] MCV 96.8 79.0 - 98.0 FL LAB HEMETOLOGY METHOD 05/01/2025 12:09 PM [facility] MCH 30.8 27.0 - 32.0 pcg LAB HEMETOLOGY METHOD 05/01/2025 12:09 PM [facility] MCHC 31.8(L) 32.0 - 37.0 g/dL LAB HEMETOLOGY METHOD 05/01/2025 12:09 PM [facility] RDW 12.5 11.0 - 15.0 % LAB HEMETOLOGY METHOD 05/01/2025 12:09 PM [facility] Platelets 309 130 - 400 K/mcL LAB HEMETOLOGY METHOD 05/01/2025 12:09 PM [facility] MPV 9.8 7.0 - 11.0 FL LAB HEMETOLOGY METHOD 05/01/2025 12:09 PM [facility] NRBC 0.0 <1.0 % LAB HEMETOLOGY METHOD 05/01/2025 12:09 PM [facility] NRBC Absolute 0.00 <0.10 K/mcL LAB HEMETOLOGY METHOD 05/01/2025 12:09 PM [facility] Blood Venous blood specimen / Unknown Venipuncture / Unknown 05/01/2025 6:37 AM EDT 05/01/2025 10:49 AM EDT us Smitha Mcbride MD LAB BLOOD ORDERABLES Fin al Result [facility] [address] [place] [address], [place] [phone] * Basic metabolic panel (05/01/2025 6:37 AM EDT) Sodium 139 133 - 145 mmol/L LAB CHEMISTRY METHOD 05/01/2025 11:59 AM [facility] Potassium 4.0 3.5 - 5.5 mmol/L LAB CHEMISTRY METHOD 05/01/2025 11:59 AM [facility] Chloride 102 96 - 110 mmol/L LAB CHEMISTRY METHOD 05/01/2025 11:59 AM [facility] CO2 31 21 - 32 mmol/L LAB CHEMISTRY METHOD 05/01/2025 11:59 AM [facility] Anion Gap 6 3 - 11 LAB CHEMISTRY METHOD 05/01/2025 11:59 AM [facility] Glucose 87 70 - 100 mg/dL LAB CHEMISTRY METHOD 05/01/2025 11:59 AM [facility] BUN 15 5 - 25 mg/dL LAB CHEMISTRY METHOD 05/01/2025 11:59 AM [facility] Creatinine 0.96 0.70 - 1.30 mg/dL LAB CHEMISTRY METHOD 05/01/2025 11:59 AM [facility] eGFR 81 >=60 mL/min/1. 73m2 LAB CHEMISTRY METHOD 05/01/2025 11:59 AM EDT [facility] Comment:Calculation based on the Chronic Kidney Disease Epidemiology Collaboration (CKD-EPI) equation refit without adjustment for race. BUN/Creatinine Ratio 15.6 LAB CHEMISTRY METHOD 05/01/2025 11:59 AM EDT [facility] Calcium 9.3 8.5 - 10.5 mg/dL LAB CHEMISTRY METHOD 05/01/2025 11:59 AM EDT [facility] Blood Venous blood specimen / Unknown Venipuncture / Unknown 05/01/2025 6:37 AM EDT 05/01/2025 10:49 AM EDT Smitha Mcbride MD LAB BLOOD ORDERABLES Fin al Result Performing Organization Address [facility] Co de Phone Number [facility] [address] [place] [address], [place] [phone] * Vitamin D 25 hydroxy (05/01/2025 6:37 AM EDT) [facility] Vit D, 25-Hydroxy 44.1 30.0 - 80.0 ng/mL LAB CHEMISTRY METHOD 05/01/2025 1:24 PM EDT [facility] Blood Venous blood specimen / Unknown Venipuncture / Unknown 05/01/2025 6:37 AM EDT 05/01/2025 10:49 AM EDT Smitha Mcbride MD LAB BLOOD ORDERABLES Fin al Result [facility] [address] [place] [address], [place] [phone] documented in this encounter Visit Diagnoses Diagnosis Vitamin D deficiency, unspecified Rhabdomyolysis documented in this encounter Additional Health Concerns Infection Onset Date Last Indicated Resolved Time VRE 07/31/2025 07/31/2025 Assessment Noted Time PHQ-9 Depression Total Score: 0 01/17/20 8:47 AM EDT A fall risk assessment has been complete d for the patient 01/16/2025 8:47 AM EDT documented as of this encounter Care Teams Volunteer Services Manager Relationship Specialty Start Date End Date Av Weathers PA [address] [place] [address] PCP - General Internal Medicine 12/12/20 documented as of this encounter
--- OUTSIDE RECORDS SUMMARY | 2025-09-28 15:44 | XMS_ITS | Encounter Summary ---
Author Organization [facility] Address [address] [place] [address] Care Team Providers Care Quilting Machine Helper Name Role Phone Av Weathers Primary Care Provider +1 [phone] Encounter Details Date Type Department Care Team (Late st Contact Info) Description 02/24/2025 Lab Requisition [facility] - Main Lab 299 [facility] [place] [address] Physician, Pcp Unknown Dysuria Social [...] your loved ones. For example, early childhood teacher assistant or elderly care for an older [...] reflex microscopic (02/24/2025 12:00 AM EDT) Specific [place] Urine 1.013 1.003 - 1.030 LAB URINALYSIS - AUTOMATED METHOD 02/24/2025 8:[address] [facility] pH, Urine 5.5 5.0 - 8.0 pH LAB URINALYSIS - AUTOMATED METHOD 02/24/2025 8:[address] [facility] Leukocytes, Urine Trace(A) Negative LAB URINALYSIS - AUTOMATED METHOD 02/24/2025 8:[address] [facility] Nitrite, Urine Negative Negative LAB URINALYSIS - AUTOMATED METHOD 02/24/2025 8:[address] [facility] Protein, Urine Negative <=Trace mg/dL LAB URINALYSIS - AUTOMATED METHOD 02/24/2025 8:[address] [facility] Glucose, Urine Negative Negative mg/dL LAB URINALYSIS - AUTOMATED METHOD 02/24/2025 8:[address] [facility] Ketones, Urine Negative Negative mg/dL LAB URINALYSIS - AUTOMATED METHOD 02/24/2025 8:[address] [facility] Urobilinogen , Urine 0.2 0.2 - 1.0 mg/dL LAB URINALYSIS - AUTOMATED METHOD 02/24/2025 8:[address] [facility] Bilirubin, Urine Negative Negative LAB URINALYSIS - AUTOMATED METHOD 02/24/2025 8:[address] [facility] Blood, Urine Moderate(A) Negative LAB URINALYSIS - AUTOMATED METHOD 02/24/2025 8:[address] [facility] RBC, Urine 8.3(H) 0 - 4 /HPF LAB URINALYSIS - AUTOMATED METHOD 02/24/2025 8:[address] [facility] WBC, Urine 5.1(H) 0 - 4 /HPF LAB URINALYSIS - AUTOMATED METHOD 02/24/2025 8:[address] [facility] Squamous Epithelial, Urine 19 0 - 60 /LPF LAB URINALYSIS - AUTOMATED METHOD 02/24/2025 8:[address] [facility] Bacteria, Urine Negative Negative /HPF LAB URINALYSIS - AUTOMATED METHOD 02/24/2025 8:25 PM EDT [facility] Hyaline Casts, Urine 0.4 0 - 3 /LPF LAB URINALYSIS - AUTOMATED METHOD 02/24/2025 8:25 PM EDT [facility] Urine Urine specimen obtained by clean catch procedure / Unknown 02/24/2025 02/24/2025 7:41 PM EDT us Pcp Unknown Physician LAB URINE ORDERABLES Final Result [facility] [address] [place] [address], [place] [phone] * (ABNORMAL) Culture urine (02/24/2025 12:00 AM EDT) Culture, Urine >100,000 CFU/mL Enterococcus faecalis(A) AZEB 02/26/2025 10:48 AM EDT [facility] Comment: Edited result: Previously reported [...] LAB MICROBIOLOGY - GENERAL ORDERABLES Final Result [facility] [address] [place] [address], [place] [phone] documented in this encounter Visit Diagnoses Diagnosis Dysuria documented in this encounter Additional Health Concerns Infection Onset Date Last 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
--- OUTSIDE RECORDS SUMMARY | 2025-09-28 15:44 | XMS_ITS | Encounter Summary ---
Author Organization [facility] Address [address] [place] [address] Care Team Providers Care Electronic Instrument Trades Worker Name Role Phone Av Weathers Primary Care Provider +1 [phone] Encounter Details Date Type Department Care Team (Late st Contact Info) Description 02/25/2025 Lab Requisition [facility] - Main Lab 299 [facility] [place] [address] Smitha Mcbride MD [address] [phone] Elevated white blood cell count, unspecified Social [...] Complete blood count (02/25/2025 5:47 AM EDT) [facility] Signature WBC 12.5(H) 4.8 - 10.8 K/[facility] LAB HEMETOLOGY METHOD 02/25/2025 11:50 AM EDT [facility] RBC 3.90(L) 4.50 - 5.50 M/mcL LAB HEMETOLOGY METHOD 02/25/2025 11:50 AM [facility] Hemoglobin 12.6(L) 13.5 - 17.5 g/dL LAB HEMETOLOGY METHOD 02/25/2025 11:50 AM [facility] Hematocrit 38.4(L) 42.0 - 54.0 % LAB HEMETOLOGY METHOD 02/25/2025 11:50 AM [facility] MCV 98.2(H) 79.0 - 98.0 FL LAB HEMETOLOGY METHOD 02/25/2025 11:50 AM [facility] MCH 32.2(H) 27.0 - 32.0 pcg LAB HEMETOLOGY METHOD 02/25/2025 11:50 AM [facility] MCHC 32.8 32.0 - 37.0 g/dL LAB HEMETOLOGY METHOD 02/25/2025 11:50 AM [facility] RDW 12.0 11.0 - 15.0 % LAB HEMETOLOGY METHOD 02/25/2025 11:50 AM [facility] Platelets 368 130 - 400 K/mcL LAB HEMETOLOGY METHOD 02/25/2025 11:50 AM [facility] MPV 10.1 7.0 - 11.0 FL LAB HEMETOLOGY METHOD 02/25/2025 11:50 AM [facility] NRBC 0.0 <1.0 % LAB HEMETOLOGY METHOD 02/25/2025 11:50 AM [facility] NRBC Absolute 0.00 <0.10 K/mcL LAB HEMETOLOGY METHOD 02/25/2025 11:50 AM [facility] Blood Venous blood specimen / Unknown Venipuncture / Unknown 02/25/2025 5:47 AM EDT 02/25/2025 11:30 AM EDT us Smitha Mcbride MD LAB BLOOD ORDERABLES Fin al Result [facility] [address] [place] [address], documented in this encounter Visit Diagnoses Diagnosis [...] documented as of this encounter Care Teams Electronic Instrument Trades Worker Relationship Specialty Start Date End Date Av Weathers PA [address] [place] [address] PCP - General Internal Medicine 12/12/20 documented as of this encounter
--- OUTSIDE RECORDS SUMMARY | 2025-09-28 15:44 | XMS_ITS | Encounter Summary ---
Author Organization [facility] Address [address] [place] [address] Care Team Providers Care Storage Battery Charger Name Role Phone Av Weathers Primary Care Provider [phone] [phone] Encounter Details Date Type Department Care Team (Late st Contact Info) Description 03/10/[address] [facility] - Main Lab [address] [facility] [place] [address] Smitha Mcbride MD [address] [id number] Rhabdomyolysis Social History Tobacco Use Types Packs/Day [...] for your loved ones. For example, child adolescent care or elderly care for an older [...] AM EDT) WBC 9.0 4.8 - 10.8 K/[facility] LAB HEMETOLOGY METHOD 03/13/2025 1:11 PM [facility] LAB RBC 3.80(L) 4.50 - 5.50 M/mcL LAB HEMETOLOGY METHOD 03/13/2025 1:11 PM [facility] LAB Hemoglobin 12.2(L) 13.5 - 17.5 g/dL LAB HEMETOLOGY METHOD 03/13/2025 1:11 PM [facility] LAB Hematocrit 37.3(L) 42.0 - 54.0 % LAB HEMETOLOGY METHOD 03/13/2025 1:11 PM [facility] LAB MCV 97.4 79.0 - 98.0 FL LAB HEMETOLOGY METHOD 03/13/2025 1:11 PM [facility] LAB MCH 31.9 27.0 - 32.0 pcg LAB HEMETOLOGY METHOD 03/13/2025 1:11 PM [facility] LAB MCHC 32.7 32.0 - 37.0 g/dL LAB HEMETOLOGY METHOD 03/13/2025 1:11 PM [facility] LAB RDW 11.9 11.0 - 15.0 % LAB HEMETOLOGY METHOD 03/13/2025 1:11 PM [facility] LAB Platelets 334 130 - 400 K/mcL LAB HEMETOLOGY METHOD 03/13/2025 1:11 PM [facility] LAB MPV 10.2 7.0 - 11.0 FL LAB HEMETOLOGY METHOD 03/13/2025 1:11 PM [facility] LAB NRBC 0.0 <1.0 % LAB HEMETOLOGY METHOD 03/13/2025 1:11 PM [facility] LAB NRBC Absolute 0.00 <0.10 K/mcL LAB HEMETOLOGY METHOD 03/13/2025 1:11 PM [facility] Blood Venous blood specimen / Unknown Venipuncture / Unknown 03/13/2025 6:21 AM EDT 03/13/2025 10:29 AM EDT Smitha Mcbride MD LAB BLOOD ORDERABLES Fin al Result [facility] [address] [place] [address], [place] [phone] * (ABNORMAL) Basic metabolic panel (03/13/2025 6:21 AM EDT) Sodium 137 133 - 145 mmol/L LAB CHEMISTRY METHOD 03/13/2025 11:52 AM [facility] LAB Potassium 4.2 3.5 - 5.5 mmol/L LAB CHEMISTRY METHOD 03/13/2025 11:52 AM [facility] Chloride 103 96 - 110 mmol/L LAB CHEMISTRY METHOD 03/13/2025 11:52 AM [facility] CO2 29 21 - 32 mmol/L LAB CHEMISTRY METHOD 03/13/2025 11:52 AM [facility] LAB Anion Gap 5 3 - 11 LAB CHEMISTRY METHOD 03/13/2025 11:52 AM [facility] LAB Glucose 109(H) 70 - 100 mg/dL LAB CHEMISTRY METHOD 03/13/2025 11:52 AM [facility] BUN 13 5 - 25 mg/dL LAB CHEMISTRY METHOD 03/13/2025 11:52 AM [facility] LAB Creatinine 0.66(L) 0.70 - 1.30 mg/dL LAB CHEMISTRY METHOD 03/13/2025 11:52 AM [facility] LAB eGFR 97 >=60 mL/min/1. 73m2 LAB CHEMISTRY METHOD 03/13/2025 11:52 AM [facility] LAB Comment:Calculation based on the Chronic Kidney Disease Epidemiology Collaboration (CKD-EPI) equation refit without adjustment for race. 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
--- OUTSIDE RECORDS SUMMARY | 2025-09-28 15:44 | XMS_ITS | Encounter Summary ---
Author Organization [facility] Address [address] [place] [address] Care Team Providers Care Ripshear Operator Name Role Phone Av Weathers Primary Care Provider [phone] [phone] Encounter Details Date Type Department Care Team (Late st Contact Info) Description 03/17/2025 Lab Requisition [facility] - Main Lab [address] [facility] [place] [address] Smitha Mcbride MD [address] [phone] Rhabdomyolysis Social History Tobacco Use Types Packs/Day [...] your loved ones. For example, child and youth program assistant or elderly care for an older [...] AM EDT) WBC 10.0 4.8 - 10.8 K/[facility] LAB HEMETOLOGY METHOD 03/20/2025 11:03 AM [facility] RBC 3.50(L) 4.50 - 5.50 M/mcL LAB HEMETOLOGY METHOD 03/20/2025 11:03 AM [facility] LAB Hemoglobin 11.2(L) 13.5 - 17.5 g/dL LAB HEMETOLOGY METHOD 03/20/2025 11:03 AM [facility] LAB Hematocrit 34.8(L) 42.0 - 54.0 % LAB HEMETOLOGY METHOD 03/20/2025 11:03 AM [facility] LAB MCV 99.4(H) 79.0 - 98.0 FL LAB HEMETOLOGY METHOD 03/20/2025 11:03 AM [facility] LAB MCH 32.0 27.0 - 32.0 pcg LAB HEMETOLOGY METHOD 03/20/2025 11:03 AM [facility] LAB MCHC 32.2 32.0 - 37.0 g/dL LAB HEMETOLOGY METHOD 03/20/2025 11:03 AM [facility] LAB RDW 11.9 11.0 - 15.0 % LAB HEMETOLOGY METHOD 03/20/2025 11:03 AM [facility] LAB Platelets 330 130 - 400 K/mcL LAB HEMETOLOGY METHOD 03/20/2025 11:03 AM [facility] LAB MPV 10.2 7.0 - 11.0 FL LAB HEMETOLOGY METHOD 03/20/2025 11:03 AM [facility] LAB NRBC 0.0 <1.0 % LAB HEMETOLOGY METHOD 03/20/2025 11:03 AM [facility] LAB NRBC Absolute 0.00 <0.10 K/mcL LAB HEMETOLOGY METHOD 03/20/2025 11:03 AM [facility] Blood Venous blood specimen / Unknown Venipuncture / Unknown 03/20/2025 5:51 AM EDT 03/20/2025 10:45 AM EDT us Smitha Mcbride MD LAB BLOOD ORDERABLES Fin al Result [facility] [address] [place] [address], [place] [phone] * (ABNORMAL) Basic metabolic panel (03/20/2025 5:51 AM EDT) Pathologist [facility] Sodium 141 133 - 145 mmol/L LAB CHEMISTRY METHOD 03/20/2025 1:01 PM [facility] Potassium 4.0 3.5 - 5.5 mmol/L LAB CHEMISTRY METHOD 03/20/2025 1:01 PM [facility] Chloride 104 96 - 110 mmol/L LAB CHEMISTRY METHOD 03/20/2025 1:01 PM [facility] CO2 30 21 - 32 mmol/L LAB CHEMISTRY METHOD 03/20/2025 1:01 PM [facility] Anion Gap 7 3 - 11 LAB CHEMISTRY METHOD 03/20/2025 1:01 PM [facility] Glucose 115(H) 70 - 100 mg/dL LAB CHEMISTRY METHOD 03/20/2025 1:01 PM [facility] BUN 14 5 - 25 mg/dL LAB CHEMISTRY METHOD 03/20/2025 1:01 PM [facility] LAB Creatinine 0.74 0.70 - 1.30 mg/dL LAB CHEMISTRY METHOD 03/20/2025 1:01 PM [facility] LAB eGFR 93 >=60 mL/min/1. 73m2 LAB CHEMISTRY METHOD 03/20/2025 1:01 PM [facility] LAB Comment:Calculation based on the Chronic Kidney Disease Epidemiology Collaboration (CKD-EPI) equation refit without adjustment for race. BUN/Creatinine Ratio 18.9 LAB CHEMISTRY METHOD 03/20/2025 1:01 PM EDT [facility] Calcium 8.6 8.5 - 10.5 mg/dL LAB CHEMISTRY METHOD 03/20/2025 1:01 PM EDT [facility] Blood Venous blood specimen / Unknown Venipuncture / Unknown 03/20/2025 5:51 AM EDT 03/20/2025 10:45 AM EDT us Smitha Mcbride MD LAB BLOOD ORDERABLES Fin al Result [facility] [address] [place] [address], documented in this encounter Visit Diagnoses Diagnosis Rhabdomyolysis documented in this encounter Additional Health Concerns Infection Onset Date Last Indicated Resolved Time 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
--- OUTSIDE RECORDS SUMMARY | 2025-09-28 15:44 | XMS_ITS | Clinical Summary ---
Author Organization [address] Address [address] [place] [address] [place] [address] Phone Care Team Providers Care Aboriginal Ceremonial Celebrant Name Role Phone Av Weathers Primary Care Provider [phone] [phone] Allergies No known active allergies Medications thiamine [...] Encounters Date Type Department Care Team Description 09/27/2025 Lab Requisition [facility] [address] [place] [phone] Smitha Mcbride MD Disorientation, unspecified 09/25/2025 Lab Requisition [facility] [address] [place] [phone] Smitha Mcbride MD Benign prostatic hyperplasia without lower urinary tract symptoms; Hypokalemia 09/22/2025 Lab Requisition [facility] [address] [place] [phone] Smitha Mcbride MD Benign prostatic hyperplasia with lower urinary tract symptoms; Essential (primary) hypertension 09/22/2025 Lab Requisition [facility] [address] [place] [phone] Smitha Mcbride MD Infection and inflammatory reaction due to internal right hip prosthesis, subsequent encounter 09/12/2025 Lab Requisition [facility] [address] [place] [phone] Smitha Mcbride MD Essential (primary) hypertension; Unspecified atrial fibrillation (CMS/HCC V24, CMS/HCC V28); Personal history of transient ischemic attack (TIA), and 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 residual deficits 08/28/2025 Lab Requisition [facility] Lab [address] [place] [phone] Smitha Mcbride MD Benign prostatic hyperplasia without lower urinary tract symptoms 08/01/2025 Lab Requisition [facility] [address] [facility] [place] [address] Smitha Mcbride MD Hematuria, unspecified 07/04/[address] [phone] Av Weathers PA from Last 3 Months [...] for your loved ones. For example, child neurologist or elderly care for an older adult? [...] 01/16/2026 01/16/2025 Hypertension/CHF/CAD Annual BMP Blood Test 09/25/2026 09/27/2025, 09/25/2025, 09/22/2025, Additional history exists Cholesterol Screening (Lipid Panel) [...] Diagnosis Comments CBC WITH AUTO DIFFERENTIAL Routine 09/27/2025 7:00 AM EST Disorientation, unspecified COMPREHENSIVE METABOLIC PANEL Routine 09/27/2025 7:00 AM EST Disorientation, unspecified CBC AND DIFFERENTIAL Routine 09/27/2025 7:00 AM EST Disorientation, unspecified MAGNESIUM Routine 09/25/2025 8:11 AM EST Benign prostatic hyperplasia without lower urinary tract symptoms Hypokalemia BASIC METABOLIC PANEL Routine 09/25/2025 8:11 AM EST Benign prostatic hyperplasia without lower urinary tract symptoms Hypokalemia BASIC METABOLIC PANEL Routine 09/22/2025 5:15 AM EST Benign prostatic hyperplasia with lower urinary tract symptoms Essential (primary) hypertension COMPLETE BLOOD COUNT Routine 09/22/2025 5:15 AM EST Benign prostatic hyperplasia with lower urinary tract symptoms Essential (primary) hypertension URINALYSIS WITH REFLEX MICROSCOPIC Routine 09/21/2025 7:00 AM EST Infection and inflammatory reaction due to internal right hip prosthesis, subsequent encounter URINALYSIS WITH REFLEX MICROSCOPIC Routine 09/21/2025 7:00 AM EST Infection and inflammatory reaction due to internal right hip prosthesis, subsequent encounter CULTURE URINE Routine 09/21/2025 7:00 AM EST Infection and inflammatory reaction due to internal right hip prosthesis, subsequent encounter COMPREHENSIVE METABOLIC PANEL Routine 09/13/2025 5:40 AM [...] Maintenance Results * (ABNORMAL) CBC auto differential (09/27/2025 7:00 AM EST) [facility] WBC 14.6(H) 4.8 - 10.8 K/mcL LAB HEMETOLOGY METHOD 09/27/2025 8:33 AM [facility] LAB RBC 4.20(L) 4.50 - 5.50 M/mcL LAB HEMETOLOGY METHOD 09/27/2025 8:33 AM [facility] LAB Hemoglobin 13.0(L) 13.5 - 17.5 g/dL LAB HEMETOLOGY METHOD 09/27/2025 8:33 AM [facility] LAB Hematocrit 38.3(L) 42.0 - 54.0 % LAB HEMETOLOGY METHOD 09/27/2025 8:33 AM [facility] LAB MCV 91.0 79.0 - 98.0 FL LAB HEMETOLOGY METHOD 09/27/2025 8:33 AM [facility] LAB MCH 30.9 27.0 - 32.0 pcg LAB HEMETOLOGY METHOD 09/27/2025 8:33 AM [facility] LAB MCHC 33.9 32.0 - 37.0 g/dL LAB HEMETOLOGY METHOD 09/27/2025 8:33 AM [facility] LAB RDW 12.7 11.0 - 15.0 % LAB HEMETOLOGY METHOD 09/27/2025 8:33 AM [facility] LAB Platelets 485(H) 130 - 400 K/mcL LAB HEMETOLOGY METHOD 09/27/2025 8:33 AM [facility] MPV 9.7 7.0 - 11.0 FL LAB HEMETOLOGY METHOD 09/27/2025 8:33 AM [facility] LAB NRBC 0.0 <1.0 % LAB HEMETOLOGY METHOD 09/27/2025 8:33 AM [facility] LAB NRBC Absolute 0.00 <0.10 K/mcL LAB HEMETOLOGY METHOD 09/27/2025 8:33 AM [facility] Neutrophils Relative 70.0 % LAB HEMETOLOGY METHOD 09/27/2025 8:33 AM [facility] Lymphocytes Relative 21.0 % LAB HEMETOLOGY METHOD 09/27/2025 8:33 AM [facility] Monocytes Relative 5.2 % LAB HEMETOLOGY METHOD 09/27/2025 8:33 AM [facility] Eosinophils Relative 2.5 % LAB HEMETOLOGY METHOD 09/27/2025 8:33 AM [facility] Basophils Relative 0.5 % LAB HEMETOLOGY METHOD 09/27/2025 8:33 AM [facility] Immature Granulocytes Relative 0.8 % LAB HEMETOLOGY METHOD 09/27/2025 8:33 AM [facility] Neutrophils Absolute 10.18(H) 1.50 - 7.00 K/mcL LAB HEMETOLOGY METHOD 09/27/2025 8:33 AM [facility] Lymphocytes Absolute 3.06 1.00 - 5.00 K/mcL LAB HEMETOLOGY METHOD 09/27/2025 8:33 AM [facility] Monocytes Absolute 0.76 0.20 - 1.00 K/mcL LAB HEMETOLOGY METHOD 09/27/2025 8:33 AM [facility] Eosinophils Absolute 0.37 0.00 - 0.50 K/mcL LAB HEMETOLOGY METHOD 09/27/2025 8:33 AM [facility] Basophils Absolute 0.08 0.00 - 0.20 K/mcL LAB HEMETOLOGY METHOD 09/27/2025 8:33 AM [facility] Immature Granulocytes Absolute 0.11(H) 0.00 - 0.03 K/mcL LAB HEMETOLOGY METHOD 09/27/2025 8:33 AM EST [facility] Blood Venous blood specimen / Unknown Venipuncture / Unknown 09/27/2025 7:00 AM EST 09/27/2025 8:05 AM EST us Smitha Mcbride MD LAB BLOOD ORDERABLES Fin al Result [facility] [address] [place] [address], [place] [phone] * (ABNORMAL) Comprehensive metabolic panel (09/27/2025 7:00 AM EST) Only the most recent of2 resultswithin the time period is included. Sodium 140 133 - 145 mmol/L 09/27/2025 8:48 AM [facility] Potassium 4.3 3.5 - 5.5 mmol/L 09/27/2025 8:48 AM [facility] Chloride 99 96 - 110 mmol/L 09/27/2025 8:48 AM [facility] CO2 28 21 - 32 mmol/L 09/27/2025 8:48 AM [facility] Anion Gap 13(H) 3 - 11 09/27/2025 8:48 AM [facility] Glucose 135(H) 70 - 100 mg/dL 09/27/2025 8:48 AM [facility] BUN 17 5 - 25 mg/dL 09/27/2025 8:48 AM [facility] Creatinine 0.78 0.70 - 1.30 mg/dL 09/27/2025 8:48 AM [facility] eGFR 92 >=60 mL/min/1. 73m2 09/27/2025 8:48 AM [facility] Comment:Calculation based on the Chronic Kidney Disease Epidemiology Collaboration (CKD-EPI) equation refit without adjustment for race. BUN/Creatinine Ratio 21.8 09/27/2025 8:48 AM [facility] Calcium 9.2 8.5 - 10.5 mg/dL 09/27/2025 8:48 AM [facility] AST (SGOT) 22 10 - 42 unit/L 09/27/2025 8:48 AM [facility] ALT (SGPT) 21 10 - 60 unit/L 09/27/2025 8:48 AM [facility] Alkaline Phosphatase 99 42 - 121 unit/L 09/27/2025 8:48 AM [facility] Total Protein 7.3 6.0 - 8.0 g/dL 09/27/2025 8:48 AM [facility] Albumin 3.8 3.2 - 5.0 g/dL 09/27/2025 8:48 AM [facility] Total Bilirubin 1.0 0.0 - 1.4 mg/dL 09/27/2025 8:48 AM [facility] Blood Venous blood specimen / Unknown Venipuncture / Unknown 09/27/2025 7:00 AM EST 09/27/2025 8:05 AM EST Smitha Mcbride MD LAB BLOOD ORDERABLES Fin al Result [facility] [address] [place] [address], * Magnesium (09/25/2025 8:11 AM EST) Magnesium 1.9 1.9 - 2.6 mg/dL 09/25/2025 12:22 PM [facility] Blood Venous blood specimen / Unknown Venipuncture / Unknown 09/25/2025 8:11 AM EST 09/25/2025 11:27 AM EST Smitha Mcbride MD LAB BLOOD ORDERABLES Fin al Result [facility] [address] [place] [address], * (ABNORMAL) Basic metabolic panel (09/25/2025 8:11 AM EST) Only the most recent of2 resultswithin the time period is included. Sodium 137 133 - 145 mmol/L 09/25/2025 12:22 PM [facility] Potassium 4.7 3.5 - 5.5 mmol/L 09/25/2025 12:22 PM [facility] Comment:Hemolysis present Chloride 96 96 - 110 mmol/L 09/25/2025 12:22 PM [facility] CO2 28 21 - 32 mmol/L 09/25/2025 12:22 PM [facility] Anion Gap 13(H) 3 - 11 09/25/2025 12:22 PM [facility] Glucose 139(H) 70 - 100 mg/dL 09/25/2025 12:22 PM [facility] BUN 13 5 - 25 mg/dL 09/25/2025 12:22 PM [facility] Creatinine 0.85 0.70 - 1.30 mg/dL 09/25/2025 12:22 PM [facility] eGFR 89 >=60 mL/min/1. 73m2 09/25/2025 12:22 PM [facility] Comment:Calculation based on the Chronic Kidney Disease Epidemiology Collaboration (CKD-EPI) equation refit without adjustment for race. BUN/Creatinine Ratio 15.3 09/25/2025 12:22 PM [facility] Calcium 8.8 8.5 - 10.5 mg/dL 09/25/2025 12:22 PM [facility] Blood Venous blood specimen / Unknown Venipuncture / Unknown 09/25/2025 8:11 AM EST 09/25/2025 11:27 AM EST us Smitha Mcbride MD LAB BLOOD ORDERABLES Fin al Result [facility] [address] [place] [address], [place] [phone] * (ABNORMAL) Complete blood count (09/22/2025 5:15 AM EST) Only the most recent of2 resultswithin the time period is included. WBC 15.5(H) 4.8 - 10.8 K/mcL LAB HEMETOLOGY METHOD 09/22/2025 3:12 PM [facility] RBC 4.10(L) 4.50 - 5.50 M/mcL LAB HEMETOLOGY METHOD 09/22/2025 3:12 PM [facility] Hemoglobin 12.5(L) 13.5 - 17.5 g/dL LAB HEMETOLOGY METHOD 09/22/2025 3:12 PM [facility] Hematocrit 38.1(L) 42.0 - 54.0 % LAB HEMETOLOGY METHOD 09/22/2025 3:12 PM [facility] MCV 93.2 79.0 - 98.0 FL LAB HEMETOLOGY METHOD 09/22/2025 3:12 PM [facility] MCH 30.6 27.0 - 32.0 pcg LAB HEMETOLOGY METHOD 09/22/2025 3:12 PM [facility] MCHC 32.8 32.0 - 37.0 g/dL LAB HEMETOLOGY METHOD 09/22/2025 3:12 PM [facility] RDW 13.3 11.0 - 15.0 % LAB HEMETOLOGY METHOD 09/22/2025 3:12 PM [facility] Platelets 293 130 - 400 K/mcL LAB HEMETOLOGY METHOD 09/22/2025 3:12 PM EST [facility] MPV 10.7 7.0 - 11.0 FL LAB HEMETOLOGY METHOD 09/22/2025 3:12 PM EST [facility] NRBC 0.0 <1.0 % LAB HEMETOLOGY METHOD 09/22/2025 3:12 PM [facility] NRBC Absolute 0.00 <0.10 K/mcL LAB HEMETOLOGY METHOD 09/22/2025 3:12 PM EST [facility] Blood Venous blood specimen / Unknown Venipuncture / Unknown 09/22/2025 5:15 AM EST 09/22/2025 9:08 AM EST us Smitha Mcbride MD LAB BLOOD ORDERABLES Fin al Result [facility] [address] [place] [address], * (ABNORMAL) Urinalysis with reflex microscopic (09/21/2025 7:00 AM EST) Only the most recent of2 resultswithin the time period is included. Specific [place] Urine 1.016 1.003 - 1.030 LAB URINALYSIS - AUTOMATED METHOD 09/22/2025 11:30 AM [facility] pH, Urine 6.0 5.0 - 8.0 pH LAB URINALYSIS - AUTOMATED METHOD 09/22/2025 11:30 AM [facility] Leukocytes, Urine Large(A) Negative LAB URINALYSIS - AUTOMATED METHOD 09/22/2025 11:30 AM [facility] Nitrite, Urine Negative Negative LAB URINALYSIS - AUTOMATED METHOD 09/22/2025 11:30 AM [facility] Protein, Urine 100(A) <=Trace mg/dL LAB URINALYSIS - AUTOMATED METHOD 09/22/2025 11:30 AM [facility] Glucose, Urine Negative Negative mg/dL LAB URINALYSIS - AUTOMATED METHOD 09/22/2025 11:30 AM [facility] Ketones, Urine Negative Negative mg/dL LAB URINALYSIS - AUTOMATED METHOD 09/22/2025 11:30 AM [facility] Urobilinogen , Urine 1.0 0.2 - 1.0 mg/dL LAB URINALYSIS - AUTOMATED METHOD 09/22/2025 11:30 AM [facility] Bilirubin, Urine Negative Negative LAB URINALYSIS - AUTOMATED METHOD 09/22/2025 11:30 AM [facility] Blood, Urine Large(A) Negative LAB URINALYSIS - AUTOMATED METHOD 09/22/2025 11:30 AM [facility] RBC, Urine >100(H) 0 - 4 /HPF 09/22/2025 11:30 AM [facility] WBC, Urine >100(H) 0 - 4 /HPF 09/22/2025 11:30 AM [facility] Squamous Epithelial, Urine 30 0 - 60 /LPF 09/22/2025 11:30 AM [facility] Bacteria, Urine Moderate(A) Negative /HPF 09/22/2025 11:30 AM [facility] Urine Urine specimen obtained by clean catch procedure / Unknown Non-blood Collection / Unknown 09/21/2025 7:00 AM EST 09/22/2025 9:26 AM EST us Smitha Mcbride MD LAB URINE ORDERABLES Fin al Result [facility] [address] [place] [address], * (ABNORMAL) Culture urine (09/21/2025 7:00 AM EST) Only the most recent of2 resultswithin the time period is included. Culture, Urine >=100,000 CFU/mL Pseudomonas aeruginosa(A) AZEB 09/24/2025 10:46 AM EST [facility] Comment: This is an edited result. Previous organism was Gram negative bacilli on 09/23/2025 at 0822 EST. Urine Urine specimen obtained by clean catch procedure / Unknown Non-blood Collection / Unknown 09/21/2025 7:00 AM EST 09/22/2025 9:26 AM EST [facility] - 09/24/2025 10:46 AM EST Additional [...] Pseudomonas aeruginosa Levofloxacin AZEB 0.5 ug/ml: Susceptible us Smitha Mcbride MD LAB MICROBIOLOGY - GENER AL ORDERABLES Final Result [facility] [address] [place] [address], * (ABNORMAL) PSA total, free and complexed (08/28/2025 8:09 AM EST) PSA 1.83 0.00 - 4.00 ng/mL 08/28/2025 11:26 AM EST [facility] PSA, Complexed 1.81 0.00 - 3.00 ng/mL 08/28/2025 11:26 AM [facility] PSA, Free 0.0 ng/mL 08/28/2025 11:26 AM [facility] PSA, Free Pct 0.0(L) >25.0 % 08/28/2025 11:26 AM EST [facility] Comment:Free PSA is a calcul ated value. The diagnostic usefulness of % free PSA has not been established in patients with Total PSA below 2.6 or above 10 ng/mL. Blood Venous blood specimen / Unknown Venipuncture / Unknown 08/28/2025 8:09 AM EST 08/28/2025 10:17 AM EST Smitha Mcbride MD LAB BLOOD ORDERABLES Fin al Result [facility] [address] [place] [address], * (ABNORMAL) Lipid panel (07/13/2024) LDL/HDL Ratio 2 0 - 4 Triglycerides 98 0 - 150 mg/dL Cholesterol 202(A) 0 - 200 mg/dL HDL 87 >=40 mg/dL LDL Cholesterol 96 0 - 100 mg/dL Blood Venous blood specimen / Unknown Historical Provider LAB BLOOD ORDERABLES Bobbi l Result * Hepatitis C Screening (11/06/2022) Hepatitis C Screening abstracted Historical Provider HEALTH MAINTENANCE Final Result from Last 3 Months or Most Recently Relevant to Health Maintenance Additional Health Concerns Infection Onset Date Last Indicated 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
--- OUTSIDE RECORDS SUMMARY | 2025-09-28 15:44 | XMS_ITS | Encounter Summary ---
Author Organization [facility] Address [address] [place] [address] Care Team Providers Care Welder Apprentice Name Role Phone Av Weathers Primary Care Provider [phone] Encounter Details Date Type Department Care Team (Late st Contact Info) Description 03/02/2025 Lab Requisition [facility] Lab [address] [facility] [place] [address] Smitha Mcbride MD [address] [id number] Rhabdomyolysis Social History Tobacco Use Types Packs/Day [...] mmol/L LAB CHEMISTRY METHOD 03/02/2025 11:14 AM [facility] Potassium 4.0 3.5 - 5.5 mmol/L LAB CHEMISTRY METHOD 03/02/2025 11:14 AM [facility] Chloride 105 96 - 110 mmol/L LAB CHEMISTRY METHOD 03/02/2025 11:14 AM [facility] CO2 28 21 - 32 mmol/L LAB CHEMISTRY METHOD 03/02/2025 11:14 AM [facility] Anion Gap 6 3 - 11 LAB CHEMISTRY METHOD 03/02/2025 11:14 AM [facility] Glucose 121(H) 70 - 100 mg/dL LAB CHEMISTRY METHOD 03/02/2025 11:14 AM [facility] BUN 20 5 - 25 mg/dL LAB CHEMISTRY METHOD 03/02/2025 11:14 AM [facility] Creatinine 0.71 0.70 - 1.30 mg/dL LAB CHEMISTRY METHOD 03/02/2025 11:14 AM [facility] eGFR 94 >=60 mL/min/1. 73m2 LAB CHEMISTRY METHOD 03/02/2025 11:14 AM [facility] Comment:Calculation based on the Chronic Kidney Disease Epidemiology Collaboration (CKD-EPI) equation refit without adjustment for race. BUN/Creatinine Ratio 28.2 LAB CHEMISTRY METHOD 03/02/2025 11:14 AM [facility] Calcium 9.3 8.5 - 10.5 mg/dL LAB CHEMISTRY METHOD 03/02/2025 11:14 AM [facility] Blood Venous blood specimen / Unknown Venipuncture / Unknown 03/02/2025 5:17 AM EDT 03/02/2025 9:58 AM EDT us Smitha Mcbride MD LAB BLOOD ORDERABLES Fin al Result [facility] [address] [place], [place] [address] [[email or web address]] [phone] * (ABNORMAL) Complete blood count (03/02/2025 5:17 AM EDT) [facility] WBC 9.6 4.8 - 10.8 K/mcL LAB HEMETOLOGY METHOD 03/02/2025 10:27 AM [facility] RBC 4.10(L) 4.50 - 5.50 M/mcL LAB HEMETOLOGY METHOD 03/02/2025 10:27 AM [facility] Hemoglobin 13.2(L) 13.5 - 17.5 g/dL LAB HEMETOLOGY METHOD 03/02/2025 10:27 AM [facility] Hematocrit 40.2(L) 42.0 - 54.0 % LAB HEMETOLOGY METHOD 03/02/2025 10:27 AM [facility] MCV 99.0(H) 79.0 - 98.0 FL LAB HEMETOLOGY METHOD 03/02/2025 10:27 AM [facility] MCH 32.5(H) 27.0 - 32.0 pcg LAB HEMETOLOGY METHOD 03/02/2025 10:27 AM [facility] MCHC 32.8 32.0 - 37.0 g/dL LAB HEMETOLOGY METHOD 03/02/2025 10:27 AM [facility] RDW 11.9 11.0 - 15.0 % LAB HEMETOLOGY METHOD 03/02/2025 10:27 AM [facility] Platelets 306 130 - 400 K/mcL LAB HEMETOLOGY METHOD 03/02/2025 10:27 AM [facility] MPV 10.0 7.0 - 11.0 FL LAB HEMETOLOGY METHOD 03/02/2025 10:27 AM [facility] NRBC 0.0 <1.0 % LAB HEMETOLOGY METHOD 03/02/2025 10:27 AM EDT [facility] NRBC Absolute 0.00 <0.10 K/mcL LAB HEMETOLOGY METHOD 03/02/2025 10:27 AM EDT [facility] Blood Venous blood specimen / Unknown Venipuncture / Unknown 03/02/2025 5:17 AM EDT 03/02/2025 9:58 AM EDT us Smitha Mcbride MD LAB BLOOD ORDERABLES Fin al Result [facility] [address] [place] [address], documented in this encounter Visit Diagnoses Diagnosis Rhabdomyolysis documented in this encounter Additional Health Concerns Infection Onset Date Last Indicated Resolved Time 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
--- OUTSIDE RECORDS SUMMARY | 2025-09-28 15:44 | XMS_ITS | Encounter Summary ---
Author Organization [facility] [address] Address [address] [place] [address] Care Team Providers Care Knitter Machine Name Role Phone Av Weathers Primary Care Provider +1 [phone] Encounter Details Date Type Department Care Team (Late st Contact Info) Description 09/22/2025 Lab Requisition [facility] - Main Lab 299 [facility] [place] [address] Smitha Mcbride MD [address] [phone] Benign prostatic hyperplasia with lower urinary tract symptoms; Essential (primary) hypertension Social History Tobacco Use Types Packs/Day Years [...] Associated Diagnosis Comments COMPLETE BLOOD COUNT Routine 09/22/2025 5:15 AM EST Benign prostatic hyperplasia with lower urinary tract symptoms Essential (primary) hypertension BASIC METABOLIC PANEL Routine 09/22/2025 5:15 AM EST Benign prostatic hyperplasia with lower urinary tract symptoms Essential (primary) hypertension documented in this encounter Results * (ABNORMAL) Basic metabolic panel (09/22/2025 5:15 AM EST) Sodium 139 133 - 145 mmol/L 09/22/2025 10:33 AM [facility] Potassium 3.2(L) 3.5 - 5.5 mmol/L 09/22/2025 10:33 AM [facility] Chloride 97 96 - 110 mmol/L 09/22/2025 10:33 AM [facility] CO2 32 21 - 32 mmol/L 09/22/2025 10:33 AM [facility] Anion Gap 10 3 - 11 09/22/2025 10:33 AM [facility] Glucose 135(H) 70 - 100 mg/dL 09/22/2025 10:33 AM [facility] BUN 18 5 - 25 mg/dL 09/22/2025 10:33 AM [facility] Creatinine 0.77 0.70 - 1.30 mg/dL 09/22/2025 10:33 AM [facility] eGFR 92 >=60 mL/min/1. 73m2 09/22/2025 10:33 AM [facility] Comment:Calculation based on the Chronic Kidney Disease Epidemiology Collaboration (CKD-EPI) equation refit without adjustment for race. BUN/Creatinine Ratio 23.4 09/22/2025 10:33 AM [facility] Calcium 8.5 8.5 - 10.5 mg/dL 09/22/2025 10:33 AM [facility] Blood Venous blood specimen / Unknown Venipuncture / Unknown 09/22/2025 5:15 AM EST 09/22/2025 9:08 AM EST us Smitha Mcbride MD LAB BLOOD ORDERABLES Fin al Result [facility] [address] [place] [address], * (ABNORMAL) Complete blood count (09/22/2025 5:15 AM EST) [facility] WBC 15.5(H) 4.8 - 10.8 K/mcL LAB HEMETOLOGY METHOD 09/22/2025 3:12 PM [facility] RBC 4.10(L) 4.50 - 5.50 M/mcL LAB HEMETOLOGY METHOD 09/22/2025 3:12 PM [facility] Hemoglobin 12.5(L) 13.5 - 17.5 g/dL LAB HEMETOLOGY METHOD 09/22/2025 3:12 PM [facility] Hematocrit 38.1(L) 42.0 - 54.0 % LAB HEMETOLOGY METHOD 09/22/2025 3:12 PM [facility] MCV 93.2 79.0 - 98.0 FL LAB HEMETOLOGY METHOD 09/22/2025 3:12 PM [facility] MCH 30.6 27.0 - 32.0 pcg LAB HEMETOLOGY METHOD 09/22/2025 3:12 PM [facility] MCHC 32.8 32.0 - 37.0 g/dL LAB HEMETOLOGY METHOD 09/22/2025 3:12 PM [facility] RDW 13.3 11.0 - 15.0 % LAB HEMETOLOGY METHOD 09/22/2025 3:12 PM [facility] Platelets 293 130 - 400 K/mcL LAB HEMETOLOGY METHOD 09/22/2025 3:12 PM [facility] MPV 10.7 7.0 - 11.0 FL LAB HEMETOLOGY METHOD 09/22/2025 3:12 PM [facility] NRBC 0.0 <1.0 % LAB HEMETOLOGY METHOD 09/22/2025 3:12 PM [facility] NRBC Absolute 0.00 <0.10 K/mcL LAB HEMETOLOGY METHOD 09/22/2025 3:12 PM EST [facility] Blood Venous blood specimen / Unknown Venipuncture / Unknown 09/22/2025 5:15 AM EST 09/22/2025 9:08 AM EST us Smitha Mcbride MD LAB BLOOD ORDERABLES Fin al Result [facility] [address] [place] [address], [place] [phone] documented in this encounter Visit Diagnoses Diagnosis Benign prostatic hyperplasia with lower urinary tract symptoms Essential (primary) hypertension Unspecified essential hypertension documented in this encounter Additional Health Concerns Infection Onset Date Last Indicated Resolved Time 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
--- OUTSIDE RECORDS SUMMARY | 2025-09-28 15:44 | XMS_ITS | Encounter Summary ---
Author Organization [facility] Address [address] [place] [address] Care Team Providers Care Estate Planning Director Name Role Phone Av Weathers Primary Care Provider +1 [phone] Encounter Details Date Type Department Care Team (Late st Contact Info) Description 04/07/2025 Lab Requisition [facility] - Main Lab 299 [facility] [place] [address] Smitha Mcbride MD [address] [phone] Rhabdomyolysis Social History Tobacco Use Types Packs/Day [...] for your loved ones. For example, children's program coordinator or elderly care for an older [...] Result [facility] [address] [place], [place] [address] [phone] * (ABNORMAL) Complete blood count (04/10/2025 7:05 AM EDT) [facility] WBC 9.4 4.8 - 10.8 K/mcL LAB [...] LAB HEMETOLOGY METHOD 04/10/2025 11:21 AM EDT [facility] NRBC Absolute 0.00 <0.10 K/[facility] LAB HEMETOLOGY METHOD 04/10/2025 11:21 AM EDT [facility] Blood Venous blood specimen / Unknown Venipuncture / Unknown 04/10/2025 7:05 AM EDT 04/10/2025 10:50 AM EDT us Smitha Mcbride MD LAB BLOOD ORDERABLES Fin al Result [facility] [address] [place] [address], documented in this encounter Visit Diagnoses Diagnosis Rhabdomyolysis documented in this encounter Additional Health Concerns Infection Onset Date Last Indicated Resolved Time 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
--- OUTSIDE RECORDS SUMMARY | 2025-09-28 15:44 | XMS_ITS | Encounter Summary ---
Author Organization [facility] Address [address] [place] [address] Care Team Providers Care Cold Rolling Machine Setter Name Role Phone Av Weathers Primary Care Provider +1 [phone] Encounter Details Date Type Department Care Team (Late st Contact Info) Description 03/09/2025 Lab Requisition [facility] - Main Lab 299 [facility] [place] [address] Smitha Mcbride MD [address] [phone] Rhabdomyolysis Social History Tobacco Use Types Packs/Day [...] for your loved ones. For example, children's institution attendant or elderly care for an older [...] K/mcL LAB HEMETOLOGY METHOD 03/09/2025 8:[address] [facility] RBC 3.90(L) 4.50 - 5.50 M/mcL LAB HEMETOLOGY METHOD 03/09/2025 8:[address] [facility] Hemoglobin 12.6(L) 13.5 - 17.5 g/dL LAB HEMETOLOGY METHOD 03/09/2025 8:[address] [facility] Hematocrit 37.8(L) 42.0 - 54.0 % LAB HEMETOLOGY METHOD 03/09/2025 8:[address] [facility] MCV 97.7 79.0 - 98.0 FL LAB HEMETOLOGY METHOD 03/09/2025 8:[address] [facility] MCH 32.6(H) 27.0 - 32.0 pcg LAB HEMETOLOGY METHOD 03/09/2025 8:[address] [facility] MCHC 33.3 32.0 - 37.0 g/dL LAB HEMETOLOGY METHOD 03/09/2025 8:[address] [facility] RDW 11.9 11.0 - 15.0 % LAB HEMETOLOGY METHOD 03/09/2025 8:[address] [facility] Platelets 301 130 - 400 K/mcL LAB HEMETOLOGY METHOD 03/09/2025 8:[address] [facility] MPV 10.2 7.0 - 11.0 FL LAB HEMETOLOGY METHOD 03/09/2025 8:[address] [facility] NRBC 0.0 <1.0 % LAB HEMETOLOGY METHOD 03/09/2025 8:[address] [facility] NRBC Absolute 0.00 <0.10 K/mcL LAB HEMETOLOGY METHOD 03/09/2025 8:[address] [facility] Neutrophils Relative 73.5 % LAB HEMETOLOGY METHOD 03/09/2025 8:[address] [facility] Lymphocytes Relative 17.0 % LAB HEMETOLOGY METHOD 03/09/2025 8:[address] [facility] Monocytes Relative 6.8 % LAB HEMETOLOGY METHOD 03/09/2025 8:[address] [facility] Eosinophils Relative 2.1 % LAB HEMETOLOGY METHOD 03/09/2025 8:[address] [facility] Basophils Relative 0.3 % LAB HEMETOLOGY METHOD 03/09/2025 8:[address] [facility] Immature Granulocytes Relative 0.3 % LAB HEMETOLOGY METHOD 03/09/2025 8:[address] [facility] Neutrophils Absolute 9.01(H) 1.50 - 7.00 K/mcL LAB HEMETOLOGY METHOD 03/09/2025 8:[address] [facility] Lymphocytes Absolute 2.09 1.00 - 5.00 K/mcL LAB HEMETOLOGY METHOD 03/09/2025 8:[address] [facility] Monocytes Absolute 0.83 0.20 - 1.00 K/mcL LAB HEMETOLOGY METHOD 03/09/2025 8:[address] [facility] Eosinophils Absolute 0.26 0.00 - 0.50 K/mcL LAB HEMETOLOGY METHOD 03/09/2025 8:[address] [facility] Basophils Absolute 0.04 0.00 - 0.20 K/mcL LAB HEMETOLOGY METHOD 03/09/2025 8:[address] [facility] Immature Granulocytes Absolute 0.04(H) 0.00 - 0.03 K/mcL LAB HEMETOLOGY METHOD 03/09/2025 8:[address] [facility] Blood Venous blood specimen / Unknown Venipuncture / Unknown 03/09/2025 5:13 AM EDT 03/09/2025 7:25 AM EDT Smitha Mcbride MD LAB BLOOD ORDERABLES Fin al Result [facility] [address] [place] [address], * (ABNORMAL) Basic metabolic panel (03/09/2025 5:13 AM EDT) Sodium 138 133 - 145 mmol/L LAB CHEMISTRY METHOD 03/09/2025 8:[address] [facility] Potassium 3.6 3.5 - 5.5 mmol/L LAB CHEMISTRY METHOD 03/09/2025 8:[address] [facility] Chloride 103 96 - 110 mmol/L LAB CHEMISTRY METHOD 03/09/2025 8:[address] [facility] CO2 30 21 - 32 mmol/L LAB CHEMISTRY METHOD 03/09/2025 8:[address] [facility] Anion Gap 5 3 - 11 LAB CHEMISTRY METHOD 03/09/2025 8:[address] [facility] Glucose 129(H) 70 - 100 mg/dL LAB CHEMISTRY METHOD 03/09/2025 8:[address] [facility] BUN 14 5 - 25 mg/dL LAB CHEMISTRY METHOD 03/09/2025 8:[address] [facility] Creatinine 0.66(L) 0.70 - 1.30 mg/dL LAB CHEMISTRY METHOD 03/09/2025 8:[address] [facility] eGFR 97 >=60 mL/min/1. 73m2 LAB CHEMISTRY METHOD 03/09/2025 8:[address] [facility] Comment:Calculation based on the Chronic Kidney Disease Epidemiology Collaboration (CKD-EPI) equation refit without adjustment for race. BUN/Creatinine Ratio 21.2 LAB CHEMISTRY METHOD 03/09/2025 8:52 AM EDT [facility] Calcium 9.3 8.5 - 10.5 mg/dL LAB CHEMISTRY METHOD 03/09/2025 8:52 AM EDT [facility] Blood Venous blood specimen / Unknown Venipuncture / Unknown 03/09/2025 5:13 AM EDT 03/09/2025 7:25 AM EDT us Smitha Mcbride MD LAB BLOOD ORDERABLES Fin al Result [facility] [address] [place] [address], documented in this encounter Visit Diagnoses Diagnosis Rhabdomyolysis documented in this encounter Additional Health Concerns Infection Onset Date Last Indicated Resolved Time 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
--- OUTSIDE RECORDS SUMMARY | 2025-09-28 15:44 | XMS_ITS | Encounter Summary ---
Author Organization [facility] Address [address] [place] [address] Care Team Providers Care Tabber Name Role Phone Av Weathers Primary Care Provider +1 [phone] Encounter Details Date Type Department Care Team (Late st Contact Info) Description 04/23/2025 Lab Requisition [facility] - Main Lab 299 [facility] [place] [address] Smitha Mcbride MD [address] [phone] Rhabdomyolysis Social History Tobacco Use Types Packs/Day [...] K/mcL LAB HEMETOLOGY METHOD 04/24/2025 12:[address] [facility] RBC 4.00(L) 4.50 - 5.50 M/mcL LAB HEMETOLOGY METHOD 04/24/2025 12:[address] [facility] Hemoglobin 12.3(L) 13.5 - 17.5 g/dL LAB HEMETOLOGY METHOD 04/24/2025 12:[address] [facility] Hematocrit 38.2(L) 42.0 - 54.0 % LAB HEMETOLOGY METHOD 04/24/2025 12:[address] [facility] MCV 96.7 79.0 - 98.0 FL LAB HEMETOLOGY METHOD 04/24/2025 12:[address] [facility] MCH 31.1 27.0 - 32.0 pcg LAB HEMETOLOGY METHOD 04/24/2025 12:[address] [facility] MCHC 32.2 32.0 - 37.0 g/dL LAB HEMETOLOGY METHOD 04/24/2025 12:[address] [facility] RDW 12.3 11.0 - 15.0 % LAB HEMETOLOGY METHOD 04/24/2025 12:[address] [facility] Platelets 348 130 - 400 K/mcL LAB HEMETOLOGY METHOD 04/24/2025 12:[address] [facility] MPV 9.8 7.0 - 11.0 FL LAB HEMETOLOGY METHOD 04/24/2025 12:[address] [facility] NRBC 0.0 <1.0 % LAB HEMETOLOGY METHOD 04/24/2025 12:[address] [facility] NRBC Absolute 0.00 <0.10 K/mcL LAB HEMETOLOGY METHOD 04/24/2025 12:[address] [facility] Blood Venous blood specimen / Unknown Venipuncture / Unknown 04/24/2025 6:09 AM EDT 04/24/2025 11:35 AM EDT us Smitha Mcbride MD LAB BLOOD ORDERABLES Fin al Result [facility] [address] [place] [address], [place] [phone] * (ABNORMAL) Basic metabolic panel (04/24/2025 6:09 AM EDT) Pathologist [facility] Sodium 142 133 - 145 mmol/L LAB CHEMISTRY METHOD 04/24/2025 2:[address] [facility] Potassium 3.6 3.5 - 5.5 mmol/L LAB CHEMISTRY METHOD 04/24/2025 2:[address] [facility] Chloride 103 96 - 110 mmol/L LAB CHEMISTRY METHOD 04/24/2025 2:[address] [facility] CO2 28 21 - 32 mmol/L LAB CHEMISTRY METHOD 04/24/2025 2:[address] [facility] Anion Gap 11 3 - 11 LAB CHEMISTRY METHOD 04/24/2025 2:[address] [facility] Glucose 108(H) 70 - 100 mg/dL LAB CHEMISTRY METHOD 04/24/2025 2:[address] [facility] BUN 18 5 - 25 mg/dL LAB CHEMISTRY METHOD 04/24/2025 2:[address] [facility] Creatinine 0.93 0.70 - 1.30 mg/dL LAB CHEMISTRY METHOD 04/24/2025 2:[address] [facility] eGFR 85 >=60 mL/min/1. 73m2 LAB CHEMISTRY METHOD 04/24/2025 2:[address] [facility] Comment:Calculation based on the Chronic Kidney Disease Epidemiology Collaboration (CKD-EPI) equation refit without adjustment for race. BUN/Creatinine Ratio 19.4 LAB CHEMISTRY METHOD 04/24/2025 2:01 PM EDT [facility] Calcium 9.3 8.5 - 10.5 mg/dL LAB CHEMISTRY METHOD 04/24/2025 2:01 PM EDT [facility] Blood Venous blood specimen / Unknown Venipuncture / Unknown 04/24/2025 6:09 AM EDT 04/24/2025 11:35 AM EDT us Smitha Mcbride MD LAB BLOOD ORDERABLES Fin al Result [facility] [address] [place] [address], documented in this encounter Visit Diagnoses Diagnosis Rhabdomyolysis documented in this encounter Additional Health Concerns Infection Onset Date Last Indicated Resolved Time 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
--- OUTSIDE RECORDS SUMMARY | 2025-09-28 15:44 | XMS_ITS | Encounter Summary ---
Author Organization [facility] Address [address] [place] [address] Care Team Providers Care Traveling Repair Accountant Name Role Phone Av Weathers Primary Care Provider +1 [phone] Encounter Details Date Type Department Care Team (Late st Contact Info) Description 02/06/2025 Lab Requisition [facility] - Main Lab 299 [facility] [place] [address] Smitha Mcbride MD [address] [phone] Unspecified atrial fibrillation (CMS/HCC V24, CMS/HCC V28) [...] LAB CHEMISTRY METHOD 02/06/2025 2:39 PM EDT [facility] Alkaline Phosphatase 88 42 - 121 unit/L LAB CHEMISTRY METHOD 02/06/2025 2:39 PM EDT [facility] Total Protein 6.1 6.0 - 8.0 g/dL LAB CHEMISTRY METHOD 02/06/2025 2:39 PM EDT [facility] Albumin 2.8(L) 3.2 - 5.0 g/dL LAB CHEMISTRY METHOD 02/06/2025 2:39 PM EDT [facility] Total Bilirubin 0.5 0.0 - 1.4 mg/dL LAB CHEMISTRY METHOD 02/06/2025 2:39 PM EDT [facility] Blood Venous blood specimen / Unknown Venipuncture / Unknown 02/06/2025 8:06 AM EDT 02/06/2025 12:46 PM EDT Smitha Mcbride MD LAB BLOOD ORDERABLES Fin al Result [facility] [address] [place] [address], * (ABNORMAL) Complete blood count (02/06/2025 8:06 AM EDT) WBC 9.5 4.8 - 10.8 K/[facility] LAB HEMETOLOGY METHOD 02/06/2025 2:15 PM EDT [facility] RBC 4.00(L) 4.50 - 5.50 M/[facility] LAB HEMETOLOGY METHOD 02/06/2025 2:15 PM EDT [facility] Hemoglobin 13.3(L) 13.5 - 17.5 g/dL LAB HEMETOLOGY METHOD 02/06/2025 2:15 PM EDT [facility] Hematocrit 39.9(L) 42.0 - 54.0 % LAB HEMETOLOGY METHOD 02/06/2025 2:15 PM EDT [facility] MCV 99.0(H) 79.0 - 98.0 FL LAB HEMETOLOGY METHOD 02/06/2025 2:15 PM EDT [facility] MCH 33.0(H) 27.0 - 32.0 pcg LAB HEMETOLOGY METHOD 02/06/2025 2:15 PM EDT [facility] MCHC 33.3 32.0 - 37.0 g/dL LAB HEMETOLOGY METHOD 02/06/2025 2:15 PM EDT [facility] RDW 12.7 11.0 - 15.0 % LAB HEMETOLOGY METHOD 02/06/2025 2:15 PM EDT [facility] Platelets 262 130 - 400 K/mcL LAB HEMETOLOGY METHOD 02/06/2025 2:15 PM EDT [facility] MPV 10.4 7.0 - 11.0 FL LAB HEMETOLOGY METHOD 02/06/2025 2:15 PM EDT [facility] NRBC 0.0 <1.0 % LAB HEMETOLOGY METHOD 02/06/2025 2:15 PM EDT [facility] NRBC Absolute 0.00 <0.10 K/mcL LAB HEMETOLOGY METHOD 02/06/2025 2:15 PM EDT [facility] Blood Venous blood specimen / Unknown Venipuncture / Unknown 02/06/2025 8:06 AM EDT 02/06/2025 12:46 PM EDT us Smitha Mcbride MD LAB BLOOD ORDERABLES Fin al Result [facility] [address] [place] [address], documented in this encounter Visit Diagnoses Diagnosis [...] documented as of this encounter Care Teams Traveling Repair Accountant Relationship Specialty Start Date End Date Av Weathers PA [address] [place] [address] PCP - General Internal Medicine 12/12/20 documented as of this encounter
--- OUTSIDE RECORDS SUMMARY | 2025-09-28 15:44 | XMS_ITS | Encounter Summary ---
Author Organization [facility] Address [address] [place] [address] Care Team Providers Care Director Trial Name Role Phone Av Weathers Primary Care Provider +1 [phone] Encounter Details Date Type Department Care Team (Late st Contact Info) Description 03/02/2025 Lab Requisition [facility] - Main Lab 299 [facility] [place] [address] Smitha Mcbride MD [address] [phone] Rhabdomyolysis Social History Tobacco Use Types Packs/Day [...] K/mcL LAB HEMETOLOGY METHOD 03/03/2025 9:42 AM [facility] RBC 3.90(L) 4.50 - 5.50 M/mcL LAB HEMETOLOGY METHOD 03/03/2025 9:42 AM [facility] Hemoglobin 12.6(L) 13.5 - 17.5 g/dL LAB HEMETOLOGY METHOD 03/03/2025 9:42 AM [facility] Hematocrit 38.5(L) 42.0 - 54.0 % LAB HEMETOLOGY METHOD 03/03/2025 9:42 AM [facility] MCV 99.5(H) 79.0 - 98.0 FL LAB HEMETOLOGY METHOD 03/03/2025 9:42 AM [facility] MCH 32.6(H) 27.0 - 32.0 pcg LAB HEMETOLOGY METHOD 03/03/2025 9:42 AM [facility] MCHC 32.7 32.0 - 37.0 g/dL LAB HEMETOLOGY METHOD 03/03/2025 9:42 AM [facility] RDW 11.9 11.0 - 15.0 % LAB HEMETOLOGY METHOD 03/03/2025 9:42 AM [facility] Platelets 312 130 - 400 K/mcL LAB HEMETOLOGY METHOD 03/03/2025 9:42 AM [facility] MPV 10.2 7.0 - 11.0 FL LAB HEMETOLOGY METHOD 03/03/2025 9:42 AM [facility] NRBC 0.0 <1.0 % LAB HEMETOLOGY METHOD 03/03/2025 9:42 AM [facility] NRBC Absolute 0.00 <0.10 K/mcL LAB HEMETOLOGY METHOD 03/03/2025 9:42 AM [facility] Blood Venous blood specimen / Unknown Venipuncture / Unknown 03/03/2025 5:19 AM EDT 03/03/2025 9:31 AM EDT us Smitha Mcbride MD LAB BLOOD ORDERABLES Fin al Result [facility] [address] [place] [address], * (ABNORMAL) Basic metabolic panel (03/03/2025 5:19 AM EDT) Pathologist [facility] Sodium 137 133 - 145 mmol/L LAB CHEMISTRY METHOD 03/03/2025 10:41 AM [facility] Potassium 4.2 3.5 - 5.5 mmol/L LAB CHEMISTRY METHOD 03/03/2025 10:41 AM [facility] Chloride 104 96 - 110 mmol/L LAB CHEMISTRY METHOD 03/03/2025 10:41 AM [facility] CO2 26 21 - 32 mmol/L LAB CHEMISTRY METHOD 03/03/2025 10:41 AM [facility] Anion Gap 7 3 - 11 LAB CHEMISTRY METHOD 03/03/2025 10:41 AM [facility] Glucose 123(H) 70 - 100 mg/dL LAB CHEMISTRY METHOD 03/03/2025 10:41 AM [facility] BUN 24 5 - 25 mg/dL LAB CHEMISTRY METHOD 03/03/2025 10:41 AM [facility] Creatinine 0.73 0.70 - 1.30 mg/dL LAB CHEMISTRY METHOD 03/03/2025 10:41 AM [facility] eGFR 94 >=60 mL/min/1. 73m2 LAB CHEMISTRY METHOD 03/03/2025 10:41 AM [facility] Comment:Calculation based on the Chronic Kidney Disease Epidemiology Collaboration (CKD-EPI) equation refit without adjustment for race. BUN/Creatinine Ratio 32.9 LAB CHEMISTRY METHOD 03/03/2025 10:41 AM EDT [facility] Calcium 9.5 8.5 - 10.5 mg/dL LAB CHEMISTRY METHOD 03/03/2025 10:41 AM EDT [facility] Blood Venous blood specimen / Unknown Venipuncture / Unknown 03/03/2025 5:19 AM EDT 03/03/2025 9:31 AM EDT us Smitha Mcbride MD LAB BLOOD ORDERABLES Fin al Result [facility] [address] [place] [address], documented in this encounter Visit Diagnoses Diagnosis Rhabdomyolysis documented in this encounter Additional Health Concerns Infection Onset Date Last Indicated Resolved Time 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
--- OUTSIDE RECORDS SUMMARY | 2025-09-28 15:44 | XMS_ITS | Encounter Summary ---
Author Organization [facility] Address [address] [place] [address] Care Team Providers Care Regulatory Auditor Name Role Phone Av Weathers Primary Care Provider +1 [phone] Encounter Details Date Type Department Care Team (Late st Contact Info) Description 09/12/2025 Lab Requisition [facility] - Main Lab 299 [facility] [place] [address] Smitha Mcbride MD [address] [phone] Essential (primary) hypertension; Unspecified atrial fibrillation (CMS/HCC [...] your loved ones. For example, early childhood director or elderly care for an older [...] 133 - 145 mmol/L 09/13/2025 12:03 PM [facility] Potassium 4.2 3.5 - 5.5 mmol/L 09/13/2025 12:03 PM [facility] Chloride 99 96 - 110 mmol/L 09/13/2025 12:03 PM [facility] CO2 31 21 - 32 mmol/L 09/13/2025 12:03 PM [facility] Anion Gap 10 3 - 11 09/13/2025 12:03 PM [facility] Glucose 110(H) 70 - 100 mg/dL 09/13/2025 12:03 PM [facility] BUN 16 5 - 25 mg/dL 09/13/2025 12:03 PM [facility] Creatinine 0.88 0.70 - 1.30 mg/dL 09/13/2025 12:03 PM [facility] eGFR 89 >=60 mL/min/1. 73m2 09/13/2025 12:03 PM [facility] Comment:Calculation based on the Chronic Kidney Disease Epidemiology Collaboration (CKD-EPI) equation refit without adjustment for race. BUN/Creatinine Ratio 18.2 09/13/2025 12:03 PM [facility] Calcium 9.0 8.5 - 10.5 mg/dL 09/13/2025 12:03 PM [facility] AST (SGOT) 19 10 - 42 unit/L 09/13/2025 12:03 PM [facility] ALT (SGPT) 15 10 - 60 unit/L 09/13/2025 12:03 PM [facility] Alkaline Phosphatase 101 42 - 121 unit/L 09/13/2025 12:03 PM [facility] Total Protein 6.9 6.0 - 8.0 g/dL 09/13/2025 12:03 PM [facility] Albumin 3.9 3.2 - 5.0 g/dL 09/13/2025 12:03 PM [facility] Total Bilirubin 0.6 0.0 - 1.4 mg/dL 09/13/2025 12:03 PM [facility] Blood Venous blood specimen / Unknown Venipuncture / Unknown 09/13/2025 5:40 AM EST 09/13/2025 10:45 AM EST Smitha Mcbride MD LAB BLOOD ORDERABLES Fin al Result [facility] [address] [place] [address], * (ABNORMAL) Complete blood count (09/13/2025 5:40 AM EST) WBC 10.3 4.8 - 10.8 K/mcL LAB HEMETOLOGY METHOD 09/13/2025 11:13 AM [facility] RBC 4.40(L) 4.50 - 5.50 M/mcL LAB HEMETOLOGY METHOD 09/13/2025 11:13 AM [facility] Hemoglobin 13.4(L) 13.5 - 17.5 g/dL LAB HEMETOLOGY METHOD 09/13/2025 11:13 AM [facility] Hematocrit 40.9(L) 42.0 - 54.0 % LAB HEMETOLOGY METHOD 09/13/2025 11:13 AM [facility] MCV 93.4 79.0 - 98.0 FL LAB HEMETOLOGY METHOD 09/13/2025 11:[address] [facility] MCH 30.6 27.0 - 32.0 pcg LAB HEMETOLOGY METHOD 09/13/2025 11:13 AM [facility] MCHC 32.8 32.0 - 37.0 g/dL LAB HEMETOLOGY METHOD 09/13/2025 11:[address] [facility] RDW 13.1 11.0 - 15.0 % LAB HEMETOLOGY METHOD 09/13/2025 11:13 AM [facility] Platelets 285 130 - 400 K/mcL LAB HEMETOLOGY METHOD 09/13/2025 11:13 AM [facility] MPV 10.1 7.0 - 11.0 FL LAB HEMETOLOGY METHOD 09/13/2025 11:13 AM [facility] NRBC 0.0 <1.0 % LAB HEMETOLOGY METHOD 09/13/2025 11:13 AM [facility] NRBC Absolute 0.00 <0.10 K/mcL LAB HEMETOLOGY METHOD 09/13/2025 11:13 AM [facility] Blood Venous blood specimen / Unknown Venipuncture / Unknown 09/13/2025 5:40 AM EST 09/13/2025 10:45 AM EST us Smitha Mcbride MD LAB BLOOD ORDERABLES Fin al Result [facility] [address] [place] [address], documented in this encounter Visit Diagnoses Diagnosis [...] documented as of this encounter Care Teams Regulatory Auditor Relationship Specialty Start Date End Date Av Weathers PA [address] [place] [address] PCP - General Internal Medicine 12/12/20 documented as of this encounter
--- OUTSIDE RECORDS SUMMARY | 2025-09-28 15:44 | XMS_ITS | Encounter Summary ---
Author Organization [facility] Address [address] [place] [address] Care Team Providers Care Inspection Clerk Name Role Phone Av Weathers Primary Care Provider +1 [phone] Encounter Details Date Type Department Care Team (Late st Contact Info) Description 02/19/2025 Lab Requisition [facility] - Main Lab 299 [facility] [place] [address] Smitha Mcbride MD [address] [phone] Rhabdomyolysis; Weakness Social History Tobacco Use Types [...] for your loved ones. For example, child study team director or elderly care for an older [...] AM EDT) WBC 11.1(H) 4.8 - 10.8 K/[facility] LAB HEMETOLOGY METHOD 02/20/2025 2:14 PM [facility] RBC 4.00(L) 4.50 - 5.50 M/mcL LAB HEMETOLOGY METHOD 02/20/2025 2:14 PM [facility] Hemoglobin 13.2(L) 13.5 - 17.5 g/dL LAB HEMETOLOGY METHOD 02/20/2025 2:14 PM [facility] Hematocrit 39.7(L) 42.0 - 54.0 % LAB HEMETOLOGY METHOD 02/20/2025 2:14 PM [facility] MCV 99.5(H) 79.0 - 98.0 FL LAB HEMETOLOGY METHOD 02/20/2025 2:14 PM [facility] MCH 33.1(H) 27.0 - 32.0 pcg LAB HEMETOLOGY METHOD 02/20/2025 2:14 PM [facility] MCHC 33.2 32.0 - 37.0 g/dL LAB HEMETOLOGY METHOD 02/20/2025 2:14 PM [facility] RDW 12.0 11.0 - 15.0 % LAB HEMETOLOGY METHOD 02/20/2025 2:14 PM [facility] Platelets 453(H) 130 - 400 K/mcL LAB HEMETOLOGY METHOD 02/20/2025 2:14 PM [facility] MPV 9.8 7.0 - 11.0 FL LAB HEMETOLOGY METHOD 02/20/2025 2:14 PM [facility] NRBC 0.0 <1.0 % LAB HEMETOLOGY METHOD 02/20/2025 2:14 PM [facility] NRBC Absolute 0.00 <0.10 K/mcL LAB HEMETOLOGY METHOD 02/20/2025 2:14 PM EDT [facility] Blood Venous blood specimen / Unknown Venipuncture / Unknown 02/20/2025 6:50 AM EDT 02/20/2025 12:32 PM EDT Smitha Mcbride MD LAB BLOOD ORDERABLES Fin al Result [facility] [address] [place] [address], * (ABNORMAL) Comprehensive metabolic panel (02/20/2025 6:50 AM EDT) Sodium 137 133 - 145 mmol/L LAB CHEMISTRY METHOD 02/20/2025 1:57 PM [facility] Potassium 4.1 3.5 - 5.5 mmol/L LAB CHEMISTRY METHOD 02/20/2025 1:57 PM [facility] Chloride 104 96 - 110 mmol/L LAB CHEMISTRY METHOD 02/20/2025 1:57 PM [facility] CO2 26 21 - 32 mmol/L LAB CHEMISTRY METHOD 02/20/2025 1:57 PM [facility] Anion Gap 7 3 - 11 LAB CHEMISTRY METHOD 02/20/2025 1:57 PM [facility] Glucose 100 70 - 100 mg/dL LAB CHEMISTRY METHOD 02/20/2025 1:57 PM [facility] BUN 13 5 - 25 mg/dL LAB CHEMISTRY METHOD 02/20/2025 1:57 PM [facility] Creatinine 0.64(L) 0.70 - 1.30 mg/dL LAB CHEMISTRY METHOD 02/20/2025 1:57 PM [facility] eGFR 98 >=60 mL/min/1. 73m2 LAB CHEMISTRY METHOD 02/20/2025 1:57 PM [facility] Comment:Calculation based on the Chronic Kidney Disease Epidemiology Collaboration (CKD-EPI) equation refit without adjustment for race. BUN/Creatinine Ratio 20.3 LAB CHEMISTRY METHOD 02/20/2025 1:57 PM EDT [facility] Calcium 9.1 8.5 - 10.5 mg/dL LAB CHEMISTRY METHOD 02/20/2025 1:57 PM EDT [facility] AST (SGOT) 19 10 - 42 unit/L LAB CHEMISTRY METHOD 02/20/2025 1:57 PM EDT [facility] ALT (SGPT) 38 10 - 60 unit/L LAB CHEMISTRY METHOD 02/20/2025 1:57 PM EDT [facility] Alkaline Phosphatase 96 42 - 121 unit/L LAB CHEMISTRY METHOD 02/20/2025 1:57 PM EDT [facility] Total Protein 6.7 6.0 - 8.0 g/dL LAB CHEMISTRY METHOD 02/20/2025 1:57 PM EDT [facility] Albumin 3.3 3.2 - 5.0 g/dL LAB CHEMISTRY METHOD 02/20/2025 1:57 PM EDT [facility] Total Bilirubin 0.4 0.0 - 1.4 mg/dL LAB CHEMISTRY METHOD 02/20/2025 1:57 PM T [facility] Blood Venous blood specimen / Unknown Venipuncture / Unknown 02/20/2025 6:50 AM EDT 02/20/2025 12:34 PM EDT us Smitha Mcbride MD LAB BLOOD ORDERABLES Fin al Result [facility] [address] [place] [address], documented in this encounter Visit Diagnoses Diagnosis [...] documented as of this encounter Care Teams Inspection Clerk Relationship Specialty Start Date End Date Av Weathers PA [address] [place] [address] PCP - General Internal Medicine 12/12/20 documented as of this encounter
--- OUTSIDE RECORDS SUMMARY | 2025-09-28 15:44 | XMS_ITS | Encounter Summary ---
Author Organization [facility] Address [address] [place] [address] Care Team Providers Care Piece Goods Packer Name Role Phone Av Weathers Primary Care Provider +1 [phone] Encounter Details Date Type Department Care Team (Late st Contact Info) Description 09/27/[address] [facility] - Main Lab 299 [facility] [place] [address] Smitha Mcbride MD [address] [phone] Disorientation, unspecified Social History Tobacco Use Types Packs/Day [...] for your loved ones. For example, childcare center director or elderly care for an older [...] Routine 09/27/2025 7:00 AM EST Disorientation, unspecified documented in this encounter Results * (ABNORMAL) CBC auto differential (09/27/2025 7:00 AM EST) [facility] WBC 14.6(H) 4.8 - 10.8 K/mcL LAB HEMETOLOGY METHOD 09/27/2025 8:33 AM [facility] RBC 4.20(L) 4.50 - 5.50 M/mcL LAB HEMETOLOGY METHOD 09/27/2025 8:33 AM [facility] Hemoglobin 13.0(L) 13.5 - 17.5 g/dL LAB HEMETOLOGY METHOD 09/27/2025 8:33 AM [facility] Hematocrit 38.3(L) 42.0 - 54.0 % LAB HEMETOLOGY METHOD 09/27/2025 8:33 AM [facility] MCV 91.0 79.0 - 98.0 FL LAB HEMETOLOGY METHOD 09/27/2025 8:33 AM [facility] MCH 30.9 27.0 - 32.0 pcg LAB HEMETOLOGY METHOD 09/27/2025 8:33 AM [facility] MCHC 33.9 32.0 - 37.0 g/dL LAB HEMETOLOGY METHOD 09/27/2025 8:33 AM [facility] RDW 12.7 11.0 - 15.0 % LAB HEMETOLOGY METHOD 09/27/2025 8:33 AM [facility] Platelets 485(H) 130 - 400 K/mcL LAB HEMETOLOGY METHOD 09/27/2025 8:33 AM [facility] MPV 9.7 7.0 - 11.0 FL LAB HEMETOLOGY METHOD 09/27/2025 8:33 AM [facility] NRBC 0.0 <1.0 % LAB HEMETOLOGY METHOD 09/27/2025 8:33 AM [facility] NRBC Absolute 0.00 <0.10 K/mcL LAB HEMETOLOGY METHOD 09/27/2025 8:33 AM [facility] Neutrophils Relative 70.0 % LAB HEMETOLOGY METHOD 09/27/2025 8:33 AM [facility] Lymphocytes Relative 21.0 % LAB HEMETOLOGY METHOD 09/27/2025 8:33 AM [facility] Monocytes Relative 5.2 % LAB HEMETOLOGY METHOD 09/27/2025 8:33 AM [facility] Eosinophils Relative 2.5 % LAB HEMETOLOGY METHOD 09/27/2025 8:33 AM [facility] Basophils Relative 0.5 % LAB HEMETOLOGY METHOD 09/27/2025 8:33 AM [facility] Immature Granulocytes Relative 0.8 % LAB HEMETOLOGY METHOD 09/27/2025 8:33 AM [facility] Neutrophils Absolute 10.18(H) 1.50 - 7.00 K/mcL LAB HEMETOLOGY METHOD 09/27/2025 8:33 AM [facility] Lymphocytes Absolute 3.06 1.00 - 5.00 K/mcL LAB HEMETOLOGY METHOD 09/27/2025 8:33 AM [facility] Monocytes Absolute 0.76 0.20 - 1.00 K/mcL LAB HEMETOLOGY METHOD 09/27/2025 8:33 AM [facility] Eosinophils Absolute 0.37 0.00 - 0.50 K/mcL LAB HEMETOLOGY METHOD 09/27/2025 8:33 AM [facility] Basophils Absolute 0.08 0.00 - 0.20 K/mcL LAB HEMETOLOGY METHOD 09/27/2025 8:33 AM [facility] Immature Granulocytes Absolute 0.11(H) 0.00 - 0.03 K/mcL LAB HEMETOLOGY METHOD 09/27/2025 8:33 AM [facility] Blood Venous blood specimen / Unknown Venipuncture / Unknown 09/27/2025 7:00 AM EST 09/27/2025 8:05 AM EST us Smitha Mcbride MD LAB BLOOD ORDERABLES Fin al Result [facility] [address] [place] [address], [place] [phone] * (ABNORMAL) Comprehensive metabolic panel (09/27/2025 7:00 AM EST) Sodium 140 133 - 145 mmol/L 09/27/2025 8:48 AM [facility] Potassium 4.3 3.5 - 5.5 mmol/L 09/27/2025 8:48 AM [facility] Chloride 99 96 - 110 mmol/L 09/27/2025 8:48 AM [facility] CO2 28 21 - 32 mmol/L 09/27/2025 8:48 AM [facility] Anion Gap 13(H) 3 - 11 09/27/2025 8:48 AM [facility] Glucose 135(H) 70 - 100 mg/dL 09/27/2025 8:48 AM [facility] BUN 17 5 - 25 mg/dL 09/27/2025 8:48 AM [facility] Creatinine 0.78 0.70 - 1.30 mg/dL 09/27/2025 8:48 AM [facility] eGFR 92 >=60 mL/min/1. 73m2 09/27/2025 8:48 AM [facility] Comment:Calculation based on the Chronic Kidney Disease Epidemiology Collaboration (CKD-EPI) equation refit without adjustment for race. BUN/Creatinine Ratio 21.8 09/27/2025 8:48 AM [facility] Calcium 9.2 8.5 - 10.5 mg/dL 09/27/2025 8:48 AM [facility] AST (SGOT) 22 10 - 42 unit/L 09/27/2025 8:48 AM [facility] ALT (SGPT) 21 10 - 60 unit/L 09/27/2025 8:48 AM [facility] Alkaline Phosphatase 99 42 - 121 unit/L 09/27/2025 8:48 AM [facility] Total Protein 7.3 6.0 - 8.0 g/dL 09/27/2025 8:48 AM [facility] Albumin 3.8 3.2 - 5.0 g/dL 09/27/2025 8:48 AM [facility] Total Bilirubin 1.0 0.0 - 1.4 mg/dL 09/27/2025 8:48 AM [facility] Blood Venous blood specimen / Unknown Venipuncture / Unknown 09/27/2025 7:00 AM EST 09/27/2025 8:05 AM EST us Smitha Mcbride MD LAB BLOOD ORDERABLES Fin al Result [facility] [address] [place] [address], documented in this encounter Visit Diagnoses Diagnosis Disorientation, unspecified documented in this encounter Additional Health Concerns Infection Onset Date Last Indicated Resolved Time 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
--- OUTSIDE RECORDS SUMMARY | 2025-09-28 15:44 | XMS_ITS | Encounter Summary ---
Author Organization [facility] Address [address] [place] [address] Care Team Providers Care Water Service Supervisor Name Role Phone Av Weathers Primary Care Provider +1 [phone] Encounter Details Date Type Department Care Team (Late st Contact Info) Description 05/07/2025 Lab Requisition [facility] - Main Lab 299 [facility] [place] [address] Smitha Mcbride MD [address] [phone] Rhabdomyolysis Social History Tobacco Use Types Packs/Day [...] for your loved ones. For example, childbirth educator or elderly care for an older adult? [...] AM EDT) WBC 8.9 4.8 - 10.8 K/[facility] LAB HEMETOLOGY METHOD 05/08/2025 1:37 PM [facility] RBC 3.90(L) 4.50 - 5.50 M/mcL LAB HEMETOLOGY METHOD 05/08/2025 1:37 PM [facility] Hemoglobin 12.2(L) 13.5 - 17.5 g/dL LAB HEMETOLOGY METHOD 05/08/2025 1:37 PM [facility] Hematocrit 37.5(L) 42.0 - 54.0 % LAB HEMETOLOGY METHOD 05/08/2025 1:37 PM [facility] MCV 95.9 79.0 - 98.0 FL LAB HEMETOLOGY METHOD 05/08/2025 1:37 PM [facility] MCH 31.2 27.0 - 32.0 pcg LAB HEMETOLOGY METHOD 05/08/2025 1:37 PM [facility] MCHC 32.5 32.0 - 37.0 g/dL LAB HEMETOLOGY METHOD 05/08/2025 1:37 PM [facility] RDW 12.5 11.0 - 15.0 % LAB HEMETOLOGY METHOD 05/08/2025 1:37 PM [facility] Platelets 303 130 - 400 K/mcL LAB HEMETOLOGY METHOD 05/08/2025 1:37 PM [facility] MPV 9.9 7.0 - 11.0 FL LAB HEMETOLOGY METHOD 05/08/2025 1:37 PM [facility] NRBC 0.0 <1.0 % LAB HEMETOLOGY METHOD 05/08/2025 1:37 PM [facility] NRBC Absolute 0.00 <0.10 K/mcL LAB HEMETOLOGY METHOD 05/08/2025 1:37 PM [facility] Blood Venous blood specimen / Unknown Venipuncture / Unknown 05/08/2025 5:13 AM EDT 05/08/2025 10:54 AM EDT us Smitha Mcbride MD LAB BLOOD ORDERABLES Fin al Result [facility] [address] [place] [address], [place] [phone] * Basic metabolic panel (05/08/2025 5:13 AM EDT) Sodium 140 133 - 145 mmol/L LAB CHEMISTRY METHOD 05/08/2025 12:20 PM [facility] Potassium 3.7 3.5 - 5.5 mmol/L LAB CHEMISTRY METHOD 05/08/2025 12:20 PM [facility] Chloride 103 96 - 110 mmol/L LAB CHEMISTRY METHOD 05/08/2025 12:20 PM [facility] CO2 31 21 - 32 mmol/L LAB CHEMISTRY METHOD 05/08/2025 12:20 PM [facility] Anion Gap 6 3 - 11 LAB CHEMISTRY METHOD 05/08/2025 12:20 PM [facility] Glucose 93 70 - 100 mg/dL LAB CHEMISTRY METHOD 05/08/2025 12:20 PM [facility] BUN 14 5 - 25 mg/dL LAB CHEMISTRY METHOD 05/08/2025 12:20 PM [facility] Creatinine 0.89 0.70 - 1.30 mg/dL LAB CHEMISTRY METHOD 05/08/2025 12:20 PM [facility] eGFR 88 >=60 mL/min/1. 73m2 LAB CHEMISTRY METHOD 05/08/2025 12:20 PM [facility] Comment:Calculation based on the Chronic Kidney Disease Epidemiology Collaboration (CKD-EPI) equation refit without adjustment for race. BUN/Creatinine Ratio 15.7 LAB CHEMISTRY METHOD 05/08/2025 12:20 PM [facility] Calcium 8.7 8.5 - 10.5 mg/dL LAB CHEMISTRY METHOD 05/08/2025 12:20 PM EDT [facility] Blood Venous blood specimen / Unknown Venipuncture / Unknown 05/08/2025 5:13 AM EDT 05/08/2025 10:54 AM EDT us Smitha Mcbride MD LAB BLOOD ORDERABLES Fin al Result [facility] [address] [place] [address], documented in this encounter Visit Diagnoses Diagnosis Rhabdomyolysis documented in this encounter Additional Health Concerns Infection Onset Date Last Indicated Resolved Time 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
--- OUTSIDE RECORDS SUMMARY | 2025-09-28 15:44 | XMS_ITS | Encounter Summary ---
Author Organization [facility] Address [address] [place] [address] Care Team Providers Care Precision Mechanical Instrument Maker Name Role Phone Av Weathers Primary Care Provider +1 [phone] Encounter Details Date Type Department Care Team (Late st Contact Info) Description 03/17/2025 Lab Requisition [facility] - Main Lab 299 [facility] [place] [address] Smitha Mcbride MD [address] [phone] Rhabdomyolysis Social History Tobacco Use Types Packs/Day [...] your loved ones. For example, child welfare caseworker or elderly care for an older adult? [...] documented as of this encounter Care Teams Precision Mechanical Instrument Maker Relationship Specialty Start Date End Date Av Weathers PA [address] [place] [address] PCP - General Internal Medicine 12/12/20 documented as of this encounter
--- OUTSIDE RECORDS SUMMARY | 2025-09-28 15:44 | XMS_ITS | Encounter Summary ---
Author Organization [facility] Address [address] [place] [address] Care Team Providers Care Acid Dipper Name Role Phone Av Weathers Primary Care Provider +1 [phone] Encounter Details Date Type Department Care Team (Late st Contact Info) Description 08/28/2025 Lab Requisition [facility] - Main Lab 299 [facility] [place] [address] Smitha Mcbride MD [address] [phone] Benign prostatic hyperplasia without lower urinary tract [...] your loved ones. For example, child welfare specialist or elderly care for an older [...] - 4.00 ng/mL 08/28/2025 11:26 AM EST [facility] PSA, Complexed 1.81 0.00 - 3.00 ng/mL 08/28/2025 11:26 AM EST [facility] PSA, Free 0.0 ng/mL 08/28/2025 11:26 AM [facility] PSA, Free Pct 0.0(L) >25.0 % 08/28/2025 11:26 AM EST [facility] Comment:Free PSA is a calcul ated value. The diagnostic usefulness of % free PSA has not been established in patients with Total PSA below 2.6 or above 10 ng/mL. Blood Venous blood specimen / Unknown Venipuncture / Unknown 08/28/2025 8:09 AM EST 08/28/2025 10:17 AM EST us Smitha Mcbride MD LAB BLOOD ORDERABLES Fin al Result [facility] [address] [place] [address], documented in this encounter Visit Diagnoses Diagnosis [...] documented as of this encounter Care Teams Acid Dipper Relationship Specialty Start Date End Date Av Weathers PA [address] [place] [address] PCP - General Internal Medicine 12/12/20 documented as of this encounter
--- OUTSIDE RECORDS SUMMARY | 2025-09-28 15:44 | XMS_ITS | Encounter Summary ---
Author Organization [facility] Address [address] [place] [address] Care Team Providers Care Expressive Therapist Name Role Phone Av Weathers Primary Care Provider [phone] [phone] Encounter Details Date Type Department Care Team (Late st Contact Info) Description 09/25/2025 Lab Requisition [facility] - Main Lab [address] [facility] [place] [phone] Smitha Mcbride MD [address] [phone] Benign prostatic hyperplasia without lower urinary tract symptoms; Hypokalemia Social History Tobacco Use Types Packs/Day Years [...] Procedure Name Priority Date/Time Associated Diagnosis Comments MAGNESIUM Routine 09/25/2025 8:11 AM EST Benign prostatic hyperplasia without lower urinary tract symptoms Hypokalemia BASIC METABOLIC PANEL Routine 09/25/2025 8:11 AM EST Benign prostatic hyperplasia without lower urinary tract symptoms Hypokalemia documented in this encounter Results * Magnesium (09/25/2025 8:11 AM EST) Magnesium 1.9 1.9 - 2.6 mg/dL 09/25/2025 12:[address] [facility] Blood Venous blood specimen / Unknown Venipuncture / Unknown 09/25/2025 8:11 AM EST 09/25/2025 11:27 AM EST us Smitha Mcbride MD LAB BLOOD ORDERABLES Fin al Result [facility] [address] [place] [address], [place] [phone] * (ABNORMAL) Basic metabolic panel (09/25/2025 8:11 AM EST) Sodium 137 133 - 145 mmol/L 09/25/2025 12:[address] [facility] Potassium 4.7 3.5 - 5.5 mmol/L 09/25/2025 12:[address] [facility] Comment:Hemolysis present Chloride 96 96 - 110 mmol/L 09/25/2025 12:[address] [facility] CO2 28 21 - 32 mmol/L 09/25/2025 12:[address] [facility] Anion Gap 13(H) 3 - 11 09/25/2025 12:[address] [facility] Glucose 139(H) 70 - 100 mg/dL 09/25/2025 12:[address] [facility] BUN 13 5 - 25 mg/dL 09/25/2025 12:[address] [facility] Creatinine 0.85 0.70 - 1.30 mg/dL 09/25/2025 12:[address] [facility] eGFR 89 >=60 mL/min/1. 73m2 09/25/2025 12:[address] [facility] Comment:Calculation based on the Chronic Kidney Disease Epidemiology Collaboration (CKD-EPI) equation refit without adjustment for race. BUN/Creatinine Ratio 15.3 09/25/2025 12:22 PM EST [facility] Calcium 8.8 8.5 - 10.5 mg/dL 09/25/2025 12:22 PM EST [facility] Blood Venous blood specimen / Unknown Venipuncture / Unknown 09/25/2025 8:11 AM EST 09/25/2025 11:27 AM EST us Smitha Mcbride MD LAB BLOOD ORDERABLES Fin al Result [facility] [address] [place] [address], documented in this encounter Visit Diagnoses Diagnosis Benign prostatic hyperplasia without lower urinary tract symptoms Hypokalemia Hypopotassemia documented in this encounter Additional Health Concerns Infection Onset Date Last Indicated Resolved Time 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
--- OUTSIDE RECORDS SUMMARY | 2025-09-28 15:45 | XMS_ITS | Encounter Summary ---
Author Organization [facility] Address [address] [place] [address] Care Team Providers Care Veterinarian Helper Name Role Phone Av Weathers Primary Care Provider [phone] [phone] Encounter Details Date Type Department Care Team (Late st Contact Info) Description 03/24/2025 Lab Requisition [facility] - Main Lab 299 [facility] [place] [phone] Smitha Mcbride MD [address] [phone] Rhabdomyolysis; Anemia, unspecified; Other disorders of electrolyte [...] [place] IgE (03/27/2025 6:15 AM EDT) Pathologist [facility] Alternaria alternata, IgE <0.10 <0.10 kU/L [...] 03/29/2025 2:16 PM EDT [facility] Cockroach, Mal[place]ian, IgE 0.10 <0.10 kU/L 03/29/2025 2:16 PM EDT [facility] Cockroach, [place] Class CLASS 0/1 03/29/2025 2:16 PM EDT [facility] [place], IgE 0.16(H) <0.10 kU/L 03/29/2025 2:16 PM EDT [facility] Gray Class CLASS 0/1 03/29/20 2:16 PM EDT [...] 03/29/2025 2:16 PM EDT [facility] [place] ([place]), IgE <0.10 <0.10 kU/L 03/29/2025 2:16 PM EDT [facility] [place] ([place]) Class CLASS 0 03/29/2025 2:16 PM EDT [facility] [place] [employer] [place], IgE <0.10 <0.10 kU/L 03/29/2025 2:16 PM EDT [facility] [place] [employer], [place] Class CLASS 0 03/29/2025 [...] 0 03/29/2025 2:16 PM EDT [facility] [place], IgE <0.10 <0.10 kU/L 03/29/2025 2:16 PM EDT [facility] [place] Class CLASS 0 03/29/2025 2:16 PM EDT [facility] [place], IgE <0.10 <0.10 kU/L 03/29/2025 2:16 PM EDT [facility] [place] Class CLASS 0 03/29/2025 2:16 PM EDT [...] 03/29/2025 2:16 PM EDT [facility] [place], IgE <0.10 <0.10 kU/L 03/29/2025 2:16 PM EDT [facility] [place] Class CLASS 0 2024 2:16 PM EDT [facility] [place], IgE <0.10 <0.10 kU/L 03/29/2025 2:16 PM EDT [facility] [place] Class CLASS 0 03/29 2:16 PM EDT [facility] [place], IgE <0.10 <0.10 kU/L 03/29/2025 2:16 PM EDT [facility] [place] Class CLASS 0 025 2:16 PM [...] >100.0 Very High Level Test performed at [facility], [address], [place] [address] Juanita Moseley MD, PhD - Orthotist Or Prosthetist Blood Venous blood specimen / Unknown Venipuncture / Unknown 03/27/2025 6:15 AM EDT 03/27/2025 10:58 AM EDT us Smitha Mcbride MD LAB BLOOD ORDERABLES Fin al Result [facility] [address] [place] [address] * (ABNORMAL) Allergen, national food profile IGE (03/27/2025 6:15 AM EDT) [place], IgE <0.10 <0.10 kU/L 03/29/2025 2:16 PM EDT [facility] [place] Class CLASS 0 03/29/2025 2:16 PM EDT [...] 0 03/29/2025 2:16 PM EDT [facility] [place], IgE <0.10 <0.10 kU/L 03/29/2025 2:16 PM EDT [facility] [place] Class CLASS 0 03/29/2025 2:16 PM EDT [...] 0 03/29/2025 2:16 PM EDT [facility] [place], IgE <0.10 <0.10 kU/L 03/29/2025 2:16 PM EDT [facility] [place] Class CLASS 0 03/29/2025 2:16 PM EDT [facility] [place], IgE 0.11(H) <0.10 kU/L 03/29/2025 2:16 PM EDT [facility] [place] Class CLASS 0/1 03/29/2025 2:16 PM EDT [facility] IgE 517.0(H) <114.0 IU/mL 03/29/2025 2:16 PM EDT [facility] Allergy Interpretation See Below 03/29/2025 2:16 PM EDT [facility] Comment: Level of Allergen CLASS kU/L Specific IgE Antibody ----- 0 <0.10 Undetectable 0/1 0.10 - 0.34 Very Low Level 1 0.35 - 0.69 Low Level 2 0.70 - 3.49 Moderate Level 3 3.50 - 17.4 High Level 4 17.5 - 49.9 Very High Level 5 50.0 - 100.0 Very High Level 6 >100.0 Very High Level Test performed at [facility], [address] , [place] [address] Juanita Moseley MD, PhD - Orthotist Or Prosthetist Blood Venous blood specimen / Unknown Venipuncture / Unknown 03/27/2025 6:15 AM EDT 03/27/2025 10:58 AM EDT Smitha Mcbride MD LAB BLOOD ORDERABLES Fin al Result Performing Organization Address City/[facility] Co de Phone Number [facility] [address] [place] [address] * Allergen latex, IgE (03/27/2025 6:15 AM EDT) Latex, IgE <0.10 <0.10 kU/L 03/29/2025 2:16 PM EDT [facility] Latex Class CLASS 0 03/29/2025 2:16 PM EDT [facility] Comment: Test performed at [facility], [address] , [place] [address] Juanita Moseley MD, PhD - Orthotist Or Prosthetist Blood Venous blood specimen / Unknown Venipuncture / Unknown 03/27/2025 6:15 AM EDT 03/27/2025 10:58 AM EDT Smitha Mcbride MD LAB BLOOD ORDERABLES Fin al Result [facility] [address] [place] [address] * C4 complement (03/27/2025 6:15 AM EDT) [facility] C4 Complement 30 16 - 47 mg/dL LAB CHEMISTRY METHOD 03/27/2025 1:39 PM EDT [facility] Blood Venous blood specimen / Unknown Venipuncture / Unknown 03/27/2025 6:15 AM EDT 03/27/2025 10:58 AM EDT Smitha Mcbride MD LAB BLOOD ORDERABLES Fin al Result Performing Organization Address [facility] Co de Phone Number [facility] [address] [place] [address], [place] [phone] * C3 complement (03/27/2025 6:15 AM EDT) [facility] C3 Complement 133 88 - 201 mg/dL LAB CHEMISTRY METHOD 03/27/2025 1:39 PM EDT [facility] Blood Venous blood specimen / Unknown Venipuncture / Unknown 03/27/2025 6:15 AM EDT 03/27/2025 10:58 AM EDT Smitha Mcbride MD LAB BLOOD ORDERABLES Fin al Result Performing Organization Address City/[facility]/ZIP Co de Phone Number [facility] [address] [place] [address], [place] [phone] * (ABNORMAL) CBC auto differential (03/27/2025 6:15 AM EDT) Pathologist [facility] WBC 9.5 4.8 - 10.8 K/[facility] HEMETOLOGY METHOD 03/27/2025 12:08 PM EDT [facility] RBC 3.80(L) 4.50 - 5.50 M/[facility] HEMETOLOGY METHOD 03/27/2025 12:[address] [facility] Hemoglobin 11.7(L) 13.5 - 17.5 g/dL LAB HEMETOLOGY METHOD 03/27/2025 12:[address] [facility] Hematocrit 36.3(L) 42.0 - 54.0 % LAB HEMETOLOGY METHOD 03/27/2025 12:[address] [facility] MCV 96.5 79.0 - 98.0 FL LAB HEMETOLOGY METHOD 03/27/2025 12:[address] [facility] MCH 31.1 27.0 - 32.0 pcg LAB HEMETOLOGY METHOD 03/27/2025 12:[address] [facility] MCHC 32.2 32.0 - 37.0 g/dL LAB HEMETOLOGY METHOD 03/27/2025 12:[address] [facility] RDW 12.1 11.0 - 15.0 % LAB HEMETOLOGY METHOD 03/27/2025 12:[address] [facility] Platelets 371 130 - 400 K/mcL LAB HEMETOLOGY METHOD 03/27/2025 12:[address] [facility] MPV 9.7 7.0 - 11.0 FL LAB HEMETOLOGY METHOD 03/27/2025 12:[address] [facility] NRBC 0.0 <1.0 % LAB HEMETOLOGY METHOD 03/27/2025 12:[address] [facility] NRBC Absolute 0.00 <0.10 K/mcL LAB HEMETOLOGY METHOD 03/27/2025 12:[address] [facility] Neutrophils Relative 56.7 % LAB HEMETOLOGY METHOD 03/27/2025 12:[address] [facility] Lymphocytes Relative 30.4 % LAB HEMETOLOGY METHOD 03/27/2025 12:[address] [facility] Monocytes Relative 6.9 % LAB HEMETOLOGY METHOD 03/27/2025 12:08 PM EDT [facility] Eosinophils Relative 4.3 % LAB HEMETOLOGY METHOD 03/27/2025 12:08 PM EDT [facility] Basophils Relative 0.8 % LAB HEMETOLOGY METHOD 03/27/2025 12:08 PM EDT [facility] Immature Granulocytes Relative 0.9 % LAB HEMETOLOGY METHOD 03/27/2025 12:08 PM EDT [facility] Neutrophils Absolute 5.37 1.50 - 7.00 K/mcL LAB HEMETOLOGY METHOD 03/27/2025 12:08 PM EDT [facility] Lymphocytes Absolute 2.88 1.00 - 5.00 K/mcL LAB HEMETOLOGY METHOD 03/27/2025 12:08 PM EDT [facility] Monocytes Absolute 0.65 0.20 - 1.00 K/mcL LAB HEMETOLOGY METHOD 03/27/2025 12:08 PM EDT [facility] Eosinophils Absolute 0.41 0.00 - 0.50 K/mcL LAB HEMETOLOGY METHOD 03/27/2025 12:08 PM EDT [facility] Basophils Absolute 0.08 0.00 - 0.20 K/mcL LAB HEMETOLOGY METHOD 03/27/2025 12:08 PM EDT [facility] Immature Granulocytes Absolute 0.09(H) 0.00 - 0.03 K/mcL LAB HEMETOLOGY METHOD 03/27/2025 12:[address] [facility] Blood Venous blood specimen / Unknown Venipuncture / Unknown 03/27/2025 6:15 AM EDT 03/27/2025 10:58 AM EDT us Smitha Mcbride MD LAB BLOOD ORDERABLES Fin al Result [facility] [address] [place] [address], [place] [phone] * (ABNORMAL) Sedimentation rate (03/27/2025 6:15 AM EDT) [facility] Sed Rate 32(H) 0 - 20 mm/hr LAB HEMETOLOGY METHOD 03/27/2025 12:24 PM EDT [facility] Blood Venous blood specimen / Unknown Venipuncture / Unknown 03/27/2025 6:15 AM EDT 03/27/2025 10:58 AM EDT Smitha Mcbride MD LAB BLOOD ORDERABLES Fin al Result Performing Organization Address City/State/[facility] Co de Phone Number [facility] [address] [place] [address], [place] [phone] * Basic metabolic panel (03/27/2025 6:15 AM EDT) [facility] Sodium 141 133 - 145 mmol/L LAB CHEMISTRY METHOD 03/27/2025 1:[address] [facility] Potassium 4.1 3.5 - 5.5 mmol/L LAB CHEMISTRY METHOD 03/27/2025 1:[address] [facility] Chloride 105 96 - 110 mmol/L LAB CHEMISTRY METHOD 03/27/2025 1:[address] [facility] CO2 30 21 - 32 mmol/L LAB CHEMISTRY METHOD 03/27/2025 1:[address] [facility] Anion Gap 6 3 - 11 LAB CHEMISTRY METHOD 03/27/2025 1:[address] [facility] Glucose 98 70 - 100 mg/dL LAB CHEMISTRY METHOD 03/27/2025 1:[address] [facility] BUN 12 5 - 25 mg/dL LAB CHEMISTRY METHOD 03/27/2025 1:[address] [facility] Creatinine 0.75 0.70 - 1.30 mg/dL LAB CHEMISTRY METHOD 03/27/2025 1:39 PM EDT [facility] eGFR 93 >=60 mL/min/1. 73m2 LAB CHEMISTRY METHOD 03/27/2025 1:39 PM EDT [facility] Comment:Calculation based on the Chronic Kidney Disease Epidemiology Collaboration (CKD-EPI) equation refit without adjustment for race. BUN/Creatinine Ratio 16.0 LAB CHEMISTRY METHOD 03/27/2025 1:39 PM EDT [facility] Calcium 8.6 8.5 - 10.5 mg/dL LAB CHEMISTRY METHOD 03/27/2025 1:39 PM EDT [facility] Blood Venous blood specimen / Unknown Venipuncture / Unknown 03/27/2025 6:15 AM EDT 03/27/2025 10:58 AM EDT us Smitha Mcbride MD LAB BLOOD ORDERABLES Fin al Result [facility] [address] [place] [address], documented in this encounter Visit Diagnoses Diagnosis [...] documented as of this encounter Care Teams Veterinarian Helper Relationship Specialty Start Date End Date Av Weathers PA [address] [place] [id number] PCP - General Internal Medicine 12/12/20 documented as of this encounter
--- OUTSIDE RECORDS SUMMARY | 2025-09-28 15:45 | XMS_ITS | Encounter Summary ---
Author Organization [facility] Address [address] [place] [address] Care Team Providers Care Traffic Clerk Name Role Phone Av Weathers Primary Care Provider +1 [phone] Encounter Details Date Type Department Care Team (Late st Contact Info) Description 03/31/[address] [facility] - Main Lab [address] [facility] [place] [address] Smitha Mcbride MD [address] [phone] Rhabdomyolysis Social History Tobacco Use Types Packs/Day [...] care for your loved ones. For example, child's nurse or elderly care for an older [...] AM EDT) WBC 9.7 4.8 - 10.8 K/[facility] LAB HEMETOLOGY METHOD 04/03/2025 10:54 AM [facility] RBC 3.90(L) 4.50 - 5.50 M/mcL LAB HEMETOLOGY METHOD 04/03/2025 10:54 AM [facility] Hemoglobin 12.3(L) 13.5 - 17.5 g/dL LAB HEMETOLOGY METHOD 04/03/2025 10:54 AM [facility] Hematocrit 37.8(L) 42.0 - 54.0 % LAB HEMETOLOGY METHOD 04/03/2025 10:54 AM [facility] MCV 97.4 79.0 - 98.0 FL LAB HEMETOLOGY METHOD 04/03/2025 10:54 AM [facility] MCH 31.7 27.0 - 32.0 pcg LAB HEMETOLOGY METHOD 04/03/2025 10:54 AM [facility] MCHC 32.5 32.0 - 37.0 g/dL LAB HEMETOLOGY METHOD 04/03/2025 10:54 AM [facility] RDW 12.2 11.0 - 15.0 % LAB HEMETOLOGY METHOD 04/03/2025 10:54 AM [facility] Platelets 304 130 - 400 K/mcL LAB HEMETOLOGY METHOD 04/03/2025 10:54 AM [facility] MPV 10.1 7.0 - 11.0 FL LAB HEMETOLOGY METHOD 04/03/2025 10:54 AM [facility] NRBC 0.0 <1.0 % LAB HEMETOLOGY METHOD 04/03/2025 10:54 AM [facility] NRBC Absolute 0.00 <0.10 K/mcL LAB HEMETOLOGY METHOD 04/03/2025 10:54 AM [facility] Blood Venous blood specimen / Unknown Venipuncture / Unknown 04/03/2025 6:11 AM EDT 04/03/2025 10:15 AM EDT us Smitha Mcbride MD LAB BLOOD ORDERABLES Fin al Result [facility] [address] [place] [address], [place] [phone] * Basic metabolic panel (04/03/2025 6:11 AM EDT) Pathologist [facility] Sodium 142 133 - 145 mmol/L LAB CHEMISTRY METHOD 04/03/2025 11:40 AM [facility] Potassium 3.9 3.5 - 5.5 mmol/L LAB CHEMISTRY METHOD 04/03/2025 11:40 AM [facility] Chloride 103 96 - 110 mmol/L LAB CHEMISTRY METHOD 04/03/2025 11:40 AM [facility] CO2 30 21 - 32 mmol/L LAB CHEMISTRY METHOD 04/03/2025 11:40 AM [facility] Anion Gap 9 3 - 11 LAB CHEMISTRY METHOD 04/03/2025 11:40 AM [facility] Glucose 93 70 - 100 mg/dL LAB CHEMISTRY METHOD 04/03/2025 11:40 AM [facility] BUN 8 5 - 25 mg/dL LAB CHEMISTRY METHOD 04/03/2025 11:40 AM [facility] Creatinine 0.75 0.70 - 1.30 mg/dL LAB CHEMISTRY METHOD 04/03/2025 11:40 AM [facility] eGFR 93 >=60 mL/min/1. 73m2 LAB CHEMISTRY METHOD 04/03/2025 11:40 AM [facility] Comment:Calculation based on the Chronic Kidney Disease Epidemiology Collaboration (CKD-EPI) equation refit without adjustment for race. 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
--- NOTE | 2025-09-28 16:26 | PHA.MEDREC ---
Pharmacy Consult ? Medication Reconciliation Pharmacy has completed the medication reconciliation. Utilized med list from [facility] to confirm medications, matched claims.
--- NOTE | 2025-09-28 17:10 | PC.NURSE ---
by the time charge got to MRI, the pt had the mri performed without the medication
--- NOTE | 2025-09-28 18:39 | PC.NURSE ---
nurse to nurse report given to [place] [facility] triage nurse- she hung up before we could obtain the name.
== END 2025-09-28 19:22 | disposition short-term general hospital (02) ==
PROVIDERS: Physician Assistant; Emergency Provider Emergency Medicine; PCP Internal Medicine
DX: I63.9 Cerebral infarction, unspecified (principal); D72.829 Elevated white blood cell count, unspecified; R41.82 Altered mental status, unspecified; N39.0 Urinary tract infection, site not specified; I48.91 Unspecified atrial fibrillation; R53.1 Weakness; R29.810 Facial weakness; R29.705 NIHSS score 5; Z03.818 Encounter for observation for suspected exposure to other biological agents ruled out; Z79.899 Other long term (current) drug therapy
CPT/HCPCS: 36415; 70450; 70496; 70498; 70551; 80048; 80061; 81001; 82947; 83605; 84484; 85025; 85610; 85730; 87040; 87086; 87637; 93005; 96365; 96366; 96375; 99285; 99291; J1956; J2250; Q9967

== ENCOUNTER → 2025-09-28 14:07 | Outpatient (BNV) | payer MEDICARE, SELFPAY | PROVIDERS: Emergency Provider Emergency Medicine; Visit Provider Student in an Organized Health Care Education/Training Program | DX: I63.532 Cerebral infarction due to unspecified occlusion or stenosis of left posterior cerebral artery (principal); R20.0 Anesthesia of skin | CPT/HCPCS: 70450; 70496; 70498; 70551 ==

== ENCOUNTER → 2025-09-28 14:07 | Outpatient (BNV) | payer MEDICARE, SELFPAY | PROVIDERS: Emergency Provider Emergency Medicine; PCP Internal Medicine; Visit Provider Internal Medicine Cardiovascular Disease | DX: I48.91 Unspecified atrial fibrillation (principal) | CPT/HCPCS: 93010 ==